=== PATIENT | male | born 1945 | race Caucasian/White ===

== ENCOUNTER 2016-06-21 10:03 | Observation (INO) | payer OTHER ==
[~2016-06-21] VITALS: Ht 160 cm; Wt 99.2 kg
[~2016-06-21 10:03] MED LIST: AMIO200T4 PO; APIX1TAB3 PO; ASPI81TA28 PO; CARV25TA2 PO; CHOL100010 PO; FENO145T26 PO; FRS/40 PO; LISI20TA3 PO; MAGN400T6 PO; METF1000 PO; NITR0.4S UT; POTA10CA28 PO; ROSU20TA PO; SPIR25TA PO; TERA5CAP PO
[2016-06-21] MEDS ORDERED: ONDANSETRON INJ 2 MG/ML 2 ML VIAL IV STA (10:58)
[2016-06-21] MEDS ORDERED: MoRPHine SULFATE 4 MG/ML 1 ML CARP\\VIAL IV STA ×2 (10:58→12:34)
[2016-06-21] MEDS ORDERED: CARVEDILOL 25 MG TAB PO STA (10:58)
[2016-06-21] MEDS ORDERED: LISINOPRIL 20 MG TAB PO STA (10:58)
[2016-06-21 11:32] LABS: BASO % 0.2 %; BASO ABS # 0.02 K/uL (0-0.2); COMPLETE YES; EOS % 0.8 %; IG% 0.3 %; LYMPH % 16.8 %; MEAN CELL VOLUME 90.7 fL (80-100); MEAN CORPUSCULAR HEMOGLOBIN 31.8 pg (25-34); MEAN PLATELET VOLUME 10.7 fL (7.4-10.4); MONO % 5.6 %; NEUT % 76.3 %; PLATELET COUNT 197 K/uL (130-400); RED BLOOD COUNT 5.51 M/uL (4.7-6.1); WHITE BLOOD COUNT 11.89 K/uL (4.8-10.8)
[2016-06-21 11:40] LABS: INR 1.1 (0.9-1.1); PROTHROMBIN TIME (PATIENT) 11.9 SECONDS (9.0-12.0)
--- NOTE | 2016-06-21 11:41 | DIAGNOSTIC IMAGING REPORT ---
LUMBAR SPINE 5 VIEWS CLINICAL HISTORY: Lumbar back pain. FINDINGS: 5 views of the lumbar spine are obtained. No prior studies are available for comparison at the time of dictation. The skeletal structures are osteopenic. There is no radiographic evidence of fracture or malalignment. Vertebral body height and alignment are maintained. There is straightening of the lumbar lordosis. The transverse and spinous processes appear intact. There is no evidence of spondylolysis. Large anterior osteophytes are seen throughout. There is moderate to advanced degenerative disc space narrowing at L5-S1 with associated endplate sclerosis and a posterior disc osteophyte complex at this level. Mild to moderate degenerative disc space narrowing is seen at the remaining lumbar levels. Posterior disc osteophyte complexes are also seen at L3-L4 and L4-L5. Facet arthropathy is noted in the lower lumbar region. The visualized bony pelvis appears intact. Numerous phleboliths are observed in the pelvis. There is a nonobstructed abdominal bowel gas pattern. Moderate to advanced atherosclerotic calcification is noted in the abdominal aorta. IMPRESSION: 1. There is no acute bony abnormality seen involving the lumbosacral spine. 2. Osteopenia and lumbosacral spondylosis as above. Dictated: 06/21/2016 11:37 AM Transcribed: 06/21/2016 11:41 AM RADHA_Elliot Electronically signed by: Jb Mckinney M.D. 06/21/2016 12:03 PM
[2016-06-21 11:45] LABS: URINE APPEARANCE CLEAR (CLEAR); URINE BILIRUBIN NEG (NEG); URINE COLOR YELLOW; URINE EPITHELIAL CELL AUTO >30 /lpf (0-5); URINE NITRITE NEG (NEG); URINE SPECIFIC GRAVITY 1.022 (1.000-1.030); UROBILINOGEN NEG (NEG)
[2016-06-21 11:52] LABS: BUN/CREATININE RATIO 17.1 (10-20); CALCIUM 9.1 mg/dl (8.5-10.1); POTASSIUM 3.4 mmol/L (3.5-5.1)
[2016-06-21 12:03] LABS: MANUAL MICROSCOPIC REQUIRED? NO; REVIEW REQ? NO
[2016-06-21] MEDS ORDERED: NITROGLYCERIN OINT 2% 1GM PACKET EXT ONE (12:45)
[2016-06-21] MEDS ORDERED: TRAM-453 PO (13:14)
[2016-06-21] MEDS ORDERED: ONDANSETRON INJ 2 MG/ML 2 ML VIAL IV PRN (13:15)
[2016-06-21] MEDS ORDERED: GLUCOSE 10 TABS/TUBE PO PRN (13:15)
[2016-06-21] MEDS ORDERED: DEXTROSE 50% 50 ML SYR IV PRN (13:15)
[2016-06-21] MEDS ORDERED: NITROGLYCERIN 0.4 MG SL PER TAB CHARGE SL PRN (13:15)
[2016-06-21] MEDS ORDERED: GLUCAGON FOR INJ 1 MG VIAL SQ PRN (13:15)
[2016-06-21] MEDS ORDERED: MoRPHine SULFATE 2 MG/ML CARP IV PRN (13:15)
[2016-06-21] MEDS ORDERED: ACETAMINOPHEN 325 MG TAB PO PRN (13:15)
[2016-06-21] MEDS ORDERED: GLUCOSE 40% GEL 15 GM TUBE PO PRN (13:15)
[2016-06-21] MEDS ORDERED: POTASSIUM CHLORIDE 10 MEQ TABCR PO SCH (13:16)
[2016-06-21] MEDS ORDERED: SPIRONOLACTONE 25 MG TAB PO SCH (13:16)
[2016-06-21] MEDS ORDERED: FUROSEMIDE 40 MG TAB PO SCH (13:16)
--- NOTE | 2016-06-21 13:32 | DIAGNOSTIC IMAGING REPORT ---
CHEST ONE VIEW PORTABLE CLINICAL HISTORY: Elevated troponin. Back pain. COMPARISON STUDY: Chest radiograph October 06, 2015. FINDINGS: There is no pneumothorax or pleural effusion. A dual lead left subclavian pacemaker is in place. Cardiomegaly is unchanged. There is no evidence of pulmonary edema. IMPRESSION: No acute cardiopulmonary findings. Stable cardiomegaly. Electronically signed by: Darrick Begum M.D. 06/21/2016 1:30 PM
--- NOTE | 2016-06-21 13:49 | History and Physical ---
History & Physical Date & Time of Service: Jun 21, 2016 at 13:26 Chief Complaint: Back Pain Primary Care Physician: Tadeo Barone M.D. History of Present Illness Source: patient, clinic records, hospital records Patient seen and examined. 71 year old male with PMHx of PAF s/p pacemaker on Eliquis, nonobstructing CAD, DM2, HTN and other problems listed below presents to the ED complaining of back pain x 1 week. Patient reports he has low back pain that radiates down the right leg. He describes the pain as sharp and rates it as a 10/10. The pain started when he was putting up the [place] tree. He says he has had this pain multiple times in the past and was told he has arthritis. He states it usually goes away in 3-4 days. He reports he hasn't been taking his medications as prescribed the last several days either. He denies fevers, chills, URI symptoms, chest pain, SOB, palpitations, nausea, vomiting, diarrhea, dysuria, incontinence, saddle anesthesia, calf pain, edema, falls, injuries. In the ED BP is significantly elevated >240 systolically, troponin is slightly bumped at 0.128. EKG is nonischemic, L-spine X-ray is without acute abnormality. He received his home BP meds, morphine and nitropaste and is resting comfortably. He will be observed for further workup and treatment. Past Medical/Surgical History Medical Problems: (1) CAD (coronary artery disease) Permanent Comment: Non-obstructive by cath in 2009 Status: Chronic (2) Chronic diastolic CHF (congestive heart failure), NYHA class 1 Permanent Comment: Echo 05/2015- EF 65-69%, grade II diastolic dysfunction, mild AV regurgitation, mildly enlarged aortic root and proximal ascending aorta Status: Chronic (3) CKD (chronic kidney disease), stage III Status: Chronic (4) DM type 2 (diabetes mellitus, type 2) Status: Chronic (5) Dyslipidemia Status: Chronic (6) Hypertension Status: Chronic (7) Paroxysmal a-fib Permanent Comment: on Coumadin Status: Chronic (8) Sleep apnea Permanent Comment: s/p UPPP Status: Chronic (9) Tachy-aquiles syndrome Permanent Comment: S/P pacemaker in 2013 Status: Chronic Surgical Problems: (1) H/O inguinal hernia repair Status: Chronic (2) H/O palate surgery Status: Chronic (3) H/O umbilical hernia repair Status: Chronic (4) History of cataract surgery Status: Chronic Family History Hypertension Kidney disease Stroke FATHER MOTHER Social History Smoking Status: Never Smoker Alcohol Use: none Drug Use: none Marital Status: Housing status: lives with significant other Occupational Status: employed, retired Immunizations History of Influenza Vaccine: Unknown Influenza Vaccine Date: Mar 13, 2013 History of Tetanus Vaccine?: Unknown History of Pneumococcal: Unknown History of Hepatitis B Vaccine: Unknown Allergies Coded Allergies: No Known Allergies (Unverified , 06/21/16) Home Medications Scheduled Amiodarone Hcl (Cordarone), 200 MG PO DAILY Apixaban (Eliquis), 5 MG PO BID Aspirin (Aspirin Ec), 81 MG PO QAM Carvedilol (Coreg), 37.5 MG PO BIDM Cholecalciferol (Vitamin D), 1,000 INTER.UNIT PO DAILY Fenofibrate (Tricor), 145 MG PO DAILY Furosemide (Lasix), 40 MG PO DAILY Gabapentin (Gabapentin), 300 MG PO TID Lidocaine (Lidocaine), 1 PATCH TD QAM Lisinopril (Prinivil), 20 MG PO BID Magnesium Oxide (Mag-Ox), 400 MG PO DAILY Metformin Hcl (Glucophage), 1,000 MG PO BIDM Potassium Chloride (Micro-K Ext Rel), 20 MEQ PO DAILY Rosuvastatin Calcium (Crestor), 20 MG PO HS Spironolactone (Aldactone), 12.5 MG PO DAILY Terazosin (Hytrin), 5 MG PO HS Scheduled PRN Hydrocodone/Acetaminophen 5MG/325MG ([place] 5MG/325MG), 1-2 TAB PO Q4H PRN for Pain Nitroglycerin (Nitrostat), 0.4 MG UT UD PRN for Chest Pain Tramadol Hcl (Ultram), 50 MG PO Q6H PRN for Pain Review of Systems See above for pertinent positives & negatives. A total of 10 systems reviewed and were otherwise negative. Physical Exam Vital Signs Date Time Temp Pulse Resp B/P Pulse Ox O2 Delivery O2 Flow Rate FiO2 06/21/16 12:41 80 17 196/108 95 06/21/16 12:23 60 06/21/16 12:01 74 22 202/103 94 Room Air 06/21/16 11:00 62 22 221/107 95 Room Air 06/21/16 10:10 88 06/21/16 10:09 37.0 90 20 254/123 92 Room Air General Appearance: + pertinent finding (Pleasant WD/WN 71 year old male lying in bed in NAD ) Head: normocephalic, atraumatic Eyes: EOMI, sclerae normal ENT: hearing grossly normal, pharynx normal Neck: supple, no JVD, trachea midline Respiratory/Chest: chest non-tender, lungs clear, normal breath sounds, no respiratory distress, no accessory muscle use Cardiovascular: regular rate, rhythm, no gallop, no JVD, no murmur, normal peripheral pulses Abdomen/GI: normal bowel sounds, non tender, soft Back: + pertinent finding (tenderness to palpation right SI, no rashes, bruising, muscle spasms noted ) Extremities/Musculoskelatal: no calf tenderness, normal capillary refill, + pedal edema (trace ) Neurologic/Psych: alert, oriented x 3, + pertinent finding (no motor or sensory deficits noted on gross exam ) Skin: normal color, warm/dry, no rash Lymphatic: no adenopathy Diagnostics Laboratory Results Results Past 24 Hours Test 06/21/16 11:10 06/21/16 11:15 Range/Units Urine Color YELLOW Urine Appearance CLEAR CLEAR Urine pH 6.0 4.5-7.5 Urine Specific [place] 1.022 1.000-1.030 Urine Protein 2+ NEG Urine Glucose (UA) 2+ NEG Urine Ketones NEG NEG Urine Occult Blood NEG NEG Urine Nitrite NEG NEG Urine Bilirubin NEG NEG Urine Urobilinogen NEG NEG Urine Leukocyte Esterase NEG NEG Urine WBC (Auto) 1-5 0-5 /hpf Urine RBC (Auto) 0-4 0-4 /hpf Urine Hyaline Casts (Auto) 1-5 0-5 /lpf Urine Epithelial Cells (Auto) >30 0-5 /lpf Urine Bacteria (Auto) NEG NEG White Blood Count 11.89 4.8-10.8 K/uL Red Blood Count 5.51 4.7-6.1 M/uL Hemoglobin 17.5 14.0-18.0 g/dL Hematocrit 50.0 42-52 % Mean Corpuscular Volume 90.7 80-100 fL Mean Corpuscular Hemoglobin 31.8 25-34 pg Mean Corpuscular Hemoglobin Concent 35.0 32-36 g/dl Platelet Count 197 130-400 K/uL Mean Platelet Volume 10.7 7.4-10.4 fL Neutrophils (%) (Auto) 76.3 % Lymphocytes (%) (Auto) 16.8 % Monocytes (%) (Auto) 5.6 % Eosinophils (%) (Auto) 0.8 % Basophils (%) (Auto) 0.2 % Neutrophils # (Auto) 9.07 1.4-6.5 K/uL Lymphocytes # (Auto) 2.00 1.2-3.4 K/uL Monocytes # (Auto) 0.67 0.11-0.59 K/uL Eosinophils # (Auto) 0.09 0-0.5 K/uL Basophils # (Auto) 0.02 0-0.2 K/uL RDW Standard Deviation 46.3 36.4-46.3 fL RDW Coefficient of Variation 14.0 11.5-14.5 % Immature Granulocyte % (Auto) 0.3 % Immature Granulocyte # (Auto) 0.04 0.00-0.02 K/uL Prothrombin Time 11.9 9.0-12.0 SECONDS Prothromb Time International Ratio 1.1 0.9-1.1 Activated Partial Thromboplast Time 24.9 21.0-31.0 SECONDS Partial Thromboplastin Ratio 1.0 Sodium Level 140 136-145 mmol/L Potassium Level 3.4 3.5-5.1 mmol/L Chloride Level 102 98-107 mmol/L Carbon Dioxide Level 29 21-32 mmol/L Anion Gap 9.0 3-11 mmol/L Blood Urea Nitrogen 17 7-18 mg/dl Creatinine 1.00 0.60-1.40 mg/dl Est Creatinine Clear Calc Drug Dose 70.3 ml/min Estimated GFR () 87.4 Estimated GFR (Non- 75.4 BUN/Creatinine Ratio 17.1 10-20 Random Glucose 200 70-99 mg/dl Calcium Level 9.1 8.5-10.1 mg/dl Total Bilirubin 0.7 0.2-1 mg/dl Direct Bilirubin 0.2 0-0.2 mg/dl Aspartate Amino Transf (AST/SGOT) 27 15-37 U/L Alanine Aminotransferase (ALT/SGPT) 44 12-78 U/L Alkaline Phosphatase 65 45-117 U/L Troponin I 0.189 0-0.045 ng/ml Total Protein 7.4 6.4-8.2 gm/dl Albumin 4.0 3.4-5.0 gm/dl Diagnostic Radiology L-spine XR Per radiologist read: IMPRESSION: 1. There is no acute bony abnormality seen involving the lumbosacral spine. 2. Osteopenia and lumbosacral spondylosis as above. EKG Atrial Paced with prolonged AV conduction 83 BPM QTc 509 Impression Assessment and Plan 71 year old male presents to the ED complaining of back pain since putting up his [place] tree one week ago - pain similar to other episodes LOW BACK PAIN -observation to tele -? sciatica, has history of similar pain in the past -L-spine XR negative -Pain control with Lidoderm patch, Percocet prn - warm compresses -PT/OT eval -if pain doesn't improve consider ortho consult and additional imaging - patient has pacemaker in situ HYPERTENSIVE URGENCY -SBP >240 upon arrival -did not take home meds - Improved to 170s systolically after home meds given - has not been compliant recently -Likely pain component as well -Continue home BP meds, add nitropaste for elevated troponin -pain control as above -monitor in tele ELEVATED TROPONIN - h/o nonobstructive CAD -troponin 0.189, no chest pain, SOB, no ekg changes -likely troponin leak secondary to HTN urgency -check CXR -monitor in tele -Serial Jeffrey, EKGs -nitropaste ordered -continue BB, Aspirin, Statin -if troponin continues may consider repeating Echo PAF -currently paced rhythm -continue Amiodarone, BB, Eliquis -monitor in tele HLD -continue Statin -check lipid panel Diastolic CHF -stable -Last echo with preserved EF, diastolic dysfunction grade 2 -appears euvolemic -continue Lasix, Aldactone DM2 -A1c pending -Hold po diabetic agents -SSI coverage -BSG AC HS -Consistent carbohydrate diet BPH -continue Hytrin DVT PROPHYLAXIS: Eliquis CODE STATUS: FULL CODE DISPO:observation pending further workup Patient seen in collaboration with Dr. Ng. He will be followed daily by Dr Laura Miranda Attending addendum: Agree with the above H&P in its entirety. Please see above for details Patient with complaints of persistent back pain since putting up a tree/ decorations, states that he has experienced similar pain in the past but it has generally never persisted beyond a few days unlike this time. He also reports the pain radiates down his leg and is made worse with movement. Denies any recent falls. Cardiac: RR, S1 and S2 auscultated Resp: CTA B/L MSK: pain and limited ROM with right straight leg raise, some pain on right with left straight leg raise; no cynanosis or edema LOW BACK PAIN: -most likely strain; unable to obtain MRI due to pacer, but could consider CT scan if pain is not improved with analgesia and therapy -PT/OT -analgesia -x ray does not suggest any fracture or dislocation VTE Prophylaxis VTE Risk Assessment Done? Y/N: Yes Risk Level: Moderate
[2016-06-21] MEDS ORDERED: IV FLUIDS COMPLETED PRN (14:30)
[2016-06-21 14:42] VITALS: BP 190/130; PULSE 61; TEMP 36.7; Ht 160 cm; Wt 99.2 kg
[2016-06-21 15:30] VITALS: BP 187/95; PULSE 64
[2016-06-21] MEDS ORDERED: INFLUENZA VIRUS QUAD VACCINE 0.5 ML SYR IM. ONE (15:45)
[2016-06-21] MEDS ORDERED: INFLUENZA ADMINISTRATION CHARGE ONE (15:45)
[2016-06-21] MEDS: LIDODERM (LIDOCAINE) PATCH 5% TD SCH (16:18)
[2016-06-21] MEDS: NITROGLYCERIN OINT 2% 1GM PACKET EXT SCH ×2 (16:19→23:21)
[2016-06-21] MEDS: CARVEDILOL 12.5 MG TAB PO SCH (16:19)
[2016-06-21] MEDS: INSULIN ASPART 100 UNITS/ML 3 ML PEN SC SCH ×2 (16:40→20:28)
--- NOTE | 2016-06-21 17:06 | EMERGENCY ROOM VISIT NOTE ---
History Report prepared by [place]: Everardo Sutton Under the Supervision of: Dr. Fredi Hernandez M.D. First contact with patient: 10:50 Chief Complaint: BACK PAIN Stated Complaint: BACK PAIN History of Present Illness The patient is a 71 year old male who presents to the Emergency Room with complaints of worsened lower back pain for the past week. The pain is sharp and radiates around his side towards the abdomen. The patient occasionally feels short of breath. The patient has pain radiating down his right leg. He denies any fevers, headaches, chest pain, abdominal pain, vomiting, diarrhea, rectal bleeding, or urinary symptoms. He also denies weakness or numbness of the extremities and incontinence of the bowel or bladder. The patient has had the same pain intermittently for years. He was diagnosed with arthritis by Dr. Barone three months ago. He was not given a prescription for pain. He did not see Dr. Barone this week. The patient is being treated for hypertension. He did not take his medications this morning. Source of History: patient Onset: one week Position: back (lower) Symptom Intensity: moderate Quality: sharp Timing: worsening Associated Symptoms: + SOB, No abdominal pain, No chest pain, No diarrhea, No fevers, No headache, No hematochezia, No numbness, No urinary symptoms, No vomiting, No weakness Review of Systems See HPI for pertinent positives & negatives. A total of 10 systems reviewed and were otherwise negative. 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 (17) Umbilical Hernia Surgical Problems: (1) H/O inguinal hernia repair (2) H/O palate surgery (3) H/O umbilical hernia repair (4) History of cataract surgery Family History Hypertension Kidney disease Stroke FATHER MOTHER Social History Smoking Status: Never Smoker Alcohol Use: none Drug Use: none Marital Status: Occupation Status: employed, retired Current/Historical Medications Scheduled Amiodarone Hcl (Cordarone), 200 MG PO DAILY Apixaban (Eliquis), 5 MG PO BID Aspirin (Aspirin Ec), 81 MG PO QAM Carvedilol (Coreg), 37.5 MG PO BIDM Cholecalciferol (Vitamin D), 1,000 INTER.UNIT PO DAILY Fenofibrate (Tricor), 145 MG PO DAILY Furosemide (Lasix), 40 MG PO DAILY Lisinopril (Prinivil), 20 MG PO BID Magnesium Oxide (Mag-Ox), 400 MG PO DAILY Metformin Hcl (Glucophage), 1,000 MG PO BIDM Potassium Chloride (Micro-K Ext Rel), 20 MEQ PO DAILY Rosuvastatin Calcium (Crestor), 20 MG PO HS Spironolactone (Aldactone), 12.5 MG PO DAILY Terazosin (Hytrin), 5 MG PO HS Scheduled PRN Nitroglycerin (Nitrostat), 0.4 MG UT UD PRN for Chest Pain Tramadol Hcl (Ultram), 50 MG PO Q6H PRN for Pain Allergies Coded Allergies: No Known Allergies (Unverified , 06/21/16) Physical Exam Vital Signs Date Time Temp Pulse Resp B/P Pulse Ox O2 Delivery O2 Flow Rate FiO2 06/21/16 12:41 80 17 196/108 95 06/21/16 12:23 60 06/21/16 12:01 74 22 202/103 94 Room Air 06/21/16 11:00 62 22 221/107 95 Room Air 06/21/16 10:10 88 06/21/16 10:09 37.0 90 20 254/123 92 Room Air Physical Exam Constitutional: Vital signs reviewed. Diaphoretic and hypertensive. Eyes: Pupils are equal round reactive to light. Conjunctiva are noninjected. ENT: Pharynx is clear without erythema or exudate. Mucous membranes are moist. Neck supple without meningeal signs. Respiratory: Clear to auscultation bilaterally. Breath sounds are equal bilaterally. Cardiovascular: Regular rate and rhythm. No rubs or gallops. GI: Soft, nondistended and nontender. Bowel sounds are present. Musculoskeletal: No peripheral edema. No CVA tenderness. Right SI joint tenderness, no midline tenderness to the lumbosacral spine. Positive straight leg raise on the right side. Integumentary: No cyanosis. Neurological: The patient is awake and alert. No focal deficits. Motor and sensation are intact in the lower extremities. Psychiatric: Normal affect. Medical Decision & Procedures ER Provider Diagnostic Interpretation: X-ray results as stated below per interpretation by me and the radiologist: LUMBAR SPINE 5 VIEWS: CLINICAL HISTORY: Lumbar back pain. FINDINGS: Five views of the lumbar spine are obtained. No prior studies are available for comparison at the time of dictation. The skeletal structures are osteopenic. There is no radiographic evidence of fracture or malalignment. Vertebral body height and alignment are maintained. There is straightening of the lumbar lordosis. The transverse and spinous processes appear intact. There is no evidence of spondylolysis. Large anterior osteophytes are seen throughout. There is moderate to advanced degenerative disc space narrowing at L5-S1 with associated endplate sclerosis and a posterior disc osteophyte complex at this level. Mild to moderate degenerative disc space narrowing is seen at the remaining lumbar levels. Posterior disc osteophyte complexes are also seen at L3-L4 and L4-L5. Facet arthropathy is noted in the lower lumbar region. The visualized bony pelvis appears intact. Numerous phleboliths are observed in the pelvis. There is a nonobstructed abdominal bowel gas pattern. Moderate to advanced atherosclerotic calcification is noted in the abdominal aorta. IMPRESSION: 1. There is no acute bony abnormalities seen involving the lumbosacral spine. 2. Osteopenia and lumbosacral spondylosis as above. Dictated: 06/21/2016 11:37 AM Transcribed: 06/21/2016 11:41 AM [facility] Laboratory Results 06/21/16 11:15 Red Blood Count 5.51, Mean Corpuscular Volume 90.7, Mean Corpuscular Hemoglobin 31.8, Mean Corpuscular Hemoglobin Concent 35.0, Mean Platelet Volume 10.7, Neutrophils (%) (Auto) 76.3, Lymphocytes (%) (Auto) 16.8, Monocytes (%) (Auto) 5.6, Eosinophils (%) (Auto) 0.8, Basophils (%) (Auto) 0.2, Neutrophils # (Auto) 9.07, Lymphocytes # (Auto) 2.00, Monocytes # (Auto) 0.67, Eosinophils # (Auto) 0.09, Basophils # (Auto) 0.02 06/21/16 11:15 Test 06/21/16 11:10 06/21/16 11:15 Urine Color YELLOW Urine Appearance CLEAR (CLEAR) Urine pH 6.0 (4.5-7.5) Urine Specific [place] 1.022 (1.000-1.030) Urine Protein 2+ (NEG) Urine Glucose (UA) 2+ (NEG) Urine Ketones NEG (NEG) Urine Occult Blood NEG (NEG) Urine Nitrite NEG (NEG) Urine Bilirubin NEG (NEG) Urine Urobilinogen NEG (NEG) Urine Leukocyte Esterase NEG (NEG) Urine WBC (Auto) 1-5 /hpf (0-5) Urine RBC (Auto) 0-4 /hpf (0-4) Urine Hyaline Casts (Auto) 1-5 /lpf (0-5) Urine Epithelial Cells (Auto) >30 /lpf (0-5) Urine Bacteria (Auto) NEG (NEG) White Blood Count 11.89 K/uL (4.8-10.8) Red Blood Count 5.51 M/uL (4.7-6.1) Hemoglobin 17.5 g/dL (14.0-18.0) Hematocrit 50.0 % (42-52) Mean Corpuscular Volume 90.7 fL (80-100) Mean Corpuscular Hemoglobin 31.8 pg (25-34) Mean Corpuscular Hemoglobin Concent 35.0 g/dl (32-36) Platelet Count 197 K/uL (130-400) Mean Platelet Volume 10.7 fL (7.4-10.4) Neutrophils (%) (Auto) 76.3 % Lymphocytes (%) (Auto) 16.8 % Monocytes (%) (Auto) 5.6 % Eosinophils (%) (Auto) 0.8 % Basophils (%) (Auto) 0.2 % Neutrophils # (Auto) 9.07 K/uL (1.4-6.5) Lymphocytes # (Auto) 2.00 K/uL (1.2-3.4) Monocytes # (Auto) 0.67 K/uL (0.11-0.59) Eosinophils # (Auto) 0.09 K/uL (0-0.5) Basophils # (Auto) 0.02 K/uL (0-0.2) RDW Standard Deviation 46.3 fL (36.4-46.3) RDW Coefficient of Variation 14.0 % (11.5-14.5) Immature Granulocyte % (Auto) 0.3 % Immature Granulocyte # (Auto) 0.04 K/uL (0.00-0.02) Prothrombin Time 11.9 SECONDS (9.0-12.0) Prothromb Time International Ratio 1.1 (0.9-1.1) Activated Partial Thromboplast Time 24.9 SECONDS (21.0-31.0) Partial Thromboplastin Ratio 1.0 Anion Gap 9.0 mmol/L (3-11) Est Creatinine Clear Calc Drug Dose 70.3 ml/min Estimated GFR () 87.4 Estimated GFR (Non- 75.4 BUN/Creatinine Ratio 17.1 (10-20) Calcium Level 9.1 mg/dl (8.5-10.1) Total Bilirubin 0.7 mg/dl (0.2-1) Direct Bilirubin 0.2 mg/dl (0-0.2) Aspartate Amino Transf (AST/SGOT) 27 U/L (15-37) Alanine Aminotransferase (ALT/SGPT) 44 U/L (12-78) Alkaline Phosphatase 65 U/L (45-117) Troponin I 0.189 ng/ml (0-0.045) Total Protein 7.4 gm/dl (6.4-8.2) Albumin 4.0 gm/dl (3.4-5.0) Laboratory results as reviewed by me. Medications Administered Medications (Trade) Dose Ordered Sig/Juliette Route Start Time Stop Time Status Last Admin Dose Admin Lisinopril (Zestril Tab) 20 mg NOW STAT PO 06/21/16 10:58 06/21/16 11:02 DC 06/21/16 11:21 20 MG Carvedilol (Coreg Tab) 37.5 mg NOW STAT PO 06/21/16 10:58 06/21/16 11:02 DC 06/21/16 11:21 37.5 MG Morphine Sulfate (MoRPHine SULFATE INJ) 4 mg NOW STAT IV 06/21/16 10:58 06/21/16 11:02 DC 06/21/16 11:12 4 MG Ondansetron HCl (Zofran Inj) 4 mg NOW STAT IV 06/21/16 10:58 06/21/16 11:02 DC 06/21/16 11:11 4 MG Nitroglycerin (Nitroglycerin 2% Oint) 1 inch NOW ONCE EXT 06/21/16 12:45 06/21/16 12:46 DC 06/21/16 12:42 1 INCH Morphine Sulfate (MoRPHine SULFATE INJ) 4 mg NOW STAT IV 06/21/16 12:34 06/21/16 12:35 DC 06/21/16 12:50 4 MG ECG Indication: back/shoulder pain Rate (beats per minute): 83 Rhythm: other (Atrial paced) Findings: LAFB, no acute ischemic change, paced rhythm (atrial paced) ED Course 1055: The patient was evaluated in room C9. A complete history and physical exam was performed. 1058: Zofran 4 mg IV, Morphine Sulfate 4 mg IV, Coreg 37.5 mg PO, Zestril 20 mg PO. 1150: The patient is feel ing better. I discussed his X-rays. waiting for the rest of his blood work. 1234: The patient is still hypertensive. His pain is now coming back. I discussed the test results with him. He has not had any chest discomfort or upper back pain. 1241: I discussed the case with [facility] Burk [facility] The patient will be evaluated. 1245: Nitroglycerin 1 inch EXT. Medical Decision This is a 71-year-old male who presents with low back pain and hypertension. Differential diagnosis includes lumbar disc disease, radiculopathy, spinal stenosis, pathologic fracture, compression fracture, hypertensive urgency, medication noncompliance. I did perform a limited focused review of portions of the patient's old chart on the electronic medical record. The patient has had no recent pertinent visits to this hospital. I did evaluate the patient as noted above. IV access was established. The patient was placed on a continuous partner. The patient is severely hypertensive. He does state that he did not take his medications this morning. He was therefore given lisinopril and carvedilol per his regular dose. The patient is also in significant pain and was given morphine and Zofran IV. I did order and personally review the patient's 12-lead EKG and lumbar x-rays as described above. His 12-lead EKG does not demonstrate any acute ST elevation. There is no acute fracture on x-ray. I did order and review the patient's blood work as noted in the electronic medical record. His troponin is elevated. I did reassess the patient. His blood pressure improved somewhat but then came back up. He was given nitroglycerin paste to lower his blood pressure. He denies having any sort of chest discomfort or pain. He is not currently short of breath. He was also given additional morphine for his pain. I did discuss the test results with them. I did recommend hospitalization for further evaluation of his symptoms. I did discuss the case with the hospitalist and adult protective caseworker. Consults Time Called: 1235 Consulting Physician: Cheryle Burk PA-C, [facility] Returned Call: [phone]: I discussed the case with Cheryle Burk PA[facility]C, [facility]. The patient will be evaluated. Impression Primary Impression: Hypertensive urgency Additional Impressions: Intractable low back pain, Elevated troponin Scribe Attestation The scribe's documentation has been prepared under my direct and personally reviewed by me in its entirety. I confirm that the note above accurately reflects all work, treatment, procedures, and medical decision making performed by me. Departure Information Dispostion Being Evaluated By Hospitalist Referrals Tadeo Barone M.D. (PCP) Patient Instructions A Signature Page, My [facility]
[2016-06-21 17:57] LABS: CKMB/CK RATIO 6.1 (0-3.0)
[2016-06-21 18:16] VITALS: BP_SYST 172; BP_DIAS 96; BP_DIAS 97; PULSE 67
[2016-06-21 20:21] VITALS: BP_SYST 170; BP_SYST 175; BP_DIAS 88; BP_DIAS 93; PULSE 61; TEMP 36.8; O2SAT 92
[2016-06-21] MEDS: ROSUVASTATIN CALCIUM 20 MG TAB PO SCH (20:25)
[2016-06-21] MEDS: LISINOPRIL 20 MG TAB PO SCH (20:26)
[2016-06-21] MEDS: APIXABAN 2.5 MG TAB PO SCH (20:26)
[2016-06-21 23:45] VITALS: BP 188/104; PULSE 71; TEMP 36.8; O2SAT 90
[2016-06-22] VITALS (8 sets, daily range): BP systolic 121–179; BP diastolic 69–92; PULSE 60–64; TEMP 36.6–36.8; O2SAT 94–95
[2016-06-22 00:20] LABS: CKMB/CK RATIO 5.5 (0-3.0)
[2016-06-22] MEDS: NITROGLYCERIN OINT 2% 1GM PACKET EXT SCH ×2 (05:42→11:56)
[2016-06-22] MEDS: INSULIN ASPART 100 UNITS/ML 3 ML PEN SC SCH ×4 (07:00→20:41)
[2016-06-22] MEDS: CARVEDILOL 12.5 MG TAB PO SCH ×2 (07:34→17:23)
[2016-06-22] MEDS: APIXABAN 2.5 MG TAB PO SCH ×2 (07:34→20:38)
[2016-06-22] MEDS: AMIODARONE 200 MG TAB PO SCH (07:34)
[2016-06-22] MEDS: ASPIRIN 81 MG ECTAB PO SCH (07:34)
[2016-06-22] MEDS: FENOFIBRATE 145 MG TAB PO SCH (07:35)
[2016-06-22] MEDS: LISINOPRIL 20 MG TAB PO SCH ×2 (07:35→20:37)
[2016-06-22] MEDS: POTASSIUM CHLORIDE 10 MEQ TABCR PO SCH (07:35)
[2016-06-22] MEDS: CHOLECALCIFEROL 1000 INTER.UNIT TAB PO SCH (07:35)
[2016-06-22] MEDS: MAGNESIUM OXIDE 400 MG TAB PO SCH (07:35)
[2016-06-22] MEDS: LIDODERM (LIDOCAINE) PATCH 5% TD SCH (07:36)
[2016-06-22 08:05] LABS: ESTIMATED AVERAGE GLUCOSE 174 mg/dl; HA1C FLAG Normal (Normal)
[2016-06-22 08:24] LABS: BUN/CREATININE RATIO 22.2 (10-20); CALCIUM 8.6 mg/dl (8.5-10.1); CREATININE 1.1 mg/dl (0.60-1.40); MAGNESIUM 1.9 mg/dl (1.8-2.4); POTASSIUM 3.4 mmol/L (3.5-5.1)
[2016-06-22 08:27] LABS: CHOLESTEROL/HDL RATIO 6.1
[2016-06-22 08:58] LABS: MEAN CELL VOLUME 92.9 fL (80-100); MEAN CORPUSCULAR HEMOGLOBIN 31.5 pg (25-34); MEAN PLATELET VOLUME 10.7 fL (7.4-10.4); PLATELET COUNT 140 K/uL (130-400); RED BLOOD COUNT 4.63 M/uL (4.7-6.1); WHITE BLOOD COUNT 7.26 K/uL (4.8-10.8)
[2016-06-22] MEDS: SPIRONOLACTONE 25 MG TAB PO SCH (09:00)
[2016-06-22] MEDS: FUROSEMIDE 40 MG TAB PO SCH (09:00)
--- NOTE | 2016-06-22 16:17 | Progress Note ---
Medicine Progress Note Date & Time of Visit: Jun 22, 2016 at 15:53. Subjective 71 yo M with acute exacerbation of chronic lower back pain. 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 About two weeks ago he moved the wrong way and felt pain that hasn't let up for that last two weeks. He reports trying APAP and heating pads at home with no relief. In the past, when he got pain, it would go away on it's own with time. He denies trying any methods of pain control other than those mentioned above and is sedentary. No issues with bowel or bladder function and he denies any numbness or tingling. He was able to walk with PT somewhat this morning. He reports the pain is sharp and radiates down his buttock on the right side, sometimes down to the calf, depending on position. He reports flexing forward at the waist alleviates the pain, usually. Unable to take NSAIDs as he is on Elliquis for afib. Unable to get MRI lower back 2/2 PM. He denies CP and SOB at this time. Objective Last 8 Hrs Date Time Temp Pulse Resp B/P Pulse Ox O2 Delivery O2 Flow Rate FiO2 06/22/16 12:22 Room Air 06/22/16 11:46 36.7 64 18 151/79 94 Room Air 06/22/16 10:48 64 94 06/22/16 08:40 Room Air 06/22/16 08:27 36.8 62 18 166/82 95 Room Air Physical Exam: GEN: Obese, in no acute distress, alert and appropriate HEENT: NC/AT, PERRL, normal sclerae CARDIO: reg rate, S1/2 heard without m/g/r LUNGS: CTA bilaterally, no crackles, rales or wheezes, good diaphragmatic excursion ABD: soft, protuberant, +BS, non-tender, non-distended, no rebound or guarding EXTREMITY: RP and DP palpable 2+ bilat, no LE swelling or edema, extremities are warm and well-perfused NEURO: CN 2-12 grossly intact, sensation intact throughout lower extremities, 2/ 4 reflexes in knees, NEG SLR bilaterally MUSC: 5/5 hip flexion/extension, 5/5 knee extension/flexion, 5/5 hip abduction/ adduction, 5/5 dorsi/plantarflexion, no focal deficits, gait was not assessed 2/ 2 pain and fall risk SKIN: warm and dry Laboratory Results: Last 24 Hours Test 06/21/16 16:28 06/21/16 17:02 06/21/16 20:20 06/21/16 23:20 Bedside Glucose 206 mg/dl 176 mg/dl Total Creatine Kinase 44 U/L 44 U/L Creatine Kinase MB 2.7 ng/ml 2.4 ng/ml Creatine Kinase MB Ratio 6.1 5.5 Troponin I 0.171 ng/ml 0.143 ng/ml Test 06/22/16 06:59 06/22/16 07:22 06/22/16 07:28 06/22/16 11:24 Bedside Glucose 162 mg/dl 169 mg/dl White Blood Count 7.26 K/uL Red Blood Count 4.63 M/uL Hemoglobin 14.6 g/dL Hematocrit 43.0 % Mean Corpuscular Volume 92.9 fL Mean Corpuscular Hemoglobin 31.5 pg Mean Corpuscular Hemoglobin Concent 34.0 g/dl RDW Standard Deviation 48.6 fL RDW Coefficient of Variation 14.4 % Platelet Count 140 K/uL Mean Platelet Volume 10.7 fL Sodium Level 141 mmol/L Potassium Level 3.4 mmol/L Chloride Level 102 mmol/L Carbon Dioxide Level 29 mmol/L Anion Gap 10.0 mmol/L Blood Urea Nitrogen 24 mg/dl Creatinine 1.10 mg/dl Est Creatinine Clear Calc Drug Dose 62.7 ml/min Estimated GFR () 77.9 Estimated GFR (Non- 67.2 BUN/Creatinine Ratio 22.2 Random Glucose 181 mg/dl Calcium Level 8.6 mg/dl Magnesium Level 1.9 mg/dl Triglycerides Level 219 mg/dl Cholesterol Level 201 mg/dl HDL Cholesterol 33 mg/dl LDL Cholesterol, Calculated 124 mg/dl VLDL Cholesterol, Calculated 44 mg/dl Cholesterol/HDL Ratio 6.1 Estimated Average Glucose 174 mg/dl Hemoglobin A1c 7.7 % Assessment & Plan 71 year old male presents to the ED complaining of back pain since putting up his Ruth tree one week ago - pain similar to other episodes LOW BACK PAIN -likely MSK in nature, paraspinal TTP and pain in glutes, patient was able to ambulate with PT today but this was limited 2/2 pain. Cannot have MRI because of pacemaker. He has not tried conservative therapies as outpatient for this long-standing pain. Denies PT, Tramadol, Narcotics or other medications aside from Tylenol. Possible underlying spinal stenosis 2/2 description given with flexion improving the pain and extension worsening it. No neuro deficits on exam today and no reports of loss of bowel or bladder function. L spine xray is negative for fracture or acute misalignment. SLR is negative bilaterally. Will give Valium for muscle relaxation and schedule some Tylenol and see how he feels in the morning. OK to continue the Lidocaine patch and heating pad for now. Cont PT daily. HYPERTENSIVE URGENCY 2/2 medication noncompliance. Has improved overnight to 150s systolic. Asymptomatic at this time. Cont current antihypertensives including Coreg, Lasix, Lisinopril, and aldactone. Cont to monitor. Will consult Cardiology for elevated troponin and assistance with antihypertensives. ELEVATED TROPONIN - h/o nonobstructive CAD, asymptomatic, likely related to hypertensive urgency. Peaked and trended down. Will ask cards team to eval and weigh in on if repeat echo is needed. Will d/c nitropaste and cont BB, ASA , Statin. PAF: paced rhythm, cont Amio, Elliquis, BB. Dyslipidemia: lipids appear controlled except slight elevation of triglycerides. Uncertain if total compliance, cont fenofibrate and statin. Diastolic CHF -chronic, compensated. -Last echo with preserved EF, diastolic dysfunction grade 2 -appears euvolemic -continue Lasix, Aldactone DM2 -A1c 7.7 -Hold po diabetic agents -SSI coverage -BSG AC HS -Consistent carbohydrate diet BPH -continue Hytrin DVT PROPHYLAXIS: Eliquis CODE STATUS: FULL CODE DO [facility] Consultants: Mayur. Current Inpatient Medications: Current Inpatient Medications Medications (Trade) Dose Ordered Sig/Juliette Route Start Time Stop Time Status Last Admin Dose Admin Acetaminophen (Tylenol Tab) 650 mg Q4H PRN PO 06/21/16 13:15 07/21/16 13:14 06/21/16 23:19 650 MG Ondansetron HCl (Zofran Inj) 4 mg Q6H PRN IV 06/21/16 13:15 07/21/16 13:14 Nitroglycerin (Nitrostat Tab) 0.4 mg UD PRN SL 06/21/16 13:15 07/21/16 13:14 Nitroglycerin (Nitroglycerin 2% Oint) 1 inch Q6 EXT 06/21/16 18:00 07/21/16 17:59 06/22/16 11:56 1 INCH Lidocaine (Lidoderm Patch 5%) 1 patch QAM TD 06/21/16 13:15 07/21/16 13:14 06/22/16 07:36 1 PATCH Miscellaneous (Remove Lidoderm Patch) 1 ea DAILY@21 N/A 06/21/16 21:00 07/21/16 20:59 06/21/16 20:24 1 EA Morphine Sulfate (MoRPHine SULFATE INJ) 2 mg Q3H PRN IV 06/21/16 13:15 07/05/16 13:14 Insulin Aspart (novoLOG ASPART) SLIDING SCALE If C... ACHS SC 06/21/16 16:15 07/21/16 16:14 06/22/16 11:00 6 UNITS Glucose (Glucose 40% Gel) 15-30 GRAMS 15 GRAMS... UD PRN PO 06/21/16 13:15 07/21/16 13:14 Glucose (Glucose Chew Tab) 4-8 Tablets 4 Tabl... UD PRN PO 06/21/16 13:15 07/21/16 13:14 Dextrose (Dextrose 50% 50ML Syringe) 25-50ML OF 50% DW IV FOR... UD PRN IV 06/21/16 13:15 07/21/16 13:14 Glucagon (Glucagon Inj) 1 mg UD PRN SQ 06/21/16 13:15 07/21/16 13:14 Amiodarone HCl (Cordarone Tab) 200 mg DAILY PO 06/22/16 09:00 07/22/16 08:59 06/22/16 07:34 200 MG Aspirin (Ecotrin Tab) 81 mg QAM PO 06/22/16 09:00 07/22/16 08:59 06/22/16 07:34 81 MG Carvedilol (Coreg Tab) 37.5 mg BIDM PO 06/21/16 16:45 07/21/16 17:59 06/22/16 07:34 37.5 MG Cholecalciferol (Vitamin D Tab) 1,000 inter.unit DAILY PO 06/22/16 09:00 07/22/16 08:59 06/22/16 07:35 1,000 INTER.UNIT Fenofibrate (Tricor Tab) 145 mg DAILY PO 06/22/16 09:00 07/22/16 08:59 06/22/16 07:35 145 MG Furosemide (Lasix tab) 40 mg DAILY PO 06/22/16 09:00 07/22/16 08:59 06/22/16 09:00 40 MG Lisinopril (Zestril Tab) 20 mg BID PO 06/21/16 21:00 07/21/16 20:59 06/22/16 07:35 20 MG Magnesium Oxide (Mag-Ox Tab) 400 mg DAILY PO 06/22/16 09:00 07/22/16 08:59 06/22/16 07:35 400 MG Potassium Chloride (Klor-Con M10) 20 meq DAILY PO 06/22/16 09:00 07/22/16 08:59 06/22/16 07:35 20 MEQ Rosuvastatin Calcium (Crestor Tab) 20 mg HS PO 06/21/16 21:00 07/21/16 20:59 06/21/16 20:25 20 MG Spironolactone (Aldactone Tab) 12.5 mg DAILY PO 06/22/16 09:00 07/22/16 08:59 06/22/16 09:00 12.5 MG Terazosin HCl (Hytrin Cap) 5 mg HS PO 06/21/16 21:00 07/21/16 20:59 06/21/16 20:26 5 MG Apixaban (Eliquis Tab) 5 mg BID PO 06/21/16 21:00 07/21/16 20:59 06/22/16 07:34 5 MG Oxycodone/ Acetaminophen (Percocet 5-325MG Tab) 1 tab Q4H PRN PO 06/21/16 13:30 07/05/16 13:29 Miscellaneous (Iv Fluids Completed) 1 ea PRN PRN N/A 06/21/16 14:30 06/21/17 14:29
[2016-06-22] MEDS: DIAZEPAM 5MG TAB PO SCH ×2 (17:23→21:49)
[2016-06-22] MEDS: ACETAMINOPHEN 325 MG TAB PO SCH ×2 (17:25→23:26)
[2016-06-22] MEDS ORDERED: POTASSIUM CHLORIDE 10 MEQ TABCR PO ONE (17:49)
[2016-06-22] MEDS: ROSUVASTATIN CALCIUM 20 MG TAB PO SCH (20:38)
[2016-06-23] VITALS (7 sets, daily range): BP systolic 126–171; BP diastolic 75–95; PULSE 58–61; TEMP 36.5–36.8; O2SAT 90–97
[2016-06-23] MEDS: OXYCODONE/ACETAMINOPHEN 5-325 TAB PO PRN (00:04)
--- NOTE | 2016-06-23 01:57 | CARDIOLOGY CONSULTATION ---
DATE OF CONSULTATION: 06/22/2016 REFERRING PHYSICIAN: Bhargavi Miranda DO PRIMARY CARE PHYSICIAN: Dr. Barone HISTORY OF PRESENT ILLNESS: The patient is a 71-year-old male followed by [facility] cardiology who carries a history of hypertension; hypertensive heart disease; past decompensated diastolic heart failure; history of paroxysmal atrial fibrillation, controlled in sinus rhythm with tachybrady syndrome, prior pacemaker insertion in 2003, chronic anticoagulation with Eliquis; underlying medical problems of type 2 diabetes mellitus, chronic renal insufficiency stage 3 and obstructive sleep apnea. The patient presented on this admission predominantly complaining of severe back pain, uncontrollable with oral Tylenol at home. The pain is associated with severe spasms radiating down the back. Symptoms were severe enough to limit the patient's oral intake with patient noting he is being noncompliant with antihypertensives recently. The pain radiates from the back down across the right groin into the thigh and lower leg. On presentation, the patient was found to be markedly hypertensive with systolic blood pressures greater than 250. The patient was treated with pain medications and resumed on patient's usual antihypertensive therapies. He is referred now for further evaluation. He is currently more comfortable today. Blood pressures have been trending downward. He does admit to some moderate volume overload and fluid retention in the abdomen and lower extremities. He has resumed oral diuretic today. He notes no fevers, chills or productive cough. He notes no chest pains or discomfort. He notes no dizziness or lightheadedness. He notes no syncope or near syncope. Back pain is predominantly in the lower back and as described with radicular pattern. Laboratory studies have demonstrated a flat, but elevated troponin. He is referred now for further evaluation. ALLERGIES: None. MEDICATIONS: Prior to hospitalization as ordered were; amiodarone 200 mg p.o. daily, Eliquis 5 mg p.o. b.i.d., aspirin 81 mg per day, carvedilol 37.5 mg b.i.d., fenofibrate 145 mg p.o. daily, Lasix 40 mg daily, Prinivil 20 mg b.i.d., Mag-Ox 400 mg p.o. daily, Glucophage 1000 mg b.i.d., potassium chloride 10 mEq 2 tablets per day, Crestor 20 mg p.o. at bedtime, spironolactone 12.5 mg p.o. daily, Hytrin 5 mg at bedtime and tramadol p.r.n. pain. PAST SURGICAL HISTORY: Notable for umbilical hernia repair in November 2011, past prior pacemaker insertion in 2013, uvuloplasty in September 1997, remote inguinal herniorrhaphy and cataract extractions. FAMILY HISTORY: Noncontributory. SOCIAL HISTORY: The patient is a nonsmoker with prior history of tobacco use. Uses no significant alcoholic products. PHYSICAL EXAMINATION: Today, at the time of examination: VITAL SIGNS: Heart rate 64, blood pressure is 145/77. HEENT: Normocephalic, atraumatic. Nares are without discharge. Throat was clear. NECK: Supple without thyromegaly or lymphadenopathy. LUNGS: Clear to auscultation. CARDIOVASCULAR: Regular. There is no S3, but there is an S4 gallop. ABDOMEN: Obese, soft with mild distention. EXTREMITIES: Reveal hannah indurated changes of the lower extremities with 1-2+ lower extremity edema. There are intact distal pulses. DATA: EKG reveals atrial paced rhythm, but nonspecific intraventricular conduction delay. LABORATORY STUDIES: White cell count 7.2, hemoglobin is 14.5, hematocrit is 43.0, platelet count 140. Sodium is 141, potassium is 3.4, chloride is 102, bicarbonate is 29, BUN is 24, creatinine is 1.1, glucose is 169. Cholesterol is 201; LDL 124, HDL of 33. Chest x-ray revealed no infiltrate or edema. Troponins since admission were notable for 0.18, 0.17 and 0.14. IMPRESSION: A 71-year-old male, who presented with severe back pain, radicular in description with unrelenting back spasm. He had significant and markedly elevated history of hypertension, hypertensive urgency and recent medical noncompliance. He is now improving since resumption of pre-hospital medical therapies. Blood pressures are trending downward. Troponins are elevated in a pattern consistent with likely hypertensive urgency and demand rather than acute ischemic syndrome or coronary syndrome. Echocardiogram will be reviewed in the a.m. TSH will be ordered to be checked given history of chronic amiodarone use. Rhythms will remain sinus. We will supplement potassium given relatively low potassium this evening and resumption of oral diuretic. We will follow up patient in the hospital. MCKINLEY
[2016-06-23] MEDS: ACETAMINOPHEN 325 MG TAB PO SCH ×4 (06:18→23:25)
[2016-06-23] MEDS: DIAZEPAM 5MG TAB PO SCH ×5 (06:18→22:12)
[2016-06-23] MEDS ORDERED: PERFLUTREN LIPID MICROSPHERE (DEFINITY) IV ONE (07:18)
[2016-06-23] MEDS: FUROSEMIDE 40 MG TAB PO SCH (08:22)
[2016-06-23] MEDS: APIXABAN 2.5 MG TAB PO SCH ×2 (08:22→21:01)
[2016-06-23] MEDS: INSULIN ASPART 100 UNITS/ML 3 ML PEN SC SCH ×4 (08:22→20:59)
[2016-06-23] MEDS: MAGNESIUM OXIDE 400 MG TAB PO SCH (08:22)
[2016-06-23] MEDS: CHOLECALCIFEROL 1000 INTER.UNIT TAB PO SCH (08:23)
[2016-06-23] MEDS: POTASSIUM CHLORIDE 10 MEQ TABCR PO SCH (08:23)
[2016-06-23] MEDS: SPIRONOLACTONE 25 MG TAB PO SCH (08:25)
[2016-06-23] MEDS: FENOFIBRATE 145 MG TAB PO SCH (08:25)
[2016-06-23] MEDS: LISINOPRIL 20 MG TAB PO SCH ×2 (08:26→21:00)
[2016-06-23] MEDS: CARVEDILOL 12.5 MG TAB PO SCH ×2 (08:26→17:28)
[2016-06-23] MEDS: ASPIRIN 81 MG ECTAB PO SCH (08:26)
[2016-06-23] MEDS: AMIODARONE 200 MG TAB PO SCH (08:27)
[2016-06-23] MEDS: LIDODERM (LIDOCAINE) PATCH 5% TD SCH (08:28)
--- NOTE | 2016-06-23 08:41 | ECHOCARDIOGRAM REPORT ---
*NOTICE TO RECEIVING LIBERTARIAN AGENCY This information is strictly Confidential and protected under [place] law. [place] law prohibits you from making any further disclosure of this information unless further disclosure is expressly permitted by the written consent of the person to whom it pertains or is authorized by law. A general authorization for the release of medical or other information is not sufficient for this purpose. Hospital accepts no responsibility if the information is made available to any other person, INCLUDING THE PATIENT. Interpretation Summary * Name: BRITTNEE FOSTER JR Study Date: 06/23/2016 06:49 AM BP: 148/85 mmHg * Patient Location: C.2T\S\S240\S\2 HR: 61 * : 1945 (M/d/y) Gender: Male Height: 63 in * Age: 71 yrs Ethnicity: [place] Weight: 208 lb * Ordering Physician: Winston Angela MD, [facility] * Performed By: Alina Alex * * Reason For Study: CHEST PAIN * BSA: 2.0 m2 * -- Conclusions -- * No significant change compared to previous study of 10/07/15. * Normal LV chamber size with moderate concentric LVH, sigmoid appearing septum. * Normal LV systolic function, EF 60-65%. * No segmental left ventricular wall motion abnormalities are noted. * Grade I diastolic dysfunction. * Mild aortic regurgitation. * Mild left atrial enlargement. Procedure Details * A complete two-dimensional transthoracic echocardiogram was performed (2D, M-mode, Doppler and color flow Doppler). * A contrast injection of Definity was performed to improve assessment of LV function. * Contrast was injected into an intravenous site in the left arm. * One vial of Definity ultrasound contrast was diluted in normal saline to a total volume of 10 ml. A total of '2' ml of solution was administered during imaging. * Lot # [id number] of Definity utilized for procedure. * Expiration date 12/10. Left Ventricle * The left ventricle is normal in size. * There is moderate concentric left ventricular hypertrophy. * Ejection Fraction = 60-65%. * Left ventricular systolic function is normal. * No segmental left ventricular wall motion abnormalities are noted. * The left ventricular wall motion is normal. Right Ventricle * The right ventricular cavity size is normal (basal dimension <4.2 cm in right ventricular apical 4-chamber view). * The right ventricular systolic function is normal as assessed by tricuspid annular plane systolic excursion (TAPSE) (normal >1.5 cm). Atria * The left atrium is mildly dilated. * Right atrial size is normal. * No ASD detected; PFO is not assessed. Mitral Valve * The mitral valve is normal in structure and function. Tricuspid Valve * The tricuspid valve is normal in structure and function. Aortic Valve * The aortic valve is trileaflet. * No hemodynamically significant valvular aortic stenosis. * Mild aortic regurgitation. Pulmonic Valve * The pulmonary valve is not well seen, but the Doppler examination is normal without significant regurgitation or stenosis. Great Vessels * The aortic root is normal size. Pericardium/Pleural * There is no pericardial effusion. Left Ventricular Diastolic Function * Grade I diastolic dysfunction, (abnormal relaxation pattern). MMode 2D Measurements and Calculations IVSd 0.65 cm IVSs 0.75 cm LVIDd 4.7 cm LVIDs 2.9 cm LVPWd 0.87 cm LVPWs 1.4 cm IVS/LVPW 0.75 FS 38.4 % EDV(Teich) 104.4 ml ESV(Teich) 32.7 ml EF(Teich) 68.7 % EDV(cubed) 106.5 ml ESV(cubed) 24.9 ml EF(cubed) 76.7 % % IVS thick 14.8 % % LVPW thick 58.1 % LV mass(C)d 115.9 grams LV mass(C)dI 58.9 grams/m\S\2 LV mass(C)s 86.2 grams LV mass(C)sI 43.8 grams/m\S\2 SV(Teich) 71.7 ml SI(Teich) 36.5 ml/m\S\2 SV(cubed) 81.6 ml SI(cubed) 41.5 ml/m\S\2 ACS 1.4 cm asc Aorta Diam 3.9 cm LVOT diam 1.7 cm LVOT area 2.2 cm\S\2 LVAd ap4 34.8 cm\S\2 LVLd ap4 8.3 cm EDV(MOD-sp4) 117.4 ml EDV(sp4-el) 124.2 ml LVAs ap4 16.1 cm\S\2 LVLs ap4 6.5 cm ESV(MOD-sp4) 32.3 ml ESV(sp4-el) 33.8 ml EF(MOD-sp4) 72.5 % EF(sp4-el) 72.8 % LVAd ap2 31.2 cm\S\2 LVLd ap2 8.0 cm EDV(MOD-sp2) 97.6 ml EDV(sp2-el) 103.1 ml LVAs ap2 15.6 cm\S\2 LVLs ap2 7.0 cm ESV(MOD-sp2) 29.0 ml ESV(sp2-el) 29.5 ml EF(MOD-sp2) 70.3 % EF(sp2-el) 71.3 % LVLd %diff -2.93 % EDV(MOD-bp) 106.5 ml LVLs %diff 6.1 % ESV(MOD-bp) 29.4 ml EF(MOD-bp) 72.4 % SV(MOD-sp4) 85.1 ml SI(MOD-sp4) 43.3 ml/m\S\2 SV(MOD-sp2) 68.7 ml SI(MOD-sp2) 34.9 ml/m\S\2 SV(MOD-bp) 77.1 ml SI(MOD-bp) 39.2 ml/m\S\2 SV(sp4-el) 90.4 ml SI(sp4-el) 46.0 ml/m\S\2 SV(sp2-el) 73.5 ml SI(sp2-el) 37.4 ml/m\S\2 Doppler Measurements and Calculations MV E max justin 69.4 cm/sec MV A max justin 109.6 cm/sec MV E/A 0.63 MV dec time 0.25 sec Ao V2 max 142.3 cm/sec Ao max PG 8.1 mmHg Ao max PG (full) 1.4 mmHg PARKER(V,A) 2.0 cm\S\2 PARKER(V,D) 2.0 cm\S\2 AI max justin 265.0 cm/sec AI max PG 28.1 mmHg AI dec slope 125.2 cm/sec\S\2 AI P1/2t 619.7 msec LV V1 max PG 6.7 mmHg LV V1 mean PG 3.7 mmHg LV V1 max 129.0 cm/sec LV V1 mean 90.9 cm/sec LV V1 VTI 31.4 cm SV(LVOT) 68.8 ml SI(LVOT) 35.0 ml/m\S\2 PA V2 max 79.1 cm/sec PA max PG 2.5 mmHg
[2016-06-23 09:07] LABS: HEMATOCRIT 42.5 % (42-52); MEAN CELL VOLUME 92.6 fL (80-100); MEAN CORPUSCULAR HEMOGLOBIN 31.8 pg (25-34); MEAN CORPUSCULAR HGB CONC 34.4 g/dl (32-36); MEAN PLATELET VOLUME 10.9 fL (7.4-10.4); PLATELET COUNT 148 K/uL (130-400); RED BLOOD COUNT 4.59 M/uL (4.7-6.1)
[2016-06-23 09:39] LABS: BUN/CREATININE RATIO 19.4 (10-20); CALCIUM 8.6 mg/dl (8.5-10.1); CREATININE 1.1 mg/dl (0.60-1.40); MAGNESIUM 2.1 mg/dl (1.8-2.4); POTASSIUM 3.7 mmol/L (3.5-5.1)
--- NOTE | 2016-06-23 10:56 | Cardiology Follow-Up ---
Subjective General Date of Service: Jun 23, 2016. History of Present Illness Patient seen and examined. Admitted with significant lower back pain with associated muscular spasms. Marked hypertensive urgency observed, felt to be in association with the significant back pain and noncompliance with his prescribed antihypertensive regimen. Blood pressure significantly improved; 254/123 on presentation, currently with SBP's 140-150's June 23, 2016 TTE Interpretation Summary ([facility], Dr. Cantu): No significant change compared to previous study of 10/07/15. Normal LV chamber size with moderate concentric LVH, sigmoid appearing septum. Normal LV systolic function, EF 60-65%. No segmental left ventricular wall motion abnormalities are noted. Grade I diastolic dysfunction. Mild aortic regurgitation. Mild left atrial enlargement. Telemetry: Atrial paced, sinus in the 60's. Occasional PVC. Rare ventricular pacing. June 07, 2016 Pacemaker Interrogation revealed appropriate function. Estimated remaining longevity was 6 years. Rhythm AP 99%, RV paced 1.1%. No atrial fibrillation noted. Allergies Coded Allergies: No Known Allergies (Unverified , 06/21/16) Social History Smoking Status: Never Smoker Hx Tobacco Use In Past Year?: No Hx Alcohol Use - Type And Amou: No Hx Substance Use - Type And Am: No Problem List Medical Problems: (1) Acute decompensated heart failure Status: Acute (2) Hypertensive urgency Status: Acute (3) Intractable low back pain Status: Acute Physical Exam Vital Signs Last Vital Signs Documentation Date Time Temp Pulse Resp B/P Pulse Ox O2 Delivery O2 Flow Rate FiO2 06/23/16 08:01 36.6 61 18 156/90 90 Room Air Physical Exam Constitutional: General Apperance: overweight Level of Distress: NAD Ambulation: ambulation with walker Psychiatric: Mental Status: active & alert Orientation: to time, to place, to person Memory: recent memory normal, remote memory normal Head: normocephalic, atraumatic Eyes: Pupils: PERRLA Neck: pertinent finding (Normal JVP) Lungs: Respiratory effort: no dyspnea, good air movement Auscultation: breath sounds normal, CTA except as noted, no wheezing, no rales/crackles, no rhonchi Cardiovascular: Heart Auscultation: RRR, normal S1, normal S2, no rubs, no gallops, II/ SHABANA Peripheral Pulses: Radial Pulse: normal on the left, normal on the right Dorsalis Pedis Pulse: normal on the left, normal on the right Abdomen: Bowel Sounds: normal Inspection & Palpation: soft, non-distended, no tenderness, guarding & rebound, no masses, no CVA tenderness Extremities: no cyanosis, no edema, no varicosities, no clubbing Neurologic: Cranial Nerves: grossly intact Assessment and Plan Assessment and Plan 71-year-old male admitted with severe back pain, unrelenting back spasms. Presentation notable for markedly elevated blood pressures, hypertensive urgency. Resumption of his prior antihypertensive regimen has significantly aided blood pressures. Mildly elevated troponins felt to be secondary to hypertensive urgency and demand rather than an acute coronary syndrome. Echocardiogram stable. LFT's and TSH OK with chronic amiodarone use. Potassium replaced. Rhythms remain sinus. Fluid retention has resolved. Will continue current therapies as prescribed. Would increase carvedilol to 50 mg twice per day if needed for additional blood pressure control, prior to adding additional therapy. Patient personally seen. Blood pressure improved today, back pain much better. Agree with plan as above. Winston Angela MD Laboratory Results Last 24 Hours Test 06/22/16 11:24 06/22/16 15:53 06/22/16 17:50 06/22/16 20:26 Bedside Glucose 169 mg/dl 129 mg/dl 165 mg/dl Thyroid Stimulating Hormone (TSH) 0.518 uIu/ml Test 06/23/16 06:42 06/23/16 08:50 Bedside Glucose 161 mg/dl White Blood Count 6.80 K/uL Red Blood Count 4.59 M/uL Hemoglobin 14.6 g/dL Hematocrit 42.5 % Mean Corpuscular Volume 92.6 fL Mean Corpuscular Hemoglobin 31.8 pg Mean Corpuscular Hemoglobin Concent 34.4 g/dl RDW Standard Deviation 47.9 fL RDW Coefficient of Variation 14.2 % Platelet Count 148 K/uL Mean Platelet Volume 10.9 fL Sodium Level 137 mmol/L Potassium Level 3.7 mmol/L Chloride Level 101 mmol/L Carbon Dioxide Level 29 mmol/L Anion Gap 7.0 mmol/L Blood Urea Nitrogen 21 mg/dl Creatinine 1.10 mg/dl Est Creatinine Clear Calc Drug Dose 64.1 ml/min Estimated GFR () 77.9 Estimated GFR (Non- 67.2 BUN/Creatinine Ratio 19.4 Random Glucose 240 mg/dl Calcium Level 8.6 mg/dl Magnesium Level 2.1 mg/dl
[2016-06-23] MEDS ORDERED: MoRPHine SULFATE 4 MG/ML 1 ML CARP\\VIAL IV PRN (13:45)
[2016-06-23] MEDS ORDERED: HYDROmorphone INJ 1 MG/ML SYR IV ONE (13:50)
--- NOTE | 2016-06-23 14:03 | Progress Note ---
Medicine Progress Note Date & Time of Visit: Jun 23, 2016 at 13:49. Subjective Worse pain overnight, then he was fine this morning, but now the pain is severe again (same intensity as pain level on admission) He reports some help from the scheduled APAP and Valium, but it appears he requires a little more Tolerating PO Otherwise no symptoms Cards saw him for elevated trop and elevated BP Objective Last 8 Hrs Date Time Temp Pulse Resp B/P Pulse Ox O2 Delivery O2 Flow Rate FiO2 06/23/16 12:02 Room Air 06/23/16 11:37 36.8 60 18 126/75 93 Room Air 06/23/16 08:01 36.6 61 18 156/90 90 Room Air 06/23/16 08:00 Room Air Physical Exam: GEN: Obese, in no acute distress, alert and appropriate HEENT: NC/AT, PERRL, normal sclerae CARDIO: reg rate, S1/2 heard without m/g/r LUNGS: CTA bilaterally, no crackles, rales or wheezes, good diaphragmatic excursion ABD: soft, protuberant, +BS, non-tender, non-distended, no rebound or guarding EXTREMITY: RP and DP palpable 2+ bilat, no LE swelling or edema, extremities are warm and well-perfused NEURO: CN 2-12 grossly intact, sensation intact throughout lower extremities, 2/ 4 reflexes in knees, NEG SLR bilaterally MUSC: 5/5 hip flexion/extension, 5/5 knee extension/flexion, 5/5 hip abduction/ adduction, 5/5 dorsi/plantarflexion, no focal deficits, gait was not assessed 2/ 2 pain and fall risk SKIN: warm and dry Laboratory Results: Last 24 Hours Test 06/22/16 15:53 06/22/16 17:50 06/22/16 20:26 06/23/16 06:42 Bedside Glucose 129 mg/dl 165 mg/dl 161 mg/dl Thyroid Stimulating Hormone (TSH) 0.518 uIu/ml Test 06/23/16 08:50 White Blood Count 6.80 K/uL Red Blood Count 4.59 M/uL Hemoglobin 14.6 g/dL Hematocrit 42.5 % Mean Corpuscular Volume 92.6 fL Mean Corpuscular Hemoglobin 31.8 pg Mean Corpuscular Hemoglobin Concent 34.4 g/dl RDW Standard Deviation 47.9 fL RDW Coefficient of Variation 14.2 % Platelet Count 148 K/uL Mean Platelet Volume 10.9 fL Sodium Level 137 mmol/L Potassium Level 3.7 mmol/L Chloride Level 101 mmol/L Carbon Dioxide Level 29 mmol/L Anion Gap 7.0 mmol/L Blood Urea Nitrogen 21 mg/dl Creatinine 1.10 mg/dl Est Creatinine Clear Calc Drug Dose 64.1 ml/min Estimated GFR () 77.9 Estimated GFR (Non- 67.2 BUN/Creatinine Ratio 19.4 Random Glucose 240 mg/dl Calcium Level 8.6 mg/dl Magnesium Level 2.1 mg/dl Assessment & Plan 71 year old male presents to the ED complaining of back pain since putting up his [place] tree one week ago - pain similar to other episodes LOW BACK PAIN -likely MSK in nature, paraspinal TTP and pain in glutes, ambulation limited 2/2 pain. Cannot have MRI because of pacemaker. He has not tried conservative therapies as outpatient for this long-standing pain. Denies PT, Tramadol, Narcotics or other medications aside from Tylenol. Possible underlying spinal stenosis 2/2 description given with flexion improving the pain and extension worsening it. No neuro deficits on exam and no reports of loss of bowel or bladder function. L spine xray is negative for fracture or acute misalignment. SLR is negative bilaterally. Will increase Valium for muscle relaxation and schedule some Tylenol and as his pain is intense will give IV narcotics. Goal as inpatient is to get him OK from a pain standpoint and then send him home with something as needed. Ultimately, control of this may require more outpatient trial and error. OK to continue the Lidocaine patch and heating pad for now. Cont PT daily. Consult pain management. HYPERTENSIVE URGENCY 2/2 medication noncompliance. Has improved overnight to 150s systolic. Asymptomatic at this time. Cont current antihypertensives including Coreg, Lasix, Lisinopril, and aldactone. Cont to monitor. Cardiology agrees with continuation of prehospital medications and TTE was performed revealing normal EF, no wall motion abnormalities and LVH. ELEVATED TROPONIN - h/o nonobstructive CAD, asymptomatic, likely related to hypertensive urgency. Peaked and trended down. Echo as above, no concerns for ACS. Cont BB, ASA, Statin. Appreciate Cardiology evaluation of this patient. PAF: paced rhythm, cont Vasile Garcia, BB. Dyslipidemia: lipids appear controlled except slight elevation of triglycerides. Uncertain if total compliance, cont fenofibrate and statin. Diastolic CHF -chronic, compensated. -Last echo with preserved EF, diastolic dysfunction grade 2, now Grade I. -appears euvolemic -continue Lasix, Aldactone DM2 -A1c 7.7 -Hold po diabetic agents -SSI coverage -glycemic pharmacist requested for assistance -BSG AC HS BPH -continue Hytrin DVT PROPHYLAXIS: Eliquis CODE STATUS: FULL CODE DO [facility] Hospital[facility] Consultants: Mayur. Current Inpatient Medications: Current Inpatient Medications Medications (Trade) Dose Ordered Sig/Juliette Route Start Time Stop Time Status Last Admin Dose Admin Ondansetron HCl (Zofran Inj) 4 mg Q6H PRN IV 06/21/16 13:15 07/21/16 13:14 Nitroglycerin (Nitrostat Tab) 0.4 mg UD PRN SL 06/21/16 13:15 07/21/16 13:14 Lidocaine (Lidoderm Patch 5%) 1 patch QAM TD 06/21/16 13:15 07/21/16 13:14 06/23/16 08:28 1 PATCH Miscellaneous (Remove Lidoderm Patch) 1 ea DAILY@21 N/A 06/21/16 21:00 07/21/16 20:59 06/22/16 20:39 1 EA Insulin Aspart (novoLOG ASPART) SLIDING SCALE If C... ACHS SC 06/21/16 16:15 07/21/16 16:14 06/23/16 08:22 4 UNITS Glucose (Glucose 40% Gel) 15-30 GRAMS 15 GRAMS... UD PRN PO 06/21/16 13:15 07/21/16 13:14 Glucose (Glucose Chew Tab) 4-8 Tablets 4 Tabl... UD PRN PO 06/21/16 13:15 07/21/16 13:14 Dextrose (Dextrose 50% 50ML Syringe) 25-50ML OF 50% DW IV FOR... UD PRN IV 06/21/16 13:15 07/21/16 13:14 Glucagon (Glucagon Inj) 1 mg UD PRN SQ 06/21/16 13:15 07/21/16 13:14 Amiodarone HCl (Cordarone Tab) 200 mg DAILY PO 06/22/16 09:00 07/22/16 08:59 06/23/16 08:27 200 MG Aspirin (Ecotrin Tab) 81 mg QAM PO 06/22/16 09:00 07/22/16 08:59 06/23/16 08:26 81 MG Carvedilol (Coreg Tab) 37.5 mg BIDM PO 06/21/16 16:45 07/21/16 17:59 06/23/16 08:26 37.5 MG Cholecalciferol (Vitamin D Tab) 1,000 inter.unit DAILY PO 06/22/16 09:00 07/22/16 08:59 06/23/16 08:23 1,000 INTER.UNIT Fenofibrate (Tricor Tab) 145 mg DAILY PO 06/22/16 09:00 07/22/16 08:59 06/23/16 08:25 145 MG Furosemide (Lasix tab) 40 mg DAILY PO 06/22/16 09:00 07/22/16 08:59 06/23/16 08:22 40 MG Lisinopril (Zestril Tab) 20 mg BID PO 06/21/16 21:00 07/21/16 20:59 06/23/16 08:26 20 MG Magnesium Oxide (Mag-Ox Tab) 400 mg DAILY PO 06/22/16 09:00 07/22/16 08:59 06/23/16 08:22 400 MG Potassium Chloride (Klor-Con M10) 20 meq DAILY PO 06/22/16 09:00 07/22/16 08:59 06/23/16 08:23 20 MEQ Rosuvastatin Calcium (Crestor Tab) 20 mg HS PO 06/21/16 21:00 07/21/16 20:59 06/22/16 20:38 20 MG Spironolactone (Aldactone Tab) 12.5 mg DAILY PO 06/22/16 09:00 07/22/16 08:59 06/23/16 08:25 12.5 MG Terazosin HCl (Hytrin Cap) 5 mg HS PO 06/21/16 21:00 07/21/16 20:59 06/22/16 20:37 5 MG Apixaban (Eliquis Tab) 5 mg BID PO 06/21/16 21:00 07/21/16 20:59 12/29/16 08:22 5 MG Oxycodone/ Acetaminophen (Percocet 5-325MG Tab) 1 tab Q4H PRN PO 06/21/16 13:30 07/05/16 13:29 06/23/16 00:04 1 TAB Miscellaneous (Iv Fluids Completed) 1 ea PRN PRN N/A 06/21/16 14:30 06/21/17 14:29 Acetaminophen (Tylenol Tab) 650 mg Q6 PO 06/22/16 18:00 06/24/16 16:04 06/23/16 08:27 650 MG Diazepam (Valium Tab) 10 mg Q8 PO 06/23/16 14:00 07/23/16 13:59 Hydromorphone HCl (Dilaudid Inj) 0.5 mg NOW ONCE IV 06/23/16 13:50 06/23/16 13:51 Morphine Sulfate (MoRPHine SULFATE INJ) 4 mg Q3H PRN IV 06/23/16 13:45 07/07/16 13:44 UNV
[2016-06-23] MEDS ORDERED: PHARMACY GLYCEMIC MGMT CONSULT SCH (14:22)
--- NOTE | 2016-06-23 15:05 | Pharmacy Progress Note ---
Glycemic Control Intl Consult Date of Service Jun 23, 2016. Scope Glycemic Pharmacist consulted by Dr Miranda on 06/23/16 for glycemic control and to write orders per [facility] inpatient glycemic control protocol. Objective Weight (Kilograms): 98.500 Accuchecks BSG (last 24hrs): Test 06/22/16 15:53 06/22/16 20:26 06/23/16 06:42 06/23/16 08:50 Bedside Glucose 129 mg/dl (70-99) 165 mg/dl (70-99) 161 mg/dl (70-99) Random Glucose 240 mg/dl (70-99) Laboratory Data (last 24hrs) Test 06/23/16 08:50 Anion Gap 7.0 mmol/L BUN/Creatinine Ratio 19.4 Blood Urea Nitrogen 21 mg/dl Creatinine 1.10 mg/dl Potassium Level 3.7 mmol/L Sodium Level 137 mmol/L White Blood Count 6.80 K/uL HbA1c Test 06/22/16 07:28 Hemoglobin A1c 7.7 % (4.5-5.6) H Recent Pertinent Medications Outpatient Anti-diabetic Regimen: * Metformin 1gm PO BID with meals * A1c = 7.7 % (06/22/16) The patient is currently receiving: * Basal insulin: none * Correctional Insulin: Novolog Correction per scale ACHS Goal Range: Low 100 mg/dL - High 140 mg/dL Correction Factor: 45 mg/dL/unit * Prandial insulin: Per carb ratio of 1 unit per 15 grams CHO consumed * Oral Agents: on hold during admission Assessment & Plan ASSESSMENT: 06/23/16: * Patient is a 71yo diabetic male, admitted for severe back pain and elevated troponin. Patient apparently had not taken any of his medications for a couple of days prior to admission d/t not feeling well. * Blood sugars were elevated on admission, but have been reasonable for the past 24 hours or so with the use of Novolog. * Patient received 14 units of Novolog yesterday with BSGs ranging from 129 - 165 mg/dL. * Patient's A1c (7.7%) indicates fairly reasonable outpatient glycemic control in a 71yo male with multiple co-morbidities. * Will tighten Novolog parameters at this time to provide additional coverage and bring BSGs closer to goal range. * ADA & AACE recommend a goal blood sugar range 140-180 mg/dl for the majority of critically ill & non-critically ill patients. However, more stringent targets may be selected in individual cases. * Will continue with current goal range, as it seems appropriate for patient. PLAN FOR INPATIENT GLYCEMIC CONTROL: * No basal insulin at this time * Correctional Insulin with NOVOLOG per scale ACHS or Q6hrs while NPO * Change correction factor to 35 mg/dl/unit * Change carb ratio to 1 unit per 12 grams CHO consumed * Continue goal range: Low 100 mg/dL - High 140 mg/dL * Please note that the plan above was derived based on current level of insulin resistance and hospital stress. These recommendations are appropriate for inpatient admission only. Plan of care upon discharge will need to be reassessed to avoid potential outpatient hypo/hyperglycemia. Thank you.
[2016-06-23] MEDS: ROSUVASTATIN CALCIUM 20 MG TAB PO SCH (21:00)
[2016-06-24] MEDS: OXYCODONE/ACETAMINOPHEN 5-325 TAB PO PRN (02:20)
[2016-06-24 03:44] VITALS: BP 140/65; PULSE 62; TEMP 36.7; O2SAT 94
[2016-06-24] MEDS: DIAZEPAM 5MG TAB PO SCH (06:30)
[2016-06-24] MEDS: ACETAMINOPHEN 325 MG TAB PO SCH ×2 (06:30→11:55)
[2016-06-24 07:51] VITALS: BP 157/91; PULSE 60; TEMP 36.2; O2SAT 97
[2016-06-24] MEDS: POTASSIUM CHLORIDE 10 MEQ TABCR PO SCH (08:06)
[2016-06-24] MEDS: ASPIRIN 81 MG ECTAB PO SCH (08:08)
[2016-06-24] MEDS: APIXABAN 2.5 MG TAB PO SCH ×2 (08:08→21:20)
[2016-06-24] MEDS: FENOFIBRATE 145 MG TAB PO SCH (08:09)
[2016-06-24] MEDS: MAGNESIUM OXIDE 400 MG TAB PO SCH (08:09)
[2016-06-24] MEDS: CHOLECALCIFEROL 1000 INTER.UNIT TAB PO SCH (08:09)
[2016-06-24] MEDS: CARVEDILOL 12.5 MG TAB PO SCH ×3 (08:09→17:30)
[2016-06-24] MEDS: LISINOPRIL 20 MG TAB PO SCH ×2 (08:10→21:20)
[2016-06-24] MEDS: LIDODERM (LIDOCAINE) PATCH 5% TD SCH (08:10)
[2016-06-24] MEDS: SPIRONOLACTONE 25 MG TAB PO SCH (08:11)
[2016-06-24] MEDS: INSULIN ASPART 100 UNITS/ML 3 ML PEN SC SCH ×4 (08:17→21:00)
--- NOTE | 2016-06-24 09:35 | Cardiology Follow-Up ---
Subjective General Date of Service: Jun 24, 2016. Chief Complaint: Back pain Pt evaluation today including: conversation w/ patient, physical exam, chart review, lab review, review of studies, conversation w/ reporting process consultant, review of inpatient medication list History of Present Illness Patient seen and examined. + Back pain. Patient markedly hypertensive on presentation, felt to be in association with the significant back pain and noncompliance with his prescribed antihypertensive regimen. Data: June 23, 2016 TTE Interpretation Summary ([facility], Dr. Cantu): No significant change compared to previous study of 10/07/15. Normal LV chamber size with moderate concentric LVH, sigmoid appearing septum. Normal LV systolic function, EF 60-65%. No segmental left ventricular wall motion abnormalities are noted. Grade I diastolic dysfunction. Mild aortic regurgitation. Mild left atrial enlargement. Telemetry: Atrial paced, sinus in the 60's. Occasional PVC in singles. Rare ventricular pacing. June 07, 2016 Pacemaker Interrogation revealed appropriate function. Estimated remaining longevity was 6 years. Rhythm AP 99%, RV paced 1.1%. No atrial fibrillation noted. Allergies Coded Allergies: No Known Allergies (Unverified , 06/21/16) Social History Smoking Status: Never Smoker Hx Tobacco Use In Past Year?: No Hx Alcohol Use - Type And Amou: No Hx Substance Use - Type And Am: No Problem List Medical Problems: (1) Acute decompensated heart failure Status: Acute (2) Hypertensive urgency Status: Acute (3) Intractable low back pain Status: Acute Physical Exam Vital Signs Last Vital Signs Documentation Date Time Temp Pulse Resp B/P Pulse Ox O2 Delivery O2 Flow Rate FiO2 06/24/16 07:51 36.2 60 20 157/91 97 Room Air Physical Exam Constitutional: General Apperance: overweight Level of Distress: NAD Ambulation: ambulation with walker Psychiatric: Mental Status: active & alert Orientation: to time, to place, to person Memory: recent memory normal, remote memory normal Head: normocephalic, atraumatic Eyes: Pupils: PERRLA Neck: pertinent finding (Normal JVP) Lungs: Respiratory effort: no dyspnea, good air movement Auscultation: breath sounds normal, CTA except as noted, no wheezing, no rales/crackles, no rhonchi Cardiovascular: Heart Auscultation: RRR, normal S1, normal S2, no rubs, no gallops, II/ SHABANA Peripheral Pulses: Radial Pulse: normal on the left, normal on the right Dorsalis Pedis Pulse: normal on the left, normal on the right Abdomen: Bowel Sounds: normal Inspection & Palpation: soft, non-distended, no tenderness, guarding & rebound, no masses, no CVA tenderness Extremities: no cyanosis, no edema, no varicosities, no clubbing Neurologic: Cranial Nerves: grossly intact Assessment and Plan Assessment and Plan 71-year-old male admitted with severe back pain. Presentation notable for markedly elevated blood pressures, hypertensive urgency. Resumption of his prior antihypertensive regimen has significantly aided blood pressures. Mildly elevated troponins felt to be secondary to hypertensive urgency and demand rather than an acute coronary syndrome. Echocardiogram stable. LFT's and TSH OK with chronic amiodarone use. Potassium replaced. Rhythms remain sinus. Fluid retention back to baseline. Will continue current therapies as prescribed. Would increase carvedilol to 50 mg twice per day if needed for additional blood pressure control, prior to adding additional therapy. OK to hold Eliquis for future epidural steroid injection if deemed necessary. Patient seen assessment as above Winston Angela MD
[2016-06-24] MEDS: AMIODARONE 200 MG TAB PO SCH (10:00)
[2016-06-24] MEDS: HYDROCODONE/ACETAMOPHEN 5/325MG TAB PO PRN ×4 (10:02→23:26)
[2016-06-24] MEDS: GABAPENTIN 100 MG CAP PO SCH ×2 (10:17→21:19)
[2016-06-24] MEDS: FUROSEMIDE 40 MG TAB PO SCH (10:17)
[2016-06-24] MEDS ORDERED: INFLUENZA VIRUS QUAD VACCINE 0.5 ML SYR IM. ONE (10:19)
--- NOTE | 2016-06-24 10:34 | CONSULTATION REPORT ---
DATE OF CONSULTATION: 06/24/2016 DATE OF CONSULTATION: 06/24/2016. EHR reviewed, patient examined. HISTORY OF PRESENT ILLNESS: Mr. Rayray Celaya is a 71-year-old male admitted to [facility] with complaint of axial low back pain on the right side that radiates into the right proximal lower extremity. He also has significant comorbid conditions including history of paroxysmal atrial fibrillation, status post pacemaker on antiplatelet therapy with Eliquis, nonobstructive coronary vascular disease, diabetes type 2, hypertension and obesity. He reports this morning that he has a history of chronic low back pain and spinal stenosis related symptoms. He states that he gets intermittent pain that he rates 10/10 when severe lasting 3-4 days at a time. Pain is exacerbated with ambulation. He reports experiencing back pain when standing up and spinal claudication with ambulation, more so on the right than left. He is able to ambulate approximately 50 feet before he has to stop and sit down. Pain is also exacerbated with extension of the lumbar spine. It is relieved with forward flexion. Previous treatments have included mild opioid analgesics as an outpatient intermittently and [id number] analgesics. He has not had interventional therapy. Currently, he is on oxycodone with moderate efficacy. He denies any saddle anesthesia, bowel or bladder incontinence, or any sensory or motor symptoms other than proprioceptive difficulties with ambulation. PAST MEDICAL HISTORY: Significant for comorbid conditions as stated above. PHYSICAL EXAMINATION: Exam demonstrates Mr. Celaya to be appearing his stated age of 71. His BMI is 38.8. Inspection of his lumbar spine demonstrates loss of lumbar lordosis. He has decreased range of motion, extension with complaint of right-sided paraspinal pain. He demonstrates normal forward flexion which is limited due to body habitus. Palpation of the midline spinous processes and interspinous ligaments of the lumbar spine demonstrated no pain or symptoms. Palpation over the paraspinous region over the facet joint produces pain on the right side in the distal lumbar spine over the L3 to L5/S1 facet joints. Provocative testing of the SI joint is unremarkable. Neurologically, he has normal straight leg raising. He has intact sensation and motor strength in a sitting position. Gait was not tested. ASSESSMENT: 1. Lumbar spinal stenosis by history and examination. 2. Facet hypertrophy and facet related pain distal lumbar spine, right side. TREATMENT AND RECOMMENDATIONS: 1. Recommend obtaining a CT scan of the lumbar spine to evaluate the extent and the level of spinal stenosis. 2. Recommend lumbar epidural steroid injections or transforaminal injections depending on findings of CT scan. The patient will need to hold his Eliquis prior to the procedure. The procedure can be performed as an outpatient at [facility]. Inherent risks, benefits were discussed with Mr. Celaya. He has agreed to proceed. He has an appointment scheduled after discharge at [facility] to be evaluated and will confirm with his treating medical or surgical instrument maker that his antiplatelet therapy can be discontinued prior to the procedure. In the meantime, recommend hydrocodone/acetaminophen for analgesia on a p.r.n. basis and scheduled dose of 100 mg gabapentin t.i.d. Orders written. The patient has a follow-up appointment scheduled at [facility].
--- NOTE | 2016-06-24 11:39 | Pharmacy Progress Note ---
Glycemic: Assessment & Plan Date of Service Jun 24, 2016. Assessment & Plan Outpatient Anti-diabetic Regimen: * Metformin 1gm PO BID with meals * A1c = 7.7 % (06/22/16) ASSESSMENT: 06/24/16: * Patient received 12 units of insulin yesterday, with BSGs ranging from 131 - 174 mg/dL. * Since BSGs have been relatively well-controlled on current regimen, will not add basal coverage at this time. If patient is not discharged in the next day or so, will reconsider adding small dose of Lantus. Will tighten Novolog parameters slightly at this time. * Expect that patient may resume home regimen after discharge. 06/23/16 * Patient is a 71yo diabetic male, admitted for severe back pain and elevated troponin. Patient apparently had not taken any of his medications for a couple of days prior to admission d/t not feeling well. * Blood sugars were elevated on admission, but have been reasonable for the past 24 hours or so with the use of Novolog. * Patient received 14 units of Novolog yesterday with BSGs ranging from 129 - 165 mg/dL. * Patient's A1c (7.7%) indicates fairly reasonable outpatient glycemic control in a 71yo male with multiple co-morbidities. * Will tighten Novolog parameters at this time to provide additional coverage and bring BSGs closer to goal range. * ADA & AACE recommend a goal blood sugar range 140-180 mg/dl for the majority of critically ill & non-critically ill patients. However, more stringent targets may be selected in individual cases. * Will continue with current goal range, as it seems appropriate for patient. PLAN FOR INPATIENT GLYCEMIC CONTROL: * No basal insulin at this time * Correctional Insulin with NOVOLOG per scale ACHS or Q6hrs while NPO * Change correction factor to 30 mg/dl/unit * Change carb ratio to 1 unit per 10 grams CHO consumed * Continue goal range: Low 100 mg/dL - High 140 mg/dL * Please note that the plan above was derived based on current level of insulin resistance and hospital stress. These recommendations are appropriate for inpatient admission only. Plan of care upon discharge will need to be reassessed to avoid potential outpatient hypo/hyperglycemia. Thank you.
[2016-06-24 11:40] VITALS: BP 148/86; PULSE 60; TEMP 36.6; O2SAT 96
--- NOTE | 2016-06-24 13:30 | DIAGNOSTIC IMAGING REPORT ---
CT LUMBAR SPINE WITHOUT CT DOSE: 1725.68 mGy.cm CLINICAL HISTORY: spinal stenosis TECHNIQUE: Helical images were acquired in transverse plane. Reformatted sagittal and coronal images were reviewed. CONTRAST: No contrast was administered COMPARISON STUDY: Conventional radiographic study dated 06/21/2016 FINDINGS: L1-2 level: There are prominent anterior and lateral osteophytes. No focal herniations are visualized. There is no significant spinal or foraminal stenosis L2-3 level: There is a circumferential disc bulge present. There is mild to moderate spinal stenosis. There is no significant foraminal narrowing L3-4 level: There is a circumferential disc bulge present. There is moderate spinal stenosis. There is no significant foraminal narrowing. L4-5 level: There is a circumferential disc bulge. There is moderate spinal stenosis. There is no significant foraminal narrowing L5-S1 level: There is a prominent disc osteophyte complex. There is moderate secondary deformity of thecal sac. The disc osteophyte complexes asymmetric to the left. There is left-sided foraminal narrowing. IMPRESSION: 1. No fractures or traumatic subluxations identified 2. Multilevel spondylitic changes with spinal stenosis at the L2-3 through L5-S1 levels Electronically signed by: Azar Goyal M.D. 06/24/2016 1:28 PM
[2016-06-24 15:23] VITALS: BP 157/84; PULSE 61; TEMP 36.2; O2SAT 94
[2016-06-24 16:55] VITALS: BP 157/84; PULSE 61; TEMP 36.2; O2SAT 94
[2016-06-24 17:03] VITALS: BP 168/90; PULSE 64; TEMP 36.2; O2SAT 96
[2016-06-24] MEDS: ROSUVASTATIN CALCIUM 20 MG TAB PO SCH (21:20)
[2016-06-25 00:16] VITALS: BP 151/100; PULSE 76; TEMP 36.5; O2SAT 94
[2016-06-25 01:13] VITALS: BP 154/82
[2016-06-25] MEDS ORDERED: HYDROmorphone INJ 1 MG/ML SYR IV PRN (02:30)
[2016-06-25] MEDS: HYDROCODONE/ACETAMOPHEN 5/325MG TAB PO PRN ×3 (02:40→22:23)
[2016-06-25 07:37] VITALS: BP 146/87; PULSE 65; TEMP 37.2; O2SAT 97
[2016-06-25] MEDS: CARVEDILOL 12.5 MG TAB PO SCH ×2 (07:45→17:19)
[2016-06-25] MEDS: FENOFIBRATE 145 MG TAB PO SCH (07:45)
[2016-06-25] MEDS: CHOLECALCIFEROL 1000 INTER.UNIT TAB PO SCH (07:45)
[2016-06-25] MEDS: LISINOPRIL 20 MG TAB PO SCH ×2 (07:45→20:23)
[2016-06-25] MEDS: ASPIRIN 81 MG ECTAB PO SCH (07:45)
[2016-06-25] MEDS: AMIODARONE 200 MG TAB PO SCH (07:46)
[2016-06-25] MEDS: POTASSIUM CHLORIDE 10 MEQ TABCR PO SCH (07:46)
[2016-06-25] MEDS: FUROSEMIDE 40 MG TAB PO SCH (07:46)
[2016-06-25] MEDS: APIXABAN 2.5 MG TAB PO SCH ×2 (07:46→20:23)
[2016-06-25] MEDS: SPIRONOLACTONE 25 MG TAB PO SCH (07:46)
[2016-06-25] MEDS: MAGNESIUM OXIDE 400 MG TAB PO SCH (07:46)
[2016-06-25] MEDS: LIDODERM (LIDOCAINE) PATCH 5% TD SCH (07:47)
[2016-06-25] MEDS: GABAPENTIN 100 MG CAP PO SCH (07:47)
--- NOTE | 2016-06-25 07:54 | Progress Note ---
Medicine Progress Note Date & Time of Visit: Jun 24, 2016 at 15:47. Subjective -no pain overnight -pain management saw him today and changed the plan for med management, pt tolerating well -poss outpatient back injections. -CT scan L-spine reveals osteophytes and some DDD -denies other issues Objective Last 8 Hrs Date Time Temp Pulse Resp B/P Pulse Ox O2 Delivery O2 Flow Rate FiO2 06/24/16 15:23 36.2 61 18 157/84 94 Room Air 06/24/16 12:43 Room Air 06/24/16 11:40 36.6 60 20 148/86 96 Room Air 06/24/16 08:00 Room Air 06/24/16 07:51 36.2 60 20 157/91 97 Room Air Physical Exam: GEN: Obese, in no acute distress, alert and appropriate, sitting in chair HEENT: NC/AT, normal sclerae CARDIO: reg rate, S1/2 heard without m/g/r LUNGS: CTA bilaterally, no crackles, rales or wheezes, good diaphragmatic excursion ABD: protuberant, Soft, not distended or tender EXTREMITY: warm and well-perfused NEURO: CN 2-12 grossly intact, sensation intact throughout lower extremities MUSC: 5/5 hip flexion/extension, 5/5 knee extension/flexion, 5/5 hip abduction/ adduction, 5/5 dorsi/plantarflexion, no focal deficits, gait was not assessed SKIN: warm and dry Laboratory Results: Last 24 Hours Test 06/24/16 10:49 Bedside Glucose 166 mg/dl Assessment & Plan 71 year old male presents to the ED complaining of back pain since putting up his Ruth tree one week ago - pain similar to other episodes LOW BACK PAIN -likely MSK in natureCannot have MRI because of pacemaker. He has not tried conservative therapies as outpatient for this long-standing pain, including no narcotics. Denies PT, Tramadol, Narcotics or other medications aside from Tylenol. Possible underlying spinal stenosis 2/2 description given with flexion improving the pain and extension worsening it. No neuro deficits on exam and no reports of loss of bowel or bladder function. L spine xray is negative for fracture or acute misalignment. SLR is negative bilaterally. Pain Management saw him and CT Lspine reveald some DDD--he was placed on Gabapentin and low dose narcotic for breatkthrough with option for outpatient spinal injections-very much appreciate Pain team evaluation. OK to continue the Lidocaine patch and heating pad for now. Cont PT daily. Consult pain management. HYPERTENSIVE URGENCY 2/2 medication noncompliance. Has improved on home meds. Asymptomatic at this time. Cont current antihypertensives including Coreg, Lasix, Lisinopril, and aldactone. Cont to monitor. Cardiology agrees with continuation of prehospital medications and TTE was performed revealing normal EF, no wall motion abnormalities and LVH. ELEVATED TROPONIN - h/o nonobstructive CAD, asymptomatic, likely related to hypertensive urgency. Peaked and trended down. Echo as above, no concerns for ACS. Cont BB, ASA, Statin. Appreciate Cardiology evaluation of this patient. PAF: paced rhythm, cont Amio, Elliquis, BB. Dyslipidemia: lipids appear controlled except slight elevation of triglycerides. Uncertain if total compliance, cont fenofibrate and statin. Diastolic CHF -chronic, compensated. -Last echo with preserved EF, diastolic dysfunction grade 2, now Grade I. -appears euvolemic -continue Lasix, Aldactone DM2 -A1c 7.7 -Hold po diabetic agents -SSI coverage --sugars are at goal -glycemic pharmacist requested for assistance -BSG AC HS BPH -continue Hytrin DVT PROPHYLAXIS: Eliquis CODE STATUS: FULL CODE DO Ronal Medeirosupper [facility] Hospitalist Consultants: Cards., Pain Current Inpatient Medications: Current Inpatient Medications Medications (Trade) Dose Ordered Sig/Juliette Route Start Time Stop Time Status Last Admin Dose Admin Ondansetron HCl (Zofran Inj) 4 mg Q6H PRN IV 06/21/16 13:15 07/21/16 13:14 Nitroglycerin (Nitrostat Tab) 0.4 mg UD PRN SL 06/21/16 13:15 07/21/16 13:14 Lidocaine (Lidoderm Patch 5%) 1 patch QAM TD 06/21/16 13:15 07/21/16 13:14 06/24/16 08:10 1 PATCH Miscellaneous (Remove Lidoderm Patch) 1 ea DAILY@21 N/A 06/21/16 21:00 07/21/16 20:59 06/23/16 20:59 1 EA Insulin Aspart (novoLOG ASPART) SLIDING SCALE If C... ACHS SC 06/21/16 16:15 07/21/16 16:14 12/30/16 11:53 7 UNITS Glucose (Glucose 40% Gel) 15-30 GRAMS 15 GRAMS... UD PRN PO 06/21/16 13:15 07/21/16 13:14 Glucose (Glucose Chew Tab) 4-8 Tablets 4 Tabl... UD PRN PO 06/21/16 13:15 07/21/16 13:14 Dextrose (Dextrose 50% 50ML Syringe) 25-50ML OF 50% DW IV FOR... UD PRN IV 06/21/16 13:15 07/21/16 13:14 Glucagon (Glucagon Inj) 1 mg UD PRN SQ 06/21/16 13:15 07/21/16 13:14 Amiodarone HCl (Cordarone Tab) 200 mg DAILY PO 06/22/16 09:00 07/22/16 08:59 06/24/16 10:00 200 MG Aspirin (Ecotrin Tab) 81 mg QAM PO 06/22/16 09:00 07/22/16 08:59 06/24/16 08:08 81 MG Carvedilol (Coreg Tab) 37.5 mg BIDM PO 06/21/16 16:45 07/21/16 17:59 06/24/16 08:09 37.5 MG Cholecalciferol (Vitamin D Tab) 1,000 inter.unit DAILY PO 06/22/16 09:00 07/22/16 08:59 06/24/16 08:09 1,000 INTER.UNIT Fenofibrate (Tricor Tab) 145 mg DAILY PO 06/22/16 09:00 07/22/16 08:59 06/24/16 08:09 145 MG Furosemide (Lasix tab) 40 mg DAILY PO 06/22/16 09:00 07/22/16 08:59 06/24/16 10:17 40 MG Lisinopril (Zestril Tab) 20 mg BID PO 06/21/16 21:00 07/21/16 20:59 06/24/16 08:10 20 MG Magnesium Oxide (Mag-Ox Tab) 400 mg DAILY PO 06/22/16 09:00 07/22/16 08:59 06/24/16 08:09 400 MG Potassium Chloride (Klor-Con M10) 20 meq DAILY PO 06/22/16 09:00 07/22/16 08:59 06/24/16 08:06 20 MEQ Rosuvastatin Calcium (Crestor Tab) 20 mg HS PO 06/21/16 21:00 07/21/16 20:59 06/23/16 21:00 20 MG Spironolactone (Aldactone Tab) 12.5 mg DAILY PO 06/22/16 09:00 07/22/16 08:59 06/24/16 08:11 12.5 MG Terazosin HCl (Hytrin Cap) 5 mg HS PO 06/21/16 21:00 07/21/16 20:59 06/23/16 21:00 5 MG Apixaban (Eliquis Tab) 5 mg BID PO 06/21/16 21:00 07/21/16 20:59 06/24/16 08:08 5 MG Miscellaneous (Iv Fluids Completed) 1 ea PRN PRN N/A 06/21/16 14:30 06/21/17 14:29 Acetaminophen (Tylenol Tab) 650 mg Q6 PO 06/22/16 18:00 06/24/16 16:04 06/24/16 11:55 650 MG Miscellaneous Information (Consult Glycemic Management Pharmacy) 1 ea UD N/A 06/23/16 14:22 07/23/16 14:21 Acetaminophen/ Hydrocodone Bitart ([place] 5/325 Tab) 1 tab Q4H PRN PO 06/24/16 09:45 07/08/16 09:44 06/24/16 14:11 1 TAB Gabapentin (Neurontin Cap) 100 mg TID PO 06/24/16 14:00 07/24/16 13:59 06/24/16 10:17 100 MG
[2016-06-25 08:00] VITALS: O2SAT 97
[2016-06-25] MEDS: INSULIN ASPART 100 UNITS/ML 3 ML PEN SC SCH ×4 (08:33→20:26)
--- NOTE | 2016-06-25 13:05 | Pharmacy Progress Note ---
Glycemic: Assessment & Plan Date of Service Jun 25, 2016. Assessment & Plan 06/22/16: The patient received 14 units of insulin. 06/23/16: The patient received 12 units of insulin. 06/24/16: The patient received 20 units of insulin. PLAN: Will slightly tighten ordered CF/CR to approach target BSG range. * Basal insulin: Not needed at this time * Correctional Insulin: Novolog Correction per scale ACHS Goal Range: Low 100 mg/dL - High 140 mg/dL Correction Factor: 25 mg/dL/unit * Prandial insulin: Per carb ratio of 1 unit per 9 grams CHO consumed Pharmacy will continue to monitor patient daily and write orders per [facility] inpatient glycemic control protocol. Thanks. * Please note that the plan above was derived based on current level of insulin resistance and hospital stress. These recommendations are appropriate for inpatient admission only. Plan of care upon discharge will need to be reassessed to avoid potential outpatient hypo/hyperglycemia.
[2016-06-25] MEDS: GABAPENTIN 300 MG CAP PO SCH ×2 (13:09→20:23)
[2016-06-25] MEDS: MoRPHine SULFATE 2 MG/ML CARP IV PRN ×2 (13:11→17:20)
[2016-06-25 16:00] VITALS: BP 164/92; PULSE 61; TEMP 36.8; O2SAT 96
[2016-06-25] MEDS: ROSUVASTATIN CALCIUM 20 MG TAB PO SCH (20:23)
--- NOTE | 2016-06-25 21:03 | Progress Note ---
Medicine Progress Note Date & Time of Visit: Jun 25, 2016 at 11:37. Subjective Complaints of pain overnight on gabapentin 100 TID, [place] somewhat helpful Denies other issues Ambulatory but carefully States he doesn't feel quite ready to go home yet Objective Last 8 Hrs Date Time Temp Pulse Resp B/P Pulse Ox O2 Delivery O2 Flow Rate FiO2 06/25/16 08:00 97 Room Air 06/25/16 07:37 37.2 65 20 146/87 97 Physical Exam: GEN: Obese, in no acute distress, alert and appropriate, sitting in chair HEENT: NC/AT, normal sclerae CARDIO: reg rate, S1/2 heard without m/g/r LUNGS: CTA bilaterally, no crackles, rales or wheezes, good diaphragmatic excursion ABD: protuberant, Soft, not distended or tender EXTREMITY: warm and well-perfused NEURO: CN 2-12 grossly intact, sensation intact throughout lower extremities, SLR- bilaterally MUSC: no focal deficits in LEs SKIN: warm and dry Laboratory Results: Last 24 Hours Test 06/24/16 15:55 06/24/16 20:30 06/25/16 07:41 06/25/16 11:16 Bedside Glucose 180 mg/dl 147 mg/dl 158 mg/dl 200 mg/dl Assessment & Plan 71 year old male presents to the ED complaining of back pain since putting up his Ruth tree one week ago - pain similar to other episodes LOW BACK PAIN -likely MSK in nature; Cannot have MRI because of pacemaker. He has not tried conservative therapies as outpatient for this long-standing pain, including no narcotics. Denies PT, Tramadol, Narcotics or other medications aside from Tylenol. Possible underlying spinal stenosis 2/2 description given with flexion improving the pain and extension worsening it. No neuro deficits on exam and no reports of loss of bowel or bladder function. L spine xray is negative for fracture or acute misalignment. SLR is negative bilaterally. -Pain Management saw him and CT L-spine revealed some DDD--he was placed on Gabapentin 100 TID and low dose narcotic for breakthrough with option for outpatient spinal injections-very much appreciate Pain team evaluation. OK to continue the Lidocaine patch and heating pad for now. Cont PT daily. -Increased gabapentin to 300mg TID with [place] for breakthrough HYPERTENSION. Has improved on home meds. Asymptomatic at this time. Cont current antihypertensives including Coreg, Lasix, Lisinopril, and aldactone. Cont to monitor. Cardiology agrees with continuation of prehospital medications and TTE was performed revealing normal EF, no wall motion abnormalities and LVH. ELEVATED TROPONIN - h/o nonobstructive CAD, asymptomatic, likely related to hypertensive urgency. Peaked and trended down. Echo as above, no concerns for ACS. Cont BB, ASA, Statin. Appreciate Cardiology evaluation of this patient. PAF: paced rhythm, cont Amio, Elliquis, BB. Dyslipidemia: lipids appear controlled except slight elevation of triglycerides. Uncertain if total compliance, cont fenofibrate and statin. Diastolic CHF -chronic, compensated. -Last echo with preserved EF, diastolic dysfunction grade 2, now Grade I. -appears euvolemic -continue Lasix, Aldactone DM2 -A1c 7.7 -Hold po diabetic agents -SSI coverage --sugars are at goal -glycemic pharmacist requested for assistance -BSG AC HS BPH -continue Hytrin DVT PROPHYLAXIS: Eliquis CODE STATUS: FULL CODE [facility] Consultants: Cards., Pain Current Inpatient Medications: Current Inpatient Medications Medications (Trade) Dose Ordered Sig/Juliette Route Start Time Stop Time Status Last Admin Dose Admin Ondansetron HCl (Zofran Inj) 4 mg Q6H PRN IV 06/21/16 13:15 07/21/16 13:14 Nitroglycerin (Nitrostat Tab) 0.4 mg UD PRN SL 06/21/16 13:15 07/21/16 13:14 Lidocaine (Lidoderm Patch 5%) 1 patch QAM TD 06/21/16 13:15 07/21/16 13:14 06/25/16 07:47 1 PATCH Miscellaneous (Remove Lidoderm Patch) 1 ea DAILY@21 N/A 06/21/16 21:00 07/21/16 20:59 06/24/16 21:18 1 EA Insulin Aspart (novoLOG ASPART) SLIDING SCALE If C... ACHS SC 06/21/16 16:15 07/21/16 16:14 06/25/16 08:33 6 UNITS Glucose (Glucose 40% Gel) 15-30 GRAMS 15 GRAMS... UD PRN PO 06/21/16 13:15 07/21/16 13:14 Glucose (Glucose Chew Tab) 4-8 Tablets 4 Tabl... UD PRN PO 06/21/16 13:15 07/21/16 13:14 Dextrose (Dextrose 50% 50ML Syringe) 25-50ML OF 50% DW IV FOR... UD PRN IV 06/21/16 13:15 07/21/16 13:14 Glucagon (Glucagon Inj) 1 mg UD PRN SQ 06/21/16 13:15 07/21/16 13:14 Amiodarone HCl (Cordarone Tab) 200 mg DAILY PO 06/22/16 09:00 07/22/16 08:59 06/25/16 07:46 200 MG Aspirin (Ecotrin Tab) 81 mg QAM PO 06/22/16 09:00 07/22/16 08:59 06/25/16 07:45 81 MG Carvedilol (Coreg Tab) 37.5 mg BIDM PO 06/21/16 16:45 07/21/16 17:59 06/25/16 07:45 37.5 MG Cholecalciferol (Vitamin D Tab) 1,000 inter.unit DAILY PO 06/22/16 09:00 07/22/16 08:59 06/25/16 07:45 1,000 INTER.UNIT Fenofibrate (Tricor Tab) 145 mg DAILY PO 06/22/16 09:00 07/22/16 08:59 06/25/16 07:45 145 MG Furosemide (Lasix tab) 40 mg DAILY PO 06/22/16 09:00 07/22/16 08:59 06/25/16 07:46 40 MG Lisinopril (Zestril Tab) 20 mg BID PO 06/21/16 21:00 07/21/16 20:59 06/25/16 07:45 20 MG Magnesium Oxide (Mag-Ox Tab) 400 mg DAILY PO 06/22/16 09:00 07/22/16 08:59 06/25/16 07:46 400 MG Potassium Chloride (Klor-Con M10) 20 meq DAILY PO 06/22/16 09:00 07/22/16 08:59 06/25/16 07:46 20 MEQ Rosuvastatin Calcium (Crestor Tab) 20 mg HS PO 06/21/16 21:00 07/21/16 20:59 06/24/16 21:20 20 MG Spironolactone (Aldactone Tab) 12.5 mg DAILY PO 06/22/16 09:00 07/22/16 08:59 06/25/16 07:46 12.5 MG Terazosin HCl (Hytrin Cap) 5 mg HS PO 06/21/16 21:00 07/21/16 20:59 06/24/16 21:20 5 MG Apixaban (Eliquis Tab) 5 mg BID PO 06/21/16 21:00 07/21/16 20:59 06/25/16 07:46 5 MG Miscellaneous (Iv Fluids Completed) 1 ea PRN PRN N/A 06/21/16 14:30 06/21/17 14:29 Miscellaneous Information (Consult Glycemic Management Pharmacy) 1 ea UD N/A 06/23/16 14:22 07/23/16 14:21 Hydromorphone HCl (Dilaudid Inj) 0.5 mg Q6H PRN IV 06/25/16 02:30 07/09/16 02:29 Acetaminophen/ Hydrocodone Bitart ([place] 5/325 Tab) `1-2 tabs for pain 1 tab ... Q4H PRN PO 06/25/16 12:00 07/09/16 11:59 Gabapentin (Neurontin Cap) 300 mg TID PO 06/25/16 14:00 07/25/16 13:59 UNV
[2016-06-25 23:27] VITALS: BP 161/93; PULSE 63; TEMP 36.6; O2SAT 92
[2016-06-26] MEDS: HYDROCODONE/ACETAMOPHEN 5/325MG TAB PO PRN ×3 (04:12→16:08)
[2016-06-26 07:54] VITALS: BP 173/90; PULSE 64; TEMP 36.5; O2SAT 92
[2016-06-26 08:00] VITALS: O2SAT 92
[2016-06-26] MEDS: AMIODARONE 200 MG TAB PO SCH (08:04)
[2016-06-26] MEDS: CARVEDILOL 12.5 MG TAB PO SCH ×2 (08:05→16:08)
[2016-06-26] MEDS: ASPIRIN 81 MG ECTAB PO SCH (08:05)
[2016-06-26] MEDS: FENOFIBRATE 145 MG TAB PO SCH (08:05)
[2016-06-26] MEDS: LISINOPRIL 20 MG TAB PO SCH (08:05)
[2016-06-26] MEDS: MAGNESIUM OXIDE 400 MG TAB PO SCH (08:05)
[2016-06-26] MEDS: APIXABAN 2.5 MG TAB PO SCH (08:05)
[2016-06-26] MEDS: GABAPENTIN 300 MG CAP PO SCH ×2 (08:05→12:57)
[2016-06-26] MEDS: FUROSEMIDE 40 MG TAB PO SCH (08:05)
[2016-06-26] MEDS: CHOLECALCIFEROL 1000 INTER.UNIT TAB PO SCH (08:06)
[2016-06-26] MEDS: POTASSIUM CHLORIDE 10 MEQ TABCR PO SCH (08:06)
[2016-06-26] MEDS: SPIRONOLACTONE 25 MG TAB PO SCH (08:06)
[2016-06-26] MEDS: LIDODERM (LIDOCAINE) PATCH 5% TD SCH (08:07)
[2016-06-26] MEDS: INSULIN ASPART 100 UNITS/ML 3 ML PEN SC SCH ×2 (09:06→12:21)
--- NOTE | 2016-06-26 09:34 | Pharmacy Progress Note ---
Glycemic: Assessment & Plan Date of Service Jun 26, 2016. Assessment & Plan Item Value Date Time Bedside Glucose 200 mg/dl H 06/25/16 1116 Bedside Glucose 158 mg/dl H 06/25/16 0741 Bedside Glucose 147 mg/dl H 06/24/16 2030 Bedside Glucose 180 mg/dl H 06/24/16 1555 Bedside Glucose 166 mg/dl H 06/24/16 1049 Bedside Glucose 164 mg/dl H 06/24/16 0619 Bedside Glucose 165 mg/dl H 06/26/16 0742 Bedside Glucose 166 mg/dl H 06/25/16 2000 Bedside Glucose 159 mg/dl H 06/25/16 1623 06/22/16: The patient received 14 units of insulin. 06/23/16: The patient received 12 units of insulin. 06/24/16: The patient received 20 units of insulin. 06/25/16: The patient received 26 units of insulin. * Basal insulin: Not needed at this time, may reconsider depending on fasting BSGs trending up? * Correctional Insulin: Novolog Correction per scale ACHS Goal Range: Low 100 mg/dL - High 140 mg/dL Correction Factor: 25 mg/dL/unit * Prandial insulin: Per carb ratio of 1 unit per 9 grams CHO consumed Pharmacy will continue to monitor patient daily and write orders per [facility] inpatient glycemic control protocol. Thanks. * Please note that the plan above was derived based on current level of insulin resistance and hospital stress. These recommendations are appropriate for inpatient admission only. Plan of care upon discharge will need to be reassessed to avoid potential outpatient hypo/hyperglycemia.
[2016-06-26 10:00] VITALS: BP 134/77; PULSE 76
[2016-06-26] MEDS: MoRPHine SULFATE 2 MG/ML CARP IV PRN (10:16)
[2016-06-26 15:24] VITALS: BP 133/85; PULSE 62; TEMP 36.5; O2SAT 92
[2016-06-26] MEDS ORDERED: LDDP5 TD ×2 (15:36→15:45)
[2016-06-26] MEDS ORDERED: HYDR-5688 PO ×2 (15:36→15:43)
[2016-06-26] MEDS ORDERED: NRN300 PO ×2 (15:36→15:45)
[2016-06-26 15:50] VITALS: BP 133/85; PULSE 62; TEMP 36.5; O2SAT 92
--- NOTE | 2016-06-26 15:55 | Discharge Instructions ---
Discharge Instructions Admission Reason for Admission: Back Pain; Elevated Troponin Discharge Discharge Diagnosis / Problem: Back pain, HTN Discharge Goals Goal(s): Prevent Disease Progression Activity Recommendations Activity Limitations: resume your previous activity . Instructions / Follow-Up Instructions / Follow-Up Please take all medications as instructed. Although we discussed using Valium PRN for breakthrough pain initially, I would use the [place] as needed first and then the Tramadol that you are already taking at home. It is safe to use Tylenol, also, just realize that [place] has Tylenol in it and you cannot exceed more than 3000mg in 24 hours from all sources of Tylenol. Never mix alcohol with [place] or Tramadol and try to separate taking these medications by at least two hours time if you are taking both in the same day. Your pain regimen currently looks like this: Gabapentin 300mg three times daily [place] 5/325mg, take 1-2 tabs every 6 hours only as needed for breakthrough pain Lidocaine patch, apply daily up to 12 hours as needed for back pain You have a followup appointment with Dr. Barone scheduled next week for follow- up from this hospitalization. Your appointment is on 06/29/16 @ 2:50pm. Please bring all paperwork with you. I would also take your blood pressure at home, write down the readings, and bring this along to the appointment, also. You were seen by Pain Management in the hospital who is considering further treatment options on you as an outpatient. You will need an outpatient referral to see them, to be provided by your PCP. It was a pleasure taking care of you! Call if you have any questions or problems. You can reach a [facility] hospitalist on duty at [facility] 24 hours a day by calling [phone]. Take care of yourself. Bhargavi Miranda, [facility] Hospitalist Current Hospital Diet Patient's current hospital diet: AHA Diet (Heart Healthy), Diabetes Type 2 Diet Discharge Diet Recommended Diet: AHA Diet (Heart Healthy), Diabetes Type 2 Diet Procedures Procedures Performed: TTE-06/23 Pending Studies Studies pending at discharge: no Laboratory Results Hemoglobin A1c Test 06/22/16 07:28 Range/Units Estimated Average Glucose 174 mg/dl Hemoglobin A1c 7.7 H 4.5-5.6 % Lipid Panel Test 06/22/16 07:22 Range/Units Triglycerides Level 219 H 0-150 mg/dl Cholesterol Level 201 H 0-200 mg/dl HDL Cholesterol 33 mg/dl Cholesterol/HDL Ratio 6.1 LDL Cholesterol, Calculated 124 mg/dl Medical Emergencies . Who to Call and When: Medical Emergencies: If at any time you feel your situation is an emergency, please call 911 immediately. . Non-Emergent Contact Non-Emergency issues call your: Primary Care Provider . . "Provider Documentation" section prepared by Bhargavi Miranda. VTE Core Measure Inpt VTE Proph given/why not?: Other Anticoagulation (Elliquis)
--- NOTE | 2016-06-29 15:11 | Discharge Summary ---
Discharge Summary Admission Date: Jun 21, 2016 at 13:09 Discharge Date: Jun 26, 2016 Discharge Disposition: Home with services Principal Diagnosis: Lower back pain 2/2 spinal stenosis Hypertroponemia 2/2 demand ischemia 2/2 hypertensive heart disease Hypertensive urgency-resolved Procedures: Echocardiogram Vaccinations: Flu 06/24 Consultations: Cards., Pain Medication Reconciliation New Medications: Gabapentin (Gabapentin) 300 Mg Cap 300 MG PO TID for 30 Days, #90 CAP Hydrocodone/Acetaminophen 5MG/325MG ([place] 5MG/325MG) Tab 1-2 TAB PO Q4H PRN for Pain for 10 Days, #20 TAB PRN PAIN Lidocaine (Lidocaine) 1 Patch Tdsy 1 PATCH TD QAM for 30 Days, #30 PATCH 1 Refill Apply up to three patches in 24 hours. Remove after 12 hours. Continued Medications: Amiodarone Hcl (Cordarone) 200 Mg Tab 200 MG PO DAILY, TAB Apixaban (Eliquis) 5 Mg Tab 5 MG PO BID Aspirin (Aspirin Ec) 81 Mg Tab 81 MG PO QAM Carvedilol (Coreg) 25 Mg Tab 37.5 MG PO BIDM, TAB Cholecalciferol (Vitamin D) 1,000 Inter.unit Tab 1000 INTER.UNIT PO DAILY, TAB Fenofibrate (Tricor) 145 Mg Tab 145 MG PO DAILY, TAB Furosemide (Lasix) 40 Mg Tab 40 MG PO DAILY, TAB Lisinopril (Prinivil) 20 Mg Tab 20 MG PO BID, TAB Magnesium Oxide (Mag-Ox) 400 Mg Tab 400 MG PO DAILY, TAB Metformin Hcl (Glucophage) 1,000 Mg Tab 1000 MG PO BIDM, TAB Nitroglycerin (Nitrostat) 0.4 Mg Sub 0.4 MG UT UD PRN for Chest Pain, BTL Place 0.4 mg under tongue every 5 minutes as needed for chest pain. Up to 3 doses in 15 minutes. Potassium Chloride (Micro-K Ext Rel) 10 Meq Cap 20 MEQ PO DAILY, CAP Rosuvastatin Calcium (Crestor) 20 Mg Tab 20 MG PO HS, TAB Spironolactone (Aldactone) 25 Mg Tab 12.5 MG PO DAILY, TAB Terazosin (Hytrin) 5 Mg Cap 5 MG PO HS, CAP Tramadol Hcl (Ultram) 50 Mg Tab 50 MG PO Q6H PRN for Pain, TAB PRN PAIN Admission Information HPI (per Admitting provider): Patient seen and examined. 71 year old male with PMHx of PAF s/p pacemaker on Eliquis, nonobstructing CAD, DM2, HTN and other problems listed below presents to the ED complaining of back pain x 1 week. Patient reports he has low back pain that radiates down the right leg. He describes the pain as sharp and rates it as a 10/10. The pain started when he was putting up the Ruth tree. He says he has had this pain multiple times in the past and was told he has arthritis. He states it usually goes away in 3-4 days. He reports he hasn't been taking his medications as prescribed the last several days either. He denies fevers, chills, URI symptoms, chest pain, SOB, palpitations, nausea, vomiting, diarrhea, dysuria, incontinence, saddle anesthesia, calf pain, edema, falls, injuries. In the ED BP is significantly elevated >240 systolically, troponin is slightly bumped at 0.128. EKG is nonischemic, L-spine X-ray is without acute abnormality. He received his home BP meds, morphine and nitropaste and is resting comfortably. He will be observed for further workup and treatment. Physical Exam (per Admitting): General Appearance: + pertinent finding (Pleasant WD/WN 71 year old male lying in bed in NAD ) Head: normocephalic, atraumatic Eyes: EOMI, sclerae normal ENT: hearing grossly normal, pharynx normal Neck: supple, no JVD, trachea midline Respiratory/Chest: chest non-tender, lungs clear, normal breath sounds, no respiratory distress, no accessory muscle use Cardiovascular: regular rate, rhythm, no gallop, no JVD, no murmur, normal peripheral pulses Abdomen/GI: normal bowel sounds, non tender, soft Back: + pertinent finding (tenderness to palpation right SI, no rashes, bruising, muscle spasms noted ) Extremities/Musculoskelatal: no calf tenderness, normal capillary refill, + pedal edema (trace ) Neurologic/Psych: alert, oriented x 3, + pertinent finding (no motor or sensory deficits noted on gross exam ) Skin: normal color, warm/dry, no rash Lymphatic: no adenopathy Hospital Course 71 yoM presented to the ER with worsening lower back pain for the past week. He reported fdc back pain but had not tried many conservative efforts other than Tylenol at home. In the ER BP was 254/123, P 90 T 37 C and he was 92% on room air. His BP was treated with taking his PM home meds including Lisinopril 20mg and Coreg 37.5mg. His BP came down to 196/108 in two hours and contined to come down into the normal range with time. Physical exam revealed a diaphoretic man with Right SI joint tenderness, no midline tenderness to the lumbosacral spine and a positive straight leg raise on the right side. There were no focal neuro deficits noted. An L-spine xray (5 view ) was performed revealing no acute bony abnormalities, osteopenia and lumbosacral spodylosis. WBC was 12, H/H 17/50 and PLT 197. K was 3.4 and random glucose was 200 but BMP was otherwise normal. UA was negative for protein, and troponin was mildly elevated at 0.8. In the ER, he was treated with Morphine, Zofran, Nitro paste however, his pain was not improved and he was still hypertensive, so he was admitted to telemetry for further workup and treatment. With his cardiac history, Cardiology was consulted to see the patient. His elevated troponin was though to be in a pattern consistent with hypertensive urgency and demand rather than acute ischemic syndrome or coronary syndrome. A TSH was checked and was normal. An TTE was ordered the following day and revealed No significant change compared to previous study of 10/07/15 with normal LV size and function, moderate concentric LVH, EF 60-65% and no wall motion abnormalities noted. By HD2 BP was controlled, however, his back pain was not. Initially he was tried on Valium and Tylenol, both scheduled every 8 hours with some relief. However, Pain Management was consulted and recommended gabapentin 100mg TID with [place] for breakthrough pain. By the next day he was back in pain again, however, symptoms greatly improved with increase of the gabapentin to 300mg PO TID. A lidocaine patch was also helpful and provided at discharge. As he had a pacemaker, an MRI could not be performed so a CT L-spine was done and showed prominent osteophytes, mild to moderate spinal stenosis and some disc bulging at L4-5. No fractures or traumatic subluxations were identified. Spinal stenosis was noted at the L2-3 through the L5-S1 levels. Physical therapy also evaluated him while in the hospital. They found that he was functional enough to return home safely but recommended outpatient PT. Home Health for PT was ordered at discharge. Total he spent 6 days in the hospital. By day of discharge he was functional with greatly improved pain in his back, no SLR on exam, no neuro deficits in the lower extremities on exam, he was ambulatory, and his BP was 133/85. He was sent home in stable condition with for PT and close follow-up with PCP. Recommend continuing outpatient PT for 4-6 weeks and following up with Pain Management for consideration of spinal injections as an outpatient. Total time spent on discharge = 60 minutes This includes examination of the patient, discharge planning, medication reconciliation, and communication with other providers. Discharge Instructions Discharge Instructions Admission Reason for Admission: Back Pain; Elevated Troponin Discharge Discharge Diagnosis / Problem: Back pain, HTN Discharge Goals Goal(s): Prevent Disease Progression Activity Recommendations Activity Limitations: resume your previous activity . Instructions / Follow-Up Instructions / Follow-Up Please take all medications as instructed. Although we discussed using Valium PRN for breakthrough pain initially, I would use the [place] as needed first and then the Tramadol that you are already taking at home. It is safe to use Tylenol, also, just realize that [place] has Tylenol in it and you cannot exceed more than 3000mg in 24 hours from all sources of Tylenol. Never mix alcohol with [place] or Tramadol and try to separate taking these medications by at least two hours time if you are taking both in the same day. Your pain regimen currently looks like this: Gabapentin 300mg three times daily [place] 5/325mg, take 1-2 tabs every 6 hours only as needed for breakthrough pain Lidocaine patch, apply daily up to 12 hours as needed for back pain You have a followup appointment with Dr. Barone scheduled next week for follow- up from this hospitalization. Your appointment is on 06/29/16 @ 2:50pm. Please bring all paperwork with you. I would also take your blood pressure at home, write down the readings, and bring this along to the appointment, also. You were seen by Pain Management in the hospital who is considering further treatment options on you as an outpatient. You will need an outpatient referral to see them, to be provided by your PCP. It was a pleasure taking care of you! Call if you have any questions or problems. You can reach a [facility] hospitalist on duty at [facility] 24 hours a day by calling [phone]. Take care of yourself. DO [facility] Current Hospital Diet Patient's current hospital diet: AHA Diet (Heart Healthy), Diabetes Type 2 Diet Discharge Diet Recommended Diet: AHA Diet (Heart Healthy), Diabetes Type 2 Diet Procedures Procedures Performed: TTE-06/23 Pending Studies Studies pending at discharge: no Laboratory Results Hemoglobin A1c Test 06/22/16 07:28 Range/Units Estimated Average Glucose 174 mg/dl Hemoglobin A1c 7.7 H 4.5-5.6 % Lipid Panel Test 06/22/16 07:22 Range/Units Triglycerides Level 219 H 0-150 mg/dl Cholesterol Level 201 H 0-200 mg/dl HDL Cholesterol 33 mg/dl Cholesterol/HDL Ratio 6.1 LDL Cholesterol, Calculated 124 mg/dl Medical Emergencies . Who to Call and When: Medical Emergencies: If at any time you feel your situation is an emergency, please call 911 immediately. . Non-Emergent Contact Non-Emergency issues call your: Primary Care Provider . . "Provider Documentation" section prepared by Bhargavi Miranda. VTE Core Measure Inpt VTE Proph given/why not?: Other Anticoagulation (Elliquis) <Electronically signed by Bhargavi Miranda DO> Signed: 06/26/16 1555 Signed: The status of this report is Signed Additional Copies To Tadeo Barone M.D.
[2017-02-22] MEDS ORDERED: HYDR-5688 PO (13:15)
[2017-02-22] MEDS ORDERED: TRAM-453 PO (13:15)
[2017-02-22] MEDS ORDERED: NRN300 PO (13:15)
[2017-04-18] MEDS ORDERED: TRAM-10 PO (09:15)
[2017-04-18] MEDS ORDERED: GABA1CAP5 PO (09:15)
== END 2016-06-26 16:30 | disposition home or self-care (01) ==
LOC: ENRESERVDT → ENRESERVTM → EDBD 10:03 → C.EDC 10:06 → C.2E 13:09 → C.2T 06-22 06:12 → C.MS2W 06-24 15:48
PROVIDERS: ADMIT Internal Medicine; ATTEND Hospitalist
DX: M54.5 Low back pain (principal); M48.06 Spinal stenosis, lumbar region; I13.0 Hypertensive heart and chronic kidney disease with heart failure and stage 1 through stage 4 chronic kidney disease, or unspecified chronic kidney disease; G47.33 Obstructive sleep apnea (adult) (pediatric); I25.10 Atherosclerotic heart disease of native coronary artery without angina pectoris; N18.3 Chronic kidney disease, stage 3 (moderate); E78.5 Hyperlipidemia, unspecified; E66.9 Obesity, unspecified; I48.0 Paroxysmal atrial fibrillation; Z95.1 Presence of aortocoronary bypass graft; I50.32 Chronic diastolic (congestive) heart failure; E11.9 Type 2 diabetes mellitus without complications; N40.0 Benign prostatic hyperplasia without lower urinary tract symptoms; Z79.82 Long term (current) use of aspirin; Z79.899 Other long term (current) drug therapy; Z95.0 Presence of cardiac pacemaker; Z91.19 Patient's noncompliance with other medical treatment and regimen

== ENCOUNTER 2016-09-13 17:43 | Inpatient (IN) | payer OTHER ==
[~2016-09-13] VITALS: Ht 160 cm; Wt 99.1 kg
[~2016-09-13 17:43] MED LIST changes: +HYDR-5688 PO; +LDDP5 TD; +NRN300 PO; +TRAM-453 PO
[2016-09-13] MEDS ORDERED: HydrALAZINE HCL 20 MG/ML VIAL IV STA ×2 (18:28→19:51)
[2016-09-13 18:45] LABS: BASO % 0.4 %; BASO ABS # 0.03 K/uL (0-0.2); COMPLETE YES; EOS % 1.2 %; HEMATOCRIT 44.4 % (42-52); IG% 0.8 %; LYMPH % 26.5 %; LYMPH ABS # 2.05 K/uL (1.2-3.4); MEAN CELL VOLUME 92.1 fL (80-100); MEAN CORPUSCULAR HEMOGLOBIN 31.5 pg (25-34); MEAN CORPUSCULAR HGB CONC 34.2 g/dl (32-36); MEAN PLATELET VOLUME 10.6 fL (7.4-10.4); NEUT % 63.1 %; PLATELET COUNT 168 K/uL (130-400); RED BLOOD COUNT 4.82 M/uL (4.7-6.1); WHITE BLOOD COUNT 7.74 K/uL (4.8-10.8)
--- NOTE | 2016-09-13 18:49 | EMERGENCY ROOM VISIT NOTE ---
History Report prepared by [place]: Izzy Saavedra Under the Supervision of: Dr. Jb Snow M.D. First contact with patient: 18:23 Chief Complaint: BILATERAL LEG WEAKNESS Stated Complaint: FALL, HYPERTENSION History of Present Illness The patient is a 71 year old male who presents to the Emergency Room with complaints of persistent bilateral lower extremity weakness starting about 2 days ago. The patient has a history of lower back pain radiating down to the right leg. For the past few days, he has been using a walker to ambulate. He has been having intermittent, severe right lower back pain for the past 2 days. His knees buckle when the back pain occurs. He has worsening pain when he tries to ambulate without assistance. He has been having bilateral lower extremity weakness which is new. The patient fell today when he had an episode of back pain and his knees buckled. The patient was unable to get up on his own. He has been taking [place] and Tramadol as prescribed by pain management without relief. He currently rates a pain intensity of 6/10. He denies fevers, chills, urinary symptoms, diarrhea, or any other complaints. He has a normal appetite and a normal fluid intake. The patient has a history of hypertension and A-Fib. He takes Eliquis and denies missing any doses. He has a pacemaker in place. Source of History: patient Onset: about 2 days ago Position: other (bilateral lower extremity) Quality: other (weakness) Timing: other (persistent) Associated Symptoms: + back pain, No chills, No diarrhea, No fevers, No urinary symptoms Review of Systems See HPI for pertinent positives & negatives. A total of 10 systems reviewed and were otherwise negative. 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 (19) Umbilical Hernia Surgical Problems: (1) H/O inguinal hernia repair (2) H/O palate surgery (3) H/O umbilical hernia repair (4) History of cataract surgery Family History Hypertension Kidney disease Stroke FATHER MOTHER Social History Smoking Status: Former Smoker Alcohol Use: none Drug Use: none Marital Status: Occupation Status: employed, retired Current/Historical Medications Scheduled Amiodarone Hcl (Cordarone), 200 MG PO BID Apixaban (Eliquis), 5 MG PO BID Aspirin (Aspirin Ec), 81 MG PO QAM Carvedilol (Coreg), 25 MG PO BIDM Cholecalciferol (Vitamin D), 1,000 UNIT PO QAM Fenofibrate (Tricor), 145 MG PO DAILY Gabapentin (Gabapentin), 300 MG PO TID Lisinopril (Prinivil), 20 MG PO BID Magnesium Oxide (Mag-Ox), 400 MG PO DAILY Metformin Hcl (Glucophage), 1,000 MG PO BIDM Potassium Chloride (Micro-K Ext Rel), 20 MEQ PO DAILY Rosuvastatin Calcium (Crestor), 20 MG PO HS Spironolactone (Aldactone), 12.5 MG PO DAILY Terazosin (Hytrin), 5 MG PO HS Scheduled PRN Acetaminophen (Tylenol), 1,000 MG PO Q8 PRN for Pain Furosemide (Lasix), 40 MG PO BID PRN for PRN Hydrocodone/Acetaminophen 5MG/325MG ([place] 5MG/325MG), 1-2 TAB PO Q4H PRN for Pain Lidocaine (Lidocaine), 1 PATCH TD UD PRN for Pain Nitroglycerin (Nitrostat), 0.4 MG UT UD PRN for Chest Pain Tramadol Hcl (Ultram), 50 MG PO Q6H PRN for Pain Allergies Coded Allergies: No Known Allergies (Unverified , 09/13/16) Physical Exam Vital Signs Date Time Temp Pulse Resp B/P Pulse Ox O2 Delivery O2 Flow Rate FiO2 09/13/16 22:34 78 09/13/16 21:57 66 18 185/95 96 Room Air 09/13/16 21:14 66 18 166/87 95 Room Air 09/13/16 20:56 66 18 201/108 95 Room Air 09/13/16 19:39 69 18 190/90 95 Room Air 09/13/16 18:36 63 09/13/16 18:06 36.8 64 20 193/118 95 Room Air Physical Exam GENERAL: Patient is in no acute distress. HEENT: No acute trauma, normocephalic atraumatic, mucous membranes moist, no nasal congestion, no scleral icterus. NECK: No stridor, no adenopathy, no meningismus, trachea is midline. LUNGS: Clear to auscultation bilaterally, no wheeze, no rhonchi, breath sounds equal. HEART: Without murmurs gallops or rubs, regular rate and rhythm. ABDOMEN: Soft, nontender, bowel sounds positive, no hernias, no peritonitis. EXTREMITIES: Mild bilateral pedal edema, full range of motion of all the joints without pain or difficulty, no signs for acute trauma. NEUROLOGIC: Oriented x 3, no acute motor or sensory deficits, no focal weakness. SKIN: No rash, no jaundice, no diaphoresis. Medical Decision & Procedures ER Provider Diagnostic Interpretation: CT results as stated below per my review and radiologist interpretation: LUMBAR SPINE CT CT DOSE: 1528.49 mGy.cm HISTORY: pain down legs and in back, weak TECHNIQUE: Multiaxial CT images of the lumbar spine were performed and reformatted in the sagittal and coronal plane without the use of contrast. COMPARISON: Lumbar spine CT 06/24/2016. FINDINGS: No fracture or subluxation. Severe disc space narrowing at L5-S1, unchanged. Mild disc space throughout remaining lumbar spine. The visualized retroperitoneal soft tissues are unremarkable. L1-2 level: There are prominent anterior and lateral osteophytes. No focal herniations are visualized. There is no significant spinal or foraminal stenosis L2-3 level: There is a circumferential disc bulge present. There is mild to moderate spinal stenosis. There is no significant foraminal narrowing L3-4 level: There is a circumferential disc bulge present. There is moderate spinal stenosis. There is no significant foraminal narrowing. L4-5 level: There is a circumferential disc bulge. There is moderate spinal stenosis. There is no significant foraminal narrowing L5-S1 level: There is a prominent disc osteophyte complex. There is moderate to severe secondary deformity of thecal sac. The disc osteophyte complexes asymmetric to the left. There is left-sided foraminal narrowing. IMPRESSION: 1. No significant change compared to the prior study. No fractures or traumatic subluxations identified 2. Multilevel spondylitic changes with spinal stenosis at the L2-3 through L5-S1 levels as described above. Electronically signed by: Isreal Nagy M.D. 09/13/2016 7:16 PM Dictated Date/Time: 09/13/2016 7:11 PM Laboratory Results 09/13/16 17:00 Red Blood Count 4.82, Mean Corpuscular Volume 92.1, Mean Corpuscular Hemoglobin 31.5, Mean Corpuscular Hemoglobin Concent 34.2, Mean Platelet Volume 10.6, Neutrophils (%) (Auto) 63.1, Lymphocytes (%) (Auto) 26.5, Monocytes (%) (Auto) 8.0, Eosinophils (%) (Auto) 1.2, Basophils (%) (Auto) 0.4, Neutrophils # (Auto) 4.89, Lymphocytes # (Auto) 2.05, Monocytes # (Auto) 0.62, Eosinophils # (Auto) 0.09, Basophils # (Auto) 0.03 09/13/16 17:00 Test 09/13/16 17:00 09/13/16 20:40 White Blood Count 7.74 K/uL (4.8-10.8) Red Blood Count 4.82 M/uL (4.7-6.1) Hemoglobin 15.2 g/dL (14.0-18.0) Hematocrit 44.4 % (42-52) Mean Corpuscular Volume 92.1 fL (80-100) Mean Corpuscular Hemoglobin 31.5 pg (25-34) Mean Corpuscular Hemoglobin Concent 34.2 g/dl (32-36) Platelet Count 168 K/uL (130-400) Mean Platelet Volume 10.6 fL (7.4-10.4) Neutrophils (%) (Auto) 63.1 % Lymphocytes (%) (Auto) 26.5 % Monocytes (%) (Auto) 8.0 % Eosinophils (%) (Auto) 1.2 % Basophils (%) (Auto) 0.4 % Neutrophils # (Auto) 4.89 K/uL (1.4-6.5) Lymphocytes # (Auto) 2.05 K/uL (1.2-3.4) Monocytes # (Auto) 0.62 K/uL (0.11-0.59) Eosinophils # (Auto) 0.09 K/uL (0-0.5) Basophils # (Auto) 0.03 K/uL (0-0.2) RDW Standard Deviation 48.6 fL (36.4-46.3) RDW Coefficient of Variation 14.4 % (11.5-14.5) Immature Granulocyte % (Auto) 0.8 % Immature Granulocyte # (Auto) 0.06 K/uL (0.00-0.02) Prothrombin Time 12.1 SECONDS (9.0-12.0) Prothromb Time International Ratio 1.1 (0.9-1.1) Activated Partial Thromboplast Time 26.2 SECONDS (21.0-31.0) Partial Thromboplastin Ratio 1.0 Anion Gap 8.0 mmol/L (3-11) Est Creatinine Clear Calc Drug Dose 69.5 ml/min Estimated GFR () 87.4 Estimated GFR (Non- 75.4 BUN/Creatinine Ratio 16.2 (10-20) Calcium Level 9.5 mg/dl (8.5-10.1) Magnesium Level 1.9 mg/dl (1.8-2.4) Total Bilirubin 0.5 mg/dl (0.2-1) Aspartate Amino Transf (AST/SGOT) 24 U/L (15-37) Alanine Aminotransferase (ALT/SGPT) 31 U/L (12-78) Alkaline Phosphatase 42 U/L (45-117) Troponin I 0.105 ng/ml (0-0.045) Total Protein 7.0 gm/dl (6.4-8.2) Albumin 3.8 gm/dl (3.4-5.0) Globulin 3.2 gm/dl (2.5-4.0) Albumin/Globulin Ratio 1.2 (0.9-2) Thyroid Stimulating Hormone (TSH) 1.050 uIu/ml (0.300-4.500) Urine Color YELLOW Urine Appearance CLEAR (CLEAR) Urine pH 7.0 (4.5-7.5) Urine Specific [place] 1.018 (1.000-1.030) Urine Protein NEG (NEG) Urine Glucose (UA) TRACE (NEG) Urine Ketones NEG (NEG) Urine Occult Blood NEG (NEG) Urine Nitrite NEG (NEG) Urine Bilirubin NEG (NEG) Urine Urobilinogen POS (NEG) Urine Leukocyte Esterase TRACE (NEG) Urine WBC (Auto) 1-5 /hpf (0-5) Urine RBC (Auto) 0-4 /hpf (0-4) Urine Hyaline Casts (Auto) 1-5 /lpf (0-5) Urine Epithelial Cells (Auto) 10-20 /lpf (0-5) Urine Bacteria (Auto) NEG (NEG) Laboratory results reviewed by me. Medications Administered Medications (Trade) Dose Ordered Sig/Juliette Route Start Time Stop Time Status Last Admin Dose Admin Hydralazine HCl (HydrALAZINE INJ) 10 mg NOW STAT IV 09/13/16 18:28 09/13/16 18:33 DC 09/13/16 19:19 10 MG Hydralazine HCl (HydrALAZINE INJ) 10 mg NOW STAT IV 09/13/16 19:51 09/13/16 19:52 DC 09/13/16 19:59 10 MG ECG Indication: weakness Rate (beats per minute): 61 Rhythm: other (Atrial pacemaker with a long AV conduction) Findings: no ectopy, other (Old anterior infarct) Comparison ECG Date: June 23, 2016 Change: no significant change ED Course 1822: The patient was evaluated in room C12A. A complete history and physical exam was performed. 1827: Hydralazine HCl 10 mg IV 1950: Hydralazine HCl 10 mg IV 1999: Upon reexamination the patient continues to complain of his pain and is requesting pain medication. I discussed results and treatment plan with the patient. He verbalizes agreement and understanding. The patient will be evaluated for further management. 2015: Morphine Sulfate 4 mg IV 2020: [facility] the [facility] Medical Decision Differential diagnosis includes but is not limited to worsening spinal stenosis , uncontrolled hypertension, hypertensive crisis, UTI, lumbar fracture, musculoskeletal pain, anemia, electrolyte imbalance. There is no leukocytosis or concerning anemia. No significant electrolyte abnormality, kidney failure or hepatitis. EKG shows an atrial pacemaker, no obvious acute ischemia. Cardiac enzyme testing times one is somewhat elevated. Lumbar spine CT shows arthritis, no acute fracture. Urinalysis does not show evidence for infection. On exam, the patient had no focal neurologic deficits. He was not febrile or toxic. The patient's blood pressure was elevated, he denied missing any medication doses. He received IV hydralazine 2 doses, his blood pressure is still high. He was ordered for IV morphine as needed for his lower back pain. With the uncontrolled hypertension, with the troponin elevation, I did feel further care in the hospital was warranted. The patient did have a very similar event back a few months ago for which hospitalization was required. There was concern at that time that he may not have been compliant with his blood pressure medications. I spoke to the patient, I did talk with the case assembler and the on-call hospitalist. Admission/observation is warranted. Consults Time Called: 1952 Consulting Physician[facility] Returned Call: 2019 I discussed the patient's case with Dr. Hoyt, from [facility]. Impression Primary Impression: Hypertensive urgency Additional Impressions: Elevated troponin Lower back pain Scribe Attestation The scribe's documentation has been prepared under my direction and personally reviewed by me in its entirety. I confirm that the note above accurately reflects all work, treatment, procedures, and medical decision making performed by me. Departure Information Dispostion Being Evaluated By Hospitalist Referrals Tadeo Barone M.D. (PCP) Patient Instructions [facility] Problem Qualifiers
[2016-09-13 18:51] LABS: BUN/CREATININE RATIO 16.2 (10-20); CALCIUM 9.5 mg/dl (8.5-10.1); MAGNESIUM 1.9 mg/dl (1.8-2.4)
[2016-09-13 19:01] LABS: INR 1.1 (0.9-1.1); PROTHROMBIN TIME (PATIENT) 12.1 SECONDS (9.0-12.0)
[2016-09-13 19:04] LABS: ALB/GLOB RATIO 1.2 (0.9-2); THYROID STIMULATING HORMONE 1.05 uIu/ml (0.300-4.500)
--- NOTE | 2016-09-13 19:17 | DIAGNOSTIC IMAGING REPORT ---
LUMBAR SPINE CT CT DOSE: 1528.49 mGy.cm HISTORY: pain down legs and in back, weak TECHNIQUE: Multiaxial CT images of the lumbar spine were performed and reformatted in the sagittal and coronal plane without the use of contrast. COMPARISON: Lumbar spine CT 06/24/2016. FINDINGS: No fracture or subluxation. Severe disc space narrowing at L5-S1, unchanged. Mild disc space throughout remaining lumbar spine. The visualized retroperitoneal soft tissues are unremarkable. L1-2 level: There are prominent anterior and lateral osteophytes. No focal herniations are visualized. There is no significant spinal or foraminal stenosis L2-3 level: There is a circumferential disc bulge present. There is mild to moderate spinal stenosis. There is no significant foraminal narrowing L3-4 level: There is a circumferential disc bulge present. There is moderate spinal stenosis. There is no significant foraminal narrowing. L4-5 level: There is a circumferential disc bulge. There is moderate spinal stenosis. There is no significant foraminal narrowing L5-S1 level: There is a prominent disc osteophyte complex. There is moderate to severe secondary deformity of thecal sac. The disc osteophyte complexes asymmetric to the left. There is left-sided foraminal narrowing. IMPRESSION: 1. No significant change compared to the prior study. No fractures or traumatic subluxations identified 2. Multilevel spondylitic changes with spinal stenosis at the L2-3 through L5-S1 levels as described above. Electronically signed by: Isreal Nagy M.D. 09/13/2016 7:16 PM Dictated Date/Time: 09/13/2016 7:11 PM
[2016-09-13] MEDS ORDERED: LDDP5 TD (19:53)
[2016-09-13] MEDS ORDERED: CHOL100010 PO (19:53)
[2016-09-13] MEDS ORDERED: ACET-1256 PO (19:53)
[2016-09-13] MEDS ORDERED: MoRPHine SULFATE 4 MG/ML 1 ML CARP\\VIAL IV PRN (20:15)
[2016-09-13 20:51] LABS: URINE APPEARANCE CLEAR (CLEAR); URINE BILIRUBIN NEG (NEG); URINE COLOR YELLOW; URINE NITRITE NEG (NEG); URINE SPECIFIC GRAVITY 1.018 (1.000-1.030); UROBILINOGEN POS (NEG); ZZUR CULT IF INDIC CLEAN CATCH NO
[2016-09-13 20:52] LABS: MANUAL MICROSCOPIC REQUIRED? NO; REVIEW REQ? NO
[2016-09-13] MEDS ORDERED: ACETAMINOPHEN 325 MG TAB PO PRN (22:00)
--- NOTE | 2016-09-13 22:37 | History and Physical ---
History & Physical Date & Time of Service: Sep 13, 2016 at 22:37 . Chief Complaint: back pain, leg weakness . Primary Care Physician: Tadeo Barone M.D. . History of Present Illness Source: patient, clinic records, hospital records 71 [address] male followed by Dr[address] Barone. History of ischemic heart disease, atrial fibrillation, pacemaker, DM, and other problems noted below. Hospitalized 06/21/16 - 06/26/16 with severe low back pain. Imaging of lumbar spine per CT demonstrated multilevel spinal stenosis. Pain Management consultation obtained. Arrangements were made for outpatient follow-up with epidural injection after apixaban had been held for the procedure. The epidural injection was performed on 08/25/16 with some relief for a while. Low back pain subsequently worsened. Patient has been taking gabapentin, but only BID. He is using tramadol and hydrocodone / acetaminophen PRN, but they are not as effective as they were. Today he noted worsening low back pain. Pain level was 9/10 and radiated to bilateral lower extremities; it was associated with bilateral lower extremity weakness. He fell while using his walker; no injuries. No bladder or bowel dysfunction. . Past Medical/Surgical History Medical Problems: (1) CAD (coronary artery disease) Permanent Comment: Non-obstructive by cath in 2009 Status: Chronic (2) Chronic diastolic CHF (congestive heart failure), NYHA class 1 Permanent Comment: Echo 05/2015- EF 65-69%, grade II diastolic dysfunction, mild AV regurgitation, mildly enlarged aortic root and proximal ascending aorta Status: Chronic (3) CKD (chronic kidney disease), stage III Status: Chronic (4) DM type 2 (diabetes mellitus, type 2) Status: Chronic (5) Dyslipidemia Status: Chronic (6) Hypertension Status: Chronic (7) Paroxysmal a-fib Permanent Comment: on apixaban Status: Chronic (8) Sleep apnea Permanent Comment: s/p UPPP Status: Chronic (9) Tachy-aquiles syndrome Permanent Comment: S/P pacemaker in 2013 Status: Chronic Surgical Problems: (1) H/O inguinal hernia repair Status: Chronic (2) H/O palate surgery Status: Chronic (3) H/O umbilical hernia repair Status: Chronic (4) History of cataract surgery Status: Chronic . Family History Hypertension Kidney disease Stroke FATHER MOTHER Social History Smoking Status: Former Smoker Alcohol Use: none Drug Use: none Marital Status: Housing status: lives with significant other Occupational Status: employed, retired Immunizations History of Influenza Vaccine: Yes History of Tetanus Vaccine?: Unknown History of Pneumococcal: Yes History of Hepatitis B Vaccine: Unknown Allergies Coded Allergies: No Known Allergies (Unverified , 09/13/16) Home Medications Scheduled Amiodarone Hcl (Cordarone), 200 MG PO BID Apixaban (Eliquis), 5 MG PO BID Aspirin (Aspirin Ec), 81 MG PO QAM Carvedilol (Coreg), 25 MG PO BIDM Cholecalciferol (Vitamin D), 1,000 UNIT PO QAM Fenofibrate (Tricor), 145 MG PO DAILY Gabapentin (Gabapentin), 300 MG PO TID Lisinopril (Prinivil), 20 MG PO BID Magnesium Oxide (Mag-Ox), 400 MG PO DAILY Metformin Hcl (Glucophage), 1,000 MG PO BIDM Potassium Chloride (Micro-K Ext Rel), 20 MEQ PO DAILY Rosuvastatin Calcium (Crestor), 20 MG PO HS Spironolactone (Aldactone), 12.5 MG PO DAILY Terazosin (Hytrin), 5 MG PO HS Scheduled PRN Acetaminophen (Tylenol), 1,000 MG PO Q8 PRN for Pain Furosemide (Lasix), 40 MG PO BID PRN for PRN Hydrocodone/Acetaminophen 5MG/325MG ([place] 5MG/325MG), 1-2 TAB PO Q4H PRN for Pain Lidocaine (Lidocaine), 1 PATCH TD UD PRN for Pain Nitroglycerin (Nitrostat), 0.4 MG UT UD PRN for Chest Pain Tramadol Hcl (Ultram), 50 MG PO Q6H PRN for Pain Review of Systems Constitutional: No chills, No fever, No weight loss Eyes: No diplopia, No worsening of vision ENT: No nasal symptoms, No sore throat Respiratory: No cough, No shortness of breath Cardiovascular: + edema (mild pedal edema), No chest pain Abdomen: No GI bleeding, No constipation, No diarrhea, No nausea, No pain, No vomiting Musculoskeletal: + problem reported (low back pain as noted above) Genitourinary - Male: + problem reported (nocturia once a night), No dysuria, No hematuria Neurologic: + weakness (lower extremities) Endocrine: + problem reported (blood sugars well-controlled at home), No excessive thirst, No excessive urination Integumentary: No new/changing skin lesions, No rash Physical Exam Vital Signs Date Time Temp Pulse Resp B/P Pulse Ox O2 Delivery O2 Flow Rate FiO2 09/13/16 22:34 78 09/13/16 21:57 66 18 185/95 96 Room Air 09/13/16 21:14 66 18 166/87 95 Room Air 09/13/16 20:56 66 18 201/108 95 Room Air 09/13/16 19:39 69 18 190/90 95 Room Air 09/13/16 18:36 63 09/13/16 18:06 36.8 64 20 193/118 95 Room Air General Appearance: WD/WN, no apparent distress, + obese Head: normocephalic, atraumatic Eyes: normal inspection, PERRL, EOMI, sclerae normal ENT: normal ENT inspection, hearing grossly normal, TMs normal, pharynx normal , + pertinent finding (edentulous, upper dentures) Neck: supple, no adenopathy, thyroid normal, no JVD, trachea midline Respiratory/Chest: lungs clear, no respiratory distress Cardiovascular: regular rate, rhythm, no JVD, no murmur, + gallop/S4, + pertinent finding (trace pretibial edema) Abdomen/GI: normal bowel sounds, non tender, soft, no organomegaly Back: + pertinent finding (low back pain with bilat SLR) Extremities/Musculoskelatal: normal inspection, no calf tenderness, normal capillary refill, + pedal edema (trace), + pertinent finding (onychomycosis toenails) Neurologic/Psych: 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 nml as tested (PERRL, EOMI, no dysarthria, no facial palsy), alert, oriented x 3, + motor weakness (bilateral lower extremity weakness- hip flexion 3-4/5), + abnormal reflexes (patellar and Melville's tendon reflexes hypoflexic) Skin: normal color, warm/dry, + rash (tinea pedis) Lymphatic: no adenopathy Diagnostics Laboratory Results Results Past 24 Hours Test 09/13/16 17:00 09/13/16 20:40 Range/Units White Blood Count 7.74 4.8-10.8 K/uL Red Blood Count 4.82 4.7-6.1 M/uL Hemoglobin 15.2 14.0-18.0 g/dL Hematocrit 44.4 42-52 % Mean Corpuscular Volume 92.1 80-100 fL Mean Corpuscular Hemoglobin 31.5 25-34 pg Mean Corpuscular Hemoglobin Concent 34.2 32-36 g/dl Platelet Count 168 130-400 K/uL Mean Platelet Volume 10.6 7.4-10.4 fL Neutrophils (%) (Auto) 63.1 % Lymphocytes (%) (Auto) 26.5 % Monocytes (%) (Auto) 8.0 % Eosinophils (%) (Auto) 1.2 % Basophils (%) (Auto) 0.4 % Neutrophils # (Auto) 4.89 1.4-6.5 K/uL Lymphocytes # (Auto) 2.05 1.2-3.4 K/uL Monocytes # (Auto) 0.62 0.11-0.59 K/uL Eosinophils # (Auto) 0.09 0-0.5 K/uL Basophils # (Auto) 0.03 0-0.2 K/uL RDW Standard Deviation 48.6 36.4-46.3 fL RDW Coefficient of Variation 14.4 11.5-14.5 % Immature Granulocyte % (Auto) 0.8 % Immature Granulocyte # (Auto) 0.06 0.00-0.02 K/uL Prothrombin Time 12.1 9.0-12.0 SECONDS Prothromb Time International Ratio 1.1 0.9-1.1 Activated Partial Thromboplast Time 26.2 21.0-31.0 SECONDS Partial Thromboplastin Ratio 1.0 Sodium Level 140 136-145 mmol/L Potassium Level 4.0 3.5-5.1 mmol/L Chloride Level 103 98-107 mmol/L Carbon Dioxide Level 29 21-32 mmol/L Anion Gap 8.0 3-11 mmol/L Blood Urea Nitrogen 16 7-18 mg/dl Creatinine 1.00 0.60-1.40 mg/dl Est Creatinine Clear Calc Drug Dose 69.5 ml/min Estimated GFR () 87.4 Estimated GFR (Non- 75.4 BUN/Creatinine Ratio 16.2 10-20 Random Glucose 126 70-99 mg/dl Calcium Level 9.5 8.5-10.1 mg/dl Magnesium Level 1.9 1.8-2.4 mg/dl Total Bilirubin 0.5 0.2-1 mg/dl Aspartate Amino Transf (AST/SGOT) 24 15-37 U/L Alanine Aminotransferase (ALT/SGPT) 31 12-78 U/L Alkaline Phosphatase 42 45-117 U/L Troponin I 0.105 0-0.045 ng/ml Total Protein 7.0 6.4-8.2 gm/dl Albumin 3.8 3.4-5.0 gm/dl Globulin 3.2 2.5-4.0 gm/dl Albumin/Globulin Ratio 1.2 0.9-2 Thyroid Stimulating Hormone (TSH) 1.050 0.300-4.500 uIu/ml Urine Color YELLOW Urine Appearance CLEAR CLEAR Urine pH 7.0 4.5-7.5 Urine Specific [place] 1.018 1.000-1.030 Urine Protein NEG NEG Urine Glucose (UA) TRACE NEG Urine Ketones NEG NEG Urine Occult Blood NEG NEG Urine Nitrite NEG NEG Urine Bilirubin NEG NEG Urine Urobilinogen POS NEG Urine Leukocyte Esterase TRACE NEG Urine WBC (Auto) 1-5 0-5 /hpf Urine RBC (Auto) 0-4 0-4 /hpf Urine Hyaline Casts (Auto) 1-5 0-5 /lpf Urine Epithelial Cells (Auto) 10-20 0-5 /lpf Urine Bacteria (Auto) NEG NEG Diagnostic Radiology LUMBAR SPINE CT IMPRESSION: 1. No significant change compared to the prior study. No fractures or traumatic subluxations identified 2. Multilevel spondylitic changes with spinal stenosis at the L2-3 through L5-S1 levels as described above. Electronically signed by: Isreal Nagy M.D. 09/13/2016 7:16 PM . EKG EKG performed at 17:59 reviewed and demonstrated atrial pace rhythm at 60 / minute, possible age-indeterminate anteroseptal infarct, no acute changes. Tracing compared to EKG performed 06/23/16- no significant changes. . Impression Assessment and Plan BACK PAIN / LOWER EXTREMITY WEAKNESS History of multi-level lumbar spinal stenosis. Recent epidural injection with some improvement, now with worsening pain as well as apparent lower extremity weakness (vs decreased effort due to severe pain). CT lumbar spine shows multi-level lumbar stenosis as before; MRI cannot be performed due to pacemaker. Continue hydrocodone / acetaminophen, tramadol, lidocaine patch. IV hydromorphone PRN for severe pain. Continue gabapentin. Try to avoid systemic steroids due to DM. Try to avoid NSAID's due to CKD. Consult Pain Management and Ortho; hold anticoagulants pending their input. PT / OT evals when pain under better control. May need rehab. ELEVATED TROPONIN / ISCHEMIC HEART DISEASE History of ischemic heart disease (mild nonobstructive disease per cath 2009). No chest pain. Troponin in ED = 0.105. EKG similar to previous tracings. Troponin as high as 0.189 last visit, fell to 0.143 by discharge. Seen in consultation at that time by Cardiology. Echo showed normal LV wall motion and systolic function. It was felt that elevated troponins most likely due to hypertensive urgency, not acute coronary syndrome. Check f/u troponin with morning labs. Consult Cardiology if patient develops symptoms indicating acute coronary syndrome or other concerns. PAROXYSMAL ATRIAL FIBRILLATION EKG in ED demonstrated atrial paced rhythm. Continue amiodarone and carvedilol. Hold apixaban short-term in case invasive procedures are necessary. HYPERTENSION / HYPERTENSIVE HEART DISEASE / CHRONIC LEFT VENTRICULAR DIASTOLIC HEART FAILURE BP elevated in ED. CHF compensated. Continue carvedilol, lisinopril, terazosin, spironolactone. Uses furosemide PRN- will hold for now. Follow and titrate Rx. DM TYPE II History of DM type II, well controlled on metformin. Check Hgb A1C. Hold metformin during hospital stay. Insulin as needed for elevated blood sugars. VTE PROPHYLAXIS Hold apixaban pending input from Pain Management and Ortho. SCD's. Ambulate as able. RESUSCITATION LEVEL Discussed with patient. He has a living will. He would like resuscitation attempted in the event of a cardiopulmonary arrest if there is a reasonable chance of a meaningful recovery, but does not want prolonged extraordinary measures if prognosis is poor. Therefore, code status = "Level 1" (full resuscitation). DISPOSITION Observation status on Telemetry Unit. Discharge disposition to be determined- may need rehab. Family Medicine follow-up with Dr. Barone. . VTE Prophylaxis VTE Risk Assessment Done? Y/N: Yes Risk Level: Moderate Given or contraindicated: SCD's
[2016-09-13] MEDS ORDERED: LIDODERM (LIDOCAINE) PATCH 5% TD PRN (22:45)
[2016-09-13] MEDS ORDERED: TRAMADOL HCL 50 MG TAB PO PRN (22:45)
[2016-09-13] MEDS ORDERED: HYDROmorphone INJ 1 MG/ML SYR IV PRN (22:45)
[2016-09-13] MEDS ORDERED: HYDROmorphone INJ 1 MG/ML SYR IV STA (22:45)
[2016-09-13] MEDS ORDERED: NITROGLYCERIN 0.4 MG SL PER TAB CHARGE UT PRN (22:45)
[2016-09-13] MEDS ORDERED: CARVEDILOL 25 MG TAB PO STA (22:47)
[2016-09-13] MEDS ORDERED: LISINOPRIL 20 MG TAB PO STA (22:48)
[2016-09-13] MEDS ORDERED: GABAPENTIN 300 MG CAP PO STA (22:48)
[2016-09-13] MEDS ORDERED: ROSUVASTATIN CALCIUM 20 MG TAB PO STA (22:48)
[2016-09-13] MEDS ORDERED: AMIODARONE 200 MG TAB PO STA (22:49)
[2016-09-13] MEDS ORDERED: IV FLUIDS COMPLETED PRN (23:00)
[2016-09-14] MEDS ORDERED: DEXTROSE 50% 50 ML SYR IV PRN (05:15)
[2016-09-14] MEDS ORDERED: GLUCAGON FOR INJ 1 MG VIAL SQ PRN (05:15)
[2016-09-14] MEDS ORDERED: GLUCOSE 40% GEL 15 GM TUBE PO PRN (05:15)
[2016-09-14] MEDS ORDERED: GLUCOSE 10 TABS/TUBE PO PRN (05:15)
[2016-09-14 07:17] LABS: ESTIMATED AVERAGE GLUCOSE 180 mg/dl; HA1C FLAG Normal (Normal)
[2016-09-14 08:00] VITALS: BP 173/103; PULSE 88; TEMP 37; O2SAT 96; BMI 37.5
[2016-09-14] MEDS: INSULIN ASPART 100 UNITS/ML 3 ML PEN SC SCH ×4 (08:42→20:48)
[2016-09-14] MEDS: LISINOPRIL 20 MG TAB PO SCH ×2 (08:44→21:02)
[2016-09-14] MEDS: GABAPENTIN 300 MG CAP PO SCH ×3 (08:45→21:03)
[2016-09-14] MEDS: FENOFIBRATE 145 MG TAB PO SCH (08:46)
[2016-09-14] MEDS: MAGNESIUM OXIDE 400 MG TAB PO SCH (08:47)
[2016-09-14] MEDS: ASPIRIN 81 MG ECTAB PO SCH (08:48)
[2016-09-14] MEDS: POTASSIUM CHLORIDE 10 MEQ TABCR PO SCH (08:48)
[2016-09-14] MEDS: AMIODARONE 200 MG TAB PO SCH ×2 (08:49→21:02)
[2016-09-14] MEDS: SPIRONOLACTONE 25 MG TAB PO SCH (08:50)
[2016-09-14] MEDS: CARVEDILOL 25 MG TAB PO SCH ×2 (08:51→17:10)
[2016-09-14] MEDS: HYDROmorphone INJ 0.5 MG/0.5 ML SYR IV PRN ×2 (10:28→23:36)
[2016-09-14] MEDS: HYDROCODONE/ACETAMOPHEN 5/325MG TAB PO PRN ×2 (10:42→15:06)
[2016-09-14 11:15] VITALS: BP 176/100; PULSE 82; TEMP 36.6; O2SAT 95
--- NOTE | 2016-09-14 11:46 | Pain Management Consultation ---
Pain Management Consultation Date of Consultation Sep 14, 2016. Reason for Consultation Lumbar radiculitis History Mr. Celaya is a 71 year old white male that is known to the [facility] with a history of spinal canal stenosis. He has previously received a lumbar epidural injection on 08/09/16 which provided 100% pain relief for 1 week and a gradual return of pain. Patient is scheduled for a lumbar epidural in the clinic on 09/22/16. He states that his pain has been worsening over the last 2 weeks to which he is using a walker for ambulation. Last night he was trying to ambulate with a walker and had to go unassisted to the bathroom and felt his knees buckle and fell onto the floor. Patient describes a deep aching and burning pain along the low back and into the gluteal/hip area, right greater than left. He does report bilateral leg weakness, right greater than left. There is an aching and burning pain. Patient rates his pain a 8/10 currently. Pain is aggravated with walking and positional changes. Patient denies any bowel/bladder incontinence, foot drop, saddle anesthesia. Case discussed with Dr. Bentley Past Medical/Surgical History (1) Hypertension (2) Dyslipidemia (3) Paroxysmal a-fib (4) Tachy-aquiles syndrome (5) CAD (coronary artery disease) (6) DM type 2 (diabetes mellitus, type 2) (7) CKD (chronic kidney disease), stage III (8) Sleep apnea (9) Chronic diastolic CHF (congestive heart failure), NYHA class 1 (10) H/O palate surgery (11) H/O inguinal hernia repair (12) H/O umbilical hernia repair (13) History of cataract surgery Social / Work History Smoking Status: Never smoker Smokeless Tobacco Use: No Alcohol Use: none Drug Use: none Marital Status: Housing Status: lives with family (Lives with and daughter with MS) Occupation: retired (previously employed at [employer]) Allergies Coded Allergies: No Known Allergies (Unverified , 09/13/16) Medications Current Inpatient Medications Medications (Trade) Dose Ordered Sig/Juliette Route Start Time Stop Time Status Last Admin Dose Admin Acetaminophen (Tylenol Tab) 650 mg Q4H PRN PO 09/13/16 22:00 10/13/16 21:59 09/14/16 07:16 650 MG Amiodarone HCl (Cordarone Tab) 200 mg BID PO 09/14/16 09:00 10/14/16 08:59 09/14/16 08:49 200 MG Aspirin (Ecotrin Tab) 81 mg QAM PO 09/14/16 09:00 10/14/16 08:59 09/14/16 08:48 81 MG Carvedilol (Coreg Tab) 25 mg BIDM PO 09/14/16 08:00 10/14/16 07:59 09/14/16 08:51 25 MG Fenofibrate (Tricor Tab) 145 mg DAILY PO 09/14/16 09:00 10/14/16 08:59 09/14/16 08:46 145 MG Gabapentin (Neurontin Cap) 300 mg TID PO 09/14/16 09:00 10/14/16 08:59 09/14/16 08:45 300 MG Acetaminophen/ Hydrocodone Bitart ([place] 5/325 Tab) 2 tab Q4H PRN PO 09/13/16 22:45 09/27/16 22:44 Lidocaine (Lidoderm Patch 5%) 1 patch Q12H PRN TD 09/13/16 22:45 10/13/16 22:44 Lisinopril (Zestril Tab) 20 mg BID PO 09/14/16 09:00 10/14/16 08:59 09/14/16 08:44 20 MG Magnesium Oxide (Mag-Ox Tab) 400 mg DAILY PO 09/14/16 09:00 10/14/16 08:59 09/14/16 08:47 400 MG Nitroglycerin (Nitrostat Tab) 0.4 mg UD PRN UT 09/13/16 22:45 10/13/16 22:44 Potassium Chloride (Klor-Con M10) 20 meq DAILY PO 09/14/16 09:00 10/14/16 08:59 09/14/16 08:48 20 MEQ Rosuvastatin Calcium (Crestor Tab) 20 mg HS PO 09/14/16 21:00 10/14/16 20:59 Spironolactone (Aldactone Tab) 12.5 mg DAILY PO 09/14/16 09:00 10/14/16 08:59 09/14/16 08:50 12.5 MG Terazosin HCl (Hytrin Cap) 5 mg HS PO 09/14/16 21:00 10/14/16 20:59 Tramadol HCl (Ultram Tab) 50 mg Q6H PRN PO 09/13/16 22:45 10/13/16 22:44 Miscellaneous (Iv Fluids Completed) 1 ea PRN PRN N/A 09/13/16 23:00 09/13/17 22:59 Miscellaneous (Remove Lidoderm Patch) 1 ea Q12H PRN N/A 09/14/16 01:45 10/14/16 01:44 Insulin Aspart (novoLOG ASPART) SLIDING SCALE G... ACHS SC 09/14/16 07:00 10/14/16 06:59 09/14/16 08:42 2 UNITS Glucose (Glucose 40% Gel) 15-30 GRAMS 15 GRAMS... UD PRN PO 09/14/16 05:15 10/14/16 05:14 Glucose (Glucose Chew Tab) 4-8 Tablets 4 Tabl... UD PRN PO 09/14/16 05:15 10/14/16 05:14 Dextrose (Dextrose 50% 50ML Syringe) 25-50ML OF 50% DW IV FOR... UD PRN IV 09/14/16 05:15 10/14/16 05:14 Glucagon (Glucagon Inj) 1 mg UD PRN SQ 09/14/16 05:15 10/14/16 05:14 Hydromorphone HCl (Dilaudid Inj) 0.5 mg Q3H PRN IV 09/14/16 10:10 09/28/16 10:09 Polyethylene (Miralax Powder Packet) 17 gm DAILY PO 09/15/16 09:00 10/15/16 08:59 Review of Systems Denies any constitutional, cardiac, pulmonary, neurological, GI, , extremity, endocrine, neuro, ENT, dermatological, or musculoskeletal complaints other than stated in HPI Physical Exam Height & Weight: Height 5 feet, 3.00 inches. Weight 96.000 (Kilograms) 211 (Pounds) Last Vital Signs Documentation Date Time Temp Pulse Resp B/P Pulse Ox O2 Delivery O2 Flow Rate FiO2 09/14/16 07:17 36.8 79 18 176/85 96 Room Air Exam: GENERAL: Mr. Celaya is a 71 y/o white male that appears his stated age. Speech and cognition is intact. Mood and affect is appropriate. He does appear to be in moderate distress with positional changes. HEAD: Normocephalic; atraumatic. EYES: Pupils are round, equal, and reactive to light; EOM intact. ENT: No external ear discharge or lesions. No rhinorrhea or epistaxis. No mucosal lesions. CHEST: Regular chest respiration and excursion. EXTREMITIES: There is 4/5 strength of the right leg, 5/5 strength of the left leg. Negative SLR. Sensation is intact and equal. Negative EUGENIA maneuver. BACK: Loss of lumbar lordosis. There is lumbosacral and right SI joint tenderness. No paravertebral or quadratus lumborum spasm. NEURO: CN II-XII grossly intact with no focal deficits noted. AAO x 3. SKIN: No lesions, erythema, or rashes noted. Laboratory / Imaging Results Laboratory Results (Last CBC): 09/13/16 17:00 Red Blood Count 4.82, Mean Corpuscular Volume 92.1, Mean Corpuscular Hemoglobin 31.5, Mean Corpuscular Hemoglobin Concent 34.2, Mean Platelet Volume 10.6 H, Neutrophils (%) (Auto) 63.1, Lymphocytes (%) (Auto) 26.5, Monocytes (%) (Auto) 8.0, Eosinophils (%) (Auto) 1.2, Basophils (%) (Auto) 0.4, Neutrophils # (Auto) 4.89, Lymphocytes # (Auto) 2.05, Monocytes # (Auto) 0.62 H, Eosinophils # (Auto ) 0.09, Basophils # (Auto) 0.03 Imagin09/13/[address] 1. No significant change compared to the prior study. No fractures or traumatic subluxations identified 2. Multilevel spondylitic changes with spinal stenosis at the L2-3 through L5- S1 levels as described above. [place] Drug Monitoring Program Search Results: patient reviewed within database, no issues identified Assessment 1. Lumbago. 2. Lumbar radicular pain without myelopathy. 3. Lumbar spinal canal stenosis, L2 through S1. 4. Diabetes mellitus -- non-insulin dependent. 5. Atrial fibrillation on chronic Eliquis therapy. 6. History of coronary artery disease and congestive heart failure. Recommendations 1. Continue Hydrocodone PO and Dilaudid IV PRN breakthrough pain 2. Recommend PT/OT 3. We have discussed a repeat L5-S1 interlaminar epidural injection for the patient to decrease pain. He was scheduled on 09/22/16 and he has been moved to 09/19/16 at 11:15. Recommend that the patient continue Eliquis therapy for now and will hold 72 hours prior to the scheduled procedure. Dragon Voice Recognition This chart was completed in part utilizing [employer] Voice Recognition Software. Random word insertions, pronoun errors, and incomplete sentences are an occasional consequence of this system due to software limitations and ambient noise. Any questions or concerns about the content, text or information contained within the body of this dictation should be directly addressed to the provider for clarification. Additional Copies To Tadeo Barone M.D.
[2016-09-14 13:05] VITALS: Ht 160 cm; Wt 99.1 kg
[2016-09-14 15:27] VITALS: BP 179/99; PULSE 70; TEMP 36.4; O2SAT 96
--- NOTE | 2016-09-14 15:55 | ORTHOPEDIC CONSULTATION ---
DATE OF CONSULTATION: 09/14/2016 CHIEF COMPLAINT: Back and bilateral leg pain and weakness. HISTORY OF PRESENT ILLNESS: This is a 71-year-old male who presents to the Emergency Room with the above-mentioned complaints. He does note a history of back pain, spinal stenosis and neurogenic claudicatory complaints, progress over the past several years. He had an epidural injection in July with significant improvement of his symptom complex. Unfortunately, in the beginning of August, he has had noted a steady decline in his status with an acute exacerbation this past weekend. He denies any specific trauma, fall or event. He describes pain mostly involving the right lower extremity compared to the left. It radiates into the buttock, anterior and posterior thigh. He does get pain in both legs with standing and ambulation. He does note significant weakness with standing and ambulation. Denies any bowel or bladder difficulties or dysfunction. PAST MEDICAL HISTORY: Heart disease, diabetes, kidney disease, AFib, hypertension, dyslipidemia. PAST SURGICAL HISTORY: Hernia repair, cataract surgery, pacemaker placement. He is on Eliquis blood thinner. PHYSICAL EXAMINATION: On exam, he is sitting up in bed. He does appear to be in least moderate distress. He does have decreased sensation to the right anterior thigh compared to the left. He has reasonable sensation in bilateral lower extremities. Deep tendon reflexes diminished. He has +5/5 bilateral plantarflexion, dorsiflexion and extensor hallucis longus, marked weakness to right quadriceps compared to the left. No marked tension signs with straight leg raising on the right compared to the left. CAT scan dated 09/13/2016 of the lumbar spine available for review. It does demonstrate severe multilevel spondylosis. There is marked disk space collapse, posterior calcification L5-S1. There is marked vacuum phenomenon L3-L4, L4-L5. There is appreciable severe neural foraminal disease on the right at L3-L4. Axillary views demonstrate evidence of fairly severe central lateral recess stenosis L2-L3. L3-L4 has evidence of what appears to be a massive far lateral foraminal disc herniation on the right compared to the left. L4-L5 has significant lateral recess stenosis and L5-S1 again demonstrates significant calcification of the posterior annulus of the disc and lateral recess stenosis. ASSESSMENT: Spinal stenosis, most likely acute herniated nucleus pulposus. PLAN: At this time, patient clearly has multiple medical issues and has responded in the past to epidural injections and this could be a consideration. However, he does note a marked decline in status. If he were medically capable and interested, he could consider surgical intervention. He would require lumbar decompression discectomy involving most likely L2-L3, L3-L4, L4-L5, L5-S1. Clearly, this is a very large undertaking, possibly a 3-hour procedure. He understands and agrees. We will get further input from his treating physicians and patient.
[2016-09-14 19:40] VITALS: BP 165/92; PULSE 64; TEMP 36.7; O2SAT 96
[2016-09-14] MEDS: ROSUVASTATIN CALCIUM 20 MG TAB PO SCH (21:02)
[2016-09-14 22:52] VITALS: BP 169/97; PULSE 62; TEMP 36.7; O2SAT 96
[2016-09-14 23:59] VITALS: O2SAT 96
[2016-09-15] VITALS (10 sets, daily range): BP systolic 126–191; BP diastolic 72–105; PULSE 62–66; TEMP 36.4–36.9; O2SAT 93–96
[2016-09-15] MEDS: TRAMADOL HCL 50 MG TAB PO SCH ×4 (00:03→23:52)
[2016-09-15] MEDS: HYDROmorphone INJ 0.5 MG/0.5 ML SYR IV PRN ×2 (04:07→13:47)
[2016-09-15] MEDS: OXYCODONE HCL IR 5 MG TAB (IMMEDIATE RELEASE) PO PRN ×3 (04:46→19:44)
[2016-09-15] MEDS: ACETAMINOPHEN 500 MG TAB PO SCH ×3 (05:34→22:12)
[2016-09-15] MEDS: INSULIN ASPART 100 UNITS/ML 3 ML PEN SC SCH ×4 (07:58→20:48)
[2016-09-15] MEDS: APIXABAN 2.5 MG TAB PO SCH ×2 (07:59→20:54)
[2016-09-15] MEDS: CARVEDILOL 25 MG TAB PO SCH ×2 (08:00→17:16)
[2016-09-15] MEDS: MAGNESIUM OXIDE 400 MG TAB PO SCH (08:00)
[2016-09-15] MEDS: ASPIRIN 81 MG ECTAB PO SCH (08:01)
[2016-09-15] MEDS: AMIODARONE 200 MG TAB PO SCH ×2 (08:01→20:54)
[2016-09-15] MEDS: POTASSIUM CHLORIDE 10 MEQ TABCR PO SCH (08:02)
[2016-09-15] MEDS: POLYETHYLENE (MIRALAX) 17 GM PACK PO SCH (08:03)
[2016-09-15] MEDS: GABAPENTIN 300 MG CAP PO SCH ×3 (08:03→20:54)
[2016-09-15] MEDS: SPIRONOLACTONE 25 MG TAB PO SCH (08:04)
[2016-09-15] MEDS: FENOFIBRATE 145 MG TAB PO SCH (08:04)
[2016-09-15] MEDS: LISINOPRIL 20 MG TAB PO SCH ×2 (08:05→20:55)
[2016-09-15] MEDS ORDERED: HydrALAZINE HCL 20 MG/ML VIAL IV. ONE (08:15)
--- NOTE | 2016-09-15 08:43 | Progress Note ---
Medicine Progress Note Date & Time of Visit: Sep 14, 2016 at 10:41. Subjective 71 yoM with known lumbar DJD and spinal stenosis previously admitted for pain control and on injections per Pain as outpatient, presents with inability to walk 2/2 weakness in his legs and pain yesterday. -reports pain is an 8/10 right now -states that BP is high at home despite a low salt diet -no recent changes in BP meds -took BP meds yesterday -denies any chest pain, shortness of breath, numbness, saddle anesthesia, loss of bladder/bowel control or any other symptom at this time. -pt cannot stand/walk Objective Last 8 Hrs Date Time Temp Pulse Resp B/P Pulse Ox O2 Delivery O2 Flow Rate FiO2 09/14/16 07:17 36.8 79 18 176/85 96 Room Air 09/14/16 06:15 60 16 175/88 96 Room Air 09/14/16 05:03 63 18 166/82 93 Room Air 09/14/16 03:16 64 18 157/86 93 Room Air Physical Exam: GEN: WNWD, in no acute distress when resting in bed, pain with movement, alert and appropriate HEENT: NC/AT, PERRL, normal sclerae, pharynx non-acute CARDIO: reg rate, S1/2 heard without m/g/r LUNGS: CTA bilaterally, no crackles, rales or wheezes, good diaphragmatic excursion ABD: protuberant, soft, non-tender, non-distended, no rebound or guarding, +BS BACK: TTP on R lower back EXTREMITY: RP and DP palpable 2+ bilat, no LE swelling or edema, extremities are warm and well-perfused NEURO: CN 2-12 grossly intact, sensation intact throughout, could not elicit knee or S1 reflex, neg babinski, +SLR test bilaterally MUSC: 5/5 strength throughout, no focal deficits, gait not assessed 2/2 pain SKIN: warm and diaphoretic Laboratory Results: Last 24 Hours Test 09/13/16 17:00 09/13/16 20:40 09/14/16 05:00 09/14/16 07:04 White Blood Count 7.74 K/uL Red Blood Count 4.82 M/uL Hemoglobin 15.2 g/dL Hematocrit 44.4 % Mean Corpuscular Volume 92.1 fL Mean Corpuscular Hemoglobin 31.5 pg Mean Corpuscular Hemoglobin Concent 34.2 g/dl Platelet Count 168 K/uL Mean Platelet Volume 10.6 fL Neutrophils (%) (Auto) 63.1 % Lymphocytes (%) (Auto) 26.5 % Monocytes (%) (Auto) 8.0 % Eosinophils (%) (Auto) 1.2 % Basophils (%) (Auto) 0.4 % Neutrophils # (Auto) 4.89 K/uL Lymphocytes # (Auto) 2.05 K/uL Monocytes # (Auto) 0.62 K/uL Eosinophils # (Auto) 0.09 K/uL Basophils # (Auto) 0.03 K/uL RDW Standard Deviation 48.6 fL RDW Coefficient of Variation 14.4 % Immature Granulocyte % (Auto) 0.8 % Immature Granulocyte # (Auto) 0.06 K/uL Prothrombin Time 12.1 SECONDS Prothromb Time International Ratio 1.1 Activated Partial Thromboplast Time 26.2 SECONDS Partial Thromboplastin Ratio 1.0 Sodium Level 140 mmol/L Potassium Level 4.0 mmol/L Chloride Level 103 mmol/L Carbon Dioxide Level 29 mmol/L Anion Gap 8.0 mmol/L Blood Urea Nitrogen 16 mg/dl Creatinine 1.00 mg/dl Est Creatinine Clear Calc Drug Dose 69.5 ml/min Estimated GFR () 87.4 Estimated GFR (Non- 75.4 BUN/Creatinine Ratio 16.2 Random Glucose 126 mg/dl Calcium Level 9.5 mg/dl Magnesium Level 1.9 mg/dl Total Bilirubin 0.5 mg/dl Aspartate Amino Transf (AST/SGOT) 24 U/L Alanine Aminotransferase (ALT/SGPT) 31 U/L Alkaline Phosphatase 42 U/L Troponin I 0.105 ng/ml 0.088 ng/ml Total Protein 7.0 gm/dl Albumin 3.8 gm/dl Globulin 3.2 gm/dl Albumin/Globulin Ratio 1.2 Thyroid Stimulating Hormone (TSH) 1.050 uIu/ml Urine Color YELLOW Urine Appearance CLEAR Urine pH 7.0 Urine Specific [place] 1.018 Urine Protein NEG Urine Glucose (UA) TRACE Urine Ketones NEG Urine Occult Blood NEG Urine Nitrite NEG Urine Bilirubin NEG Urine Urobilinogen POS Urine Leukocyte Esterase TRACE Urine WBC (Auto) 1-5 /hpf Urine RBC (Auto) 0-4 /hpf Urine Hyaline Casts (Auto) 1-5 /lpf Urine Epithelial Cells (Auto) 10-20 /lpf Urine Bacteria (Auto) NEG Estimated Average Glucose 180 mg/dl Hemoglobin A1c 7.9 % Bedside Glucose 149 mg/dl Assessment & Plan 71 yoM with known lumbar DJD and spinal stenosis previously admitted for pain control and on injections per Pain as outpatient, presents with inability to walk 2/2 weakness in his legs and pain yesterday. 1. Lower back pain-known spinal stenosis and DJD. Receiving outpatient epidural injections through Pain Management has been successful. No changes on CT scan with chronic DJD and spinal stenosis seen. MRI contraindicated 2/2 PM. Elliquis was held in case PM wanted to give injection. Usually held for 3 days prior. Appreciate PM consult and Ortho spine consult with new weakness. Does not appear to have any neurologic deficits on exam this morning. Pain control with [place] and Dilaudid PRN, lidocaine patch, gabapentin and tramadol PRN 2. HTN-chronically elevated and even more at this time with elevated pain level. Will work to control pain and will add Hydralazine 25mg PO TID 3. Hypertroponemia-h/o mild nonobstructive CAD per cath in 2009. No active chest pain and EKG reveals no changes. Recently seen by Cardiology for this during a prior admission and troponin leak was thought to be 2/2 hypertensive heart disease. Echo at that time revealed a normal EF and no wall motion abnormalities. This is not likely related to ischemic heart disease as opposed to demand ischemia. If the patient ends up going to surgery, will have Cardiology perform a pre-op evaluation, however. 4. PAF-cont amio and carvedilol. Apixaban was held until Pain eval in case of need for repeat epidural, which was originally scheduled for next . It is typically held for three days before. 5. DMII-hold metformin, ISS ordered. A1C 7.9. Ordered inpatient glycemic pharmacy consult VTE PROPHYLAXIS Hold apixaban pending input from Pain Management and Ortho. SCD's. Ambulate as able. RESUSCITATION LEVEL Full DISPOSITION Observation status on Telemetry Unit. Discharge disposition to be determined- may need rehab. Family Medicine follow-up with Dr. Barone. Bhargavi Miranda DO [facility] Hospitalist Current Inpatient Medications: Current Inpatient Medications Medications (Trade) Dose Ordered Sig/Juliette Route Start Time Stop Time Status Last Admin Dose Admin Acetaminophen (Tylenol Tab) 650 mg Q4H PRN PO 09/13/16 22:00 10/13/16 21:59 09/14/16 07:16 650 MG Amiodarone HCl (Cordarone Tab) 200 mg BID PO 09/14/16 09:00 10/14/16 08:59 09/14/16 08:49 200 MG Aspirin (Ecotrin Tab) 81 mg QAM PO 09/14/16 09:00 10/14/16 08:59 09/14/16 08:48 81 MG Carvedilol (Coreg Tab) 25 mg BIDM PO 09/14/16 08:00 10/14/16 07:59 09/14/16 08:51 25 MG Fenofibrate (Tricor Tab) 145 mg DAILY PO 09/14/16 09:00 10/14/16 08:59 09/14/16 08:46 145 MG Gabapentin (Neurontin Cap) 300 mg TID PO 09/14/16 09:00 10/14/16 08:59 09/14/16 08:45 300 MG Acetaminophen/ Hydrocodone Bitart ([place] 5/325 Tab) 2 tab Q4H PRN PO 09/13/16 22:45 09/27/16 22:44 Lidocaine (Lidoderm Patch 5%) 1 patch Q12H PRN TD 09/13/16 22:45 10/13/16 22:44 Lisinopril (Zestril Tab) 20 mg BID PO 09/14/16 09:00 10/14/16 08:59 09/14/16 08:44 20 MG Magnesium Oxide (Mag-Ox Tab) 400 mg DAILY PO 09/14/16 09:00 10/14/16 08:59 09/14/16 08:47 400 MG Nitroglycerin (Nitrostat Tab) 0.4 mg UD PRN UT 09/13/16 22:45 10/13/16 22:44 Potassium Chloride (Klor-Con M10) 20 meq DAILY PO 09/14/16 09:00 10/14/16 08:59 09/14/16 08:48 20 MEQ Rosuvastatin Calcium (Crestor Tab) 20 mg HS PO 09/14/16 21:00 10/14/16 20:59 Spironolactone (Aldactone Tab) 12.5 mg DAILY PO 09/14/16 09:00 10/14/16 08:59 09/14/16 08:50 12.5 MG Terazosin HCl (Hytrin Cap) 5 mg HS PO 09/14/16 21:00 10/14/16 20:59 Tramadol HCl (Ultram Tab) 50 mg Q6H PRN PO 09/13/16 22:45 10/13/16 22:44 Miscellaneous (Iv Fluids Completed) 1 ea PRN PRN N/A 09/13/16 23:00 09/13/17 22:59 Miscellaneous (Remove Lidoderm Patch) 1 ea Q12H PRN N/A 09/14/16 01:45 10/14/16 01:44 Insulin Aspart (novoLOG ASPART) SLIDING SCALE G... ACHS SC 09/14/16 07:00 10/14/16 06:59 09/14/16 08:42 2 UNITS Glucose (Glucose 40% Gel) 15-30 GRAMS 15 GRAMS... UD PRN PO 09/14/16 05:15 10/14/16 05:14 Glucose (Glucose Chew Tab) 4-8 Tablets 4 Tabl... UD PRN PO 09/14/16 05:15 10/14/16 05:14 Dextrose (Dextrose 50% 50ML Syringe) 25-50ML OF 50% DW IV FOR... UD PRN IV 09/14/16 05:15 10/14/16 05:14 Glucagon (Glucagon Inj) 1 mg UD PRN SQ 09/14/16 05:15 10/14/16 05:14 Hydromorphone HCl (Dilaudid Inj) 0.5 mg Q3H PRN IV 09/14/16 10:10 09/28/16 10:09 09/14/16 10:28 0.5 MG Polyethylene (Miralax Powder Packet) 17 gm DAILY PO 09/15/16 09:00 10/15/16 08:59
[2016-09-15] MEDS ORDERED: PHARMACY GLYCEMIC MGMT CONSULT SCH (08:54)
--- NOTE | 2016-09-15 13:09 | Pharmacy Progress Note ---
Glycemic Control Intl Consult Date of Service Sep 15, 2016. Scope Glycemic Pharmacist consulted by Dr Miranda on 09/15/16 for glycemic control and to write orders per [facility] inpatient glycemic control protocol Objective Weight (Kilograms): 98.600 Accuchecks BSG (last 24hrs): Test 09/14/16 15:56 09/14/16 20:11 09/15/16 06:50 09/15/16 11:03 Bedside Glucose 174 mg/dl (70-99) 124 mg/dl (70-99) 134 mg/dl (70-99) 172 mg/dl (70-99) HbA1c Test 09/14/16 05:00 Hemoglobin A1c 7.9 % (4.5-5.6) H Recent Pertinent Medications Outpatient Anti-diabetic Regimen: * Metformin 1000 mg bidm * A1c = 7.9 % 09/14/16 The patient is currently receiving: * Basal insulin: none * Correctional Insulin: Novolog Correction per scale ACHS Goal Range: Low 100 mg/dL - High 160 mg/dL Correction Factor: 30 mg/dL/unit * Prandial insulin: Per carb ratio of 1 unit per 15 grams CHO consumed * Oral Agent: none Risk Factors for Insulin Resistance: * Steroids: none currently, received epidural triamcinolone on 08/09 * Recent Surgery: epidural injection or spinal surgery being discussed * Diet: type 2 diabetic AHA Assessment & Plan ASSESSMENT: * ADA & AACE recommend a goal blood sugar range 140-180 mg/dl for the majority of critically ill & non-critically ill patients. However, more stringent targets may be selected in individual cases. * 71 yo type 2 diabetic fairly well controlled on metformin alone. Recent rise in A1c may be related to steroid injection on 08/09/16. Known to us from previous admission. Will decrease goal range a bit and tighten carb ratio. If he receives any steroids, either epidural or in conjunction with surgery, we'll need to tighten Novolog further. Will reassess in am. PLAN FOR INPATIENT GLYCEMIC CONTROL: * Holding outpatient oral diabetes medications * No basal insulin at this time * Correctional Insulin with NOVOLOG per scale ACHS or Q6hrs while NPO * Goal Range: Low 100 mg/dL - High 140 mg/dL * Correction Factor: 30 mg/dL/unit * Nutritional / Prandial insulin per carb ratio of 1 unit per 12 grams CHO consumed * Please note that the plan above was derived based on current level of insulin resistance and hospital stress. These recommendations are appropriate for inpatient admission only. Plan of care upon discharge will need to be reassessed to avoid potential outpatient hypo/hyperglycemia. Thank you.
--- NOTE | 2016-09-15 19:42 | Progress Note ---
Medicine Progress Note Date & Time of Visit: Sep 15, 2016 at 08:02. Subjective 71 yoM with known lumbar DJD and spinal stenosis previously admitted for pain control and on injections per Pain as outpatient, presents with inability to walk 2/2 weakness in his legs and pain yesterday. -pain is better controlled at this time on current regimen -patient attempted to ambulate to the restroom today but became weak and collapsed to the ground requiring a wheelchair assist to get back into bed again -BP is elevated despite improvement in pain control. -tolerating PO Objective Last 8 Hrs Date Time Temp Pulse Resp B/P Pulse Ox O2 Delivery O2 Flow Rate FiO2 09/15/16 07:39 36.7 63 20 191/93 93 Room Air 09/15/16 05:34 62 169/89 09/15/16 04:00 94 Room Air 09/15/16 03:41 36.4 64 16 176/105 94 Room Air Physical Exam: GEN: WNWD, in no acute distress, alert and appropriate, lying in bed HEENT: NC/AT, normal sclerae CARDIO: reg rate, S1/2 heard without m/g/r LUNGS: CTA bilaterally, no crackles, rales or wheezes, good diaphragmatic excursion ABD: soft, non-tender, non-distended, no rebound or guarding, +BS EXTREMITY: RP and DP palpable 2+ bilat, no LE swelling or edema, extremities are warm and well-perfused NEURO: CN 2-12 grossly intact, sensation intact throughout lower extremities, 2/ 5 reflexes in knees bilat, +SLR at 15 degrees worse on right side MUSC: 5/5 strength throughout, no focal deficits SKIN: warm and dry Laboratory Results: Last 24 Hours Test 09/14/16 11:35 09/14/16 15:56 09/14/16 20:11 09/15/16 06:50 Bedside Glucose 148 mg/dl 174 mg/dl 124 mg/dl 134 mg/dl Assessment & Plan 71 yoM with known lumbar DJD and spinal stenosis previously admitted for pain control and on injections per Pain as outpatient, presents with inability to walk 2/2 weakness in his legs and pain yesterday. 1. Lower back pain-known spinal stenosis and DJD. Receiving outpatient epidural injections through Pain Management has been somewhat successful, however, at bedside today and states that it has not been that great of an effect. No changes on CT scan with chronic DJD and spinal stenosis seen. MRI contraindicated 2/2 PM. Elliquis was held in case PM wanted to give injection. Usually held for 3 days prior. Was restarted last night as no projected procedure until next week. Patient is now seriously considering lumbar surgery with Dr. Centeno who feels weakness may be related to a herniated disc. Weakness is acute. SLR is still positive R>L today. Good pain control with scheduled Tylenol/Tramadol and PRN narcotics for breakthrough. Asked Cardiology for assistance with preop assessment as patient is complicated and sees them as an outpatient. Dr. Rodriguez to see patient in the morning. 2. HTN-chronically elevated and even more at this time with elevated pain level. Added hydralazine 25mg PO TID yesterday morning along with scheduled pain medications. This morning pain was 3/10 and he was 193 systolic. IV Hydralazine brought pressure back to 120s and he stayed in the 140s with goal < 160 systolic. Cont current management. 3. Hypertroponemia-h/o mild nonobstructive CAD per cath in 2009. No active chest pain and EKG reveals no changes. Recently seen by Cardiology for this during a prior admission and troponin leak was thought to be 2/2 hypertensive heart disease. Echo at that time revealed a normal EF and no wall motion abnormalities. This is not likely related to ischemic heart disease as opposed to demand ischemia. Cardiology consulted to reassess. 4. PAF-cont amio and carvedilol. Apixaban restarted but will be held if patient decides to move forward with surgery. 5. DMII-hold metformin, ISS ordered. A1C 7.9. Ordered inpatient glycemic pharmacy consult. Glucose in goal range. DVT proph-Apixaban Full Code Dispo-likely here through the weekend. Considering lumbar surgery early next week with Dr. Centeno. Bhargavi Miranda DO [facility] Hospitalist Continued [facility] stay due to: ambulation difficulties Discharge planning: uncertain Consultants: Cardio, Ortho, Pain Current Inpatient Medications: Current Inpatient Medications Medications (Trade) Dose Ordered Sig/Juliette Route Start Time Stop Time Status Last Admin Dose Admin Amiodarone HCl (Cordarone Tab) 200 mg BID PO 09/14/16 09:00 10/14/16 08:59 09/14/16 21:02 200 MG Aspirin (Ecotrin Tab) 81 mg QAM PO 09/14/16 09:00 10/14/16 08:59 09/14/16 08:48 81 MG Carvedilol (Coreg Tab) 25 mg BIDM PO 09/14/16 08:00 10/14/16 07:59 09/14/16 17:10 25 MG Fenofibrate (Tricor Tab) 145 mg DAILY PO 09/14/16 09:00 10/14/16 08:59 09/14/16 08:46 145 MG Gabapentin (Neurontin Cap) 300 mg TID PO 09/14/16 09:00 10/14/16 08:59 09/14/16 21:03 300 MG Lidocaine (Lidoderm Patch 5%) 1 patch Q12H PRN TD 09/13/16 22:45 10/13/16 22:44 Lisinopril (Zestril Tab) 20 mg BID PO 09/14/16 09:00 10/14/16 08:59 09/14/16 21:02 20 MG Magnesium Oxide (Mag-Ox Tab) 400 mg DAILY PO 09/14/16 09:00 10/14/16 08:59 09/14/16 08:47 400 MG Nitroglycerin (Nitrostat Tab) 0.4 mg UD PRN UT 09/13/16 22:45 10/13/16 22:44 Potassium Chloride (Klor-Con M10) 20 meq DAILY PO 09/14/16 09:00 10/14/16 08:59 09/14/16 08:48 20 MEQ Rosuvastatin Calcium (Crestor Tab) 20 mg HS PO 09/14/16 21:00 10/14/16 20:59 09/14/16 21:02 20 MG Spironolactone (Aldactone Tab) 12.5 mg DAILY PO 09/14/16 09:00 10/14/16 08:59 09/14/16 08:50 12.5 MG Terazosin HCl (Hytrin Cap) 5 mg HS PO 09/14/16 21:00 10/14/16 20:59 09/14/16 21:02 5 MG Miscellaneous (Iv Fluids Completed) 1 ea PRN PRN N/A 09/13/16 23:00 09/13/17 22:59 Miscellaneous (Remove Lidoderm Patch) 1 ea Q12H PRN N/A 09/14/16 01:45 10/14/16 01:44 Insulin Aspart (novoLOG ASPART) SLIDING SCALE G... ACHS SC 09/14/16 07:00 10/14/16 06:59 09/14/16 17:11 5 UNITS Glucose (Glucose 40% Gel) 15-30 GRAMS 15 GRAMS... UD PRN PO 09/14/16 05:15 10/14/16 05:14 Glucose (Glucose Chew Tab) 4-8 Tablets 4 Tabl... UD PRN PO 09/14/16 05:15 10/14/16 05:14 Dextrose (Dextrose 50% 50ML Syringe) 25-50ML OF 50% DW IV FOR... UD PRN IV 09/14/16 05:15 10/14/16 05:14 Glucagon (Glucagon Inj) 1 mg UD PRN SQ 09/14/16 05:15 10/14/16 05:14 Hydromorphone HCl (Dilaudid Inj) 0.5 mg Q3H PRN IV 09/14/16 10:10 09/28/16 10:09 09/15/16 04:07 0.5 MG Polyethylene (Miralax Powder Packet) 17 gm DAILY PO 09/15/16 09:00 10/15/16 08:59 Hydralazine HCl (Apresoline Tab) 25 mg TID PO 09/14/16 14:00 10/14/16 13:59 09/14/16 21:03 25 MG Apixaban (Eliquis Tab) 5 mg BID PO 09/15/16 09:00 10/15/16 08:59 Acetaminophen (Tylenol Tab) 1,000 mg Q8 PO 09/15/16 06:00 10/15/16 05:59 09/15/16 05:34 1,000 MG Tramadol HCl (Ultram Tab) 50 mg Q8H PO 09/14/16 23:30 10/14/16 23:29 09/15/16 00:03 50 MG Oxycodone HCl (Roxicodone Immediate Rel Tab) 5 mg Q4H PRN PO 09/14/16 23:30 09/28/16 23:29 09/15/16 04:46 5 MG Hydralazine HCl (HydrALAZINE INJ) 10 mg NOW ONCE IV. 09/15/16 08:15 09/15/16 08:16
[2016-09-15] MEDS: ROSUVASTATIN CALCIUM 20 MG TAB PO SCH (20:51)
[2016-09-16] VITALS (9 sets, daily range): BP systolic 118–167; BP diastolic 77–99; PULSE 66–79; TEMP 36.6–36.8; O2SAT 93–97
[2016-09-16] MEDS: OXYCODONE HCL IR 5 MG TAB (IMMEDIATE RELEASE) PO PRN ×4 (03:21→16:00)
[2016-09-16] MEDS: ACETAMINOPHEN 500 MG TAB PO SCH ×3 (06:30→21:36)
[2016-09-16 06:55] LABS: HEMATOCRIT 44.3 % (42-52); MEAN CELL VOLUME 92.1 fL (80-100); MEAN CORPUSCULAR HGB CONC 33.6 g/dl (32-36); MEAN PLATELET VOLUME 10.1 fL (7.4-10.4); PLATELET COUNT 138 K/uL (130-400); RED BLOOD COUNT 4.81 M/uL (4.7-6.1); WHITE BLOOD COUNT 6.76 K/uL (4.8-10.8)
[2016-09-16 07:26] LABS: BUN/CREATININE RATIO 17.3 (10-20); CALCIUM 9.2 mg/dl (8.5-10.1); POTASSIUM 3.9 mmol/L (3.5-5.1)
[2016-09-16] MEDS: CARVEDILOL 25 MG TAB PO SCH ×2 (07:54→17:13)
[2016-09-16] MEDS: INSULIN ASPART 100 UNITS/ML 3 ML PEN SC SCH ×4 (07:58→20:20)
[2016-09-16] MEDS: TRAMADOL HCL 50 MG TAB PO SCH ×3 (07:59→23:19)
[2016-09-16] MEDS: SPIRONOLACTONE 25 MG TAB PO SCH (08:01)
[2016-09-16] MEDS: ASPIRIN 81 MG ECTAB PO SCH (08:02)
[2016-09-16] MEDS: AMIODARONE 200 MG TAB PO SCH ×2 (08:02→20:18)
[2016-09-16] MEDS: POTASSIUM CHLORIDE 10 MEQ TABCR PO SCH (08:03)
[2016-09-16] MEDS: APIXABAN 2.5 MG TAB PO SCH (08:03)
[2016-09-16] MEDS: FENOFIBRATE 145 MG TAB PO SCH (08:04)
[2016-09-16] MEDS: POLYETHYLENE (MIRALAX) 17 GM PACK PO SCH (08:04)
[2016-09-16] MEDS: GABAPENTIN 300 MG CAP PO SCH ×3 (08:04→20:17)
[2016-09-16] MEDS: LISINOPRIL 20 MG TAB PO SCH ×2 (08:05→20:17)
[2016-09-16] MEDS: MAGNESIUM OXIDE 400 MG TAB PO SCH (09:33)
--- NOTE | 2016-09-16 09:35 | CARDIOLOGY CONSULTATION ---
DATE: 09/16/2016 FOLLOW-UP VISIT SUBJECTIVE: The patient is a 71-year-old male who was admitted with severe low back discomfort with a history of multilevel spinal stenosis and herniated discs. He was seen by orthopaedics and they are considering a complex surgery. Mr. Celaya is known to use and is usually followed by Shawn Velez with a history of paroxysmal atrial fibrillation, tachybrady syndrome status post permanent pacemaker and diastolic heart failure. It appears from notes that when he goes into atrial fibrillation he decompensates into heart failure due to his diastolic dysfunction. The last time this occurred was approximately a year ago. He has been stable; however, with amiodarone. He has had no recent cardiac symptoms. He denies heart palpitations, dizziness, shortness of breath or chest pain. Other than his back pain he has no complaints today. ALLERGIES: No known medical allergies. PAST MEDICAL HISTORY: As outlined above, the patient has a history of symptomatic paroxysmal atrial fibrillation with heart failure due to diastolic dysfunction. He also has tachybrady syndrome and received a dual chamber pacemaker in 2013. In 2009, he had a cardiac catheterization that showed nonobstructive coronary artery disease. He is treated for diabetes, sleep apnea and stage III kidney disease. SOCIAL HISTORY: He is a reformed cigarette smoker, stopping several years ago. FAMILY MEDICAL HISTORY: Noncontributory. REVIEW OF SYSTEMS: A 10-point review of systems is negative except for the history of chief complaint. PHYSICAL EXAMINATION: GENERAL: He is alert and oriented in no acute distress. VITAL SIGNS: Blood pressure is 160/80. Pulse is regular at 60 beats per minute. He is afebrile. HEAD, EYES, EARS, NOSE, AND THROAT: He is normocephalic. Pupils are equal and reactive to light. Extraocular muscles are intact bilaterally. NECK: The neck veins are flat. Carotids have good upstrokes bilaterally without bruits. Thyroid is nonpalpable. RESPIRATORY: Breath sounds equal bilaterally and clear to auscultation. CARDIOVASCULAR: Heart has a regular rhythm. Normal S1, S2. No S3, S4. No cardiac rubs or murmurs. GASTROINTESTINAL: Abdomen is soft, nontender without organomegaly. EXTREMITIES: Free of edema, digit clubbing, or cyanosis. NEUROLOGIC: Grossly intact. SKIN: Warm to touch. LYMPH NODES: Negative to palpation. IMPRESSION: 1. Spinal stenosis with herniated discs and severe pain. 2. Paroxysmal atrial fibrillation. 3. Chronic diastolic heart failure. 4. Tachybrady syndrome, status post dual-chamber pacemaker. 5. Diabetes mellitus. 6. Chronic stage III kidney disease. 7. Sleep apnea. 8. Hypertension and dyslipidemia. RECOMMENDATIONS: From a cardiac standpoint, I believe the patient is optimally medically managed. His atrial arrhythmias have been well controlled with amiodarone. I believe he may proceed to surgery with an acceptable low risk of cardiovascular event. No additional cardiac testing will change that risk assessment. We will follow along with you during his hospital stay. MCKINLEY
--- NOTE | 2016-09-16 13:07 | PROGRESS NOTE ---
DATE: 09/16/2016 DATE: 09/16/2016. SUBJECTIVE: I had a long discussion with the patient today reviewing his clinical progress and lumbar spine. He has been essentially cleared for surgery. It would require lumbar decompression and fusion L2-L3, L3-L4, L4-L5, and L5-S1. Risks, benefits, pros, cons, and alternatives were outlined in detail. Risks include but not limited to from anesthesia, spinal cord process, nerve damage, blood loss requiring transfusion, infection, reoperation. Benefits would be marked improvement of his leg pain and ambulation. At this time, he is interested in surgery. We will be able to perform this next Monday. We will most likely stop the Eliquis Monday. He understands and agrees.
[2016-09-16] MEDS ORDERED: CYANOCOBALAMIN 1000 MCG/ML VIAL IM ONE (15:16)
[2016-09-16] MEDS: ERGOCALCIFEROL 50,000 INTER.UNIT CAP PO SCH (16:01)
--- NOTE | 2016-09-16 17:32 | Progress Note ---
Medicine Progress Note Date & Time of Visit: Sep 16, 2016 at 15:20. Subjective 71 yoM with known lumbar DJD and spinal stenosis previously admitted for pain control and on injections per Pain as outpatient, presents with inability to walk 2/2 weakness in his legs and pain yesterday. -weakness in legs persists -pain is controlled in his back on the scheduled TT regimen -tried to walk to the restroom with great difficulty again today -planning for surgery next Tu with Dr. Centeno -Cardiac pre-op eval today states patient is optimized for surgery at this time Objective Last 8 Hrs Date Time Temp Pulse Resp B/P Pulse Ox O2 Delivery O2 Flow Rate FiO2 09/16/16 15:00 36.6 66 18 159/98 95 Room Air 09/16/16 12:00 Room Air 09/16/16 11:30 36.8 72 18 118/77 96 09/16/16 08:00 Room Air 09/16/16 07:30 36.7 72 18 161/92 96 Physical Exam: GEN: WNWD, in no acute distress, alert and appropriate, lying in bed HEENT: NC/AT, normal sclerae CARDIO: reg rate, S1/2 heard without m/g/r LUNGS: CTA bilaterally, no crackles, rales or wheezes, good diaphragmatic excursion ABD: soft, non-tender, non-distended, no rebound or guarding, +BS EXTREMITY: RP and DP palpable 2+ bilat, no LE swelling or edema, extremities are warm and well-perfused NEURO: CN 2-12 grossly intact, sensation intact throughout lower extremities MUSC: moves all extremities equally SKIN: warm and dry Laboratory Results: 09/16/16 06:27 09/16/16 06:27 Test 09/13/16 17:00 09/13/16 20:40 09/14/16 05:00 09/16/16 06:27 Immature Granulocyte % (Auto) 0.8 % White Blood Count 7.74 K/uL (4.8-10.8) Red Blood Count 4.82 M/uL (4.7-6.1) 4.81 M/uL (4.7-6.1) Hemoglobin 15.2 g/dL (14.0-18.0) Hematocrit 44.4 % (42-52) Mean Corpuscular Volume 92.1 fL (80-100) 92.1 fL (80-100) Mean Corpuscular Hemoglobin 31.5 pg (25-34) 31.0 pg (25-34) Mean Corpuscular Hemoglobin Concent 34.2 g/dl (32-36) 33.6 g/dl (32-36) Platelet Count 168 K/uL (130-400) Mean Platelet Volume 10.6 fL (7.4-10.4) 10.1 fL (7.4-10.4) Neutrophils (%) (Auto) 63.1 % Lymphocytes (%) (Auto) 26.5 % Monocytes (%) (Auto) 8.0 % Eosinophils (%) (Auto) 1.2 % Basophils (%) (Auto) 0.4 % Neutrophils # (Auto) 4.89 K/uL (1.4-6.5) Lymphocytes # (Auto) 2.05 K/uL (1.2-3.4) Monocytes # (Auto) 0.62 K/uL (0.11-0.59) Eosinophils # (Auto) 0.09 K/uL (0-0.5) Basophils # (Auto) 0.03 K/uL (0-0.2) Immature Granulocyte # (Auto) 0.06 K/uL (0.00-0.02) Prothrombin Time 12.1 SECONDS (9.0-12.0) Prothromb Time International Ratio 1.1 (0.9-1.1) Activated Partial Thromboplast Time 26.2 SECONDS (21.0-31.0) Partial Thromboplastin Ratio 1.0 Magnesium Level 1.9 mg/dl (1.8-2.4) Total Bilirubin 0.5 mg/dl (0.2-1) Aspartate Amino Transf (AST/SGOT) 24 U/L (15-37) Alanine Aminotransferase (ALT/SGPT) 31 U/L (12-78) Alkaline Phosphatase 42 U/L (45-117) Total Protein 7.0 gm/dl (6.4-8.2) Albumin 3.8 gm/dl (3.4-5.0) Globulin 3.2 gm/dl (2.5-4.0) Albumin/Globulin Ratio 1.2 (0.9-2) Thyroid Stimulating Hormone (TSH) 1.050 uIu/ml (0.300-4.500) Urine Color YELLOW Urine Appearance CLEAR (CLEAR) Urine pH 7.0 (4.5-7.5) Urine Specific [place] 1.018 (1.000-1.030) Urine Protein NEG (NEG) Urine Glucose (UA) TRACE (NEG) Urine Ketones NEG (NEG) Urine Occult Blood NEG (NEG) Urine Nitrite NEG (NEG) Urine Bilirubin NEG (NEG) Urine Urobilinogen POS (NEG) Urine Leukocyte Esterase TRACE (NEG) Urine WBC (Auto) 1-5 /hpf (0-5) Urine RBC (Auto) 0-4 /hpf (0-4) Urine Hyaline Casts (Auto) 1-5 /lpf (0-5) Urine Epithelial Cells (Auto) 10-20 /lpf (0-5) Urine Bacteria (Auto) NEG (NEG) Estimated Average Glucose 180 mg/dl Hemoglobin A1c 7.9 % (4.5-5.6) Troponin I 0.088 ng/ml (0-0.045) RDW Standard Deviation 50.2 fL (36.4-46.3) RDW Coefficient of Variation 14.8 % (11.5-14.5) Anion Gap 7.0 mmol/L (3-11) Est Creatinine Clear Calc Drug Dose 70.7 ml/min Estimated GFR () 87.4 Estimated GFR (Non- 75.4 BUN/Creatinine Ratio 17.3 (10-20) Calcium Level 9.2 mg/dl (8.5-10.1) Vitamin B12 Level 207 pg/mL (211-911) 25-Hydroxy Vitamin D Total 18.3 ng/ml (30-100) Folate 10.75 ng/mL (>5.38) Test 09/16/16 16:01 Bedside Glucose 138 mg/dl (70-99) Last 24 Hours Test 09/15/16 16:23 09/15/16 20:09 09/16/16 06:23 09/16/16 06:27 Bedside Glucose 139 mg/dl 157 mg/dl 122 mg/dl White Blood Count 6.76 K/uL Red Blood Count 4.81 M/uL Hemoglobin 14.9 g/dL Hematocrit 44.3 % Mean Corpuscular Volume 92.1 fL Mean Corpuscular Hemoglobin 31.0 pg Mean Corpuscular Hemoglobin Concent 33.6 g/dl RDW Standard Deviation 50.2 fL RDW Coefficient of Variation 14.8 % Platelet Count 138 K/uL Mean Platelet Volume 10.1 fL Sodium Level 141 mmol/L Potassium Level 3.9 mmol/L Chloride Level 103 mmol/L Carbon Dioxide Level 31 mmol/L Anion Gap 7.0 mmol/L Blood Urea Nitrogen 17 mg/dl Creatinine 1.00 mg/dl Est Creatinine Clear Calc Drug Dose 70.7 ml/min Estimated GFR () 87.4 Estimated GFR (Non- 75.4 BUN/Creatinine Ratio 17.3 Random Glucose 128 mg/dl Calcium Level 9.2 mg/dl Vitamin B12 Level 207 pg/mL 25-Hydroxy Vitamin D Total 18.3 ng/ml Folate 10.75 ng/mL Test 09/16/16 11:18 Bedside Glucose 139 mg/dl Assessment & Plan 71 yoM with known lumbar DJD and spinal stenosis previously admitted for pain control and on injections per Pain as outpatient, presents with inability to walk 2/2 weakness in his legs and pain yesterday. 1. Lower back pain-known spinal stenosis and DJD. No changes on CT scan with chronic DJD and spinal stenosis seen. MRI contraindicated 2/2 PM. Elliquis and ASA held for upcoming procedure Tu. Cont Tylenol/Tramadol scheduled. Cont PT efforts. B12 low and 25OH low-replace with IM B12 daily for 1 week then PO, and ergocalciferol twice weekly for 6 weeks. 2. HTN-improved after addition of scheduled pain medications and hydralazine addition 25 TID 3. Hypertroponemia-h/o mild nonobstructive CAD per cath in 2009. No active chest pain and EKG reveals no changes. Recently seen by Cardiology for this during a prior admission and troponin leak was thought to be 2/2 hypertensive heart disease. Echo at that time revealed a normal EF and no wall motion abnormalities. This is not likely related to ischemic heart disease as opposed to demand ischemia. Cardiology agrees with this and believes patient is medically optimized for surgery with a small cardiac risk perioperatively. 4. PAF-cont amio and carvedilol. Apixaban/ASA held for upcoming procedure. 5. DMII-hold metformin, ISS ordered. A1C 7.9. Ordered inpatient glycemic pharmacy consult. Glucose in goal range. DVT proph-SCDs, apixiban held, will add Lovenox daily beginning tomorrow. Full Code Dispo-likely here through the weekend. Considering lumbar surgery Tues next week with Dr. Centeno. Bhargavi Miranda DO [facility] Hospitalist Continued [facility] stay due to: ambulation difficulties Discharge planning: uncertain Consultants: Cardio, Ortho, Pain Current Inpatient Medications: Current Inpatient Medications Medications (Trade) Dose Ordered Sig/Juliette Route Start Time Stop Time Status Last Admin Dose Admin Amiodarone HCl (Cordarone Tab) 200 mg BID PO 09/14/16 09:00 10/14/16 08:59 09/16/16 08:02 200 MG Aspirin (Ecotrin Tab) 81 mg QAM PO 09/14/16 09:00 10/14/16 08:59 09/16/16 08:02 81 MG Carvedilol (Coreg Tab) 25 mg BIDM PO 09/14/16 08:00 10/14/16 07:59 09/16/16 07:54 25 MG Fenofibrate (Tricor Tab) 145 mg DAILY PO 09/14/16 09:00 10/14/16 08:59 09/16/16 08:04 145 MG Gabapentin (Neurontin Cap) 300 mg TID PO 09/14/16 09:00 10/14/16 08:59 09/16/16 14:04 300 MG Lidocaine (Lidoderm Patch 5%) 1 patch Q12H PRN TD 09/13/16 22:45 10/13/16 22:44 Lisinopril (Zestril Tab) 20 mg BID PO 09/14/16 09:00 10/14/16 08:59 09/16/16 08:05 20 MG Magnesium Oxide (Mag-Ox Tab) 400 mg DAILY PO 09/14/16 09:00 10/14/16 08:59 09/16/16 09:33 400 MG Nitroglycerin (Nitrostat Tab) 0.4 mg UD PRN UT 09/13/16 22:45 10/13/16 22:44 Potassium Chloride (Klor-Con M10) 20 meq DAILY PO 09/14/16 09:00 10/14/16 08:59 09/16/16 08:03 20 MEQ Rosuvastatin Calcium (Crestor Tab) 20 mg HS PO 09/14/16 21:00 10/14/16 20:59 09/15/16 20:51 20 MG Spironolactone (Aldactone Tab) 12.5 mg DAILY PO 09/14/16 09:00 10/14/16 08:59 09/16/16 08:01 12.5 MG Terazosin HCl (Hytrin Cap) 5 mg HS PO 09/14/16 21:00 10/14/16 20:59 09/15/16 20:55 5 MG Miscellaneous (Iv Fluids Completed) 1 ea PRN PRN N/A 09/13/16 23:00 09/13/17 22:59 Miscellaneous (Remove Lidoderm Patch) 1 ea Q12H PRN N/A 09/14/16 01:45 10/14/16 01:44 Insulin Aspart (novoLOG ASPART) SLIDING SCALE G... ACHS SC 09/14/16 07:00 10/14/16 06:59 09/16/16 11:53 3 UNITS Glucose (Glucose 40% Gel) 15-30 GRAMS 15 GRAMS... UD PRN PO 09/14/16 05:15 10/14/16 05:14 Glucose (Glucose Chew Tab) 4-8 Tablets 4 Tabl... UD PRN PO 09/14/16 05:15 10/14/16 05:14 Dextrose (Dextrose 50% 50ML Syringe) 25-50ML OF 50% DW IV FOR... UD PRN IV 09/14/16 05:15 10/14/16 05:14 Glucagon (Glucagon Inj) 1 mg UD PRN SQ 09/14/16 05:15 10/14/16 05:14 Hydromorphone HCl (Dilaudid Inj) 0.5 mg Q3H PRN IV 09/14/16 10:10 09/28/16 10:09 09/15/16 13:47 0.5 MG Polyethylene (Miralax Powder Packet) 17 gm DAILY PO 09/15/16 09:00 10/15/16 08:59 09/16/16 08:04 17 GM Hydralazine HCl (Apresoline Tab) 25 mg TID PO 09/14/16 14:00 10/14/16 13:59 09/16/16 14:04 25 MG Apixaban (Eliquis Tab) 5 mg BID PO 09/15/16 09:00 10/15/16 08:59 09/16/16 08:03 5 MG Acetaminophen (Tylenol Tab) 1,000 mg Q8 PO 09/15/16 06:00 10/15/16 05:59 09/16/16 14:04 1,000 MG Tramadol HCl (Ultram Tab) 50 mg Q8H PO 09/14/16 23:30 10/14/16 23:29 09/16/16 07:59 50 MG Oxycodone HCl (Roxicodone Immediate Rel Tab) 5 mg Q4H PRN PO 09/14/16 23:30 09/28/16 23:29 09/16/16 11:54 5 MG Miscellaneous Information (Consult Glycemic Management Pharmacy) 1 ea UD N/A 09/15/16 08:54 10/15/16 08:53
[2016-09-16] MEDS: ROSUVASTATIN CALCIUM 20 MG TAB PO SCH (20:18)
[2016-09-17] VITALS (8 sets, daily range): BP systolic 123–176; BP diastolic 75–109; PULSE 60–74; TEMP 36.4–36.8; O2SAT 92–97
[2016-09-17] MEDS: OXYCODONE HCL IR 5 MG TAB (IMMEDIATE RELEASE) PO PRN ×2 (04:56→14:23)
[2016-09-17] MEDS: ACETAMINOPHEN 500 MG TAB PO SCH ×3 (06:10→21:24)
[2016-09-17] MEDS: POLYETHYLENE (MIRALAX) 17 GM PACK PO SCH (07:46)
[2016-09-17] MEDS: TRAMADOL HCL 50 MG TAB PO SCH ×3 (07:46→23:24)
[2016-09-17] MEDS: POTASSIUM CHLORIDE 10 MEQ TABCR PO SCH (07:47)
[2016-09-17] MEDS: FENOFIBRATE 145 MG TAB PO SCH (07:48)
[2016-09-17] MEDS: CARVEDILOL 25 MG TAB PO SCH ×2 (07:49→17:40)
[2016-09-17] MEDS: GABAPENTIN 300 MG CAP PO SCH ×3 (07:50→20:33)
[2016-09-17] MEDS: MAGNESIUM OXIDE 400 MG TAB PO SCH (07:50)
[2016-09-17] MEDS: SPIRONOLACTONE 25 MG TAB PO SCH (07:50)
[2016-09-17] MEDS: LISINOPRIL 20 MG TAB PO SCH ×2 (07:52→20:34)
[2016-09-17] MEDS: AMIODARONE 200 MG TAB PO SCH ×2 (07:53→20:34)
[2016-09-17] MEDS: CYANOCOBALAMIN 1000 MCG/ML VIAL IM SCH (07:55)
[2016-09-17] MEDS: INSULIN ASPART 100 UNITS/ML 3 ML PEN SC SCH ×4 (08:02→21:24)
[2016-09-17] MEDS: ENOXAPARIN 40 MG/0.4 ML SYR SQ SCH (10:26)
--- NOTE | 2016-09-17 10:35 | Progress Note ---
Medicine Progress Note Date & Time of Visit: Sep 17, 2016 at 10:32. Subjective Pt reports feeling very rested Pain is at a 3 Cannot stand at bedside 2/2 significant weakness Denies any numbness or tingling in legs and no loss of sensation Cannot urinate into the bedside urinal because of weakness-no urinary retention- -patient feels that he is completely voiding pain is worse on right hip area tolerating PO Objective Last 8 Hrs Date Time Temp Pulse Resp B/P Pulse Ox O2 Delivery O2 Flow Rate FiO2 09/17/16 09:45 94 09/17/16 07:32 36.5 68 16 170/88 94 Room Air Physical Exam: GEN: WNWD, in no acute distress, alert and appropriate, lying in bed HEENT: NC/AT, normal sclerae CARDIO: reg rate, S1/2 heard without m/g/r LUNGS: CTA bilaterally, no crackles, rales or wheezes, good diaphragmatic excursion ABD: soft, non-tender, non-distended, no rebound or guarding, +BS EXTREMITY: RP and DP palpable 2+ bilat, no LE swelling or edema, extremities are warm and well-perfused NEURO: CN 2-12 grossly intact, sensation intact throughout lower extremities MUSC: moves all extremities equally SKIN: warm and dry Laboratory Results: Test 09/17/16 07:42 Bedside Glucose 128 mg/dl (70-99) Last 24 Hours Test 09/16/16 11:18 09/16/16 16:01 09/16/16 19:50 09/17/16 07:42 Bedside Glucose 139 mg/dl 138 mg/dl 142 mg/dl 128 mg/dl Assessment & Plan 71 yoM with known lumbar DJD and spinal stenosis previously admitted for pain control and on injections per Pain as outpatient, presents with inability to walk 2/2 weakness in his legs and pain 1. Lower back pain-known spinal stenosis and DJD. No changes on CT scan with chronic DJD and spinal stenosis seen. MRI contraindicated 2/2 PM. Elliquis and ASA held for upcoming procedure Tu. Cont Tylenol/Tramadol scheduled. Cont PT efforts. B12 low and 25OH low-replace with IM B12 daily for 1 week then PO, and ergocalciferol twice weekly for 6 weeks. 2. B12 deficiency-replacement started 3. Vitamin D deficiency-replacement started. 4. HTN-not at goal--changed hydralazine to 25 QID. Cont aggressive pain control. 5. Hypertroponemia-h/o mild nonobstructive CAD per cath in 2009. No active chest pain and EKG reveals no changes. Recently seen by Cardiology for this during a prior admission and troponin leak was thought to be 2/2 hypertensive heart disease. Echo at that time revealed a normal EF and no wall motion abnormalities. This is not likely related to ischemic heart disease as opposed to demand ischemia. Cardiology agrees with this and believes patient is medically optimized for surgery with a small cardiac risk perioperatively. 6. PAF-cont amio and carvedilol. Apixaban/ASA held for upcoming procedure. 7. DMII-hold metformin, ISS ordered. A1C 7.9. Ordered inpatient glycemic pharmacy consult. Glucose in goal range. DVT proph-SCDs, Lovenox (apixaban held) Full Code Dispo-likely here through the weekend. Considering lumbar surgery Tues next week with Dr. Centeno. Bhargavi Miranda DO [facility] Hospitalist Continued [facility] stay due to: ambulation difficulties Discharge planning: uncertain Consultants: Cardio, Ortho, Pain Current Inpatient Medications: Current Inpatient Medications Medications (Trade) Dose Ordered Sig/Juliette Route Start Time Stop Time Status Last Admin Dose Admin Amiodarone HCl (Cordarone Tab) 200 mg BID PO 09/14/16 09:00 10/14/16 08:59 09/17/16 07:53 200 MG Aspirin (Ecotrin Tab) 81 mg QAM PO 09/14/16 09:00 10/14/16 08:59 Future Hold 09/16/16 08:02 81 MG Carvedilol (Coreg Tab) 25 mg BIDM PO 09/14/16 08:00 10/14/16 07:59 09/17/16 07:49 25 MG Fenofibrate (Tricor Tab) 145 mg DAILY PO 09/14/16 09:00 10/14/16 08:59 09/17/16 07:48 145 MG Gabapentin (Neurontin Cap) 300 mg TID PO 09/14/16 09:00 10/14/16 08:59 09/17/16 07:50 300 MG Lidocaine (Lidoderm Patch 5%) 1 patch Q12H PRN TD 09/13/16 22:45 10/13/16 22:44 Lisinopril (Zestril Tab) 20 mg BID PO 09/14/16 09:00 10/14/16 08:59 09/17/16 07:52 20 MG Magnesium Oxide (Mag-Ox Tab) 400 mg DAILY PO 09/14/16 09:00 10/14/16 08:59 09/17/16 07:50 400 MG Nitroglycerin (Nitrostat Tab) 0.4 mg UD PRN UT 09/13/16 22:45 10/13/16 22:44 Potassium Chloride (Klor-Con M10) 20 meq DAILY PO 09/14/16 09:00 10/14/16 08:59 09/17/16 07:47 20 MEQ Rosuvastatin Calcium (Crestor Tab) 20 mg HS PO 09/14/16 21:00 10/14/16 20:59 09/16/16 20:18 20 MG Spironolactone (Aldactone Tab) 12.5 mg DAILY PO 09/14/16 09:00 10/14/16 08:59 09/17/16 07:50 12.5 MG Terazosin HCl (Hytrin Cap) 5 mg HS PO 09/14/16 21:00 10/14/16 20:59 09/16/16 20:17 5 MG Miscellaneous (Iv Fluids Completed) 1 ea PRN PRN N/A 09/13/16 23:00 09/13/17 22:59 Miscellaneous (Remove Lidoderm Patch) 1 ea Q12H PRN N/A 09/14/16 01:45 10/14/16 01:44 Insulin Aspart (novoLOG ASPART) SLIDING SCALE G... ACHS SC 09/14/16 07:00 10/14/16 06:59 09/17/16 08:02 3 UNITS Glucose (Glucose 40% Gel) 15-30 GRAMS 15 GRAMS... UD PRN PO 09/14/16 05:15 10/14/16 05:14 Glucose (Glucose Chew Tab) 4-8 Tablets 4 Tabl... UD PRN PO 09/14/16 05:15 10/14/16 05:14 Dextrose (Dextrose 50% 50ML Syringe) 25-50ML OF 50% DW IV FOR... UD PRN IV 09/14/16 05:15 10/14/16 05:14 Glucagon (Glucagon Inj) 1 mg UD PRN SQ 09/14/16 05:15 10/14/16 05:14 Hydromorphone HCl (Dilaudid Inj) 0.5 mg Q3H PRN IV 09/14/16 10:10 09/28/16 10:09 09/15/16 13:47 0.5 MG Polyethylene (Miralax Powder Packet) 17 gm DAILY PO 09/15/16 09:00 10/15/16 08:59 09/17/16 07:46 17 GM Apixaban (Eliquis Tab) 5 mg BID PO 09/15/16 09:00 10/15/16 08:59 Future Hold 09/16/16 08:03 5 MG Acetaminophen (Tylenol Tab) 1,000 mg Q8 PO 09/15/16 06:00 10/15/16 05:59 09/17/16 06:10 1,000 MG Tramadol HCl (Ultram Tab) 50 mg Q8H PO 09/14/16 23:30 10/14/16 23:29 09/17/16 07:46 50 MG Oxycodone HCl (Roxicodone Immediate Rel Tab) 5 mg Q4H PRN PO 09/14/16 23:30 09/28/16 23:29 09/17/16 04:56 5 MG Miscellaneous Information (Consult Glycemic Management Pharmacy) 1 ea UD N/A 09/15/16 08:54 10/15/16 08:53 Ergocalciferol (Vitamin D Cap) 50,000 interunit Q3D@0900 PO 09/16/16 15:45 10/16/16 15:44 09/16/16 16:01 50,000 INTERUNIT Cyanocobalamin (Vitamin B-12 Inj) 1,000 mcg DAILY IM 09/17/16 09:00 09/24/16 08:59 09/17/16 07:55 1,000 MCG Enoxaparin Sodium (Lovenox Inj) 40 mg QAM SQ 09/17/16 09:00 10/17/16 08:59 09/17/16 10:26 40 MG Hydralazine HCl (Apresoline Tab) 25 mg QID PO 09/17/16 13:00 10/17/16 12:59
--- NOTE | 2016-09-17 15:36 | Pharmacy Progress Note ---
Glycemic: Assessment & Plan Date of Service Sep 17, 2016. Assessment & Plan The patient received 10 units of insulin on 09/15, and 13 units on 09/16. BSGs ranging 128-160 mg/dl over the past 24hrs. No changes needed unless he has changes in risk factors (e.g. steroids, surgery.) Will continue to follow. * Basal insulin: none at this time * Correctional Insulin: Novolog Correction per scale ACHS Goal Range: Low 100 mg/dL - High 140 mg/dL Correction Factor: 30 mg/dL/unit * Prandial insulin: Per carb ratio of 1 unit per 12 grams CHO consumed BSGs continue to improve, no changes needed to inpatient regimen at this time. Pharmacy will continue to monitor patient daily and write orders per [facility] inpatient glycemic control protocol. Thanks. * Please note that the plan above was derived based on current level of insulin resistance and hospital stress. These recommendations are appropriate for inpatient admission only. Plan of care upon discharge will need to be reassessed to avoid potential outpatient hypo/hyperglycemia.
--- NOTE | 2016-09-17 16:48 | DIAGNOSTIC IMAGING REPORT ---
SINGLE VIEW CHEST CLINICAL HISTORY: Dyspnea. Malaise. FINDINGS: An AP, portable, upright chest radiograph is compared to study dated 06/21/2016. The examination is degraded by portable technique and apical lordotic positioning. A 2-lead cardiac pacemaker is unchanged in position. The heart is enlarged and there is atherosclerotic calcification of the thoracic aorta. There is pulmonary vascular congestion. There is no airspace consolidation or large pleural effusion. No pneumothorax is seen. The skeletal structures appear osteopenic. The bony thorax is grossly intact. IMPRESSION: 1. Cardiomegaly and cardiac pacemaker with evidence of mild congestive failure. 2. There is no airspace consolidation or large pleural effusion. Electronically signed by: Jb Mckinney M.D. 09/17/2016 4:47 PM Dictated Date/Time: 09/17/2016 4:45 PM
[2016-09-17] MEDS ORDERED: ONDANSETRON INJ 2 MG/ML 2 ML VIAL IV PRN (17:15)
[2016-09-17] MEDS: ROSUVASTATIN CALCIUM 20 MG TAB PO SCH (20:34)
[2016-09-18] VITALS (11 sets, daily range): BP systolic 134–173; BP diastolic 67–97; PULSE 60–80; TEMP 36.3–36.9; O2SAT 93–95
[2016-09-18] MEDS ORDERED: HydrALAZINE HCL 20 MG/ML VIAL IV. PRN (04:15)
[2016-09-18] MEDS: ACETAMINOPHEN 500 MG TAB PO SCH ×3 (06:26→21:51)
[2016-09-18 07:48] LABS: HEMATOCRIT 43.7 % (42-52); MEAN CELL VOLUME 92.8 fL (80-100); MEAN CORPUSCULAR HGB CONC 33.4 g/dl (32-36); MEAN PLATELET VOLUME 10.3 fL (7.4-10.4); PLATELET COUNT 134 K/uL (130-400); RED BLOOD COUNT 4.71 M/uL (4.7-6.1); WHITE BLOOD COUNT 6.42 K/uL (4.8-10.8)
[2016-09-18] MEDS: FENOFIBRATE 145 MG TAB PO SCH (08:11)
[2016-09-18] MEDS: ENOXAPARIN 40 MG/0.4 ML SYR SQ SCH (08:12)
[2016-09-18] MEDS: POLYETHYLENE (MIRALAX) 17 GM PACK PO SCH (08:12)
[2016-09-18 08:13] LABS: BUN/CREATININE RATIO 16.2 (10-20); CALCIUM 9.1 mg/dl (8.5-10.1); MAGNESIUM 2.1 mg/dl (1.8-2.4); POTASSIUM 3.9 mmol/L (3.5-5.1)
[2016-09-18] MEDS: LISINOPRIL 20 MG TAB PO SCH ×2 (08:13→20:40)
[2016-09-18] MEDS: GABAPENTIN 300 MG CAP PO SCH ×3 (08:13→20:40)
[2016-09-18] MEDS: TRAMADOL HCL 50 MG TAB PO SCH ×2 (08:13→15:59)
[2016-09-18] MEDS: MAGNESIUM OXIDE 400 MG TAB PO SCH (08:15)
[2016-09-18] MEDS: SPIRONOLACTONE 25 MG TAB PO SCH (08:15)
[2016-09-18] MEDS: POTASSIUM CHLORIDE 10 MEQ TABCR PO SCH (08:16)
[2016-09-18] MEDS: AMIODARONE 200 MG TAB PO SCH ×2 (08:17→20:42)
[2016-09-18] MEDS: CARVEDILOL 25 MG TAB PO SCH ×2 (08:17→17:37)
[2016-09-18] MEDS: CYANOCOBALAMIN 1000 MCG/ML VIAL IM SCH (08:18)
[2016-09-18] MEDS: INSULIN ASPART 100 UNITS/ML 3 ML PEN SC SCH ×4 (08:26→20:46)
--- NOTE | 2016-09-18 11:43 | Cardiology Follow-Up ---
Subjective General Date of Service: Sep 18, 2016. Chief Complaint: follow-up back pain, preoperative cardiac evaluation Pt evaluation today including: conversation w/ patient, physical exam History of Present Illness The patient is a 71 year old male seen in cardiology follow-up with initial on station having been performed several days ago by Dr. Rodriguez of our practice. Rayray states that he feels well today. Yesterday he had a little spell with transient visual difficulty and shortness of breath. The symptoms resolved on their own. His blood pressures are under controlled at present. His only complaint at present is his ongoing back pain for which spine surgery as planned for next week. Allergies Coded Allergies: No Known Allergies (Unverified , 09/13/16) Social History Smoking Status: Former Smoker Hx Tobacco Use In Past Year?: No Hx Alcohol Use - Type And Amou: No Hx Substance Use - Type And Am: No Problem List Medical Problems: (1) Acute decompensated heart failure Status: Acute (2) Hypertensive urgency Status: Acute (3) Hypertensive urgency Status: Acute (4) Intractable low back pain Status: Acute (5) Lower back pain Status: Acute Physical Exam Vital Signs Last Vital Signs Documentation Date Time Temp Pulse Resp B/P Pulse Ox O2 Delivery O2 Flow Rate FiO2 09/18/16 08:05 36.5 60 16 150/82 93 09/18/16 08:00 Room Air Physical Exam Constitutional: Level of Distress: NAD Neck: supple Lungs: Auscultation: no wheezing, no rales/crackles, no rhonchi Cardiovascular: Heart Auscultation: RRR, no murmurs, no rubs, no gallops Extremities: no edema Assessment and Plan Assessment and Plan Summary of transthoracic echocardiogram performed 06/23/16: Normal left ventricular chamber size with moderate concentric left ventricular hypertrophy and sigmoid septum. No segmental left ventricular wall motion abnormalities Normal left ventricular systolic function, left ventricular ejection fraction 60 -65% Grade 1 diastolic dysfunction Mild aortic regurgitation Mild left atrial enlargement Impression: 71 year old male 1. Preoperative cardiac evaluation prior to post spine surgery 2. 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 Chronic diastolic heart failure with hypertensive heart disease, volume status stable. Recommendations: Overall, Reggie appears well compensated from a cardiac perspective. He had a transient episode yesterday with resolution of his symptoms, and I do not think this is medical detail representative of angina or stroke with brief short-lived symptoms. His last echocardiogram had been performed about 3 months ago in May 2016 with findings as noted above. His most recent dose of Eliquis was administered on 09/16/16 at 8:03 AM, his most recent dose of aspirin was administered on 09/16/16 at 8:02 AM. These are on hold pending spine surgery. Continue Lovenox DVT prophylaxis dose, with last dose tomorrow, hold for OR after that , surgery planned for 09/20. Laboratory Results Last 24 Hours Test 09/17/16 16:25 09/17/16 20:43 09/18/16 07:22 09/18/16 07:34 Bedside Glucose 140 mg/dl 180 mg/dl 131 mg/dl White Blood Count 6.42 K/uL Red Blood Count 4.71 M/uL Hemoglobin 14.6 g/dL Hematocrit 43.7 % Mean Corpuscular Volume 92.8 fL Mean Corpuscular Hemoglobin 31.0 pg Mean Corpuscular Hemoglobin Concent 33.4 g/dl RDW Standard Deviation 50.8 fL RDW Coefficient of Variation 14.9 % Platelet Count 134 K/uL Mean Platelet Volume 10.3 fL Sodium Level 140 mmol/L Potassium Level 3.9 mmol/L Chloride Level 104 mmol/L Carbon Dioxide Level 28 mmol/L Anion Gap 8.0 mmol/L Blood Urea Nitrogen 16 mg/dl Creatinine 1.00 mg/dl Est Creatinine Clear Calc Drug Dose 70.7 ml/min Estimated GFR () 87.4 Estimated GFR (Non- 75.4 BUN/Creatinine Ratio 16.2 Random Glucose 140 mg/dl Calcium Level 9.1 mg/dl Magnesium Level 2.1 mg/dl
--- NOTE | 2016-09-18 11:45 | PROGRESS NOTE ---
DATE: 09/18/2016 The patient continues to have back and leg pain. He is doing quite well. Otherwise, his anticoagulants have been held. We are planning for surgery Monday. We discussed the surgery and what it would involve. All questions were addressed.
--- NOTE | 2016-09-18 16:25 | Pharmacy Progress Note ---
Glycemic: Assessment & Plan Date of Service Sep 18, 2016. Assessment & Plan The patient received 18 units of insulin on 09/17. BSGs ranging 131 - 180 mg/dl over the past 24hrs. BSG's still a bit higher than goal range. Will tighten correction and carb ratio a bit, and reassess in am. * Basal insulin: none at this time * Correctional Insulin: Novolog Correction per scale ACHS Goal Range: Low 100 mg/dL - High 140 mg/dL Correction Factor: 25 mg/dL/unit * Prandial insulin: Per carb ratio of 1 unit per 10 grams CHO consumed BSGs continue to improve, no other changes needed to inpatient regimen at this time. Pharmacy will continue to monitor patient daily and write orders per [facility] inpatient glycemic control protocol. Thanks. * Please note that the plan above was derived based on current level of insulin resistance and hospital stress. These recommendations are appropriate for inpatient admission only. Plan of care upon discharge will need to be reassessed to avoid potential outpatient hypo/hyperglycemia.
[2016-09-18] MEDS: ROSUVASTATIN CALCIUM 20 MG TAB PO SCH (20:42)
[2016-09-19] VITALS (7 sets, daily range): BP systolic 137–173; BP diastolic 80–94; PULSE 63–90; TEMP 36.4–36.8; O2SAT 91–98
[2016-09-19] MEDS: TRAMADOL HCL 50 MG TAB PO SCH ×4 (03:00→22:56)
[2016-09-19] MEDS: ACETAMINOPHEN 500 MG TAB PO SCH ×3 (05:38→22:56)
--- NOTE | 2016-09-19 06:35 | DIAGNOSTIC IMAGING REPORT ---
RENAL ARTERY DUPLEX ULTRASOUND CLINICAL HISTORY: Refractory hypertension. Possible renal artery stenosis. COMPARISON STUDY: No previous studies for comparison. FINDINGS: The right kidney measures 12.1 cm in length. The left kidney measures 11.8 cm in length. There is a 15 mm left renal cyst. There is increased hepatic echogenicity, nonspecific finding most likely secondary to hepatic steatosis. The peak systolic velocity within the aorta is 72 cm/s. The peak systolic velocity within the right renal artery is 82 cm/s. The peak systolic velocity within the left renal artery is 150 cm/s. The renal veins appear patent. IMPRESSION: No evidence of renal artery stenosis. Electronically signed by: Azar Goyal M.D. 09/19/2016 6:34 AM Dictated Date/Time: 09/19/2016 6:32 AM
[2016-09-19] MEDS: LISINOPRIL 20 MG TAB PO SCH ×2 (08:23→20:39)
[2016-09-19] MEDS: POLYETHYLENE (MIRALAX) 17 GM PACK PO SCH (08:23)
[2016-09-19] MEDS: GABAPENTIN 300 MG CAP PO SCH ×3 (08:24→20:39)
[2016-09-19] MEDS: MAGNESIUM OXIDE 400 MG TAB PO SCH (08:24)
[2016-09-19] MEDS: CYANOCOBALAMIN 1000 MCG/ML VIAL IM SCH (08:24)
[2016-09-19] MEDS: FENOFIBRATE 145 MG TAB PO SCH (08:24)
[2016-09-19] MEDS: ERGOCALCIFEROL 50,000 INTER.UNIT CAP PO SCH (08:24)
[2016-09-19] MEDS: SPIRONOLACTONE 25 MG TAB PO SCH (08:25)
[2016-09-19] MEDS: POTASSIUM CHLORIDE 10 MEQ TABCR PO SCH (08:25)
[2016-09-19] MEDS: CARVEDILOL 25 MG TAB PO SCH ×2 (08:25→16:31)
[2016-09-19] MEDS: AMIODARONE 200 MG TAB PO SCH ×2 (08:25→20:38)
[2016-09-19] MEDS: INSULIN ASPART 100 UNITS/ML 3 ML PEN SC SCH ×4 (08:31→20:44)
[2016-09-19] MEDS: ENOXAPARIN 40 MG/0.4 ML SYR SQ SCH (09:00)
--- NOTE | 2016-09-19 10:31 | Pharmacy Progress Note ---
Glycemic Control: Progress Nt Date of Service Sep 19, 2016. Scope Glycemic Pharmacist consulted by Dr Miranda on 09/15/16 for glycemic control and to write orders per [facility] inpatient glycemic control protocol. Objective Accuchecks BSG (last 24hrs): Test 09/18/16 11:31 09/18/16 17:02 09/18/16 19:32 09/19/16 07:33 Bedside Glucose 173 mg/dl (70-99) 123 mg/dl (70-99) 158 mg/dl (70-99) 114 mg/dl (70-99) HbA1c: Test 09/14/16 05:00 Hemoglobin A1c 7.9 % (4.5-5.6) H Recent Pertinent Medications Outpatient Anti-diabetic Regimen: * Metformin 1,000mg PO BIDM The patient is currently receiving: * Basal insulin: N/A, none ordered * Correctional Insulin: Novolog Correction per scale ACHS Goal Range: Low 100 mg/dL - High 140 mg/dL Correction Factor: 25 mg/dL/unit * Prandial insulin: Per carb ratio of 1 unit per 10 grams CHO consumed * Oral Agents: On hold for admission Assessment & Plan ASSESSMENT: * Pt has been receiving/requiring ~15-20 units of insulin per day for adequate glycemic control * BSGs ranging 114-173mg/dl over the past 24hrs * AM fasting BSG is in goal range this AM at 114mg/dl --> considered starting basal insulin since regimen is only bolus insulin, however, pt scheduled for surgery tomorrow and likely will be NPO. Will start basal insulin post- operatively if warranted. Likely, patient will receive high dose dxm intra-op and post-op x 3-5 doses which will deteriorate current glycemic control. Lantus may be needed for long acting RTC dosing of DXM. * BSGs tend to rise post-prandially --> will tighten CR slightly * ADA & AACE recommend a goal blood sugar range 140-180 mg/dl for the majority of critically ill & non-critically ill patients. However, more stringent targets may be selected in individual cases. Will utilize more stringent goal range of 100-140mg/dl based on age and baseline glycemic control. Tight glycemic control will be warranted post-operatively for facilitate infection/ wound healing. PLAN FOR INPATIENT GLYCEMIC CONTROL: * Continue to hold outpatient oral diabetes medications * Start Basal insulin with Lantus for persistent hyperglycemia. Most likely will be needed post-operatively tomorrow. No basal insulin today as pt may be NPO after midnight and BSGs adequately controlled w/o it * BSG > 180mg/dl * NOVOLOG per scale ACHS or Q6hrs while NPO * Goal Range: Low 100 mg/dL - High 140 mg/dL * Correction Factor: 25 mg/dL/unit * Tighten Nutritional / Prandial insulin per carb ratio of 1 unit per 8 grams CHO consumed (was 10) RECOMMENDATIONS FOR DISCHARGE: * 71yo T2DM male with near adequate degree of outpatient control on oral antidiabetic agent monotherapy. * Recent A1c = 7.9% on 09/14/16 * Goal A1c ~ 7% based on age and comorbidities * Additional agent may be needed at discharge to achieve this * Additional agent should be chosen based on patient specific factors including efficacy, hypo risk, weight gain/loss, side effects, cost * May consider metformin PLUS: * GLP-1 RA: high efficacy, low hypo risk, weight loss, significant GI side effects (titrate low and slow), high cost * SGLT-2i: intermediate efficacy, low hypo risk, weight loss, /dehydration side effects, positive cardiac effects, high cost * DPP-4i: intermediate efficacy (not efficacious for long-standing DM), low hypo risk, weight neutral, rare side effects (well tolerated), high cost * TZD: high efficacy, low hypo risk, weight gain, significant side effects ( edema, HF, fxs), low cost * Basal insulin: high efficacy, hypo risk, weight gain, well tolerated, cost dependent on agent chosen (NPH low cost, all others high cost) * B12 supplementation may be necessary with [facility] metformin use * Support Patient Self-Management * Healthy Lifestyle (diet, exercise, and smoking cessation) * Disease self-management (SMBG) * Prevention of complications (BP, Lipid goals, Immunizations) * Consider outpatient Diabetes Self-Management Education & Support * Please note that the plan above was derived based on current level of insulin resistance and hospital stress. These recommendations are appropriate for inpatient admission only. Plan of care upon discharge will need to be reassessed to avoid potential outpatient hypo/hyperglycemia. Thank you.
--- NOTE | 2016-09-19 14:32 | Progress Note ---
Progress Note Date of Service Sep 19, 2016. Progress Note Patient is a 71 year old M scheduled for L2-S1 PSIF with Dr Centeno. The patient has had no previous back surgeries. 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 He also has diastolic heart failure, although he feels his edema and breathing are "doing pretty well right now." Cardiology feels that the patient's CHF is medically optimized, and they are holding his Eliquis and ASA which bridging with Lovenox for the planned procedure. Labs and studies were unremarkable. Exam showed severe low back pain when extending neck, but airway was otherwise reassuring. ECG showed an A paced rhythm with 100% paced beats. The patient is unaware if he has any underlying intrinsic heart rhythm. The pacer is a Medtronic device. Will plan for GA with possible invasive BP monitoring at the discretion of the attending anesthesiologist. Zoll pads and a magnet will be available given the questionable nature of the patient's anvik heart rhythm. Apparently the patient does decompensate from a CHF standpoint when AFib is allowed to persist and so Zoll pads would be of use here incase of arrhythmia as well. I have ordered a T&S given the extensive nature of the procedure. A T&C can be sent tomorrow in the event that it is needed. Risks and alternatives discussed, consent obtained.
--- NOTE | 2016-09-19 15:04 | Cardiology Follow-Up ---
Subjective General Date of Service: Sep 19, 2016. Chief Complaint: follow-up back pain, preoperative cardiac evaluation Pt evaluation today including: conversation w/ patient, physical exam History of Present Illness The patient is a 71 year old male seen in follow-up. Patient denies chest discomfort, denies shortness of breath, denies visual changes. He continues to have pain in his low back and legs. He attempted to get up and walk with a walker and had debilitating low back pain that radiated to his legs. He is no longer on telemetry. Allergies Coded Allergies: No Known Allergies (Unverified , 09/13/16) Social History Smoking Status: Former Smoker Hx Tobacco Use In Past Year?: No Hx Alcohol Use - Type And Amou: No Hx Substance Use - Type And Am: No Problem List Medical Problems: (1) Acute decompensated heart failure Status: Acute (2) Hypertensive urgency Status: Acute (3) Hypertensive urgency Status: Acute (4) Intractable low back pain Status: Acute (5) Lower back pain Status: Acute Physical Exam Vital Signs Last Vital Signs Documentation Date Time Temp Pulse Resp B/P Pulse Ox O2 Delivery O2 Flow Rate FiO2 09/19/16 13:50 67 137/80 09/19/16 09:46 91 Room Air 09/19/16 07:50 36.4 18 Physical Exam Constitutional: Level of Distress: NAD Neck: supple Lungs: Auscultation: no wheezing, no rales/crackles, no rhonchi Cardiovascular: Heart Auscultation: RRR, no murmurs, no rubs, no gallops Extremities: no edema Assessment and Plan Assessment and Plan Summary of transthoracic echocardiogram performed 06/23/16: Normal left ventricular chamber size with moderate concentric left ventricular hypertrophy and sigmoid septum. No segmental left ventricular wall motion abnormalities Normal left ventricular systolic function, left ventricular ejection fraction 60 -65% Grade 1 diastolic dysfunction Mild aortic regurgitation Mild left atrial enlargement Impression: 71 year old male 1. Preoperative cardiac evaluation prior to post spine surgery 2. 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 Chronic diastolic heart failure with hypertensive heart disease, volume status stable. 4. Underlying history of hypertension, perhaps hypertensive heart disease Recommendations: Patient is well compensated from a cardiac perspective, would proceed with spine surgery without further cardiac testing. His blood pressures have been running a little bit high with any readings including systolic blood pressures in the 150 range. This may be due to his underlying pain, and I'm hesitant to alter his chronic antihypertensive medication regimen right before surgery. Will monitor BP post op and make adjustments as necessary. His most recent dose of Eliquis was administered on 09/16/16 at 8:03 AM, his most recent dose of aspirin was administered on 09/16/16 at 8:02 AM. These are on hold pending spine surgery. Continue Lovenox DVT prophylaxis dose, with last dose tomorrow, hold for OR after that , surgery planned for Monday, 09/20. Laboratory Results Last 24 Hours Test 09/18/16 17:02 09/18/16 19:32 09/19/16 07:33 Bedside Glucose 123 mg/dl 158 mg/dl 114 mg/dl
--- NOTE | 2016-09-19 19:03 | Progress Note ---
Internal Med Progress Note Date of Service: Sep 19, 2016. Provider Documentation: SUBJECTIVE: having severe back pain but controlled with pain meds denies chest pain or sob afebrile no nausea awaiting surgery in am OBJECTIVE: Vital Signs-as noted below Exam: General-alert and oriented x 3 Not in distress ENT-normal hearing Neck-no neck masses Lungs-cta b/l no wheezing no crackles Heart-s1 and s2 heard regular rate and rhythm no murmurs' Abdomen-soft bowel sounds present non tender no distension Extremities-no edema no erythema Neuro-alert and awake moves extremities Lab data as noted below. ASSESSMENT & PLAN: 71 yoM with known lumbar DJD and spinal stenosis previously admitted for pain control and on injections per Pain as outpatient, presents with inability to walk 2/2 weakness in his legs and pain 1. Lower back pain-known spinal stenosis and DJD. Plan for lumbar decompression and fusion surgery in am. Elliquis and ASA held for upcoming procedure . pain control. 2. B12 deficiency-replacement started> f/u with pcp. 3. Vitamin D deficiency-replacement started. 4. HTN-not at goal--changed hydralazine to 25 QID. Also on lisinopril, Coreg, Hytrin and spironolactone. Will monitor. 5. Hypertroponemia-h/o mild nonobstructive CAD per cath in 2009. Asymptomatic and EKG reveals no changes. Recent admission had troponin leak and was thought to be 2/2 hypertensive heart disease. Echo at that time revealed a normal EF and no wall motion abnormalities and thought to be from supply demand. Seen by Cardiology and ok for surgery with acceptable risk,. 6. PAF-On amio and carvedilol. Apixaban/ASA held for upcoming procedure.Will monitor. 7. DMII-holding metformin,On ISS.. A1C 7.9. Appreciate pharmacy consult. DVT proph-SCDs, Lovenox (apixaban held). Full Code DISPOSITION await back surgery pt/ot social service for d/c planing Vital Signs: Date Time Temp Pulse Resp B/P Pulse Ox O2 Delivery O2 Flow Rate FiO2 09/19/16 16:00 Room Air 09/19/16 15:09 36.8 69 18 152/88 93 Room Air 09/19/16 13:50 67 137/80 09/19/16 13:37 90 98 09/19/16 09:46 91 Room Air 09/19/16 08:00 Room Air 09/19/16 07:50 36.4 64 18 156/94 91 Room Air 09/19/16 04:00 36.7 63 20 155/83 93 Room Air 09/18/16 23:46 36.7 71 20 157/91 93 Room Air 09/18/16 22:44 94 Room Air 09/18/16 20:17 36.9 60 20 147/67 94 Room Air Lab Results: Results Past 24 Hours Test 09/18/16 19:32 09/19/16 07:33 09/19/16 16:46 Range/Units Bedside Glucose 158 114 125 70-99 mg/dl
[2016-09-19] MEDS: ROSUVASTATIN CALCIUM 20 MG TAB PO SCH (20:38)
[2016-09-19] MEDS: OXYCODONE HCL IR 5 MG TAB (IMMEDIATE RELEASE) PO PRN (20:43)
[2016-09-20 00:17] VITALS: BP 138/83; PULSE 65; TEMP 36.7; O2SAT 93
[2016-09-20] MEDS: ACETAMINOPHEN 500 MG TAB PO SCH ×2 (05:38→14:00)
[2016-09-20] MEDS ORDERED: DC PCA SCH (06:00)
[2016-09-20 07:28] VITALS: BP 158/88; PULSE 61; TEMP 36.8; O2SAT 97
[2016-09-20] MEDS: TRAMADOL HCL 50 MG TAB PO SCH (07:30)
[2016-09-20] MEDS: CARVEDILOL 25 MG TAB PO SCH ×2 (07:32→17:00)
[2016-09-20] MEDS: POTASSIUM CHLORIDE 10 MEQ TABCR PO SCH (07:33)
[2016-09-20] MEDS: MAGNESIUM OXIDE 400 MG TAB PO SCH (07:33)
[2016-09-20] MEDS: AMIODARONE 200 MG TAB PO SCH ×2 (07:33→21:00)
[2016-09-20] MEDS: SPIRONOLACTONE 25 MG TAB PO SCH (07:33)
[2016-09-20] MEDS: FENOFIBRATE 145 MG TAB PO SCH (07:34)
[2016-09-20] MEDS: GABAPENTIN 300 MG CAP PO SCH ×2 (07:34→14:00)
[2016-09-20] MEDS: POLYETHYLENE (MIRALAX) 17 GM PACK PO SCH (07:34)
[2016-09-20] MEDS: LISINOPRIL 20 MG TAB PO SCH ×2 (07:34→21:00)
[2016-09-20] MEDS: INSULIN ASPART 100 UNITS/ML 3 ML PEN SC SCH ×4 (07:42→21:00)
[2016-09-20] MEDS: CYANOCOBALAMIN 1000 MCG/ML VIAL IM SCH (07:46)
[2016-09-20] MEDS ORDERED: MIDAZOLAM HCL 1 MG/ML 2ML VIAL ONE ×2 (09:54→14:14)
[2016-09-20] MEDS ORDERED: FENTANYL CITRATE INJ 50 MCG/1 ML 2 ML VIAL ONE (09:54)
--- NOTE | 2016-09-20 11:32 | History & Physical Bridge Note ---
H&P Re-Evaluation Bridge Note: I have examined the patient, reviewed the History & Physical and in the interval since the performance of the History & Physical I have noted the following changes of clinical significance: No changes noted
[2016-09-20] MEDS ORDERED: ATROPINE SULFATE 0.1 MG/ML 5ML SYR IV PRN ×2 (13:30→17:00)
[2016-09-20] MEDS ORDERED: ONDANSETRON INJ 2 MG/ML 2 ML VIAL IV PRN ×3 (13:30→17:15)
[2016-09-20] MEDS ORDERED: EpHEDrine SULFATE INJ 50 MG/ML AMP IV PRN ×2 (13:30→17:00)
[2016-09-20] MEDS ORDERED: PHENYLEPHRINE 100MCG/ML 5ML SYR IV PRN (13:30)
[2016-09-20] MEDS ORDERED: HYDROmorphone INJ 2 MG/ML SYR/VIAL IV PRN (13:30)
[2016-09-20] MEDS ORDERED: ONDANSETRON INJ 2 MG/ML 2 ML VIAL ONE (13:45)
[2016-09-20] MEDS ORDERED: PROPOFOL IV EMULSION 10 MG/ML 20 ML VIAL IV ONE (13:45)
[2016-09-20] MEDS ORDERED: ROCURONIUM BROMIDE 10 MG/ML 5 ML VIAL ONE ×2 (13:45→16:15)
[2016-09-20] MEDS ORDERED: LIDOCAINE HCL 2% 2 ML VIAL (20MG/ML) ONE (13:45)
[2016-09-20] MEDS ORDERED: BUPIVACAINE/EPINEPHRINE 0.5% MPF 1:200,000 30 ML VIAL ONE (14:09)
[2016-09-20] MEDS ORDERED: SODIUM CHLORIDE 0.9% PF 50 ML VIAL ONE (14:09)
[2016-09-20] MEDS ORDERED: BACITRACIN 50000 UNIT VIAL ONE (14:09)
[2016-09-20] MEDS ORDERED: NURSING VERBAL MED ORDER ONE (14:30)
[2016-09-20] MEDS ORDERED: CEFAZOLIN IV 2,000 MG/60 ML D5W IV ONE (14:32)
--- NOTE | 2016-09-20 14:35 | Pharmacy Progress Note ---
Glycemic Control: Progress Nt Date of Service Sep 20, 2016. Scope Glycemic Pharmacist consulted by Dr Miranda on 09/15/16 for glycemic control and to write orders per [facility] inpatient glycemic control protocol. Objective Accuchecks BSG (last 24hrs): Test 09/19/16 16:46 09/19/16 20:25 09/20/16 07:40 09/20/16 11:31 Bedside Glucose 125 mg/dl (70-99) 169 mg/dl (70-99) 119 mg/dl (70-99) 112 mg/dl (70-99) HbA1c: Test 09/14/16 05:00 Hemoglobin A1c 7.9 % (4.5-5.6) H Recent Pertinent Medications Outpatient Anti-diabetic Regimen: * Metformin 1,000mg PO BIDM The patient is currently receiving: * Basal insulin: N/A, none ordered * Correctional Insulin: Novolog Correction per scale ACHS Goal Range: Low 110 mg/dL - High 140 mg/dL Correction Factor: 25 mg/dL/unit * Prandial insulin: Per carb ratio of 1 unit per 10 grams CHO consumed * Oral Agents: On hold for admission Assessment & Plan ASSESSMENT: * Pt has been receiving/requiring ~15-20 units of insulin per day for adequate glycemic control. * BSGs ranging 112-169mg/dl over the past 24hrs * Anticipate glycemic control to possibly deteriorate over the next 24hrs d/t increasing stressors/risk factors for insulin resistance * Pt undergoing extensive lumbar spinal surgery today * Will start basal insulin post-operatively if warranted. Likely, patient will receive high dose dxm intra-op and post-op x 3-5 doses which will deteriorate current glycemic control. Lantus may be needed for long acting RTC dosing of DXM. * Will tighten bolus insulin to combat post-operative hyperglycemia. * ADA & AACE recommend a goal blood sugar range 140-180 mg/dl for the majority of critically ill & non-critically ill patients. However, more stringent targets may be selected in individual cases. Will utilize more stringent goal range of 110-140mg/dl based on age and baseline glycemic control. Tight glycemic control will be warranted post-operatively for facilitate infection/ wound healing. PLAN FOR INPATIENT GLYCEMIC CONTROL: * Continue to hold outpatient oral diabetes medications * Start Basal insulin with Lantus for persistent hyperglycemia. Most likely will be needed post-operatively and if steroids are given. * Give Lantus 10 units SQ BID if BSG > 180mg/dl * Empirically tighten Novolog per scale ACHS or Q6hrs while NPO * Goal Range: Low 110 mg/dL - High 140 mg/dL * Correction Factor: 20 mg/dL/unit (was 25) * Tighten Nutritional / Prandial insulin per carb ratio of 1 unit per 8 grams CHO consumed (was 10) RECOMMENDATIONS FOR DISCHARGE: * 71yo T2DM male with near adequate degree of outpatient control on oral antidiabetic agent monotherapy. * Recent A1c = 7.9% on 09/14/16 * Goal A1c ~ 7% based on age and comorbidities * Additional agent may be needed at discharge to achieve this * Additional agent should be chosen based on patient specific factors including efficacy, hypo risk, weight gain/loss, side effects, cost * May consider metformin PLUS: * GLP-1 RA: high efficacy, low hypo risk, weight loss, significant GI side effects (titrate low and slow), high cost * SGLT-2i: intermediate efficacy, low hypo risk, weight loss, /dehydration side effects, positive cardiac effects, high cost * DPP-4i: intermediate efficacy (not efficacious for long-standing DM), low hypo risk, weight neutral, rare side effects (well tolerated), high cost * TZD: high efficacy, low hypo risk, weight gain, significant side effects ( edema, HF, fxs), low cost * Basal insulin: high efficacy, hypo risk, weight gain, well tolerated, cost dependent on agent chosen (NPH low cost, all others high cost) * B12 supplementation may be necessary with [facility] metformin use * Support Patient Self-Management * Healthy Lifestyle (diet, exercise, and smoking cessation) * Disease self-management (SMBG) * Prevention of complications (BP, Lipid goals, Immunizations) * Consider outpatient Diabetes Self-Management Education & Support * Please note that the plan above was derived based on current level of insulin resistance and hospital stress. These recommendations are appropriate for inpatient admission only. Plan of care upon discharge will need to be reassessed to avoid potential outpatient hypo/hyperglycemia. Thank you.
[2016-09-20] MEDS ORDERED: GLYCOPYRROLATE INJ 0.2 MG/ML VIAL ONE (16:15)
[2016-09-20] MEDS ORDERED: DEXAMETHASONE SOD INJ 4 MG/ML VIAL ONE (16:15)
[2016-09-20] MEDS ORDERED: NEOSTIGMINE METHYLSULFATE 1 MG/ML 10ML VIAL ONE (16:15)
[2016-09-20] MEDS ORDERED: PHENYLEPHRINE 100MCG/ML 5ML SYR ONE (16:15)
[2016-09-20] MEDS ORDERED: HYDROmorphone INJ 2 MG/ML SYR/VIAL ONE (16:18)
[2016-09-20] MEDS ORDERED: PHENYLEPHRINE HCL INJ 10 MG/ML VIAL ONE (16:33)
[2016-09-20] MEDS ORDERED: ALBUMIN HUMAN 5% 12.5 GM/250 ML VIAL IV ONE (16:41)
[2016-09-20] MEDS ORDERED: PROMETHAZINE HCL INJ 6.25 MG in SODIUM CHLORIDE 0.9% 50ML 50 ML IV PRN (17:00)
[2016-09-20] MEDS ORDERED: HYDROmorphone INJ 1 MG/ML SYR IV PRN (17:00)
[2016-09-20] MEDS ORDERED: FLOSEAL HEMOSTATIC MATRIX 10ML TOP ONE (17:00)
[2016-09-20] MEDS: SODIUM CHLORIDE 0.9% 1000ML 1,000 ML IV SCH (17:04)
[2016-09-20] MEDS ORDERED: SODIUM CHLORIDE 0.9% 1000ML 1,000 ML IV SCH (17:04)
--- NOTE | 2016-09-20 17:04 | [facility] Post Operative Brief Note ---
Immediate Operative Summary Operative Date Sep 20, 2016. Pre-Operative Diagnosis Spinal stenosis, most likely acute herniated nucleus pulposus Post-Operative Diagnosis Same as pre-operative diagnosis Procedure(s) Performed L2-S1 Decompression, Posterior Spinal Fusion, Instrumentation, Bone Morphogenetic Protein Surgeon Dr. Stephen Centeno Terrazzo Polisher Surgeon(s) Xin Unger PA-C Estimated Blood Loss 450ml Findings stenosis/hnp Specimens None per surgeon
[2016-09-20] MEDS ORDERED: LARYING-O-JET KIT (LTA) EXT ONE ×2 (17:06)
[2016-09-20] MEDS ORDERED: hydrOXYzine HCL 25 MG TAB PO PRN (17:15)
[2016-09-20] MEDS ORDERED: ACETAMINOPHEN IV 100 ML IV PRN (17:15)
[2016-09-20] MEDS ORDERED: LORAZEPAM INJ 0.5 MG in SYRINGE 0.75 ML IV PRN (17:15)
[2016-09-20] MEDS ORDERED: LORAZEPAM 0.5 MG TAB PO PRN (17:15)
[2016-09-20] MEDS ORDERED: FAMOTIDINE 20 MG TAB PO PRN (17:15)
[2016-09-20] MEDS ORDERED: BISACODYL 10 MG SUPP PR PRN (17:15)
[2016-09-20] MEDS ORDERED: SOD PHOSPHATE/SOD BIPHOSPHATE ENEMA 132 ML BTL PR PRN (17:15)
[2016-09-20] MEDS ORDERED: NALOXONE HCL 0.4 MG/1 ML VIAL/CARP IV PRN ×2 (17:15)
[2016-09-20] MEDS ORDERED: DO NOT ADMINISTER FLU VACCINE PRN ×3 (17:15)
[2016-09-20] MEDS ORDERED: METOCLOPRAMIDE HCL INJ 5 MG/ML 2 ML VIAL IV PRN (17:15)
[2016-09-20] MEDS ORDERED: PROMETHAZINE HCL INJ 12.5 MG in SODIUM CHLORIDE 0.9% 50ML 50 ML IV PRN (17:15)
[2016-09-20] MEDS ORDERED: DO NOT ADMINISTER PNEUMOCOCCAL VACCINE PRN ×2 (17:15)
[2016-09-20] MEDS ORDERED: ALUMINUM/MAGNESIUM SUSP 30 ML UDC PO PRN (17:15)
[2016-09-20] MEDS ORDERED: HYDROmorphone HCL 0.5MG/ML 50 ML CASSETTE IV PRN (17:15)
[2016-09-20] MEDS ORDERED: ACETAMINOPHEN 500 MG TAB PO PRN (17:15)
[2016-09-20] MEDS ORDERED: MAGNESIUM HYDROXIDE SUSP 30 ML UDC PO PRN (17:15)
--- NOTE | 2016-09-20 17:16 | DIAGNOSTIC IMAGING REPORT ---
INTRAOPERATIVE RADIOGRAPHS CLINICAL HISTORY: L2-S1 spinal fusion. Fluoroscopy time: 23 seconds. FINDINGS: 2 spot fluoroscopic views of the lumbar spine are presented. There are changes from laminectomy and posterior fusion from L2 to S1. Interpedicular screws are present at all levels. The orthopedic hardware appears intact. IMPRESSION: Intraoperative images from L2 -S1 spinal fusion as above. Electronically signed by: Jb Mckinney M.D. 09/20/2016 5:15 PM Dictated Date/Time: 09/20/2016 5:14 PM
[2016-09-20] MEDS ORDERED: HYDROmorphone HCL 0.5MG/ML 50 ML CASSETTE ONE (17:37)
--- NOTE | 2016-09-20 17:47 | Progress Note ---
Internal Med Progress Note Date of Service: Sep 20, 2016. Provider Documentation: SUBJECTIVE: sitting on the chair comfortably afebrile denies nausea no chest pains awaiting for surgery. OBJECTIVE: Vital Signs-as noted below Exam: General-alert and oriented x 3 Not in distress ENT-normal hearing Neck-no neck masses Lungs-cta b/l no wheezing no crackles Heart-s1 and s2 heard regular rate and rhythm no murmurs' Abdomen-soft bowel sounds present non tender no distension Extremities-no edema no erythema Neuro-alert and awake moves extremities Lab data as noted below. ASSESSMENT & PLAN: 71 yoM with known lumbar DJD and spinal stenosis previously admitted for pain control and on injections per Pain as outpatient, presents with inability to walk 2/2 weakness in his legs and pain 1. Lower back pain-known spinal stenosis and DJD. Plan for lumbar decompression and fusion surgery today. Elliquis and ASA held for upcoming procedure . pain control.Post op management as per ortho. 2. B12 deficiency-replacement started> f/u with pcp. 3. Vitamin D deficiency-replacement started. 4. HTN-not at goal--changed hydralazine to 25 QID. Also on lisinopril, Coreg, Hytrin and spironolactone. iv hydralazine prn.Will monitor. 5. Hypertroponemia-h/o mild nonobstructive CAD per cath in 2009. Asymptomatic and EKG reveals no changes. Recent admission had troponin leak and was thought to be 2/2 hypertensive heart disease. Echo at that time revealed a normal EF and no wall motion abnormalities and thought to be from supply demand. Seen by Cardiology and ok for surgery with acceptable risk,. 6. PAF-On carvedilol. Apixaban/ASA held for upcoming procedure.Will monitor. 7. DMII-holding metformin,On ISS.. A1C 7.9. Appreciate pharmacy consult. DVT proph-SCDs, Lovenox (apixaban held). Full Code DISPOSITION pt/ot social service for d/c planing Vital Signs: Date Time Temp Pulse Resp B/P Pulse Ox O2 Delivery O2 Flow Rate FiO2 09/20/16 13:58 36.6 60 16 187/92 96 Room Air 09/20/16 08:00 Room Air 09/20/16 07:28 36.8 61 18 158/88 97 Room Air 09/20/16 00:17 36.7 65 20 138/83 93 Room Air 09/20/16 00:00 Room Air 09/19/16 20:36 75 173/94 95 Room Air 09/19/16 20:00 Room Air Lab Results: Results Past 24 Hours Test 09/19/16 20:25 09/20/16 07:40 09/20/16 11:31 Range/Units Bedside Glucose 169 119 112 70-99 mg/dl
[2016-09-20] MEDS: FENTANYL CITRATE INJ 50 MCG/1 ML 2 ML VIAL IV PRN ×3 (17:55→18:05)
--- NOTE | 2016-09-20 19:01 | OPERATIVE REPORT ---
DATE OF OPERATION: 09/20/2016 PREOPERATIVE DIAGNOSIS: Spinal stenosis, herniated nucleus pulposus. POSTOPERATIVE DIAGNOSIS: Same. PROCEDURES PERFORMED: 1. Lumbar decompression, medial facetectomy and foraminotomy L2-3, L3-4, L4-5, L5-S1. 2. Excision of herniated fragment L2-L3. 3. Posterior spinal fusion L2-S1. 4. Placement of posterior segmental instrumentation using Orthros rods and screws as well as crosslink, L2-S1. 5. Placement of Infuse collagen sponge combined with Mastergraft in the posterior gutters. 6. Placement of locally harvested morcellized autograft in the posterior gutters. SURGEON: Dr. Stephen Centeno. SKIN DRIER: Xin Unger PA-C. Due to the complex nature of the procedure, the entire surgery was performed with the operational assistance of NAMRATA Palmer. The magistrate assistant, under direct supervision, was involved in the actual performance of all aspects of the surgical procedure including hemostasis, tissue retraction and incision, instrument management, patient positioning, and wound closure. ANESTHESIA: General. DISPOSITION: The patient awakened and taken to PACU in stable condition. HISTORY OF PATIENT'S PROBLEMS: This is a 71-year-old male that presents with above-mentioned diagnosis. After failing an extensive course of nonoperative care, elected to undergo the above-mentioned procedure. Risks, benefits, pros, cons, and alternatives were outlined in detail preoperatively. PROCEDURE IN DETAIL: The patient was met with preoperatively, the case discussed and all questions were addressed. At that point the patient was taken back to operative suite and after undergoing successful general intubation by the department of anesthesia, was placed in prone position on Juan table atop a Zoltan frame. All bony prominences were well padded and the eyes were inspected to ensure there was no external pressure placed upon them. At this point, lumbar spine was prepped and draped in normal sterile fashion. Sharp dissection with the assistance of Bovie cautery was performed down to and exposing the lamina and transverse processes of L2, L3, L4, L5 and sacral ala bilaterally. From a caudal to cephalad fashion, laminectomy, medial facetectomies of 5, 4, 3 and 2 was performed, addressing severe lateral recess foraminal disease as well as a massive disc herniation at L3-L4 on the right. I performed a partial discectomy at this level as well. After this was complete, pedicle screws were then placed in L2, L3, L4, L5 and S1 levels bilaterally with the assistance of fluoroscopy and the appropriate size rods locked into position. The transverse processes of L2, L3, L4, L5 and sacral ala were then burred to subcortical bleeding bone. Infuse collagen sponge combined with Mastergraft and locally harvested morcellized autograft was placed in the posterior gutters. A 7 flat MARIE drain was inserted. Incision was closed with 1-0 Vicryl in the fascia, 2-0 Vicryl subcutaneously, 4-0 Monocryl for final skin closure. Steri-Strips and sterile dressing placed. The patient was awakened and taken to PACU in stable condition. I attest to the content of the Intraoperative Record and any orders documented therein. Any exceptio ns are noted below.
--- NOTE | 2016-09-20 19:18 | Anesthesiology Progress Note ---
Anesthesia Post Op Note Date & Time Sep 20, 2016 at 19:17 Vital Signs Pain Intensity: 4 Vital Signs Past 12 Hours Date Time Temp Pulse Resp B/P Pulse Ox O2 Delivery O2 Flow Rate FiO2 09/20/16 19:15 36.7 60 20 125/73 96 Nasal Cannula 4 09/20/16 19:05 36.7 60 20 125/73 96 Nasal Cannula 4 09/20/16 18:55 36.7 60 20 129/81 96 Nasal Cannula 4 09/20/16 18:45 36.7 60 20 116/70 93 Nasal Cannula 4 09/20/16 18:35 36.7 63 20 117/78 97 Nasal Cannula 4 09/20/16 18:25 36.7 60 20 126/74 97 Nasal Cannula 4 09/20/16 18:15 60 20 131/84 93 Nasal Cannula 4 09/20/16 18:05 61 20 133/72 98 Nasal Cannula 4 09/20/16 17:55 60 20 133/82 98 Nasal Cannula 4 09/20/16 17:45 61 20 133/84 98 Mask 10 09/20/16 17:35 61 20 115/70 98 Mask 10 09/20/16 17:29 36.5 73 20 144/84 97 Mask 10 09/20/16 13:58 36.6 60 16 187/92 96 Room Air 09/20/16 08:00 Room Air 09/20/16 07:28 36.8 61 18 158/88 97 Room Air Notes Mental Status: alert / awake / arousable, participated in evaluation Pt Amnestic to Procedure: Yes Nausea / Vomiting: adequately controlled Pain: adequately controlled Airway Patency, RR, SpO2: stable & adequate BP & HR: stable & adequate Hydration State: stable & adequate Anesthetic Complications: no major complications apparent
[2016-09-20 21:00] VITALS: BP 154/93; PULSE 63; TEMP 36.6; O2SAT 94
[2016-09-20] MEDS: INSULIN GLARGINE SOLOSTAR 100 UNITS/ML 3 ML PEN SC SCH (21:00)
[2016-09-20 21:30] VITALS: BP 148/82; PULSE 62; TEMP 36.3; O2SAT 97
[2016-09-20 22:52] VITALS: BP 144/79; PULSE 88; TEMP 36.3; O2SAT 97
[2016-09-21] VITALS (9 sets, daily range): BP systolic 111–140; BP diastolic 66–78; PULSE 60–78; TEMP 36.4–37; O2SAT 94–99
[2016-09-21] MEDS: CEFAZOLIN IV 2,000 MG in DEXTROSE 5% 50ML 50 ML IV SCH ×2 (01:36→06:20)
[2016-09-21] MEDS: ROSUVASTATIN CALCIUM 20 MG TAB PO SCH ×2 (01:37→21:21)
[2016-09-21] MEDS: DOCUSATE SODIUM/SENNA 50/8.6MG TAB PO SCH ×2 (01:38→21:22)
[2016-09-21] MEDS: GABAPENTIN 300 MG CAP PO SCH ×4 (01:38→21:23)
[2016-09-21] MEDS: DEXAMETHASONE INJ 6 MG in SYRINGE 0 ML IV SCH ×3 (01:39→14:13)
[2016-09-21] MEDS: ACETAMINOPHEN 500 MG TAB PO SCH ×4 (01:39→23:28)
[2016-09-21] MEDS: SODIUM CHLORIDE 0.9% 1000ML 1,000 ML IV SCH ×2 (01:40→06:43)
[2016-09-21] MEDS ORDERED: INSULIN ASPART 100 UNITS/ML 3 ML PEN SC SCH (02:00)
[2016-09-21] MEDS ORDERED: HYDROmorphone INJ 0.5 MG/0.5 ML SYR IV PRN (06:00)
[2016-09-21] MEDS ORDERED: HYDROmorphone INJ 1 MG/ML SYR IV PRN (06:00)
[2016-09-21 06:57] LABS: COMPLETE YES; HEMATOCRIT 38.6 % (42-52); IG% 0.6 %; LYMPH % 5.9 %; LYMPH ABS # 0.74 K/uL (1.2-3.4); MEAN CELL VOLUME 94.8 fL (80-100); MEAN CORPUSCULAR HEMOGLOBIN 31.2 pg (25-34); MEAN CORPUSCULAR HGB CONC 32.9 g/dl (32-36); MEAN PLATELET VOLUME 10.8 fL (7.4-10.4); MONO % 5.8 %; NEUT % 87.7 %; PLATELET COUNT 152 K/uL (130-400); RED BLOOD COUNT 4.07 M/uL (4.7-6.1); WHITE BLOOD COUNT 12.56 K/uL (4.8-10.8)
[2016-09-21] MEDS ORDERED: NURSING VERBAL MED ORDER ONE (07:30)
[2016-09-21 07:31] LABS: BUN/CREATININE RATIO 19.5 (10-20); CALCIUM 8.7 mg/dl (8.5-10.1); CREATININE 1.2 mg/dl (0.60-1.40); POTASSIUM 4.8 mmol/L (3.5-5.1)
[2016-09-21] MEDS: OXYCODONE HCL IR 5 MG TAB (IMMEDIATE RELEASE) PO PRN ×2 (07:34→15:58)
[2016-09-21] MEDS: CYANOCOBALAMIN 1000 MCG/ML VIAL IM SCH (09:00)
[2016-09-21] MEDS: POTASSIUM CHLORIDE 10 MEQ TABCR PO SCH (09:04)
[2016-09-21] MEDS: MAGNESIUM OXIDE 400 MG TAB PO SCH (09:04)
[2016-09-21] MEDS: LISINOPRIL 20 MG TAB PO SCH ×2 (09:04→21:22)
[2016-09-21] MEDS: FENOFIBRATE 145 MG TAB PO SCH (09:04)
[2016-09-21] MEDS: CARVEDILOL 25 MG TAB PO SCH ×2 (09:05→17:53)
[2016-09-21] MEDS: SPIRONOLACTONE 25 MG TAB PO SCH (09:05)
[2016-09-21] MEDS: AMIODARONE 200 MG TAB PO SCH ×2 (09:05→21:21)
[2016-09-21] MEDS: INSULIN ASPART 100 UNITS/ML 3 ML PEN SC SCH ×4 (09:11→21:34)
[2016-09-21] MEDS: INSULIN GLARGINE SOLOSTAR 100 UNITS/ML 3 ML PEN SC SCH ×2 (09:41→21:32)
--- NOTE | 2016-09-21 11:48 | Pharmacy Progress Note ---
Glycemic Control: Progress Nt Date of Service Sep 21, 2016. Scope Glycemic Pharmacist consulted by Dr Miranda on 09/15/16 for glycemic control and to write orders per [facility] inpatient glycemic control protocol. Objective Accuchecks BSG (last 24hrs): Test 09/20/16 17:35 09/21/16 01:35 09/21/16 06:20 09/21/16 08:31 Bedside Glucose 152 mg/dl (70-99) 237 mg/dl (70-99) 246 mg/dl (70-99) Random Glucose 232 mg/dl (70-99) HbA1c: Test 09/14/16 05:00 Hemoglobin A1c 7.9 % (4.5-5.6) H Recent Pertinent Medications Outpatient Anti-diabetic Regimen: * Metformin 1,000mg PO BIDM The patient is currently receiving: * Basal insulin: Lantus 10 units SQ BID for BSG > 180mg/dl * Correctional Insulin: Novolog Correction per scale ACHS Goal Range: Low 110 mg/dL - High 140 mg/dL Correction Factor: 20 mg/dL/unit * Prandial insulin: Per carb ratio of 1 unit per 8 grams CHO consumed * Oral Agents: On hold for admission Assessment & Plan ASSESSMENT: * Pt has been receiving/requiring ~15-20 units of insulin per day for adequate glycemic control PRE-OPERATIVELY. * Pt now POD#1 s/p lumbar spinal surgery & received high dose IV DXM intraop and will receive 3 doses post-operatively. * This has deteriorated glycemic control d/t increasing stressors/risk factors for insulin resistance & especially steroids. * BSGs ranging 152-246mg/dl post -operatively. * Basal insulin needed for sustained hyperglycemia secondary to long acting steroids * Will tighten bolus insulin to combat post-operative hyperglycemia. * ADA & AACE recommend a goal blood sugar range 140-180 mg/dl for the majority of critically ill & non-critically ill patients. However, more stringent targets may be selected in individual cases. Will utilize more stringent goal range of 110-140mg/dl based on age and baseline glycemic control. Tight glycemic control will be warranted post-operatively for facilitate infection/ wound healing. PLAN FOR INPATIENT GLYCEMIC CONTROL: * Continue to hold outpatient oral diabetes medications * Start Basal insulin with Lantus for persistent hyperglycemia per weight/ stress dosing. * Give Lantus 20 units SQ this morning and 15 units SQ this evening if BSG > 180mg/dl. Will give a max of 2-3 doses of Lantus since this will likely not be needed once dxm effects wear off. * Tighten Novolog per scale ACHS or Q6hrs while NPO * Goal Range: Low 110 mg/dL - High 140 mg/dL * Correction Factor: 15 mg/dL/unit (was 20) * Tighten Nutritional / Prandial insulin per carb ratio of 1 unit per 6 grams CHO consumed (was 8) RECOMMENDATIONS FOR DISCHARGE: * 71yo T2DM male with near adequate degree of outpatient control on oral antidiabetic agent monotherapy. * Recent A1c = 7.9% on 09/14/16 * Goal A1c ~ 7% based on age and comorbidities * Additional agent may be needed at discharge to achieve this * Additional agent should be chosen based on patient specific factors including efficacy, hypo risk, weight gain/loss, side effects, cost * May consider metformin PLUS: * GLP-1 RA: high efficacy, low hypo risk, weight loss, significant GI side effects (titrate low and slow), high cost * SGLT-2i: intermediate efficacy, low hypo risk, weight loss, /dehydration side effects, positive cardiac effects, high cost * DPP-4i: intermediate efficacy (not efficacious for long-standing DM), low hypo risk, weight neutral, rare side effects (well tolerated), high cost * TZD: high efficacy, low hypo risk, weight gain, significant side effects ( edema, HF, fxs), low cost * Basal insulin: high efficacy, hypo risk, weight gain, well tolerated, cost dependent on agent chosen (NPH low cost, all others high cost) * B12 supplementation may be necessary with intermediate metformin use * Support Patient Self-Management * Healthy Lifestyle (diet, exercise, and smoking cessation) * Disease self-management (SMBG) * Prevention of complications (BP, Lipid goals, Immunizations) * Consider outpatient Diabetes Self-Management Education & Support * Please note that the plan above was derived based on current level of insulin resistance and hospital stress. These recommendations are appropriate for inpatient admission only. Plan of care upon discharge will need to be reassessed to avoid potential outpatient hypo/hyperglycemia. Thank you.
[2016-09-21] MEDS ORDERED: RXC5 PO (11:52)
--- NOTE | 2016-09-21 11:53 | Discharge Instructions ---
Discharge Instructions Date of Service Sep 21, 2016. Admission Reason for Admission: Elevated Troponin, Hypertensive Urgency, Lower Discharge Discharge Diagnosis / Problem: stenosis Discharge Goals Goal(s): Improve function Activity Recommendations Activity Limitations: per Instructions/Follow-up section . Instructions / Follow-Up Instructions / Follow-Up ACTIVITY RECOMMENDATIONS: SELF CARE INSTRUCTIONS AFTER THORACIC/LUMBAR FUSIONS 1. You may walk to your tolerance. It is good exercise for your legs and back. Expect some back and intermittent leg aches and pains. 2. You may perform "counter-top" level activities (make a sandwich, luc with a project, etc.). 3. No bending or lifting of more than 10 pounds or back twisting of any nature (roll like a log when turning in bed). 4. You may ride in a car for 20-30 minutes at a time. No driving until after your first visit with your doctor. 5. Frequent changes of position and restricting sitting to 30 minutes at a time will help limit the amount of back spasms and stiffness you may experience. 6. You may discontinue the use of ambulatory aids (cane, crutches, etc.) once your strength and confidence allow. 7. You may maintenance shop welder the shower and let water strike your incision when you arrive home at least once daily. Do not take a tub bath, sit in a hot tub or go into a swimming pool until after your first recheck in the office. SPECIAL CARE INSTRUCTIONS: VERY IMPORTANT TO READ AND REVIEW A. Your surgical incision has been closed with a cosmetic suture under the skin that will dissolve in about 6 weeks. In 14 days, you can use a pair of clean scissors and cut the suture that is left outside of the skin at the ends of your incision. 1. The small skin tapes can be removed 7 days after surgery if they have not fallen off by that point. 2. You may keep the wound open to air as much as possible to promote healing after post-op day number 5 unless told otherwise by your doctor. 3. If you think the wound looks like it is becoming infected (redness or worsening drainage) and/or you are experiencing fever, chill or worsening back pain and muscle spasms, contact the office so that we may evaluate you as soon as possible. B. Complications are uncommon, but please contact us if you have any signs or symptoms of: 1. wound infection (fever higher than 102.5 degrees F, redness, separation of wound, drainage, or increasing pain from the incision) 2. blood clots in legs (pain, swelling, redness and warmth in legs) 3. urinary tract infection (fever higher than 102.5 degrees F, burning upon urination or increased frequency of urination) 4. nerve problems (inability to walk on your toes or heels, numbness, loss of bowel or bladder control) 5. any other symptoms that concern you C. Please call the office at if you have any concerns or questions about your operation or recovery. D. No smoking! Smoking drastically decreases the chance of a solid fusion. E. Do not take any anti-inflammatory medications (Indocin, Advil, Motrin, Aspirin, Naprosyn, etc.) as these may inhibit the chance of a solid fusion. Tylenol is okay to take for pain. MANAGING PAIN AFTER SPINAL SURGERY 1. Narcotic medication is intended for short-term use and will be provided for surgical pain. Surgical pain usually lasts for a period of 4-6 weeks. Narcotic medication includes Percocet, Vicodin, Darvocet, Tylenol #3 or Lortab. 2. Longer-term pain is more appropriately treated with non-narcotic medication such as Tylenol ES. 3. Muscle spasm is not appropriately treated with narcotics. Muscle relaxers such as Soma, Flexeril or Skelaxin can be used along with Tylenol ES. 4. Remember that we all live with some "aches and pains". This is not unusual or uncommon after an injury or as we get older. a. Back pain is expected and may include muscle spasms for 4 to 6 weeks after surgery. The pain should gradually improve. If the pain worsens for no apparent reason, please contact the office. b. Intermittent leg pain may also be experienced and should not be concerned about unless it worsens for no apparent reason. If so, please contact the office. 5. We will provide appropriate medication within the normal guidelines of their prescribed use. We will also be very cautious and aware of potential abuse and extended duration of patients' medication needs. a. Pain medications are for your comfort and to assist with sleep and rest so that the tissue can heal. They are not provided in order to return to normal activity and should not be used through the day. To do so or worsening pain at night can result from ongoing tissue damage and development of tolerance to the prescribed medicine. 6. Please allow 2-3 days to process refills. Prescriptions will not be mailed but must be picked up at the office. FOLLOW UP VISIT: Keep your scheduled follow-up appointment. Any questions, please call the office at . Current Hospital Diet Patient's current hospital diet: AHA Diet (Heart Healthy), Low Sodium Diet (2gm Na), Diabetes Type 2 Diet Discharge Diet Recommended Diet: Regular Diet Procedures Procedures Performed: L2-S1 Decompression, Posterior Spinal Fusion, Instrumentation, Bone Morphogenetic Protein Pending Studies Studies pending at discharge: no Laboratory Results Hemoglobin A1c Test 09/14/16 05:00 Range/Units Estimated Average Glucose 180 mg/dl Hemoglobin A1c 7.9 H 4.5-5.6 % Medical Emergencies . Who to Call and When: Medical Emergencies: If at any time you feel your situation is an emergency, please call 911 immediately. . Non-Emergent Contact Non-Emergency issues call your: Primary Care Provider . "Provider Documentation" section prepared by Stephen Centeno. VTE Core Measure Inpt VTE Proph given/why not?: Edwige Oden, SCD's
--- NOTE | 2016-09-21 11:56 | PROGRESS NOTE ---
DATE: 09/21/2016 SUBJECTIVE: Postop day #1. Back pain controlled. Leg pain improved. Vital signs stable. T-max 36.8. MARIE drained 160 mL. Hematocrit this a.m. 38.6. PHYSICAL EXAMINATION: The patient is in chair at bedside. Has good strength to testing. Appears comfortable. ASSESSMENT: Status post multilevel lumbar decompression and fusion. PLAN: At this time, will initiate physical therapy, advance his bowel regimen. Anticipate discharge to [facility] in the next few days.
--- NOTE | 2016-09-21 12:56 | Anesthesiology Progress Note ---
Anesthesia Post Op Note Date & Time Sep 21, 2016 at 12:56 Vital Signs Vital Signs Past 12 Hours Date Time Temp Pulse Resp B/P Pulse Ox O2 Delivery O2 Flow Rate FiO2 09/21/16 12:07 36.4 68 20 125/71 94 Room Air 09/21/16 10:56 97 Room Air 09/21/16 09:36 98 Nasal Cannula 2.0 09/21/16 08:40 36.8 68 20 140/78 98 Nasal Cannula 2.0 09/21/16 07:35 Room Air 09/21/16 05:00 Nasal Cannula 2.0 09/21/16 03:36 36.4 64 20 113/70 99 Nasal Cannula 2.0 Notes Mental Status: alert / awake / arousable, participated in evaluation Pt Amnestic to Procedure: Yes Nausea / Vomiting: adequately controlled Pain: adequately controlled Airway Patency, RR, SpO2: stable & adequate BP & HR: stable & adequate Hydration State: stable & adequate Anesthetic Complications: no major complications apparent
--- NOTE | 2016-09-21 14:52 | Cardiology Follow-Up ---
Subjective General Date of Service: Sep 21, 2016. Chief Complaint: follow-up back pain, preoperative cardiac evaluation Pt evaluation today including: conversation w/ patient, physical exam History of Present Illness The patient is a 71 year old male seen in follow up. Patient feels well. Denies chest pain or shortness of breath. He did a short amount of walking with PT. BPs are improved. Allergies Coded Allergies: No Known Allergies (Unverified , 09/13/16) Social History Smoking Status: Former Smoker Hx Tobacco Use In Past Year?: No Hx Alcohol Use - Type And Amou: No Hx Substance Use - Type And Am: No Problem List Medical Problems: (1) Acute decompensated heart failure Status: Acute (2) Hypertensive urgency Status: Acute (3) Hypertensive urgency Status: Acute (4) Intractable low back pain Status: Acute (5) Lower back pain Status: Acute Physical Exam Vital Signs Last Vital Signs Documentation Date Time Temp Pulse Resp B/P Pulse Ox O2 Delivery O2 Flow Rate FiO2 09/21/16 12:07 36.4 68 20 125/71 94 Room Air 09/21/16 09:36 2.0 Physical Exam Constitutional: Level of Distress: NAD Neck: supple Lungs: Auscultation: no wheezing, no rales/crackles, no rhonchi Cardiovascular: Heart Auscultation: RRR, no murmurs, no rubs, no gallops Extremities: no edema Assessment and Plan Assessment and Plan Summary of transthoracic echocardiogram performed 06/23/16: Normal left ventricular chamber size with moderate concentric left ventricular hypertrophy and sigmoid septum. No segmental left ventricular wall motion abnormalities Normal left ventricular systolic function, left ventricular ejection fraction 60 -65% Grade 1 diastolic dysfunction Mild aortic regurgitation Mild left atrial enlargement Impression: 71 year old male 1. Status post multilevel lumbar decompression and fusion 09/20/16 2. 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 Chronic diastolic heart failure with hypertensive heart disease, volume status stable. 4. Underlying history of hypertension, perhaps hypertensive heart disease Recommendations: BP stable. Patient describes stable cardiac signs and symptoms. Nurse is about to DC his moncada catheter. He has a spinal drain in place, once removed will revisit timing of re-starting Eliquis. Laboratory Results Last 24 Hours Test 09/20/16 17:35 09/21/16 01:35 09/21/16 06:20 09/21/16 08:31 Bedside Glucose 152 mg/dl 237 mg/dl 246 mg/dl White Blood Count 12.56 K/uL Red Blood Count 4.07 M/uL Hemoglobin 12.7 g/dL Hematocrit 38.6 % Mean Corpuscular Volume 94.8 fL Mean Corpuscular Hemoglobin 31.2 pg Mean Corpuscular Hemoglobin Concent 32.9 g/dl Platelet Count 152 K/uL Mean Platelet Volume 10.8 fL Neutrophils (%) (Auto) 87.7 % Lymphocytes (%) (Auto) 5.9 % Monocytes (%) (Auto) 5.8 % Eosinophils (%) (Auto) 0.0 % Basophils (%) (Auto) 0.0 % Neutrophils # (Auto) 11.01 K/uL Lymphocytes # (Auto) 0.74 K/uL Monocytes # (Auto) 0.73 K/uL Eosinophils # (Auto) 0.00 K/uL Basophils # (Auto) 0.00 K/uL RDW Standard Deviation 51.9 fL RDW Coefficient of Variation 15.1 % Immature Granulocyte % (Auto) 0.6 % Immature Granulocyte # (Auto) 0.08 K/uL Sodium Level 137 mmol/L Potassium Level 4.8 mmol/L Chloride Level 103 mmol/L Carbon Dioxide Level 26 mmol/L Anion Gap 8.0 mmol/L Blood Urea Nitrogen 23 mg/dl Creatinine 1.20 mg/dl Est Creatinine Clear Calc Drug Dose 58.9 ml/min Estimated GFR () 70.1 Estimated GFR (Non- 60.5 BUN/Creatinine Ratio 19.5 Random Glucose 232 mg/dl Calcium Level 8.7 mg/dl Test 09/21/16 11:55 Bedside Glucose 282 mg/dl
--- NOTE | 2016-09-21 18:59 | Progress Note ---
Internal Med Progress Note Date of Service: Sep 21, 2016. Provider Documentation: SUBJECTIVE: sitting on the chair comfortably s/p back surgery ambulated ok pain is ok afebrile no sob OBJECTIVE: Vital Signs-as noted below Exam: General-alert and oriented x 3 Not in distress ENT-normal hearing Neck-no neck masses Lungs-cta b/l no wheezing no crackles Heart-s1 and s2 heard regular rate and rhythm no murmurs' Abdomen-soft bowel sounds present non tender no distension Extremities-no edema no erythema Musculoskeletal s/p back surgery Neuro-alert and awake moves extremities Lab data as noted below. ASSESSMENT & PLAN: 71 yoM with known lumbar DJD and spinal stenosis previously admitted for pain control and on injections per Pain as outpatient, presents with inability to walk 2/2 weakness in his legs and pain 1. Lower back pain-known spinal stenosis and DJD. s/p lumbar decompression and fusion surgery 09/20/16. Elliquis and ASA held for surgery . pain control.Post op management as per ortho.Pl 2. B12 deficiency-replacement started> f/u with pcp. 3. Vitamin D deficiency-replacement started. 4. HTN-was not at goal--changed hydralazine to 25 QID. Also on lisinopril, Coreg, Hytrin and spironolactone. iv hydralazine prn.stable now.Will monitor. 5. Hypertroponemia-h/o mild nonobstructive CAD per cath in 2009. Asymptomatic and EKG reveals no changes. Recent admission had troponin leak and was thought to be 2/2 hypertensive heart disease. Echo at that time revealed a normal EF and no wall motion abnormalities and thought to be from supply demand. Seen by Cardiology and ok for surgery with acceptable risk,.Stable 6. PAF-On carvedilol. Apixaban/ASA held for upcoming procedure.Will monitor.To restart eliquis as soon as possible 7. DMII-holding metformin,On ISS.. A1C 7.9. Appreciate pharmacy consult. DVT proph-SCDs, Lovenox (apixaban held). Full Code DISPOSITION pt/ot social service for d/c planing Vital Signs: Date Time Temp Pulse Resp B/P Pulse Ox O2 Delivery O2 Flow Rate FiO2 09/21/16 15:45 Room Air 09/21/16 15:36 36.7 60 17 111/66 94 Room Air 09/21/16 12:07 36.4 68 20 125/71 94 Room Air 09/21/16 10:56 97 Room Air 09/21/16 09:36 98 Nasal Cannula 2.0 09/21/16 08:40 36.8 68 20 140/78 98 Nasal Cannula 2.0 09/21/16 07:35 Room Air 09/21/16 05:00 Nasal Cannula 2.0 09/21/16 03:36 36.4 64 20 113/70 99 Nasal Cannula 2.0 09/20/16 22:52 36.3 88 20 144/79 97 Nasal Cannula 4.0 09/20/16 21:30 36.3 62 16 148/82 97 Nasal Cannula 4.0 09/20/16 21:00 36.6 63 16 154/93 94 Nasal Cannula 4.0 09/20/16 20:30 Nasal Cannula 4.0 09/20/16 20:00 36.7 61 20 130/85 97 Nasal Cannula 4 09/20/16 19:45 36.7 60 20 120/76 96 Nasal Cannula 4 09/20/16 19:30 36.7 60 20 120/78 96 Nasal Cannula 4 09/20/16 19:15 36.7 60 20 125/73 96 Nasal Cannula 4 09/20/16 19:05 36.7 60 20 125/73 96 Nasal Cannula 4 09/20/16 18:55 36.7 60 20 129/81 96 Nasal Cannula 4 Lab Results: Results Past 24 Hours Test 09/21/16 01:35 09/21/16 06:20 09/21/16 08:31 09/21/16 11:55 Range/Units Bedside Glucose 237 246 282 70-99 mg/dl White Blood Count 12.56 4.8-10.8 K/uL Red Blood Count 4.07 4.7-6.1 M/uL Hemoglobin 12.7 14.0-18.0 g/dL Hematocrit 38.6 42-52 % Mean Corpuscular Volume 94.8 80-100 fL Mean Corpuscular Hemoglobin 31.2 25-34 pg Mean Corpuscular Hemoglobin Concent 32.9 32-36 g/dl Platelet Count 152 130-400 K/uL Mean Platelet Volume 10.8 7.4-10.4 fL Neutrophils (%) (Auto) 87.7 % Lymphocytes (%) (Auto) 5.9 % Monocytes (%) (Auto) 5.8 % Eosinophils (%) (Auto) 0.0 % Basophils (%) (Auto) 0.0 % Neutrophils # (Auto) 11.01 1.4-6.5 K/uL Lymphocytes # (Auto) 0.74 1.2-3.4 K/uL Monocytes # (Auto) 0.73 0.11-0.59 K/uL Eosinophils # (Auto) 0.00 0-0.5 K/uL Basophils # (Auto) 0.00 0-0.2 K/uL RDW Standard Deviation 51.9 36.4-46.3 fL RDW Coefficient of Variation 15.1 11.5-14.5 % Immature Granulocyte % (Auto) 0.6 % Immature Granulocyte # (Auto) 0.08 0.00-0.02 K/uL Sodium Level 137 136-145 mmol/L Potassium Level 4.8 3.5-5.1 mmol/L Chloride Level 103 98-107 mmol/L Carbon Dioxide Level 26 21-32 mmol/L Anion Gap 8.0 3-11 mmol/L Blood Urea Nitrogen 23 7-18 mg/dl Creatinine 1.20 0.60-1.40 mg/dl Est Creatinine Clear Calc Drug Dose 58.9 ml/min Estimated GFR () 70.1 Estimated GFR (Non- 60.5 BUN/Creatinine Ratio 19.5 10-20 Random Glucose 232 70-99 mg/dl Calcium Level 8.7 8.5-10.1 mg/dl Test 09/21/16 17:14 Range/Units Bedside Glucose 238 70-99 mg/dl
[2016-09-22] VITALS (7 sets, daily range): BP systolic 101–134; BP diastolic 61–83; PULSE 62–77; TEMP 36.4–36.7; O2SAT 97–98
[2016-09-22] MEDS: POLYETHYLENE (MIRALAX) 17 GM PACK PO SCH ×3 (05:43→18:00)
[2016-09-22] MEDS: ACETAMINOPHEN 500 MG TAB PO SCH ×3 (05:44→21:17)
[2016-09-22] MEDS: OXYCODONE HCL IR 5 MG TAB (IMMEDIATE RELEASE) PO PRN (08:58)
[2016-09-22] MEDS: INSULIN GLARGINE SOLOSTAR 100 UNITS/ML 3 ML PEN SC SCH (09:00)
[2016-09-22] MEDS: LISINOPRIL 20 MG TAB PO SCH ×2 (09:00→21:16)
[2016-09-22] MEDS: CARVEDILOL 25 MG TAB PO SCH ×2 (09:00→19:14)
[2016-09-22] MEDS: GABAPENTIN 300 MG CAP PO SCH ×3 (09:00→21:17)
[2016-09-22] MEDS: FENOFIBRATE 145 MG TAB PO SCH (09:00)
[2016-09-22] MEDS: SPIRONOLACTONE 25 MG TAB PO SCH (09:01)
[2016-09-22] MEDS: ERGOCALCIFEROL 50,000 INTER.UNIT CAP PO SCH (09:01)
[2016-09-22] MEDS: MAGNESIUM OXIDE 400 MG TAB PO SCH (09:02)
[2016-09-22] MEDS: POTASSIUM CHLORIDE 10 MEQ TABCR PO SCH (09:02)
[2016-09-22] MEDS: AMIODARONE 200 MG TAB PO SCH ×2 (09:02→21:16)
[2016-09-22] MEDS: CYANOCOBALAMIN 1000 MCG/ML VIAL IM SCH (09:03)
[2016-09-22] MEDS: INSULIN ASPART 100 UNITS/ML 3 ML PEN SC SCH ×4 (09:08→21:19)
--- NOTE | 2016-09-22 09:55 | PROGRESS NOTE ---
DATE: 09/22/2016 Overall he is doing well, marked improvement in his leg symptoms. Ambulating nicely yesterday. Vital signs stable. T-max 36.4. MARIE drain 55 mL. Bowel movement yesterday. Hematocrit stable at 38.6. PHYSICAL EXAMINATION: He is sitting in bed, has good strength to testing. Appears comfortable. ASSESSMENT: Status post lumbar decompression and fusion. PLAN: At this time, we will continue physical therapy. I anticipate discharge to [facility] Monday if okay with medicine. He understands and agrees.
--- NOTE | 2016-09-22 11:05 | Pharmacy Progress Note ---
Glycemic Control: Progress Nt Date of Service Sep 22, 2016. Scope Glycemic Pharmacist consulted by Dr Miranda on 09/15/16 for glycemic control and to write orders per [facility] inpatient glycemic control protocol. Objective Accuchecks BSG (last 24hrs): Test 09/21/16 11:55 09/21/16 17:14 09/21/16 20:32 09/22/16 08:01 Bedside Glucose 282 mg/dl (70-99) 238 mg/dl (70-99) 262 mg/dl (70-99) 173 mg/dl (70-99) HbA1c: Test 09/14/16 05:00 Hemoglobin A1c 7.9 % (4.5-5.6) H Recent Pertinent Medications Outpatient Anti-diabetic Regimen: * Metformin 1 gm BID The patient is currently receiving: * Basal insulin: Lantus 0-20 units (per sliding scale based upon BSG ) Received 20 units 3 AM, 15 units 3 PM, 0 units this AM * Correctional Insulin: Novolog Correction per scale ACHS Goal Range: Low 110 mg/dL - High 140 mg/dL Correction Factor: 15 mg/dL/unit * Prandial insulin: Per carb ratio of 1 unit per 5 grams CHO consumed * Oral Agents: None at this time Risk Factors for Insulin Resistance: * Steroids: Decadron 6 mg IV x 3 doses postop - d/c'd yesterday * Recent Surgery: POD #2 s/p lumbar decompression and fusion * Diet: AHA/ type 2 diabetes - consuming an ave of 60 gm CHO with meals Assessment & Plan ASSESSMENT: From 09/21/16 note: * Pt has been receiving/requiring ~15-20 units of insulin per day for adequate glycemic control PRE-OPERATIVELY. * Pt now POD#1 s/p lumbar spinal surgery & received high dose IV DXM intraop and will receive 3 doses post-operatively. * This has deteriorated glycemic control d/t increasing stressors/risk factors for insulin resistance & especially steroids. * BSGs ranging 152-246mg/dl post -operatively. * Basal insulin needed for sustained hyperglycemia secondary to long acting steroids * Will tighten bolus insulin to combat post-operative hyperglycemia. 09/22/16 * Mr. Celaya received 94 units of insulin yesterday with BSGs ranging from 173- 288 mg/dL in the past 24 hours * His last dose of Decadron was ~24 hours ago so I expect the glycemic effects to wear off by this evening into tomorrow AM * His fasting BSG did not warrant a Lantus dose based upon the sliding scale but with his BSG up to 288 prior to lunch, I would like to give him some basal to last through today * In addition, since it appears that the patient will be possibly discharged to [facility] tomorrow, will plan to start transitioning to outpatient regimen and resume metformin tonight (meets criteria at this time) PLAN FOR INPATIENT GLYCEMIC CONTROL: * Resume metformin 1 gm BID starting with dinner * Continue Novolog ACHS * Goal 110-140 mg/dL * CF 15 mg/dL/unit * CR 1 unit per 5 gm CHO consumed * Lantus 10 units x 1 now * Will re-evaluate tomorrow but do not anticipate needing further basal as hyperglycemic effects of steroids should be worn off RECOMMENDATIONS FOR DISCHARGE: * Please see glycemic note from 09/21 * Please note that the plan above was derived based on current level of insulin resistance and hospital stress. These recommendations are appropriate for inpatient admission only. Plan of care upon discharge will need to be reassessed to avoid potential outpatient hypo/hyperglycemia. Thank you.
[2016-09-22] MEDS ORDERED: INSULIN GLARGINE SOLOSTAR 100 UNITS/ML 3 ML PEN SC ONE (13:00)
--- NOTE | 2016-09-22 16:51 | Progress Note ---
Internal Med Progress Note Date of Service: Sep 22, 2016. Provider Documentation: SUBJECTIVE: sitting on the chair comfortably says ambulated ok pain is ok afebrile not moved bowels yet OBJECTIVE: Vital Signs-as noted below Exam: General-alert and oriented x 3 Not in distress ENT-normal hearing Neck-no neck masses Lungs-cta b/l no wheezing no crackles Heart-s1 and s2 heard regular rate and rhythm no murmurs' Abdomen-soft bowel sounds present non tender no distension Extremities-no edema no erythema Musculoskeletal s/p back surgery Neuro-alert and awake moves extremities Lab data as noted below. ASSESSMENT & PLAN: 71 yoM with known lumbar DJD and spinal stenosis previously admitted for pain control and on injections per Pain as outpatient, presents with inability to walk 2/2 weakness in his legs and pain 1. Lower back pain-known spinal stenosis and DJD. s/p lumbar decompression and fusion surgery 09/20/16. Elliquis and ASA held for surgery . pain control.Post op management as per ortho.Plan for rehab in am 2. B12 deficiency-replacement started> f/u with pcp. 3. Vitamin D deficiency-replacement started. 4. HTN-was not at goal--changed hydralazine to 25 QID. Also on lisinopril, Coreg, Hytrin and spironolactone. iv hydralazine prn.stable now.Will monitor. 5. Hypertroponemia-h/o mild nonobstructive CAD per cath in 2009. Asymptomatic and EKG reveals no changes. Recent admission had troponin leak and was thought to be 2/2 hypertensive heart disease. Echo at that time revealed a normal EF and no wall motion abnormalities and thought to be from supply demand. Seen by Cardiology and ok for surgery with acceptable risk,.Stable 6. PAF-On carvedilol. Apixaban/ASA held for upcoming procedure.Will monitor.To restart eliquis as soon as possible 7. DMII-holding metformin,On ISS.. A1C 7.9. Appreciate pharmacy consult. DVT proph-SCDs, Lovenox (apixaban held). Full Code DISPOSITION pt/ot possible d/c to rehab in am social service for d/c planing Vital Signs: Date Time Temp Pulse Resp B/P Pulse Ox O2 Delivery O2 Flow Rate FiO2 09/22/16 14:58 36.6 77 17 118/77 97 Room Air 09/22/16 13:05 63 103/66 09/22/16 11:30 Room Air 09/22/16 08:56 63 122/77 09/22/16 07:56 36.4 64 16 134/81 98 Room Air 09/22/16 06:45 Room Air 09/21/16 23:27 Room Air 09/21/16 22:53 36.5 65 16 112/71 94 Room Air 09/21/16 21:20 78 127/76 09/21/16 20:27 37.0 73 18 121/71 95 Room Air Lab Results: Results Past 24 Hours Test 09/21/16 17:14 09/21/16 20:32 09/22/16 08:01 09/22/16 12:26 Range/Units Bedside Glucose 238 262 173 288 70-99 mg/dl
[2016-09-22] MEDS: METFORMIN HCL 500 MG TAB PO SCH (19:14)
[2016-09-22] MEDS: ROSUVASTATIN CALCIUM 20 MG TAB PO SCH (21:16)
[2016-09-22] MEDS: DOCUSATE SODIUM/SENNA 50/8.6MG TAB PO SCH (21:17)
[2016-09-22] MEDS ORDERED: NURSING VERBAL MED ORDER ONE (23:15)
[2016-09-23] MEDS: OXYCODONE HCL IR 5 MG TAB (IMMEDIATE RELEASE) PO PRN (05:59)
[2016-09-23] MEDS: ACETAMINOPHEN 500 MG TAB PO SCH ×2 (05:59→13:26)
[2016-09-23 07:44] VITALS: BP 130/82; PULSE 76; TEMP 36.6; O2SAT 96
[2016-09-23] MEDS: CARVEDILOL 25 MG TAB PO SCH (08:58)
[2016-09-23] MEDS: METFORMIN HCL 500 MG TAB PO SCH (08:58)
[2016-09-23] MEDS: SPIRONOLACTONE 25 MG TAB PO SCH (09:01)
[2016-09-23] MEDS: AMIODARONE 200 MG TAB PO SCH (09:02)
[2016-09-23] MEDS: MAGNESIUM OXIDE 400 MG TAB PO SCH (09:03)
[2016-09-23] MEDS: POTASSIUM CHLORIDE 10 MEQ TABCR PO SCH (09:03)
[2016-09-23] MEDS: FENOFIBRATE 145 MG TAB PO SCH (09:04)
[2016-09-23] MEDS: LISINOPRIL 20 MG TAB PO SCH (09:04)
[2016-09-23] MEDS: GABAPENTIN 300 MG CAP PO SCH ×2 (09:04→13:26)
[2016-09-23] MEDS: INSULIN ASPART 100 UNITS/ML 3 ML PEN SC SCH ×2 (09:05→12:00)
[2016-09-23] MEDS: CYANOCOBALAMIN 1000 MCG/ML VIAL IM SCH (09:07)
[2016-09-23 09:32] VITALS: O2SAT 100
[2016-09-23 11:21] VITALS: BP 130/82; PULSE 76; TEMP 36.6; O2SAT 100
--- NOTE | 2016-09-23 11:23 | Pharmacy Progress Note ---
Glycemic: Assessment & Plan Date of Service Sep 23, 2016. Assessment & Plan Assessment * BSGs ranging 96-288 mg/dl over the past 24hrs. * No dexamethasone x48 hr - effects likely dissipating or gone * Metformin resumed yesterday PM - will continue * Will eliminate carb ratio as metformin is ordered and utilize correction factor only Plan * Oral agents: Continue metformin 1 g po BIDM * Basal insulin: Discontinue * Correctional Insulin: Novolog Correction per scale ACHS Goal Range: Low 110 mg/dL - High 140 mg/dL Correction Factor: 20 mg/dL/unit * Prandial insulin: Discontinue Pharmacy will continue to monitor patient daily and write orders per [facility] inpatient glycemic control protocol. Thanks. * Please note that the plan above was derived based on current level of insulin resistance and hospital stress. These recommendations are appropriate for inpatient admission only. Plan of care upon discharge will need to be reassessed to avoid potential outpatient hypo/hyperglycemia.
--- NOTE | 2016-09-23 11:30 | DISCHARGE SUMMARY ---
Back pain and leg pain continues to improve. Vital signs stable. T-max 36.6. MARIE drained 45 mL On exam, he is ambulating well and good strength to testing. ASSESSMENT: Status post multilevel lumbar decompression and fusion. PLAN: At this time we are looking to have him transferred to [facility] today. Will see him back in a few weeks. Update x-rays and view his status.
[2016-09-23 16:21] VITALS: BP 128/78; PULSE 61; TEMP 36.6; O2SAT 96
--- NOTE | 2016-09-23 19:10 | Progress Note ---
Internal Med Progress Note Date of Service: Sep 23, 2016. Provider Documentation: SUBJECTIVE: sitting on the chair comfortably says ambulated fine moved bowels waiting for discharge OBJECTIVE: Vital Signs-as noted below Exam: General-alert and oriented x 3 Not in distress ENT-normal hearing Neck-no neck masses Lungs-cta b/l no wheezing no crackles Heart-s1 and s2 heard regular rate and rhythm no murmurs' Abdomen-soft bowel sounds present non tender no distension Extremities-no edema no erythema Musculoskeletal s/p back surgery Neuro-alert and awake moves extremities Lab data as noted below. ASSESSMENT & PLAN: 71 yoM with known lumbar DJD and spinal stenosis previously admitted for pain control and on injections per Pain as outpatient, presents with inability to walk 2/2 weakness in his legs and pain 1. Lower back pain-known spinal stenosis and DJD. s/p lumbar decompression and fusion surgery 09/20/16. Elliquis and ASA held for surgery . pain control.Post op management as per ortho.Plan for [facility] today 2. B12 deficiency-replacement started> f/u with pcp. 3. Vitamin D deficiency-replacement started. 4. HTN-was not at goal--changed hydralazine to 25 QID. Also on lisinopril, Coreg, Hytrin and spironolactone. iv hydralazine prn.stable now.Will monitor. d/c on home meds f/u with pcp 5. Hypertroponemia-h/o mild nonobstructive CAD per cath in 2009. Asymptomatic and EKG reveals no changes. Recent admission had troponin leak and was thought to be 2/2 hypertensive heart disease. Echo at that time revealed a normal EF and no wall motion abnormalities and thought to be from supply demand. Seen by Cardiology and ok for surgery with acceptable risk,.Stable 6. PAF-On carvedilol. Apixaban/ASA held for upcoming procedure.Will monitor.restarted eliquis on discharge 7. DMII-holding metformin,On ISS.. A1C 7.9. d/lily on home meds f/u with pcp discharged to [facility] Vital Signs: Date Time Temp Pulse Resp B/P Pulse Ox O2 Delivery O2 Flow Rate FiO2 09/23/16 16:21 36.6 61 18 128/78 96 Room Air 09/23/16 11:21 36.6 76 17 100 Room Air 09/23/16 09:32 100 Room Air 09/23/16 08:39 Room Air 09/23/16 07:44 36.6 76 17 130/82 96 Room Air 09/23/16 00:00 Room Air 09/22/16 23:29 36.7 62 16 101/61 97 Room Air 09/22/16 19:11 65 119/79 Lab Results: Results Past 24 Hours Test 09/22/16 21:00 09/23/16 07:46 09/23/16 11:57 Range/Units Bedside Glucose 150 96 115 70-99 mg/dl
[2017-02-22] MEDS ORDERED: HYDR-5688 PO (13:15)
[2017-02-22] MEDS ORDERED: TRAM-453 PO (13:15)
[2017-02-22] MEDS ORDERED: NRN300 PO (13:15)
[2017-04-18] MEDS ORDERED: TRAM-10 PO (09:15)
[2017-04-18] MEDS ORDERED: GABA1CAP5 PO (09:15)
== END 2016-09-23 17:15 | DRG 460 ==
LOC: ENRESERVDT → ENRESERVTM → EDBD 17:43 → C.EDC 17:47 → C.EDINP 21:59 → C.2T 09-14 10:58 → OBSVTOIN 09-15 08:48 → C.MS2W 09-16 15:24 → C.3E 09-20 20:50
PROVIDERS: ADMIT Hospitalist; ATTEND Internal Medicine
PROC: 0SG3071 Fusion of Lumbosacral Joint with Autologous Tissue Substitute, Posterior Approach, Posterior Column, Open Approach (ICD-10-PCS; principal; 2016-09-20 12:00)
PROC: 3E0V0GB Introduction of Recombinant Bone Morphogenetic Protein into Bones, Open Approach (ICD-10-PCS; principal; 2016-09-20 12:00)
PROC: 0SH00BZ Insertion of Interspinous Process Spinal Stabilization Device into Lumbar Vertebral Joint, Open Approach (ICD-10-PCS; principal; 2016-09-20 12:00)
PROC: 0SG1071 Fusion of 2 or more Lumbar Vertebral Joints with Autologous Tissue Substitute, Posterior Approach, Posterior Column, Open Approach (ICD-10-PCS; principal; 2016-09-20 12:00)
PROC: 0SH30BZ Insertion of Interspinous Process Spinal Stabilization Device into Lumbosacral Joint, Open Approach (ICD-10-PCS; principal; 2016-09-20 12:00)
PROC: 0SB20ZZ Excision of Lumbar Vertebral Disc, Open Approach (ICD-10-PCS; principal; 2016-09-20 12:00)
DX: M51.16 Intervertebral disc disorders with radiculopathy, lumbar region (principal); M48.06 Spinal stenosis, lumbar region; I50.32 Chronic diastolic (congestive) heart failure; I13.0 Hypertensive heart and chronic kidney disease with heart failure and stage 1 through stage 4 chronic kidney disease, or unspecified chronic kidney disease; M47.26 Other spondylosis with radiculopathy, lumbar region; I16.0 Hypertensive urgency; I25.10 Atherosclerotic heart disease of native coronary artery without angina pectoris; N18.3 Chronic kidney disease, stage 3 (moderate); E11.21 Type 2 diabetes mellitus with diabetic nephropathy; I48.0 Paroxysmal atrial fibrillation; G47.30 Sleep apnea, unspecified; E55.9 Vitamin D deficiency, unspecified; E53.8 Deficiency of other specified B group vitamins; Z98.1 Arthrodesis status; W18.39XA Other fall on same level, initial encounter; Y92.002 Bathroom of unspecified non-institutional (private) residence as the place of occurrence of the external cause; Z87.891 Personal history of nicotine dependence; Y93.01 Activity, walking, marching and hiking; Z95.0 Presence of cardiac pacemaker

== ENCOUNTER 2017-02-19 13:29 | Observation (INO) | payer OTHER ==
[~2017-02-19] VITALS: Ht 160 cm; Wt 85.8 kg
[~2017-02-19 13:29] MED LIST changes: +ACET-1256 PO; +RXC5 PO
[2017-02-19 14:56] LABS: BASO % 0.2 %; BASO ABS # 0.02 K/uL (0-0.2); COMPLETE YES; EOS % 2.4 %; HEMATOCRIT 44.1 % (42-52); IG% 0.3 %; LYMPH % 22.1 %; MEAN CORPUSCULAR HEMOGLOBIN 27.4 pg (25-34); MEAN CORPUSCULAR HGB CONC 31.5 g/dl (32-36); MEAN PLATELET VOLUME 10.8 fL (7.4-10.4); PLATELET COUNT 172 K/uL (130-400); RED BLOOD COUNT 5.07 M/uL (4.7-6.1); WHITE BLOOD COUNT 8.58 K/uL (4.8-10.8)
[2017-02-19 15:00] LABS: MANUAL MICROSCOPIC REQUIRED? NO; REVIEW REQ? NO; URINE APPEARANCE CLOUDY (CLEAR); URINE BILIRUBIN NEG (NEG); URINE COLOR YELLOW; URINE EPITHELIAL CELL AUTO 0-5 /lpf (0-5); URINE NITRITE NEG (NEG); URINE PH 7.5 (4.5-7.5); URINE SPECIFIC GRAVITY 1.015 (1.000-1.030); UROBILINOGEN NEG (NEG)
[2017-02-19 15:05] LABS: INR 1.1 (0.9-1.1); PARTIAL THROMBOPLASTIN RATIO 0.9; PROTHROMBIN TIME (PATIENT) 11.8 SECONDS (9.0-12.0)
[2017-02-19 15:12] LABS: BUN/CREATININE RATIO 16.8 (10-20); CALCIUM 9.2 mg/dl (8.5-10.1); POTASSIUM 3.9 mmol/L (3.5-5.1)
--- NOTE | 2017-02-19 15:29 | DIAGNOSTIC IMAGING REPORT ---
HEAD WITHOUT CONTRAST (CT) CLINICAL HISTORY: 71 years-old Male with eval for trauma, cva. Acute trauma. TECHNIQUE: Multiple axial CT images of the head were obtained without contrast. A dose lowering technique was utilized adhering to the principles of ALARA. CT DOSE: 638.56 mGycm COMPARISON: None. FINDINGS: No acute intracranial hemorrhage, midline shift, mass, large territorial ischemia or abnormal extra-axial collection. There is mild cervical atrophy. Mild background chronic microvascular ischemic changes are noted. Vascular calcifications are seen at the level of the skull base. The basilar artery appears tortuous. The calvarium is intact. The paranasal sinuses, mastoid air cells, and middle ear cavities are clear. There is evidence of prior bilateral cataract repair. IMPRESSION: No acute intracranial abnormality. The above report was generated using voice recognition software. It may contain grammatical, syntax or spelling errors. Electronically signed by: Daniel Luevano M.D. 02/19/2017 3:27 PM Dictated Date/Time: 02/19/2017 3:25 PM
--- NOTE | 2017-02-19 15:36 | DIAGNOSTIC IMAGING REPORT ---
CERVICAL SPINE W/O CT DOSE: 597.68 mGycm CLINICAL HISTORY: 71 years-old Male with eval for trauma. Acute neck injury. COMPARISON: None. TECHNIQUE: Multiple axial CT images of the cervical spine were obtained without contrast. A dose lowering technique was utilized adhering to the principles of ALARA. FINDINGS: No acute cervical spine fracture or dislocation identified. Left subclavian approach pacer wires are partially imaged. Multilevel degenerative changes of the cervical spine are seen with advanced intervertebral disc space narrowing at the C5-C6 and C6-C7 levels. Multilevel moderate to severe facet arthropathy is seen, notably within the lower cervical levels. Large posterior disc osteophyte complex formations are seen C3-C4, C4-C5, C5-C6 and C6-C7. Associated uncovertebral spurring and facet arthropathy results in severe neuroforaminal stenosis at several levels. There is moderate central canal and left lateral recess stenosis at C4-C5. Partially calcified degenerative pannus posterior to odontoid process partially effaces the ventral thecal sac. There is no prevertebral soft tissue swelling. Enlarged right thyroid lobe is noted with a posterior 2.4 x 1.5 cm nodule noted. Lung apices are clear. There is dense atherosclerotic plaquing of the carotid vasculature. Mild medial course of the carotid vascularity is noted. IMPRESSION: 1. No acute cervical spine fracture or subluxation. 2. Multilevel degenerative changes as above result in varying degrees of central canal and foraminal narrowing. 3. Posterior right thyroid nodule is seen, 2.4 cm which could be further evaluated with outpatient nonemergent ultrasound if clinically indicated. The above report was generated using voice recognition software. It may contain grammatical, syntax or spelling errors. Electronically signed by: Daniel Luevano M.D. 02/19/2017 3:35 PM Dictated Date/Time: 02/19/2017 3:29 PM
--- NOTE | 2017-02-19 15:45 | DIAGNOSTIC IMAGING REPORT ---
ABD/PELVIS NO IV OR ORAL CONT HISTORY: 71 years-old Male acute abdominal trauma. COMPARISON: Lumbar spine CT of same day. TECHNIQUE: Multiple axial CT images of the abdomen and pelvis were obtained without contrast. A dose lowering technique was used consistent with the principals of JETT. FINDINGS: The liver, spleen, gallbladder and right adrenal gland are unremarkable. There is thickening of the left gland suggesting hyperplasia. There is a circumscribed homogeneous cystic-appearing lesion of the anterior pancreatic body, 1.5 x 2.1 cm which is nonspecific however suggests a sidebranch IPMN. There are a few nonobstructing renal calculi on the right. There is a linear 6 mm calcific density of the interpolar right kidney suggesting calculus or vascular calcification. Low attenuating 1.5 similar lesion of the anterior interpolar left kidney suggests cyst however is indeterminate. There is no hydronephrosis. The urinary bladder is unremarkable. Prostate is mildly prominent. There is moderate atherosclerotic plaquing of the abdominal aorta. No bulky adenopathy. There is no bowel obstruction. Noninflamed colonic diverticula are seen. The appendix appears normal. There is a dense ovoid circumscribed collection, 4.1 x 5.2 x 5.0 cm in AP, transverse and craniocaudal dimensions involving the central periumbilical abdominal wall in the region of the linea alba. The remaining soft tissues are unremarkable. Bones are mildly demineralized. This limits evaluation for acute nondisplaced fracture. Multilevel advanced discogenic degenerative changes of the spine are seen. Posterior interbody yola and screw fusion hardware extends from L2-S1. Its of hardware complication. IMPRESSION: 1. Dense ovoid circumscribed lesion or collection of the midline anterior abdominal wall centered within the region of the linea alba is seen, 4.1 x 5.2 x 5.0 cm and protrudes into the peritoneal margin of the abdomen. Differential considerations would include atypical rectus sheath hematoma or soft tissue neoplasm. Correlate with clinical exam and patient presentation. 2. No evidence of acute solid organ injury or fracture. 3. 1.5 cm cystic lesion of the anterior pancreatic body is nonspecific however suggests a sidebranch IPMN. The above report was generated using voice recognition software. It may contain grammatical, syntax or spelling errors. Electronically signed by: Daniel Luevano M.D. 02/19/2017 3:44 PM Dictated Date/Time: 02/19/2017 3:35 PM
--- NOTE | 2017-02-19 16:10 | DIAGNOSTIC IMAGING REPORT ---
LUMBAR SPINE WITHOUT HISTORY: 71 years-old Male acute trauma. COMPARISON: CT lumbar spine 09/13/2016 TECHNIQUE: Multiple axial CT images of the lumbar spine were obtained without IV contrast. A dose lowering technique was used consistent with the principals of ALARA. FINDINGS: Prior posterior decompression with interbody yola and screw fusion seen at L2-S1. No evidence of hardware complication or malalignment. Vertebral body heights are well-maintained without compression deformity. The imaged posterior elements are intact. No sacral fracture identified. There is mild convex left curvature of the lumbar spine of less than 10 degrees. Degenerative changes are seen within the sacroiliac joints with multilevel discogenic degenerative changes. The imaged ribs appear intact. There is atherosclerotic plaquing of the abdominal aorta and iliac vasculature. Right-sided nephrolithiasis redemonstrated. Evaluation of the intervertebral disc spaces is limited secondary to streak artifact from hardware. T12-L1: Mild intervertebral disc space narrowing without significant central canal or foraminal narrowing. L1-L2: Mild intervertebral disc space narrowing and facet arthrosis without central canal narrowing. There is mild inferior bilateral foraminal narrowing. L2-L3: Moderate intervertebral disc space narrowing with posterior spondylitic ridging, facet arthrosis and circumferential annular disc bulge causes effacement of the ventral thecal sac and causes mild to moderate left and mild right foraminal narrowing. L3-L4: Moderate intervertebral disc space narrowing with posterior spondylitic ridging and facet arthrosis. There is effacement of the ventral thecal sac with moderate left and [id number] right foraminal narrowing. L4-L5: Moderate posterior intervertebral disc space narrowing with posterior disc osteophyte complex and facet arthrosis causes effacement of the ventral thecal sac, mild to moderate right and mild left foraminal stenosis. L5-S1: Severe intervertebral disc space narrowing with posterior disc osteophyte complex measuring up to 9 mm in AP dimension with facet arthrosis causes severe central canal, severe left and moderate right foraminal narrowing. IMPRESSION: 1. No acute lumbar spine fracture or dislocation. 2. Prior posterior decompression with interbody yola and screw fixation at L2-S1. No evidence of hardware complication or malalignment. 3. Multilevel discogenic degenerative changes and facet arthropathy resulting in varying degrees of central canal and foraminal narrowing as above, most pronounced at L5-S1. The above report was generated using voice recognition software. It may contain grammatical, syntax or spelling errors. Electronically signed by: Daniel Luevano M.D. 02/19/2017 4:08 PM Dictated Date/Time: 02/19/2017 3:44 PM
[2017-02-19] MEDS ORDERED: MoRPHine SULFATE 4 MG/ML 1 ML CARP\\VIAL IV STA (16:20)
[2017-02-19] MEDS ORDERED: ONDANSETRON INJ 2 MG/ML 2 ML VIAL IV STA (16:20)
[2017-02-19] MEDS ORDERED: LIDODERM (LIDOCAINE) PATCH 5% TD ONE (18:52)
[2017-02-19] MEDS ORDERED: DEXTROSE 50% 50 ML SYR IV PRN (19:00)
[2017-02-19] MEDS ORDERED: GLUCOSE 40% GEL 15 GM TUBE PO PRN (19:00)
[2017-02-19] MEDS ORDERED: GLUCAGON FOR INJ 1 MG VIAL SQ PRN (19:00)
[2017-02-19] MEDS ORDERED: GLUCOSE 10 TABS/TUBE PO PRN (19:00)
[2017-02-19] MEDS ORDERED: ONDANSETRON INJ 2 MG/ML 2 ML VIAL IV PRN (19:15)
[2017-02-19] MEDS ORDERED: ACETAMINOPHEN 325 MG TAB PO PRN (19:15)
--- NOTE | 2017-02-19 19:29 | History and Physical ---
History & Physical Date & Time of Service: Feb 19, 2017 at 19:14 Chief Complaint: Weakness Primary Care Physician: Crow Garcia D.O. History of Present Illness Source: patient, family Patient is a 71 year old male with history CAD s/p PM, A fib on Eliquis, DM, HTN, CKD 3, CHF Diastolic type presenting with left leg weakness and falls. Patient underwent Lumbar Spine Surgery in August 2016 c/o Dr. Centeno. He was doing fine until about 2 weeks ago when he started to have back pain, sacral region, radiating to the left leg, associated with leg weakness, paresthesias. Denies any incontinence. Tried Tylenol for pain with no relief. Patient reports increased pain and leg weakness recently. Today, patient was severe, thus patient called EMS. He had a mechanical fall while being transferred and landed on his buttocks,hitting his back and his head. Denies headache, upper back pain. On exam, patient seen resting in bed, not in distress. State left leg pain is moderate. Denies incontinence. Denies headache, chest pain, dyspnea, dizziness, palpitations. Denies abdominal pain, bleeding. No other symptoms Past Medical/Surgical History Medical Problems: (1) CAD (coronary artery disease) Permanent Comment: Non-obstructive by cath in 2009 Status: Chronic (2) Chronic diastolic CHF (congestive heart failure), NYHA class 1 Permanent Comment: Echo 05/2015- EF 65-69%, grade II diastolic dysfunction, mild AV regurgitation, mildly enlarged aortic root and proximal ascending aorta Status: Chronic (3) CKD (chronic kidney disease), stage III Status: Chronic (4) DM type 2 (diabetes mellitus, type 2) Status: Chronic (5) Dyslipidemia Status: Chronic (6) Hypertension Status: Chronic (7) Paroxysmal a-fib Permanent Comment: on apixaban Status: Chronic (8) Sleep apnea Permanent Comment: s/p UPPP Status: Chronic (9) Tachy-aquiles syndrome Permanent Comment: S/P pacemaker in 2013 Status: Chronic Surgical Problems: (1) H/O inguinal hernia repair Status: Chronic (2) H/O palate surgery Status: Chronic (3) H/O umbilical hernia repair Status: Chronic (4) History of cataract surgery Status: Chronic Family History Hypertension Kidney disease Stroke FATHER MOTHER Social History Smoking Status: Former Smoker Drug Use: none Marital Status: Housing status: lives with family Occupational Status: retired Immunizations History of Influenza Vaccine: Yes History of Tetanus Vaccine?: Unknown History of Pneumococcal: Yes History of Hepatitis B Vaccine: Unknown Allergies Coded Allergies: No Known Allergies (Unverified , 02/19/17) Home Medications Scheduled Amiodarone Hcl (Cordarone), 200 MG PO QAM Apixaban (Eliquis), 5 MG PO BID Aspirin (Aspirin Ec), 81 MG PO QAM Carvedilol (Coreg), 37.5 MG PO BIDM Cholecalciferol (Vitamin D), 1,000 UNIT PO QAM Fenofibrate (Tricor), 145 MG PO DAILY Lisinopril (Prinivil), 20 MG PO BID Magnesium Oxide (Mag-Ox), 400 MG PO DAILY Metformin Hcl (Glucophage), 1,000 MG PO BIDM Potassium Chloride (Micro-K Ext Rel), 20 MEQ PO DAILY Rosuvastatin Calcium (Crestor), 20 MG PO HS Spironolactone (Aldactone), 12.5 MG PO DAILY Terazosin (Hytrin), 5 MG PO HS Scheduled PRN Acetaminophen (Tylenol), 1,000 MG PO Q8 PRN for Pain Furosemide (Lasix), 40 MG PO BID PRN for PRN Hydrocodone/Acetaminophen 5MG/325MG ([place] 5MG/325MG), 1-2 TAB PO Q4H PRN for Pain Lidocaine (Lidocaine), 1 PATCH TD UD PRN for Pain Nitroglycerin (Nitrostat), 0.4 MG UT UD PRN for Chest Pain Oxycodone HCl (Oxycodone HCl), 5-10 MG PO Q4H PRN for Moderate - severe pain Tramadol Hcl (Ultram), 50 MG PO Q6H PRN for Pain Review of Systems Constitutional- no fever; no weight loss Eyes- no acute visual changes ENT- no sinus drainage; no pharyngitis Pulmonary- no cough, no wheezing, no shortness of breath Cardiac- no chest pain, no palpitations, no orthopnea, no dependent edema GI- no nausea, no vomiting, no diarrhea, no melena, no hematochezia - no dysuria, no hematuria Musculoskeletal- (+) as noted above Derm- no rashes, no new skin lesions, no changing skin lesions Hematologic- no unusual bruising, no unusual bleeding Lymphatics- no adenopathy Endocrine- no polyuria or polydipsia; no heat or cold intolerance Neuro- no headaches, no focal neurologic symptoms Psych- no anxiety, no depression Physical Exam Vital Signs Date Time Temp Pulse Resp B/P (MAP) Pulse Ox O2 Delivery O2 Flow Rate FiO2 02/19/17 19:02 70 20 183/94 94 Room Air 02/19/17 17:09 61 18 178/92 Room Air 02/19/17 16:08 78 196/91 94 Room Air 02/19/17 15:27 62 18 184/93 96 Room Air 02/19/17 14:05 96 198/98 02/19/17 13:50 36.6 82 20 205/164 96 Room Air General Appearance: WD/WN, no apparent distress Head: normocephalic, atraumatic Eyes: normal inspection, EOMI, sclerae normal ENT: normal ENT inspection, hearing grossly normal, pharynx normal Neck: supple, no adenopathy, thyroid normal, no JVD, trachea midline Respiratory/Chest: chest non-tender, lungs clear, normal breath sounds, no respiratory distress, no accessory muscle use Cardiovascular: regular rate, rhythm, no edema, no JVD, no murmur Abdomen/GI: normal bowel sounds, non tender, soft Back: normal inspection, no CVA tenderness Extremities/Musculoskelatal: + pertinent finding (left leg: healing abrasion on the lower leg; mild lower leg edema) 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, no motor/sensory deficits, alert, normal mood/affect, oriented x 3, + pertinent finding (Left Leg: motor strength 3/5, sensation 80% on the upper leg) Skin: normal color, warm/dry, no rash Diagnostics Laboratory Results Results Past 24 Hours Test 02/19/17 14:31 02/19/17 14:44 Range/Units Urine Color YELLOW Urine Appearance CLOUDY CLEAR Urine pH 7.5 4.5-7.5 Urine Specific [place] 1.015 1.000-1.030 Urine Protein NEG NEG Urine Glucose (UA) 2+ NEG Urine Ketones NEG NEG Urine Occult Blood NEG NEG Urine Nitrite NEG NEG Urine Bilirubin NEG NEG Urine Urobilinogen NEG NEG Urine Leukocyte Esterase NEG NEG Urine WBC (Auto) 1-5 0-5 /hpf Urine RBC (Auto) 0-4 0-4 /hpf Urine Hyaline Casts (Auto) 0 0-5 /lpf Urine Epithelial Cells (Auto) 0-5 0-5 /lpf Urine Bacteria (Auto) NEG NEG White Blood Count 8.58 4.8-10.8 K/uL Red Blood Count 5.07 4.7-6.1 M/uL Hemoglobin 13.9 14.0-18.0 g/dL Hematocrit 44.1 42-52 % Mean Corpuscular Volume 87.0 80-100 fL Mean Corpuscular Hemoglobin 27.4 25-34 pg Mean Corpuscular Hemoglobin Concent 31.5 32-36 g/dl Platelet Count 172 130-400 K/uL Mean Platelet Volume 10.8 7.4-10.4 fL Neutrophils (%) (Auto) 67.0 % Lymphocytes (%) (Auto) 22.1 % Monocytes (%) (Auto) 8.0 % Eosinophils (%) (Auto) 2.4 % Basophils (%) (Auto) 0.2 % Neutrophils # (Auto) 5.73 1.4-6.5 K/uL Lymphocytes # (Auto) 1.90 1.2-3.4 K/uL Monocytes # (Auto) 0.69 0.11-0.59 K/uL Eosinophils # (Auto) 0.21 0-0.5 K/uL Basophils # (Auto) 0.02 0-0.2 K/uL RDW Standard Deviation 50.4 36.4-46.3 fL RDW Coefficient of Variation 15.9 11.5-14.5 % Immature Granulocyte % (Auto) 0.3 % Immature Granulocyte # (Auto) 0.03 0.00-0.02 K/uL Prothrombin Time 11.8 9.0-12.0 SECONDS Prothromb Time International Ratio 1.1 0.9-1.1 Activated Partial Thromboplast Time 24.2 21.0-31.0 SECONDS Partial Thromboplastin Ratio 0.9 Sodium Level 142 136-145 mmol/L Potassium Level 3.9 3.5-5.1 mmol/L Chloride Level 105 98-107 mmol/L Carbon Dioxide Level 30 21-32 mmol/L Anion Gap 7.0 3-11 mmol/L Blood Urea Nitrogen 17 7-18 mg/dl Creatinine 1.00 0.60-1.40 mg/dl Est Creatinine Clear Calc Drug Dose 70.3 ml/min Estimated GFR () 87.4 Estimated GFR (Non- 75.4 BUN/Creatinine Ratio 16.8 10-20 Random Glucose 173 70-99 mg/dl Calcium Level 9.2 8.5-10.1 mg/dl Total Bilirubin 0.6 0.2-1 mg/dl Direct Bilirubin 0.2 0-0.2 mg/dl Aspartate Amino Transf (AST/SGOT) 20 15-37 U/L Alanine Aminotransferase (ALT/SGPT) 18 12-78 U/L Alkaline Phosphatase 50 45-117 U/L Total Protein 7.1 6.4-8.2 gm/dl Albumin 3.9 3.4-5.0 gm/dl Lipase 148 73-393 U/L Microbiology Results 02/19/17 Urine Culture, Received Pending Diagnostic Radiology Lumbar Spine CT: IMPRESSION: 1. No acute lumbar spine fracture or dislocation. 2. Prior posterior decompression with interbody yola and screw fixation at L2-S1. No evidence of hardware complication or malalignment. 3. Multilevel discogenic degenerative changes and facet arthropathy resulting in varying degrees of central canal and foraminal narrowing as above, most pronounced at L5-S1. EKG HR 67, Atrial paced Impression Assessment and Plan Patient is a 71 year old male with history CAD s/p PM, A fib on Eliquis, DM, HTN, CKD 3, CHF Diastolic type presenting with left leg weakness and falls. LEFT LEG PAIN, WEAKNESS SECONDARY TO RADICULOPATHY - CT Lumbar spine noted - will order Lidoderm patch, Gabapentin, Tramadol PRN PT/OT Dr. Centeno consulted HYPERTENSION - patient has not take his medications today - will resume usual Carvedilol, Lisinopril POSSIBLE RECTUS SHEATH HEMATOMA - will order US of the abdomen - hold Eliquis for now CAD, S/P PM stable A FIB ON ELIQUIS continue Amiodarone hold Eliquis for now DM hold Metformin continue ISS CKD 3 stable CHF DIASTOLIC TYPE euvolemic continue diuretics DVT proph scds for now Code status Full Code Dispo lives at home may need Rehab VTE Prophylaxis VTE Risk Assessment Done? Y/N: Yes Risk Level: Moderate
[2017-02-19] MEDS ORDERED: ACETAMINOPHEN 500 MG TAB PO PRN (19:30)
[2017-02-19] MEDS ORDERED: FUROSEMIDE 40 MG TAB PO PRN (19:30)
--- NOTE | 2017-02-19 20:13 | EMERGENCY ROOM VISIT NOTE ---
History Report prepared by Garland: Maty Stringer Under the Supervision of: Dr. Bo Aiken M.D. First contact with patient: 14:15 Chief Complaint: FALL Stated Complaint: WEAKNESS History of Present Illness The patient is a 71 year old male who presents to the Emergency Room with complaints of an episode of a fall occurring two hours ago. The patient notes that he has fallen twice in the past week at his home. He states that the reason he falls is because his left leg gives out. He states that he has been having shooting pain down the front of his leg through his knee. He reports that he has had x-rays done that showed nothing, but it is still there. He notes that he hasn't slept in 3 days because of the pain in his knee. He states today when he fell he fell onto his back. He notes he did hit his head. The patient reports that he was not on the floor for very long. He states that he recently started using his cane in the house because he has been falling so much. The patient complains of back pain and neck pain. He currently rates his pain as a 9/10 in severity.The patient denies loss of consciousness, chest pain , dizziness, numbness, weakness, shortness of breath, pain while breathing, urinary symptoms, melena, hematochezia, visual changes, and difficulty speaking. The patient notes that he is on blood thinners and that he had back surgery 5 months ago. Source of History: patient Onset: two hours ago Position: other (global) Symptom Intensity: 9/10 Quality: other (global) Timing: other (episode) Associated Symptoms: + neck pain, + back pain, No LOC, No chest pain, No SOB , No melena, No hematochezia, No urinary symptoms, No weakness, No numbness Note: The patient complains of left leg pain. The patient denies dizziness, pain while breathing, visual changes, and difficulty speaking. Review of Systems See HPI for pertinent positives & negatives. A total of 10 systems reviewed and were otherwise negative. Past Medical & Surgical Medical Problems: (1) Back pain (2) CAD (coronary artery disease) (3) Chronic diastolic CHF (congestive heart failure), NYHA class 1 (4) CKD (chronic kidney disease), stage III (5) Coronary Atherosclerosis Of [place] Coronary Vessel (6) Diab Giselle Wo Compl, Type Ii Or Unspec Type, Not Uncntrld (7) DM type 2 (diabetes mellitus, type 2) (8) Dyslipidemia (9) Elevated troponin (10) Elevated troponin (11) Hyperlipidemia Nec/Nos (12) Hypertension (13) Hypertension Nos (14) Hypertensive urgency (15) Left leg weakness (16) Obesity, Nos (17) Paroxysmal a-fib (18) Sleep apnea (19) Spinal stenosis of lumbar region (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 Nurse's notes were reviewed and I agree with. Family History Hypertension Kidney disease Stroke FATHER MOTHER Social History Smoking Status: Former Smoker Alcohol Use: none Drug Use: none Marital Status: Housing Status: lives with significant other Occupation Status: retired Current/Historical Medications Scheduled Amiodarone Hcl (Cordarone), 200 MG PO QAM Apixaban (Eliquis), 5 MG PO BID Aspirin (Aspirin Ec), 81 MG PO QAM Carvedilol (Coreg), 37.5 MG PO BIDM Cholecalciferol (Vitamin D), 1,000 UNIT PO QAM Fenofibrate (Tricor), 145 MG PO DAILY Lisinopril (Prinivil), 20 MG PO BID Magnesium Oxide (Mag-Ox), 400 MG PO DAILY Metformin Hcl (Glucophage), 1,000 MG PO BIDM Potassium Chloride (Micro-K Ext Rel), 20 MEQ PO DAILY Rosuvastatin Calcium (Crestor), 20 MG PO HS Spironolactone (Aldactone), 12.5 MG PO DAILY Terazosin (Hytrin), 5 MG PO HS Scheduled PRN Acetaminophen (Tylenol), 1,000 MG PO Q8 PRN for Pain Furosemide (Lasix), 40 MG PO BID PRN for PRN Hydrocodone/Acetaminophen 5MG/325MG ([place] 5MG/325MG), 1-2 TAB PO Q4H PRN for Pain Lidocaine (Lidocaine), 1 PATCH TD UD PRN for Pain Nitroglycerin (Nitrostat), 0.4 MG UT UD PRN for Chest Pain Oxycodone HCl (Oxycodone HCl), 5-10 MG PO Q4H PRN for Moderate - severe pain Tramadol Hcl (Ultram), 50 MG PO Q6H PRN for Pain Allergies Coded Allergies: No Known Allergies (Unverified , 02/19/17) Physical Exam Vital Signs Date Time Temp Pulse Resp B/P (MAP) Pulse Ox O2 Delivery O2 Flow Rate FiO2 02/19/17 17:09 61 18 178/92 Room Air 02/19/17 16:08 78 196/91 94 Room Air 02/19/17 15:27 62 18 184/93 96 Room Air 02/19/17 14:05 96 198/98 02/19/17 13:50 36.6 82 20 205/164 96 Room Air Physical Exam General: Well developed well nourished in no acute distress, breathing comfortably on room air. Normal speech. Toc-[id number]-cqoidgkfs older male. HEENT: Normal cephalic atraumatic. Pupils are equal round and reactive to light. Extraocular movements are intact. Oropharynx is pink with moist mucous membranes. No swelling of the mouth lips or tongue. Neck: Supple with a midline trachea. No meningeal signs or stiffness, no JVD or bruits. No Stridor. Chest: Clear to auscultation bilaterally. No wheezes or rhonchi. No increased work of breathing. Heart: regular rate and rhythm. Abdomen: Soft nontender, nondistended without rebound guarding or rigidity. Extremities: No cyanosis, clubbing, or edema. No calf tenderness or assymetry. 2 + distal pulses. Difficulty with flexing left hip. Normal motor sensation in ankle and foot. Spine/Back. Minimal tenderness to cervical spine. Tenderness to lumbar spine. Skin: Good turgor without rashes. Neurologic exam: Cranial nerves two through 12 are intact. Motor and sensation are intact and symmetrical throughout with exception of some weakness in the left leg particularly with flexing at the hip. Medical Decision & Procedures ER Provider Diagnostic Interpretation: Radiology results as stated below per my review and radiologist interpretation: LUMBAR SPINE WITHOUT HISTORY: 71 years-old Male acute trauma. COMPARISON: CT lumbar spine 09/13/2016 TECHNIQUE: Multiple axial CT images of the lumbar spine were obtained without IV contrast. A dose lowering technique was used consistent with the principals of ALARA. FINDINGS: Prior posterior decompression with interbody yola and screw fusion seen at L2-S1. No evidence of hardware complication or malalignment. Vertebral body heights are well-maintained without compression deformity. The imaged posterior elements are intact. No sacral fracture identified. There is mild convex left curvature of the lumbar spine of less than 10 degrees. Degenerative changes are seen within the sacroiliac joints with multilevel discogenic degenerative changes. The imaged ribs appear intact. There is atherosclerotic plaquing of the abdominal aorta and iliac vasculature. Right-sided nephrolithiasis redemonstrated. Evaluation of the intervertebral disc spaces is limited secondary to streak artifact from hardware. T12-L1: Mild intervertebral disc space narrowing without significant central canal or foraminal narrowing. L1-L2: Mild intervertebral disc space narrowing and facet arthrosis without central canal narrowing. There is mild inferior bilateral foraminal narrowing. L2-L3: Moderate intervertebral disc space narrowing with posterior spondylitic ridging, facet arthrosis and circumferential annular disc bulge causes effacement of the ventral thecal sac and causes mild to moderate left and mild right foraminal narrowing. L3-L4: Moderate intervertebral disc space narrowing with posterior spondylitic ridging and facet arthrosis. There is effacement of the ventral thecal sac with moderate left and bhju-zj-dtsojgfy right foraminal narrowing. L4-L5: Moderate posterior intervertebral disc space narrowing with posterior disc osteophyte complex and facet arthrosis causes effacement of the ventral thecal sac, mild to moderate right and mild left foraminal stenosis. L5-S1: Severe intervertebral disc space narrowing with posterior disc osteophyte complex measuring up to 9 mm in AP dimension with facet arthrosis causes severe central canal, severe left and moderate right foraminal narrowing. IMPRESSION: 1. No acute lumbar spine fracture or dislocation. 2. Prior posterior decompression with interbody yola and screw fixation at L2-S1. No evidence of hardware complication or malalignment. 3. Multilevel discogenic degenerative changes and facet arthropathy resulting in varying degrees of central canal and foraminal narrowing as above, most pronounced at L5-S1. The above report was generated using voice recognition software. It may contain grammatical, syntax or spelling errors. Electronically signed by: Daniel Luevano M.D. 02/19/2017 4:08 PM Dictated Date/Time: 02/19/2017 3:44 PM HEAD WITHOUT CONTRAST (CT) CLINICAL HISTORY: 71 years-old Male with eval for trauma, cva. Acute trauma. TECHNIQUE: Multiple axial CT images of the head were obtained without contrast. A dose lowering technique was utilized adhering to the principles of ALARA. CT DOSE: 638.56 mGycm COMPARISON: None. FINDINGS: No acute intracranial hemorrhage, midline shift, mass, large territorial ischemia or abnormal extra-axial collection. There is mild cervical atrophy. Mild background chronic microvascular ischemic changes are noted. Vascular calcifications are seen at the level of the skull base. The basilar artery appears tortuous. The calvarium is intact. The paranasal sinuses, mastoid air cells, and middle ear cavities are clear. There is evidence of prior bilateral cataract repair. IMPRESSION: No acute intracranial abnormality. The above report was generated using voice recognition software. It may contain grammatical, syntax or spelling errors. Electronically signed by: Daniel Luevano M.D. 02/19/2017 3:27 PM Dictated Date/Time: 02/19/2017 3:25 PM CERVICAL SPINE W/O CT DOSE: 597.68 mGycm CLINICAL HISTORY: 71 years-old Male with eval for trauma. Acute neck injury. COMPARISON: None. TECHNIQUE: Multiple axial CT images of the cervical spine were obtained without contrast. A dose lowering technique was utilized adhering to the principles of ALARA. FINDINGS: No acute cervical spine fracture or dislocation identified. Left subclavian approach pacer wires are partially imaged. Multilevel degenerative changes of the cervical spine are seen with advanced intervertebral disc space narrowing at the C5-C6 and C6-C7 levels. Multilevel moderate to severe facet arthropathy is seen, notably within the lower cervical levels. Large posterior disc osteophyte complex formations are seen C3-C4, C4-C5, C5-C6 and C6-C7. Associated uncovertebral spurring and facet arthropathy results in severe neuroforaminal stenosis at several levels. There is moderate central canal and left lateral recess stenosis at C4-C5. Partially calcified degenerative pannus posterior to odontoid process partially effaces the ventral thecal sac. There is no prevertebral soft tissue swelling. Enlarged right thyroid lobe is noted with a posterior 2.4 x 1.5 cm nodule noted. Lung apices are clear. There is dense atherosclerotic plaquing of the carotid vasculature. Mild medial course of the carotid vascularity is noted. IMPRESSION: 1. No acute cervical spine fracture or subluxation. 2. Multilevel degenerative changes as above result in varying degrees of central canal and foraminal narrowing. 3. Posterior right thyroid nodule is seen, 2.4 cm which could be further evaluated with outpatient nonemergent ultrasound if clinically indicated. The above report was generated using voice recognition software. It may contain grammatical, syntax or spelling errors. Electronically signed by: Daniel Luevano M.D. 02/19/2017 3:35 PM Dictated Date/Time: 02/19/2017 3:29 PM ABD/PELVIS NO IV OR ORAL CONT HISTORY: 71 years-old Male acute abdominal trauma. COMPARISON: Lumbar spine CT of same day. TECHNIQUE: Multiple axial CT images of the abdomen and pelvis were obtained without contrast. A dose lowering technique was used consistent with the principals of JETT. FINDINGS: The liver, spleen, gallbladder and right adrenal gland are unremarkable. There is thickening of the left gland suggesting hyperplasia. There is a circumscribed homogeneous cystic-appearing lesion of the anterior pancreatic body, 1.5 x 2.1 cm which is nonspecific however suggests a sidebranch IPMN. There are a few nonobstructing renal calculi on the right. There is a linear 6 mm calcific density of the interpolar right kidney suggesting calculus or vascular calcification. Low attenuating 1.5 similar lesion of the anterior interpolar left kidney suggests cyst however is indeterminate. There is no hydronephrosis. The urinary bladder is unremarkable. Prostate is mildly prominent. There is moderate atherosclerotic plaquing of the abdominal aorta. No bulky adenopathy. There is no bowel obstruction. Noninflamed colonic diverticula are seen. The appendix appears normal. There is a dense ovoid circumscribed collection, 4.1 x 5.2 x 5.0 cm in AP, transverse and craniocaudal dimensions involving the central periumbilical abdominal wall in the region of the linea alba. The remaining soft tissues are unremarkable. Bones are mildly demineralized. This limits evaluation for acute nondisplaced fracture. Multilevel advanced discogenic degenerative changes of the spine are seen. Posterior interbody yola and screw fusion hardware extends from L2-S1. Its of hardware complication. IMPRESSION: 1. Dense ovoid circumscribed lesion or collection of the midline anterior abdominal wall centered within the region of the linea alba is seen, 4.1 x 5.2 x 5.0 cm and protrudes into the peritoneal margin of the abdomen. Differential considerations would include atypical rectus sheath hematoma or soft tissue neoplasm. Correlate with clinical exam and patient presentation. 2. No evidence of acute solid organ injury or fracture. 3. 1.5 cm cystic lesion of the anterior pancreatic body is nonspecific however suggests a sidebranch IPMN. The above report was generated using voice recognition software. It may contain grammatical, syntax or spelling errors. Electronically signed by: Daniel Luevano M.D. 02/19/2017 3:44 PM Dictated Date/Time: 02/19/2017 3:35 PM Laboratory Results 02/19/17 14:44 Red Blood Count 5.07, Mean Corpuscular Volume 87.0, Mean Corpuscular Hemoglobin 27.4, Mean Corpuscular Hemoglobin Concent 31.5, Mean Platelet Volume 10.8, Neutrophils (%) (Auto) 67.0, Lymphocytes (%) (Auto) 22.1, Monocytes (%) (Auto) 8.0, Eosinophils (%) (Auto) 2.4, Basophils (%) (Auto) 0.2, Neutrophils # (Auto) 5.73, Lymphocytes # (Auto) 1.90, Monocytes # (Auto) 0.69, Eosinophils # (Auto) 0.21, Basophils # (Auto) 0.02 02/19/17 14:44 Test 02/19/17 14:31 02/19/17 14:44 Urine Color YELLOW Urine Appearance CLOUDY (CLEAR) Urine pH 7.5 (4.5-7.5) Urine Specific [place] 1.015 (1.000-1.030) Urine Protein NEG (NEG) Urine Glucose (UA) 2+ (NEG) Urine Ketones NEG (NEG) Urine Occult Blood NEG (NEG) Urine Nitrite NEG (NEG) Urine Bilirubin NEG (NEG) Urine Urobilinogen NEG (NEG) Urine Leukocyte Esterase NEG (NEG) Urine WBC (Auto) 1-5 /hpf (0-5) Urine RBC (Auto) 0-4 /hpf (0-4) Urine Hyaline Casts (Auto) 0 /lpf (0-5) Urine Epithelial Cells (Auto) 0-5 /lpf (0-5) Urine Bacteria (Auto) NEG (NEG) White Blood Count 8.58 K/uL (4.8-10.8) Red Blood Count 5.07 M/uL (4.7-6.1) Hemoglobin 13.9 g/dL (14.0-18.0) Hematocrit 44.1 % (42-52) Mean Corpuscular Volume 87.0 fL (80-100) Mean Corpuscular Hemoglobin 27.4 pg (25-34) Mean Corpuscular Hemoglobin Concent 31.5 g/dl (32-36) Platelet Count 172 K/uL (130-400) Mean Platelet Volume 10.8 fL (7.4-10.4) Neutrophils (%) (Auto) 67.0 % Lymphocytes (%) (Auto) 22.1 % Monocytes (%) (Auto) 8.0 % Eosinophils (%) (Auto) 2.4 % Basophils (%) (Auto) 0.2 % Neutrophils # (Auto) 5.73 K/uL (1.4-6.5) Lymphocytes # (Auto) 1.90 K/uL (1.2-3.4) Monocytes # (Auto) 0.69 K/uL (0.11-0.59) Eosinophils # (Auto) 0.21 K/uL (0-0.5) Basophils # (Auto) 0.02 K/uL (0-0.2) RDW Standard Deviation 50.4 fL (36.4-46.3) RDW Coefficient of Variation 15.9 % (11.5-14.5) Immature Granulocyte % (Auto) 0.3 % Immature Granulocyte # (Auto) 0.03 K/uL (0.00-0.02) Prothrombin Time 11.8 SECONDS (9.0-12.0) Prothromb Time International Ratio 1.1 (0.9-1.1) Activated Partial Thromboplast Time 24.2 SECONDS (21.0-31.0) Partial Thromboplastin Ratio 0.9 Anion Gap 7.0 mmol/L (3-11) Est Creatinine Clear Calc Drug Dose 70.3 ml/min Estimated GFR () 87.4 Estimated GFR (Non- 75.4 BUN/Creatinine Ratio 16.8 (10-20) Calcium Level 9.2 mg/dl (8.5-10.1) Total Bilirubin 0.6 mg/dl (0.2-1) Direct Bilirubin 0.2 mg/dl (0-0.2) Aspartate Amino Transf (AST/SGOT) 20 U/L (15-37) Alanine Aminotransferase (ALT/SGPT) 18 U/L (12-78) Alkaline Phosphatase 50 U/L (45-117) Total Protein 7.1 gm/dl (6.4-8.2) Albumin 3.9 gm/dl (3.4-5.0) Lipase 148 U/L (73-393) Laboratory studies as stated above per my review. Medications Administered Medications (Trade) Dose Ordered Sig/Juliette Route Start Time Stop Time Status Last Admin Dose Admin Morphine Sulfate (MoRPHine SULFATE INJ) 4 mg NOW STAT IV 02/19/17 16:20 02/19/17 16:22 DC 02/19/17 16:27 4 MG Ondansetron HCl (Zofran Inj) 4 mg NOW STAT IV 02/19/17 16:20 02/19/17 16:22 DC 02/19/17 16:27 4 MG ECG Indication: weakness Rate (beats per minute): 67 Rhythm: other (atrial paced) Findings: no acute ischemic change, left axis deviation Comparison ECG Date: 09/15/2016 Change: no significant change ED Course 1416: Past medical records reviewed. The patient was evaluated in room B8, and a complete history and physical examination were performed. 1545: I reevaluated the patient and he just got back from CT. He appears comfortable. 1620: Ordered Zofran Inj 4 mg IV, Morphine Sulfate 4 mg IV. 1625: I discussed the patient's case with MIKE Irving. He states he knows who the patient is and doesn't feel that they need to do anything surgically. 1756: I reevaluated the patient and his feeling better. He still rates his pain as a 5/10 in pain. 1732: Discussed the patient's case with Dr. Ordaz. The patient will be evaluated for further management. Medical Decision Differential diagnoses include traumatic injuries, lumbar disease, central neurologic process, anemia, infection, electrolyte abnormality, metabolic abnormality. This patient comes in as described above he's had weakness in his left leg he's had this that sounds like chronically Better for a while after surgery but gotten worse over the last week or so his fallen at least twice he is on Eliquis. On exam, he has some weakness with a flexion. he has no bowel or bladder problems. no fever or chills. He has no abdominal pain. He may have hit his head when he fell. There was no syncope or chest pain or shortness breath. IV access was established and multiple blood testing was obtained. He has significant degenerative changes in his CT of his lumbar spine including a large disc with protrusion and severe spinal stenosis at L5-S1 with some foraminal narrowing on the left this could certainly be causing his symptoms. He also has on his abdominal Ct an abnormality which may be an atypical hematoma or neoplasm. He does have some mesh in there and it could be related to that as well. He has no fever or white count. He is not significantly anemic. He has nothing to suggest cardiac disease. He was given IV morphine and IV Zofran is still having some discomfort. he does not feel he is safe to go home. I do think he needs to be admitted for pain management further treatment and evaluation have discussed the case with Dr. Centeno's PA and he will be admitted to the medical team. Medication Reconcilliation Current Medication List: was personally reviewed by me Blood Pressure Screening Patient's blood pressure: Elevated blood pressure Will be monitored by hospitalist. Consults Time Called: 1622 Consulting Physician: MIKE Irving Returned Call: [phone] I discussed the patient's case with MIKE Irving. He states he knows who the patient is and doesn't feel that they need to do anything surgically. Additional Consults: Time Called: 1730 Consulted Physician: Dr. Ordaz Returned Call: [phone] Additional Comments: Discussed the patient's case with Dr. Ordaz. The patient will be evaluated for further management. Impression Primary Impression: Left leg weakness Additional Impressions: Frequent falls Left leg pain Lumbar disc disease Rectus sheath hematoma Current use of anticoagulant therapy Scribe Attestation The scribe's documentation has been prepared under my direction and personally reviewed by me in its entirety. I confirm that the note above accurately reflects all work, treatment, procedures, and medical decision making performed by me. Departure Information Dispostion Being Evaluated By Hospitalist Referrals Tadeo Barone M.D. (PCP) Patient Instructions My [facility] Problem Qualifiers
[2017-02-19] MEDS ORDERED: IV FLUIDS COMPLETED PRN (20:30)
[2017-02-19] MEDS: INSULIN ASPART 100 UNITS/ML 3 ML PEN SC SCH (20:48)
[2017-02-19] MEDS: ROSUVASTATIN CALCIUM 20 MG TAB PO SCH (21:08)
[2017-02-19] MEDS: LISINOPRIL 20 MG TAB PO SCH (21:08)
[2017-02-19] MEDS: GABAPENTIN 300 MG CAP PO SCH (21:09)
[2017-02-19] MEDS: HYDROCODONE/ACETAMOPHEN 5/325MG TAB PO PRN (21:12)
[2017-02-19 21:17] VITALS: BP 196/122; PULSE 99; TEMP 36.5; Ht 160 cm; Wt 85.8 kg
[2017-02-19 23:41] VITALS: BP 154/85; PULSE 62; TEMP 37; O2SAT 94
[2017-02-20] VITALS (9 sets, daily range): BP systolic 121–160; BP diastolic 72–88; PULSE 60–70; TEMP 36.4–36.9; O2SAT 92–96
[2017-02-20] MEDS: TRAMADOL HCL 50 MG TAB PO PRN ×3 (01:13→22:22)
[2017-02-20 06:25] LABS: BASO % 0.3 %; BASO ABS # 0.02 K/uL (0-0.2); COMPLETE YES; EOS % 3.2 %; IG% 0.4 %; LYMPH % 21.3 %; LYMPH ABS # 1.53 K/uL (1.2-3.4); MEAN CORPUSCULAR HEMOGLOBIN 27.4 pg (25-34); MEAN CORPUSCULAR HGB CONC 31.5 g/dl (32-36); MEAN PLATELET VOLUME 9.9 fL (7.4-10.4); MONO % 10.4 %; NEUT % 64.4 %; PLATELET COUNT 138 K/uL (130-400); WHITE BLOOD COUNT 7.19 K/uL (4.8-10.8)
[2017-02-20 06:59] LABS: BUN/CREATININE RATIO 19.9 (10-20); CALCIUM 8.8 mg/dl (8.5-10.1); POTASSIUM 3.5 mmol/L (3.5-5.1)
--- NOTE | 2017-02-20 06:59 | DIAGNOSTIC IMAGING REPORT ---
ABDOMEN LIMITED (US) CLINICAL HISTORY: 71 years-old Male presenting with possible hematoma, abdominal wall neoplasm seen on CT abd. TECHNIQUE: Real-time grayscale ultrasound imaging of the umbilical region was performed for a focused evaluation at the site of clinical concern. Color Doppler was also performed. COMPARISON: CT performed the same day. FINDINGS: Circumscribed hypoechoic 5.1 x 3.2 x 5.0 cm mass centered at the midline abdominal wall musculature with regional mass effect on both the superficial and deep soft tissues. Color Doppler demonstrates minimal peripheral hypervascularity, however, no convincing evidence of internal vascularity. IMPRESSION: 1. 5.1 cm mass in the abdominal wall. In the appropriate clinical setting, this most likely represents a hematoma or less likely abscess. However, follow-up ultrasound for resolution could be considered to ensure resolution given the primary alternate differential consideration being a desmoid tumor. Electronically signed by: Avery Nails M.D. 02/20/2017 6:58 AM Dictated Date/Time: 02/20/2017 6:55 AM
[2017-02-20] MEDS: POTASSIUM CHLORIDE 10 MEQ TABCR PO SCH (07:20)
[2017-02-20] MEDS: LISINOPRIL 20 MG TAB PO SCH ×2 (07:20→20:21)
[2017-02-20] MEDS: GABAPENTIN 300 MG CAP PO SCH ×3 (07:20→20:21)
[2017-02-20] MEDS: CARVEDILOL 25 MG TAB PO SCH ×2 (07:21→17:55)
[2017-02-20] MEDS: MAGNESIUM OXIDE 400 MG TAB PO SCH (07:21)
[2017-02-20] MEDS: FENOFIBRATE 145 MG TAB PO SCH (07:21)
[2017-02-20] MEDS: FUROSEMIDE 40 MG TAB PO SCH (07:22)
[2017-02-20] MEDS: SPIRONOLACTONE 25 MG TAB PO SCH (07:22)
[2017-02-20] MEDS: LIDODERM (LIDOCAINE) PATCH 5% TD SCH (07:23)
[2017-02-20] MEDS: AMIODARONE 200 MG TAB PO SCH (07:23)
[2017-02-20] MEDS: INSULIN ASPART 100 UNITS/ML 3 ML PEN SC SCH ×4 (08:08→20:53)
--- NOTE | 2017-02-20 11:45 | Progress Note ---
Medicine Progress Note Date & Time of Visit: Feb 20, 2017 at 11:38. Subjective patient seen resting in bed, comfortable states left leg pain and weakness is about the same as well as lower back discomfort denies abdominal pain, chills, nausea no other symptoms Objective Last 8 Hrs Date Time Temp Pulse Resp B/P (MAP) Pulse Ox O2 Delivery O2 Flow Rate FiO2 02/20/17 11:19 36.4 70 18 151/88 (109) 92 Room Air 02/20/17 08:00 95 Room Air 02/20/17 07:22 36.5 60 18 160/84 (109) 95 Room Air 02/20/17 04:22 36.7 61 18 135/73 (93) 93 Room Air 02/20/17 04:00 Room Air Physical Exam: General- oriented x 3, not in distress, speaks in sentences with no effort Eyes-EOMI, anicteric Neck- no JVD Lungs- clear breath sounds bilaterally Heart- regular rhythm; no murmur, normal rate Abdomen- (+) area of induration superior to umbilicus, no hematoma but area with yellow tint, non tender, non distended, soft Extremities- no pretibial edema, no calf tenderness left leg: poor rom due to pain, sensation 100% Neuro- alert, oriented x 3; no gross focal deficits Skin- warm & dry Laboratory Results: Last 24 Hours Test 02/19/17 14:31 02/19/17 14:44 02/19/17 20:29 02/20/17 06:03 Urine Color YELLOW Urine Appearance CLOUDY Urine pH 7.5 Urine Specific [place] 1.015 Urine Protein NEG Urine Glucose (UA) 2+ Urine Ketones NEG Urine Occult Blood NEG Urine Nitrite NEG Urine Bilirubin NEG Urine Urobilinogen NEG Urine Leukocyte Esterase NEG Urine WBC (Auto) 1-5 /hpf Urine RBC (Auto) 0-4 /hpf Urine Hyaline Casts (Auto) 0 /lpf Urine Epithelial Cells (Auto) 0-5 /lpf Urine Bacteria (Auto) NEG White Blood Count 8.58 K/uL 7.19 K/uL Red Blood Count 5.07 M/uL 4.60 M/uL Hemoglobin 13.9 g/dL 12.6 g/dL Hematocrit 44.1 % 40.0 % Mean Corpuscular Volume 87.0 fL 87.0 fL Mean Corpuscular Hemoglobin 27.4 pg 27.4 pg Mean Corpuscular Hemoglobin Concent 31.5 g/dl 31.5 g/dl Platelet Count 172 K/uL 138 K/uL Mean Platelet Volume 10.8 fL 9.9 fL Neutrophils (%) (Auto) 67.0 % 64.4 % Lymphocytes (%) (Auto) 22.1 % 21.3 % Monocytes (%) (Auto) 8.0 % 10.4 % Eosinophils (%) (Auto) 2.4 % 3.2 % Basophils (%) (Auto) 0.2 % 0.3 % Neutrophils # (Auto) 5.73 K/uL 4.63 K/uL Lymphocytes # (Auto) 1.90 K/uL 1.53 K/uL Monocytes # (Auto) 0.69 K/uL 0.75 K/uL Eosinophils # (Auto) 0.21 K/uL 0.23 K/uL Basophils # (Auto) 0.02 K/uL 0.02 K/uL RDW Standard Deviation 50.4 fL 51.3 fL RDW Coefficient of Variation 15.9 % 16.1 % Immature Granulocyte % (Auto) 0.3 % 0.4 % Immature Granulocyte # (Auto) 0.03 K/uL 0.03 K/uL Prothrombin Time 11.8 SECONDS Prothromb Time International Ratio 1.1 Activated Partial Thromboplast Time 24.2 SECONDS Partial Thromboplastin Ratio 0.9 Sodium Level 142 mmol/L 141 mmol/L Potassium Level 3.9 mmol/L 3.5 mmol/L Chloride Level 105 mmol/L 104 mmol/L Carbon Dioxide Level 30 mmol/L 31 mmol/L Anion Gap 7.0 mmol/L 6.0 mmol/L Blood Urea Nitrogen 17 mg/dl 20 mg/dl Creatinine 1.00 mg/dl 1.00 mg/dl Est Creatinine Clear Calc Drug Dose 70.3 ml/min 65.6 ml/min Estimated GFR () 87.4 87.4 Estimated GFR (Non- 75.4 75.4 BUN/Creatinine Ratio 16.8 19.9 Random Glucose 173 mg/dl 182 mg/dl Calcium Level 9.2 mg/dl 8.8 mg/dl Total Bilirubin 0.6 mg/dl Direct Bilirubin 0.2 mg/dl Aspartate Amino Transf (AST/SGOT) 20 U/L Alanine Aminotransferase (ALT/SGPT) 18 U/L Alkaline Phosphatase 50 U/L Total Protein 7.1 gm/dl Albumin 3.9 gm/dl Lipase 148 U/L Bedside Glucose 141 mg/dl Test 02/20/17 07:55 Bedside Glucose 202 mg/dl Date/Time Source Procedure Growth Status 02/19/17 14:31 Urine , Clean Catch Urine Culture Pending Received Assessment & Plan Patient is a 71 year old male with history CAD s/p PM, A fib on Eliquis, DM, HTN, CKD 3, CHF Diastolic type presenting with left leg weakness and falls. LEFT LEG PAIN, WEAKNESS SECONDARY TO RADICULOPATHY - CT Lumbar spine noted - continue Lidoderm patch, Gabapentin, Tramadol PRN PT/OT Dr. Centeno consulted HYPERTENSION - improved - continue usual Carvedilol, Lisinopril POSSIBLE RECTUS SHEATH HEMATOMA - US of the abdomen: abdominal wall rectus sheath hematoma vs. abscess - patient report history of hernia mesh repair - hold Eliquis for now in case this is rectus sheath hematoma - Gen Surg consulted - resume Eliquis when ok with Surgery CAD, S/P PM stable A FIB ON ELIQUIS continue Amiodarone hold Eliquis for now DM hold Metformin continue ISS CKD 3 stable CHF DIASTOLIC TYPE euvolemic continue diuretics DVT proph scds for now usually on Eliquis Code status Full Code Dispo lives at home may need Rehab VTE Prophylaxis VTE Risk Assessment Done? Y/N: Yes Risk Level: Moderate Current Inpatient Medications: Current Inpatient Medications Medications (Trade) Dose Ordered Sig/Juliette Route Start Time Stop Time Status Last Admin Dose Admin Lidocaine (Lidoderm Patch 5%) 1 patch QAM TD 02/20/17 09:00 03/22/17 08:59 02/20/17 07:23 1 PATCH Miscellaneous (Remove Lidoderm Patch) 1 ea DAILY@21 N/A 02/19/17 21:00 03/21/17 20:59 Gabapentin (Neurontin Cap) 300 mg TID PO 02/19/17 21:00 03/21/17 20:59 02/20/17 07:20 300 MG Tramadol HCl (Ultram Tab) 50 mg Q6H PRN PO 02/19/17 19:00 03/21/17 18:59 02/20/17 09:22 50 MG Insulin Aspart (novoLOG ASPART) SLIDING SCALE If C... ACHS SC 02/19/17 21:00 03/21/17 20:59 02/20/17 08:08 3 UNITS Glucose (Glucose 40% Gel) 15-30 GRAMS 15 GRAMS... UD PRN PO 02/19/17 19:00 03/21/17 18:59 Glucose (Glucose Chew Tab) 4-8 Tablets 4 Tabl... UD PRN PO 02/19/17 19:00 03/21/17 18:59 Dextrose (Dextrose 50% 50ML Syringe) 25-50ML OF 50% DW IV FOR... UD PRN IV 02/19/17 19:00 03/21/17 18:59 Glucagon (Glucagon Inj) 1 mg UD PRN SQ 02/19/17 19:00 03/21/17 18:59 Acetaminophen (Tylenol Tab) 650 mg Q4H PRN PO 02/19/17 19:15 03/21/17 19:14 Ondansetron HCl (Zofran Inj) 4 mg Q6H PRN IV 02/19/17 19:15 03/21/17 19:14 Acetaminophen (Tylenol Tab) 1,000 mg Q8 PRN PO 02/19/17 19:30 03/21/17 19:29 Amiodarone HCl (Cordarone Tab) 200 mg QAM PO 02/20/17 09:00 03/22/17 08:59 02/20/17 07:23 200 MG Carvedilol (Coreg Tab) 37.5 mg BIDM PO 02/20/17 08:00 03/22/17 07:59 02/20/17 07:21 37.5 MG Fenofibrate (Tricor Tab) 145 mg DAILY PO 02/20/17 09:00 03/22/17 08:59 02/20/17 07:21 145 MG Acetaminophen/ Hydrocodone Bitart ([place] 5/325 Tab) 1 tab Q6H PRN PO 02/19/17 19:30 03/05/17 19:29 02/19/17 21:12 1 TAB Lisinopril (Zestril Tab) 20 mg BID PO 02/19/17 21:00 03/21/17 20:59 02/20/17 07:20 20 MG Magnesium Oxide (Mag-Ox Tab) 400 mg DAILY PO 02/20/17 09:00 03/22/17 08:59 02/20/17 07:21 400 MG Potassium Chloride (Klor-Con M10) 20 meq DAILY PO 02/20/17 09:00 03/22/17 08:59 02/20/17 07:20 20 MEQ Rosuvastatin Calcium (Crestor Tab) 20 mg HS PO 02/19/17 21:00 03/21/17 20:59 02/19/17 21:08 20 MG Spironolactone (Aldactone Tab) 12.5 mg DAILY PO 02/20/17 09:00 03/22/17 08:59 02/20/17 07:22 12.5 MG Terazosin HCl (Hytrin Cap) 5 mg HS PO 02/19/17 21:00 03/21/17 20:59 02/19/17 21:09 5 MG Furosemide (Lasix Tab) 40 mg QAM PO 02/20/17 09:00 03/22/17 08:59 02/20/17 07:22 40 MG Miscellaneous (Iv Fluids Completed) 1 ea PRN PRN N/A 02/19/17 20:30 02/19/18 20:29 Miscellaneous Information (Order Awaiting Action) 1 ea QS N/A 02/20/17 00:00 03/22/17 00:00
--- NOTE | 2017-02-20 14:15 | Orthopedic Consultation ---
Orthopedic Consultation Date of Consultation: Feb 20, 2017. Attending Physician: Kamron Gifford MD Reason for Consultation: Left leg radiculopathy and weakness History of Present Illness This is a 71-year-old gentleman well-known to our practice. He is undergone multilevel lumbar decompression with instrument infusion in [place] [address] Centeno. This was done on a more urgent basis due to his steady decline and bilateral lower extremity radiculopathy and weakness. Upon examination he states he has continued left leg radiculopathy in an L4 pattern as well as weakness. This has been throughout his entire postoperative course. He has had multiple falls over the past couple weeks due to the fact the left leg is buckling and giving out on him. He does family with a quad cane. He does have an upcoming appointment with me in the office 3 days from now as a normal postoperative evaluation. He has not had any recent physical therapy. Denies bowel or bladder dysfunction. He does not modest right lower extremity weakness and pain but nothing compared to the left. Takes Tylenol only at home for pain control. Past Medical/Surgical History Medical Problems: (1) Acute decompensated heart failure Status: Acute (2) Current use of anticoagulant therapy Status: Acute (3) Frequent falls Status: Acute (4) Hypertensive urgency Status: Acute (5) Hypertensive urgency Status: Acute (6) Intractable low back pain Status: Acute (7) Left leg pain Status: Acute (8) Lower back pain Status: Acute (9) Lumbar disc disease Status: Acute (10) Rectus sheath hematoma Status: Acute Family History Hypertension Kidney disease Stroke FATHER MOTHER Social History Smoking Status: Former Smoker Drug Use: none Marital Status: Housing Status: lives with significant other Occupation Status: retired Allergies Coded Allergies: No Known Allergies (Unverified , 02/19/17) Home Medications Scheduled Amiodarone Hcl (Cordarone), 200 MG PO QAM Apixaban (Eliquis), 5 MG PO BID Aspirin (Aspirin Ec), 81 MG PO QAM Carvedilol (Coreg), 37.5 MG PO BIDM Cholecalciferol (Vitamin D), 1,000 UNIT PO QAM Fenofibrate (Tricor), 145 MG PO DAILY Lisinopril (Prinivil), 20 MG PO BID Magnesium Oxide (Mag-Ox), 400 MG PO DAILY Metformin Hcl (Glucophage), 1,000 MG PO BIDM Potassium Chloride (Micro-K Ext Rel), 20 MEQ PO DAILY Rosuvastatin Calcium (Crestor), 20 MG PO HS Spironolactone (Aldactone), 12.5 MG PO DAILY Terazosin (Hytrin), 5 MG PO HS Scheduled PRN Acetaminophen (Tylenol), 1,000 MG PO Q8 PRN for Pain Furosemide (Lasix), 40 MG PO BID PRN for PRN Hydrocodone/Acetaminophen 5MG/325MG ([place] 5MG/325MG), 1-2 TAB PO Q4H PRN for Pain Lidocaine (Lidocaine), 1 PATCH TD UD PRN for Pain Nitroglycerin (Nitrostat), 0.4 MG UT UD PRN for Chest Pain Oxycodone HCl (Oxycodone HCl), 5-10 MG PO Q4H PRN for Moderate - severe pain Tramadol Hcl (Ultram), 50 MG PO Q6H PRN for Pain Current Inpatient Medications Current Inpatient Medications Medications (Trade) Dose Ordered Sig/Juliette Route Start Time Stop Time Status Last Admin Dose Admin Lidocaine (Lidoderm Patch 5%) 1 patch QAM TD 02/20/17 09:00 03/22/17 08:59 02/20/17 07:23 1 PATCH Miscellaneous (Remove Lidoderm Patch) 1 ea DAILY@21 N/A 02/19/17 21:00 03/21/17 20:59 Gabapentin (Neurontin Cap) 300 mg TID PO 02/19/17 21:00 03/21/17 20:59 02/20/17 13:07 300 MG Tramadol HCl (Ultram Tab) 50 mg Q6H PRN PO 02/19/17 19:00 03/21/17 18:59 02/20/17 09:22 50 MG Insulin Aspart (novoLOG ASPART) SLIDING SCALE If C... ACHS SC 02/19/17 21:00 03/21/17 20:59 02/20/17 12:39 5 UNITS Glucose (Glucose 40% Gel) 15-30 GRAMS 15 GRAMS... UD PRN PO 02/19/17 19:00 03/21/17 18:59 Glucose (Glucose Chew Tab) 4-8 Tablets 4 Tabl... UD PRN PO 02/19/17 19:00 03/21/17 18:59 Dextrose (Dextrose 50% 50ML Syringe) 25-50ML OF 50% DW IV FOR... UD PRN IV 02/19/17 19:00 03/21/17 18:59 Glucagon (Glucagon Inj) 1 mg UD PRN SQ 02/19/17 19:00 03/21/17 18:59 Acetaminophen (Tylenol Tab) 650 mg Q4H PRN PO 02/19/17 19:15 03/21/17 19:14 Ondansetron HCl (Zofran Inj) 4 mg Q6H PRN IV 02/19/17 19:15 03/21/17 19:14 Acetaminophen (Tylenol Tab) 1,000 mg Q8 PRN PO 02/19/17 19:30 03/21/17 19:29 Amiodarone HCl (Cordarone Tab) 200 mg QAM PO 02/20/17 09:00 03/22/17 08:59 02/20/17 07:23 200 MG Carvedilol (Coreg Tab) 37.5 mg BIDM PO 02/20/17 08:00 03/22/17 07:59 02/20/17 07:21 37.5 MG Fenofibrate (Tricor Tab) 145 mg DAILY PO 02/20/17 09:00 03/22/17 08:59 02/20/17 07:21 145 MG Acetaminophen/ Hydrocodone Bitart ([place] 5/325 Tab) 1 tab Q6H PRN PO 02/19/17 19:30 03/05/17 19:29 02/19/17 21:12 1 TAB Lisinopril (Zestril Tab) 20 mg BID PO 02/19/17 21:00 03/21/17 20:59 02/20/17 07:20 20 MG Magnesium Oxide (Mag-Ox Tab) 400 mg DAILY PO 02/20/17 09:00 03/22/17 08:59 02/20/17 07:21 400 MG Potassium Chloride (Klor-Con M10) 20 meq DAILY PO 02/20/17 09:00 03/22/17 08:59 02/20/17 07:20 20 MEQ Rosuvastatin Calcium (Crestor Tab) 20 mg HS PO 02/19/17 21:00 03/21/17 20:59 02/19/17 21:08 20 MG Spironolactone (Aldactone Tab) 12.5 mg DAILY PO 02/20/17 09:00 03/22/17 08:59 02/20/17 07:22 12.5 MG Terazosin HCl (Hytrin Cap) 5 mg HS PO 02/19/17 21:00 03/21/17 20:59 02/19/17 21:09 5 MG Furosemide (Lasix Tab) 40 mg QAM PO 02/20/17 09:00 03/22/17 08:59 02/20/17 07:22 40 MG Miscellaneous (Iv Fluids Completed) 1 ea PRN PRN N/A 02/19/17 20:30 02/19/18 20:29 Miscellaneous Information (Order Awaiting Action) 1 ea QS N/A 02/20/17 00:00 03/22/17 00:00 Review of Systems Left leg pain Left leg weakness Gait disturbance Back pain Physical Exam Date Time Temp Pulse Resp B/P (MAP) Pulse Ox O2 Delivery O2 Flow Rate FiO2 02/20/17 12:00 95 Room Air 02/20/17 11:19 36.4 70 18 151/88 (109) 92 Room Air 02/20/17 08:00 95 Room Air 02/20/17 07:22 36.5 60 18 160/84 (109) 95 Room Air 02/20/17 04:22 36.7 61 18 135/73 (93) 93 Room Air 02/20/17 04:00 Room Air 02/20/17 00:00 Room Air 02/19/17 23:41 37.0 62 18 154/85 (108) 94 Room Air 02/19/17 21:17 36.5 99 17 196/122 Room Air 02/19/17 20:13 70 18 183/94 95 02/19/17 19:02 70 20 183/94 94 Room Air 02/19/17 17:09 61 18 178/92 Room Air 02/19/17 16:08 78 196/91 94 Room Air 02/19/17 15:27 62 18 184/93 96 Room Air Patient is seen and room to 88 bed 1. He is in no obvious distress. Lumbar incision is well-healed. He does have a 3+ over 5 left EHL. Also has a 4 over 5 left dorsiflexion, plantar flexion, quadriceps, hamstrings. Right leg strength is intact. Nontender. No evidence of ankle clonus bilaterally. General Appearance: no apparent distress Head: normocephalic Eyes: normal inspection ENT: normal ENT inspection Neck: trachea midline Respiratory/Chest: no respiratory distress Cardiovascular: regular rate, rhythm Abdomen/GI: soft Back: no muscle spasm Neurologic/Psych: top lift nailer II-XII nml as tested Skin: normal color Laboratory Results Last 24 Hours Test 02/19/17 14:31 02/19/17 14:44 02/19/17 14:56 02/19/17 20:29 Urine Color YELLOW Urine Appearance CLOUDY Urine pH 7.5 Urine Specific [place] 1.015 Urine Protein NEG Urine Glucose (UA) 2+ Urine Ketones NEG Urine Occult Blood NEG Urine Nitrite NEG Urine Bilirubin NEG Urine Urobilinogen NEG Urine Leukocyte Esterase NEG Urine WBC (Auto) 1-5 /hpf Urine RBC (Auto) 0-4 /hpf Urine Hyaline Casts (Auto) 0 /lpf Urine Epithelial Cells (Auto) 0-5 /lpf Urine Bacteria (Auto) NEG White Blood Count 8.58 K/uL Red Blood Count 5.07 M/uL Hemoglobin 13.9 g/dL Hematocrit 44.1 % Mean Corpuscular Volume 87.0 fL Mean Corpuscular Hemoglobin 27.4 pg Mean Corpuscular Hemoglobin Concent 31.5 g/dl Platelet Count 172 K/uL Mean Platelet Volume 10.8 fL Neutrophils (%) (Auto) 67.0 % Lymphocytes (%) (Auto) 22.1 % Monocytes (%) (Auto) 8.0 % Eosinophils (%) (Auto) 2.4 % Basophils (%) (Auto) 0.2 % Neutrophils # (Auto) 5.73 K/uL Lymphocytes # (Auto) 1.90 K/uL Monocytes # (Auto) 0.69 K/uL Eosinophils # (Auto) 0.21 K/uL Basophils # (Auto) 0.02 K/uL RDW Standard Deviation 50.4 fL RDW Coefficient of Variation 15.9 % Immature Granulocyte % (Auto) 0.3 % Immature Granulocyte # (Auto) 0.03 K/uL Prothrombin Time 11.8 SECONDS Prothromb Time International Ratio 1.1 Activated Partial Thromboplast Time 24.2 SECONDS Partial Thromboplastin Ratio 0.9 Sodium Level 142 mmol/L Potassium Level 3.9 mmol/L Chloride Level 105 mmol/L Carbon Dioxide Level 30 mmol/L Anion Gap 7.0 mmol/L Blood Urea Nitrogen 17 mg/dl Creatinine 1.00 mg/dl Est Creatinine Clear Calc Drug Dose 70.3 ml/min Estimated GFR () 87.4 Estimated GFR (Non- 75.4 BUN/Creatinine Ratio 16.8 Random Glucose 173 mg/dl Calcium Level 9.2 mg/dl Total Bilirubin 0.6 mg/dl Direct Bilirubin 0.2 mg/dl Aspartate Amino Transf (AST/SGOT) 20 U/L Alanine Aminotransferase (ALT/SGPT) 18 U/L Alkaline Phosphatase 50 U/L Total Protein 7.1 gm/dl Albumin 3.9 gm/dl Lipase 148 U/L Bedside Troponin I 0.040 ng/ml Bedside Glucose 141 mg/dl Test 02/20/17 06:03 02/20/17 07:55 02/20/17 11:33 White Blood Count 7.19 K/uL Red Blood Count 4.60 M/uL Hemoglobin 12.6 g/dL Hematocrit 40.0 % Mean Corpuscular Volume 87.0 fL Mean Corpuscular Hemoglobin 27.4 pg Mean Corpuscular Hemoglobin Concent 31.5 g/dl Platelet Count 138 K/uL Mean Platelet Volume 9.9 fL Neutrophils (%) (Auto) 64.4 % Lymphocytes (%) (Auto) 21.3 % Monocytes (%) (Auto) 10.4 % Eosinophils (%) (Auto) 3.2 % Basophils (%) (Auto) 0.3 % Neutrophils # (Auto) 4.63 K/uL Lymphocytes # (Auto) 1.53 K/uL Monocytes # (Auto) 0.75 K/uL Eosinophils # (Auto) 0.23 K/uL Basophils # (Auto) 0.02 K/uL RDW Standard Deviation 51.3 fL RDW Coefficient of Variation 16.1 % Immature Granulocyte % (Auto) 0.4 % Immature Granulocyte # (Auto) 0.03 K/uL Sodium Level 141 mmol/L Potassium Level 3.5 mmol/L Chloride Level 104 mmol/L Carbon Dioxide Level 31 mmol/L Anion Gap 6.0 mmol/L Blood Urea Nitrogen 20 mg/dl Creatinine 1.00 mg/dl Est Creatinine Clear Calc Drug Dose 65.6 ml/min Estimated GFR () 87.4 Estimated GFR (Non- 75.4 BUN/Creatinine Ratio 19.9 Random Glucose 182 mg/dl Calcium Level 8.8 mg/dl Bedside Glucose 202 mg/dl 208 mg/dl Patient: BRITTNEE FOSTER JR Address1: [address] [facility] Rec: [id number] Address2: Acct ID: [id number] [facility] Zip: [address] [place] [address] Date: 1945 Sex: M Room/Bed: Ref Phy: Crow Garcia D.O. SC: KLARISSA Att Phy: Report #: [id number] Tish Phy: Crow Garcia D.O. Test: LSWO Admit Phy: Air Vice Marshal: GUTIERREZ Interpreting Phy: Aram Luevano D.O. Diagnosis: WEAKNESS Ordering Phy: Bo Aiken M.D. Service Date: 02/19/17 Admit Date: 02/19/17 MNE: [id number] CONF: DICTATED BY: Aram Luevano D.O.]] CC: Bo Aiken M.D. Sulman, Scott A., D.O. Endcc: [~ rep ct add3]] LUMBAR SPINE WITHOUT HISTORY: 71 years-old Male acute trauma. COMPARISON: CT lumbar spine 09/13/2016 TECHNIQUE: Multiple axial CT images of the lumbar spine were obtained without IV contrast. A dose lowering technique was used consistent with the principals of ALARA. FINDINGS: Prior posterior decompression with interbody yola and screw fusion seen at L2-S1. No evidence of hardware complication or malalignment. Vertebral body heights are well-maintained without compression deformity. The imaged posterior elements are intact. No sacral fracture identified. There is mild convex left curvature of the lumbar spine of less than 10 degrees. Degenerative changes are seen within the sacroiliac joints with multilevel discogenic degenerative changes. The imaged ribs appear intact. There is atherosclerotic plaquing of the abdominal aorta and iliac vasculature. Right-sided nephrolithiasis redemonstrated. Evaluation of the intervertebral disc spaces is limited secondary to streak artifact from hardware. T12-L1: Mild intervertebral disc space narrowing without significant central canal or foraminal narrowing. L1-L2: Mild intervertebral disc space narrowing and facet arthrosis without central canal narrowing. There is mild inferior bilateral foraminal narrowing. L2-L3: Moderate intervertebral disc space narrowing with posterior spondylitic ridging, facet arthrosis and circumferential annular disc bulge causes effacement of the ventral thecal sac and causes mild to moderate left and mild right foraminal narrowing. L3-L4: Moderate intervertebral disc space narrowing with posterior spondylitic ridging and facet arthrosis. There is effacement of the ventral thecal sac with moderate left and [id number] right foraminal narrowing. L4-L5: Moderate posterior intervertebral disc space narrowing with posterior disc osteophyte complex and facet arthrosis causes effacement of the ventral thecal sac, mild to moderate right and mild left foraminal stenosis. L5-S1: Severe intervertebral disc space narrowing with posterior disc osteophyte complex measuring up to 9 mm in AP dimension with facet arthrosis causes severe central canal, severe left and moderate right foraminal narrowing. IMPRESSION: 1. No acute lumbar spine fracture or dislocation. 2. Prior posterior decompression with interbody yola and screw fixation at L2-S1. No evidence of hardware complication or malalignment. 3. Multilevel discogenic degenerative changes and facet arthropathy resulting in varying degrees of central canal and foraminal narrowing as above, most pronounced at L5-S1. The above report was generated using voice recognition software. It may contain grammatical, syntax or spelling errors. Electronically signed by: Daniel Luevano M.D. 02/19/2017 4:08 PM Dictated Date/Time: 02/19/2017 3:44 PM The status of this report is Signed. Draft = Not yet reviewed or approved by Radiologist. Signed = Reviewed and approved by Radiologist. <AttendingPhy></AttendingPhy> <FamilyPhy>Crow Garcia D.OLaura</FamilyPhy> < PrimaryPhy>Crow Garcia D.O.</PrimaryPhy> <UnitNumber>[id number]</UnitNumber > <VisitNumber>[id number]</VisitNumber> <PatientName>BRITTNEE FOSTER JR</ PatientName> <DateOfBirth>1945</DateOfBirth> <Location>[facility]</Location> < ServiceDate>02/19/17</ServiceDate> <MNE>ESINDI</MNE> <OrderingPhy>Bo Aiken M.D.</OrderingPhy> <OrderingPhyMNE>f rep ord dr Assessment & Plan Chronic left leg radiculopathy. Chronic left leg weakness. Lumbar CT is also been reviewed by Dr. Centeno. He has no acute findings. No findings that would warrant surgical intervention. At this point in time plan is to start physical therapy specifically focusing on bilateral lower extremity strengthening exercises. May consider Neurontin for his chronic nerve pain. We can reschedule his office visit for a few weeks from now. Please to not hesitate to contact us if you have any further questions.
--- NOTE | 2017-02-20 16:36 | Surgery Consultation ---
Consultation Date of Consultation: Feb 20, 2017. Attending Physician: Kamron Gifford MD Reason for Consultation: Abdominal mass vs. Hematoma (Amina Castañeda PA-C) History of Present Illness Rayray is a 71 year-old male who presented to [facility] with complaint of left leg numbness and fall x 3. He underwent series of CT scan including CT scan of abdomen and pelvis given fall history which showed a dense ovoid circumscribed lesion or collection of the midline anterior abdominal wall centered within the region of the linea alba is seen, Differential considerations would include atypical rectus sheath hematoma or soft tissue neoplasm. Rayray denies of any fever, chills, nausea, vomiting, abdominal pain, redness around the umbilicus, changes at the umbilicus since his surgery. He is tolerating regular diet without difficulty. Does take Eliquis. (Amina Castañeda PA-C) Past Medical/Surgical History Past Medical History: (1) CAD (coronary artery disease) Permanent Comment: Non-obstructive by cath in 2009 Status: Chronic (2) Chronic diastolic CHF (congestive heart failure), NYHA class 1 Permanent Comment: Echo 05/2015- EF 65-69%, grade II diastolic dysfunction, mild AV regurgitation, mildly enlarged aortic root and proximal ascending aorta Status: Chronic (3) CKD (chronic kidney disease), stage III Status: Chronic (4) DM type 2 (diabetes mellitus, type 2) Status: Chronic (5) Dyslipidemia Status: Chronic (6) Hypertension Status: Chronic (7) Paroxysmal a-fib Permanent Comment: on apixaban Status: Chronic (8) Sleep apnea Permanent Comment: s/p UPPP Status: Chronic (9) Tachy-aquiles syndrome Permanent Comment: S/P pacemaker in 2013 Status: Chronic Surgical Problems: (1) H/O inguinal hernia repair Status: Chronic (2) H/O palate surgery Status: Chronic (3) H/O umbilical hernia repair Status: Chronic (4) History of cataract surgery Status: Chronic (Amina Castañeda PA-C) Family History Hypertension Kidney disease Stroke FATHER MOTHER (Amina Castañeda PA-C) Hypertension Kidney disease Stroke FATHER MOTHER (Shawn Chinchilla M.D.) Social History Smoking Status: Former Smoker Drug Use: none Marital Status: Housing Status: lives with significant other Occupation Status: retired (Amina Castañeda ., MIKE) Allergies Coded Allergies: No Known Allergies (Unverified , 02/19/17) Home Medications Scheduled Amiodarone Hcl (Cordarone), 200 MG PO QAM Apixaban (Eliquis), 5 MG PO BID Aspirin (Aspirin Ec), 81 MG PO QAM Carvedilol (Coreg), 37.5 MG PO BIDM Cholecalciferol (Vitamin D), 1,000 UNIT PO QAM Fenofibrate (Tricor), 145 MG PO DAILY Lisinopril (Prinivil), 20 MG PO BID Magnesium Oxide (Mag-Ox), 400 MG PO DAILY Metformin Hcl (Glucophage), 1,000 MG PO BIDM Potassium Chloride (Micro-K Ext Rel), 20 MEQ PO DAILY Rosuvastatin Calcium (Crestor), 20 MG PO HS Spironolactone (Aldactone), 12.5 MG PO DAILY Terazosin (Hytrin), 5 MG PO HS Scheduled PRN Acetaminophen (Tylenol), 1,000 MG PO Q8 PRN for Pain Furosemide (Lasix), 40 MG PO BID PRN for PRN Hydrocodone/Acetaminophen 5MG/325MG (Monument 5MG/325MG), 1-2 TAB PO Q4H PRN for Pain Lidocaine (Lidocaine), 1 PATCH TD UD PRN for Pain Nitroglycerin (Nitrostat), 0.4 MG UT UD PRN for Chest Pain Oxycodone HCl (Oxycodone HCl), 5-10 MG PO Q4H PRN for Moderate - severe pain Tramadol Hcl (Ultram), 50 MG PO Q6H PRN for Pain Current Inpatient Medications Current Inpatient Medications Medications (Trade) Dose Ordered Sig/Juliette Route Start Time Stop Time Status Last Admin Dose Admin Lidocaine (Lidoderm Patch 5%) 1 patch QAM TD 02/20/17 09:00 03/22/17 08:59 02/20/17 07:23 1 PATCH Miscellaneous (Remove Lidoderm Patch) 1 ea DAILY@21 N/A 02/19/17 21:00 03/21/17 20:59 Gabapentin (Neurontin Cap) 300 mg TID PO 02/19/17 21:00 03/21/17 20:59 02/20/17 13:07 300 MG Tramadol HCl (Ultram Tab) 50 mg Q6H PRN PO 02/19/17 19:00 03/21/17 18:59 02/20/17 09:22 50 MG Insulin Aspart (novoLOG ASPART) SLIDING SCALE If C... ACHS SC 02/19/17 21:00 03/21/17 20:59 02/20/17 12:39 5 UNITS Glucose (Glucose 40% Gel) 15-30 GRAMS 15 GRAMS... UD PRN PO 02/19/17 19:00 03/21/17 18:59 Glucose (Glucose Chew Tab) 4-8 Tablets 4 Tabl... UD PRN PO 02/19/17 19:00 03/21/17 18:59 Dextrose (Dextrose 50% 50ML Syringe) 25-50ML OF 50% DW IV FOR... UD PRN IV 02/19/17 19:00 03/21/17 18:59 Glucagon (Glucagon Inj) 1 mg UD PRN SQ 02/19/17 19:00 03/21/17 18:59 Acetaminophen (Tylenol Tab) 650 mg Q4H PRN PO 02/19/17 19:15 03/21/17 19:14 Ondansetron HCl (Zofran Inj) 4 mg Q6H PRN IV 02/19/17 19:15 03/21/17 19:14 Acetaminophen (Tylenol Tab) 1,000 mg Q8 PRN PO 02/19/17 19:30 03/21/17 19:29 Amiodarone HCl (Cordarone Tab) 200 mg QAM PO 02/20/17 09:00 03/22/17 08:59 02/20/17 07:23 200 MG Carvedilol (Coreg Tab) 37.5 mg BIDM PO 02/20/17 08:00 03/22/17 07:59 02/20/17 07:21 37.5 MG Fenofibrate (Tricor Tab) 145 mg DAILY PO 02/20/17 09:00 03/22/17 08:59 02/20/17 07:21 145 MG Acetaminophen/ Hydrocodone Bitart (Monument 5/325 Tab) 1 tab Q6H PRN PO 02/19/17 19:30 03/05/17 19:29 02/19/17 21:12 1 TAB Lisinopril (Zestril Tab) 20 mg BID PO 02/19/17 21:00 03/21/17 20:59 02/20/17 07:20 20 MG Magnesium Oxide (Mag-Ox Tab) 400 mg DAILY PO 02/20/17 09:00 03/22/17 08:59 02/20/17 07:21 400 MG Potassium Chloride (Klor-Con M10) 20 meq DAILY PO 02/20/17 09:00 03/22/17 08:59 02/20/17 07:20 20 MEQ Rosuvastatin Calcium (Crestor Tab) 20 mg HS PO 02/19/17 21:00 03/21/17 20:59 02/19/17 21:08 20 MG Spironolactone (Aldactone Tab) 12.5 mg DAILY PO 02/20/17 09:00 03/22/17 08:59 02/20/17 07:22 12.5 MG Terazosin HCl (Hytrin Cap) 5 mg HS PO 02/19/17 21:00 03/21/17 20:59 02/19/17 21:09 5 MG Furosemide (Lasix Tab) 40 mg QAM PO 02/20/17 09:00 03/22/17 08:59 02/20/17 07:22 40 MG Miscellaneous (Iv Fluids Completed) 1 ea PRN PRN N/A 02/19/17 20:30 02/19/18 20:29 Miscellaneous Information (Order Awaiting Action) 1 ea QS N/A 02/20/17 00:00 03/22/17 00:00 (Amina Castañeda, PA-C) Review of Systems Constitutional: No fever, No chills, No sweats Abdomen: No pain, No nausea, No vomiting, No diarrhea, No constipation Hematologic / Lymphatic: No abnormal bleeding/bruising Integumentary: No rash (Amina Castañeda, PA-C) Physical Exam Date Time Temp Pulse Resp B/P (MAP) Pulse Ox O2 Delivery O2 Flow Rate FiO2 02/20/17 15:54 36.5 62 20 131/80 (97) 96 Room Air 02/20/17 15:13 36.4 70 18 95 02/20/17 12:00 95 Room Air 02/20/17 11:19 36.4 70 18 151/88 (109) 92 Room Air 02/20/17 08:00 95 Room Air 02/20/17 07:22 36.5 60 18 160/84 (109) 95 Room Air 02/20/17 04:22 36.7 61 18 135/73 (93) 93 Room Air 02/20/17 04:00 Room Air 02/20/17 00:00 Room Air 02/19/17 23:41 37.0 62 18 154/85 (108) 94 Room Air 02/19/17 21:17 36.5 99 17 196/122 Room Air 02/19/17 20:13 70 18 183/94 95 02/19/17 19:02 70 20 183/94 94 Room Air 02/19/17 17:09 61 18 178/92 Room Air General Appearance: + mild distress, + obese Head: normocephalic, atraumatic Eyes: sclerae normal ENT: hearing grossly normal Neck: trachea midline Respiratory/Chest: no respiratory distress, no accessory muscle use Abdomen/GI: normal bowel sounds, non tender, soft, no organomegaly, no pulsatile mass, + pertinent finding (slight ecchymosis at umbilicus, no induration, fluctuance, ) Neurologic/Psych: alert, oriented x 3 Skin: normal color, warm/dry, no rash (Amina Castañeda ., PA-C) Laboratory Results Last 24 Hours Test 02/19/17 20:29 02/20/17 06:03 02/20/17 07:55 02/20/17 11:33 Bedside Glucose 141 mg/dl 202 mg/dl 208 mg/dl White Blood Count 7.19 K/uL Red Blood Count 4.60 M/uL Hemoglobin 12.6 g/dL Hematocrit 40.0 % Mean Corpuscular Volume 87.0 fL Mean Corpuscular Hemoglobin 27.4 pg Mean Corpuscular Hemoglobin Concent 31.5 g/dl Platelet Count 138 K/uL Mean Platelet Volume 9.9 fL Neutrophils (%) (Auto) 64.4 % Lymphocytes (%) (Auto) 21.3 % Monocytes (%) (Auto) 10.4 % Eosinophils (%) (Auto) 3.2 % Basophils (%) (Auto) 0.3 % Neutrophils # (Auto) 4.63 K/uL Lymphocytes # (Auto) 1.53 K/uL Monocytes # (Auto) 0.75 K/uL Eosinophils # (Auto) 0.23 K/uL Basophils # (Auto) 0.02 K/uL RDW Standard Deviation 51.3 fL RDW Coefficient of Variation 16.1 % Immature Granulocyte % (Auto) 0.4 % Immature Granulocyte # (Auto) 0.03 K/uL Sodium Level 141 mmol/L Potassium Level 3.5 mmol/L Chloride Level 104 mmol/L Carbon Dioxide Level 31 mmol/L Anion Gap 6.0 mmol/L Blood Urea Nitrogen 20 mg/dl Creatinine 1.00 mg/dl Est Creatinine Clear Calc Drug Dose 65.6 ml/min Estimated GFR () 87.4 Estimated GFR (Non- 75.4 BUN/Creatinine Ratio 19.9 Random Glucose 182 mg/dl Calcium Level 8.8 mg/dl ABD/PELVIS NO IV OR ORAL CONT HISTORY: 71 years-old Male acute abdominal trauma. COMPARISON: Lumbar spine CT of same day. TECHNIQUE: Multiple axial CT images of the abdomen and pelvis were obtained without contrast. A dose lowering technique was used consistent with the principals of JETT. FINDINGS: The liver, spleen, gallbladder and right adrenal gland are unremarkable. There is thickening of the left gland suggesting hyperplasia. There is a circumscribed homogeneous cystic-appearing lesion of the anterior pancreatic body, 1.5 x 2.1 cm which is nonspecific however suggests a sidebranch IPMN. There are a few nonobstructing renal calculi on the right. There is a linear 6 mm calcific density of the interpolar right kidney suggesting calculus or vascular calcification. Low attenuating 1.5 similar lesion of the anterior interpolar left kidney suggests cyst however is indeterminate. There is no hydronephrosis. The urinary bladder is unremarkable. Prostate is mildly prominent. There is moderate atherosclerotic plaquing of the abdominal aorta. No bulky adenopathy. There is no bowel obstruction. Noninflamed colonic diverticula are seen. The appendix appears normal. There is a dense ovoid circumscribed collection, 4.1 x 5.2 x 5.0 cm in AP, transverse and craniocaudal dimensions involving the central periumbilical abdominal wall in the region of the linea alba. The remaining soft tissues are unremarkable. Bones are mildly demineralized. This limits evaluation for acute nondisplaced fracture. Multilevel advanced discogenic degenerative changes of the spine are seen. Posterior interbody yola and screw fusion hardware extends from L2-S1. Its of hardware complication. IMPRESSION: 1. Dense ovoid circumscribed lesion or collection of the midline anterior abdominal wall centered within the region of the linea alba is seen, 4.1 x 5.2 x 5.0 cm and protrudes into the peritoneal margin of the abdomen. Differential considerations would include atypical rectus sheath hematoma or soft tissue neoplasm. Correlate with clinical exam and patient presentation. 2. No evidence of acute solid organ injury or fracture. 3. 1.5 cm cystic lesion of the anterior pancreatic body is nonspecific however suggests a sidebranch IPMN. (Amina Castañeda ., PA-C) Assessment & Plan Abdominal wall hematoma vs soft tissue mass -vitals stable - no leukocytosis - abdomen soft, benign, nontender, no signs of induration or fluctuance. Minimal ecchymosis at umbilicus Plan: No acute surgical intervention required, abdomen benign Would recommend repeat US in 3-4 months to see if the collection vs mass has decreased in size Continue current medical management Dr. Chinchilla has seen and examined patient, agrees with above (Amina Castañeda ., PA-C) I interviewed and examined this patient and reviewed his labs and radiology studies and I agree with the above note. This is most like;y a hematoma that would require no surgical intervention at this time. Consider a repeat ultrasound in 2-3 months. (Shawn Chinchilla M.D.)
[2017-02-20] MEDS: ROSUVASTATIN CALCIUM 20 MG TAB PO SCH (20:20)
[2017-02-20] MEDS: APIXABAN 2.5 MG TAB PO SCH (21:09)
[2017-02-21] MEDS: TRAMADOL HCL 50 MG TAB PO PRN ×3 (06:22→21:47)
[2017-02-21 07:18] VITALS: BP 147/76; PULSE 61; TEMP 36.8; O2SAT 93
[2017-02-21 07:25] LABS: BASO % 0.2 %; BASO ABS # 0.02 K/uL (0-0.2); COMPLETE YES; EOS % 2.7 %; HEMATOCRIT 41.9 % (42-52); IG% 0.3 %; LYMPH % 16.8 %; LYMPH ABS # 1.51 K/uL (1.2-3.4); MEAN CELL VOLUME 88.4 fL (80-100); MEAN CORPUSCULAR HEMOGLOBIN 26.6 pg (25-34); MEAN CORPUSCULAR HGB CONC 30.1 g/dl (32-36); MEAN PLATELET VOLUME 10.1 fL (7.4-10.4); MONO % 9.8 %; NEUT % 70.2 %; PLATELET COUNT 145 K/uL (130-400); RED BLOOD COUNT 4.74 M/uL (4.7-6.1)
[2017-02-21 07:59] LABS: BUN/CREATININE RATIO 16.3 (10-20); CALCIUM 9.2 mg/dl (8.5-10.1); CREATININE 1.1 mg/dl (0.60-1.40); POTASSIUM 3.7 mmol/L (3.5-5.1)
--- NOTE | 2017-02-21 09:00 | Surgery Progress Note ---
Surgery Progress Note Date of Service Feb 21, 2017. Subjective Post OP Day: HD # 2 + feeling well, + diet, No nausea, No vomiting still having left leg pain, pain medication helping + back pain from the bed No abdominal pain, nausea, or vomiting Objective Vital Signs: Date Time Temp Pulse Resp B/P (MAP) Pulse Ox O2 Delivery O2 Flow Rate FiO2 02/21/17 07:18 36.8 61 16 147/76 (99) 93 Room Air 02/21/17 00:00 Room Air 02/20/17 23:10 36.9 60 18 121/72 (88) 95 Room Air 02/20/17 16:30 96 Room Air 02/20/17 15:54 36.5 62 20 131/80 (97) 96 Room Air 02/20/17 15:13 36.4 70 18 95 02/20/17 12:00 95 Room Air 02/20/17 11:19 36.4 70 18 151/88 (109) 92 Room Air General Appearance: WD/WN, no apparent distress, + obese Head: normocephalic, atraumatic Respiratory/Chest: no respiratory distress, no accessory muscle use Abdomen: non tender, non distended, soft Laboratory Results: Results Past 24 Hours Test 02/20/17 11:33 02/20/17 16:58 02/20/17 20:41 02/21/17 06:55 Range/Units Bedside Glucose 208 185 156 70-99 mg/dl White Blood Count 9.00 4.8-10.8 K/uL Red Blood Count 4.74 4.7-6.1 M/uL Hemoglobin 12.6 14.0-18.0 g/dL Hematocrit 41.9 42-52 % Mean Corpuscular Volume 88.4 80-100 fL Mean Corpuscular Hemoglobin 26.6 25-34 pg Mean Corpuscular Hemoglobin Concent 30.1 32-36 g/dl Platelet Count 145 130-400 K/uL Mean Platelet Volume 10.1 7.4-10.4 fL Neutrophils (%) (Auto) 70.2 % Lymphocytes (%) (Auto) 16.8 % Monocytes (%) (Auto) 9.8 % Eosinophils (%) (Auto) 2.7 % Basophils (%) (Auto) 0.2 % Neutrophils # (Auto) 6.32 1.4-6.5 K/uL Lymphocytes # (Auto) 1.51 1.2-3.4 K/uL Monocytes # (Auto) 0.88 0.11-0.59 K/uL Eosinophils # (Auto) 0.24 0-0.5 K/uL Basophils # (Auto) 0.02 0-0.2 K/uL RDW Standard Deviation 51.8 36.4-46.3 fL RDW Coefficient of Variation 16.1 11.5-14.5 % Immature Granulocyte % (Auto) 0.3 % Immature Granulocyte # (Auto) 0.03 0.00-0.02 K/uL Sodium Level 138 136-145 mmol/L Potassium Level 3.7 3.5-5.1 mmol/L Chloride Level 101 98-107 mmol/L Carbon Dioxide Level 31 21-32 mmol/L Anion Gap 6.0 3-11 mmol/L Blood Urea Nitrogen 18 7-18 mg/dl Creatinine 1.10 0.60-1.40 mg/dl Est Creatinine Clear Calc Drug Dose 59.6 ml/min Estimated GFR () 77.9 Estimated GFR (Non- 67.2 BUN/Creatinine Ratio 16.3 10-20 Random Glucose 172 70-99 mg/dl Calcium Level 9.2 8.5-10.1 mg/dl Test 02/21/17 08:05 Range/Units Bedside Glucose 171 70-99 mg/dl Assessment & Plan Abdominal wall mass vs Hematoma? - vitals stable - abdominal examination benign, no pain - H&H stable Plan: No surgical intervention required at this time Recommend repeat US in 2-3 months Continue medical management Our services signing off at this time, call with any concerns Discussed this patient with Dr. Chinchilla who agrees with above.
[2017-02-21] MEDS: INSULIN ASPART 100 UNITS/ML 3 ML PEN SC SCH ×4 (09:44→20:59)
[2017-02-21] MEDS: CARVEDILOL 25 MG TAB PO SCH ×2 (09:45→18:30)
[2017-02-21] MEDS: SPIRONOLACTONE 25 MG TAB PO SCH (09:46)
[2017-02-21] MEDS: AMIODARONE 200 MG TAB PO SCH (09:48)
[2017-02-21] MEDS: APIXABAN 2.5 MG TAB PO SCH ×2 (09:50→21:01)
[2017-02-21] MEDS: POTASSIUM CHLORIDE 10 MEQ TABCR PO SCH (09:50)
[2017-02-21] MEDS: FENOFIBRATE 145 MG TAB PO SCH (09:51)
[2017-02-21] MEDS: GABAPENTIN 300 MG CAP PO SCH ×3 (09:51→21:01)
[2017-02-21] MEDS: MAGNESIUM OXIDE 400 MG TAB PO SCH (09:51)
[2017-02-21] MEDS: FUROSEMIDE 40 MG TAB PO SCH (09:52)
[2017-02-21] MEDS: LIDODERM (LIDOCAINE) PATCH 5% TD SCH (09:53)
[2017-02-21] MEDS: LISINOPRIL 20 MG TAB PO SCH ×2 (09:53→21:01)
--- NOTE | 2017-02-21 14:23 | Progress Note ---
Internal Med Progress Note Date of Service: Feb 21, 2017. Provider Documentation: SUBJECTIVE: Seen and examined at bedside. States having tingling and chronic left leg weakness Denies chest pain, SOB Offers no other complaints OBJECTIVE: Vital Signs-as noted below Physical Exam: General Appearance:Moderately built and nourished, no apparent distress Head: normocephalic, Atraumatic Eyes: normal inspection, EOMI, PERRL Neck: supple, Trachea midline Respiratory/Chest: Normal breath sounds, CTA Cardiovascular: S1, S2, No murmur Abdomen/GI:Soft, Non tender, Bowel sounds present Extremities/Musculoskelatal:normal inspection, no edema Neurologic/Psych:grossly no focal neurological deficits other than LLE weakness Skin: normal color, warm Lab data as noted below. ASSESSMENT & PLAN: Patient is a 71 yr male with history CAD s/p PM, A fib on Eliquis, DM, HTN, CKD 3, CHF diastolic type presenting with left leg weakness and falls. Left Leg radiculopathy and weakness S/P multilevel lumbar decompression with instrument infusion in August [address] Lumbar spine noted No acute lumbar spine fracture or dislocation. No evidence of hardware complication or malalignment. continue Lidoderm patch, Gabapentin, Tramadol PRN PT/OT: recommends rehab Appreciate Orthopedics Input Hypertension continue Carvedilol, Lisinopril Possible Rectus Sheath Hematoma US of the abdomen: abdominal wall rectus sheath hematoma vs. abscess H/O hernia mesh repair Resumed Eliquis, Hb stable Appreciate Surgery Input No surgical intervention required at this time Needs repeat US in 2-3 months Denies nausea, vomiting, abd pain CAD, S/P PM stable A FIB on Eliquis continue Amiodarone DM II hold Metformin continue ISS CKD III stable CHF DIASTOLIC TYPE euvolemic continue diuretics DVT Px: on Eliquis Code status Full Code Dispo lives at home Needs Rehab placement Vital Signs: Date Time Temp Pulse Resp B/P (MAP) Pulse Ox O2 Delivery O2 Flow Rate FiO2 02/21/17 15:00 36.7 75 18 105/69 (81) 92 Room Air 02/21/17 07:20 Room Air 02/21/17 07:18 36.8 61 16 147/76 (99) 93 Room Air 02/21/17 00:00 Room Air 02/20/17 23:10 36.9 60 18 121/72 (88) 95 Room Air 02/20/17 16:30 96 Room Air Lab Results: Results Past 24 Hours Test 02/20/17 16:58 02/20/17 20:41 02/21/17 06:55 02/21/17 08:05 Range/Units Bedside Glucose 185 156 171 70-99 mg/dl White Blood Count 9.00 4.8-10.8 K/uL Red Blood Count 4.74 4.7-6.1 M/uL Hemoglobin 12.6 14.0-18.0 g/dL Hematocrit 41.9 42-52 % Mean Corpuscular Volume 88.4 80-100 fL Mean Corpuscular Hemoglobin 26.6 25-34 pg Mean Corpuscular Hemoglobin Concent 30.1 32-36 g/dl Platelet Count 145 130-400 K/uL Mean Platelet Volume 10.1 7.4-10.4 fL Neutrophils (%) (Auto) 70.2 % Lymphocytes (%) (Auto) 16.8 % Monocytes (%) (Auto) 9.8 % Eosinophils (%) (Auto) 2.7 % Basophils (%) (Auto) 0.2 % Neutrophils # (Auto) 6.32 1.4-6.5 K/uL Lymphocytes # (Auto) 1.51 1.2-3.4 K/uL Monocytes # (Auto) 0.88 0.11-0.59 K/uL Eosinophils # (Auto) 0.24 0-0.5 K/uL Basophils # (Auto) 0.02 0-0.2 K/uL RDW Standard Deviation 51.8 36.4-46.3 fL RDW Coefficient of Variation 16.1 11.5-14.5 % Immature Granulocyte % (Auto) 0.3 % Immature Granulocyte # (Auto) 0.03 0.00-0.02 K/uL Sodium Level 138 136-145 mmol/L Potassium Level 3.7 3.5-5.1 mmol/L Chloride Level 101 98-107 mmol/L Carbon Dioxide Level 31 21-32 mmol/L Anion Gap 6.0 3-11 mmol/L Blood Urea Nitrogen 18 7-18 mg/dl Creatinine 1.10 0.60-1.40 mg/dl Est Creatinine Clear Calc Drug Dose 59.6 ml/min Estimated GFR () 77.9 Estimated GFR (Non- 67.2 BUN/Creatinine Ratio 16.3 10-20 Random Glucose 172 70-99 mg/dl Calcium Level 9.2 8.5-10.1 mg/dl Test 02/21/17 12:05 Range/Units Bedside Glucose 196 70-99 mg/dl
[2017-02-21 15:00] VITALS: BP 105/69; PULSE 75; TEMP 36.7; O2SAT 92
[2017-02-21] MEDS: ROSUVASTATIN CALCIUM 20 MG TAB PO SCH (21:01)
[2017-02-21 23:12] VITALS: BP 118/72; PULSE 64; TEMP 36.8; O2SAT 95
[2017-02-22 07:26] VITALS: BP 108/67; PULSE 65; TEMP 36.9; O2SAT 93
[2017-02-22] MEDS: HYDROCODONE/ACETAMOPHEN 5/325MG TAB PO PRN (07:51)
[2017-02-22 08:52] LABS: BUN/CREATININE RATIO 18.1 (10-20); CALCIUM 9.1 mg/dl (8.5-10.1); CREATININE 1.1 mg/dl (0.60-1.40); POTASSIUM 3.8 mmol/L (3.5-5.1)
[2017-02-22 09:00] LABS: BASO % 0.3 %; BASO ABS # 0.02 K/uL (0-0.2); COMPLETE YES; EOS % 2.5 %; HEMATOCRIT 39.7 % (42-52); IG% 0.5 %; LYMPH % 23.3 %; LYMPH ABS # 1.84 K/uL (1.2-3.4); MEAN CELL VOLUME 87.3 fL (80-100); MEAN CORPUSCULAR HEMOGLOBIN 27.9 pg (25-34); MEAN PLATELET VOLUME 10.1 fL (7.4-10.4); MONO % 11.4 %; PLATELET COUNT 147 K/uL (130-400); RED BLOOD COUNT 4.55 M/uL (4.7-6.1); WHITE BLOOD COUNT 7.91 K/uL (4.8-10.8)
[2017-02-22] MEDS: CARVEDILOL 25 MG TAB PO SCH ×2 (09:34→16:43)
[2017-02-22] MEDS: SPIRONOLACTONE 25 MG TAB PO SCH (09:36)
[2017-02-22] MEDS: FUROSEMIDE 40 MG TAB PO SCH (09:37)
[2017-02-22] MEDS: POTASSIUM CHLORIDE 10 MEQ TABCR PO SCH (09:37)
[2017-02-22] MEDS: FENOFIBRATE 145 MG TAB PO SCH (09:38)
[2017-02-22] MEDS: APIXABAN 2.5 MG TAB PO SCH (09:38)
[2017-02-22] MEDS: MAGNESIUM OXIDE 400 MG TAB PO SCH (09:38)
[2017-02-22] MEDS: GABAPENTIN 300 MG CAP PO SCH ×2 (09:39→13:39)
[2017-02-22] MEDS: LISINOPRIL 20 MG TAB PO SCH (09:40)
[2017-02-22] MEDS: LIDODERM (LIDOCAINE) PATCH 5% TD SCH (09:41)
[2017-02-22] MEDS: AMIODARONE 200 MG TAB PO SCH (09:41)
[2017-02-22] MEDS: INSULIN ASPART 100 UNITS/ML 3 ML PEN SC SCH ×3 (09:45→18:32)
--- NOTE | 2017-02-22 13:11 | Progress Note ---
Internal Med Progress Note Date of Service: Feb 22, 2017. Provider Documentation: SUBJECTIVE: Seen and examined at bedside. Persistent tingling and chronic left leg weakness No new symptoms Denies chest pain, SOB OBJECTIVE: Vital Signs-as noted below Physical Exam: General Appearance:Moderately built and nourished, no apparent distress Head: normocephalic, Atraumatic Eyes: normal inspection, EOMI, PERRL Neck: supple, Trachea midline Respiratory/Chest: Normal breath sounds, CTA Cardiovascular: S1, S2, No murmur Abdomen/GI:Soft, Non tender, Bowel sounds present Extremities/Musculoskelatal:normal inspection, no edema Neurologic/Psych:grossly no focal neurological deficits other than LLE weakness Skin: normal color, warm Lab data as noted below. ASSESSMENT & PLAN: Patient is a 71 yr male with history CAD s/p PM, A fib on Eliquis, DM, HTN, CKD 3, CHF diastolic type presenting with left leg weakness and falls. Left Leg radiculopathy and weakness S/P multilevel lumbar decompression with instrument infusion in August [address] Lumbar spine noted No acute lumbar spine fracture or dislocation. No evidence of hardware complication or malalignment. CT head: No acute intracranial abnormality continue Lidoderm patch, Gabapentin, Tramadol PRN PT/OT: recommends rehab Appreciate Orthopedics Input Hypertension continue Carvedilol, Lisinopril Possible Rectus Sheath Hematoma US of the abdomen: abdominal wall rectus sheath hematoma vs. abscess H/O hernia mesh repair Resumed Eliquis, Hb stable Appreciate Surgery Input No surgical intervention required at this time Needs repeat US in 2-3 months Denies nausea, vomiting, abd pain CAD, S/P PM stable A FIB on Eliquis continue Amiodarone DM II hold Metformin continue ISS CKD III stable CHF DIASTOLIC TYPE euvolemic continue diuretics DVT Px: on Eliquis Code status Full Code Dispo lives at home Plan to discharge to rehab facility Follow up with your Primary Care physician in 1 week upon discharge from [facility] Follow up with in 2-4 weeks as advised Get repeat Abdominal Ultrasound in 2-3 months for abdominal wall mass as advised and follow up with your surgeon if needed Seek immediate medical attention if your symptoms reoccur or worsen Vital Signs: Date Time Temp Pulse Resp B/P (MAP) Pulse Ox O2 Delivery O2 Flow Rate FiO2 02/22/17 07:50 Room Air 02/22/17 07:26 36.9 65 18 108/67 (81) 93 Room Air 02/22/17 00:20 Room Air 02/21/17 23:12 36.8 64 16 118/72 (87) 95 Room Air 02/21/17 15:40 Room Air 02/21/17 15:00 36.7 75 18 105/69 (81) 92 Room Air Lab Results: Results Past 24 Hours Test 02/21/17 16:52 02/21/17 20:44 02/22/17 08:15 02/22/17 08:34 Range/Units Bedside Glucose 150 154 168 70-99 mg/dl White Blood Count 7.91 4.8-10.8 K/uL Red Blood Count 4.55 4.7-6.1 M/uL Hemoglobin 12.7 14.0-18.0 g/dL Hematocrit 39.7 42-52 % Mean Corpuscular Volume 87.3 80-100 fL Mean Corpuscular Hemoglobin 27.9 25-34 pg Mean Corpuscular Hemoglobin Concent 32.0 32-36 g/dl Platelet Count 147 130-400 K/uL Mean Platelet Volume 10.1 7.4-10.4 fL Neutrophils (%) (Auto) 62.0 % Lymphocytes (%) (Auto) 23.3 % Monocytes (%) (Auto) 11.4 % Eosinophils (%) (Auto) 2.5 % Basophils (%) (Auto) 0.3 % Neutrophils # (Auto) 4.91 1.4-6.5 K/uL Lymphocytes # (Auto) 1.84 1.2-3.4 K/uL Monocytes # (Auto) 0.90 0.11-0.59 K/uL Eosinophils # (Auto) 0.20 0-0.5 K/uL Basophils # (Auto) 0.02 0-0.2 K/uL RDW Standard Deviation 51.7 36.4-46.3 fL RDW Coefficient of Variation 16.1 11.5-14.5 % Immature Granulocyte % (Auto) 0.5 % Immature Granulocyte # (Auto) 0.04 0.00-0.02 K/uL Sodium Level 135 136-145 mmol/L Potassium Level 3.8 3.5-5.1 mmol/L Chloride Level 98 98-107 mmol/L Carbon Dioxide Level 31 21-32 mmol/L Anion Gap 6.0 3-11 mmol/L Blood Urea Nitrogen 20 7-18 mg/dl Creatinine 1.10 0.60-1.40 mg/dl Est Creatinine Clear Calc Drug Dose 59.6 ml/min Estimated GFR () 77.9 Estimated GFR (Non- 67.2 BUN/Creatinine Ratio 18.1 10-20 Random Glucose 172 70-99 mg/dl Calcium Level 9.1 8.5-10.1 mg/dl
[2017-02-22] MEDS ORDERED: HYDR-5688 PO (13:15)
[2017-02-22] MEDS ORDERED: NRN300 PO (13:15)
[2017-02-22] MEDS ORDERED: TRAM-453 PO (13:15)
--- NOTE | 2017-02-22 13:19 | Discharge Summary ---
Discharge Summary Date of Service Feb 22, 2017. Discharge Summary Admission Date: Feb 19, 2017 at 18:28 Discharge Date: Feb 22, 2017 Discharge Disposition: Rehab Principal Diagnosis: Left leg weakness/Radiculopathy Procedures: L-spine CT: 1. No acute lumbar spine fracture or dislocation. 2. Prior posterior decompression with interbody yola and screw fixation at L2-S1. No evidence of hardware complication or malalignment. 3. Multilevel discogenic degenerative changes and facet arthropathy resulting in varying degrees of central canal and foraminal narrowing as above, most pronounced at L5-S1. CT head: No acute intracranial abnormality. C-spine CT: 1. No acute cervical spine fracture or subluxation. 2. Multilevel degenerative changes as above result in varying degrees of central canal and foraminal narrowing. 3. Posterior right thyroid nodule is seen, 2.4 cm which could be further evaluated with outpatient nonemergent ultrasound if clinically indicated. CT abd: 1. Dense ovoid circumscribed lesion or collection of the midline anterior abdominal wall centered within the region of the linea alba is seen, 4.1 x 5.2 x 5.0 cm and protrudes into the peritoneal margin of the abdomen. Differential considerations would include atypical rectus sheath hematoma or soft tissue neoplasm. Correlate with clinical exam and patient presentation. 2. No evidence of acute solid organ injury or fracture. 3. 1.5 cm cystic lesion of the anterior pancreatic body is nonspecific however suggests a sidebranch IPMN. ABD USD: 1. 5.1 cm mass in the abdominal wall. In the appropriate clinical setting, this most likely represents a hematoma or less likely abscess. However, follow-up ultrasound for resolution could be considered to ensure resolution given the primary alternate differential consideration being a desmoid tumor. Consultations: Orthopedics, Surgery Pending Studies/Follow-Up: Follow up with your Primary Care physician in 1 week upon discharge from [facility] Follow up with in 2-4 weeks as advised Get repeat Abdominal Ultrasound in 2-3 months for abdominal wall mass as advised and follow up with your surgeon if needed Seek immediate medical attention if your symptoms reoccur or worsen Medication Reconciliation New Medications: Gabapentin (Gabapentin) 300 Mg Cap 300 MG PO TID for 30 Days, #90 CAP Continued Medications: Acetaminophen (Tylenol) 500 Mg Tab 1000 MG PO Q8 PRN for Pain, TAB Amiodarone Hcl (Cordarone) 200 Mg Tab 200 MG PO QAM, TAB Apixaban (Eliquis) 5 Mg Tab 5 MG PO BID Aspirin (Aspirin Ec) 81 Mg Tab 81 MG PO QAM Carvedilol (Coreg) 25 Mg Tab 37.5 MG PO BIDM, TAB Cholecalciferol (Vitamin D) 1,000 Unit Tab 1000 UNIT PO QAM Fenofibrate (Tricor) 145 Mg Tab 145 MG PO DAILY, TAB Furosemide (Lasix) 40 Mg Tab 40 MG PO BID PRN for PRN, TAB Hydrocodone/Acetaminophen 5MG/325MG ([place] 5MG/325MG) Tab 1-2 TAB PO Q4H PRN for Pain for 3 Days, #6 TAB (This prescription has been renewed) PRN PAIN Lidocaine (Lidocaine) 1 Patch Tdsy 1 PATCH TD UD PRN for Pain MAY APPLY UPTO THREE PATCHES IN 24 HOURS, REMOVE AFTER 12 HOURS Lisinopril (Prinivil) 20 Mg Tab 20 MG PO BID, TAB Magnesium Oxide (Mag-Ox) 400 Mg Tab 400 MG PO DAILY, TAB Metformin Hcl (Glucophage) 1,000 Mg Tab 1000 MG PO BIDM, TAB Nitroglycerin (Nitrostat) 0.4 Mg Sub 0.4 MG UT UD PRN for Chest Pain, BTL Place 0.4 mg under tongue every 5 minutes as needed for chest pain. Up to 3 doses in 15 minutes. Oxycodone HCl (Oxycodone HCl) 5 Mg Tab 5-10 MG PO Q4H PRN for Moderate - severe pain for 30 Days, #60 TAB Potassium Chloride (Micro-K Ext Rel) 10 Meq Cap 20 MEQ PO DAILY, CAP Rosuvastatin Calcium (Crestor) 20 Mg Tab 20 MG PO HS, TAB Spironolactone (Aldactone) 25 Mg Tab 12.5 MG PO DAILY, TAB Terazosin (Hytrin) 5 Mg Cap 5 MG PO HS, CAP Tramadol Hcl (Ultram) 50 Mg Tab 50 MG PO Q6H PRN for Pain for 3 Days, #6 TAB (This prescription has been renewed ) PRN PAIN Admission Information HPI (per Admitting provider): Patient is a 71 year old male with history CAD s/p PM, A fib on Eliquis, DM, HTN, CKD 3, CHF Diastolic type presenting with left leg weakness and falls. Patient underwent Lumbar Spine Surgery in August 2016 c/o Dr. Centeno. He was doing fine until about 2 weeks ago when he started to have back pain, sacral region, radiating to the left leg, associated with leg weakness, paresthesias. Denies any incontinence. Tried Tylenol for pain with no relief. Patient reports increased pain and leg weakness recently. Today, patient was severe, thus patient called EMS. He had a mechanical fall while being transferred and landed on his buttocks,hitting his back and his head. Denies headache, upper back pain. On exam, patient seen resting in bed, not in distress. State left leg pain is moderate. Denies incontinence. Denies headache, chest pain, dyspnea, dizziness, palpitations. Denies abdominal pain, bleeding. No other symptoms Physical Exam (per Admitting): General Appearance: WD/WN, no apparent distress Head: normocephalic, atraumatic Eyes: normal inspection, EOMI, sclerae normal ENT: normal ENT inspection, hearing grossly normal, pharynx normal Neck: supple, no adenopathy, thyroid normal, no JVD, trachea midline Respiratory/Chest: chest non-tender, lungs clear, normal breath sounds, no respiratory distress, no accessory muscle use Cardiovascular: regular rate, rhythm, no edema, no JVD, no murmur Abdomen/GI: normal bowel sounds, non tender, soft Back: normal inspection, no CVA tenderness Extremities/Musculoskelatal: + pertinent finding (left leg: healing abrasion on the lower leg; mild lower leg edema) 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 Left Leg radiculopathy and weakness S/P multilevel lumbar decompression with instrument infusion in [place] [address] Lumbar spine noted No acute lumbar spine fracture or dislocation. No evidence of hardware complication or malalignment. CT head: No acute intracranial abnormality continue Lidoderm patch, Gabapentin, Tramadol PRN PT/OT: recommends rehab Appreciate Orthopedics Input Hypertension continue Carvedilol, Lisinopril Possible Rectus Sheath Hematoma US of the abdomen: abdominal wall rectus sheath hematoma vs. abscess H/O hernia mesh repair Resumed Eliquis, Hb stable Appreciate Surgery Input No surgical intervention required at this time Needs repeat US in 2-3 months Denies nausea, vomiting, abd pain CAD, S/P PM stable A FIB on Eliquis continue Amiodarone DM II hold Metformin continue ISS CKD III stable CHF DIASTOLIC TYPE euvolemic continue diuretics DVT Px: on Eliquis Code status Full Code Dispo lives at home Plan to discharge to rehab facility Follow up with your Primary Care physician in 1 week upon discharge from [facility] Follow up with in 2-4 weeks as advised Get repeat Abdominal Ultrasound in 2-3 months for abdominal wall mass as advised and follow up with your surgeon if needed Seek immediate medical attention if your symptoms reoccur or worsen Total time spent on discharge = 32 minutes This includes examination of the patient, discharge planning, medication reconciliation, and communication with other providers. Discharge Instructions Discharge Instructions Date of Service Feb 22, 2017. Admission Reason for Admission: Left Leg Weakness Discharge Discharge Diagnosis / Problem: Left leg weakness/Radiculopathy Discharge Goals Goal(s): Decrease discomfort, Improve function Activity Recommendations Activity Limitations: resume your previous activity Exercise/Sports Limitations: as tolerated Driving or Machine Use: Do not drive until cleared by your Primary care physician . Instructions / Follow-Up Instructions / Follow-Up Follow up with your Primary Care physician in 1 week upon discharge from [facility] Follow up with in 2-4 weeks as advised Get repeat Abdominal Ultrasound in 2-3 months for abdominal wall mass as advised and follow up with your surgeon if needed Seek immediate medical attention if your symptoms reoccur or worsen Current Hospital Diet Patient's current hospital diet: AHA Diet (Heart Healthy), Diabetes Type 2 Diet Discharge Diet Recommended Diet: AHA Diet (Heart Healthy), Diabetes Type 2 Diet Pending Studies Studies pending at discharge: no Medical Emergencies . Who to Call and When: Medical Emergencies: If at any time you feel your situation is an emergency, please call 911 immediately. . Non-Emergent Contact Non-Emergency issues call your: Primary Care Provider, Surgeon () Call Non-Emergent contact if: you have a fever, your pain is not controlled, your pain is worsening, your pain is unusual for you, you have any medication questions Seek immediate medical attention if your symptoms reoccur or worsen . . "Provider Documentation" section prepared by Sam Thomas. . VTE Core Measure Inpt VTE Proph given/why not?: Other Anticoagulation (Eliquis)
[2017-02-22] MEDS: TRAMADOL HCL 50 MG TAB PO PRN (15:30)
[2017-02-22 15:41] VITALS: BP 95/60; PULSE 66; TEMP 36.8; O2SAT 95
[2017-02-22 16:42] VITALS: BP 126/79; PULSE 75
[2017-02-22 17:10] VITALS: BP 126/79; PULSE 75; TEMP 36.8; O2SAT 95
== END 2017-02-22 19:43 ==
LOC: EDBD 13:29 → C.EDB 13:33 → C.MED 18:28 → ENRESERV 19:05 → EDBEDREQSVC 02-20 12:09 → ENRESERV 02-20 14:10 → C.MSN 02-20 15:59
PROVIDERS: ADMIT Internal Medicine; ATTEND Internal Medicine
DX: M54.16 Radiculopathy, lumbar region (principal); W19.XXXA Unspecified fall, initial encounter; I25.10 Atherosclerotic heart disease of native coronary artery without angina pectoris; N18.3 Chronic kidney disease, stage 3 (moderate); E78.5 Hyperlipidemia, unspecified; I13.0 Hypertensive heart and chronic kidney disease with heart failure and stage 1 through stage 4 chronic kidney disease, or unspecified chronic kidney disease; E66.9 Obesity, unspecified; I48.0 Paroxysmal atrial fibrillation; I50.32 Chronic diastolic (congestive) heart failure; E11.9 Type 2 diabetes mellitus without complications; N40.0 Benign prostatic hyperplasia without lower urinary tract symptoms; Z79.82 Long term (current) use of aspirin; Z79.899 Other long term (current) drug therapy; Z95.0 Presence of cardiac pacemaker; Z87.891 Personal history of nicotine dependence

== ENCOUNTER → 2017-04-18 | Day surgery (SDC) | payer OTHER ==
[2017-04-18] VITALS (11 sets, daily range): BP systolic 141–179; BP diastolic 74–92; PULSE 60–87; TEMP 36.6–37; O2SAT 94–99; Ht 160 cm; Wt 96.1 kg
[~2017-04-18] VITALS: Ht 160 cm; Wt 96.1 kg
[~2017-04-18] MED LIST changes: +ACETAMINOPHEN 500 MG TAB PO ONE; +ACETAMINOPHEN 500 MG TAB PO PRN; +GABA1CAP5 PO; +TRAM-10 PO
[2017-04-18 09:26] LABS: PLATELET COUNT 131 K/uL (130-400)
[2017-04-18 09:35] LABS: INR 1.1 (0.9-1.1); PARTIAL THROMBOPLASTIN RATIO 0.9; PROTHROMBIN TIME (PATIENT) 11.9 SECONDS (9.0-12.0)
--- NOTE | 2017-04-18 10:48 | Discharge Instructions ---
Discharge Instructions Procedure Procedure Date: Apr 18, 2017. Reason for visit: Lumbar Radiculopathy. Discharge Discharge Date: Apr 18, 2017. Discharge Diagnosis: Same Instructions Activity Recommendations: No limitations Return to School/Work: no limitations Recommended Home Diet: Resume Previous Diet Provider Instructions: ACTIVITY RECOMMENDATIONS: * Rest today. * Resume regular activity in one day. MEDICATIONS: * May take Tylenol or Ibuprofen as needed for pain. DIET: * Resume previous diet. SPECIAL CARE INSTRUCTIONS: Call your doctor if: * Temperature above 101 degrees F. * Pain not relieved by pain medicine ordered. * Increased drainage or redness from incision. * Notify your doctor with any questions or concerns. Call your doctor or go to the nearest Emergency Department if you experience: * Increased chest pain or shortness of breath. FOLLOW UP VISIT: Follow-up with Referring Physician as scheduled. Allergies Coded Allergies: No Known Allergies (Unverified , 04/18/17) Darren Nagy Recommendations: Call your doctor if: * Temperature above 101 degrees * Pain not relieved by pain medicine ordered * There is increased drainage or redness from any incision * You have any unanswered questions or concerns. Your Doctors Instructions noted above were prepared by provider Aram Luevano. Patient Signature Section: Patient Instructions Signature Page Rayray Celaya Patient (or Guardian) Signature/Date: I have read and understand the instructions given to me by my caregivers. Caregiver/RN/Doctor Signature/Date: The above-named patient and/or guardian has received patient instructions on this date. + Original Patient Signature Page (only) stays with chart. Please make copy for patient.
--- NOTE | 2017-04-18 10:52 | DIAGNOSTIC IMAGING REPORT ---
MYELOGRAM,SUPER/INTER LUMBAR HISTORY: 71 years-old Male left leg and back pain MYELOGRAM,SUPER/INTER LUMBAR CLINICAL HISTORY: 71 years-old Male with left leg and back pain. Acute left leg pain PROCEDURE: The risks, benefits, and alternatives to the procedure is discussed with the patient who voiced understanding. Written informed consent was obtained. The patient was placed prone on the fluoroscopy table. The lower back was prepped and draped in the usual sterile fashion. 1% lidocaine was used for local anesthesia. A 20-gauge spinal needle was inserted into the L2-L3 interlaminar space, and upon return of clear colorless cerebrospinal fluid approximately 12 mL of Optiray 300 iodinated contrast was injected into the thecal space. The patient tolerated the procedure well. There were no immediate complications. The patient was then transported to CT scanner and then to the medical treatment unit for further observation. FLUOROSCOPY TIME: 0.4 minutes IMPRESSION: Successful fluoroscopically guided lumbar puncture and myelogram. There were no immediate complications. The above report was generated using voice recognition software. It may contain grammatical, syntax or spelling errors. Electronically signed by: Daniel Luevano M.D. 04/18/2017 10:51 AM Dictated Date/Time: 04/18/2017 10:49 AM
--- NOTE | 2017-04-18 11:14 | DIAGNOSTIC IMAGING REPORT ---
LUMBAR SPINE WITH CT DOSE: 1425.37 mGy.cm CLINICAL HISTORY: 71 years-old Male with POST LUMBAR MYELOGRAM. Acute left leg and back pain with history of prior lumbar fusion TECHNIQUE: Multiple axial CT images of the lumbar spine were obtained with the use of intrathecal contrast. Coronal and sagittal reformats were generated from the axial data set and submitted for review. A dose lowering technique was utilized adhering to the principles of ALARA. COMPARISON: CT lumbar spine 02/19/2017. FINDINGS: 5 lumbar type vertebral segments are present. Postoperative changes compatible with prior posterior decompression and interbody yola and screw fusion noted at L2-S1. There is no evidence of hardware complication or malalignment. Multilevel discogenic degenerative changes, endplate spurring and facet arthropathy are noted as below. Large posterior disc aspect complex at L5-S1. No bony fracture or subluxation. Moderate to extensive atherosclerosis of the abdominal aorta. No acute intra-abdominal, intrapelvic or paraspinal abnormality identified. T12-L1: Mild posterior intervertebral disc space narrowing, spondylitic spurring and facet arthropathy. No significant central canal or foraminal narrowing. L1-L2: Moderate anterior endplate spurring with mild intervertebral disc space narrowing and moderate facet arthropathy. Broad-based posterior disc bulge flattens the ventral thecal sac without significant central canal narrowing. Posterior disc osteophyte complex of the right foraminal/far lateral distribution causes moderate right foraminal stenosis and may abut the far lateral right L1 nerve root. L2-L3: Moderate discogenic degenerative changes with endplate spurring and moderate facet arthrosis. Broad-based posterior disc bulge flattens the ventral thecal sac. Mild bilateral inferior foraminal narrowing. No significant central canal stenosis. L3-L4: Mild to moderate discogenic degenerative changes with broad-based posterior disc osteophyte complex formation and moderate facet arthrosis. There is flattening of the ventral thecal sac without significant central canal narrowing. There is mild inferior left foraminal stenosis. The right foramen is patent. Moderate facet arthrosis. L4-L5: At least moderate discogenic degenerative changes with circumferential disc osteophyte complex formation. There is mild flattening of the ventral thecal sac without significant central canal narrowing. There is moderate right and mild left foraminal stenosis. Moderate facet arthrosis. L5-S1: Advanced intervertebral disc space narrowing with large central/left paracentral posterior disc osteophyte complex measuring up to 8 mm in AP dimension narrowing the AP dimension of the thecal sac to 4 mm. There is also moderate facet arthrosis. These findings cause severe central canal, severe left and moderate right foraminal narrowing. IMPRESSION: 1. Advanced intervertebral disc space narrowing with large central/left paracentral posterior disc osteophyte complex at L5-S1 causes severe central canal, severe left and moderate right foraminal narrowing. This may account for the patient's reported left-sided symptomatology. 2. Additional multilevel discogenic degenerative changes and facet arthropathy as above with varying degrees of foraminal narrowing. No significant central canal stenosis is seen at any of the other levels. 3. Postsurgical changes of prior posterior decompression with interbody yola and screw fusion at L2-S1. No evidence of hardware complication or malalignment. No acute bony fracture. The above report was generated using voice recognition software. It may contain grammatical, syntax or spelling errors. Electronically signed by: Daniel Luevano M.D. 04/18/2017 11:12 AM Dictated Date/Time: 04/18/2017 11:01 AM
== END | disposition home or self-care (01) ==
LOC: C.ACU 08:25
PROVIDERS: ATTEND Orthopaedic Surgery Orthopaedic Surgery of the Spine
DX: M54.16 Radiculopathy, lumbar region (principal)

== ENCOUNTER 2022-08-14 13:41 | Observation (INO) ==
[2022-08-14 14:06] LABS: Basophils # (auto) 0.03 K/uL (0-0.2); Basophils % (auto) 0.3 %; Eosinophils # (auto) 0.02 K/uL (0-0.50); Eosinophils % (auto) 0.2 %; Hematocrit (blood only) 51.6 % (42.0-52.0); Immature Granulocytes # (auto) 0.08 K/uL (0.01-0.20); Immature Granulocytes % (auto) 0.8 %; Lymphocytes # (auto) 1.11 K/uL (1.2-3.4); Lymphocytes % (auto) 10.8 %; Mean Corpuscular Hemoglobin 32.8 pg (25.0-34.0); Mean Corpuscular Hgb Conc 34.9 g/dL (32.0-36.0); Monocytes # (auto) 0.75 K/uL (0.11-0.59); Monocytes % (auto) 7.3 %; Neutrophils # (auto) 8.28 K/uL (1.40-6.50); Neutrophils % (auto) 80.6 %; Platelet Count 195 K/uL (130-400); RDW Coefficient of Variation 14.3 % (11.5-14.5); RDW Standard Deviation 49.7 fL (36.4-46.3); Red Blood Count 5.49 M/uL (4.70-6.10); White Blood Count 10.27 K/ul (4.8-10.8)
--- NOTE | 2022-08-14 14:07 | Emergency Department Note ---
Impression & Plan Hypoxia, COVID-19, Cough, Diarrhea ED Provider Note NAME: BRITTNEE FOSTER JR AGE: 77 SEX: M : 1945 ARRIVES VIA: Ambulance INFORMANT: Patient ED PROVIDER(S): Johnathan Aguirre DO CHIEF COMPLAINT: weakness, SOB and Diarrhea HPI: Patient is a 77-year-old male who presents to the ER following diarrhea which started this past Monday and Monday. Diarrhea has improved. He has been feeling very weak and rundown since then but no headache or change in vision. He has been having shortness of breath for the past 2 days. Does have a cough over the same time. EMS was called and Pt was brought in. He was found to be hypoxic at 88%. He was placed on 2 L nasal cannula. He notes he does feel better with this. No runny nose or sore throat. No dysuria, urgency, or frequency. No other exacerbating or remitting factors. PAST MEDICAL HISTORY:See Below PAST SURGICAL HISTORY:See Below FAMILY HISTORY:See Below SOCIAL HISTORY:See Below HOME MEDICATIONS:See Below ALLERGIES:See Below VITALS:See Below PHYSICAL EXAMINATION: GENERAL: Sitting up in bed, alert, chronically ill-appearing, disheveled, on nasal cannula EYE EXAM: normal conjunctiva. PERRL and EOM's grossly intact. OROPHARYNX: mucous membranes are moist NECK: supple, no nuchal rigidity, no adenopathy, non-tender LUNGS: Diminished bilaterally. Normal chest wall mechanics HEART: no murmurs, S1 normal and S2 normal ABDOMEN: abdomen soft, non-tender, normo-active bowel sounds, no masses, no rebound or guarding. UPPER EXTREMITIES: upper extremities are grossly normal. LOWER EXTREMITIES: Pitting edema bilaterally. NEURO EXAM: Normal sensorium, cranial nerves II-XII grossly intact, normal speech, no gross weakness of arms, no gross weakness of legs. MEDICAL DECISION MAKING: Patient is a 77-year-old male who presents to the ER for cough congestion and shortness of breath. IV was established blood work was obtained. He is found to be hypoxic and placed on 2 L nasal cannula with pulse ox in the 80s. Labs show no significant leukocytosis or anemia. BMP with a creatinine of 1.4 no old to compare to. Glucose was elevated at 380. He was given IV insulin x5 units. Troponin was elevated at 150. proBNP at 1000. Pro-Ismael was normal. Lipase was normal. UA was contaminated. Patient is COVID-positive. Chest x-ray with some cephalization. He was given Decadron updated bedside and remained on 2 L nasal cannula and [facility] ' Triage Nursing notes reviewed. Limited review of prior medical records performed Vital Signs: reviewed and remarkable for hypoxic Differential diagnosis: Differential diagnoses includes but is not limited to pneumonia, bronchitis, COPD/Asthma exacerbation, pneumothorax, pulmonary embolism, congestive heart failure, acute coronary syndrome ER treatment provided: See below Diagnostics interpreted by me include EKG and cardiac monitoring as listed below: -Cardiac Monitoring: An order was placed for continuous cardiac monitoring. The monitor shows a rate of 88 with intermittently paced rhythm. -ECG: Intermittently paced rate 87 Left axis QTc 531 ST depressions in the lateral leads Intermittent paced rhythm has changed since last EKG -Laboratory studies:Interpreted by me as stated above in MDM and shown below. Imaging studies: Xrays: As interpreted by me: Portable AP upright 1 view chest shows cephalization per my read CTs show: none Consultation(s): As described in MDM Procedures:none Critical Care: I have personally spent 32 minutes of critical care time in the direct management of this patient. This includes bedside care, interpretation of diagnostic studies, and testing, discussion with consultants, patient, and family members, and other required patient management activities. This 32 minutes is in excess of all separately billable procedures. Past Med/Surg History Medical History (Updated 08/14/22 @ 17:59 by Johnathan Aguirre DO) COVID-19 Hypoxia Social History Smoking Status: Former smoker Smoking End Date: 40 years ago; Hx Alcohol Use: Yes Alcohol type: beer Hx Substance Use: No Preferred Language: Tanzanian Communication Ability: Effective Strategic Advisor Required: No Beliefs That Will Affect Care: None Current Living Situation: Family Current Living Situation Comment: Pt's daughter lives with him Feels Safe at Home: Yes Safety Concerns: Feels Safe At This Time Assistive Devices: Cane, Denture - Upper and Glasses Allergies Allergies Allergy/AdvReac Type Severity Reaction Status Date / Time No Known Allergies Allergy Unverified 08/14/22 14:41 Home Meds Home Medications Medication Instructions Recorded Confirmed aspirin 81 mg tablet,delayed 81 mg PO DAILY ##0 03/23/15 08/14/22 release carvedilol 25 mg tablet 37.5 mg PO BID #0 tabs 03/23/15 08/14/22 metformin 500 mg tablet,extended 2,000 mg PO QAM #0 tabs 03/23/15 08/14/22 release 24 hr nitroglycerin 0.4 mg sublingual 0.4 mg sublingual Q5M PRN Chest 03/23/15 08/14/22 tablet (Nitrostat) Pain #0 BTLS potassium chloride 10 mEq 10 meq PO QAM #0 caps 03/23/15 08/14/22 tablet,extended release rosuvastatin 10 mg tablet 10 mg PO QAM #0 tabs 03/23/15 08/14/22 furosemide 40 mg tablet 50 mg PO QAM #0 tabs 10/06/15 08/14/22 terazosin 5 mg capsule 5 mg PO HS #0 caps 10/06/15 08/14/22 apixaban 5 mg tablet 5 mg PO BID ##0 12/10/15 08/14/22 lisinopril 20 mg tablet 20 mg PO BID #0 tabs 12/10/15 08/14/22 spironolactone 25 mg tablet 25 mg PO QAM #0 tabs 12/10/15 08/14/22 acetaminophen 500 mg tablet 500 mg PO Q8H PRN Pain #0 tabs 09/13/16 08/14/22 lidocaine 5 % topical patch 1 patch topical DAILY PRN Pain ##0 09/13/16 08/14/22 cyanocobalamin (vitamin B-12) 500 500 mcg PO QAM 08/14/22 08/14/22 mcg tablet empagliflozin 25 mg tablet 25 mg PO QAM 08/14/22 08/14/22 (Jardiance) hydralazine 25 mg tablet 12.5 mg PO BID 08/14/22 08/14/22 Results & Data (ED) Vital Signs Vital Signs - 24 hr 08/14/22 13:47 08/14/22 13:57 08/14/22 14:30 Temperature 36.7 C Temperature Source Oral Pulse Rate 90 Pulse Rate [Apical] 90 Pulse Rate from SpO2 Sensor Pulse Rhythm Irregular Respiratory Rate 23 14 Respiratory Effort / Characteristics Non-Labored Spontaneous Respiratory Depth Normal Respiratory Pattern Regular Blood Pressure 101/71 Blood Pressure [Right Arm] 124/68 Blood Pressure Mean 81 Blood Pressure Mean [Right Arm] 86 Pulse Oximetry 92 96 Oxygen Delivery Method Room Air Nasal Cannula Nasal Cannula Oxygen Flow Rate 2 2 Sepsis New/Unexplained Change in Mental Status No Sepsis Action Taken by Nursing No Action Required 08/14/22 15:00 08/14/22 15:00 Temperature Temperature Source Pulse Rate 91 H Pulse Rate [Apical] Pulse Rate from SpO2 Sensor 87 Pulse Rhythm Respiratory Rate 22 Respiratory Effort / Characteristics Respiratory Depth Respiratory Pattern Blood Pressure 113/67 Blood Pressure [Right Arm] Blood Pressure Mean 82 Blood Pressure Mean [Right Arm] Pulse Oximetry 92 Oxygen Delivery Method Nasal Cannula Oxygen Flow Rate 3 Sepsis New/Unexplained Change in Mental Status Sepsis Action Taken by Nursing Laboratory Data 08/14/22 13:54 08/14/22 13:54 Lab Results 08/14/22 08/14/22 08/14/22 Range/Units 13:54 13:54 13:54 WBC 10.27 (4.8-10.8) K/ul RBC 5.49 (4.70-6.10) M/uL Hgb 18.0 (14.0-18.0) g/dl Hct 51.6 (42.0-52.0) % MCV 94.0 (80.0-100.0) fL MCH 32.8 (25.0-34.0) pg MCHC 34.9 (32.0-36.0) g/dL RDW Std Deviation 49.7 H (36.4-46.3) fL RDW Coeff of Mavis 14.3 (11.5-14.5) % Plt Count 195 (130-400) K/uL MPV 10.0 (9.4-12.4) fL Immature Gran % (Auto) 0.8 % Neut % (Auto) 80.6 % Lymph % (Auto) 10.8 % [place] % (Auto) 7.3 % Eos % (Auto) 0.2 % Baso % (Auto) 0.3 % Neut # (Auto) 8.28 H (1.40-6.50) K/uL Lymph # (Auto) 1.11 L (1.2-3.4) K/uL [place] # (Auto) 0.75 H (0.11-0.59) K/uL Eos # (Auto) 0.02 (0-0.50) K/uL Baso # (Auto) 0.03 (0-0.2) K/uL Immature Gran # (Auto) 0.08 (0.01-0.20) K/uL Sodium 132 L (136-145) mmol/L Potassium 5.1 (3.5-5.1) mmol/L Chloride 94 L (98-107) mmol/L Carbon Dioxide 26 (21-32) mmol/L Anion Gap 12 H (3-11) BUN 27 H (6-23) mg/dl Creatinine 1.49 H (0.6-1.4) mg/dl Est Cr Clr Drug Dosing 41.3 ml/min Est GFR ( Amer) 51.7 ml/min Est GFR (Non-Af Amer) 44.6 ml/min BUN/Creatinine Ratio 18.1 (10-20) Glucose 380 H* (70-99(Fasting)) mg/dl POC Glucose (70-99) mg/dl Calcium 9.7 (8.5-10.1) mg/dl Magnesium 2.2 (1.7-2.4) mg/dl Total Bilirubin 1.8 H (0.2-1.0) mg/dl AST 10 L (13-39) U/L ALT 7 (7-52) U/L Alkaline Phosphatase 55 (34-104) U/L Troponin I High Sens 148.3 H* (0-20) pg/ml B-Natriuretic Peptide 948 H (0-100) pg/ml Total Protein 7.1 (6.0-8.3) gm/dl Albumin 3.9 (3.4-5.0) gm/dl Globulin 3.2 (2.5-4.0) gm/dl Albumin/Globulin Ratio 1.2 (0.9-2) Lipase 21 (11-82) U/L Urine Color Urine Appearance (Clear) Urine pH (4.5-7.5) Ur Specific [place] (1.000-1.030) Urine Protein (Negative) Urine Glucose (UA) (Negative) Urine Ketones (Negative) Urine Blood (Negative) Urine Nitrite (Negative) Urine Bilirubin (Negative) Urine Urobilinogen (Negative) Ur Leukocyte Esterase (Negative) Urine WBC (Auto) (0-5) /hpf Urine RBC (Auto) (0-4) /hpf U Hyaline Cast (Auto) (0-5) /lpf U Epithel Cells (Auto) (0-5) /lpf Urine Bacteria (Auto) (Negative) SARS-CoV-2 (PCR) (Negative) Influenza Type A (PCR) (Neg) Influenza Type B (PCR) (Neg) RSV (RT-PCR) (Neg) 08/14/22 08/14/22 08/14/22 Range/Units 13:55 14:00 14:50 WBC (4.8-10.8) K/ul RBC (4.70-6.10) M/uL Hgb (14.0-18.0) g/dl Hct (42.0-52.0) % MCV (80.0-100.0) fL MCH (25.0-34.0) pg MCHC (32.0-36.0) g/dL RDW Std Deviation (36.4-46.3) fL RDW Coeff of Mavis (11.5-14.5) % Plt Count (130-400) K/uL MPV (9.4-12.4) fL Immature Gran % (Auto) % Neut % (Auto) % Lymph % (Auto) % [place] % (Auto) % Eos % (Auto) % Baso % (Auto) % Neut # (Auto) (1.40-6.50) K/uL Lymph # (Auto) (1.2-3.4) K/uL [place] # (Auto) (0.11-0.59) K/uL Eos # (Auto) (0-0.50) K/uL Baso # (Auto) (0-0.2) K/uL Immature Gran # (Auto) (0.01-0.20) K/uL Sodium (136-145) mmol/L Potassium (3.5-5.1) mmol/L Chloride (98-107) mmol/L Carbon Dioxide (21-32) mmol/L Anion Gap (3-11) BUN (6-23) mg/dl Creatinine (0.6-1.4) mg/dl Est Cr Clr Drug Dosing ml/min Est GFR ( Amer) ml/min Est GFR (Non-Af Amer) ml/min BUN/Creatinine Ratio (10-20) Glucose (70-99(Fasting)) mg/dl POC Glucose 361 H* (70-99) mg/dl Calcium (8.5-10.1) mg/dl Magnesium (1.7-2.4) mg/dl Total Bilirubin (0.2-1.0) mg/dl AST (13-39) U/L ALT (7-52) U/L Alkaline Phosphatase (34-104) U/L Troponin I High Sens (0-20) pg/ml B-Natriuretic Peptide (0-100) pg/ml Total Protein (6.0-8.3) gm/dl Albumin (3.4-5.0) gm/dl Globulin (2.5-4.0) gm/dl Albumin/Globulin Ratio (0.9-2) Lipase (11-82) U/L Urine Color Yellow Urine Appearance Clear (Clear) Urine pH 5.0 (4.5-7.5) Ur Specific [place] 1.027 (1.000-1.030) Urine Protein Negative (Negative) Urine Glucose (UA) 3+ H (Negative) Urine Ketones Negative (Negative) Urine Blood Negative (Negative) Urine Nitrite Negative (Negative) Urine Bilirubin Negative (Negative) Urine Urobilinogen Negative (Negative) Ur Leukocyte Esterase Trace H (Negative) Urine WBC (Auto) 1-5 (0-5) /hpf Urine RBC (Auto) 0-4 (0-4) /hpf U Hyaline Cast (Auto) 1-5 (0-5) /lpf U Epithel Cells (Auto) 10-20 H (0-5) /lpf Urine Bacteria (Auto) Negative (Negative) SARS-CoV-2 (PCR) POSITIVE A* (Negative) Influenza Type A (PCR) Negative (Neg) Influenza Type B (PCR) Negative (Neg) RSV (RT-PCR) Negative (Neg) Administered Medications Discontinued Medications Aspirin (Aspirin Chew 324 Mg) 324 mg PO NOW STA Stop: 08/14/22 14:41 Last Admin: 08/14/22 14:45 Dose: 324 mg Documented By: HU Dexamethasone 6 mg/ Syringe 1.5 mls @ 1 mls/min IV ONE ONE Stop: 08/14/22 15:17 Last Admin: 08/14/22 15:48 Dose: 1 mls/min Documented By: JENA Insulin Human Regular (Novolin-R Insulin Per Unit Charge) 5 units IV NOW STA Stop: 08/14/22 14:52 Last Admin: 08/14/22 15:06 Dose: 5 units Documented By: HU Co-signed By: AM Imaging Data Radiologist's Impression: Chest X-Ray 08/14/22 13:55 SINGLE VIEW CHEST CLINICAL HISTORY: Atypical chest pain FINDINGS: An AP, portable, upright chest radiograph is compared to study dated 09/17/2016. A 2-lead cardiac pacemaker is unchanged in position and partially obscures the left upper chest. The heart is enlarged noting atherosclerotic calcification of the thoracic. There is pulmonary vascular congestion. Trace pleural effusions are suspected. Atelectasis is noted at the lung bases. No pneumothorax is seen. The skeletal structures are osteopenic. The bony thorax is grossly intact. Degenerative change is noted in the shoulders and thoracic spine. IMPRESSION: 1. Cardiomegaly and cardiac pacemaker with evidence of congestive failure. 2. Suspect trace pleural effusions. ACT 112: Negative or not required by law. Electronically signed by: Jb Mckinney M.D. 08/14/2022 2:20 PM Discharge Plan Visit Data Chief Complaint: Illness Stated Complaint: ILLNESS, HYPERGLYCEMIA, EDEMA TO FEET ED Provider: Johnathan Aguirre Discharge Problem: Hypoxia, COVID-19, Cough, Diarrhea Discharge Instructions Interventions: ED Discharge Assessment Last Done: 08/14/22 16:22
--- NOTE | 2022-08-14 14:21 | XRay Report ---
SINGLE VIEW CHEST CLINICAL HISTORY: Atypical chest pain FINDINGS: An AP, portable, upright chest radiograph is compared to study dated 09/17/2016. A 2-lead ca rdiac pacemaker is unchanged in position and partially obscures the left upper chest. The heart is en larged noting atherosclerotic calcification of the thoracic. There is pulmonary vascular congestion. Trace pleural effusions are suspected. Atelectasis is noted at the lung bases. No pneumothorax is see n. The skeletal structures are osteopenic. The bony thorax is grossly intact. Degenerative change is noted in the shoulders and thoracic spine. IMPRESSION: 1. Cardiomegaly and cardiac pacemaker with evidence of congestive failure. 2. Suspect trace pleural effusions. ACT 112: Negative or not required by law. Electronically signed by: Jb Mckinney M.D. 08/14/2022 2:20 PM
[2022-08-14 14:27] LABS: Albumin Globulin Ratio 1.2 (0.9-2); Albumin Level 3.9 gm/dl (3.4-5.0); BUN Creatinine Ratio 18.1 (10-20); Bilirubin,Total 1.8 mg/dl (0.2-1.0); Calcium 9.7 mg/dl (8.5-10.1); Creatinine Clr Calc Pharmacy 41.3 ml/min; Est GFR (African American) 51.7 ml/min; Est GFR (Non-African American) 44.6 ml/min; Globulin 3.2 gm/dl (2.5-4.0); Potassium 5.1 mmol/L (3.5-5.1); Total Protein 7.1 gm/dl (6.0-8.3)
[2022-08-14 14:35] LABS: Troponin I High Sensitivity 148.3 pg/ml (0-20)
[2022-08-14] MEDS ORDERED: ASPIRIN CHEW 324 MG PO STA (14:40)
[2022-08-14 14:43] LABS: Influenza A virus by PCR Negative (Neg); Influenza B virus by PCR Negative (Neg); RSV by PCR Negative (Neg)
[2022-08-14 14:45] LABS: SARS CoV2 RNA(COVID-19) Ceph POSITIVE (Negative)
[2022-08-14] MEDS ORDERED: NovoLIN-R INSULIN PER UNIT CHARGE IV STA (14:51)
[2022-08-14] MEDS ORDERED: ALUMINUM/MAGNESIUM SUSP 30 ML UDC PO PRN (15:14)
[2022-08-14] MEDS ORDERED: POLYETHYLENE (MIRALAX) 17 GM PACK PO PRN (15:14)
[2022-08-14] MEDS ORDERED: ZOLPIDEM TARTRATE 5 MG TAB PO PRN (15:14)
[2022-08-14] MEDS ORDERED: CARBOHYDRATES FOR HYPOGLYCEMIA PO PRN ×2 (15:14→17:16)
[2022-08-14] MEDS ORDERED: GLUCOSE 10 TAB/TUBE PO PRN ×2 (15:14→17:16)
[2022-08-14] MEDS ORDERED: ONDANSETRON INJ 2 MG/ML 2 ML VIAL IV PRN (15:14)
[2022-08-14] MEDS ORDERED: GLUCAGON FOR INJ 1 MG VIAL SQ PRN ×2 (15:14→17:16)
[2022-08-14] MEDS ORDERED: MAGNESIUM HYDROXIDE SUSP 30 ML UDC PO PRN (15:14)
[2022-08-14] MEDS ORDERED: DEXTROSE 50% 50 ML SYRINGE IV PRN ×2 (15:14→17:16)
[2022-08-14] MEDS ORDERED: GLUCOSE 40% GEL 15 GM TUBE PO PRN ×2 (15:14→17:16)
[2022-08-14] MEDS ORDERED: ACETAMINOPHEN 325 MG TAB PO PRN (15:14)
[2022-08-14] MEDS ORDERED: dexAMETHasone 6 MG in SYRINGE 0 ML IV ONE (15:16)
--- NOTE | 2022-08-14 15:19 | History & Physical Report ---
Date of Service August 14, 2022 Assessment & Plan (1) COVID-19: (2) Hypoxia: (3) Paroxysmal a-fib: (4) Hypertension: (5) Dyslipidemia: (6) Tachy-aquiles syndrome: (7) CAD (coronary artery disease): (8) DM type 2 (diabetes mellitus, type 2): (9) CKD (chronic kidney disease), stage III: (10) Sleep apnea: Plan COVID-19: Hypoxia: SPO2 88% in ED; 96% on 3 LNC Incidental COVID positive in ED; vaccinated x2 against COVID; recently positive for COVID 04/2022 Decadron 6 mg in ED; continue x9 days Stress dose level 3 for blood sugars Consider remdesivir if no improvement with hypoxia Lactate 3.3; will trend Does not meet sepsis criteria without leukocytosis, tachycardia or tachypnea Procalcitonin pending Blood cultures pending Screen pending PT/OT Paroxysmal Atrial FibrillatioN: Follows with cardiology outpatient Takes Eloquis and Amiodarone Troponin 148. BNP 948. Takes apixaban; continue Cardiac history reviewed via EMR: January 22, 2019 TTE Interpretation Summary (as per Dr. Sunshine): --The left ventricular wall motion is normal --ejection fraction is 55-59% --LV diastolic function is mildly abnormal (grade I). --Mild aortic valve regurgitation is present. December 07, 2021 TTE Interpretation Summary (as per Dr. Cantu): --EF51% (bi-plane method of discs). --Grade 3 diastolic dysfunction consistent with restrictive physiology. --Poorly visualized valvular structures with mild aortic regurgitation by Doppler. --The aortic root is mildly enlarged. Last pacer interegation was scheduled for 08/09 but he did not go due to feeling ill. -November/2021 ECHO EF 51%, grade 3 diastolic dysfunction with resistant physiology. Hypertension: -Takes Lisinopril' hold with worsening creatinine function -Takes Carvedilol; continue CAD: CHF: Tachybradycardia syndrome: Status post pacemaker 2013 Last pacer interegation was scheduled for 08/09 but he did not go due to feeling ill. November/2021 ECHO EF 51%, grade 3 diastolic dysfunction'repeat ECHO CXR in AM daily weights consider fluid restriction DM2: On Jardiance and Metformin; will transition to ACHS FSBS and SSI Glucose 380 in ED 05/17: A1C 9.3; will recheck as it has been 3 months Stress dose level 3 for blood sugars Dyslipidemia: -Takes Rosuvastatin; continue CKD stage III: Creatinine 1.49; baseline 1.2-1.4 Hold nephrotoxic agents; trend LIZZIE: Does not use CPAP at home No supplemental oxygen at home VBG in the ED compensated Disposition: PCP: Dr. Garcia Code Status: Full Code VTE Prophylaxis: On apixaban A total of 88 minutes was spent with greater than 50% of that time personally reviewing all current laboratory work and diagnostic imaging studies obtained in the ED. Additionally, I was able to review the patients past medication reconciliation and history with direct visualization in the patients chart. Included in the time above, a portion of that time was spent assessing the patient while discussing and collaborating with specialists, if necessary, and making medical decisions regarding orders to be placed. All of the aforementioned completed while collaborating with Dr. Aguila for a full treatment plan. Please see his addendum for further details. History of Present Illness Chief Complaint: SOB Primary Care Provider: Crow Garcia DO Mr. Celaya presented to the [facility] with weakness, fatigue, recent diarrhea and hypoxia. Patient reports that over the past few days he has just felt "rundown". He sleeps daily in his recliner and denies orthopnea. Patient reports that he walks with a cane and that has become more difficult for him. In ED SPO2 88% improved to 96% on 3 L NC. CXR trace pleural effusions. Slight leukocytosis WBC 10.27. Troponin 148. BNP 948. Creatinine 1.49 (1.2-1.4). Glucose 380; Insulin 5 Units. Lactate 3.3. Patient hemodynamically stable. Tested positive for COVID in ED. Patient is vaccinated x2 without boosters. Reports having COVID April 2022. Cardiac history reviewed via EMR: January 22, 2019 TTE Interpretation Summary (as per Dr. Sunshine): --The left ventricular wall motion is normal --ejection fraction is 55-59% --LV diastolic function is mildly abnormal (grade I). --Mild aortic valve regurgitation is present. December 07, 2021 TTE Interpretation Summary (as per Dr. Cantu): --EF51% (bi-plane method of discs). --Grade 3 diastolic dysfunction consistent with restrictive physiology. --Poorly visualized valvular structures with mild aortic regurgitation by Doppler. --The aortic root is mildly enlarged. Last pacer interegation was scheduled for 08/09 but he did not go due to feeling ill. November/2021 echo EF 51%, grade 3 diastolic dysfunction with resistant physiology. Additional PMH includes: paroxysmal Atrial Fibrillation (On Eloquis), LIZZIE (not on CPAP), HTN, HLD, CKD 3, NIDDM2, pacemaker insertion 06/2013 dual-chamber and diastolic CHF. He has nonobstructive CAD that was diagnosed with a left catheterization 02/2010. On exam his fluid status is acceptable however does have bilateral lower extremity +1 edema. 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 A note to state that his amiodarone was discontinued 12/15 when there was a decision made between patient and cardiology to no longer pursue rhythm control and proceed with rate control with chronic anticoagulation therapy. Currently patient denies headache, dizziness, chest pain, shortness of breath, nausea, vomiting, visual or auditory changes, recent falls or trauma, abdominal pain, urinary changes, or new rashes. Patient will be admitted for further evaluation and management. Please see A/P for further details. Allergies Allergy/AdvReac Type Severity Reaction Status Date / Time No Known Allergies Allergy Unverified 08/14/22 14:41 Home Medications Medication Instructions Recorded Confirmed Type aspirin 81 mg tablet,delayed 81 mg PO DAILY ##0 03/23/15 08/14/22 History release carvedilol 25 mg tablet 37.5 mg PO BID #0 tabs 03/23/15 08/14/22 History metformin 500 mg tablet,extended 2,000 mg PO QAM #0 tabs 03/23/15 08/14/22 History release 24 hr nitroglycerin 0.4 mg sublingual 0.4 mg sublingual Q5M PRN Chest 03/23/15 08/14/22 History tablet (Nitrostat) Pain #0 BTLS potassium chloride 10 mEq 10 meq PO QAM #0 caps 03/23/15 08/14/22 History tablet,extended release rosuvastatin 10 mg tablet 10 mg PO QAM #0 tabs 03/23/15 08/14/22 History furosemide 40 mg tablet 50 mg PO QAM #0 tabs 10/06/15 08/14/22 History terazosin 5 mg capsule 5 mg PO HS #0 caps 10/06/15 08/14/22 History apixaban 5 mg tablet 5 mg PO BID ##0 12/10/15 08/14/22 History lisinopril 20 mg tablet 20 mg PO BID #0 tabs 12/10/15 08/14/22 History spironolactone 25 mg tablet 25 mg PO QAM #0 tabs 12/10/15 08/14/22 History acetaminophen 500 mg tablet 500 mg PO Q8H PRN Pain #0 tabs 09/13/16 08/14/22 History lidocaine 5 % topical patch 1 patch topical DAILY PRN Pain ##0 09/13/16 08/14/22 History cyanocobalamin (vitamin B-12) 500 500 mcg PO QAM 08/14/22 08/14/22 History mcg tablet empagliflozin 25 mg tablet 25 mg PO QAM 08/14/22 08/14/22 History (Jardiance) hydralazine 25 mg tablet 12.5 mg PO BID 08/14/22 08/14/22 History Past Med/Surg History Medical History (Updated 08/14/22 @ 17:59 by Johnathan Aguirre DO) COVID-19 Hypoxia Social History Smoking Status: Former smoker Smoking End Date: 40 years ago; Hx Alcohol Use: Yes Alcohol type: beer Hx Substance Use: No Preferred Language: Romansh Communication Ability: Effective 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: No Beliefs That Will Affect Care: None Current Living Situation: Family Current Living Situation Comment: Pt's daughter lives with him Feels Safe at Home: Yes Safety Concerns: Feels Safe At This Time Assistive Devices: Cane, Denture - Upper and Glasses Review of Systems Review of Systems: Neuro: (-) Falls, trauma, slurred speech HEENT: (-) NIEVES, dizziness, dysphagia, visual or auditory changes CV: (-) CP, palpitations, (+) swelling Resp: (+) SOB GI: (-) appetite changes, N/V/D, bowel changes : (-) urinary changes Skin: (-) rashes Psych: (-) anxiety, depression Physical Exam Physical Exam: Neuro: AAOx4, PERRLA, no aphagia, memory changes, CNII-XII grossly intact HEENT: head normocephalic, moist mucus membranes CV: Irregularly irregular , (-) M/G/R, (-) edema, cap refill < 3 seconds Resp: Lungs CTA in all melendez. On 3LNC GI: Abdomen S/NT/ND, Ax4 bowel sounds, (-) CVA tenderness Musculoskeletal: 5/5 B/L UE strength, 5/5 B/L LE strength. No gait disturbance Skin: (-) rashes , (-) erythema. Psych: euthymic mood Results & Data Results & Data ([facility]) Vital Signs (Past 12 Hours) Vital Signs Temp Pulse Pulse Resp BP BP Pulse Ox 08/14/22 15:00 91 H 22 92 08/14/22 15:00 113/67 08/14/22 14:30 90 14 124/68 96 08/14/22 13:57 08/14/22 13:47 36.7 C 90 23 101/71 92 O2 Del Method O2 Flow Rate 08/14/22 15:00 Nasal Cannula 3 08/14/22 15:00 08/14/22 14:30 Nasal Cannula 2 08/14/22 13:57 Nasal Cannula 2 08/14/22 13:47 Room Air Laboratory Results Short CBC 08/14/22 Range/Units 13:54 WBC 10.27 (4.8-10.8) K/ul Hgb 18.0 (14.0-18.0) g/dl Hct 51.6 (42.0-52.0) % Plt Count 195 (130-400) K/uL BMP 08/14/22 13:54 Sodium 132 L Potassium 5.1 Chloride 94 L Carbon Dioxide 26 BUN 27 H Creatinine 1.49 H Glucose 380 H* Calcium 9.7 Liver Function 08/14/22 Range/Units 13:54 Total Bilirubin 1.8 H (0.2-1.0) mg/dl AST 10 L (13-39) U/L ALT 7 (7-52) U/L Alkaline Phosphatase 55 (34-104) U/L Albumin 3.9 (3.4-5.0) gm/dl Diagnostic Findings Chest X-Ray 08/14/22 13:55 SINGLE VIEW CHEST CLINICAL HISTORY: Atypical chest pain FINDINGS: An AP, portable, upright chest radiograph is compared to study dated 09/17/2016. A 2-lead cardiac pacemaker is unchanged in position and partially obscures the left upper chest. The heart is enlarged noting atherosclerotic calcification of the thoracic. There is pulmonary vascular congestion. Trace pleural effusions are suspected. Atelectasis is noted at the lung bases. No pneumothorax is seen. The skeletal structures are osteopenic. The bony thorax is grossly intact. Degenerative change is noted in the shoulders and thoracic spine. IMPRESSION: 1. Cardiomegaly and cardiac pacemaker with evidence of congestive failure. 2. Suspect trace pleural effusions. ACT 112: Negative or not required by law. Electronically signed by: Jb Mckinney M.D. 08/14/2022 2:20 PM Code Status & VTE Plan Code Status Full Code in the event of cardiac or respiratory arrest VTE Prophylaxis Plan VTE Prophylaxis will be ordered: Yes Supervising Physician Co-Signing Physician Notes Attending addendum The patient was seen and examined in telemetry unit and in the COVID room He has been complaining of increasing shortness of breath for the last 10 days and also has swelling of the legs Denies any cough, palpitation, chest pain No fever and or chills On examination No apparent distress at rest Chest decreased breath sounds with minimal crackles at the bases HeartS1-S2 regular Abdomenbenign but distended with normal bowel sound Extremities 1+ edema bilaterally with chronic skin changes CNSalert, awake and oriented x3 His labs, EKG and imaging studies reviewed Noted to be COVID-19 virus positive with desaturation-started on dexamethasone LUIZA limiting the use of remdesivir Has had 2 vaccines for COVID Could be complicated by component of CHF with history of paroxysmal atrial fibrillation and tachybradycardia syndrome with permanent pacemaker Uncontrolled diabetes with blood sugar around 380s-metformin will be on hold and will start with sliding scale insulin coverage Agree with assessment and plan as outlined above by Yuliana Aguila
[2022-08-14 15:59] LABS: Base Excess VBG 1.5 mEq/L; HCO3 VBG 27 mmol/L; Oxygen Saturation VBG < 60.0 %; PCO2 VBG 43 mmHg (38-50); PO2 VBG 34 mmHg
[2022-08-14] MEDS ORDERED: PHARMACY GLYCEMIC MGMT CONSULT PRN (17:16)
[2022-08-14 17:30] LABS: Appearance Urine Clear (Clear); Bacteria Urine Automated Negative (Negative); Bilirubin Urine Negative (Negative); Blood Urine Negative (Negative); Color Urine Yellow; Glucose Urine UA 3+ (Negative); Ketones Urine Negative (Negative); Leukocyte Esterase Urine Trace (Negative); Nitrite Urine Negative (Negative); Protein Urine Negative (Negative); RBC Urine Automated 0-4 /hpf (0-4); Specific Gravity Urine 1.027 (1.000-1.030); Urobilinogen Urine Negative (Negative)
[2022-08-14] MEDS ORDERED: PNEUMOCOCCAL POLYSACCHARIDES 25 MCG/0.5 ML VIAL/SYR IM ONE (17:58)
[2022-08-14 17:59] LABS: Magnesium 2.2 mg/dl (1.7-2.4)
[2022-08-14] MEDS: INSULIN ASPART PER UNIT SC SCH ×2 (18:45→20:14)
[2022-08-14] MEDS ORDERED: LANTUS PER UNIT CHARGE SQ SCH ×2 (21:00)
[2022-08-14] MEDS ORDERED: INSULIN ASPART PER UNIT SC SCH (21:00)
[2022-08-14] MEDS ORDERED: SODIUM CHLORIDE 0.9% 500 ML IV SCH (22:00)
[2022-08-15] MEDS: INSULIN ASPART PER UNIT SC SCH ×6 (00:33→21:14)
[2022-08-15 06:41] LABS: Hematocrit (blood only) 53.1 % (42.0-52.0); Hemoglobin 17.9 g/dl (14.0-18.0); Mean Corpuscular Hemoglobin 32.7 pg (25.0-34.0); Mean Corpuscular Hgb Conc 33.7 g/dL (32.0-36.0); Mean Corpuscular Volume 97.1 fL (80.0-100.0); Mean Platelet Volume 10.1 fL (9.4-12.4); Platelet Count 222 K/uL (130-400); RDW Coefficient of Variation 14.5 % (11.5-14.5); RDW Standard Deviation 51.8 fL (36.4-46.3); Red Blood Count 5.47 M/uL (4.70-6.10)
[2022-08-15 06:52] LABS: BUN Creatinine Ratio 24.5 (10-20); Calcium 9.5 mg/dl (8.5-10.1); Est GFR (African American) 52.6 ml/min; Est GFR (Non-African American) 45.4 ml/min; Phosphorus 5.2 mg/dl (2.5-4.9); Potassium 4.2 mmol/L (3.5-5.1)
[2022-08-15 08:13] LABS: Estimated Average Glucose 226 mg/dl; Hemoglobin A1C 9.5 % (4.5-5.6)
--- NOTE | 2022-08-15 08:42 | Pharmacy Report ---
Pharmacy Glycemic Short Note 2 - Date of Service August 15, 2022 - Glycemic Short BSG Results (Last 24 hours): 08/14/22 08/14/22 08/14/22 13:54 14:50 16:13 Glucose 380 H* POC Glucose 361 H* 303 H* 08/14/22 08/14/22 08/15/22 17:08 19:52 00:30 Glucose POC Glucose 300 H 325 H* 237 H 08/15/22 08/15/22 08/15/22 04:23 05:54 07:59 Glucose 183 H POC Glucose 180 H 192 H OUTPATIENT ANTIDIABETIC REGIMEN: * Jardiance 25 mg PO daily * Metformin 2 g PO daily HbA1c: 9.5% (08/15/22) ASSESSMENT: * DA is a 77 year old male w/ poorly controlled T2DM, who presented to ED yesterday with increased weakness, diarrhea, and SOB * Subsequently tested positive for COVID-19 and started on dexamethasone 6 mg IV daily * BSGs significantly elevated on presentation (>300 mg/dL), but responded nicely to initial SC/IV insulin regimen * BSGs still elevated this morning at 192 mg/dL, which is not unsurprising given IV steroids * Will continue with original Lantus order, but change to AM to be given with steroid * Will slightly tighten carb ratio this morning PLAN FOR INPATIENT GLYCEMIC CONTROL: * Hold outpatient oral diabetes medications * Basal insulin * Lantus 30 units SC daily (w/ IV dexamethasone) * Bolus insulin * NovoLog per scale ACHS or Q6hrs while NPO * Goal Range: Low 110 mg/dL - High 140 mg/dL * Correction Factor: 15 mg/dL/unit * Nutritional / Prandial insulin per carb ratio of 1 unit per 5 grams CHO consumed
[2022-08-15] MEDS ORDERED: LANTUS PER UNIT CHARGE SQ ONE (09:00)
[2022-08-15] MEDS ORDERED: PROMETHAZINE HCL 25 MG in SODIUM CHLORIDE 0.9% 50 ML IV PRN (09:01)
[2022-08-15] MEDS: dexAMETHasone 6 MG in SYRINGE 0 ML IV SCH (09:13)
--- NOTE | 2022-08-15 11:15 | Cardiology Consultation ---
Date of Consultation August 15, 2022 Assessment & Plan (1) Permanent atrial fibrillation: (2) Chronic diastolic CHF (congestive heart failure), NYHA class 1: (3) Elevated troponin: (4) Hypoxia: (5) COVID-19: (6) Tachy-aquiles syndrome: Plan Permanent atrial fib, amiodarone stopped 11/2021 in favor or rate control strategy over rhythm management. Hx of TBS s/p dcp , 2013 Anticoagulated on Eliquis. No evidence of acute on chronic diastolic CHF Elevated troponin likely in the setting of acute illness with COVID-19 and tachycardic rates with AFIB. Unlikely to be due to ACS. 1. Restart BB- normally on Coreg 37.5 mg BID at home, will start with Metoprolol tartrate 25 mg q6 hrs. 2. Restart Eliquis 5 mg BID 3. Monitor volume status while taking steroids for COVID. Future considerations of restarting Lasix. 4. Echo pending to assess for LVEF and for any new WMA. Case discussed with Dr. Cantu- will follow. Supervising Physician Co-Signing Physician Notes I have reviewed the advanced practitioner documentation and agree. I saw and evaluated the patient on date of service referenced in note and have performed the following medically appropriate history and/or exam: We will continue to follow rate control strategy and change beta-temo to metoprolol as above. Restart Eliquis. History of Present Illness Reason for Consultation: Shortness of breath [facility]ing Phys[facility] Attending Physician: Abiodun Aguila MD History of Present Illness 77-year-old male who initially presented to [facility] emergency department due to weakness and fatigue. Was found to be hypoxic with oxygen levels in the upper 80s. Chest x-ray revealed trace pleural effusions. Lab work showed leukocytosis with a WBC of 10.27. Lactate elevated (3.3>>2.2>>4.0>>3.0). COVID testing was performed which was positive. Currently being treated with dexamethasone. EKG 08/14: A-fib with frequent ventricular paced complexes, 87 bpm. Telemetry: A-fib/flutter, paced 90s to 120s. Normally maintains on carvedilol 37.5 mg twice daily and Eliquis 5 mg twice daily as an outpatient. Blood pressure well controlled this admission. Chart and telemetry reviewed. In person evaluation was deferred due to positive COVID-19 diagnosis and attempts to limit spread by limiting patient contact. Patient's status reviewed with nursing staff. Per nursing staff- working with PT. Noted weakness- no chest pain. No signs of acute CHF. Past medical history: Chronic diastolic CHF Paroxysmal now permanent atrial fibrillation, amiodarone discontinued 11/2021. Anticoagulated on Eliquis Tachybradycardia syndrome, status post dual-chamber permanent pacemaker 07/23/2013 Hypertension with hypertensive heart disease Nonobstructive CAD per cardiac catheterization 02/2010 Enlarged aortic root and ascending aorta LIZZIE Elevated hemoglobin and hematocrit, mildly elevated EPO-suspected secondary to untreated LIZZIE and/or chronic hypoxemia Dyslipidemia CKD stage III Allergies Allergy/AdvReac Type Severity Reaction Status Date / Time No Known Allergies Allergy Unverified 08/14/22 14:41 Home Medications Medication Instructions Recorded Confirmed Type aspirin 81 mg tablet,delayed 81 mg PO DAILY ##0 03/23/15 08/14/22 History release metformin 500 mg tablet,extended 2,000 mg PO QAM #0 tabs 03/23/15 08/14/22 History release 24 hr nitroglycerin 0.4 mg sublingual 0.4 mg sublingual Q5M PRN Chest 03/23/15 08/14/22 History tablet (Nitrostat) Pain #0 BTLS potassium chloride 10 mEq 10 meq PO QAM #0 caps 03/23/15 08/14/22 History tablet,extended release rosuvastatin 10 mg tablet 10 mg PO QAM #0 tabs 03/23/15 08/14/22 History terazosin 5 mg capsule 5 mg PO HS #0 caps 10/06/15 08/14/22 History apixaban 5 mg tablet 5 mg PO BID ##0 12/10/15 08/14/22 History acetaminophen 500 mg tablet 500 mg PO Q8H PRN Pain #0 tabs 09/13/16 08/14/22 History lidocaine 5 % topical patch 1 patch topical DAILY PRN Pain ##0 09/13/16 08/14/22 History cyanocobalamin (vitamin B-12) 500 500 mcg PO QAM 08/14/22 08/14/22 History mcg tablet empagliflozin 25 mg tablet 25 mg PO QAM 08/14/22 08/14/22 History (Jardiance) hydralazine 25 mg tablet 12.5 mg PO BID 08/14/22 08/14/22 History dexamethasone 6 mg tablet 6 mg PO DAILY #7 tabs 08/16/22 Rx furosemide 40 mg tablet 40 mg PO QAM #30 tabs 08/16/22 08/14/22 Rx metoprolol tartrate 50 mg tablet 50 mg PO BID 30 days #60 tabs 08/16/22 Rx Patient History Medical History (Updated 08/15/22 @ 11:46 by TOBIN Sharif) COVID-19 Hypoxia Social History Smoking Status: Former smoker Smoking End Date: 40 years ago; Hx Alcohol Use: Yes Alcohol type: beer Hx Substance Use: No Preferred Language: Kyrgyz Communication Ability: Effective Mac Developer Required: No Beliefs That Will Affect Care: None Current Living Situation: Family Current Living Situation Comment: Pt's daughter lives with him Feels Safe at Home: Yes Safety Concerns: Feels Safe At This Time Assistive Devices: Cane and Walker Review of Systems Review of Systems: Other (deferred due to +covid, deferred to nursing staff. ) Physical Exam Physical Exam: Deferred due to covid-19+, deferred to nursing staff. Results & Data ([facility]) Vital Signs (Past 12 Hours) Vital Signs Temp Pulse Resp BP Pulse Ox O2 Del Method O2 Flow Rate 08/15/22 08:03 35.9 C L 104 H 16 127/87 97 Nasal Cannula 2 08/15/22 04:00 36.6 C 88 20 131/90 98 Nasal Cannula 2 08/14/22 23:30 36.4 C L 89 17 121/82 96 Nasal Cannula 2 Laboratory Results Cardiac Enzymes 08/14/22 08/14/22 Range/Units 13:54 13:54 AST 10 L (13-39) U/L Troponin I High Sens 148.3 H* (0-20) pg/ml B-Natriuretic Peptide 948 H (0-100) pg/ml Coagulation 08/14/22 Range/Units 13:54 B-Natriuretic Peptide 948 H (0-100) pg/ml CBC 08/14/22 08/15/22 Range/Units 13:54 05:54 WBC 10.27 9.30 (4.8-10.8) K/ul RBC 5.49 5.47 (4.70-6.10) M/uL Hgb 18.0 17.9 (14.0-18.0) g/dl Hct 51.6 53.1 H (42.0-52.0) % Plt Count 195 222 (130-400) K/uL Neut # (Auto) 8.28 H (1.40-6.50) K/uL Lymph # (Auto) 1.11 L (1.2-3.4) K/uL Schleicher # (Auto) 0.75 H (0.11-0.59) K/uL Eos # (Auto) 0.02 (0-0.50) K/uL Baso # (Auto) 0.03 (0-0.2) K/uL Comprehensive Metabolic Panel 08/14/22 08/15/22 Range/Units 13:54 05:54 Sodium 132 L 135 L (136-145) mmol/L Potassium 5.1 4.2 (3.5-5.1) mmol/L Chloride 94 L 98 (98-107) mmol/L Carbon Dioxide 26 29 (21-32) mmol/L BUN 27 H 36 H (6-23) mg/dl Creatinine 1.49 H 1.47 H (0.6-1.4) mg/dl Glucose 380 H* 183 H (70-99(Fasting)) mg/dl Calcium 9.7 9.5 (8.5-10.1) mg/dl AST 10 L (13-39) U/L ALT 7 (7-52) U/L Alkaline Phosphatase 55 (34-104) U/L Total Protein 7.1 (6.0-8.3) gm/dl Albumin 3.9 (3.4-5.0) gm/dl Intake and Output 08/14/22 08/15/22 08/15/22 22:59 06:59 14:59 Intake Total 60 / 560 500 / 560 Output Total 401 / 702 301 / 702 Balance -341 / -142 199 / -142 Intake: IV 500 / 500 Sodium Chloride 0.9% 500 ml @ 500 / 500 500 mls/hr IV .Q1H [facility] Rx#: [id number] Oral 60 / 60 Output: Urine 400 / 700 300 / 700 # Bowel Movements 1 / 2 1 / 2 Other: Weight 86.9 kg Weight Measurement Method Built in [facility] Diagnostic Findings Echo outpatient, 11/2021 The primary indication after review was deemed appropriate and the examination was performed. Calculated LV ejection Fraction = 51% (bi-plane method of discs). Grade 3 diastolic dysfunction consistent with restrictive physiology. Poorly visualized valvular structures with mild aortic regurgitation by Doppler. The aortic root is mildly enlarged. The proximal ascending thoracic aorta is normal sized.
--- NOTE | 2022-08-15 11:20 | Electrocardiogram Report ---
Test Reason : Blood Pressure : / mmHG Vent. Rate : 087 BPM Atrial Rate : 084 BPM P-R Int : 000 ms QRS Dur : 126 ms QT Int : 442 ms P-R-T Axes : 000 -47 173 degrees QTc Int : 531 ms Atrial fibrillation with frequent ventricular-paced complexes and fusion beats Left axis deviation Non-specific intra-ventricular conduction block Cannot rule out Anteroseptal infarct , age undetermined T wave abnormality, consider inferolateral ischemia Abnormal ECG When compared with ECG of 19-FEB-2017 14:35, Electronic ventricular pacemaker has replaced Electronic atrial pacemaker Confirmed by Titi Puga ([id number]) on 08/15/2022 11:20:11 AM Referred By: REFERRED SELF Confirmed By:Best Puga
--- NOTE | 2022-08-15 11:47 | XRay Report ---
XR chest 1V portable CLINICAL HISTORY: post-operative coughing and wheezing TECHNIQUE: Single frontal radiograph of the chest was obtained. Comparison: Comparison is made to chest radiograph 08/14/2022 FINDINGS: Dual lead pacemaker is seen. Calcified aortic knob is seen. The lungs are clear. No evidence of pleur al effusion or pneumothorax. IMPRESSION: No acute chest disease. ACT 112: Negative or not required by law. Electronically signed by: Marcus Andrews M.D. 08/15/2022 11:46 AM
[2022-08-15] MEDS: METOPROLOL TARTRATE 25 MG TAB PO SCH ×2 (12:36→17:41)
[2022-08-15] MEDS: APIXABAN 5 MG TABLET PO SCH ×2 (12:36→21:28)
[2022-08-15 15:49] LABS: C Reactive Protein 8.01 mg/dl (0-0.5)
[2022-08-15] MEDS ORDERED: NITROGLYCERIN SL 0.4 MG/TAB TAB SL PRN (17:53)
[2022-08-15] MEDS ORDERED: ACETAMINOPHEN 500 MG TAB PO PRN (17:53)
[2022-08-15] MEDS ORDERED: LIDOCAINE 5% 1 PATCH TD PRN (17:53)
--- NOTE | 2022-08-15 18:04 | Hospitalist Progress Note ---
Date of Service August 15, 2022 Assessment & Plan (1) COVID-19: (2) Hypoxia: (3) Paroxysmal a-fib: (4) Hypertension: (5) Dyslipidemia: (6) Tachy-aquiles syndrome: (7) CAD (coronary artery disease): (8) DM type 2 (diabetes mellitus, type 2): (9) CKD (chronic kidney disease), stage III: (10) Sleep apnea: Plan COVID-19: Hypoxia: SPO2 88% in ED; 96% on 3 LNC Incidental COVID positive in ED; vaccinated x2 against COVID; recently positive for COVID 04/2022 Decadron 6 mg in ED; continue x9 days Stress dose level 3 for blood sugars Consider remdesivir if no improvement with hypoxia Lactate 3.3; will trend Does not meet sepsis criteria without leukocytosis, tachycardia or tachypnea Procalcitonin normal at 0.40 CRP is elevated at 8.0 Blood cultures pending Has been saturating normally on room air-will not need remdesivir Clinically much better Paroxysmal Atrial FibrillatioN: Follows with cardiology outpatient Takes Eloquis and Amiodarone Troponin 148. BNP 948. Takes apixaban; continue Cardiac history reviewed via EMR: January 22, 2019 TTE Interpretation Summary (as per Dr. Sunshine): --The left ventricular wall motion is normal --ejection fraction is 55-59% --LV diastolic function is mildly abnormal (grade I). --Mild aortic valve regurgitation is present. December 07, 2021 TTE Interpretation Summary (as per Dr. Cantu): --EF51% (bi-plane method of discs). --Grade 3 diastolic dysfunction consistent with restrictive physiology. --Poorly visualized valvular structures with mild aortic regurgitation by Doppler. --The aortic root is mildly enlarged. Last pacer interegation was scheduled for 08/09 but he did not go due to feeling ill. -November/2021 ECHO EF 51%, grade 3 diastolic dysfunction with resistant physiology. -Appreciate cardiology input and recommendation - Hypertension: -Takes Lisinopril' hold with worsening creatinine function -Takes Carvedilol; continue -Started on metoprolol 25 mg every 6 hourly CAD: CHF: Tachybradycardia syndrome: Status post pacemaker 2013 Last pacer interegation was scheduled for 08/09 but he did not go due to feeling ill. November/2021 ECHO EF 51%, grade 3 diastolic dysfunction'repeat ECHO CXR in AM-no acute disease daily weights consider fluid restriction DM2: On Jardiance and Metformin; will transition to ACHS FSBS and SSI Glucose 380 in ED 05/17: A1C 9.3; will recheck as it has been 3 months Stress dose level 3 for blood sugars Dyslipidemia: -Takes Rosuvastatin; continue CKD stage III: Creatinine 1.49; baseline 1.2-1.4 Hold nephrotoxic agents; trend LIZZIE: Does not use CPAP at home No supplemental oxygen at home VBG in the ED compensated Disposition: PCP: Dr. Garcia Code Status: Full Code VTE Prophylaxis: On apixaban Admission and Anticipated Discharge Date Admission Date: August 14, 2022 Subjective 08/15/2022 The patient was seen and examined in telemetry unit and in the COVID room He does not have any symptoms of COVID and has been saturating normally on room air He has been feeling much better with diuresis Denies any chest pain and/or palpitation Review of Systems Review of Systems: All systems reviewed and are unremarkable except as noted below Physical Exam Physical Exam: Sitting on a chair without any acute distress Constitutional: well developed, well nourished and + obese; not ill appearing Eyes: PERRL, conjunctivae normal, anicteric sclerae ENMT: external ear and nose normal, oropharynx normal Neck: trachea midline, no thyromegaly Respiratory: no respiratory distress Auscultation: + diminished lung sounds and + crackles (Minimal crackles at the bases) Cardiovascular: Rate/Rhythm: + irregularly irregular; not tachycardic Heart Sounds: normal S1 and normal S2 Extremities: + edema (1+ edema bilaterally) Gastrointestinal (Abdomen): Inspection/Auscultation: normal bowel sounds; abdomen not distended Percussion/Palpation: abdomen soft; abdomen nontender Musculoskeletal: No acute arthritis involving any joint Neurologic: Alert, awake and oriented x3 Results & Data Results & Data ([facility]) Vital Signs (Past 12 Hours) Vital Signs Temp Pulse Resp BP Pulse Ox Pulse Ox O2 Del Method 08/15/22 16:56 36.8 C 86 16 112/75 92 Room Air 08/15/22 11:54 116 H 18 128/72 93 Room Air 08/15/22 11:28 Room Air 08/15/22 10:51 94 08/15/22 08:03 35.9 C L 104 H 16 127/87 97 Nasal Cannula O2 Flow Rate O2 Flow Rate 08/15/22 16:56 08/15/22 11:54 08/15/22 11:28 08/15/22 10:51 0 08/15/22 08:03 2 Laboratory Results Short CBC 08/15/22 Range/Units 05:54 WBC 9.30 (4.8-10.8) K/ul Hgb 17.9 (14.0-18.0) g/dl Hct 53.1 H (42.0-52.0) % Plt Count 222 (130-400) K/uL BMP 08/15/22 05:54 Sodium 135 L Potassium 4.2 Chloride 98 Carbon Dioxide 29 BUN 36 H Creatinine 1.47 H Glucose 183 H Calcium 9.5 Medications Administered Current Inpatient Medications Acetaminophen (Acetaminophen 325 Mg Tab) 650 mg PO Q4H PRN PRN Reason: Pain or Fever Stop: 09/13/22 15:13 Acetaminophen (Acetaminophen 500 Mg Tab) 500 mg PO Q8H PRN PRN Reason: Pain Stop: 09/14/22 17:52 Al Hydrox/Mg Hydrox/Simethicone (Aluminum/Magnesium Susp 30 Ml Udc) 15 ml PO Q4H PRN PRN Reason: Dyspepsia Stop: 09/13/22 15:13 Apixaban (Apixaban 5 Mg Tablet) 5 mg PO BID [facility] Stop: 09/14/22 11:44 Last Admin: 08/15/22 12:36 Dose: 5 mg Aspirin (Aspirin 81 Mg Ectab) 81 mg PO DAILY [facility] Stop: 09/15/22 08:59 Carvedilol (Carvedilol 12.5 Mg Tab) 37.5 mg PO BID [facility] Stop: 09/14/22 20:59 Cyanocobalamin (Cyanocobalamin (B-12) 500 Mcg Tablet) 500 mcg PO QAM [facility] Stop: 09/15/22 08:59 Dextrose (Dextrose 50% 50 Ml Syringe) 25 - 50 ml IV UD PRN; Protocol PRN Reason: Hypoglycemia Protocol Stop: 09/13/22 17:15 Glucagon (Glucagon For Inj 1 Mg Vial) 1 mg SQ UD PRN; Protocol PRN Reason: Hypoglycemia Protocol Stop: 09/13/22 17:15 Glucose (Glucose 10 Tab/Tube) 4 - 8 tab PO UD PRN; Protocol PRN Reason: Hypoglycemia Treatment Stop: 09/13/22 17:15 Glucose (Glucose 40% Gel 15 Gm Tube) 15 - 30 gm PO UD PRN; Protocol PRN Reason: Hypoglycemia Protocol Stop: 09/13/22 17:15 Hydralazine HCl (Hydralazine Hcl 25 Mg Tab) 12.5 mg PO BID [facility] Stop: 09/14/22 20:59 Dexamethasone 6 mg/ Syringe 1.5 mls @ 1 mls/min IV Q24H [facility] Stop: 09/20/22 08:00 Last Admin: 08/15/22 09:13 Dose: 1 mls/min Promethazine HCl 25 mg/ Sodium (Chloride) 51 mls @ 204 mls/hr IV Q6H PRN PRN Reason: Nausea And Vomiting Stop: 09/14/22 09:00 Insulin Aspart (Insulin Aspart Per Unit) 0 units SC ACHS [facility] Stop: 09/13/22 17:44 Last Admin: 08/15/22 12:26 Dose: 11 units Insulin Glargine (Lantus Per Unit Charge) 0 units SQ HS [facility]; Protocol Stop: 08/15/22 21:01 Lidocaine (Lidocaine 5% 1 Patch) 1 patch TD DAILY PRN PRN Reason: Pain Stop: 09/14/22 17:52 Lisinopril (Lisinopril 20 Mg Tab) 20 mg PO BID [facility] Stop: 09/14/22 20:59 Magnesium Hydroxide (Magnesium Hydroxide Susp 30 Ml Udc) 30 ml PO Q12H PRN PRN Reason: Constipation Stop: 09/13/22 15:13 Metoprolol Tartrate (Metoprolol Tartrate 25 Mg Tab) 25 mg PO Q6 [facility] Stop: 09/14/22 11:59 Last Admin: 08/15/22 17:41 Dose: 25 mg Miscellaneous (Carbohydrates For Hypoglycemia ) 15 - 30 gm PO UD PRN PRN Reason: Hypoglycemia Protocol Stop: 09/13/22 17:15 Miscellaneous (Remove Lidoderm Patch) 1 each N/A DAILY@2100 [facility] Stop: 09/14/22 20:59 Miscellaneous Information (Pharmacy Glycemic Mgmt Consult) 1 each N/A UD PRN PRN Reason: Consult Stop: 09/13/22 17:15 Nitroglycerin (Nitroglycerin Sl 0.4 Mg/Tab Tab) 0.4 mg SL Q5M PRN PRN Reason: Chest Pain Stop: 09/14/22 17:52 Ondansetron HCl (Ondansetron Inj 2 Mg/Ml 2 Ml Vial) 4 mg IV Q6H PRN PRN Reason: Nausea Stop: 09/13/22 15:13 Polyethylene Glycol (Polyethylene (Miralax) 17 Gm Pack) 17 gm PO DAILY PRN PRN Reason: Constipation Stop: 09/13/22 15:13 Potassium Chloride (Potassium Chloride 10 Meq Tabcr) 10 meq PO QAM [facility] Stop: 09/15/22 08:59 Spironolactone (Spironolactone 25 Mg Tab) 25 mg PO QAM [facility] Stop: 09/15/22 08:59 Terazosin HCl (Terazosin Hcl 5 Mg Cap) 5 mg PO HS [facility] Stop: 09/14/22 20:59 Zolpidem Tartrate (Zolpidem Tartrate 5 Mg Tab) 5 mg PO HS PRN PRN Reason: Sleep Stop: 09/13/22 15:13
[2022-08-15] MEDS ORDERED: carvediloL 12.5 MG TAB PO SCH (21:00)
[2022-08-15] MEDS ORDERED: lisinopril 20 MG TAB PO SCH (21:00)
[2022-08-15] MEDS ORDERED: LANTUS PER UNIT CHARGE SQ SCH (21:00)
[2022-08-15] MEDS ORDERED: TERAZOSIN HCL 5 MG CAP PO SCH (21:00)
[2022-08-15] MEDS: hydrALAZINE HCL 25 MG TAB PO SCH (21:30)
[2022-08-16] MEDS: METOPROLOL TARTRATE 25 MG TAB PO SCH ×2 (01:06→06:08)
--- NOTE | 2022-08-16 07:45 | Cardiology Progress Note ---
Date of Service August 16, 2022 Assessment & Plan (1) Permanent atrial fibrillation: (2) Chronic diastolic CHF (congestive heart failure), NYHA class 1: (3) Elevated troponin: (4) Hypoxia: (5) COVID-19: (6) Tachy-aquiles syndrome: Plan Permanent atrial fib, amiodarone stopped 11/2021 in favor or rate control strategy over rhythm management. Hx of TBS s/p dcp, 2014 Anticoagulated on Eliquis. No evidence of acute on chronic diastolic CHF Elevated troponin likely in the setting of acute illness with COVID-19 and tachycardic rates with AFIB. Unlikely to be due to ACS. 1. Continue metoprolol tartrate- will transition to 50 mg BID. An additional 25 mg will be given this am. Continue metoprolol tartrate 50 mg BID at discharge. DISCONTINUE COREG. 2. Continue Eliquis 5 mg BID 3. BP has been well controlled. Reccomend continuing to hold Aldactone and lisinopril at discharge. Recommend follow up BMP in 1 week and nurse BP check at that time to reassess need to restart. Case discussed with Dr. Cantu- No further recommendations from a cardiac standpoint. Please reach out with further questions or concerns. Admission and Anticipated Discharge Date Admission Date: August 14, 2022 Supervising Physician Co-Signing Physician Notes I have reviewed the advanced practitioner documentation and agree. I saw and evaluated the patient on date of service referenced in note and have performed the following medically appropriate history and/or exam: Agree with above medication changes. Aldactone and lisinopril to be held with close follow-up for repeat BMP and BP check in 1 week. Subjective 77-year-old male who presented to [facility] emergency department due to weakness and fatigue. Was found to be hypoxic. Diagnosed with COVID and treated with dexamethasone. Patient carries a history of tachybradycardia syndrome and permanent atrial fibrillation. On admission heart rates were elevated. 08/15: Telemetry revealed atrial fibrillation with rates in the 90s to 120s. Beta-temo restarted. Normally maintained on carvedilol however due to controlled blood pressures metoprolol tartrate 25 mg every [address] Eliquis was also restarted for stroke prevention. Furosemide, Aldactone, and lisinopril were held due to renal dysfunction. Patient was restarted on home dose of hydralazine and terazosin. Echonormal LVEF of 50 to 55% with mild concentric LVH. Apical wall motion abnormal reflecting pacemaker activation. Poorly visualized valvular structures with mild AI and mild MR. 08/16: Telemetry: AFIB 80-110s Chart and telemetry reviewed. In person evaluation was deferred due to positive COVID-19 diagnosis and attempts to limit spread by limiting patient contact. Patient's status reviewed with nursing staff. Per nursing staff- working with PT. Noted weakness- no chest pain. No signs of acute CHF. Review of Systems Review of Systems: in person ROS deferred to limit contact Physical Exam Physical Exam: Deferred due to covid-19+, deferred to nursing staff. Results & Data ([facility]) Vital Signs (Past 12 Hours) Vital Signs Temp Pulse Resp BP Pulse Ox O2 Del Method O2 Flow Rate 08/16/22 04:45 36.7 C 84 19 128/92 98 Nasal Cannula 08/16/22 01:31 97 Nasal Cannula 2 08/15/22 21:38 Room Air 08/15/22 20:00 36.7 C 94 H 19 132/79 100 Room Air Laboratory Results CBC 08/16/22 Range/Units 07:28 WBC 13.07 H (4.8-10.8) K/ul RBC 5.15 (4.70-6.10) M/uL Hgb 17.0 (14.0-18.0) g/dl Hct 49.5 (42.0-52.0) % Plt Count 192 (130-400) K/uL Neut # (Auto) 10.70 H (1.40-6.50) K/uL Lymph # (Auto) 1.43 (1.2-3.4) K/uL Hall # (Auto) 0.79 H (0.11-0.59) K/uL Eos # (Auto) 0.00 (0-0.50) K/uL Baso # (Auto) 0.02 (0-0.2) K/uL Comprehensive Metabolic Panel 08/16/22 Range/Units 07:28 Sodium 134 L (136-145) mmol/L Potassium 3.9 (3.5-5.1) mmol/L Chloride 98 (98-107) mmol/L Carbon Dioxide 29 (21-32) mmol/L BUN 46 H (6-23) mg/dl Creatinine 1.14 D (0.6-1.4) mg/dl Glucose 120 H (70-99(Fasting)) mg/dl Calcium 9.7 (8.5-10.1) mg/dl Intake and Output 08/15/22 08/16/22 08/16/22 22:59 06:59 14:59 Intake Total 100 / 100 Output Total 100 / 500 Balance -100 / -400 100 / -400 Intake: Oral 100 / 100 Output: Urine 100 / 500 Other: Weight 87.4 kg
[2022-08-16 08:13] LABS: Basophils # (auto) 0.02 K/uL (0-0.2); Basophils % (auto) 0.2 %; Hematocrit (blood only) 49.5 % (42.0-52.0); Immature Granulocytes # (auto) 0.13 K/uL (0.01-0.20); Lymphocytes # (auto) 1.43 K/uL (1.2-3.4); Lymphocytes % (auto) 10.9 %; Mean Corpuscular Hgb Conc 34.3 g/dL (32.0-36.0); Mean Corpuscular Volume 96.1 fL (80.0-100.0); Mean Platelet Volume 10.1 fL (9.4-12.4); Monocytes # (auto) 0.79 K/uL (0.11-0.59); Neutrophils % (auto) 81.9 %; Platelet Count 192 K/uL (130-400); RDW Coefficient of Variation 14.3 % (11.5-14.5); RDW Standard Deviation 49.6 fL (36.4-46.3); Red Blood Count 5.15 M/uL (4.70-6.10); White Blood Count 13.07 K/ul (4.8-10.8)
[2022-08-16] MEDS: hydrALAZINE HCL 25 MG TAB PO SCH (08:27)
[2022-08-16] MEDS: APIXABAN 5 MG TABLET PO SCH (08:29)
[2022-08-16] MEDS: dexAMETHasone 6 MG in SYRINGE 0 ML IV SCH (08:29)
[2022-08-16 08:32] LABS: BUN Creatinine Ratio 40.4 (10-20); Calcium 9.7 mg/dl (8.5-10.1); Est GFR (African American) 71.5 ml/min; Est GFR (Non-African American) 61.7 ml/min; Magnesium 2.4 mg/dl (1.7-2.4); Potassium 3.9 mmol/L (3.5-5.1)
[2022-08-16] MEDS: INSULIN ASPART PER UNIT SC SCH ×2 (08:40→12:52)
[2022-08-16] MEDS ORDERED: SPIRONOLACTONE 25 MG TAB PO SCH (09:00)
[2022-08-16] MEDS ORDERED: ASPIRIN 81 MG ECTAB PO SCH (09:00)
[2022-08-16] MEDS ORDERED: CYANOCOBALAMIN (B-12) 500 MCG TABLET PO SCH (09:00)
[2022-08-16] MEDS ORDERED: POTASSIUM CHLORIDE 10 MEQ TABCR PO SCH (09:00)
[2022-08-16] MEDS ORDERED: LANTUS PER UNIT CHARGE SQ SCH (09:00)
[2022-08-16] MEDS ORDERED: METOPROLOL TARTRATE 25 MG TAB PO STA (09:47)
--- NOTE | 2022-08-16 14:48 | Hospitalist Progress Note ---
Date of Service August 16, 2022 Assessment & Plan (1) COVID-19: (2) Hypoxia: (3) Paroxysmal a-fib: (4) Hypertension: (5) Dyslipidemia: (6) Tachy-aquiles syndrome: (7) CAD (coronary artery disease): (8) DM type 2 (diabetes mellitus, type 2): (9) CKD (chronic kidney disease), stage III: (10) Sleep apnea: Plan COVID-19: Hypoxia: SPO2 88% in ED; 96% on 3 LNC Incidental COVID positive in ED; vaccinated x2 against COVID; recently positive for COVID 04/2022 Decadron 6 mg in ED; continue x9 days Stress dose level 3 for blood sugars Consider remdesivir if no improvement with hypoxia Lactate 3.3; will trend Does not meet sepsis criteria without leukocytosis, tachycardia or tachypnea Procalcitonin normal at 0.40 CRP is elevated at 8.0 Blood cultures pending Has been saturating normally on room air-will not need remdesivir He has been saturating normally on room room air without any cough and/or shortness of breath Will need 7 more days of isolation on discharge We will continue dexamethasone to finish the course Elevated troponin Likely secondary to demand ischemia No ACS Paroxysmal Atrial FibrillatioN: Follows with cardiology outpatient Takes Eloquis and Amiodarone Troponin 148. BNP 948. Takes apixaban; continue Cardiac history reviewed via EMR: January 22, 2019 TTE Interpretation Summary (as per Dr. Sunshine): --The left ventricular wall motion is normal --ejection fraction is 55-59% --LV diastolic function is mildly abnormal (grade I). --Mild aortic valve regurgitation is present. December 07, 2021 TTE Interpretation Summary (as per Dr. Cantu): --EF51% (bi-plane method of discs). --Grade 3 diastolic dysfunction consistent with restrictive physiology. --Poorly visualized valvular structures with mild aortic regurgitation by Doppler. --The aortic root is mildly enlarged. Last pacer interegation was scheduled for 08/09 but he did not go due to feeling ill. -November/2021 ECHO EF 51%, grade 3 diastolic dysfunction with resistant physiology. -Appreciate cardiology input and recommendation -Carvedilol has been discontinued and started with metoprolol Hypertension: -Takes Lisinopril' hold with worsening creatinine function -Takes Carvedilol; continue -Started on metoprolol 25 mg every 6 hourly -His lisinopril and Aldactone will be on hold until further recommendation CAD: CHF: Tachybradycardia syndrome: Status post pacemaker 2013 Last pacer interegation was scheduled for 08/09 but he did not go due to feeling ill. November/2021 ECHO EF 51%, grade 3 diastolic dysfunction'repeat ECHO CXR in AM-no acute disease daily weights consider fluid restriction We will continue with his prior dose of Lasix DM2: On Jardiance and Metformin; will transition to ACHS FSBS and SSI Glucose 380 in ED 05/17: A1C 9.3; will recheck as it has been 3 months Stress dose level 3 for blood sugars Dyslipidemia: -Takes Rosuvastatin; continue CKD stage III: Creatinine 1.49; baseline 1.2-1.4 Hold nephrotoxic agents; trend LIZZIE: Does not use CPAP at home No supplemental oxygen at home VBG in the ED compensated Disposition: PCP: Dr. Garcia Code Status: Full Code VTE Prophylaxis: On apixaban Will be discharged home this afternoon Admission and Anticipated Discharge Date Admission Date: August 14, 2022 Subjective 08/15/2022 The patient was seen and examined in telemetry unit and in the COVID room He does not have any symptoms of COVID and has been saturating normally on room air He has been feeling much better with diuresis Denies any chest pain and/or palpitation Review of Systems Review of Systems: All systems reviewed and are unremarkable except as noted below Physical Exam Physical Exam: Sitting on a chair without any acute distress Constitutional: well developed, well nourished and + obese; not ill appearing Eyes: PERRL, conjunctivae normal, anicteric sclerae ENMT: external ear and nose normal, oropharynx normal Neck: trachea midline, no thyromegaly Respiratory: no respiratory distress Auscultation: + diminished lung sounds and + crackles (Minimal crackles at the bases) Cardiovascular: Rate/Rhythm: + irregularly irregular; not tachycardic Heart Sounds: normal S1 and normal S2 Extremities: + edema (1+ edema bilaterally) Gastrointestinal (Abdomen): Inspection/Auscultation: normal bowel sounds; abdomen not distended Percussion/Palpation: abdomen soft; abdomen nontender Musculoskeletal: No acute arthritis involving any joint Results & Data Results & Data ([facility]) Vital Signs (Past 12 Hours) Vital Signs Temp Pulse Resp BP Pulse Ox O2 Del Method 08/16/22 12:06 36.6 C 68 20 160/80 H 95 Room Air 08/16/22 09:16 Room Air 08/16/22 08:02 36.5 C 82 20 123/68 95 Room Air 08/16/22 04:45 36.7 C 84 19 128/92 98 Nasal Cannula Laboratory Results Short CBC 08/16/22 Range/Units 07:28 WBC 13.07 H (4.8-10.8) K/ul Hgb 17.0 (14.0-18.0) g/dl Hct 49.5 (42.0-52.0) % Plt Count 192 (130-400) K/uL BMP 08/16/22 07:28 Sodium 134 L Potassium 3.9 Chloride 98 Carbon Dioxide 29 BUN 46 H Creatinine 1.14 D Glucose 120 H Calcium 9.7 Medications Administered Current Inpatient Medications Acetaminophen (Acetaminophen 325 Mg Tab) 650 mg PO Q4H PRN PRN Reason: Pain or Fever Stop: 09/13/22 15:13 Al Hydrox/Mg Hydrox/Simethicone (Aluminum/Magnesium Susp 30 Ml Udc) 15 ml PO Q4H PRN PRN Reason: Dyspepsia Stop: 09/13/22 15:13 Apixaban (Apixaban 5 Mg Tablet) 5 mg PO BID [facility] Stop: 09/14/22 11:44 Last Admin: 08/16/22 08:29 Dose: 5 mg Aspirin (Aspirin 81 Mg Ectab) 81 mg PO DAILY [facility] Stop: 09/15/22 08:59 Last Admin: 08/16/22 08:28 Dose: 81 mg Cyanocobalamin (Cyanocobalamin (B-12) 500 Mcg Tablet) 500 mcg PO QAM [facility] Stop: 09/15/22 08:59 Last Admin: 08/16/22 08:27 Dose: 500 mcg Dextrose (Dextrose 50% 50 Ml Syringe) 25 - 50 ml IV UD PRN; Protocol PRN Reason: Hypoglycemia Protocol Stop: 09/13/22 17:15 Glucagon (Glucagon For Inj 1 Mg Vial) 1 mg SQ UD PRN; Protocol PRN Reason: Hypoglycemia Protocol Stop: 09/13/22 17:15 Glucose (Glucose 10 Tab/Tube) 4 - 8 tab PO UD PRN; Protocol PRN Reason: Hypoglycemia Treatment Stop: 09/13/22 17:15 Glucose (Glucose 40% Gel 15 Gm Tube) 15 - 30 gm PO UD PRN; Protocol PRN Reason: Hypoglycemia Protocol Stop: 09/13/22 17:15 Hydralazine HCl (Hydralazine Hcl 25 Mg Tab) 12.5 mg PO BID [facility] Stop: 09/14/22 20:59 Last Admin: 08/16/22 08:27 Dose: 12.5 mg Dexamethasone 6 mg/ Syringe 1.5 mls @ 1 mls/min IV Q24H [facility] Stop: 09/20/22 08:00 Last Admin: 08/16/22 08:29 Dose: 1 mls/min Promethazine HCl 25 mg/ Sodium (Chloride) 51 mls @ 204 mls/hr IV Q6H PRN PRN Reason: Nausea And Vomiting Stop: 09/14/22 09:00 Insulin Aspart (Insulin Aspart Per Unit) 0 units SC ACHS [facility] Stop: 09/13/22 17:44 Last Admin: 08/16/22 12:52 Dose: 5 units Insulin Glargine (Lantus Per Unit Charge) 40 units SQ QAM [facility] Stop: 09/15/22 08:59 Last Admin: 08/16/22 08:40 Dose: 40 units Lidocaine (Lidocaine 5% 1 Patch) 1 patch TD DAILY PRN PRN Reason: Pain Stop: 09/14/22 17:52 Magnesium Hydroxide (Magnesium Hydroxide Susp 30 Ml Udc) 30 ml PO Q12H PRN PRN Reason: Constipation Stop: 09/13/22 15:13 Metoprolol Tartrate (Metoprolol Tartrate 50 Mg Tab) 50 mg PO BID [facility] Stop: 09/15/22 20:59 Miscellaneous (Carbohydrates For Hypoglycemia ) 15 - 30 gm PO UD PRN PRN Reason: Hypoglycemia Protocol Stop: 09/13/22 17:15 Miscellaneous (Remove Lidoderm Patch) 1 each N/A DAILY@2100 [facility] Stop: 09/14/22 20:59 Last Admin: 08/15/22 21:31 Dose: Not Given Miscellaneous Information (Pharmacy Glycemic Mgmt Consult) 1 each N/A UD PRN PRN Reason: Consult Stop: 09/13/22 17:15 Nitroglycerin (Nitroglycerin Sl 0.4 Mg/Tab Tab) 0.4 mg SL Q5M PRN PRN Reason: Chest Pain Stop: 09/14/22 17:52 Ondansetron HCl (Ondansetron Inj 2 Mg/Ml 2 Ml Vial) 4 mg IV Q6H PRN PRN Reason: Nausea Stop: 09/13/22 15:13 Polyethylene Glycol (Polyethylene (Miralax) 17 Gm Pack) 17 gm PO DAILY PRN PRN Reason: Constipation Stop: 09/13/22 15:13 Potassium Chloride (Potassium Chloride 10 Meq Tabcr) 10 meq PO QAM [facility] Stop: 09/15/22 08:59 Last Admin: 08/16/22 08:28 Dose: 10 meq Terazosin HCl (Terazosin Hcl 5 Mg Cap) 5 mg PO HS [facility] Stop: 09/14/22 20:59 Last Admin: 08/15/22 21:30 Dose: 5 mg Zolpidem Tartrate (Zolpidem Tartrate 5 Mg Tab) 5 mg PO HS PRN PRN Reason: Sleep Stop: 09/13/22 15:13
[2022-08-16] MEDS ORDERED: METOPROLOL TARTRATE 50 MG TAB PO SCH (21:00)
--- NOTE | 2022-08-17 15:59 | Discharge Summary ---
Date of Service August 17, 2022 Admission HPI Per Admitting Provider Mr. Celaya presented to the [facility], [place] with weakness, fatigue, recent diarrhea and hypoxia. Patient reports that over the past few days he has just felt "rundown". He sleeps daily in his recliner and denies orthopnea. Patient reports that he walks with a cane and that has become more difficult for him. In ED SPO2 88% improved to 96% on 3 L NC. CXR trace pleural effusions. Slight leukocytosis WBC 10.27. Troponin 148. BNP 948. Creatinine 1.49 (1.2-1.4). Glucose 380; Insulin 5 Units. Lactate 3.3. Patient hemodynamically stable. Tested positive for COVID in ED. Patient is vaccinated x2 without boosters. Reports having COVID April 2022. Cardiac history reviewed via EMR: January 22, 2019 TTE Interpretation Summary (as per Dr. Sunshine): --The left ventricular wall motion is normal --ejection fraction is 55-59% --LV diastolic function is mildly abnormal (grade I). --Mild aortic valve regurgitation is present. December 07, 2021 TTE Interpretation Summary (as per Dr. Cantu): --EF51% (bi-plane method of discs). --Grade 3 diastolic dysfunction consistent with restrictive physiology. --Poorly visualized valvular structures with mild aortic regurgitation by Doppler. --The aortic root is mildly enlarged. Last pacer interegation was scheduled for 08/09 but he did not go due to feeling ill. November/2021 echo EF 51%, grade 3 diastolic dysfunction with resistant physiology. Additional PMH includes: paroxysmal Atrial Fibrillation (On Eloquis), LIZZIE (not on CPAP), HTN, HLD, CKD 3, NIDDM2, pacemaker insertion 06/2013 dual-chamber and diastolic CHF. He has nonobstructive CAD that was diagnosed with a left catheterization 02/2010. On exam his fluid status is acceptable however does have bilateral lower extremity +1 edema. He has a controlled ventricular response on property assessment monitor. A note to state that his amiodarone was discontinued 12/15 when there was a decision made between patient and cardiology to no longer pursue rhythm control and proceed with rate control with chronic anticoagulation therapy. Currently patient denies headache, dizziness, chest pain, shortness of breath, nausea, vomiting, visual or auditory changes, recent falls or trauma, abdominal pain, urinary changes, or new rashes. Patient will be admitted for further evaluation and management. Please see A/P for further details. Admission Exam Per Admitting Provider Physical Exam: Neuro: AAOx4, PERRLA, no aphagia, memory changes, CNII-XII grossly intact HEENT: head normocephalic, moist mucus membranes CV: Irregularly irregular , (-) M/G/R, (-) edema, cap refill < 3 seconds Resp: Lungs CTA in all melendez. On 3LNC GI: Abdomen S/NT/ND, Ax4 bowel sounds, (-) CVA tenderness Musculoskeletal: 5/5 B/L UE strength, 5/5 B/L LE strength. No gait disturbance Skin: (-) rashes , (-) erythema. Psych: euthymic mood Discharge Exam Sitting on a chair without any acute distress Constitutional well developed, well nourished and + obese; not ill appearing Eyes PERRL, conjunctivae normal, anicteric sclerae ENMT external ear and nose normal, oropharynx normal Neck trachea midline, no thyromegaly Respiratory no respiratory distress Auscultation: + diminished lung sounds and + crackles (Minimal crackles at the bases) Cardiovascular Rate/Rhythm: + irregularly irregular; not tachycardic Heart Sounds: normal S1 and normal S2 Extremities: + edema (1+ edema bilaterally) Gastrointestinal (Abdomen) Inspection/Auscultation: normal bowel sounds; abdomen not distended Percussion/Palpation: abdomen soft; abdomen nontender Discharge Data Allergies Allergy/AdvReac Type Severity Reaction Status Date / Time No Known Allergies Allergy Unverified 08/14/22 14:41 Consultations 08/14/22 14:42 ED Decision to Admit Stat 08/14/22 15:14 Consult Cardiology Routine Diabetes Follow up Diabetes Follow-up Needed for HgbA1c >9% Hospital Course (1) COVID-19: (2) Hypoxia: (3) Paroxysmal a-fib: (4) Hypertension: (5) Dyslipidemia: (6) Tachy-aquiles syndrome: (7) CAD (coronary artery disease): (8) DM type 2 (diabetes mellitus, type 2): (9) CKD (chronic kidney disease), stage III: (10) Sleep apnea: Plan COVID-19: Hypoxia: SPO2 88% in ED; 96% on 3 LNC Incidental COVID positive in ED; vaccinated x2 against COVID; recently positive for COVID 04/2022 Decadron 6 mg in ED; continue x9 days Stress dose level 3 for blood sugars Consider remdesivir if no improvement with hypoxia Lactate 3.3; will trend Does not meet sepsis criteria without leukocytosis, tachycardia or tachypnea Procalcitonin normal at 0.40 CRP is elevated at 8.0 Blood cultures pending Has been saturating normally on room air-will not need remdesivir He has been saturating normally on room room air without any cough and/or shortness of breath Will need 7 more days of isolation on discharge We will continue dexamethasone to finish the course Elevated troponin Likely secondary to demand ischemia No ACS Paroxysmal Atrial FibrillatioN: Follows with cardiology outpatient Takes Eloquis and Amiodarone Troponin 148. BNP 948. Takes apixaban; continue Cardiac history reviewed via EMR: January 22, 2019 TTE Interpretation Summary (as per Dr. Sunshine): --The left ventricular wall motion is normal --ejection fraction is 55-59% --LV diastolic function is mildly abnormal (grade I). --Mild aortic valve regurgitation is present. December 07, 2021 TTE Interpretation Summary (as per Dr. Cantu): --EF51% (bi-plane method of discs). --Grade 3 diastolic dysfunction consistent with restrictive physiology. --Poorly visualized valvular structures with mild aortic regurgitation by Doppler. --The aortic root is mildly enlarged. Last pacer interegation was scheduled for 08/09 but he did not go due to feeling ill. -November/2021 ECHO EF 51%, grade 3 diastolic dysfunction with resistant physiology. -Appreciate cardiology input and recommendation -Carvedilol has been discontinued and started with metoprolol Hypertension: -Takes Lisinopril' hold with worsening creatinine function -Takes Carvedilol; continue -Started on metoprolol 25 mg every 6 hourly -His lisinopril and Aldactone will be on hold until further recommendation CAD: CHF: Tachybradycardia syndrome: Status post pacemaker 2013 Last pacer interegation was scheduled for 08/09 but he did not go due to feeling ill. November/2021 ECHO EF 51%, grade 3 diastolic dysfunction'repeat ECHO CXR in AM-no acute disease daily weights consider fluid restriction We will continue with his prior dose of Lasix DM2: On Jardiance and Metformin; will transition to ACHS FSBS and SSI Glucose 380 in ED 05/17: A1C 9.3; will recheck as it has been 3 months Stress dose level 3 for blood sugars Dyslipidemia: -Takes Rosuvastatin; continue CKD stage III: Creatinine 1.49; baseline 1.2-1.4 Hold nephrotoxic agents; trend LIZZIE: Does not use CPAP at home No supplemental oxygen at home VBG in the ED compensated Disposition: PCP: Dr. Garcia Code Status: Full Code VTE Prophylaxis: On apixaban Will be discharged home this afternoon Discharge Plan Discharge Items Patient Disposition: Home - Self-Care Reason For Visit: SOB Discharge Diagnosis: Hypoxia-resolved, COVID-19 virus infection, paroxysmal atrial fibrillation, CAD, chronic kidney disease, sleep apnea, type 2 diabetes Physical Exam: Neuro: AAOx4, PERRLA, no aphagia, memory changes, CNII-XII grossly intact HEENT: head normocephalic, moist mucus membranes CV: Irregularly irregular , (-) M/G/R, (-) edema, cap refill < 3 seconds Resp: Lungs CTA in all melendez. On 3LNC GI: Abdomen S/NT/ND, Ax4 bowel sounds, (-) CVA tenderness Musculoskeletal: 5/5 B/L UE strength, 5/5 B/L LE strength. No gait disturbance Skin: (-) rashes , (-) erythema. Psych: euthymic mood Physical Exam: Neuro: AAOx4, PERRLA, no aphagia, memory changes, CNII-XII grossly intact HEENT: head normocephalic, moist mucus membranes CV: Irregularly irregular , (-) M/G/R, (-) edema, cap refill < 3 seconds Resp: Lungs CTA in all melenedz. On 3LNC GI: Abdomen S/NT/ND, Ax4 bowel sounds,Physical Exam: Neuro: AAOx4, PERRLA, no aphagia, memory changes, CNII-XII grossly intact HEENT: head normocephalic, moist mucus membranes CV: Irregularly irregular , (-) M/G/R, (-) edema, cap refill < 3 seconds Resp: Lungs CTA in all melendez. On 3LNC GI: Abdomen S/NT/ND, Ax4 bowel sounds, (-) CVA tenderness Musculoskeletal: 5/5 B/L UE strength, 5/5 B/L LE strength. No gait disturbanc Physical Exam: Neuro: AAOx4, PERRLA, no aphagia, memory changes, CNII-XII grossly intact HEENT: head normocephalic, moist mucus membranes CV: Irregularly irregular , (-) M/G/R, (-) edema, cap refill < 3 seconds Resp: Lungs CTA in all melendez. On 3LNC GI: Abdomen S/NT/ND, Ax4 bowel sounds, (-) CVA tenderness Musculoskeletal: 5/5 B/L UE strength, 5/5 B/L LE strength. No gait disturbance(-Physical Exam: Neuro: AAOx4, PERRLA, no aphagia, memory changes, CNII-XII grossly intact HEENT: head normocephalic, moist mucus membranes CV: Irregularly irregular , (-) M/G/R, (-) edema, cap refill < 3 seconds Resp: Lungs CTA in all melendez. On 3LNC GI: Abdomen S/NT/ND, Ax4 bowel sounds, (-) CVA tenderness Musculoskeletal: 5/5 B/L UE strength, 5/5 B/L LE strength. No gait disturbance )Physical Exam: Neuro: AAOx4, PERRLA, no aphagia, memory changes, CNII-XII grossly intact HEENT: head normocephalic, moist mucus membranes CV: Irregularly irregular , (-) M/G/R, (-) edema, cap refill < 3 seconds Resp: Lungs CTA in all melendez. On 3LNC GI: Abdomen S/NT/ND, Ax4 bowel sounds, (-) CVA tenderness Musculoskeletal: 5/5 B/L UE strength, 5/5 B/L LE strength. No gait disturbance S Physical Exam: Neuro: AAOx4, PERRLA, no aphagia, memory changes, CNII-XII grossly intact HEENT: head normocephalic, moist mucus membranes CV: Irregularly irregular , (-) M/G/R, (-) edema, cap refill < 3 seconds Resp: Lungs CTA in all melendez. On 3LNC GI: Abdomen S/NT/ND, Ax4 bowel sounds, (-) CVA tenderness Musculoskeletal: 5/5 B/L UE strength, 5/5 B/L LE strength. No gait disturbance SkCVAPhysical Exam: Neuro: AAOx4, PERRLA, no aphagia, memory changes, CNII-XII grossly intact HEENT: head normocephalic, moist mucus membranes CV: Irregularly irregular , (-) M/G/R, (-) edema, cap refill < 3 seconds Resp: Lungs CTA in all melendez. On 3LNC GI: Abdomen S/NT/ND, Ax4 bowel sounds, (-) CVA tenderness Musculoskeletal: 5/5 B/L UE strength, 5/5 B/L LE strength. No gait disturbance Ski Physical Exam: Neuro: AAOx4, PERRLA, no aphagia, memory changes, CNII-XII grossly intact HEENT: head normocephalic, moist mucus membranes CV: Irregularly irregular , (-) M/G/R, (-) edema, cap refill < 3 seconds Resp: Lungs CTA in all melendez. On 3LNC GI: Abdomen S/NT/ND, Ax4 bowel sounds, (-) CVA tenderness Musculoskeletal: 5/5 B/L UE strength, 5/5 B/L LE strength. No gait disturbance SkintendernessPhysical Exam: Neuro: AAOx4, PERRLA, no aphagia, memory changes, CNII-XII grossly intact HEENT: head normocephalic, moist mucus membranes CV: Irregularly irregular , (-) M/G/R, (-) edema, cap refill < 3 seconds Resp: Lungs CTA in all melendez. On 3LNC GI: Abdomen S/NT/ND, Ax4 bowel sounds, (-) CVA tenderness Musculoskeletal: 5/5 B/L UE strength, 5/5 B/L LE strength. No gait disturbance Skin: Physical Exam: Neuro: AAOx4, PERRLA, no aphagia, memory changes, CNII-XII grossly intact HEENT: head normocephalic, moist mucus membranes CV: Irregularly irregular , (-) M/G/R, (-) edema, cap refill < 3 seconds Resp: Lungs CTA in all melendez. On 3LNC GI: Abdomen S/NT/ND, Ax4 bowel sounds, (-) CVA tenderness Musculoskeletal: 5/5 B/L UE strength, 5/5 B/L LE strength. No gait disturbance Skin: Musculoskeletal:Physical Exam: Neuro: AAOx4, PERRLA, no aphagia, memory changes, CNII-XII grossly intact HEENT: head normocephalic, moist mucus membranes CV: Irregularly irregular , (-) M/G/R, (-) edema, cap refill < 3 seconds Resp: Lungs CTA in all melendez. On 3LNC GI: Abdomen S/NT/ND, Ax4 bowel sounds, (-) CVA tenderness Musculoskeletal: 5/5 B/L UE strength, 5/5 B/L LE strength. No gait disturbance Skin: ( Physical Exam: Neuro: AAOx4, PERRLA, no aphagia, memory changes, CNII-XII grossly intact HEENT: head normocephalic, moist mucus membranes CV: Irregularly irregular , (-) M/G/R, (-) edema, cap refill < 3 seconds Resp: Lungs CTA in all melendez. On 3LNC GI: Abdomen S/NT/ND, Ax4 bowel sounds, (-) CVA tenderness Musculoskeletal: 5/5 B/L UE strength, 5/5 B/L LE strength. No gait disturbance Skin: (-5/Physical Exam: Neuro: AAOx4, PERRLA, no aphagia, memory changes, CNII-XII grossly intact HEENT: head normocephalic, moist mucus membranes CV: Irregularly irregular , (-) M/G/R, (-) edema, cap refill < 3 seconds Resp: Lungs CTA in all melendez. On 3LNC GI: Abdomen S/NT/ND, Ax4 bowel sounds, (-) CVA tenderness Musculoskeletal: 5/5 B/L UE strength, 5/5 B/L LE strength. No gait disturbance Skin: (-)5Physical Exam: Neuro: AAOx4, PERRLA, no aphagia, memory changes, CNII-XII grossly intact HEENT: head normocephalic, moist mucus membranes CV: Irregularly irregular , (-) M/G/R, (-) edema, cap refill < 3 seconds Resp: Lungs CTA in all melendez. On 3LNC GI: Abdomen S/NT/ND, Ax4 bowel sounds, (-) CVA tenderness Musculoskeletal: 5/5 B/L UE strength, 5/5 B/L LE strength. No gait disturbance Skin: (-) Physical Exam: Neuro: AAOx4, PERRLA, no aphagia, memory changes, CNII-XII grossly intact HEENT: head normocephalic, moist mucus membranes CV: Irregularly irregular , (-) M/G/R, (-) edema, cap refill < 3 seconds Resp: Lungs CTA in all melendez. On 3LNC GI: Abdomen S/NT/ND, Ax4 bowel sounds, (-) CVA tenderness Musculoskeletal: 5/5 B/L UE strength, 5/5 B/L LE strength. No gait disturbance Skin: (-) rB/Physical Exam: Neuro: AAOx4, PERRLA, no aphagia, memory changes, CNII-XII grossly intact HEENT: head normocephalic, moist mucus membranes CV: Irregularly irregular , (-) M/G/R, (-) edema, cap refill < 3 seconds Resp: Lungs CTA in all melendez. On 3LNC GI: Abdomen S/NT/ND, Ax4 bowel sounds, (-) CVA tenderness Musculoskeletal: 5/5 B/L UE strength, 5/5 B/L LE strength. No gait disturbance Skin: (-) raLPhysical Exam: Neuro: AAOx4, PERRLA, no aphagia, memory changes, CNII-XII grossly intact HEENT: head normocephalic, moist mucus membranes CV: Irregularly irregular , (-) M/G/R, (-) edema, cap refill < 3 seconds Resp: Lungs CTA in all melendez. On 3LNC GI: Abdomen S/NT/ND, Ax4 bowel sounds, (-) CVA tenderness Musculoskeletal: 5/5 B/L UE strength, 5/5 B/L LE strength. No gait disturbance Skin: (-) ludivina Physical Exam: Neuro: AAOx4, PERRLA, no aphagia, memory changes, CNII-XII grossly intact HEENT: head normocephalic, moist mucus membranes CV: Irregularly irregular , (-) M/G/R, (-) edema, cap refill < 3 seconds Resp: Lungs CTA in all melendez. On 3LNC GI: Abdomen S/NT/ND, Ax4 bowel sounds, (-) CVA tenderness Musculoskeletal: 5/5 B/L UE strength, 5/5 B/L LE strength. No gait disturbance Skin: (-) rashUEPhysical Exam: Neuro: AAOx4, PERRLA, no aphagia, memory changes, CNII-XII grossly intact HEENT: head normocephalic, moist mucus membranes CV: Irregularly irregular , (-) M/G/R, (-) edema, cap refill < 3 seconds Resp: Lungs CTA in all melendez. On 3LNC GI: Abdomen S/NT/ND, Ax4 bowel sounds, (-) CVA tenderness Musculoskeletal: 5/5 B/L UE strength, 5/5 B/L LE strength. No gait disturbance Skin: (-) rashe Physical Exam: Neuro: AAOx4, PERRLA, no aphagia, memory changes, CNII-XII grossly intact HEENT: head normocephalic, moist mucus membranes CV: Irregularly irregular , (-) M/G/R, (-) edema, cap refill < 3 seconds Resp: Lungs CTA in all melendez. On 3LNC GI: Abdomen S/NT/ND, Ax4 bowel sounds, (-) CVA tenderness Musculoskeletal: 5/5 B/L UE strength, 5/5 B/L LE strength. No gait disturbance Skin: (-) rashesstrength,Physical Exam: Neuro: AAOx4, PERRLA, no aphagia, memory changes, CNII-XII grossly intact HEENT: head normocephalic, moist mucus membranes CV: Irregularly irregular , (-) M/G/R, (-) edema, cap refill < 3 seconds Resp: Lungs CTA in all melendez. On 3LNC GI: Abdomen S/NT/ND, Ax4 bowel sounds, (-) CVA tenderness Musculoskeletal: 5/5 B/L UE strength, 5/5 B/L LE strength. No gait disturbance Skin: (-) rashes Physical Exam: Neuro: AAOx4, PERRLA, no aphagia, memory changes, CNII-XII grossly intact HEENT: head normocephalic, moist mucus membranes CV: Irregularly irregular , (-) M/G/R, (-) edema, cap refill < 3 seconds Resp: Lungs CTA in all melendez. On 3LNC GI: Abdomen S/NT/ND, Ax4 bowel sounds, (-) CVA tenderness Musculoskeletal: 5/5 B/L UE strength, 5/5 B/L LE strength. No gait disturbance Skin: (-) rashes ,5/Physical Exam: Neuro: AAOx4, PERRLA, no aphagia, memory changes, CNII-XII grossly intact HEENT: head normocephalic, moist mucus membranes CV: Irregularly irregular , (-) M/G/R, (-) edema, cap refill < 3 seconds Resp: Lungs CTA in all melendze. On 3LNC GI: Abdomen S/NT/ND, Ax4 bowel sounds, (-) CVA tenderness Musculoskeletal: 5/5 B/L UE strength, 5/5 B/L LE strength. No gait disturbance Skin: (-) rashes , 5Physical Exam: Neuro: AAOx4, PERRLA, no aphagia, memory changes, CNII-XII grossly intact HEENT: head normocephalic, moist mucus membranes CV: Irregularly irregular , (-) M/G/R, (-) edema, cap refill < 3 seconds Resp: Lungs CTA in all melendez. On 3LNC GI: Abdomen S/NT/ND, Ax4 bowel sounds, (-) CVA tenderness Musculoskeletal: 5/5 B/L UE strength, 5/5 B/L LE strength. No gait disturbance Skin: (-) rashes , ( Physical Exam: Neuro: AAOx4, PERRLA, no aphagia, memory changes, CNII-XII grossly intact HEENT: head normocephalic, moist mucus membranes CV: Irregularly irreg ular , (-) M/G/R, (-) edema, cap refill < 3 seconds Resp: Lungs CTA in all melendez. On 3LNC GI: Abdomen S/NT/ND, Ax4 bowel sounds, (-) CVA tenderness Musculoskeletal: 5/5 B/L UE strength, 5/5 B/L LE strength. No gait disturbance Skin: (-) rashes , (-B/Physical Exam: Neuro: AAOx4, PERRLA, no aphagia, memory changes, CNII-XII grossly intact HEENT: head normocephalic, moist mucus membranes CV: Irregularly irregular , (-) M/G/R, (-) edema, cap refill < 3 seconds Resp: Lungs CTA in all melendez. On 3LNC GI: Abdomen S/NT/ND, Ax4 bowel sounds, (-) CVA tenderness Musculoskeletal: 5/5 B/L UE strength, 5/5 B/L LE strength. No gait disturbance Skin: (-) rashes , (-)LPhysical Exam: Neuro: AAOx4, PERRLA, no aphagia, memory changes, CNII-XII grossly intact HEENT: head normocephalic, moist mucus membranes CV: Irregularly irregular , (-) M/G/R, (-) edema, cap refill < 3 seconds Resp: Lungs CTA in all melendez. On 3LNC GI: Abdomen S/NT/ND, Ax4 bowel sounds, (-) CVA tenderness Musculoskeletal: 5/5 B/L UE strength, 5/5 B/L LE strength. No gait disturbance Skin: (-) rashes , (-) Physical Exam: Neuro: AAOx4, PERRLA, no aphagia, memory changes, CNII-XII grossly intact HEENT: head normocephalic, moist mucus membranes CV: Irregularly irregular , (-) M/G/R, (-) edema, cap refill < 3 seconds Resp: Lungs CTA in all melendez. On 3LNC GI: Abdomen S/NT/ND, Ax4 bowel sounds, (-) CVA tenderness Musculoskeletal: 5/5 B/L UE strength, 5/5 B/L LE strength. No gait disturbance Skin: (-) rashes , (-) eLEPhysical Exam: Neuro: AAOx4, PERRLA, no aphagia, memory changes, CNII-XII grossly intact HEENT: head normocephalic, moist mucus membranes CV: Irregularly irregular , (-) M/G/R, (-) edema, cap refill < 3 seconds Resp: Lungs CTA in all melendez. On 3LNC GI: Abdomen S/NT/ND, Ax4 bowel sounds, (-) CVA tenderness Musculoskeletal: 5/5 B/L UE strength, 5/5 B/L LE strength. No gait disturbance Skin: (-) rashes , (-) er Physical Exam: Neuro: AAOx4, PERRLA, no aphagia, memory changes, CNII-XII grossly intact HEENT: head normocephalic, moist mucus membranes CV: Irregularly irregular , (-) M/G/R, (-) edema, cap refill < 3 seconds Resp: Lungs CTA in all melendez. On 3LNC GI: Abdomen S/NT/ND, Ax4 bowel sounds, (-) CVA tenderness Musculoskeletal: 5/5 B/L UE strength, 5/5 B/L LE strength. No gait disturbance Skin: (-) rashes , (-) erystrength.Physical Exam: Neuro: AAOx4, PERRLA, no aphagia, memory change s, CNII-XII grossly intact HEENT: head normocephalic, moist mucus membranes CV: Irregularly irregular , (-) M/G/R, (-) edema, cap refill < 3 seconds Resp: Lungs CTA in all melendez. On 3LNC GI: Abdomen S/NT/ND, Ax4 bowel sounds, (-) CVA tenderness Musculoskeletal: 5/5 B/L UE strength, 5/5 B/L LE strength. No gait disturbance Skin: (-) rashes , (-) eryt Physical Exam: Neuro: AAOx4, PERRLA, no aphagia, memory changes, CNII-XII grossly intact HEENT: head normocephalic, moist mucus membranes CV: Irregularly irregular , (-) M/G/R, (-) edema, cap refill < 3 seconds Resp: Lungs CTA in all melendez. On 3LNC GI: Abdomen S/NT/ND, Ax4 bowel sounds, (-) CVA tenderness Musculoskeletal: 5/5 B/L UE strength, 5/5 B/L LE strength. No gait disturbance Skin: (-) rashes , (-) erythNoPhysical Exam: Neuro: AAOx4, PERRLA, no aphagia, memory changes, CNII-XII grossly intact HEENT: head normocephalic, moist mucus membranes CV: Irregularly irregular , (-) M/G/R, (-) edema, cap refill < 3 seconds Resp: Lungs CTA in all melendez. On 3LNC GI: Abdomen S/NT/ND, Ax4 bowel sounds, (-) CVA tenderness Musculoskeletal: 5/5 B/L UE strength, 5/5 B/L LE strength. No gait disturbance Skin: (-) rashes , (-) erythe Physical Exam: Neuro: AAOx4, PERRLA, no aphagia, memory changes, CNII-XII grossly intact HEENT: head normocephalic, moist mucus membranes CV: Irregularly irregular , (-) M/G/R, (-) edema, cap refill < 3 seconds Resp: Lungs CTA in all melendez. On 3LNC GI: Abdomen S/NT/ND, Ax4 bowel sounds, (-) CVA tenderness Musculoskeletal: 5/5 B/L UE strength, 5/5 B/L LE strength. No gait disturbance Skin: (-) rashes , (-) erythemgaitPhysical Exam: Neuro: AAOx4, PERRLA, no aphagia, memory changes, CNII-XII grossly intact HEENT: head normocephalic, moist mucus membranes CV: Irregularly irregular , (-) M/G/R, (-) edema, cap refill < 3 seconds Resp: Lungs CTA in all melendez. On 3LNC GI: Abdomen S/NT/ND, Ax4 bowel sounds, (-) CVA tenderness Musculoskeletal: 5/5 B/L UE strength, 5/5 B/L LE strength. No gait disturbance Skin: (-) rashes , (-) erythema Physical Exam: Neuro: AAOx4, PERRLA, no aphagia, memory changes, CNII-XII grossly intact HEENT: head normocephalic, moist mucus membranes CV: Irregularly irregular , (-) M/G/R, (-) edema, cap refill < 3 seconds Resp: Lungs CTA in all melendez. On 3LNC GI: Abdomen S/NT/ND, Ax4 bowel sounds, (-) CVA tenderness Musculoskeletal: 5/5 B/L UE strength, 5/5 B/L LE strength. No gait disturbance Skin: (-) rashes , (-) erythema.disturbancePhysical Exam: Neuro: AAOx4, PERRLA, no aphagia, memory changes, CNII-XII grossly intact HEENT: head normocephalic, moist mucus membranes CV: Irregularly irregular , (-) M/G/R, (-) edema, cap refill < 3 seconds Resp: Lungs CTA in all melendez. On 3LNC GI: Abdomen S/NT/ND, Ax4 bowel sounds, (-) CVA tenderness Musculoskeletal: 5/5 B/L UE strength, 5/5 B/L LE strength. No gait disturbance Skin: (-) rashes , (-) erythema. Physical Exam: Neuro: AAOx4, PERRLA, no aphagia, memory changes, CNII-XII grossly intact HEENT: head normocephalic, moist mucus membranes CV: Irregularly irregular , (-) M/G/R, (-) edema, cap refill < 3 seconds Resp: Lungs CTA in all melendez. On 3LNC GI: Abdomen S/NT/ND, Ax4 bowel sounds, (-) CVA tenderness Musculoskeletal: 5/5 B/L UE strength, 5/5 B/L LE strength. No gait disturbance Skin: (-) rashes , (-) erythema. PSkin:Physical Exam: Neuro: AAOx4, PERRLA, no aphagia, memory changes, CNII-XII grossly intact HEENT: head normocephalic, moist mucus membranes CV: Irregularly irregular , (-) M/G/R, (-) edema, cap refill < 3 seconds Resp: Lungs CTA in all melendez. On 3LNC GI: Abdomen S/NT/ND, Ax4 bowel sounds, (-) CVA tenderness Musculoskeletal: 5/5 B/L UE strength, 5/5 B/L LE strength. No gait disturbance Skin: (-) rashes , (-) erythema. Ps Physical Exam: Neuro: AAOx4, PERRLA, no aphagia, memory changes, CNII-XII grossly intact HEENT: head normocephalic, moist mucus membranes CV: Irregularly irregular , (-) M/G/R, (-) edema, cap refill < 3 seconds Resp: Lungs CTA in all melendez. On 3LNC GI: Abdomen S/NT/ND, Ax4 bowel sounds, (-) CVA tenderness Musculoskeletal: 5/5 B/L UE strength, 5/5 B/L LE strength. No gait disturbance Skin: (-) rashes , (-) erythema. Psy(-Physical Exam: Neuro: AAOx4, PERRLA, no aphagia, memory changes, CNII-XII grossly intact HEENT: head normocephalic, moist mucus membranes CV: Irregularly irregular , (-) M/G/R, (-) edema, cap refill < 3 seconds Resp: Lungs CTA in all melendez. On 3LNC GI: Abdomen S/NT/ND, Ax4 bowel sounds, (-) CVA tenderness Musculoskeletal: 5/5 B/L UE strength, 5/5 B/L LE strength. No gait disturbance Skin: (-) rashes , (-) erythema. Psyc)Physical Exam: Neuro: AAOx4, PERRLA, no aphagia, memory changes, CNII-XII grossly intact HEENT: head normocephalic, moist mucus membranes CV: Irregularly irregular , (-) M/G/R, (-) edema, cap refill < 3 seconds Resp: Lungs CTA in all melendez. On 3LNC GI: Abdomen S/NT/ND, Ax4 bowel sounds, (-) CVA tenderness Musculoskeletal: 5/5 B/L UE strength, 5/5 B/L LE strength. No gait disturbance Skin: (-) rashes , (-) erythema. Psych Physical Exam: Neuro: AAOx4, PERRLA, no aphagia, memory changes, CNII-XII grossly intact HEENT: head normocephalic, moist mucus membranes CV: Irregularly irregular , (-) M/G/R, (-) edema, cap refill < 3 seconds Resp: Lungs CTA in all melendez. On 3LNC GI: Abdomen S/NT/ND, Ax4 bowel sounds, (-) CVA tenderness Musculoskeletal: 5/5 B/L UE strength, 5/5 B/L LE strength. No gait disturbance Skin: (-) rashes , (-) erythema. Psych:rashesPhysical Exam: Neuro: AAOx4, PERRLA, no aphagia, memory changes, CNII-XII grossly intact HEENT: head normocephalic, moist mucus membranes CV: Irregularly irregular , (-) M/G/R, (-) edema, cap refill < 3 seconds Resp: Lungs CTA in all melendez. On 3LNC GI: Abdomen S/NT/ND, Ax4 bowel sounds, (-) CVA tenderness Musculoskeletal: 5/5 B/L UE strength, 5/5 B/L LE strength. No gait disturbance Skin: (-) rashes , (-) erythema. Psych: Physical Exam: Neuro: AAOx4, PERRLA, no aphagia, memory changes, CNII-XII grossly intact HEENT: head normocephalic, moist mucus membranes CV: Irregularly irregular , (-) M/G/R, (-) edema, cap refill < 3 seconds Resp: Lungs CTA in all melendez. On 3LNC GI: Abdomen S/NT/ND, Ax4 bowel sounds, (-) CVA tenderness Musculoskeletal: 5/5 B/L UE strength, 5/5 B/L LE strength. No gait disturbance Skin: (-) rashes , (-) erythema. Psych: e,Physical Exam: Neuro: AAOx4, PERRLA, no aphagia, memory changes, CNII-XII grossly intact HEENT: head normocephalic, moist mucus membranes CV: Irregularly irregular , (-) M/G/R, (-) edema, cap refill < 3 seconds Resp: Lungs CTA in all melendez. On 3LNC GI: Abdomen S/NT/ND, Ax4 bowel sounds, (-) CVA tenderness Musculoskeletal: 5/5 B/L UE strength, 5/5 B/L LE strength. No gait disturbance Skin: (-) rashes , (-) erythema. Psych: eu Physical Exam: Neuro: AAOx4, PERRLA, no aphagia, memory changes, CNII-XII grossly intact HEENT: head normocephalic, moist mucus membranes CV: Irregularly irregular , (-) M/G/R, (-) edema, cap refill < 3 seconds Resp: Lungs CTA in all melendez. On 3LNC GI: Abdomen S/NT/ND, Ax4 bowel sounds, (-) CVA tenderness Musculoskeletal: 5/5 B/L UE strength, 5/5 B/L LE strength. No gait disturbance Skin: (-) rashes , (-) erythema. Psych: eut(- Physical Exam: Neuro: AAOx4, PERRLA, no aphagia, memory changes, CNII-XII grossly intact HEENT: head normocephalic, moist mucus membranes CV: Irregularly irregular , (-) M/G/R, (-) edema, cap refill < 3 seconds Resp: Lungs CTA in all melendez. On 3LNC GI: Abdomen S/NT/ND, Ax4 bowel sounds, (-) CVA tenderness Musculoskeletal: 5/5 B/L UE strength, 5/5 B/L LE strength. No gait disturbance Skin: (-) rashes , (-) erythema. Psych: euth)Physical Exam: Neuro: AAOx4, PERRLA, no aphagia, memory changes, CNII-XII grossly intact HEENT: head normocephalic, moist mucus membranes CV: Irregularly irregular , (-) M/G/R, (-) edema, cap refill < 3 seconds Resp: Lungs CTA in all melendez. On 3LNC GI: Abdomen S/NT/ND, Ax4 bowel sounds, (-) CVA tenderness Musculoskeletal: 5/5 B/L UE strength, 5/5 B/L LE strength. No gait disturbance Skin: (-) rashes , (-) erythema. Psych: euthy Physical Exam: Neuro: AAOx4, PERRLA, no aphagia, memory changes, CNII-XII grossly intact HEENT: head normocephalic, moist mucus membranes CV: Irregularly irregular , (-) M/G/R, (-) edema, cap refill < 3 seconds Resp: Lungs CTA in all melendez. On 3LNC GI: Abdomen S/NT/ND, Ax4 bowel sounds, (-) CVA tenderness Musculoskeletal: 5/5 B/L UE strength, 5/5 B/L LE strength. No gait disturbance Skin: (-) rashes , (-) erythema. Psych: euthymerythema.Physical Exam: Neuro: AAOx4, PERRLA, no aphagia, memory changes, CNII-XII grossly intact HEENT: head normocephalic, moist mucus membranes CV: Irregularly irregular , (-) M/G/R, (-) edema, cap refill < 3 seconds Resp: Lungs CTA in all melendez. On 3LNC GI: Abdomen S/NT/ND, Ax4 bowel sounds, (-) CVA tenderness Musculoskeletal: 5/5 B/L UE strength, 5/5 B/L LE strength. No gait disturbance Skin: (-) rashes , (-) erythema. Psych: euthymi Physical Exam: Neuro: AAOx4, PERRLA, no aphagia, memory changes, CNII-XII grossly intact HEENT: head normocephalic, moist mucus membranes CV: Irregularly irregular , (-) M/G/R, (-) edema, cap refill < 3 seconds Resp: Lungs CTA in all melendez. On 3LNC GI: Abdomen S/NT/ND, Ax4 bowel sounds, (-) CVA tenderness Musculoskeletal: 5/5 B/L UE strength, 5/5 B/L LE strength. No gait disturbance Skin: (-) rashes , (-) erythema. Psych: euthymicPsych:Physical Exam: Neuro: AAOx4, PERRLA, no aphagia, memory changes, CNII-XII grossly intact HEENT: head normocephalic, moist mucus membranes CV: Irregularly irregular , (-) M/G/R, (-) edema, cap refill < 3 seconds Resp: Lungs CTA in all melendez. On 3LNC GI: Abdomen S/NT/ND, Ax4 bowel sounds, (-) CVA tenderness Musculoskeletal: 5/5 B/L UE strength, 5/5 B/L LE strength. No gait disturbance Skin: (-) rashes , (-) erythema. Psych: euthymic Physical Exam: Neuro: AAOx4, PERRLA, no aphagia, memory changes, CNII-XII grossly intact HEENT: head normocephalic, moist mucus membranes CV: Irregularly irregular , (-) M/G/R, (-) edema, cap refill < 3 seconds Resp: Lungs CTA in all melendez. On 3LNC GI: Abdomen S/NT/ND, Ax4 bowel sounds, (-) CVA tenderness Musculoskeletal: 5/5 B/L UE strength, 5/5 B/L LE strength. No gait disturbance Skin: (-) rashes , (-) erythema. Psych: euthymic meuthymicPhysical Exam: Neuro: AAOx4, PERRLA, no aphagia, memory changes, CNII-XII grossly intact HEENT: head normocephalic, moist mucus membranes CV: Irregularly irregular , (-) M/G/R, (-) edema, cap refill < 3 seconds Resp: Lungs CTA in all melendez. On 3LNC GI: Abdomen S/NT/ND, Ax4 bowel sounds, (-) CVA tenderness Musculoskeletal: 5/5 B/L UE strength, 5/5 B/L LE strength. No gait disturbance Skin: (-) rashes , (-) erythema. Psych: euthymic mo Physical Exam: Neuro: AAOx4, PERRLA, no aphagia, memory changes, CNII-XII grossly intact HEENT: head normocephalic, moist mucus membranes CV: Irregularly irregular , (-) M/G/R, (-) edema, cap refill < 3 seconds Resp: Lungs CTA in all melendez. On 3LNC GI: Abdomen S/NT/ND, Ax4 bowel sounds, (-) CVA tenderness Musculoskeletal: 5/5 B/L UE strength, 5/5 B/L LE strength. No gait disturbance Skin: (-) rashes , (-) erythema. Psych: euthymic moomoodPhysical Exam: Neuro: AAOx4, PERRLA, no aphagia, memory changes, CNII-XII grossly intact HEENT: head normocephalic, moist mucus membranes CV: Irregularly irregular , (-) M/G/R, (-) edema, cap refill < 3 seconds Resp: Lungs CTA in all melendez. On 3LNC GI: Abdomen S/NT/ND, Ax4 bowel sounds, (-) CVA tenderness Musculoskeletal: 5/5 B/L UE strength, 5/5 B/L LE strength. No gait disturbance Skin: (-) rashes , (-) erythema. Psych: euthymic mood Condition on Discharge: Good Activity: Resume your previous activity Non-emergency contact: Primary Care Provider Call non-emergency contact if: you have any medication questions and your symptoms worsen Follow-up/Referrals: Cyndi Rich MD [Outside Practitioners] - (Date & Time 08/24/2022 10:20 AM Provider Cyndi Lopez MD Department Family [facility] [place], [place] ) Diet: Carb Consistent or DM2 and Heart Healthy Addtl Attending Provider Instructions: Please take precautions to avoid fall Take your medications as advised Your carvedilol has been changed to metoprolol Your lisinopril and Aldactone are on hold Check your BMP in 1 week and the blood pressure in 1 week during your next visit to the PCP, decided to add more medicine to control blood pressure as per your PCP Please give appointment with your healthcare providers You need to be in quarantine for COVID-19 virus infection for 7 more days 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 You should restrict activities outside your home, except for getting me dical care. Do not go to work, school, or public areas. Avoid using public transportation, ride-sharing, or taxis. Separate yourself from other people and animals in your home People: As much as possible, you should stay in a specific room and away from other people in your home. Also, you should use a separate bathroom, if available. Animals: You should restrict contact with pets and other animals while you are sick with COVID-19, just like you would around other people. Although there have not been reports of pets or other animals becoming sick with COVID-19, it is still recommended that people sick with COVID-19 limit contact with animals until more information is known about the virus. When possible, have another member of your household care for your animals while you are sick. If you are sick with COVID-19, avoid contact with your pet, including petting, snuggling, being kissed or licked, and sharing food. If you must care for your pet or be around animals while you are sick, wash your hands before and after you interact with pets and wear a face mask. Call ahead before visiting your doctor If you have a medical appointment, call the healthcare provider and tell them that you have or may have COVID-19. This will help the healthcare providers office take steps to keep other people from getting infected or exposed. Wear a face mask You should wear a face mask when you are around other people (e.g., sharing a room or vehicle) or pets and before you enter a healthcare providers office. If you are not able to wear a face mask (for example, because it causes trouble breathing), then people who live with you should not stay in the same room with you, or they should wear a face mask if they enter your room. Cover your coughs and sneezes Cover your mouth and nose with a tissue when you cough or sneeze. Throw used tissues in a lined trash can. Immediately wash your hands with soap and water for at least 20 seconds or, if soap and water are not available, clean your hands with an alcohol-based hand [employer] specialist that contains at least 60% alcohol. Clean your hands often Wash your hands often with soap and water for at least 20 seconds, especially after blowing your nose, coughing, or sneezing; going to the bathroom; and before eating or preparing food. If soap and water are not readily available, use an alcohol-based hand [employer] specialist with at least 60% alcohol, covering all surfaces of your hands and rubbing them together until they feel dry. Soap and water are the best option if hands are visibly dirty. Avoid touching your eyes, nose, and mouth with unwashed hands. Avoid sharing personal household items You should not share dishes, drinking glasses, cups, eating utensils, towels, or bedding with other people or pets in your home. After using these items, they should be washed thoroughly with soap and water. Clean all high-touch surfaces everyday High touch surfaces include counters, tabletops, doorknobs, bathroom fixtures, toilets, phones, keyboards, tablets, and bedside tables. Also, clean any surfaces that may have blood, stool, or body fluids on them. Use a household cleaning spray or wipe, according to the label instructions. Labels contain instructions for safe and effective use of the cleaning product including precautions you should take when applying the product, such as wearing gloves and making sure you have good ventilation during use of the product. Monitor your symptoms Seek prompt medical attention if your illness is worsening (e.g., difficulty breathing).Beforeseeking care, call your healthcare provider and tell them that you have, or are being evaluated for, COVID-19. Put on a face mask before you enter the facility. These steps will help the healthcare providers office to keep other people in the office or waiting room from getting infected or exposed. Ask your healthcare provider to call the local or state health department. Persons who are placed under active monitoring or facilitated self- monitoring should follow instructions provided by their local health department or occupational health professionals, as appropriate. When working with your local health department check their available hours. If you have a medical emergency and need to call 911, notify the dispatch personnel that you have, or are being evaluated for COVID-19. If possible, put on a face mask before emergency medical services arrive. Discontinuing home isolation Patients with confirmed COVID-19 should remain under home isolation precautions until the risk of secondary transmission to others is thought to be low. The decision to discontinue home isolation precautions should be made on a [id number] basis, in consultation with healthcare providers and [facility] and [facility] health departments. Pending Studies at Discharge: No Stand-Alone Forms: [facility] [employer], Smoking Cessation Medications and DC Order Prescriptions: New metoprolol tartrate 50 mg Tablet 50 mg PO BID 30 Days Qty: 60 0RF dexamethasone 6 mg tablet 6 mg PO DAILY Qty: 7 0RF Continued potassium chloride 10 mEq Tablet Extended Release 10 meq PO QAM Qty: 0 aspirin 81 mg Tablet,Delayed Release (Dr/Ec) 81 mg PO DAILY Qty: 0 nitroglycerin [Nitrostat] 0.4 mg Tablet, Sublingual 0.4 mg sublingual Q5M PRN (Reason: Chest Pain) Qty: 0 Patient Comments: Place 0.4 mg under tongue every 5 minutes as needed for chest pain. Up to 3 doses in 15 minutes. Rx Instructions: 1 t under the tongue q 5 minutes x 3 doses in 15 minutes if no relief call 911 metformin 500 mg Tablet Extended Release 24 Hr 2,000 mg PO QAM Qty: 0 rosuvastatin 10 mg Tablet 10 mg PO QAM Qty: 0 terazosin 5 mg Capsule 5 mg PO HS Qty: 0 apixaban 5 mg Tablet 5 mg PO BID Qty: 0 acetaminophen 500 mg Tablet 500 mg PO Q8H PRN (Reason: Pain) Qty: 0 lidocaine 5 % Adhesive Patch,Medicated 1 patch TOPICAL DAILY PRN (Reason: Pain) Qty: 0 Patient Comments: MAY APPLY UPTO THREE PATCHES IN 24 HOURS, REMOVE AFTER 12 HOURS Rx Instructions: leave on most painful area for up to 12 hrs Remove at night hydralazine 25 mg Tablet 12.5 mg PO BID cyanocobalamin (vitamin B-12) 500 mcg Tablet 500 mcg PO QAM Jardiance 25 mg tablet 25 mg PO QAM Changed furosemide 40 mg Tablet 40 mg PO QAM Qty: 30 0RF Discontinued carvedilol 25 mg Tablet 37.5 mg PO BID Qty: 0 Rx Instructions: must administer with a meal/food lisinopril 20 mg Tablet 20 mg PO BID Qty: 0 spironolactone 25 mg Tablet 25 mg PO QAM Qty: 0 Discharge Orders: Discharge Order (Routine); Ordered 08/16/22 Ordered By: Abiodun Aguila Admission Data Admit Date/Time: 08/14/22 15:14 Attending Provider: Abiodun Aguila Admit Provider: Abiodun Aguila Primary Care Provider: Crow Garcia Other Providers: Abiodun Aguila ; Buck Cantu Other Interventions: Discharge Summary Assessment (RN) Last Done: 08/16/22 15:47
--- NOTE | 2022-08-17 16:10 | Discharge Summary ---
Date of Service August 16, 2022 Admission HPI Per Admitting Provider Chief Complaint: SOB Primary Care Provider: Crow Garcia DO Mr. Celaya presented to the [facility] with weakness, fatigue, recent diarrhea and hypoxia. Patient reports that over the past few days he has just felt "rundown". He sleeps daily in his recliner and denies orthopnea. Patient reports that he walks with a cane and that has become more difficult for him. In ED SPO2 88% improved to 96% on 3 L NC. CXR trace pleural effusions. Slight leukocytosis WBC 10.27. Troponin 148. BNP 948. Creatinine 1.49 (1.2-1.4). Glucose 380; Insulin 5 Units. Lactate 3.3. Patient hemodynamically stable. Tested positive for COVID in ED. Patient is vaccinated x2 without boosters. Reports having COVID April 2022. Cardiac history reviewed via EMR: January 22, 2019 TTE Interpretation Summary (as per Dr. Sunshine): --The left ventricular wall motion is normal --ejection fraction is 55-59% --LV diastolic function is mildly abnormal (grade I). --Mild aortic valve regurgitation is present. December 07, 2021 TTE Interpretation Summary (as per Dr. Cantu): --EF51% (bi-plane method of discs). --Grade 3 diastolic dysfunction consistent with restrictive physiology. --Poorly visualized valvular structures with mild aortic regurgitation by Doppler. --The aortic root is mildly enlarged. Last pacer interegation was scheduled for 08/09 but he did not go due to feeling ill. November/2021 echo EF 51%, grade 3 diastolic dysfunction with resistant physiology. Additional PMH includes: paroxysmal Atrial Fibrillation (On Eloquis), LIZZIE (not on CPAP), HTN, HLD, CKD 3, NIDDM2, pacemaker insertion 06/2013 dual-chamber and diastolic CHF. He has nonobstructive CAD that was diagnosed with a left catheterization 02/2010. On exam his fluid status is acceptable however does have bilateral lower extremity +1 edema. 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 A note to state that his amiodarone was discontinued 12/15 when there was a decision made between patient and cardiology to no longer pursue rhythm control and proceed with rate control with chronic anticoagulation therapy. Currently patient denies headache, dizziness, chest pain, shortness of breath, nausea, vomiting, visual or auditory changes, recent falls or trauma, abdominal pain, urinary changes, or new rashes. Patient will be admitted for further evaluation and management. Please see A/P for further details. Admission Exam Per Admitting Provider Physical Exam: Neuro: AAOx4, PERRLA, no aphagia, memory changes, CNII-XII grossly intact HEENT: head normocephalic, moist mucus membranes CV: Irregularly irregular , (-) M/G/R, (-) edema, cap refill < 3 seconds Resp: Lungs CTA in all melendez. On 3LNC GI: Abdomen S/NT/ND, Ax4 bowel sounds, (-) CVA tenderness Musculoskeletal: 5/5 B/L UE strength, 5/5 B/L LE strength. No gait disturbance Skin: (-) rashes , (-) erythema. Psych: euthymic mood Principal Diagnosis Hypoxiaresolved, COVID-19 virus infection, paroxysmal atrial fibrillation, CAD, chronic kidney disease, sleep apnea, type 2 diabetes Discharge Exam Constitutional well developed, well nourished and + obese; not ill appearing Eyes PERRL, conjunctivae normal, anicteric sclerae ENMT external ear and nose normal, oropharynx normal Neck trachea midline, no thyromegaly Respiratory no respiratory distress Auscultation: + diminished lung sounds and + crackles (Minimal crackles at the bases) Cardiovascular Rate/Rhythm: + irregularly irregular; not tachycardic Heart Sounds: normal S1 and normal S2 Extremities: + edema (1+ edema bilaterally) Gastrointestinal (Abdomen) Inspection/Auscultation: normal bowel sounds; abdomen not distended Percussion/Palpation: abdomen soft; abdomen nontender Discharge Data Allergies Allergy/AdvReac Type Severity Reaction Status Date / Time No Known Allergies Allergy Unverified 08/14/22 14:41 Consultations 08/14/22 14:42 ED Decision to Admit Stat 08/14/22 15:14 Consult Cardiology Routine Diabetes Follow up Diabetes Follow-up Needed for HgbA1c >9% Hospital Course (1) COVID-19: (2) Hypoxia: (3) Paroxysmal a-fib: (4) Hypertension: (5) Dyslipidemia: (6) Tachy-aquiles syndrome: (7) CAD (coronary artery disease): (8) DM type 2 (diabetes mellitus, type 2): (9) CKD (chronic kidney disease), stage III: (10) Sleep apnea: Plan COVID-19: Hypoxia: SPO2 88% in ED; 96% on 3 LNC Incidental COVID positive in ED; vaccinated x2 against COVID; recently positive for COVID 04/2022 Decadron 6 mg in ED; continue x9 days Stress dose level 3 for blood sugars Consider remdesivir if no improvement with hypoxia Lactate 3.3; will trend Does not meet sepsis criteria without leukocytosis, tachycardia or tachypnea Procalcitonin normal at 0.40 CRP is elevated at 8.0 Blood cultures pending Has been saturating normally on room air-will not need remdesivir He has been saturating normally on room room air without any cough and/or shortness of breath Will need 7 more days of isolation on discharge We will continue dexamethasone to finish the course Elevated troponin Likely secondary to demand ischemia No ACS Paroxysmal Atrial FibrillatioN: Follows with cardiology outpatient Takes Eloquis and Amiodarone Troponin 148. BNP 948. Takes apixaban; continue Cardiac history reviewed via EMR: January 22, 2019 TTE Interpretation Summary (as per Dr. Sunshine): --The left ventricular wall motion is normal --ejection fraction is 55-59% --LV diastolic function is mildly abnormal (grade I). --Mild aortic valve regurgitation is present. December 07, 2021 TTE Interpretation Summary (as per Dr. Cantu): --EF51% (bi-plane method of discs). --Grade 3 diastolic dysfunction consistent with restrictive physiology. --Poorly visualized valvular structures with mild aortic regurgitation by Doppler. --The aortic root is mildly enlarged. Last pacer interegation was scheduled for 08/09 but he did not go due to feeling ill. -November/2021 ECHO EF 51%, grade 3 diastolic dysfunction with resistant physiology. -Appreciate cardiology input and recommendation -Carvedilol has been discontinued and started with metoprolol Hypertension: -Takes Lisinopril' hold with worsening creatinine function -Takes Carvedilol; continue -Started on metoprolol 25 mg every 6 hourly -His lisinopril and Aldactone will be on hold until further recommendation CAD: CHF: Tachybradycardia syndrome: Status post pacemaker 2013 Last pacer interegation was scheduled for 08/09 but he did not go due to feeling ill. November/2021 ECHO EF 51%, grade 3 diastolic dysfunction'repeat ECHO CXR in AM-no acute disease daily weights consider fluid restriction We will continue with his prior dose of Lasix DM2: On Jardiance and Metformin; will transition to ACHS FSBS and SSI Glucose 380 in ED 05/17: A1C 9.3; will recheck as it has been 3 months Stress dose level 3 for blood sugars Dyslipidemia: -Takes Rosuvastatin; continue CKD stage III: Creatinine 1.49; baseline 1.2-1.4 Hold nephrotoxic agents; trend LIZZIE: Does not use CPAP at home No supplemental oxygen at home VBG in the ED compensated Disposition: PCP: Dr. Garcia Code Status: Full Code VTE Prophylaxis: On apixaban Will be discharged home this afternoon Total Time Total Time Spent Total Time Spent (In Minutes): 35 minutes Discharge Plan Discharge Items Patient Disposition: Home - Self-Care Reason For Visit: SOB Discharge Diagnosis: Hypoxia-resolved, COVID-19 virus infection, paroxysmal atrial fibrillation, CAD, chronic kidney disease, sleep apnea, type 2 diabetes Physical Exam: Neuro: AAOx4, PERRLA, no aphagia, memory changes, CNII-XII grossly intact HEENT: head normocephalic, moist mucus membranes CV: Irregularly irregular , (-) M/G/R, (-) edema, cap refill < 3 seconds Resp: Lungs CTA in all melendez. On 3LNC GI: Abdomen S/NT/ND, Ax4 bowel sounds, (-) CVA tenderness Musculoskeletal: 5/5 B/L UE strength, 5/5 B/L LE strength. No gait disturbance Skin: (-) rashes , (-) erythema. Psych: euthymic mood Physical Exam: Neuro: AAOx4, PERRLA, no aphagia, memory changes, CNII-XII grossly intact HEENT: head normocephalic, moist mucus membranes CV: Irregularly irregular , (-) M/G/R, (-) edema, cap refill < 3 seconds Resp: Lungs CTA in all melendez. On 3LNC GI: Abdomen S/NT/ND, Ax4 bowel sounds,Physical Exam: Neuro: AAOx4, PERRLA, no aphagia, memory changes, CNII-XII grossly intact HEENT: head normocephalic, moist mucus membranes CV: Irregularly irregular , (-) M/G/R, (-) edema, cap refill < 3 seconds Resp: Lungs CTA in all melendez. On 3LNC GI: Abdomen S/NT/ND, Ax4 bowel sounds, (-) CVA tenderness Musculoskeletal: 5/5 B/L UE strength, 5/5 B/L LE strength. No gait disturbanc Physical Exam: Neuro: AAOx4, PERRLA, no aphagia, memory changes, CNII-XII grossly intact HEENT: head normocephalic, moist mucus membranes CV: Irregularly irregular , (-) M/G/R, (-) edema, cap refill < 3 seconds Resp: Lungs CTA in all melendez. On 3LNC GI: Abdomen S/NT/ND, Ax4 bowel sounds, (-) CVA tenderness Musculoskeletal: 5/5 B/L UE strength, 5/5 B/L LE strength. No gait disturbance(-Physical Exam: Neuro: AAOx4, PERRLA, no aphagia, memory changes, CNII-XII grossly intact HEENT: head normocephalic, moist mucus membranes CV: Irregularly irregular , (-) M/G/R, (-) edema, cap refill < 3 seconds Resp: Lungs CTA in all melendez. On 3LNC GI: Abdomen S/NT/ND, Ax4 bowel sounds, (-) CVA tenderness Musculoskeletal: 5/5 B/L UE strength, 5/5 B/L LE strength. No gait disturbance )Physical Exam: Neuro: AAOx4, PERRLA, no aphagia, memory changes, CNII-XII grossly intact HEENT: head normocephalic, moist mucus membranes CV: Irregularly irregular , (-) M/G/R, (-) edema, cap refill < 3 seconds Resp: Lungs CTA in all melendez. On 3LNC GI: Abdomen S/NT/ND, Ax4 bowel sounds, (-) CVA tenderness Musculoskeletal: 5/5 B/L UE strength, 5/5 B/L LE strength. No gait disturbance S Physical Exam: Neuro: AAOx4, PERRLA, no aphagia, memory changes, CNII-XII grossly intact HEENT: head normocephalic, moist mucus membranes CV: Irregularly irregular , (-) M/G/R, (-) edema, cap refill < 3 seconds Resp: Lungs CTA in all melendez. On 3LNC GI: Abdomen S/NT/ND, Ax4 bowel sounds, (-) CVA tenderness Musculoskeletal: 5/5 B/L UE strength, 5/5 B/L LE strength. No gait disturbance SkCVAPhysical Exam: Neuro: AAOx4, PERRLA, no aphagia, memory changes, CNII-XII grossly intact HEENT: head normocephalic, moist mucus membranes CV: Irregularly irregular , (-) M/G/R, (-) edema, cap refill < 3 seconds Resp: Lungs CTA in all melendez. On 3LNC GI: Abdomen S/NT/ND, Ax4 bowel sounds, (-) CVA tenderness Musculoskeletal: 5/5 B/L UE strength, 5/5 B/L LE strength. No gait disturbance Ski Physical Exam: Neuro: AAOx4, PERRLA, no aphagia, memory changes, CNII-XII grossly intact HEENT: head normocephalic, moist mucus membranes CV: Irregularly irregular , (-) M/G/R, (-) edema, cap refill < 3 seconds Resp: Lungs CTA in all melendez. On 3LNC GI: Abdomen S/NT/ND, Ax4 bowel sounds, (-) CVA tenderness Musculoskeletal: 5/5 B/L UE strength, 5/5 B/L LE strength. No gait disturbance SkintendernessPhysical Exam: Neuro: AAOx4, PERRLA, no aphagia, memory changes, CNII-XII grossly intact HEENT: head normocephalic, moist mucus membranes CV: Irregularly irregular , (-) M/G/R, (-) edema, cap refill < 3 seconds Resp: Lungs CTA in all melendez. On 3LNC GI: Abdomen S/NT/ND, Ax4 bowel sounds, (-) CVA tenderness Musculoskeletal: 5/5 B/L UE strength, 5/5 B/L LE strength. No gait disturbance Skin: Physical Exam: Neuro: AAOx4, PERRLA, no aphagia, memory changes, CNII-XII grossly intact HEENT: head normocephalic, moist mucus membranes CV: Irregularly irregular , (-) M/G/R, (-) edema, cap refill < 3 seconds Resp: Lungs CTA in all melendez. On 3LNC GI: Abdomen S/NT/ND, Ax4 bowel sounds, (-) CVA tenderness Musculoskeletal: 5/5 B/L UE strength, 5/5 B/L LE strength. No gait disturbance Skin: Musculoskeletal:Physical Exam: Neuro: AAOx4, PERRLA, no aphagia, memory changes, CNII-XII grossly intact HEENT: head normocephalic, moist mucus membranes CV: Irregularly irregular , (-) M/G/R, (-) edema, cap refill < 3 seconds Resp: Lungs CTA in all melendez. On 3LNC GI: Abdomen S/NT/ND, Ax4 bowel sounds, (-) CVA tenderness Musculoskeletal: 5/5 B/L UE strength, 5/5 B/L LE strength. No gait disturbance Skin: ( Physical Exam: Neuro: AAOx4, PERRLA, no aphagia, memory changes, CNII-XII grossly intact HEENT: head normocephalic, moist mucus membranes CV: Irregularly irregular , (-) M/G/R, (-) edema, cap refill < 3 seconds Resp: Lungs CTA in all melendez. On 3LNC GI: Abdomen S/NT/ND, Ax4 bowel sounds, (-) CVA tenderness Musculoskeletal: 5/5 B/L UE strength, 5/5 B/L LE strength. No gait disturbance Skin: (-5/Physical Exam: Neuro: AAOx4, PERRLA, no aphagia, memory changes, CNII-XII grossly intact HEENT: head normocephalic, moist mucus membranes CV: Irregularly irregular , (-) M/G/R, (-) edema, cap refill < 3 seconds Resp: Lungs CTA in all melendez. On 3LNC GI: Abdomen S/NT/ND, Ax4 bowel sounds, (-) CVA tenderness Musculoskeletal: 5/5 B/L UE strength, 5/5 B/L LE strength. No gait disturbance Skin: (-)5Physical Exam: Neuro: AAOx4, PERRLA, no aphagia, memory changes, CNII-XII grossly intact HEENT: head normocephalic, moist mucus membranes CV: Irregularly irregular , (-) M/G/R, (-) edema, cap refill < 3 seconds Resp: Lungs CTA in all melendez. On 3LNC GI: Abdomen S/NT/ND, Ax4 bowel sounds, (-) CVA tenderness Musculoskeletal: 5/5 B/L UE strength, 5/5 B/L LE strength. No gait disturbance Skin: (-) Physical Exam: Neuro: AAOx4, PERRLA, no aphagia, memory changes, CNII-XII grossly intact HEENT: head normocephalic, moist mucus membranes CV: Irregularly irregular , (-) M/G/R, (-) edema, cap refill < 3 seconds Resp: Lungs CTA in all melendez. On 3LNC GI: Abdomen S/NT/ND, Ax4 bowel sounds, (-) CVA tenderness Musculoskeletal: 5/5 B/L UE strength, 5/5 B/L LE strength. No gait disturbance Skin: (-) rB/Physical Exam: Neuro: AAOx4, PERRLA, no aphagia, memory changes, CNII-XII grossly intact HEENT: head normocephalic, moist mucus membranes CV: Irregularly irregular , (-) M/G/R, (-) edema, cap refill < 3 seconds Resp: Lungs CTA in all melendez. On 3LNC GI: Abdomen S/NT/ND, Ax4 bowel sounds, (-) CVA tenderness Musculoskeletal: 5/5 B/L UE strength, 5/5 B/L LE strength. No gait disturbance Skin: (-) raLPhysical Exam: Neuro: AAOx4, PERRLA, no aphagia, memory changes, CNII-XII grossly intact HEENT: head normocephalic, moist mucus membranes CV: Irregularly irregular , (-) M/G/R, (-) edema, cap refill < 3 seconds Resp: Lungs CTA in all melendez. On 3LNC GI: Abdomen S/NT/ND, Ax4 bowel sounds, (-) CVA tenderness Musculoskeletal: 5/5 B/L UE strength, 5/5 B/L LE strength. No gait disturbance Skin: (-) ludivina Physical Exam: Neuro: AAOx4, PERRLA, no aphagia, memory changes, CNII-XII grossly intact HEENT: head normocephalic, moist mucus membranes CV: Irregularly irregular , (-) M/G/R, (-) edema, cap refill < 3 seconds Resp: Lungs CTA in all melendez. On 3LNC GI: Abdomen S/NT/ND, Ax4 bowel sounds, (-) CVA tenderness Musculoskeletal: 5/5 B/L UE strength, 5/5 B/L LE strength. No gait disturbance Skin: (-) rashUEPhysical Exam: Neuro: AAOx4, PERRLA, no aphagia, memory changes, CNII-XII grossly intact HEENT: head normocephalic, moist mucus membranes CV: Irregularly irregular , (-) M/G/R, (-) edema, cap refill < 3 seconds Resp: Lungs CTA in all melendez. On 3LNC GI: Abdomen S/NT/ND, Ax4 bowel sounds, (-) CVA tenderness Musculoskeletal: 5/5 B/L UE strength, 5/5 B/L LE strength. No gait disturbance Skin: (-) rashe Physical Exam: Neuro: AAOx4, PERRLA, no aphagia, memory changes, CNII-XII grossly intact HEENT: head normocephalic, moist mucus membranes CV: Irregularly irregular , (-) M/G/R, (-) edema, cap refill < 3 seconds Resp: Lungs CTA in all melendez. On 3LNC GI: Abdomen S/NT/ND, Ax4 bowel sounds, (-) CVA tenderness Musculoskeletal: 5/5 B/L UE strength, 5/5 B/L LE strength. No gait disturbance Skin: (-) rashesstrength,Physical Exam: Neuro: AAOx4, PERRLA, no aphagia, memory changes, CNII-XII grossly intact HEENT: head normocephalic, moist mucus membranes CV: Irregularly irregular , (-) M/G/R, (-) edema, cap refill < 3 seconds Resp: Lungs CTA in all melendez. On 3LNC GI: Abdomen S/NT/ND, Ax4 bowel sounds, (-) CVA tenderness Musculoskeletal: 5/5 B/L UE strength, 5/5 B/L LE strength. No gait disturbance Skin: (-) rashes Physical Exam: Neuro: AAOx4, PERRLA, no aphagia, memory changes, CNII-XII grossly intact HEENT: head normocephalic, moist mucus membranes CV: Irregularly irregular , (-) M/G/R, (-) edema, cap refill < 3 seconds Resp: Lungs CTA in all melendez. On 3LNC GI: Abdomen S/NT/ND, Ax4 bowel sounds, (-) CVA tenderness Musculoskeletal: 5/5 B/L UE strength, 5/5 B/L LE strength. No gait disturbance Skin: (-) rashes ,5/Physical Exam: Neuro: AAOx4, PERRLA, no aphagia, memory changes, CNII-XII grossly intact HEENT: head normocephalic, moist mucus membranes CV: Irregularly irregular , (-) M/G/R, (-) edema, cap refill < 3 seconds Resp: Lungs CTA in all melendez. On 3LNC GI: Abdomen S/NT/ND, Ax4 bowel sounds, (-) CVA tenderness Musculoskeletal: 5/5 B/L UE strength, 5/5 B/L LE strength. No gait disturbance Skin: (-) rashes , 5Physical Exam: Neuro: AAOx4, PERRLA, no aphagia, memory changes, CNII-XII grossly intact HEENT: head normocephalic, moist mucus membranes CV: Irregularly irregular , (-) M/G/R, (-) edema, cap refill < 3 seconds Resp: Lungs CTA in all melendez. On 3LNC GI: Abdomen S/NT/ND, Ax4 bowel sounds, (-) CVA tenderness Musculoskeletal: 5/5 B/L UE strength, 5/5 B/L LE strength. No gait disturbance Skin: (-) rashes , ( Physical Exam: Neuro: AAOx4, PERRLA, no aphagia, memory changes, CNII-XII grossly intact HEENT: head normocephalic, moist mucus membranes CV: Irregularly irregular , (-) M/G/R, (-) edema, cap refill < 3 seconds Resp: Lungs CTA in all melendez. On 3LNC GI: Abdomen S/NT/ND, Ax4 bowel sounds, (-) CVA tenderness Musculoskeletal: 5/5 B/L UE strength, 5/5 B/L LE strength. No gait disturbance Skin: (-) rashes , (-B/Physical Exam: Neuro: AAOx4, PERRLA, no aphagia, memory changes, CNII-XII grossly intact HEENT: head normocephalic, moist mucus membranes CV: Irregularly irregular , (-) M/G/R, (-) edema, cap refill < 3 seconds Resp: Lungs CTA in all melendez. On 3LNC GI: Abdomen S/NT/ND, Ax4 bowel sounds, (-) CVA tenderness Musculoskeletal: 5/5 B/L UE strength, 5/5 B/L LE strength. No gait disturbance Skin: (-) rashes , (-)LPhysical Exam: Neuro: AAOx4, PERRLA, no aphagia, memory changes, CNII-XII grossly intact HEENT: head normocephalic, moist mucus membranes CV: Irregularly irregular , (-) M/G/R, (-) edema, cap refill < 3 seconds Resp: Lungs CTA in all melendez. On 3LNC GI: Abdomen S/NT/ND, Ax4 bowel sounds, (-) CVA tenderness Musculoskeletal: 5/5 B/L UE strength, 5/5 B/L LE strength. No gait disturbance Skin: (-) rashes , (-) Physical Exam: Neuro: AAOx4, PERRLA, no aphagia, memory changes, CNII-XII grossly intact HEENT: head normocephalic, moist mucus membranes CV: Irregularly irregular , (-) M/G/R, (-) edema, cap refill < 3 seconds Resp: Lungs CTA in all melendez. On 3LNC GI: Abdomen S/NT/ND, Ax4 bowel sounds, (-) CVA tenderness Musculoskeletal: 5/5 B/L UE strength, 5/5 B/L LE strength. No gait disturbance Skin: (-) rashes , (-) eLEPhysical Exam: Neuro: AAOx4, PERRLA, no aphagia, memory changes, CNII-XII grossly intact HEENT: head normocephalic, moist mucus membranes CV: Irregularly irregular , (-) M/G/R, (-) edema, cap refill < 3 seconds Resp: Lungs CTA in all melendez. On 3LNC GI: Abdomen S/NT/ND, Ax4 bowel sounds, (-) CVA tenderness Musculoskeletal: 5/5 B/L UE strength, 5/5 B/L LE strength. No gait disturbance Skin: (-) rashes , (-) er Physical Exam: Neuro: AAOx4, PERRLA, no aphagia, memory changes, CNII-XII grossly intact HEENT: head normocephalic, moist mucus membranes CV: Irregularly irregular , (-) M/G/R, (-) edema, cap refill < 3 seconds Resp: Lungs CTA in all melendez. On 3LNC GI: Abdomen S/NT/ND, Ax4 bowel sounds, (-) CVA tenderness Musculoskeletal: 5/5 B/L UE strength, 5/5 B/L LE strength. No gait disturbance Skin: (-) rashes , (-) erystrength.Physical Exam: Neuro: AAOx4, PERRLA, no aphagia, memory changes, CNII-XII grossly intact HEENT: head normocephalic, moist mucus membranes CV: Irregularly irregular , (-) M/G/R, (-) edema, cap refill < 3 seconds Resp: Lungs CTA in all melendez. On 3LNC GI: Abdomen S/NT/ND, Ax4 bowel sounds, (-) CVA tenderness Musculoskeletal: 5/5 B/L UE strength, 5/5 B/L LE strength. No gait disturbance Skin: (-) rashes , (-) eryt Physical Exam: Neuro: AAOx4, PERRLA, no aphagia, memory changes, CNII-XII grossly intact HEENT: head normocephalic, moist mucus membranes CV: Irregularly irregular , (-) M/G/R, (-) edema, cap refill < 3 seconds Resp: Lungs CTA in all melendez. On 3LNC GI: Abdomen S/NT/ND, Ax4 bowel sounds, (-) CVA tenderness Musculoskeletal: 5/5 B/L UE strength, 5/5 B/L LE strength. No gait disturbance Skin: (-) rashes , (-) erythNoPhysical Exam: Neuro: AAOx4, PERRLA, no aphagia, memory changes, CNII-XII grossly intact HEENT: head normocephalic, moist mucus membranes CV: Irregularly irregular , (-) M/G/R, (-) edema, cap refill < 3 seconds Resp: Lungs CTA in all melendez. On 3LNC GI: Abdomen S/NT/ND, Ax4 bowel sounds, (-) CVA tenderness Musculoskeletal: 5/5 B/L UE strength, 5/5 B/L LE strength. No gait disturbance Skin: (-) rashes , (-) erythe Physical Exam: Neuro: AAOx4, PERRLA, no aphagia, memory changes, CNII-XII grossly intact HEENT: head normocephalic, moist mucus membranes CV: Irregularly irregular , (-) M/G/R, (-) edema, cap refill < 3 seconds Resp: Lungs CTA in all melendez. On 3LNC GI: Abdomen S/NT/ND, Ax4 bowel sounds, (-) CVA tenderness Musculoskeletal: 5/5 B/L UE strength, 5/5 B/L LE strength. No gait disturbance Skin: (-) rashes , (-) erythemgaitPhysical Exam: Neuro: AAOx4, PERRLA, no aphagia, memory changes, CNII-XII grossly intact HEENT: head normocephalic, moist mucus membranes CV: Irregularly irregular , (-) M/G/R, (-) edema, cap refill < 3 seconds Resp: Lungs CTA in all melendez. On 3LNC GI: Abdomen S/NT/ND, Ax4 bowel sounds, (-) CVA tenderness Musculoskeletal: 5/5 B/L UE strength, 5/5 B/L LE strength. No gait disturbance Skin: (-) rashes , (-) erythema Physical Exam: Neuro: AAOx4, PERRLA, no aphagia, memory changes, CNII-XII grossly intact HEENT: head normocephalic, moist mucus membranes CV: Irregularly irregular , (-) M/G/R, (-) edema, cap refill < 3 seconds Resp: Lungs CTA in all melendez. On 3LNC GI: Abdomen S/NT/ND, Ax4 bowel sounds, (-) CVA tenderness Musculoskeletal: 5/5 B/L UE strength, 5/5 B/L LE strength. No gait disturbance Skin: (-) rashes , (-) erythema.disturbancePhysical Exam: Neuro: AAOx4, PERRLA, no aphagia, memory changes, CNII-XII grossly intact HEENT: head normocephalic, moist mucus membranes CV: Irregularly irregular , (-) M/G/R, (-) edema, cap refill < 3 seconds Resp: Lungs CTA in all melendez. On 3LNC GI: Abdomen S/NT/ND, Ax4 bowel sounds, (-) CVA tenderness Musculoskeletal: 5/5 B/L UE strength, 5/5 B/L LE strength. No gait disturbance Skin: (-) rashes , (-) erythema. Physical Exam: Neuro: AAOx4, PERRLA, no aphagia, memory changes, CNII-XII grossly intact HEENT: head normocephalic, moist mucus membranes CV: Irregularly irregular , (-) M/G/R, (-) edema, cap refill < 3 seconds Resp: Lungs CTA in all melendez. On 3LNC GI: Abdomen S/NT/ND, Ax4 bowel sounds, (-) CVA tenderness Musculoskeletal: 5/5 B/L UE strength, 5/5 B/L LE strength. No gait disturbance Skin: (-) rashes , (-) erythema. PSkin:Physical Exam: Neuro: AAOx4, PERRLA, no aphagia, memory changes, CNII-XII grossly intact HEENT: head normocephalic, moist mucus membranes CV: Irregularly irregular , (-) M/G/R, (-) edema, cap refill < 3 seconds Resp: Lungs CTA in all melendez. On 3LNC GI: Abdomen S/NT/ND, Ax4 bowel sounds, (-) CVA tenderness Musculoskeletal: 5/5 B/L UE strength, 5/5 B/L LE strength. No gait disturbance Skin: (-) rashes , (-) erythema. Ps Physical Exam: Neuro: AAOx4, PERRLA, no aphagia, memory changes, CNII-XII grossly intact HEENT: head normocephalic, moist mucus membranes CV: Irregularly irregular , (-) M/G/R, (-) edema, cap refill < 3 seconds Resp: Lungs CTA in all melendez. On 3LNC GI: Abdomen S/NT/ND, Ax4 bowel sounds, (-) CVA tenderness Musculoskeletal: 5/5 B/L UE strength, 5/5 B/L LE strength. No gait disturbance Skin: (-) rashes , (-) erythema. Psy(-Physical Exam: Neuro: AAOx4, PERRLA, no aphagia, memory changes, CNII-XII grossly intact HEENT: head normocephalic, moist mucus membranes CV: Irregularly irregular , (-) M/G/R, (-) edema, cap refill < 3 seconds Resp: Lungs CTA in all melendez. On 3LNC GI: Abdomen S/NT/ND, Ax4 bowel sounds, (-) CVA tenderness Musculoskeletal: 5/5 B/L UE strength, 5/5 B/L LE strength. No gait disturbance Skin: (-) rashes , (-) erythema. Psyc)Physical Exam: Neuro: AAOx4, PERRLA, no aphagia, memory changes, CNII-XII grossly intact HEENT: head normocephalic, moist mucus membranes CV: Irregularly irregular , (-) M/G/R, (-) edema, cap refill < 3 seconds Resp: Lungs CTA in all melendez. On 3LNC GI: Abdomen S/NT/ND, Ax4 bowel sounds, (-) CVA tenderness Musculoskeletal: 5/5 B/L UE strength, 5/5 B/L LE strength. No gait disturbance Skin: (-) rashes , (-) erythema. Psych Physical Exam: Neuro: AAOx4, PERRLA, no aphagia, memory changes, CNII-XII grossly intact HEENT: head normocephalic, moist mucus membranes CV: Irregularly irregular , (-) M/G/R, (-) edema, cap refill < 3 seconds Resp: Lungs CTA in all melendez. On 3LNC GI: Abdomen S/NT/ND, Ax4 bowel sounds, (-) CVA tenderness Musculoskeletal: 5/5 B/L UE strength, 5/5 B/L LE strength. No gait disturbance Skin: (-) rashes , (-) erythema. Psych:rashesPhysical Exam: Neuro: AAOx4, PERRLA, no aphagia, memory changes, CNII-XII grossly intact HEENT: head normocephalic, moist mucus membranes CV: Irregularly irregular , (-) M/G/R, (-) edema, cap refill < 3 seconds Resp: Lungs CTA in all melendez. On 3LNC GI: Abdomen S/NT/ND, Ax4 bowel sounds, (-) CVA tenderness Musculoskeletal: 5/5 B/L UE strength, 5/5 B/L LE strength. No gait disturbance Skin: (-) rashes , (-) erythema. Psych: Physical Exam: Neuro: AAOx4, PERRLA, no aphagia, memory changes, CNII-XII grossly intact HEENT: head normocephalic, moist mucus membranes CV: Irregularly irregular , (-) M/G/R, (-) edema, cap refill < 3 seconds Resp: Lungs CTA in all melendez. On 3LNC GI: Abdomen S/NT/ND, Ax4 bowel sounds, (-) CVA tenderness Musculoskeletal: 5/5 B/L UE strength, 5/5 B/L LE strength. No gait disturbance Skin: (-) rashes , (-) erythema. Psych: e,Physical Exam: Neuro: AAOx4, PERRLA, no aphagia, memory changes, CNII-XII grossly intact HEENT: head normocephalic, moist mucus membranes CV: Irregularly irregular , (-) M/G/R, (-) edema, cap refill < 3 seconds Resp: Lungs CTA in all melendez. On 3LNC GI: Abdomen S/NT/ND, Ax4 bowel sounds, (-) CVA tenderness Musculoskeletal: 5/5 B/L UE strength, 5/5 B/L LE strength. No gait disturbance Skin: (-) rashes , (-) erythema. Psych: eu Physical Exam: Neuro: AAOx4, PERRLA, no aphagia, memory changes, CNII-XII grossly intact HEENT: head normocephalic, moist mucus membranes CV: Irregularly irregular , (-) M/G/R, (-) edema, cap refill < 3 seconds Resp: Lungs CTA in all melendez. On 3LNC GI: Abdomen S/NT/ND, Ax4 bowel sounds, (-) CVA tenderness Musculoskeletal: 5/5 B/L UE strength, 5/5 B/L LE strength. No gait disturbance Skin: (-) rashes , (-) erythema. Psych: eut(- Physical Exam: Neuro: AAOx4, PERRLA, no aphagia, memory changes, CNII-XII grossly intact HEENT: head normocephalic, moist mucus membranes CV: Irregularly irregular , (-) M/G/R, (-) edema, cap refill < 3 seconds Resp: Lungs CTA in all melendez. On 3LNC GI: Abdomen S/NT/ND, Ax4 bowel sounds, (-) CVA tenderness Musculoskeletal: 5/5 B/L UE strength, 5/5 B/L LE strength. No gait disturbance Skin: (-) rashes , (-) erythema. Psych: euth)Physical Exam: Neuro: AAOx4, PERRLA, no aphagia, memory changes, CNII-XII grossly intact HEENT: head normocephalic, moist mucus membranes CV: Irregularly irregular , (-) M/G/R, (-) edema, cap refill < 3 seconds Resp: Lungs CTA in all melendez. On 3LNC GI: Abdomen S/NT/ND, Ax4 bowel sounds, (-) CVA tenderness Musculoskeletal: 5/5 B/L UE strength, 5/5 B/L LE strength. No gait disturbance Skin: (-) rashes , (-) erythema. Psych: euthy Physical Exam: Neuro: AAOx4, PERRLA, no aphagia, memory changes, CNII-XII grossly intact HEENT: head normocephalic, moist mucus membranes CV: Irregularly irregular , (-) M/G/R, (-) edema, cap refill < 3 seconds Resp: Lungs CTA in all melendez. On 3LNC GI: Abdomen S/NT/ND, Ax4 bowel sounds, (-) CVA tenderness Musculoskeletal: 5/5 B/L UE strength, 5/5 B/L LE strength. No gait disturbance Skin: (-) rashes , (-) erythema. Psych: euthymerythema.Physical Exam: Neuro: AAOx4, PERRLA, no aphagia, memory changes, CNII-XII grossly intact HEENT: head normocephalic, moist mucus membranes CV: Irregularly irregular , (-) M/G/R, (-) edema, cap refill < 3 seconds Resp: Lungs CTA in all melendez. On 3LNC GI: Abdomen S/NT/ND, Ax4 bowel sounds, (-) CVA tenderness Musculoskeletal: 5/5 B/L UE strength, 5/5 B/L LE strength. No gait disturbance Skin: (-) rashes , (-) erythema. Psych: euthymi Physical Exam: Neuro: AAOx4, PERRLA, no aphagia, memory changes, CNII-XII grossly intact HEENT: head normocephalic, moist mucus membranes CV: Irregularly irregular , (-) M/G/R, (-) edema, cap refill < 3 seconds Resp: Lungs CTA in all melendez. On 3LNC GI: Abdomen S/NT/ND, Ax4 bowel sounds, (-) CVA tenderness Musculoskeletal: 5/5 B/L UE strength, 5/5 B/L LE strength. No gait disturbance Skin: (-) rashes , (-) erythema. Psych: euthymicPsych:Physical Exam: Neuro: AAOx4, PERRLA, no aphagia, memory changes, CNII-XII grossly intact HEENT: head normocephalic, moist mucus membranes CV: Irregularly irregular , (-) M/G/R, (-) edema, cap refill < 3 seconds Resp: Lungs CTA in all melendez. On 3LNC GI: Abdomen S/NT/ND, Ax4 bowel sounds, (-) CVA tenderness Musculoskeletal: 5/5 B/L UE strength, 5/5 B/L LE strength. No gait disturbance Skin: (-) rashes , (-) erythema. Psych: euthymic Physical Exam: Neuro: AAOx4, PERRLA, no aphagia, memory changes, CNII-XII grossly intact HEENT: head normocephalic, moist mucus membranes CV: Irregularly irregular , (-) M/G/R, (-) edema, cap refill < 3 seconds Resp: Lungs CTA in all melendez. On 3LNC GI: Abdomen S/NT/ND, Ax4 bowel sounds, (-) CVA tenderness Musculoskeletal: 5/5 B/L UE strength, 5/5 B/L LE strength. No gait disturbance Skin: (-) rashes , (-) erythema. Psych: euthymic meuthymicPhysical Exam: Neuro: AAOx4, PERRLA, no aphagia, memory changes, CNII-XII grossly intact HEENT: head normocephalic, moist mucus membranes CV: Irregularly irregular , (-) M/G/R, (-) edema, cap refill < 3 seconds Resp: Lungs CTA in all melendez. On 3LNC GI: Abdomen S/NT/ND, Ax4 bowel sounds, (-) CVA tenderness Musculoskeletal: 5/5 B/L UE strength, 5/5 B/L LE strength. No gait disturbance Skin: (-) rashes , (-) erythema. Psych: euthymic mo Physical Exam: Neuro: AAOx4, PERRLA, no aphagia, memory changes, CNII-XII grossly intact HEENT: head normocephalic, moist mucus membranes CV: Irregularly irregular , (-) M/G/R, (-) edema, cap refill < 3 seconds Resp: Lungs CTA in all melendez. On 3LNC GI: Abdomen S/NT/ND, Ax4 bowel sounds, (-) CVA tenderness Musculoskeletal: 5/5 B/L UE strength, 5/5 B/L LE strength. No gait disturbance Skin: (-) rashes , (-) erythema. Psych: euthymic moomoodPhysical Exam: Neuro: AAOx4, PERRLA, no aphagia, memory changes, CNII-XII grossly intact HEENT: head normocephalic, moist mucus membranes CV: Irregularly irregular , (-) M/G/R, (-) edema, cap refill < 3 seconds Resp: Lungs CTA in all melendez. On 3LNC GI: Abdomen S/NT/ND, Ax4 bowel sounds, (-) CVA tenderness Musculoskeletal: 5/5 B/L UE strength, 5/5 B/L LE strength. No gait disturbance Skin: (-) rashes , (-) erythema. Psych: euthymic mood Condition on Discharge: Good Activity: Resume your previous activity Non-emergency contact: Primary Care Provider Call non-emergency contact if: you have any medication questions and your symptoms worsen Follow-up/Referrals: Cyndi Rich MD [Outside Practitioners] - (Date & Time 08/24/2022 10:20 AM Provider Cyndi Lopez MD Department Family Medicine [facility] ) Diet: Carb Consistent or DM2 and Heart Healthy Addtl Attending Provider Instructions: Please take precautions to avoid fall Take your medications as advised Your carvedilol has been changed to metoprolol Your lisinopril and Aldactone are on hold Check your BMP in 1 week and the blood pressure in 1 week during your next visit to the PCP, decided to add more medicine to control blood pressure as per your PCP Please give appointment with your healthcare providers You need to be in quarantine for COVID-19 virus infection for 7 more days [employer]tl [employer] Provider Instructions: Home Isolation COVID-19 Instructions The following information about Home Isolation is from the CDC Website: https://www.cdc.gov/coronavirus/2019-ncov/hcp/mbcznmnt-wixqbcy-wicvso.html Stay home except to get medical care People who are mildly ill with COVID-19 are able to isolate at home during their illness. You should restrict activities outside your home, except for getting medical care. Do not go to work, school, or public areas. Avoid using public transportation, ride-sharing, or taxis. Separate yourself from other people and animals in your home People: As much as possible, you should stay in a specific room and away from other people in your home. Also, you should use a separate bathroom, if available. Animals: You should restrict contact with pets and other animals while you are sick with COVID-19, just like you would around other people. Although there have not been reports of pets or other animals becoming sick with COVID-19, it is still recommended that people sick with COVID-19 limit contact with animals until more information is known about the virus. When possible, have another member of your household care for your animals while you are sick. If you are sick with COVID-19, avoid contact with your pet, including petting, snuggling, being kissed or licked, and sharing food. If you must care for your pet or be around animals while you are sick, wash your hands before and after you interact with pets and wear a face mask. Call ahead before visiting your doctor If you have a medical appointment, call the healthcare provider and tell them that you have or may have COVID-19. This will help the healthcare providers office take steps to keep other people from getting infected or exposed. Wear a face mask You should wear a face mask when you are around other people (e.g., sharing a room or vehicle) or pets and before you enter a healthcare providers office. If you are not able to wear a face mask (for example, because it causes trouble breathing), then people who live with you should not stay in the same room with you, or they should wear a face mask if they enter your room. Cover your coughs and sneezes Cover your mouth and nose with a tissue when you cough or sneeze. Throw used tissues in a lined trash can. Immediately wash your hands with soap and water for at least 20 seconds or, if soap and water are not available, clean your hands with an alcohol-based hand director behavioral health that contains at least 60% alcohol. Clean your hands often Wash your hands often with soap and water for at least 20 seconds, especially after blowing your nose, coughing, or sneezing; going to the bathroom; and before eating or preparing food. If soap and water are not readily available, us e an alcohol-based hand director behavioral health with at least 60% alcohol, covering all surfaces of your hands and rubbing them together until they feel dry. Soap and water are the best option if hands are visibly dirty. Avoid touching your eyes, nose, and mouth with unwashed hands. Avoid sharing personal household items You should not share dishes, drinking glasses, cups, eating utensils, towels, or bedding with other people or pets in your home. After using these items, they should be washed thoroughly with soap and water. Clean all high-touch surfaces everyday High touch surfaces include counters, tabletops, doorknobs, bathroom fixtures, toilets, phones, keyboards, tablets, and bedside tables. Also, clean any surfaces that may have blood, stool, or body fluids on them. Use a household cleaning spray or wipe, according to the label instructions. Labels contain instructions for safe and effective use of the cleaning product including precautions you should take when applying the product, such as wearing gloves and making sure you have good ventilation during use of the product. Monitor your symptoms Seek prompt medical attention if your illness is worsening (e.g., difficulty breathing).Beforeseeking care, call your healthcare provider and tell them that you have, or are being evaluated for, COVID-19. Put on a face mask before you enter the facility. These steps will help the healthcare providers office to keep other people in the office or waiting room from getting infected or exp osed. Ask your healthcare provider to call the local or state health department. Persons who are placed under active monitoring or facilitated self-monitoring should follow instructions provided by their local health department or occupational health professionals, as appropriate. When working with your local health department check their available hours. If you have a medical emergency and need to call 911, notify the dispatch personnel that you have, or are being evaluated for COVID-19. If possible, put on a face mask before emergency medical services arrive. Discontinuing home isolation Patients with confirmed COVID-19 should remain under home isolation precautions until the risk of secondary transmission to others is thought to be low. The decision to discontinue home isolation precautions should be made on a [id number] basis, in consultation with healthcare providers and [facility] and [facility] health departments. Pending Studies at Discharge: No Stand-Alone Forms: My [id number], Smoking Cessation Medications and DC Order Prescriptions: New metoprolol tartrate 50 mg Tablet 50 mg PO BID 30 Days Qty: 60 0RF dexamethasone 6 mg tablet 6 mg PO DAILY Qty: 7 0RF Continued potassium chloride 10 mEq Tablet Extended Release 10 meq PO QAM Qty: 0 aspirin 81 mg Tablet,Delayed Release (Dr/Ec) 81 mg PO DAILY Qty: 0 nitroglycerin [Nitrostat] 0.4 mg Tablet, Sublingual 0.4 mg sublingual Q5M PRN (Reason: Chest Pain) Qty: 0 Patient Comments: Place 0.4 mg under tongue every 5 minutes as needed for chest pain. Up to 3 doses in 15 minutes. Rx Instructions: 1 t under the tongue q 5 minutes x 3 doses in 15 minutes if no relief call 911 metformin 500 mg Tablet Extended Release 24 Hr 2,000 mg PO QAM Qty: 0 rosuvastatin 10 mg Tablet 10 mg PO QAM Qty: 0 terazosin 5 mg Capsule 5 mg PO HS Qty: 0 apixaban 5 mg Tablet 5 mg PO BID Qty: 0 acetaminophen 500 mg Tablet 500 mg PO Q8H PRN (Reason: Pain) Qty: 0 lidocaine 5 % Adhesive Patch,Medicated 1 patch TOPICAL DAILY PRN (Reason: Pain) Qty: 0 Patient Comments: MAY APPLY UPTO THREE PATCHES IN 24 HOURS, REMOVE AFTER 12 HOURS Rx Instructions: leave on most painful area for up to 12 hrs Remove at night hydralazine 25 mg Tablet 12.5 mg PO BID cyanocobalamin (vitamin B-12) 500 mcg Tablet 500 mcg PO QAM Jardiance 25 mg tablet 25 mg PO QAM Changed furosemide 40 mg Tablet 40 mg PO QAM Qty: 30 0RF Discontinued carvedilol 25 mg Tablet 37.5 mg PO BID Qty: 0 Rx Instructions: must administer with a meal/food lisinopril 20 mg Tablet 20 mg PO BID Qty: 0 spironolactone 25 mg Tablet 25 mg PO QAM Qty: 0 Discharge Orders: Discharge Order (Routine); Ordered 08/16/22 Ordered By: Abiodun Aguila Admission Data Admit Date/Time: 08/14/22 15:14 Attending Provider: Abiodun Aguila Admit Provider: Abiodun Aguila Primary Care Provider: Crow Garcia Other Providers: Abiodun Aguila ; Buck Cantu Other Interventions: Discharge Summary Assessment (RN) Last Done: 08/16/22 15:47
== END 2022-08-16 17:50 | disposition home health service (06) | DRG 178 ==
LOC: ED 13:41 → 2S 15:14 → INTOOBSV 15:14 → 2S 16:22

== ENCOUNTER 2022-09-08 15:06 | Inpatient (IN) ==
[2022-09-08] MEDS ORDERED: GLUCOSE 10 TAB/TUBE PO PRN (16:43)
[2022-09-08] MEDS ORDERED: ACETAMINOPHEN 325 MG TAB PO PRN (16:43)
[2022-09-08] MEDS ORDERED: GLUCAGON FOR INJ 1 MG VIAL SQ PRN (16:43)
[2022-09-08] MEDS ORDERED: CARBOHYDRATES FOR HYPOGLYCEMIA PO PRN (16:43)
[2022-09-08] MEDS ORDERED: GLUCOSE 40% GEL 15 GM TUBE PO PRN (16:43)
[2022-09-08] MEDS ORDERED: DEXTROSE 50% 50 ML SYRINGE IV PRN (16:43)
[2022-09-08] MEDS ORDERED: ONDANSETRON INJ 2 MG/ML 2 ML VIAL IV PRN (16:43)
[2022-09-08] MEDS ORDERED: METOPROLOL TARTRATE 1 MG/ML VIAL IV STA (22:37)
[2022-09-08] MEDS: INSULIN ASPART PER UNIT CHARGE SC SCH (22:45)
[2022-09-08] MEDS ORDERED: NITROGLYCERIN SL 0.4 MG/TAB TAB SL PRN (22:59)
[2022-09-08] MEDS ORDERED: LIDOCAINE 5% 1 PATCH TD PRN (22:59)
[2022-09-08] MEDS ORDERED: TERAZOSIN HCL 5 MG CAP PO STA (23:04)
[2022-09-08 23:33] LABS: Troponin I High Sensitivity 36.7 pg/ml (0-20)
[2022-09-08] MEDS: FUROSEMIDE 40 MG/4 ML VIAL IV SCH (23:53)
[2022-09-08] MEDS: hydrALAZINE HCL 25 MG TAB PO SCH (23:53)
[2022-09-08] MEDS: METOPROLOL TARTRATE 50 MG TAB PO SCH (23:53)
[2022-09-08] MEDS: APIXABAN 5 MG TABLET PO SCH (23:53)
[2022-09-09 00:35] LABS: INR 1.4 (0.9-1.1); Prothrombin Time 14.3 Seconds (9.0-12.0)
--- NOTE | 2022-09-09 00:36 | History and Physical Report ---
DATE OF ADMISSION: 09/08/2022. CHIEF COMPLAINT: Shortness of breath. HISTORY OF PRESENT ILLNESS: This is a 77-year-old male with a past medical history significant for type 2 diabetes, hypertension, chronic kidney disease stage III, hyperlipidemia, paroxysmal atrial fibrillation, diastolic CHF, CAD, hypertension, history of tachy-aquiles syndrome, status post pacemaker, history of COVID-19 in April and also in July of 2022. Presents with shortness of breath. The patient went to [facility] with shortness of breath in the morning. The patient was requiring oxygen. Received a dose of IV Lasix 80 mg and he was also in rapid AFib, was given Lopressor and also placed on Cardizem drip and transferred here for his cardiology evaluation. The patient states since then he micturated and is feeling his shortness of breath is much improved. The symptoms started two days ago. He says his swelling of the legs is also worsened. Denies any orthopnea. He ambulates with a walker. Denies any chest pain, no nausea, no abdominal pain, no headache, no dizziness. He has some blurred visions. No earache, no runny nose, no sore throat, no cough. Appetite is down the last two days. No hematuria or blood in the stools or black stools. Currently, his heart rate is in the 120s. ALLERGIES: No known drug allergies. PAST MEDICAL HISTORY: As mentioned above. PAST SURGICAL HISTORY: Cardiac catheterization, colonoscopy with biopsy, dual chamber pacemaker, lumbar spine fusion surgery, cataract surgeries, inguinal hernia repair, repair of umbilical hernia, revision of palate, pharynx, uvula, spinal fusion surgery. MEDICATIONS: The patient is on Tylenol 500 mg p.o. q. 8 hours p.r.n., Eliquis 5 mg p.o. b.i.d., aspirin 81 mg p.o. daily, vitamin B12 500 mcg p.o. daily, Lasix 40 mg p.o. a.m., hydralazine 12.5 mg p.o. b.i.d., Jardiance 25 mg p.o. a.m., lidocaine patch topical daily p.r.n., metformin 2 g p.o. daily, metoprolol tartrate 50 mg p.o. b.i.d., nitroglycerin 0.4 mg sublingual p.r.n., potassium chloride 10 mEq p.o. daily, rosuvastatin 10 mg p.o. a.m., terazosin 5 mg p.o. at bedtime. FAMILY HISTORY: Significant for father had colon cancer; brother has heart attack; daughter has heart attack; father has stroke; mother has stroke. SOCIAL HISTORY: . Former smoker. Alcohol, beer once in a while. No drug use. REVIEW OF SYSTEMS: As per HPI. Rest of the review of systems is negative. PHYSICAL EXAMINATION: GENERAL: The patient is obese, not in acute distress. VITAL SIGNS: Temperature 37, pulse 125, respiratory rate 18, blood pressure 151/80, oxygen 95% on 2 liters. HEENT: Extraocular muscles intact. No pallor. No icterus. No facial droop. Oral mucosa moist. NECK: No JVD, no neck masses. CARDIOVASCULAR: S1 and S2 heard. Tachycardia. No murmurs. RESPIRATORY SYSTEM: Normal AP diameter. No accessory muscle use. No wheezing, no crackles. ABDOMEN: Soft, bowel sounds present, nontender, no distention. CENTRAL NERVOUS SYSTEM: Alert and oriented. Speech is clear. Insight is good. Obeys commands. Moves extremities. EXTREMITIES: Bilateral lower extremity, +2 pedal edema present. Chronic skin changes seen. No obvious erythema seen. LABORATORY DATA: Glucose is 203. Labs done at [facility] show hemoglobin 15.5, hematocrit 48.7, WBC 7.5, platelets 173. D-dimer 379. PT 29.1, INR 2.4? APTT 41.2. Troponin I 94. BNP 4400. Lactic acid was 3.3, repeat is 2.3. Urinalysis negative. Flu and SARS-CoV-2 rapid test negative. Sodium 133, potassium 3.7, chloride 100, bicarbonate 25, BUN 28, creatinine 1.3, serum glucose 247, calcium 8.9, AST 13, ALT 16, alkaline phosphatase 87. EKG: AFib at a rate of 108, left axis deviation, left bundle-branch block. ASSESSMENT AND PLAN: This is a 77-year-old male who presents with [id number] diastolic congestive heart failure and rapid atrial fibrillation. 1. Iumvr-nu-jbbqiqr diastolic congestive heart failure: Received IV Lasix 80 mg at outside hospital. Was waiting whole day for transfer here. Will continue with IV Lasix 40 b.i.d., daily weights, I's and O's. Will get echocardiogram. His BNP was 4400 at outside hospital and also lactic acid was elevated, most likely from hypoxia. Will follow the repeat lactic acid, and follow the repeat troponins. His troponin was 94, most likely from demand ischemia. Denies chest pain. Will also follow the echocardiogram. Will keep n.p.o. after midnight and monitor in the tele and consult cardiology in the a.m. Continue his home potassium supplement. At home, he is on Lasix 40 daily. 2. Rapid atrial fibrillation: Received IV Lopressor and Cardizem drip as outpatient. Currently will give IV Lopressor 5mg and restart his home metoprolol 50 mg b.i.d. He is on Eliquis. Will monitor his heart rates.Also Seems his LBBB is new from last admissions. To avoid qt prolong drugs as it is prolonged on ekg.Patient has dual chamber pacemaker. hx of tachy aquiels syndrome..Await cardio inputs. 3. Diabetes: Hold his metformin and Jardiance. Placed on insulin sliding scale. Follow the blood sugars. 4. Hyperlipidemia: On statin. 5. Hypertension: On metoprolol, hydralazine, and terazosin. Will monitor his blood pressure. 6. History of tachy-aquiles syndrome, status post pacemaker. 7. History of chronic kidney disease stage III: His creatinine was 1.3. Follow the repeat labs. He is getting his Lasix. 8. History of nonobstructive coronary artery disease: With cardiac catheterization in 2009. Will follow the echo and troponins. On aspirin, Eliquis, beta temo, and statin. 9. Deep venous thrombosis prophylaxis: On Eliquis. Addendum; HAd many bursts of vtach last night checked mag and potassium which were 1.7 and 3.8 respectively. Gave 1gm mag sulphate iv and 20meq kcl. Then he had 60beat of vtach d/cw icu. On ekg qt is prolonged. Loaded with iv mag and gave a dose of iv lopressor 2.5mg seems had another run of vtach while he was getting Lopressor. Hemodynamics stable. Follow repeat ekg . Pacemaker interrogation. Will notify cardiology. DISPOSITION: Closely monitor in the tele floor. Level 1 full code as per my discussion with the patient. PT/OT prior to discharge. Social service to help with discharge planning. Job ID: [id number] [place]
[2022-09-09 01:38] LABS: Magnesium 1.7 mg/dl (1.7-2.4); Potassium 3.8 mmol/L (3.5-5.1)
[2022-09-09] MEDS ORDERED: MAGNESIUM SULFATE / D5W 1 GM/100 ML BAG IV ONE (03:11)
[2022-09-09] MEDS ORDERED: POTASSIUM CHLORIDE CRTAB 20 MEQ TABCR PO STA (03:44)
[2022-09-09] MEDS ORDERED: METOPROLOL TARTRATE 1 MG/ML VIAL IV STA (05:00)
[2022-09-09] MEDS ORDERED: MAGNESIUM SULFATE / D5W 1 GM/100 ML BAG IV SCH (05:00)
[2022-09-09] MEDS: MAGNESIUM SULFATE / D5W 1 GM/100 ML BAG IV SCH ×3 (05:21→09:27)
[2022-09-09 06:35] LABS: Basophils # (auto) 0.03 K/uL (0-0.2); Basophils % (auto) 0.6 %; Eosinophils # (auto) 0.17 K/uL (0-0.50); Eosinophils % (auto) 3.1 %; Hematocrit (blood only) 44.5 % (42.0-52.0); Hemoglobin 14.6 g/dl (14.0-18.0); Immature Granulocytes # (auto) 0.05 K/uL (0.01-0.20); Immature Granulocytes % (auto) 0.9 %; Lymphocytes # (auto) 1.12 K/uL (1.2-3.4); Lymphocytes % (auto) 20.7 %; Mean Corpuscular Hemoglobin 32.1 pg (25.0-34.0); Mean Corpuscular Hgb Conc 32.8 g/dL (32.0-36.0); Mean Corpuscular Volume 97.8 fL (80.0-100.0); Mean Platelet Volume 10.5 fL (9.4-12.4); Monocytes # (auto) 0.48 K/uL (0.11-0.59); Monocytes % (auto) 8.9 %; Neutrophils # (auto) 3.57 K/uL (1.40-6.50); Neutrophils % (auto) 65.8 %; Platelet Count 170 K/uL (130-400); RDW Standard Deviation 54.1 fL (36.4-46.3); Red Blood Count 4.55 M/uL (4.70-6.10); White Blood Count 5.42 K/ul (4.8-10.8)
[2022-09-09 06:54] LABS: Albumin Globulin Ratio 1.4 (0.9-2); Albumin Level 3.4 gm/dl (3.4-5.0); BUN Creatinine Ratio 22.4 (10-20); Bilirubin,Total 1.3 mg/dl (0.2-1.0); Calcium 8.6 mg/dl (8.5-10.1); Creatinine Clr Calc Pharmacy 50.8 ml/min; Est GFR (Non-African American) 60.4 ml/min; Globulin 2.5 gm/dl (2.5-4.0); Phosphorus 4.3 mg/dl (2.5-4.9); Potassium 3.2 mmol/L (3.5-5.1); Total Protein 5.9 gm/dl (6.0-8.3)
[2022-09-09] MEDS: POTASSIUM CHLORIDE 10 MEQ TABCR PO SCH (07:36)
[2022-09-09] MEDS: ROSUVASTATIN CALCIUM 10 MG TAB PO SCH (07:36)
[2022-09-09] MEDS: APIXABAN 5 MG TABLET PO SCH ×2 (07:36→21:33)
[2022-09-09] MEDS: hydrALAZINE HCL 25 MG TAB PO SCH ×2 (07:36→21:33)
[2022-09-09] MEDS: ASPIRIN 81 MG ECTAB PO SCH (07:36)
[2022-09-09] MEDS: METOPROLOL TARTRATE 50 MG TAB PO SCH (07:36)
[2022-09-09] MEDS: CYANOCOBALAMIN (B-12) 500 MCG TABLET PO SCH (07:36)
[2022-09-09] MEDS: FUROSEMIDE 40 MG/4 ML VIAL IV SCH ×2 (07:37→21:37)
[2022-09-09] MEDS ORDERED: MICONAZOLE NITRATE POWDER 85 GM EXT PRN (07:41)
[2022-09-09] MEDS: POTASSIUM CHLORIDE / WTR 10 MEQ/100 ML PLCT IV SCH ×2 (08:04→09:06)
[2022-09-09] MEDS: INSULIN ASPART PER UNIT CHARGE SC SCH ×4 (08:35→21:34)
--- NOTE | 2022-09-09 08:42 | Cardiology Consultation ---
Date of Consultation September 09, 2022 Assessment & Plan (1) Acute on chronic diastolic HF (heart failure): (2) Permanent atrial fibrillation: (3) Tachy-aquiles syndrome: (4) Elevated troponin: Plan IMPRESSION: 77 year old male who initially presented to the ED due to worsening SOB and hypoxia. Patient hypervolemic on exam secondary to dietary indiscretions. Improvement in clinical status with IV Lasix and Lopressor. Patient with known permanent atrial fibrillation/tachybradycardia syndrome with BiV pacemaker. Telemetry revealing permanent A-fib and 2 episodes of nonsustained VT lasting 8 and 12 beats. Mildly elevated high-sensitivity troponin in the setting of demand ischemia. No indication for ACS at this time. PLAN: Increase metoprolol tartrate 75 mg BID for better rate control and suppression of VT/ectopy- will likely transition to succinate formulary at discharge. Continue IV diuresis with 40 mg IV Lasix BID. Trend renal function and electrolytes, replace potassium for a goal of 4.0 and mag goal of 2.0. CHF education Strict I&O with standing daily weights if able. Case discussed with Dr. Fernandez- will follow. Supervising Physician Co-Signing Physician Notes Patient seen and examined at the bedside. PE: VSS. Gen: NAD, AAO x3. Heart: Irregular rhythm, normal S1-S2. 2/6 holosystolic murmur heard best at the apex. Lungs: Rales at the bases bilaterally. Extremities: Trace to mild bilateral pretibial edema. A/P: Agree with above [employer] WORK[employer] history, physical exam, assessment and plan. 77-year-old patient admitted with acute on chronic heart failure with preserved ejection fraction and atrial fibrillation with rapid ventricular response. 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 Continue IV furosemide 40 mg twice daily. Titrate metoprolol 75 mg twice daily to improve heart rate control. Monitor daily weight, fluid balance, GFR, and electrolytes. Continue anticoagulation with apixaban. History of Present Illness Reason for Consultation: Acute on chronic CHF AF with RVR Requesting Physician: [facility] Hospitalist team Attending Physician: Abiodun Aguila MD History of Present Illness 77 year old male. Initially presented to [facility] with sudden onset of shortness of breath and hypoxia on 09/08. Noted lower extremity swelling x1 week. Treated with 80 mg of IV Lasix. Patient was in rapid A-fib IV Lopressor and IV Cardizem started. Patient was transferred to [facility] for further evaluation and care. On admission heart rates were elevated in the 120s-was given additional 5 mg of IV Lasix and home dose metoprolol succinate 50 mg twice daily was restarted. IV Lasix 40 mg twice daily continued. (Maintained on Lasix 40 mg daily at home) High-sensitivity troponin mildly elevated 36.7>>40.0 Lab work showing stable renal function with hypokalemia. Potassium and mag supplemented. EKG: Atrial fibrillation with left bundle branch block-similar to last EKG dated 07/2022 CXR: 1. Cardiomegaly. Interstitial thickening suggestive of mild pulmonary edema. 2. Hazy right infrahilar opacity. Echo 07/2022: Low normal LVEF 50-55%, no acute WMA, mild AI and MR 09/09: Upon entrance into the room patient resting in bed. Ongoing SOB, tachypneic with movement. Asymptomatic with AFIB, no palpitations. Heart rates remain borderline tachycardic. No chest pain States that he feels slightly improved compared to yesterday. Legs no longer swollen. Admits to not watching sodium or fluid intake at home. Lives with daughter who manages his medications. Ambulates at home with a walker. Tele: Paced/AFIB underlying LBBB 90-100s, 8 beat run of VT at 0039 and 12 beat run of VT at 0054. I&O: -600mL Weight: 84kg >> 83.1kg (last documented outpatient weight from 08/24 was 85 kg in PCP office) Past medical history: Chronic diastolic CHF Paroxysmal now permanent atrial fibrillation, amiodarone discontinued 11/2021. Anticoagulated on Eliquis Tachybradycardia syndrome, status post dual-chamber permanent pacemaker 07/23/2013 Hypertension with hypertensive heart disease Nonobstructive CAD per cardiac catheterization 02/2010 Enlarged aortic root and ascending aorta LIZZIE Elevated hemoglobin and hematocrit, mildly elevated EPO-suspected secondary to untreated LIZZIE and/or chronic hypoxemia Dyslipidemia CKD stage III Allergies Allergy/AdvReac Type Severity Reaction Status Date / Time No Known Allergies Allergy Unverified 08/14/22 14:41 Home Medications Medication Instructions Recorded Confirmed Type aspirin 81 mg tablet,delayed 81 mg PO DAILY ##0 03/23/15 08/14/22 History release metformin 500 mg tablet,extended 2,000 mg PO QAM #0 tabs 03/23/15 08/14/22 History release 24 hr nitroglycerin 0.4 mg sublingual 0.4 mg sublingual Q5M PRN Chest 03/23/15 08/14/22 History tablet (Nitrostat) Pain #0 BTLS potassium chloride 10 mEq 10 meq PO QAM #0 caps 03/23/15 08/14/22 History tablet,extended release rosuvastatin 10 mg tablet 10 mg PO QAM #0 tabs 03/23/15 08/14/22 History terazosin 5 mg capsule 5 mg PO HS #0 caps 10/06/15 08/14/22 History apixaban 5 mg tablet 5 mg PO BID ##0 12/10/15 08/14/22 History acetaminophen 500 mg tablet 500 mg PO Q8H PRN Pain #0 tabs 09/13/16 08/14/22 History lidocaine 5 % topical patch 1 patch topical DAILY PRN Pain ##0 09/13/16 08/14/22 History cyanocobalamin (vitamin B-12) 500 500 mcg PO QAM 08/14/22 08/14/22 History mcg tablet empagliflozin 25 mg tablet 25 mg PO QAM 08/14/22 08/14/22 History (Jardiance) hydralazine 25 mg tablet 12.5 mg PO BID 08/14/22 08/14/22 History furosemide 40 mg tablet 40 mg PO QAM #30 tabs 08/16/22 08/14/22 Rx metoprolol tartrate 50 mg tablet 50 mg PO BID 30 days #60 tabs 08/16/22 Rx Patient History Medical History (Updated 09/09/22 @ 10:00 by TOBIN Sharif) COVID-19 Hypoxia Social History Smoking Status: Former smoker Second Hand Exposure: No; Do You Dip or Chew Tobacco: No; Tobacco Cessation Education Requested by Patient: No Hx Alcohol Use: No Hx Substance Use: No Preferred Language: Nigerian Communication Ability: Effective 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: No Beliefs That Will Affect Care: None Current Living Situation: Family Current Living Situation Comment: daughters live with him Other Information That Helps Us Care for You: No Feels Safe at Home: Yes Safety Concerns: Feels Safe At This Time Assistive Devices: Cane and Walker Review of Systems Review of Systems: All systems reviewed & are unremarkable except as noted in HPI & below Physical Exam Constitutional: WD/WN, vitals as above Neck: normal visual inspection and trachea midline Respiratory: + tachypneic; no respiratory distress and no cough Auscultation: + rales; no rhonchi and no wheezes Cardiovascular: Rate/Rhythm: + tachycardic and + irregularly irregular Vessels: + JVD Extremities: no edema Chest (Breasts): Chest: + pacemaker Skin: no rashes, warm and dry Psychiatric: A+Ox3, euthymic affect Results & Data Vital Signs (Past 12 Hours) Vital Signs Temp Pulse Pulse Resp BP BP Pulse Ox 09/09/22 07:13 36.5 C 75 18 131/79 97 09/09/22 05:17 123 H 117/78 09/09/22 03:00 36.8 C 86 18 107/73 97 09/08/22 23:13 09/08/22 22:46 125 H 151/80 H 09/08/22 22:36 37.0 C 104 H 18 161/80 H 95 O2 Del Method O2 Flow Rate 09/09/22 07:13 Nasal Cannula 2 09/09/22 05:17 09/09/22 03:00 Nasal Cannula 2 09/08/22 23:13 Nasal Cannula 2 09/08/22 22:46 09/08/22 22:36 Nasal Cannula 2 Laboratory Results Cardiac Enzymes 09/08/22 09/08/22 09/09/22 Range/Units 22:28 22:28 05:35 AST 12 L (13-39) U/L Troponin I High Sens 36.7 H 40.0 H (0-20) pg/ml B-Natriuretic Peptide 589 H (0-100) pg/ml Coagulation 09/08/22 09/08/22 Range/Units 22:28 23:47 PT 14.3 H (9.0-12.0) Seconds B-Natriuretic Peptide 589 H (0-100) pg/ml CBC 09/09/22 Range/Units 05:35 WBC 5.42 (4.8-10.8) K/ul RBC 4.55 L (4.70-6.10) M/uL Hgb 14.6 (14.0-18.0) g/dl Hct 44.5 (42.0-52.0) % Plt Count 170 (130-400) K/uL Neut # (Auto) 3.57 (1.40-6.50) K/uL Lymph # (Auto) 1.12 L (1.2-3.4) K/uL Borden # (Auto) 0.48 (0.11-0.59) K/uL Eos # (Auto) 0.17 (0-0.50) K/uL Baso # (Auto) 0.03 (0-0.2) K/uL Comprehensive Metabolic Panel 09/08/22 09/09/22 Range/Units 22:28 05:35 Sodium 139 (136-145) mmol/L Potassium 3.8 3.2 L (3.5-5.1) mmol/L Chloride 98 (98-107) mmol/L Carbon Dioxide 32 (21-32) mmol/L BUN 26 H (6-23) mg/dl Creatinine 1.16 (0.6-1.4) mg/dl Glucose 153 H (70-99(Fasting)) mg/dl Calcium 8.6 (8.5-10.1) mg/dl AST 12 L (13-39) U/L ALT 9 (7-52) U/L Alkaline Phosphatase 65 (34-104) U/L Total Protein 5.9 L (6.0-8.3) gm/dl Albumin 3.4 (3.4-5.0) gm/dl Intake and Output 09/08/22 09/09/22 09/09/22 22:59 06:59 14:59 Intake Total 100 / 100 100 / 100 Output Total 300 / 800 500 / 800 Balance -300 / -700 -400 / -700 100 / 100 Intake: IV 100 / 100 100 / 100 Magnesium Sulfate / D5w 1 gm In 100 / 100 100 / 100 100 ml @ 50 mls/hr IV Q2H [facility] Rx#:[id number] Output: Urine 300 / 800 500 / 800 Other: Other Intake Source NPO Weight 84 kg 83.1 kg Weight Measurement Method Built in [facility] Built in [facility] Diagnostic Findings Echo 07/2022 [facility] LVEF 50-55% Mild concentric LVH Apical wall motion reflecting ppm activation, otherwise normal Mild AI and mild MR
[2022-09-09] MEDS ORDERED: METOPROLOL TARTRATE 25 MG TAB PO ONE (10:00)
--- NOTE | 2022-09-09 10:46 | XRay Report ---
XR chest 1V portable CLINICAL HISTORY: Congestive heart failure. COMPARISON STUDY: Chest radiograph August 15, 2022. FINDINGS: Dual lead left subclavian pacer is in place. There is no pneumothorax. No definite pleural effusion is present. Hazy right infrahilar opacity has developed. There is also mild interstitial thi ckening. No lobar consolidation. IMPRESSION: 1. Cardiomegaly. Interstitial thickening suggestive of mild pulmonary edema. 2. Hazy right infrahilar opacity. ACT 112: Negative or not required by law. Electronically signed by: Darrick Begum M.D. 09/09/2022 10:45 AM
--- NOTE | 2022-09-09 16:37 | Hospitalist Progress Note ---
Date of Service September 09, 2022 Assessment & Plan (1) Acute on chronic diastolic HF (heart failure): Plan: History of chronic diastolic heart failure and admitted with increasing shortness of breath secondary to acute on chronic diastolic CHF Has been getting intravenous Lasix Clinically much better Appreciate cardiology input and recommendation Echo of the heart showed EF of 50 to 55%, septal motion is consistent with conduction abnormality, LV severely dilated, aortic valve sclerosis mild without significant stenosis, mild to moderate aortic regurgitation, there is mild to moderate mitral regurgitation, there is mild tricuspid regurgitation, estimated systolic pulmonary pressure is 43 mmHg, dilated inferior vena cava with reduced collapsibility with sniff indicates an elevated right atrial pressure of 15 mmHg, mild aortic root dilatation and mildly dilated ascending aorta Fluid restriction to 1200 mL and strict intake and output well-maintained Electrolyte imbalance Potassium and magnesium have been supplemented We will maintain the level as advised (2) Permanent atrial fibrillation: Plan: Rate is controlled now His metoprolol doses have been increased Has been on Eliquis and aspirin (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 (4) DM type 2 (diabetes mellitus, type 2): Plan: SSI Monitor blood sugar (5) CKD (chronic kidney disease), stage III: Plan: Creatinine seems to be stable at 1.16 We will monitor PRP and electrolytes (6) Sleep apnea: (7) Hypertension: (8) Dyslipidemia: Plan: Continue statin Admission and Anticipated Discharge Date Admission Date: September 08, 2022 Subjective 09/09/2022 The patient was seen and examined in telemetry unit He has significant cardiac disease including tachybradycardia syndrome status post pacemaker and persistent atrial fibrillation with diastolic heart failure He has been feeling much better following admission and diuresis Denies any chest pain and no palpitation at rest Review of Systems Review of Systems: All systems reviewed and are unremarkable except as noted below Physical Exam Physical Exam: Lying in bed comfortably Constitutional: well developed, well nourished, + ill appearing and + obese Eyes: PERRL, conjunctivae normal, anicteric sclerae ENMT: external ear and nose normal, oropharynx normal Neck: trachea midline, no thyromegaly Respiratory: no respiratory distress Auscultation: + diminished lung sounds and + crackles (Bibasilar crackles) Cardiovascular: Rate/Rhythm: + irregularly irregular; not tachycardic Heart Sounds: normal S1, normal S2 and + murmur Extremities: + edema (1+ edema bilaterally) Gastrointestinal (Abdomen): Inspection/Auscultation: + abdomen distended and normal bowel sounds Percussion/Palpation: abdomen soft; abdomen nontender Musculoskeletal: No acute arthritis involving any joint Neurologic: normal touch/pain/proprioception and moves all extremities; no focal motor deficits Psychiatric: A+Ox3, euthymic affect Lymphatic: no cervical or axillary lymphadenopathy Results & Data Results & Data Vital Signs (Past 12 Hours) Vital Signs Temp Pulse Pulse Resp BP BP Pulse Ox 09/09/22 16:13 36.8 C 88 18 142/81 H 94 09/09/22 12:27 36.8 C 73 18 110/72 95 09/09/22 08:00 09/09/22 07:13 36.5 C 75 18 131/79 97 09/09/22 05:17 123 H 117/78 O2 Del Method O2 Flow Rate 09/09/22 16:13 Nasal Cannula 2 09/09/22 12:27 Nasal Cannula 2 09/09/22 08:00 Nasal Cannula 2 09/09/22 07:13 Nasal Cannula 2 09/09/22 05:17 Laboratory Results Short CBC 09/09/22 Range/Units 05:35 WBC 5.42 (4.8-10.8) K/ul Hgb 14.6 (14.0-18.0) g/dl Hct 44.5 (42.0-52.0) % Plt Count 170 (130-400) K/uL BMP 09/08/22 09/09/22 22:28 05:35 Sodium 139 Potassium 3.8 3.2 L Chloride 98 Carbon Dioxide 32 BUN 26 H Creatinine 1.16 Glucose 153 H Calcium 8.6 Liver Function 09/09/22 Range/Units 05:35 Total Bilirubin 1.3 H (0.2-1.0) mg/dl AST 12 L (13-39) U/L ALT 9 (7-52) U/L Alkaline Phosphatase 65 (34-104) U/L Albumin 3.4 (3.4-5.0) gm/dl Medications Administered Current Inpatient Medications Acetaminophen (Acetaminophen 325 Mg Tab) 650 mg PO Q4H PRN PRN Reason: Moderate Pain (Scale 4, 5, 6) Stop: 10/08/22 16:42 Apixaban (Apixaban 5 Mg Tablet) 5 mg PO BID [facility] Stop: 10/08/22 22:59 Last Admin: 09/09/22 07:36 Dose: 5 mg Aspirin (Aspirin 81 Mg Ectab) 81 mg PO DAILY [facility] Stop: 10/09/22 08:59 Last Admin: 09/09/22 07:36 Dose: 81 mg Cyanocobalamin (Cyanocobalamin (B-12) 500 Mcg Tablet) 500 mcg PO QAM [facility] Stop: 10/09/22 08:59 Last Admin: 09/09/22 07:36 Dose: 500 mcg Dextrose (Dextrose 50% 50 Ml Syringe) 25 - 50 ml IV UD PRN; Protocol PRN Reason: Hypoglycemia Protocol Stop: 10/08/22 16:42 Furosemide (Furosemide 40 Mg/4 Ml Vial) 40 mg IV BID [facility] Stop: 10/08/22 23:14 Last Admin: 09/09/22 07:37 Dose: 40 mg Glucagon (Glucagon For Inj 1 Mg Vial) 1 mg SQ UD PRN; Protocol PRN Reason: Hypoglycemia Protocol Stop: 10/08/22 16:42 Glucose (Glucose 10 Tab/Tube) 4 - 8 tab PO UD PRN; Protocol PRN Reason: Hypoglycemia Treatment Stop: 10/08/22 16:42 Glucose (Glucose 40% Gel 15 Gm Tube) 15 - 30 gm PO UD PRN; Protocol PRN Reason: Hypoglycemia Protocol Stop: 10/08/22 16:42 Hydralazine HCl (Hydralazine Hcl 25 Mg Tab) 12.5 mg PO BID [facility] Stop: 10/08/22 22:59 Last Admin: 09/09/22 07:36 Dose: 12.5 mg Insulin Aspart (Insulin Aspart Per Unit) 0 units SC ACHS [facility] Stop: 10/08/22 20:59 Last Admin: 09/09/22 12:12 Dose: 6 units Lidocaine (Lidocaine 5% 1 Patch) 1 patch TD DAILY PRN PRN Reason: Pain Stop: 10/08/22 22:58 Metoprolol Tartrate (Metoprolol Tartrate 25 Mg Tab) 75 mg PO BID [facility] Stop: 10/09/22 20:59 Miconazole Nitrate (Miconazole Nitrate Powder 85 Gm) 1 appln EXT PRN PRN PRN Reason: Affected Skin Folds Stop: 10/09/22 07:40 Miscellaneous (Carbohydrates For Hypoglycemia ) 15 - 30 gm PO UD PRN PRN Reason: Hypoglycemia Protocol Stop: 10/08/22 16:42 Miscellaneous (Remove Lidoderm Patch) 1 each N/A DAILY@2100 [facility] Stop: 10/09/22 20:59 Multi-Ingredient Cream (Eucerin Cr 120 Gm Jar) 1 appln EXT BID [facility] Stop: 10/09/22 20:59 Nitroglycerin (Nitroglycerin Sl 0.4 Mg/Tab Tab) 0.4 mg SL Q5M PRN PRN Reason: Chest Pain Stop: 10/08/22 22:58 Potassium Chloride (Potassium Chloride 10 Meq Tabcr) 10 meq PO QAM [facility] Stop: 10/09/22 08:59 Last Admin: 09/09/22 07:36 Dose: 10 meq Rosuvastatin Calcium (Rosuvastatin Calcium 10 Mg Tab) 10 mg PO QAM [facility] Stop: 10/09/22 08:59 Last Admin: 09/09/22 07:36 Dose: 10 mg Terazosin HCl (Terazosin Hcl 5 Mg Cap) 5 mg PO HS [facility] Stop: 10/09/22 20:59
[2022-09-09] MEDS: METOPROLOL TARTRATE 25 MG TAB PO SCH (21:32)
[2022-09-09] MEDS: EUCERIN CR 120 GM JAR EXT SCH (21:32)
[2022-09-09] MEDS: TERAZOSIN HCL 5 MG CAP PO SCH (21:33)
--- NOTE | 2022-09-10 02:03 | Electrocardiogram Report ---
Test Reason : Blood Pressure : / mmHG Vent. Rate : 105 BPM Atrial Rate : 089 BPM P-R Int : 000 ms QRS Dur : 148 ms QT Int : 416 ms P-R-T Axes : 000 -38 168 degrees QTc Int : 549 ms Atrial fibrillation with rapid ventricular response with occasional ventricular-paced complexes Left axis deviation Left bundle branch block Abnormal ECG When compared with ECG of 14-AUG-2022 13:46, Vent. rate has increased BY 18 BPM Confirmed by Kel Sim ([id number]) on 09/10/2022 2:03:28 AM Referred By: Sam Thomas Confirmed By:Kel Sim
[2022-09-10 07:03] LABS: Basophils # (auto) 0.02 K/uL (0-0.2); Basophils % (auto) 0.3 %; Eosinophils # (auto) 0.17 K/uL (0-0.50); Eosinophils % (auto) 2.7 %; Hematocrit (blood only) 45.1 % (42.0-52.0); Hemoglobin 14.6 g/dl (14.0-18.0); Immature Granulocytes # (auto) 0.08 K/uL (0.01-0.20); Immature Granulocytes % (auto) 1.3 %; Lymphocytes # (auto) 1.19 K/uL (1.2-3.4); Lymphocytes % (auto) 18.8 %; Mean Corpuscular Hemoglobin 32.2 pg (25.0-34.0); Mean Corpuscular Hgb Conc 32.4 g/dL (32.0-36.0); Mean Corpuscular Volume 99.3 fL (80.0-100.0); Mean Platelet Volume 10.2 fL (9.4-12.4); Monocytes # (auto) 0.59 K/uL (0.11-0.59); Monocytes % (auto) 9.3 %; Neutrophils # (auto) 4.27 K/uL (1.40-6.50); Neutrophils % (auto) 67.6 %; Platelet Count 183 K/uL (130-400); RDW Coefficient of Variation 15.2 % (11.5-14.5); RDW Standard Deviation 55.8 fL (36.4-46.3); Red Blood Count 4.54 M/uL (4.70-6.10); White Blood Count 6.32 K/ul (4.8-10.8)
[2022-09-10 07:32] LABS: BUN Creatinine Ratio 25.4 (10-20); Calcium 8.7 mg/dl (8.5-10.1); Creatinine Clr Calc Pharmacy 46.8 ml/min; Est GFR (African American) 63.3 ml/min; Est GFR (Non-African American) 54.7 ml/min; Magnesium 2.2 mg/dl (1.7-2.4); Phosphorus 3.7 mg/dl (2.5-4.9); Potassium 3.4 mmol/L (3.5-5.1)
[2022-09-10] MEDS ORDERED: POTASSIUM CHLORIDE CRTAB 20 MEQ TABCR PO STA (07:44)
[2022-09-10] MEDS: ROSUVASTATIN CALCIUM 10 MG TAB PO SCH (08:32)
[2022-09-10] MEDS: CYANOCOBALAMIN (B-12) 500 MCG TABLET PO SCH (08:32)
[2022-09-10] MEDS: INSULIN ASPART PER UNIT CHARGE SC SCH ×4 (08:32→20:27)
[2022-09-10] MEDS: APIXABAN 5 MG TABLET PO SCH ×2 (08:32→20:16)
[2022-09-10] MEDS: ASPIRIN 81 MG ECTAB PO SCH (08:32)
[2022-09-10] MEDS: hydrALAZINE HCL 25 MG TAB PO SCH ×2 (08:32→20:16)
[2022-09-10] MEDS: EUCERIN CR 120 GM JAR EXT SCH ×2 (08:33→20:22)
[2022-09-10] MEDS: POTASSIUM CHLORIDE 10 MEQ TABCR PO SCH (08:33)
[2022-09-10] MEDS: METOPROLOL TARTRATE 25 MG TAB PO SCH (08:33)
[2022-09-10] MEDS: FUROSEMIDE 40 MG/4 ML VIAL IV SCH ×2 (08:33→20:20)
--- NOTE | 2022-09-10 11:45 | Cardiology Progress Note ---
Date of Service September 10, 2022 Assessment & Plan (1) Acute on chronic diastolic HF (heart failure): (2) Permanent atrial fibrillation: (3) Tachy-aquiles syndrome: (4) Elevated troponin: Plan IMPRESSION: 77 year old male who initially presented to the ED due to worsening SOB and hypoxia. Patient hypervolemic on exam secondary to dietary indiscretions. Improvement in clinical status with IV Lasix and Lopressor. Patient with known permanent atrial fibrillation/tachybradycardia syndrome with BiV pacemaker. Telemetry revealing permanent A-fib and 2 episodes of nonsustained VT lasting 8 and 12 beats. Mildly elevated high-sensitivity troponin in the setting of demand ischemia. No indication for ACS at this time. PLAN: 1. Acute on chronic diastolic heart failure:. Clinically improving. Continue IV diuretics additional 24 hours. Consider restart SIERRA inhibitor depending on blood pressure response. Note SIERRA inhibitor and spironolactone discontinued during last hospitalization 2. Persistent atrial fibrillation with tachybradycardia syndrome status post biventricular pacemaker. Heart rates elevated on presentation improving though with intermittent tachycardia as well as nonsustained ventricular tachycardia. We will discontinue metoprolol tartrate begin metoprolol succinate at 75 mg twice per day Admission and Anticipated Discharge Date Admission Date: September 08, 2022 Subjective Patient seen and examined, chart, medications, telemetry reviewed. Patient feels substantially improved since hospitalization. Heart rates better controlled with still elevated atrial fibrillation response at times and 1 run of ventricular tachycardia 6 beats in duration. No chest pains or discomfort. Breathing improved. Has manifested diuresis. No fevers or chills. Review of Systems Review of Systems: All systems reviewed & are unremarkable except as noted in Subjective Physical Exam Constitutional: WD/WN, vitals as above Neck: normal visual inspection and trachea midline Respiratory: no respiratory distress and no cough Auscultation: + rales (Minimal); no rhonchi and no wheezes Cardiovascular: Rate/Rhythm: + irregularly irregular Extremities: no edema Chest (Breasts): Chest: + pacemaker Skin: no rashes, warm and dry Psychiatric: A+Ox3, euthymic affect Results & Data Vital Signs (Past 12 Hours) Vital Signs Temp Pulse Pulse Pulse Resp BP Pulse Ox 09/10/22 11:15 09/10/22 08:00 36.7 C 77 18 113/78 96 09/10/22 03:00 36.3 C L 85 18 111/71 97 09/10/22 00:00 121 H O2 Del Method O2 Flow Rate 09/10/22 11:15 Room Air 09/10/22 08:00 Nasal Cannula 2 09/10/22 03:00 Nasal Cannula 2 09/10/22 00:00 Laboratory Results Laboratory Results - last 24 hr 09/09/22 09/09/22 09/10/22 16:40 20:26 05:33 WBC 6.32 RBC 4.54 L Hgb 14.6 Hct 45.1 MCV 99.3 MCH 32.2 MCHC 32.4 RDW Std Deviation 55.8 H RDW Coeff of Mavis 15.2 H Plt Count 183 MPV 10.2 Immature Gran % (Auto) 1.3 Neut % (Auto) 67.6 Lymph % (Auto) 18.8 Sterling % (Auto) 9.3 Eos % (Auto) 2.7 Baso % (Auto) 0.3 Neut # (Auto) 4.27 Lymph # (Auto) 1.19 L Sterling # (Auto) 0.59 Eos # (Auto) 0.17 Baso # (Auto) 0.02 Immature Gran # (Auto) 0.08 Sodium Potassium Chloride Carbon Dioxide Anion Gap BUN Creatinine Est Cr Clr Drug Dosing Est GFR ( Amer) Est GFR (Non-Af Amer) BUN/Creatinine Ratio Glucose POC Glucose 120 H 154 H Calcium Phosphorus Magnesium 09/10/22 09/10/22 09/10/22 05:33 07:23 11:38 WBC RBC Hgb Hct MCV MCH MCHC RDW Std Deviation RDW Coeff of Mavis Plt Count MPV Immature Gran % (Auto) Neut % (Auto) Lymph % (Auto) Sterling % (Auto) Eos % (Auto) Baso % (Auto) Neut # (Auto) Lymph # (Auto) Sterling # (Auto) Eos # (Auto) Baso # (Auto) Immature Gran # (Auto) Sodium 139 Potassium 3.4 L Chloride 97 L Carbon Dioxide 34 H Anion Gap 8 BUN 32 H Creatinine 1.26 Est Cr Clr Drug Dosing 46.8 Est GFR ( Amer) 63.3 Est GFR (Non-Af Amer) 54.7 BUN/Creatinine Ratio 25.4 H Glucose 123 H POC Glucose 122 H 178 H Calcium 8.7 Phosphorus 3.7 Magnesium 2.2
--- NOTE | 2022-09-10 14:02 | Hospitalist Progress Note ---
Date of Service September 10, 2022 Assessment & Plan (1) Acute on chronic diastolic HF (heart failure): Plan: History of chronic diastolic heart failure and admitted with increasing shortness of breath secondary to acute on chronic diastolic CHF Has been getting intravenous Lasix Clinically much better Appreciate cardiology input and recommendation Echo of the heart showed EF of 50 to 55%, septal motion is consistent with conduction abnormality, LV severely dilated, aortic valve sclerosis mild without significant stenosis, mild to moderate aortic regurgitation, there is mild to moderate mitral regurgitation, there is mild tricuspid regurgitation, estimated systolic pulmonary pressure is 43 mmHg, dilated inferior vena cava with reduced collapsibility with sniff indicates an elevated right atrial pressure of 15 mmHg, mild aortic root dilatation and mildly dilated ascending aorta Fluid restriction to 1200 mL and strict intake and output well-maintained Clinically much better but is still having occasional VT without any significant cardiac symptoms Electrolyte imbalance Potassium and magnesium have been supplemented We will maintain the level as advised Will be supplemented and monitored regularly (2) Permanent atrial fibrillation: Plan: Rate is controlled now His metoprolol doses have been increased Has been on Eliquis and aspirin Beta-temo has been increased to control the rate (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 (4) DM type 2 (diabetes mellitus, type 2): Plan: SSI Monitor blood sugar (5) CKD (chronic kidney disease), stage III: Plan: Creatinine seems to be stable at 1.16 We will monitor PRP and electrolytes (6) Sleep apnea: Plan: s/p UPPP (7) Hypertension: (8) Dyslipidemia: Plan: Continue statin Admission and Anticipated Discharge Date Admission Date: September 08, 2022 Subjective 09/09/2022 The patient was seen and examined in telemetry unit He has significant cardiac disease including tachybradycardia syndrome status post pacemaker and persistent atrial fibrillation with diastolic heart failure He has been feeling much better following admission and diuresis Denies any chest pain and no palpitation at rest 09/10/2022 The patient was seen and examined in telemetry unit He has had episodes of V. tach sometime this morning without any significant symptoms He has been feeling otherwise better Denies any palpitation and/or chest pain or shortness of breath Review of Systems Review of Systems: All systems reviewed and are unremarkable except as noted below Physical Exam Physical Exam: Lying in bed comfortably Constitutional: well developed, well nourished, + ill appearing and + obese Eyes: PERRL, conjunctivae normal, anicteric sclerae ENMT: external ear and nose normal, oropharynx normal Neck: trachea midline, no thyromegaly Respiratory: no respiratory distress Auscultation: + diminished lung sounds and + crackles (Bibasilar crackles) Cardiovascular: Rate/Rhythm: + irregularly irregular; not tachycardic Heart Sounds: normal S1, normal S2 and + murmur Extremities: + edema (1+ edema bi laterally) Gastrointestinal (Abdomen): Inspection/Auscultation: + abdomen distended and normal bowel sounds Percussion/Palpation: abdomen soft; abdomen nontender Musculoskeletal: No acute arthritis involving any joint Neurologic: normal touch/pain/proprioception; no focal motor deficits Psychiatric: A+Ox3, euthymic affect Lymphatic: no cervical or axillary lymphadenopathy Results & Data Results & Data Vital Signs (Past 12 Hours) Vital Signs Temp Pulse Pulse Resp BP Pulse Ox O2 Del Method 09/10/22 11:57 36.6 C 78 18 112/72 97 Room Air 09/10/22 11:15 Room Air 09/10/22 08:00 36.7 C 77 18 113/78 96 Nasal Cannula 09/10/22 03:00 36.3 C L 85 18 111/71 97 Nasal Cannula O2 Flow Rate 09/10/22 11:57 09/10/22 11:15 09/10/22 08:00 2 09/10/22 03:00 2 Laboratory Results Short CBC 09/10/22 Range/Units 05:33 WBC 6.32 (4.8-10.8) K/ul Hgb 14.6 (14.0-18.0) g/dl Hct 45.1 (42.0-52.0) % Plt Count 183 (130-400) K/uL BMP 09/10/22 05:33 Sodium 139 Potassium 3.4 L Chloride 97 L Carbon Dioxide 34 H BUN 32 H Creatinine 1.26 Glucose 123 H Calcium 8.7 Medications Administered Current Inpatient Medications Acetaminophen (Acetaminophen 325 Mg Tab) 650 mg PO Q4H PRN PRN Reason: Moderate Pain (Scale 4, 5, 6) Stop: 10/08/22 16:42 Apixaban (Apixaban 5 Mg Tablet) 5 mg PO BID [facility] Stop: 10/08/22 22:59 Last Admin: 09/10/22 08:32 Dose: 5 mg Aspirin (Aspirin 81 Mg Ectab) 81 mg PO DAILY [facility] Stop: 10/09/22 08:59 Last Admin: 09/10/22 08:32 Dose: 81 mg Cyanocobalamin (Cyanocobalamin (B-12) 500 Mcg Tablet) 500 mcg PO QAM [facility] Stop: 10/09/22 08:59 Last Admin: 09/10/22 08:32 Dose: 500 mcg Dextrose (Dextrose 50% 50 Ml Syringe) 25 - 50 ml IV UD PRN; Protocol PRN Reason: Hypoglycemia Protocol Stop: 10/08/22 16:42 Furosemide (Furosemide 40 Mg/4 Ml Vial) 40 mg IV BID [facility] Stop: 10/08/22 23:14 Last Admin: 09/10/22 08:33 Dose: 40 mg Glucagon (Glucagon For Inj 1 Mg Vial) 1 mg SQ UD PRN; Protocol PRN Reason: Hypoglycemia Protocol Stop: 10/08/22 16:42 Glucose (Glucose 10 Tab/Tube) 4 - 8 tab PO UD PRN; Protocol PRN Reason: Hypoglycemia Treatment Stop: 10/08/22 16:42 Glucose (Glucose 40% Gel 15 Gm Tube) 15 - 30 gm PO UD PRN; Protocol PRN Reason: Hypoglycemia Protocol Stop: 10/08/22 16:42 Hydralazine HCl (Hydralazine Hcl 25 Mg Tab) 12.5 mg PO BID [facility] Stop: 10/08/22 22:59 Last Admin: 09/10/22 08:32 Dose: 12.5 mg Insulin Aspart (Insulin Aspart Per Unit) 0 units SC ACHS [facility] Stop: 10/08/22 20:59 Last Admin: 09/10/22 12:26 Dose: 4 units Lidocaine (Lidocaine 5% 1 Patch) 1 patch TD DAILY PRN PRN Reason: Pain Stop: 10/08/22 22:58 Metoprolol Succinate (Metoprolol Succ 50mg Ext Rel Tab) 75 mg PO BID [facility] Stop: 10/10/22 20:59 Miconazole Nitrate (Miconazole Nitrate Powder 85 Gm) 1 appln EXT PRN PRN PRN Reason: Affected Skin Folds Stop: 10/09/22 07:40 Miscellaneous (Carbohydrates For Hypoglycemia ) 15 - 30 gm PO UD PRN PRN Reason: Hypoglycemia Protocol Stop: 10/08/22 16:42 Miscellaneous (Remove Lidoderm Patch) 1 each N/A DAILY@2100 [facility] Stop: 10/09/22 20:59 Last Admin: 09/09/22 21:35 Dose: Not Given Multi-Ingredient Cream (Eucerin Cr 120 Gm Jar) 1 appln EXT BID [facility] Stop: 10/09/22 20:59 Last Admin: 09/10/22 08:33 Dose: 1 appln Nitroglycerin (Nitroglycerin Sl 0.4 Mg/Tab Tab) 0.4 mg SL Q5M PRN PRN Reason: Chest Pain Stop: 10/08/22 22:58 Polyethylene Glycol (Polyethylene (Miralax) 17 Gm Pack) 17 gm PO DAILY [facility] Stop: 10/10/22 13:59 Potassium Chloride (Potassium Chloride 10 Meq Tabcr) 10 meq PO QAM [facility] Stop: 10/09/22 08:59 Last Admin: 09/10/22 08:33 Dose: 10 meq Rosuvastatin Calcium (Rosuvastatin Calcium 10 Mg Tab) 10 mg PO QAM [facility] Stop: 10/09/22 08:59 Last Admin: 09/10/22 08:32 Dose: 10 mg Terazosin HCl (Terazosin Hcl 5 Mg Cap) 5 mg PO HS [facility] Stop: 10/09/22 20:59 Last Admin: 09/09/22 21:33 Dose: 5 mg
[2022-09-10] MEDS: POLYETHYLENE (MIRALAX) 17 GM PACK PO SCH (14:36)
[2022-09-10] MEDS: METOPROLOL SUCC 50MG EXT REL TAB PO SCH (20:17)
[2022-09-10] MEDS: TERAZOSIN HCL 5 MG CAP PO SCH (20:18)
[2022-09-11 06:50] LABS: BUN Creatinine Ratio 41.9 (10-20); Calcium 9.1 mg/dl (8.5-10.1); Creatinine Clr Calc Pharmacy 62.6 ml/min; Est GFR (African American) 91.5 ml/min; Est GFR (Non-African American) 78.9 ml/min; Potassium 3.7 mmol/L (3.5-5.1)
[2022-09-11] MEDS: APIXABAN 5 MG TABLET PO SCH ×2 (08:03→20:24)
[2022-09-11] MEDS: CYANOCOBALAMIN (B-12) 500 MCG TABLET PO SCH (08:03)
[2022-09-11] MEDS: ASPIRIN 81 MG ECTAB PO SCH (08:03)
[2022-09-11] MEDS: ROSUVASTATIN CALCIUM 10 MG TAB PO SCH (08:03)
[2022-09-11] MEDS: POTASSIUM CHLORIDE 10 MEQ TABCR PO SCH (08:03)
[2022-09-11] MEDS: hydrALAZINE HCL 25 MG TAB PO SCH ×2 (08:04→20:24)
[2022-09-11] MEDS: METOPROLOL SUCC 50MG EXT REL TAB PO SCH ×2 (08:04→20:25)
[2022-09-11] MEDS: EUCERIN CR 120 GM JAR EXT SCH ×2 (08:05→20:32)
[2022-09-11] MEDS: POLYETHYLENE (MIRALAX) 17 GM PACK PO SCH (08:20)
[2022-09-11] MEDS: INSULIN ASPART PER UNIT CHARGE SC SCH ×4 (08:29→20:31)
--- NOTE | 2022-09-11 11:50 | Cardiology Progress Note ---
Date of Service September 11, 2022 Assessment & Plan (1) Acute on chronic diastolic HF (heart failure): (2) Permanent atrial fibrillation: (3) Tachy-aquiles syndrome: (4) Elevated troponin: Plan IMPRESSION: 77 year old male who initially presented to the ED due to worsening SOB and hypoxia. Patient hypervolemic on exam secondary to dietary indiscretions. Improvement in clinical status with IV Lasix and Lopressor. Patient with known permanent atrial fibrillation/tachybradycardia syndrome with BiV pacemaker. Telemetry revealing permanent A-fib and 2 episodes of nonsustained VT lasting 8 and 12 beats. Mildly elevated high-sensitivity troponin in the setting of demand ischemia. No indication for ACS at this time. PLAN: 1. Acute on chronic diastolic heart failure:. Clinically improving. We will discontinue IV diuretics today, BUN elevated. Note SIERRA inhibitor and spironolactone discontinued during last hospitalization. Blood pressure still somewhat labile Resume oral diuretics with spironolactone in a.m. Hold terazosin 2. Persistent atrial fibrillation with tachybradycardia syndrome status post biventricular pacemaker. Will increase metoprolol succinate to 100 mg twice per day Admission and Anticipated Discharge Date Admission Date: September 08, 2022 Subjective Patient seen and examined, chart, medications, telemetry reviewed. Feels somewhat woozy on sitting up this morning. Heart rate higher no sustained ventricular tachycardia. Remains in atrial for No chest pains or shortness of breath no productive cough Has manifested diuresis Review of Systems Review of Systems: All systems reviewed & are unremarkable except as noted in Subjective Physical Exam Constitutional: WD/WN, vitals as above Neck: normal visual inspection and trachea midline Respiratory: + tachypneic; no respiratory distress and no cough Auscultation: + rales (Minimal); no rhonchi and no wheezes Cardiovascular: Rate/Rhythm: + tachycardic and + irregularly irregular Vessels: + JVD Extremities: no edema Chest (Breasts): Chest: + pacemaker Skin: no rashes, warm and dry Psychiatric: A+Ox3, euthymic affect Results & Data Vital Signs (Past 12 Hours) Vital Signs Temp Pulse Pulse Resp BP Pulse Ox O2 Del Method 09/11/22 11:30 36.5 C 90 16 112/69 91 Room Air 09/11/22 07:56 36.5 C 83 16 145/87 H 94 Room Air 09/11/22 07:29 106 H 09/11/22 00:00 102 H 09/11/22 03:26 36.6 C 95 H 18 123/86 94 Room Air Laboratory Results Laboratory Results - last 24 hr 09/10/22 09/10/22 09/11/22 16:08 20:14 05:20 Sodium 138 Potassium 3.7 Chloride 97 L Carbon Dioxide 31 Anion Gap 10 BUN 39 H Creatinine 0.93 D Est Cr Clr Drug Dosing 62.6 Est GFR ( Amer) 91.5 Est GFR (Non-Af Amer) 78.9 BUN/Creatinine Ratio 41.9 H Glucose 136 H POC Glucose 134 H 155 H Calcium 9.1 Magnesium 2.0 09/11/22 09/11/22 07:39 11:14 Sodium Potassium Chloride Carbon Dioxide Anion Gap BUN Creatinine Est Cr Clr Drug Dosing Est GFR ( Amer) Est GFR (Non-Af Amer) BUN/Creatinine Ratio Glucose POC Glucose 126 H 268 H Calcium Magnesium
[2022-09-11] MEDS ORDERED: METOPROLOL SUCC 25MG EXT REL TAB PO ONE (11:51)
--- NOTE | 2022-09-11 13:10 | Hospitalist Progress Note ---
Date of Service September 11, 2022 Assessment & Plan (1) Acute on chronic diastolic HF (heart failure): Plan: History of chronic diastolic heart failure and admitted with increasing shortness of breath secondary to acute on chronic diastolic CHF Has been getting intravenous Lasix Clinically much better Appreciate cardiology input and recommendation Echo of the heart showed EF of 50 to 55%, septal motion is consistent with conduction abnormality, LV severely dilated, aortic valve sclerosis mild without significant stenosis, mild to moderate aortic regurgitation, there is mild to moderate mitral regurgitation, there is mild tricuspid regurgitation, estimated systolic pulmonary pressure is 43 mmHg, dilated inferior vena cava with reduced collapsibility with sniff indicates an elevated right atrial pressure of 15 mmHg, mild aortic root dilatation and mildly dilated ascending aorta Fluid restriction to 1200 mL and strict intake and output well-maintained Clinically much better but is still having occasional VT without any significant cardiac symptoms Has been getting diuretics with reasonable amount of diuresis Electrolyte imbalance Potassium and magnesium have been supplemented We will maintain the level as advised Will be supplemented and monitored regularly Monitored regularly and is corrected (2) Permanent atrial fibrillation: Plan: Rate is controlled now His metoprolol doses have been increased Has been on Eliquis and aspirin Beta-temo has been increased to control the rate Has been having tachycardia with tachyarrhythmias and occasional Wheaties Beta-temo has been increased further (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 (4) DM type 2 (diabetes mellitus, type 2): Plan: SSI Monitor blood sugar (5) CKD (chronic kidney disease), stage III: Plan: Creatinine seems to be stable at 1.16 We will monitor PRP and electrolytes Creatinine has been normalized (6) Sleep apnea: Plan: s/p UPPP (7) Hypertension: Plan: Blood pressure is controlled and running on the lower side (8) Dyslipidemia: Plan: Continue statin Admission and Anticipated Discharge Date Admission Date: September 08, 2022 Subjective 09/09/2022 The patient was seen and examined in telemetry unit He has significant cardiac disease including tachybradycardia syndrome status post pacemaker and persistent atrial fibrillation with diastolic heart failure He has been feeling much better following admission and diuresis Denies any chest pain and no palpitation at rest 09/10/2022 The patient was seen and examined in telemetry unit He has had episodes of V. tach sometime this morning without any significant symptoms He has been feeling otherwise better Denies any palpitation and/or chest pain or shortness of breath 09/11/2022 The patient was seen and examined in telemetry unit He has had episodes of V. tach last night again associated with lightheadedness Denies any more chest pain Has been having tachycardia throughout this morning Review of Systems Review of Systems: All systems reviewed and are unremarkable except as noted below Physical Exam Physical Exam: Sitting on a chair without any acute distress Constitutional: well developed, well nourished, + ill appearing and + obese Eyes: PERRL, conjunctivae normal, anicteric sclerae ENMT: external ear and nose normal, oropharynx normal Neck: trachea midline, no thyromegaly Respiratory: no respiratory distress Auscultation: + diminished lung sounds and + crackles (Bibasilar crackles) Cardiovascular: Rate/Rhythm: + irregularly irregular; not tachycardic Heart Sounds: normal S1, normal S2 and + murmur Extremities: + edema (1+ edema bilaterally) Gastrointestinal (Abdomen): Inspection/Auscultation: + abdomen distended and normal bowel sounds Percussion/Palpation: abdomen soft; abdomen nontender Neurologic: normal touch/pain/proprioception and moves all extremities; no focal motor deficits Psychiatric: A+Ox3, euthymic affect Lymphatic: no cervical or axillary lymphadenopathy Results & Data Results & Data Vital Signs (Past 12 Hours) Vital Signs Temp Pulse Pulse Resp BP Pulse Ox O2 Del Method 09/11/22 11:30 36.5 C 90 16 112/69 91 Room Air 09/11/22 07:56 36.5 C 83 16 145/87 H 94 Room Air 09/11/22 07:29 106 H 09/11/22 03:26 36.6 C 95 H 18 123/86 94 Room Air Laboratory Results [facility] 09/11/22 05:20 Sodium 138 Potassium 3.7 Chloride 97 L Carbon Dioxide 31 BUN 39 H Creatinine 0.93 D Glucose 136 H Calcium 9.1 Medications Administered Current Inpatient Medications Acetaminophen (Acetaminophen 325 Mg Tab) 650 mg PO Q4H PRN PRN Reason: Moderate Pain (Scale 4, 5, 6) Stop: 10/08/22 16:42 Apixaban (Apixaban 5 Mg Tablet) 5 mg PO BID [facility] Stop: 10/08/22 22:59 Last Admin: 09/11/22 08:03 Dose: 5 mg Aspirin (Aspirin 81 Mg Ectab) 81 mg PO DAILY [facility] Stop: 10/09/22 08:59 Last Admin: 09/11/22 08:03 Dose: 81 mg Cyanocobalamin (Cyanocobalamin (B-12) 500 Mcg Tablet) 500 mcg PO QAM [facility] Stop: 10/09/22 08:59 Last Admin: 09/11/22 08:03 Dose: 500 mcg Dextrose (Dextrose 50% 50 Ml Syringe) 25 - 50 ml IV UD PRN; Protocol PRN Reason: Hypoglycemia Protocol Stop: 10/08/22 16:42 Furosemide (Furosemide 40 Mg/4 Ml Vial) 40 mg IV BID [facility] Stop: 10/08/22 23:14 Last Admin: 09/10/22 20:20 Dose: 40 mg Glucagon (Glucagon For Inj 1 Mg Vial) 1 mg SQ UD PRN; Protocol PRN Reason: Hypoglycemia Protocol Stop: 10/08/22 16:42 Glucose (Glucose 10 Tab/Tube) 4 - 8 tab PO UD PRN; Protocol PRN Reason: Hypoglycemia Treatment Stop: 10/08/22 16:42 Glucose (Glucose 40% Gel 15 Gm Tube) 15 - 30 gm PO UD PRN; Protocol PRN Reason: Hypoglycemia Protocol Stop: 10/08/22 16:42 Hydralazine HCl (Hydralazine Hcl 25 Mg Tab) 12.5 mg PO BID [facility] Stop: 10/08/22 22:59 Last Admin: 09/11/22 08:04 Dose: 12.5 mg Insulin Aspart (Insulin Aspart Per Unit) 0 units SC ACHS [facility] Stop: 10/08/22 20:59 Last Admin: 09/11/22 12:29 Dose: 7 units Lidocaine (Lidocaine 5% 1 Patch) 1 patch TD DAILY PRN PRN Reason: Pain Stop: 10/08/22 22:58 Metoprolol Succinate (Metoprolol Succ 50mg Ext Rel Tab) 100 mg PO BID [facility] Stop: 10/11/22 20:59 Miconazole Nitrate (Miconazole Nitrate Powder 85 Gm) 1 appln EXT PRN PRN PRN Reason: Affected Skin Folds Stop: 10/09/22 07:40 Miscellaneous (Carbohydrates For Hypoglycemia ) 15 - 30 gm PO UD PRN PRN Reason: Hypoglycemia Protocol Stop: 10/08/22 16:42 Miscellaneous (Remove Lidoderm Patch) 1 each N/A DAILY@2100 [facility] Stop: 10/09/22 20:59 Last Admin: 09/10/22 20:18 Dose: Not Given Multi-Ingredient Cream (Eucerin Cr 120 Gm Jar) 1 appln EXT BID [facility] Stop: 10/09/22 20:59 Last Admin: 09/11/22 08:05 Dose: 1 appln Nitroglycerin (Nitroglycerin Sl 0.4 Mg/Tab Tab) 0.4 mg SL Q5M PRN PRN Reason: Chest Pain Stop: 10/08/22 22:58 Polyethylene Glycol (Polyethylene (Miralax) 17 Gm Pack) 17 gm PO DAILY [facility] Stop: 10/10/22 13:59 Last Admin: 09/11/22 08:20 Dose: 17 gm Potassium Chloride (Potassium Chloride 10 Meq Tabcr) 10 meq PO QAM [facility] Stop: 10/09/22 08:59 Last Admin: 09/11/22 08:03 Dose: 10 meq Rosuvastatin Calcium (Rosuvastatin Calcium 10 Mg Tab) 10 mg PO QAM [facility] Stop: 10/09/22 08:59 Last Admin: 09/11/22 08:03 Dose: 10 mg Terazosin HCl (Terazosin Hcl 5 Mg Cap) 5 mg PO HS [facility] Stop: 10/09/22 20:59 Last Admin: 09/10/22 20:18 Dose: 5 mg
[2022-09-12 07:03] LABS: BUN Creatinine Ratio 36.2 (10-20); Calcium 9.4 mg/dl (8.5-10.1); Est GFR (Non-African American) 68.1 ml/min; Potassium 3.9 mmol/L (3.5-5.1)
[2022-09-12] MEDS: ROSUVASTATIN CALCIUM 10 MG TAB PO SCH (08:28)
[2022-09-12] MEDS: APIXABAN 5 MG TABLET PO SCH ×2 (08:28→20:31)
[2022-09-12] MEDS: INSULIN ASPART PER UNIT CHARGE SC SCH ×4 (08:28→20:36)
[2022-09-12] MEDS: METOPROLOL SUCC 50MG EXT REL TAB PO SCH ×2 (08:28→20:30)
[2022-09-12] MEDS: POLYETHYLENE (MIRALAX) 17 GM PACK PO SCH (08:28)
[2022-09-12] MEDS: hydrALAZINE HCL 25 MG TAB PO SCH ×2 (08:29→20:30)
[2022-09-12] MEDS: POTASSIUM CHLORIDE 10 MEQ TABCR PO SCH (08:29)
[2022-09-12] MEDS: ASPIRIN 81 MG ECTAB PO SCH (08:30)
[2022-09-12] MEDS: CYANOCOBALAMIN (B-12) 500 MCG TABLET PO SCH (08:30)
[2022-09-12] MEDS: EUCERIN CR 120 GM JAR EXT SCH ×2 (08:31→20:34)
--- NOTE | 2022-09-12 11:42 | Cardiology Progress Note ---
Date of Service September 12, 2022 Assessment & Plan (1) Acute on chronic diastolic HF (heart failure): (2) Permanent atrial fibrillation: (3) Tachy-aquiles syndrome: (4) Elevated troponin: Plan IMPRESSION: 77 year old male who initially presented to the ED due to worsening SOB and hypoxia. Patient hypervolemic on exam secondary to dietary indiscretions. Improvement in clinical status with IV Lasix and Lopressor. Patient with known permanent atrial fibrillation/tachybradycardia syndrome with BiV pacemaker. Telemetry revealing permanent A-fib and 2 episodes of nonsustained VT lasting 8 and 12 beats. Mildly elevated high-sensitivity troponin in the setting of demand ischemia. No indication for ACS at this time. PLAN: 1. Acute on chronic diastolic heart failure with preserved ejection fraction. Clinically improving. Medications now transitioned to oral with greater than 4 kg weight loss. Continue to hold terazosin medication previously being used for hypertension 2. Persistent atrial fibrillation with tachybradycardia syndrome status post biventricular pacemaker. 3. Atrial fibrillation with elevated ventricular sponsor rate, brief nonsustained VT. Rhythm improving with increased beta-temo would continue metoprolol succinate at 100 mg twice per day Admission and Anticipated Discharge Date Admission Date: September 08, 2022 Subjective Patient seen and examined, chart, medications, telemetry reviewed. Clinically appears improved today. Less dyspneic. Minimal arrhythmias with heart rate much better controlled 1 5 beat run of ventricular tachycardia No productive cough. Lower extremity edema improved Physical Exam Constitutional: WD/WN, vitals as above Neck: normal visual inspection and trachea midline Respiratory: + tachypneic; no respiratory distress and no cough Auscultation: + rales (Minimal); no rhonchi and no wheezes Cardiovascular: Rate/Rhythm: + tachycardic and + irregularly irregular Vessels: + JVD Extremities: no edema Chest (Breasts): Chest: + pacemaker Skin: no rashes, warm and dry Psychiatric: A+Ox3, euthymic affect Results & Data Vital Signs (Past 12 Hours) Vital Signs Temp Pulse Resp BP Pulse Ox O2 Del Method O2 Flow Rate 09/12/22 11:31 36.7 C 72 15 111/67 95 Room Air 09/12/22 09:51 Nasal Cannula 2 09/12/22 08:00 Nasal Cannula 2 09/12/22 07:35 36.3 C L 60 18 127/82 96 Room Air 09/12/22 03:06 36.3 C L 75 17 136/85 98 Nasal Cannula 2 Laboratory Results Laboratory Results - last 24 hr 09/11/22 09/11/22 09/12/22 16:01 20:22 05:29 Sodium 139 Potassium 3.9 Chloride 97 L Carbon Dioxide 34 H Anion Gap 8 BUN 38 H Creatinine 1.05 Est Cr Clr Drug Dosing 55.0 Est GFR ( Amer) 79.0 Est GFR (Non-Af Amer) 68.1 BUN/Creatinine Ratio 36.2 H Glucose 145 H POC Glucose 177 H 153 H Calcium 9.4 Magnesium 2.0 09/12/22 09/12/22 07:55 11:14 Sodium Potassium Chloride Carbon Dioxide Anion Gap BUN Creatinine Est Cr Clr Drug Dosing Est GFR ( Amer) Est GFR (Non-Af Amer) BUN/Creatinine Ratio Glucose POC Glucose 145 H 221 H Calcium Magnesium
--- NOTE | 2022-09-12 14:40 | Hospitalist Progress Note ---
Date of Service September 12, 2022 Assessment & Plan (1) Acute on chronic diastolic HF (heart failure): Plan: History of chronic diastolic heart failure and admitted with increasing shortness of breath secondary to acute on chronic diastolic CHF Has been getting intravenous Lasix Clinically much better Appreciate cardiology input and recommendation Echo of the heart showed EF of 50 to 55%, septal motion is consistent with conduction abnormality, LV severely dilated, aortic valve sclerosis mild without significant stenosis, mild to moderate aortic regurgitation, there is mild to moderate mitral regurgitation, there is mild tricuspid regurgitation, estimated systolic pulmonary pressure is 43 mmHg, dilated inferior vena cava with reduced collapsibility with sniff indicates an elevated right atrial pressure of 15 mmHg, mild aortic root dilatation and mildly dilated ascending aorta Fluid restriction to 1200 mL and strict intake and output well-maintained Clinically much better but is still having occasional VT without any significant cardiac symptoms Has been getting diuretics with reasonable amount of diuresis Clinically better and has been improving day by day Electrolyte imbalance Potassium and magnesium have been supplemented We will maintain the level as advised Will be supplemented and monitored regularly Monitored regularly and is corrected (2) Permanent atrial fibrillation: Plan: Rate is controlled now His metoprolol doses have been increased Has been on Eliquis and aspirin Beta-temo has been increased to control the rate Has been having tachycardia with tachyarrhythmias and occasional Wheaties Beta-temo has been increased further Rate seems to be under control (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 (4) DM type 2 (diabetes mellitus, type 2): Plan: SSI Monitor blood sugar (5) CKD (chronic kidney disease), stage III: Plan: Creatinine seems to be stable at 1.16 We will monitor PRP and electrolytes Creatinine has been normalized (6) Sleep apnea: Plan: s/p UPPP (7) Hypertension: Plan: Blood pressure is controlled and running on the lower side (8) Dyslipidemia: Plan: Continue statin Plan Awaiting placement Admission and Anticipated Discharge Date Admission Date: September 08, 2022 Subjective 09/09/2022 The patient was seen and examined in telemetry unit He has significant cardiac disease including tachybradycardia syndrome status post pacemaker and persistent atrial fibrillation with diastolic heart failure He has been feeling much better following admission and diuresis Denies any chest pain and no palpitation at rest 09/10/2022 The patient was seen and examined in telemetry unit He has had episodes of V. tach sometime this morning without any significant symptoms He has been feeling otherwise better Denies any palpitation and/or chest pain or shortness of breath 09/11/2022 The patient was seen and examined in telemetry unit He has had episodes of V. tach last night again associated with lightheadedness Denies any more chest pain Has been having tachycardia throughout this morning 09/12/2022 The patient was seen and examined in telemetry unit He has been feeling a little better today Denies any palpitation, chest pain or shortness of breath at rest Leg swelling has improved a lot Review of Systems Review of Systems: All systems reviewed and are unremarkable except as noted below Physical Exam Physical Exam: Sitting on a chair without any acute distress Constitutional: well developed, well nourished, + ill appearing and + obese Eyes: PERRL, conjunctivae normal, anicteric sclerae ENMT: external ear and nose normal, oropharynx normal Neck: trachea midline, no thyromegaly Respiratory: no respiratory distress Auscultation: + diminished lung sounds and + crackles (Bibasilar crackles) Cardiovascular: Rate/Rhythm: + irregularly irregular; not tachycardic Heart Sounds: normal S1, normal S2 and + murmur Extremities: + edema (1+ edema bilaterally) Gastrointestinal (Abdomen): Inspection/Auscultation: + abdomen distended and normal bowel sounds Percussion/Palpation: abdomen soft; abdomen nontender Musculoskeletal: No acute arthritis involving any joint Neurologic: normal touch/pain/proprioception and moves all extremities; no focal motor deficits Psychiatric: A+Ox3, euthymic affect Lymphatic: no cervical or axillary lymphadenopathy Results & Data Results & Data Vital Signs (Past 12 Hours) Vital Signs Temp Pulse Resp BP Pulse Ox O2 Del Method O2 Flow Rate 09/12/22 11:31 36.7 C 72 15 111/67 95 Room Air 09/12/22 09:51 Nasal Cannula 2 09/12/22 08:00 Nasal Cannula 2 09/12/22 07:35 36.3 C L 60 18 127/82 96 Room Air 09/12/22 03:06 36.3 C L 75 17 136/85 98 Nasal Cannula 2 Laboratory Results BMP 09/12/22 05:29 Sodium 139 Potassium 3.9 Chloride 97 L Carbon Dioxide 34 H BUN 38 H Creatinine 1.05 Glucose 145 H Calcium 9.4 Medications Administered Current Inpatient Medications Acetaminophen (Acetaminophen 325 Mg Tab) 650 mg PO Q4H PRN PRN Reason: Moderate Pain (Scale 4, 5, 6) Stop: 10/08/22 16:42 Apixaban (Apixaban 5 Mg Tablet) 5 mg PO BID [facility] Stop: 10/08/22 22:59 Last Admin: 09/12/22 08:28 Dose: 5 mg Aspirin (Aspirin 81 Mg Ectab) 81 mg PO DAILY [facility] Stop: 10/09/22 08:59 Last Admin: 09/12/22 08:30 Dose: 81 mg Cyanocobalamin (Cyanocobalamin (B-12) 500 Mcg Tablet) 500 mcg PO QAM [facility] Stop: 10/09/22 08:59 Last Admin: 09/12/22 08:30 Dose: 500 mcg Dextrose (Dextrose 50% 50 Ml Syringe) 25 - 50 ml IV UD PRN; Protocol PRN Reason: Hypoglycemia Protocol Stop: 10/08/22 16:42 Furosemide (Furosemide 40 Mg/4 Ml Vial) 40 mg IV BID [facility] Stop: 10/08/22 23:14 Last Admin: 09/10/22 20:20 Dose: 40 mg Glucagon (Glucagon For Inj 1 Mg Vial) 1 mg SQ UD PRN; Protocol PRN Reason: Hypoglycemia Protocol Stop: 10/08/22 16:42 Glucose (Glucose 10 Tab/Tube) 4 - 8 tab PO UD PRN; Protocol PRN Reason: Hypoglycemia Treatment Stop: 10/08/22 16:42 Glucose (Glucose 40% Gel 15 Gm Tube) 15 - 30 gm PO UD PRN; Protocol PRN Reason: Hypoglycemia Protocol Stop: 10/08/22 16:42 Hydralazine HCl (Hydralazine Hcl 25 Mg Tab) 12.5 mg PO BID [facility] Stop: 10/08/22 22:59 Last Admin: 09/12/22 08:29 Dose: 12.5 mg Insulin Aspart (Insulin Aspart Per Unit) 0 units SC ACHS [facility] Stop: 10/08/22 20:59 Last Admin: 09/12/22 11:59 Dose: 6 units Lidocaine (Lidocaine 5% 1 Patch) 1 patch TD DAILY PRN PRN Reason: Pain Stop: 10/08/22 22:58 Metoprolol Succinate (Metoprolol Succ 50mg Ext Rel Tab) 100 mg PO BID [facility] Stop: 10/11/22 20:59 Last Admin: 09/12/22 08:28 Dose: 100 mg Miconazole Nitrate (Miconazole Nitrate Powder 85 Gm) 1 appln EXT PRN PRN PRN Reason: Affected Skin Folds Stop: 10/09/22 07:40 Miscellaneous (Carbohydrates For Hypoglycemia ) 15 - 30 gm PO UD PRN PRN Reason: Hypoglycemia Protocol Stop: 10/08/22 16:42 Miscellaneous (Remove Lidoderm Patch) 1 each N/A DAILY@2100 [facility] Stop: 10/09/22 20:59 Last Admin: 09/11/22 20:26 Dose: Not Given Multi-Ingredient Cream (Eucerin Cr 120 Gm Jar) 1 appln EXT BID [facility] Stop: 10/09/22 20:59 Last Admin: 09/12/22 08:31 Dose: 1 appln Nitroglycerin (Nitroglycerin Sl 0.4 Mg/Tab Tab) 0.4 mg SL Q5M PRN PRN Reason: Chest Pain Stop: 10/08/22 22:58 Polyethylene Glycol (Polyethylene (Miralax) 17 Gm Pack) 17 gm PO DAILY [facility] Stop: 10/10/22 13:59 Last Admin: 09/12/22 08:28 Dose: 17 gm Potassium Chloride (Potassium Chloride 10 Meq Tabcr) 10 meq PO QAM [facility] Stop: 10/09/22 08:59 Last Admin: 09/12/22 08:29 Dose: 10 meq Rosuvastatin Calcium (Rosuvastatin Calcium 10 Mg Tab) 10 mg PO QAM [facility] Stop: 10/09/22 08:59 Last Admin: 09/12/22 08:28 Dose: 10 mg Terazosin HCl (Terazosin Hcl 5 Mg Cap) 5 mg PO HS [facility] Stop: 10/09/22 20:59 Last Admin: 09/10/22 20:18 Dose: 5 mg
[2022-09-13 07:07] LABS: Anion Gap 7 (3-11); BUN Creatinine Ratio 37.9 (10-20); Blood Urea Nitrogen 39 mg/dl (6-23); Calcium 9.5 mg/dl (8.5-10.1); Carbon Dioxide 34 mmol/L (21-32); Chloride 97 mmol/L (98-107); Est GFR (African American) 80.8 ml/min; Est GFR (Non-African American) 69.7 ml/min; Glucose 139 mg/dl (70-99(Fasting)); Magnesium 2.1 mg/dl (1.7-2.4); Sodium 138 mmol/L (136-145)
[2022-09-13] MEDS: APIXABAN 5 MG TABLET PO SCH ×2 (08:23→21:34)
[2022-09-13] MEDS: ASPIRIN 81 MG ECTAB PO SCH (08:23)
[2022-09-13] MEDS: hydrALAZINE HCL 25 MG TAB PO SCH ×2 (08:23→21:35)
[2022-09-13] MEDS: CYANOCOBALAMIN (B-12) 500 MCG TABLET PO SCH (08:23)
[2022-09-13] MEDS: ROSUVASTATIN CALCIUM 10 MG TAB PO SCH (08:23)
[2022-09-13] MEDS: METOPROLOL SUCC 50MG EXT REL TAB PO SCH ×2 (08:23→21:35)
[2022-09-13] MEDS: POTASSIUM CHLORIDE 10 MEQ TABCR PO SCH (08:23)
[2022-09-13] MEDS: POLYETHYLENE (MIRALAX) 17 GM PACK PO SCH (08:24)
[2022-09-13] MEDS: EUCERIN CR 120 GM JAR EXT SCH ×2 (08:24→21:36)
[2022-09-13] MEDS: INSULIN ASPART PER UNIT CHARGE SC SCH ×4 (08:28→21:38)
--- NOTE | 2022-09-13 11:01 | Cardiology Progress Note ---
Date of Service September 13, 2022 Assessment & Plan (1) Acute on chronic diastolic HF (heart failure): (2) Permanent atrial fibrillation: (3) Tachy-aquiles syndrome: (4) Elevated troponin: Plan IMPRESSION: 77 year old male who initially presented to the ED due to worsening SOB and hypoxia. Patient hypervolemic on exam secondary to dietary indiscretions. Improvement in clinical status with IV Lasix and Lopressor. Patient with known permanent atrial fibrillation/tachybradycardia syndrome with BiV pacemaker. Telemetry revealing permanent A-fib and 2 episodes of nonsustained VT lasting 8 and 12 beats. Mildly elevated high-sensitivity troponin in the setting of demand ischemia. No indication for ACS at this time. PLAN: 1. Acute on chronic diastolic heart failure with preserved ejection fraction. Clinically improving. -Transition to oral furosemide 40 mg (home dose) -Resume spironolactone 12.5 mg daily. -stop potassium. 2. Persistent atrial fibrillation with tachybradycardia syndrome status post biventricular pacemaker and non sustained VT -continue higher dose metoprolol 100 mg BID on discharge Ongoing weakness reported by patient. Agreeable to rehab and likely would benefit. Case discussed with Dr. Angela. Admission and Anticipated Discharge Date Admission Date: September 08, 2022 Supervising Physician Co-Signing Physician Notes Patient seen and examined personally. Evaluation as above. Has responded to IV now oral diuretics. Arrhythmias under better control with increased dose of metoprolol succinate. Agree with plans for rehab and increased monitor with activities Subjective Patient resting in bed comfortably. Notes weakness in his legs. Denies chest pain. Reports dyspnea improving. No orthopnea. Edema improved. Cough improved. Review of Systems Review of Systems: All systems reviewed & are unremarkable except as noted in HPI & below Physical Exam Constitutional: WD/WN, vitals as above Neck: normal visual inspection and trachea midline Respiratory: + tachypneic; no respiratory distress and no cough Auscultation: + rales (Minimal); no rhonchi and no wheezes Cardiovascular: Rate/Rhythm: + tachycardic and + irregularly irregular Vessels: + JVD Extremities: no edema Chest (Breasts): Chest: + pacemaker Skin: no rashes, warm and dry Psychiatric: A+Ox3, euthymic affect Results & Data Vital Signs (Past 12 Hours) Vital Signs Temp Pulse Pulse Resp BP Pulse Ox O2 Del Method 09/13/22 08:00 Nasal Cannula 09/13/22 08:00 36.3 C L 90 19 146/86 H 98 Nasal Cannula 09/13/22 04:02 36.8 C 92 H 16 155/83 H 98 Room Air 09/13/22 00:00 94 H 09/12/22 23:33 36.4 C L 85 16 124/79 95 Nasal Cannula O2 Flow Rate 09/13/22 08:00 09/13/22 08:00 2.0 09/13/22 04:02 09/13/22 00:00 09/12/22 23:33 3 Laboratory Results Comprehensive Metabolic Panel 09/13/22 09/13/22 Range/Units 05:45 07:35 Sodium 138 (136-145) mmol/L Potassium TNP 4.1 Chloride 97 L (98-107) mmol/L Carbon Dioxide 34 H (21-32) mmol/L BUN 39 H (6-23) mg/dl Creatinine 1.03 (0.6-1.4) mg/dl Glucose 139 H (70-99(Fasting)) mg/dl Calcium 9.5 (8.5-10.1) mg/dl Intake and Output 09/12/22 09/13/22 09/13/22 22:59 06:59 14:59 Intake Total 700 / 700 Output Total 650 / 651 1000 / 1000 Balance 50 / 49 -1000 / -1000 Intake: Oral 700 / 700 Output: Urine 1000 / 1000 Urine Amount (Catheter) 650 / 650 External 650 / 650 Diagnostic Findings telemetry reviewed: Afib with rates ranging 90-100 bmp, intermittent pacing. No recurrent VT Medications Administered Current Inpatient Medications Acetaminophen (Acetaminophen 325 Mg Tab) 650 mg PO Q4H PRN PRN Reason: Moderate Pain (Scale 4, 5, 6) Stop: 10/08/22 16:42 Apixaban (Apixaban 5 Mg Tablet) 5 mg PO BID [facility] [place] Stop: 10/08/22 22:59 Last Admin: 09/13/22 08:23 Dose: 5 mg Aspirin (Aspirin 81 Mg Ectab) 81 mg PO DAILY [facility] [place] Stop: 10/09/22 08:59 Last Admin: 09/13/22 08:23 Dose: 81 mg Cyanocobalamin (Cyanocobalamin (B-12) 500 Mcg Tablet) 500 mcg PO QAM [facility] [place] Stop: 10/09/22 08:59 Last Admin: 03/21/23 08:23 Dose: 500 mcg Dextrose (Dextrose 50% 50 Ml Syringe) 25 - 50 ml IV UD PRN; Protocol PRN Reason: Hypoglycemia Protocol Stop: 10/08/22 16:42 Furosemide (Furosemide 40 Mg Tab) 40 mg PO QAM [facility] [place] Stop: 10/13/22 10:59 Glucagon (Glucagon For Inj 1 Mg Vial) 1 mg SQ UD PRN; Protocol PRN Reason: Hypoglycemia Protocol Stop: 10/08/22 16:42 Glucose (Glucose 10 Tab/Tube) 4 - 8 tab PO UD PRN; Protocol PRN Reason: Hypoglycemia Treatment Stop: 10/08/22 16:42 Glucose (Glucose 40% Gel 15 Gm Tube) 15 - 30 gm PO UD PRN; Protocol PRN Reason: Hypoglycemia Protocol Stop: 10/08/22 16:42 Hydralazine HCl (Hydralazine Hcl 25 Mg Tab) 12.5 mg PO BID [facility] Stop: 10/08/22 22:59 Last Admin: 09/13/22 08:23 Dose: 12.5 mg Insulin Aspart (Insulin Aspart Per Unit) 0 units SC ACHS [facility] Stop: 10/08/22 20:59 Last Admin: 09/13/22 08:28 Dose: 5 units Lidocaine (Lidocaine 5% 1 Patch) 1 patch TD DAILY PRN PRN Reason: Pain Stop: 10/08/22 22:58 Metoprolol Succinate (Metoprolol Succ 50mg Ext Rel Tab) 100 mg PO BID [facility] Stop: 10/11/22 20:59 Last Admin: 09/13/22 08:23 Dose: 100 mg Miconazole Nitrate (Miconazole Nitrate Powder 85 Gm) 1 appln EXT PRN PRN PRN Reason: Affected Skin Folds Stop: 10/09/22 07:40 Miscellaneous (Carbohydrates For Hypoglycemia ) 15 - 30 gm PO UD PRN PRN Reason: Hypoglycemia Protocol Stop: 10/08/22 16:42 Miscellaneous (Remove Lidoderm Patch) 1 each N/A DAILY@2100 [facility] Stop: 10/09/22 20:59 Last Admin: 09/12/22 20:31 Dose: Not Given Multi-Ingredient Cream (Eucerin Cr 120 Gm Jar) 1 appln EXT BID [facility] [place] Stop: 10/09/22 20:59 Last Admin: 09/13/22 08:24 Dose: 1 appln Nitroglycerin (Nitroglycerin Sl 0.4 Mg/Tab Tab) 0.4 mg SL Q5M PRN PRN Reason: Chest Pain Stop: 10/08/22 22:58 Polyethylene Glycol (Polyethylene (Miralax) 17 Gm Pack) 17 gm PO DAILY [facility] Stop: 10/10/22 13:59 Last Admin: 09/13/22 08:24 Dose: 17 gm Rosuvastatin Calcium (Rosuvastatin Calcium 10 Mg Tab) 10 mg PO QAM [facility] Stop: 10/09/22 08:59 Last Admin: 09/13/22 08:23 Dose: 10 mg Spironolactone (Spironolactone 12.5 Mg Tab) 12.5 mg PO DAILY [facility] Stop: 10/13/22 10:59 Terazosin HCl (Terazosin Hcl 5 Mg Cap) 5 mg PO HS [facility] Stop: 10/09/22 20:59 Last Admin: 09/10/22 20:18 Dose: 5 mg
[2022-09-13] MEDS: FUROSEMIDE 40 MG TAB PO SCH (11:58)
[2022-09-13] MEDS: SPIRONOLACTONE 12.5 MG TAB PO SCH (12:38)
--- NOTE | 2022-09-13 15:22 | Hospitalist Progress Note ---
Date of Service September 13, 2022 Assessment & Plan (1) Acute on chronic diastolic HF (heart failure): Plan: History of chronic diastolic heart failure and admitted with increasing shortness of breath secondary to acute on chronic diastolic CHF Has been getting intravenous Lasix Clinically much better Appreciate cardiology input and recommendation Echo of the heart showed EF of 50 to 55%, septal motion is consistent with conduction abnormality, LV severely dilated, aortic valve sclerosis mild without significant stenosis, mild to moderate aortic regurgitation, there is mild to moderate mitral regurgitation, there is mild tricuspid regurgitation, estimated systolic pulmonary pressure is 43 mmHg, dilated inferior vena cava with reduced collapsibility with sniff indicates an elevated right atrial pressure of 15 mmHg, mild aortic root dilatation and mildly dilated ascending aorta Fluid restriction to 1200 mL and strict intake and output well-maintained Clinically much better but is still having occasional VT without any significant cardiac symptoms Has been getting diuretics with reasonable amount of diuresis Clinically better and has been improving day by day Clinically better without any significant symptoms except weakness Has had cumulative fluid loss of 5210 mL-continue diuresis We will get PT and OT evaluation prior to discharge Electrolyte imbalance Potassium and magnesium have been supplemented We will maintain the level as advised Will be supplemented and monitored regularly Monitored regularly and is corrected Monitor electrolytes and correct if needed (2) Permanent atrial fibrillation: Plan: Rate is controlled now His metoprolol doses have been increased Has been on Eliquis and aspirin Beta-temo has been increased to control the rate Has been having tachycardia with tachyarrhythmias and occasional Wheaties Beta-temo has been increased further Rate seems to be under control Rate is controlled and no more V. 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 (4) DM type 2 (diabetes mellitus, type 2): Plan: SSI Monitor blood sugar (5) CKD (chronic kidney disease), stage III: Plan: Creatinine seems to be stable at 1.16 We will monitor PRP and electrolytes Creatinine has been normalized (6) Sleep apnea: Plan: s/p UPPP (7) Hypertension: Plan: Blood pressure is controlled and running on the lower side (8) Dyslipidemia: Plan: Continue statin Plan Awaiting placement Admission and Anticipated Discharge Date Admission Date: September 08, 2022 Subjective 09/09/2022 The patient was seen and examined in telemetry unit He has significant cardiac disease including tachybradycardia syndrome status post pacemaker and persistent atrial fibrillation with diastolic heart failure He has been feeling much better following admission and diuresis Denies any chest pain and no palpitation at rest 09/10/2022 The patient was seen and examined in telemetry unit He has had episodes of V. tach sometime this morning without any significant symptoms He has been feeling otherwise better Denies any palpitation and/or chest pain or shortness of breath 09/11/2022 The patient was seen and examined in telemetry unit He has had episodes of V. tach last night again associated with lightheadedness Denies any more chest pain Has been having tachycardia throughout this morning 09/12/2022 The patient was seen and examined in telemetry unit He has been feeling a little better today Denies any palpitation, chest pain or shortness of breath at rest Leg swelling has improved a lot 09/13/2022 The patient was seen and examined in telemetry unit He has been feeling much better but remains extremely weak and lethargic Heart rate is a stable and the blood pressure is controlled We will get PT and OT evaluation prior to discharge Review of Systems Review of Systems: All systems reviewed and are unremarkable except as noted below Physical Exam Physical Exam: Sitting on a chair without any acute distress Constitutional: well developed, well nourished, + ill appearing and + obese Eyes: PERRL, conjunctivae normal, anicteric sclerae ENMT: external ear and nose normal, oropharynx normal Neck: trachea midline, no thyromegaly Respiratory: no respiratory distress Auscultation: + diminished lung sounds and + crackles (Bibasilar crackles) Cardiovascular: Rate/Rhythm: + irregularly irregular; not tachycardic Heart Sounds: normal S1, normal S2 and + murmur Extremities: + edema (1+ edema bilaterally) Gastrointestinal (Abdomen): Inspection/Auscultation: + abdomen distended and normal bowel sounds Percussion/Palpation: abdomen soft; abdomen nontender Musculoskeletal: No acute arthritis involving any joint Neurologic: normal touch/pain/proprioception and moves all extremities; no focal motor deficits Psychiatric: A+Ox3, euthymic affect Lymphatic: no cervical or axillary lymphadenopathy Results & Data Results & Data Vital Signs (Past 12 Hours) Vital Signs Temp Pulse Resp BP Pulse Ox O2 Del Method O2 Flow Rate 09/13/22 13:15 97 Room Air 09/13/22 11:34 36.7 C 74 19 130/77 97 Nasal Cannula 2.0 09/13/22 08:00 Nasal Cannula 09/13/22 08:00 36.3 C L 90 19 146/86 H 98 Nasal Cannula 2.0 09/13/22 04:02 36.8 C 92 H 16 155/83 H 98 Room Air Laboratory Results BMP 09/13/22 09/13/22 05:45 07:35 Sodium 138 Potassium TNP 4.1 Chloride 97 L Carbon Dioxide 34 H BUN 39 H Creatinine 1.03 Glucose 139 H Calcium 9.5 Medications Administered Current Inpatient Medications Acetaminophen (Acetaminophen 325 Mg Tab) 650 mg PO Q4H PRN PRN Reason: Moderate Pain (Scale 4, 5, 6) Stop: 10/08/22 16:42 Apixaban (Apixaban 5 Mg Tablet) 5 mg PO BID [facility] Stop: 10/08/22 22:59 Last Admin: 09/13/22 08:23 Dose: 5 mg Aspirin (Aspirin 81 Mg Ectab) 81 mg PO DAILY [facility] Stop: 10/09/22 08:59 Last Admin: 09/13/22 08:23 Dose: 81 mg Cyanocobalamin (Cyanocobalamin (B-12) 500 Mcg Tablet) 500 mcg PO QAM [facility] Stop: 10/09/22 08:59 Last Admin: 09/13/22 08:23 Dose: 500 mcg Dextrose (Dextrose 50% 50 Ml Syringe) 25 - 50 ml IV UD PRN; Protocol PRN Reason: Hypoglycemia Protocol Stop: 10/08/22 16:42 Furosemide (Furosemide 40 Mg Tab) 40 mg PO QAM [facility] Stop: 10/13/22 10:59 Last Admin: 09/13/22 11:58 Dose: 40 mg Glucagon (Glucagon For Inj 1 Mg Vial) 1 mg SQ UD PRN; Protocol PRN Reason: Hypoglycemia Protocol Stop: 10/08/22 16:42 Glucose (Glucose 10 Tab/Tube) 4 - 8 tab PO UD PRN; Protocol PRN Reason: Hypoglycemia Treatment Stop: 10/08/22 16:42 Glucose (Glucose 40% Gel 15 Gm Tube) 15 - 30 gm PO UD PRN; Protocol PRN Reason: Hypoglycemia Protocol Stop: 10/08/22 16:42 Hydralazine HCl (Hydralazine Hcl 25 Mg Tab) 12.5 mg PO BID [facility] Stop: 10/08/22 22:59 Last Admin: 09/13/22 08:23 Dose: 12.5 mg Insulin Aspart (Insulin Aspart Per Unit) 0 units SC ACHS [facility] Stop: 10/08/22 20:59 Last Admin: 09/13/22 12:03 Dose: 4 units Lidocaine (Lidocaine 5% 1 Patch) 1 patch TD DAILY PRN PRN Reason: Pain Stop: 10/08/22 22:58 Metoprolol Succinate (Metoprolol Succ 50mg Ext Rel Tab) 100 mg PO BID [facility] Stop: 10/11/22 20:59 Last Admin: 09/13/22 08:23 Dose: 100 mg Miconazole Nitrate (Miconazole Nitrate Powder 85 Gm) 1 appln EXT PRN PRN PRN Reason: Affected Skin Folds Stop: 10/09/22 07:40 Miscellaneous (Carbohydrates For Hypoglycemia ) 15 - 30 gm PO UD PRN PRN Reason: Hypoglycemia Protocol Stop: 10/08/22 16:42 Miscellaneous (Remove Lidoderm Patch) 1 each N/A DAILY@2100 [facility] Stop: 10/09/22 20:59 Last Admin: 09/12/22 20:31 Dose: Not Given Multi-Ingredient Cream (Eucerin Cr 120 Gm Jar) 1 appln EXT BID [facility] Stop: 10/09/22 20:59 Last Admin: 09/13/22 08:24 Dose: 1 appln Nitroglycerin (Nitroglycerin Sl 0.4 Mg/Tab Tab) 0.4 mg SL Q5M PRN PRN Reason: Chest Pain Stop: 10/08/22 22:58 Polyethylene Glycol (Polyethylene (Miralax) 17 Gm Pack) 17 gm PO DAILY [facility] Stop: 10/10/22 13:59 Last Admin: 09/13/22 08:24 Dose: 17 gm Rosuvastatin Calcium (Rosuvastatin Calcium 10 Mg Tab) 10 mg PO QAM [facility] Stop: 10/09/22 08:59 Last Admin: 09/13/22 08:23 Dose: 10 mg Spironolactone (Spironolactone 12.5 Mg Tab) 12.5 mg PO DAILY [facility] Stop: 10/13/22 10:59 Last Admin: 09/13/22 12:38 Dose: 12.5 mg Terazosin HCl (Terazosin Hcl 5 Mg Cap) 5 mg PO HS [facility] Stop: 10/09/22 20:59 Last Admin: 09/10/22 20:18 Dose: 5 mg
[2022-09-14 07:39] LABS: BUN Creatinine Ratio 32.8 (10-20); Calcium 9.8 mg/dl (8.5-10.1); Creatinine Clr Calc Pharmacy 49.7 ml/min; Est GFR (Non-African American) 60.4 ml/min; Potassium 4.2 mmol/L (3.5-5.1)
[2022-09-14] MEDS: APIXABAN 5 MG TABLET PO SCH ×2 (09:22→20:16)
[2022-09-14] MEDS: METOPROLOL SUCC 50MG EXT REL TAB PO SCH ×2 (09:22→20:17)
[2022-09-14] MEDS: SPIRONOLACTONE 12.5 MG TAB PO SCH (09:23)
[2022-09-14] MEDS: FUROSEMIDE 40 MG TAB PO SCH (09:23)
[2022-09-14] MEDS: POLYETHYLENE (MIRALAX) 17 GM PACK PO SCH (09:23)
[2022-09-14] MEDS: ROSUVASTATIN CALCIUM 10 MG TAB PO SCH (09:23)
[2022-09-14] MEDS: ASPIRIN 81 MG ECTAB PO SCH (09:24)
[2022-09-14] MEDS: CYANOCOBALAMIN (B-12) 500 MCG TABLET PO SCH (09:24)
[2022-09-14] MEDS: EUCERIN CR 120 GM JAR EXT SCH ×2 (09:24→20:19)
[2022-09-14] MEDS: INSULIN ASPART PER UNIT CHARGE SC SCH ×4 (09:46→20:28)
[2022-09-14] MEDS: hydrALAZINE HCL 25 MG TAB PO SCH ×2 (10:30→20:16)
--- NOTE | 2022-09-14 10:43 | Cardiology Progress Note ---
Date of Service September 14, 2022 Assessment & Plan (1) Acute on chronic diastolic HF (heart failure): (2) Permanent atrial fibrillation: (3) Tachy-aquiles syndrome: (4) Elevated troponin: (5) PND (paroxysmal nocturnal dyspnea): Plan IMPRESSION: 77 year old male who initially presented to the ED due to worsening SOB and hypoxia. Patient hypervolemic on exam secondary to dietary indiscretions. Improvement in clinical status with IV Lasix and Lopressor. Patient with known permanent atrial fibrillation/tachybradycardia syndrome with BiV pacemaker. Telemetry revealing permanent A-fib and 2 episodes of nonsustained VT lasting 8 and 12 beats. Mildly elevated high-sensitivity troponin in the setting of demand ischemia. No indication for ACS at this time. PLAN: 1. Acute on chronic diastolic heart failure with preserved ejection fraction. Clinically improving. -Transition to oral furosemide 40 mg (home dose) -Resumed spironolactone 12.5 mg daily. -volume status improved 2. Persistent atrial fibrillation with tachybradycardia syndrome status post biventricular pacemaker and non sustained VT -continue higher dose metoprolol succinate 100 mg BID on discharge -rates improved without recurrent arrhythmias 3. Hypoxia - -patient reports continued PND around 2:00 AM -nocturnal oximetry requested tonight -consider 2 step prior to discharge as well. Currently at rest he is not requiring supplemental O2. Recommend PT/OT and recommend rehab. Case discussed with Dr. Angela Admission and Anticipated Discharge Date Admission Date: September 08, 2022 Supervising Physician Co-Signing Physician Notes Patient seen and examined personally. Evaluation as above. Has responded to IV now oral diuretics. Arrhythmias under better control with increased dose of metoprolol succinate. (Note change from metoprolol tartrate) Agree with plans for rehab and increased monitor with activities Subjective Patient out of bed this morning, resting comfortably. reports feeling well, except for leg weakness. He reports he continues to awaken at 2:00 AM with PND. SOB lasts several hours and then resolves. He is unsure if he ever had nocturnal oximetry completed. Overall he reports dyspnea/SOB has improved since admission. No chest pain. NO palpitations or dizziness. Review of Systems Review of Systems: All systems reviewed & are unremarkable except as noted in HPI & below Physical Exam Constitutional: WD/WN, vitals as above Neck: normal visual inspection and trachea midline Respiratory: no respiratory distress and no cough Auscultation: + rales (Minimal); no rhonchi and no wheezes Cardiovascular: Rate/Rhythm: + irregularly irregular Heart Sounds: no murmur Vessels: no JVD Extremities: no edema (chronic stasis changes) Chest (Breasts): Chest: + pacemaker Skin: no rashes, warm and dry Psychiatric: A+Ox3, euthymic affect Results & Data Vital Signs (Past 12 Hours) Vital Signs Temp Pulse Pulse Resp BP Pulse Ox O2 Del Method 09/14/22 07:00 36.4 C L 94 H 19 150/94 H 93 Room Air 09/14/22 00:45 67 09/14/22 03:00 36.6 C 81 16 148/81 H 90 Room Air 09/13/22 22:52 36.5 C 75 20 148/81 H 92 Room Air Laboratory Results Comprehensive Metabolic Panel 09/14/22 Range/Units 05:48 Sodium 140 (136-145) mmol/L Potassium 4.2 (3.5-5.1) mmol/L Chloride 99 (98-107) mmol/L Carbon Dioxide 34 H (21-32) mmol/L BUN 38 H (6-23) mg/dl Creatinine 1.16 (0.6-1.4) mg/dl Glucose 133 H (70-99(Fasting)) mg/dl Calcium 9.8 (8.5-10.1) mg/dl Intake and Output 09/13/22 09/14/22 09/14/22 22:59 06:59 14:59 Output Total 0 / 1000 Balance 0 / -1000 Output: # Bowel Movements 0 / 0 Other: # Unmeasured Voids 1 1 Diagnostic Findings Telemetry reviewed: Atrial fibrillation with rates ranging 80-100 bpm. No recurrent VT Medications Administered Current Inpatient Medications Acetaminophen (Acetaminophen 325 Mg Tab) 650 mg PO Q4H PRN PRN Reason: Moderate Pain (Scale 4, 5, 6) Stop: 10/08/22 16:42 Apixaban (Apixaban 5 Mg Tablet) 5 mg PO BID [facility] Stop: 10/08/22 22:59 Last Admin: 09/14/22 09:22 Dose: 5 mg Aspirin (Aspirin 81 Mg Ectab) 81 mg PO DAILY [facility] Stop: 10/09/22 08:59 Last Admin: 09/14/22 09:24 Dose: 81 mg Cyanocobalamin (Cyanocobalamin (B-12) 500 Mcg Tablet) 500 mcg PO QAM [facility] Stop: 10/09/22 08:59 Last Admin: 09/14/22 09:24 Dose: 500 mcg Dextrose (Dextrose 50% 50 Ml Syringe) 25 - 50 ml IV UD PRN; Protocol PRN Reason: Hypoglycemia Protocol Stop: 10/08/22 16:42 Furosemide (Furosemide 40 Mg Tab) 40 mg PO QAM [facility] Stop: 10/13/22 10:59 Last Admin: 09/14/22 09:23 Dose: 40 mg Glucagon (Glucagon For Inj 1 Mg Vial) 1 mg SQ UD PRN; Protocol PRN Reason: Hypoglycemia Protocol Stop: 10/08/22 16:42 Glucose (Glucose 10 Tab/Tube) 4 - 8 tab PO UD PRN; Protocol PRN Reason: Hypoglycemia Treatment Stop: 10/08/22 16:42 Glucose (Glucose 40% Gel 15 Gm Tube) 15 - 30 gm PO UD PRN; Protocol PRN Reason: Hypoglycemia Protocol Stop: 10/08/22 16:42 Hydralazine HCl (Hydralazine Hcl 25 Mg Tab) 12.5 mg PO BID [facility] Stop: 10/08/22 22:59 Last Admin: 09/14/22 10:30 Dose: 12.5 mg Insulin Aspart (Insulin Aspart Per Unit) 0 units SC ACHS [facility] Stop: 10/08/22 20:59 Last Admin: 09/14/22 09:46 Dose: 5 units Lidocaine (Lidocaine 5% 1 Patch) 1 patch TD DAILY PRN PRN Reason: Pain Stop: 10/08/22 22:58 Metoprolol Succinate (Metoprolol Succ 50mg Ext Rel Tab) 100 mg PO BID [facility] Stop: 10/11/22 20:59 Last Admin: 09/14/22 09:22 Dose: 100 mg Miconazole Nitrate (Miconazole Nitrate Powder 85 Gm) 1 appln EXT PRN PRN PRN Reason: Affected Skin Folds Stop: 10/09/22 07:40 Miscellaneous (Carbohydrates For Hypoglycemia ) 15 - 30 gm PO UD PRN PRN Reason: Hypoglycemia Protocol Stop: 10/08/22 16:42 Miscellaneous (Remove Lidoderm Patch) 1 each N/A DAILY@2100 [facility] Stop: 10/09/22 20:59 Last Admin: 09/13/22 21:36 Dose: Not Given Multi-Ingredient Cream (Eucerin Cr 120 Gm Jar) 1 appln EXT BID [facility] Stop: 10/09/22 20:59 Last Admin: 09/14/22 09:24 Dose: 1 appln Nitroglycerin (Nitroglycerin Sl 0.4 Mg/Tab Tab) 0.4 mg SL Q5M PRN PRN Reason: Chest Pain Stop: 10/08/22 22:58 Polyethylene Glycol (Polyethylene (Miralax) 17 Gm Pack) 17 gm PO DAILY [facility] Stop: 10/10/22 13:59 Last Admin: 09/14/22 09:23 Dose: 17 gm Rosuvastatin Calcium (Rosuvastatin Calcium 10 Mg Tab) 10 mg PO QAM [facility] Stop: 10/09/22 08:59 Last Admin: 09/14/22 09:23 Dose: 10 mg Spironolactone (Spironolactone 12.5 Mg Tab) 12.5 mg PO DAILY [facility] Stop: 10/13/22 10:59 Last Admin: 09/14/22 09:23 Dose: 12.5 mg Terazosin HCl (Terazosin Hcl 5 Mg Cap) 5 mg PO HS [facility] Stop: 10/09/22 20:59 Last Admin: 09/10/22 20:18 Dose: 5 mg
--- NOTE | 2022-09-14 16:47 | Hospitalist Progress Note ---
Date of Service September 14, 2022 Assessment & Plan (1) Acute on chronic diastolic HF (heart failure): Plan: History of chronic diastolic heart failure and admitted with increasing shortness of breath secondary to acute on chronic diastolic CHF Has been getting intravenous Lasix Clinically much better Appreciate cardiology input and recommendation Echo of the heart showed EF of 50 to 55%, septal motion is consistent with conduction abnormality, LV severely dilated, aortic valve sclerosis mild without significant stenosis, mild to moderate aortic regurgitation, there is mild to moderate mitral regurgitation, there is mild tricuspid regurgitation, estimated systolic pulmonary pressure is 43 mmHg, dilated inferior vena cava with reduced collapsibility with sniff indicates an elevated right atrial pressure of 15 mmHg, mild aortic root dilatation and mildly dilated ascending aorta Fluid restriction to 1200 mL and strict intake and output well-maintained Clinically much better but is still having occasional VT without any significant cardiac symptoms Has been getting diuretics with reasonable amount of diuresis Clinically better and has been improving day by day Clinically better without any significant symptoms except weakness Has had cumulative fluid loss of 5210 mL-continue diuresis We will get PT and OT evaluation -recommended rehab Accepted to rehab by the insurance company and the patient can be discharged tomorrow if remains stable Electrolyte imbalance Potassium and magnesium have been supplemented We will maintain the level as advised Will be supplemented and monitored regularly Monitored regularly and is corrected Monitor electrolytes and correct if needed (2) Permanent atrial fibrillation: Plan: Rate is controlled now His metoprolol doses have been increased Has been on Eliquis and aspirin Beta-temo has been increased to control the rate Has been having tachycardia with tachyarrhythmias and occasional Wheaties Beta-temo has been increased further Rate seems to be under control Rate is controlled and no more V. 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 (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 (4) DM type 2 (diabetes mellitus, type 2): Plan: SSI Monitor blood sugar (5) CKD (chronic kidney disease), stage III: Plan: Creatinine seems to be stable at 1.16 We will monitor PRP and electrolytes Creatinine has been normalized (6) Sleep apnea: Plan: s/p UPPP Will have nocturnal pulse oximetry Can have to a stable O2 saturation prior to discharge from the facility (7) Hypertension: Plan: Blood pressure is controlled and running on the lower side (8) Dyslipidemia: Plan: Continue statin Plan Awaiting placement Admission and Anticipated Discharge Date Admission Date: September 08, 2022 Subjective 09/09/2022 The patient was seen and examined in telemetry unit He has significant cardiac disease including tachybradycardia syndrome status post pacemaker and persistent atrial fibrillation with diastolic heart failure He has been feeling much better following admission and diuresis Denies any chest pain and no palpitation at rest 09/10/2022 The patient was seen and examined in telemetry unit He has had episodes of V. tach sometime this morning without any significant symptoms He has been feeling otherwise better Denies any palpitation and/or chest pain or shortness of breath 09/11/2022 The patient was seen and examined in telemetry unit He has had episodes of V. tach last night again associated with lightheadedness Denies any more chest pain Has been having tachycardia throughout this morning 09/12/2022 The patient was seen and examined in telemetry unit He has been feeling a little better today Denies any palpitation, chest pain or shortness of breath at rest Leg swelling has improved a lot 09/13/2022 The patient was seen and examined in telemetry unit He has been feeling much better but remains extremely weak and lethargic Heart rate is a stable and the blood pressure is controlled We will get PT and OT evaluation prior to discharge 09/14/2022 The patient was seen and examined in telemetry unit He has been feeling much better but remains very weak and lethargic He has been waiting to go to rehab and he is approved by the insurance to go to rehab Nocturnal pulse oximetry tonight and discharge tomorrow Review of Systems Review of Systems: All systems reviewed and are unremarkable except as noted below Respiratory: No shortness of breath at rest Cardiovascular: Additional Comments: No palpitation and/or chest pain Physical Exam Physical Exam: Sitting on a chair without any acute distress Constitutional: well developed, well nourished, + ill appearing and + obese Eyes: PERRL, conjunctivae normal, anicteric sclerae ENMT: external ear and nose normal, oropharynx normal Neck: trachea midline, no thyromegaly Respiratory: no respiratory distress Auscultation: + diminished lung sounds and + crackles (Bibasilar crackles) Cardiovascular: Rate/Rhythm: + irregularly irregular; not tachycardic Heart Sounds: normal S1, normal S2 and + murmur Extremities: + edema (1+ edema bilaterally) Gastrointestinal (Abdomen): Inspection/Auscultation: + abdomen distended and normal bowel sounds Percussion/Palpation: abdomen soft; abdomen nontender Musculoskeletal: Does not have any acute pain involving any of the joints Neurologic: normal touch/pain/proprioception and moves all extremities; no focal motor deficits Psychiatric: A+Ox3, euthymic affect Lymphatic: no cervical or axillary lymphadenopathy Results & Data Results & Data Vital Signs (Past 12 Hours) Vital Signs Temp Pulse Resp BP Pulse Ox O2 Del Method 09/14/22 15:00 36.7 C 84 18 134/82 94 Room Air 09/14/22 11:16 36.3 C L 86 18 133/73 93 Room Air 09/14/22 08:00 Room Air 09/14/22 07:00 36.4 C L 94 H 19 150/94 H 93 Room Air Laboratory Results [facility] 09/14/22 05:48 Sodium 140 Potassium 4.2 Chloride 99 Carbon Dioxide 34 H BUN 38 H Creatinine 1.16 Glucose 133 H Calcium 9.8 Medications Administered Current Inpatient Medications Acetaminophen (Acetaminophen 325 Mg Tab) 650 mg PO Q4H PRN PRN Reason: Moderate Pain (Scale 4, 5, 6) Stop: 10/08/22 16:42 Apixaban (Apixaban 5 Mg Tablet) 5 mg PO BID [facility] Stop: 10/08/22 22:59 Last Admin: 09/14/22 09:22 Dose: 5 mg Aspirin (Aspirin 81 Mg Ectab) 81 mg PO DAILY [facility] Stop: 10/09/22 08:59 Last Admin: 09/14/22 09:24 Dose: 81 mg Cyanocobalamin (Cyanocobalamin (B-12) 500 Mcg Tablet) 500 mcg PO QAM [facility] Stop: 10/09/22 08:59 Last Admin: 09/14/22 09:24 Dose: 500 mcg Dextrose (Dextrose 50% 50 Ml Syringe) 25 - 50 ml IV UD PRN; Protocol PRN Reason: Hypoglycemia Protocol Stop: 10/08/22 16:42 Furosemide (Furosemide 40 Mg Tab) 40 mg PO QAM [facility] Stop: 10/13/22 10:59 Last Admin: 09/14/22 09:23 Dose: 40 mg Glucagon (Glucagon For Inj 1 Mg Vial) 1 mg SQ UD PRN; Protocol PRN Reason: Hypoglycemia Protocol Stop: 10/08/22 16:42 Glucose (Glucose 10 Tab/Tube) 4 - 8 tab PO UD PRN; Protocol PRN Reason: Hypoglycemia Treatment Stop: 10/08/22 16:42 Glucose (Glucose 40% Gel 15 Gm Tube) 15 - 30 gm PO UD PRN; Protocol PRN Reason: Hypoglycemia Protocol Stop: 10/08/22 16:42 Hydralazine HCl (Hydralazine Hcl 25 Mg Tab) 12.5 mg PO BID [facility] Stop: 10/08/22 22:59 Last Admin: 09/14/22 10:30 Dose: 12.5 mg Insulin Aspart (Insulin Aspart Per Unit Charge) 0 units SC ACHS [facility] Stop: 10/14/22 16:29 Lidocaine (Lidocaine 5% 1 Patch) 1 patch TD DAILY PRN PRN Reason: Pain Stop: 10/08/22 22:58 Metoprolol Succinate (Metoprolol Succ 50mg Ext Rel Tab) 100 mg PO BID [facility] Stop: 10/11/22 20:59 Last Admin: 09/14/22 09:22 Dose: 100 mg Miconazole Nitrate (Miconazole Nitrate Powder 85 Gm) 1 appln EXT PRN PRN PRN Reason: Affected Skin Folds Stop: 10/09/22 07:40 Miscellaneous (Carbohydrates For Hypoglycemia ) 15 - 30 gm PO UD PRN PRN Reason: Hypoglycemia Protocol Stop: 10/08/22 16:42 Miscellaneous (Remove Lidoderm Patch) 1 each N/A DAILY@2100 [facility] Stop: 10/09/22 20:59 Last Admin: 09/13/22 21:36 Dose: Not Given Multi-Ingredient Cream (Eucerin Cr 120 Gm Jar) 1 appln EXT BID [facility] Stop: 10/09/22 20:59 Last Admin: 09/14/22 09:24 Dose: 1 appln Nitroglycerin (Nitroglycerin Sl 0.4 Mg/Tab Tab) 0.4 mg SL Q5M PRN PRN Reason: Chest Pain Stop: 10/08/22 22:58 Polyethylene Glycol (Polyethylene (Miralax) 17 Gm Pack) 17 gm PO DAILY [facility] Stop: 10/10/22 13:59 Last Admin: 09/14/22 09:23 Dose: 17 gm Rosuvastatin Calcium (Rosuvastatin Calcium 10 Mg Tab) 10 mg PO QAM [facility] Stop: 10/09/22 08:59 Last Admin: 09/14/22 09:23 Dose: 10 mg Spironolactone (Spironolactone 12.5 Mg Tab) 12.5 mg PO DAILY [facility] Stop: 10/13/22 10:59 Last Admin: 09/14/22 09:23 Dose: 12.5 mg Terazosin HCl (Terazosin Hcl 5 Mg Cap) 5 mg PO HS [facility] Stop: 10/09/22 20:59 Last Admin: 09/10/22 20:18 Dose: 5 mg
[2022-09-15 08:03] LABS: Hematocrit (blood only) 49.5 % (42.0-52.0); Hemoglobin 16.6 g/dl (14.0-18.0); Mean Corpuscular Hemoglobin 32.2 pg (25.0-34.0); Mean Corpuscular Hgb Conc 33.5 g/dL (32.0-36.0); Mean Corpuscular Volume 96.1 fL (80.0-100.0); Mean Platelet Volume 10.1 fL (9.4-12.4); Platelet Count 304 K/uL (130-400); RDW Coefficient of Variation 15.6 % (11.5-14.5); RDW Standard Deviation 54.8 fL (36.4-46.3); Red Blood Count 5.15 M/uL (4.70-6.10); White Blood Count 8.19 K/ul (4.8-10.8)
[2022-09-15 08:26] LABS: BUN Creatinine Ratio 40.6 (10-20); Calcium 9.7 mg/dl (8.6-10.3); Creatinine Clr Calc Pharmacy 59.2 ml/min; Est GFR (Non-African American) 75.9 ml/min; Potassium 3.7 mmol/L (3.5-5.1)
[2022-09-15] MEDS: INSULIN ASPART PER UNIT CHARGE SC SCH ×2 (09:34→12:35)
[2022-09-15] MEDS: hydrALAZINE HCL 25 MG TAB PO SCH (09:35)
[2022-09-15] MEDS: METOPROLOL SUCC 50MG EXT REL TAB PO SCH (09:35)
[2022-09-15] MEDS: ROSUVASTATIN CALCIUM 10 MG TAB PO SCH (09:36)
[2022-09-15] MEDS: SPIRONOLACTONE 12.5 MG TAB PO SCH (09:36)
[2022-09-15] MEDS: FUROSEMIDE 40 MG TAB PO SCH (09:36)
[2022-09-15] MEDS: ASPIRIN 81 MG ECTAB PO SCH (09:36)
[2022-09-15] MEDS: EUCERIN CR 120 GM JAR EXT SCH (09:36)
[2022-09-15] MEDS: POLYETHYLENE (MIRALAX) 17 GM PACK PO SCH (09:36)
[2022-09-15] MEDS: APIXABAN 5 MG TABLET PO SCH (09:36)
[2022-09-15] MEDS: CYANOCOBALAMIN (B-12) 500 MCG TABLET PO SCH (09:36)
--- NOTE | 2022-09-15 10:42 | Cardiology Progress Note ---
Date of Service September 15, 2022 Assessment & Plan (1) Acute on chronic diastolic HF (heart failure): (2) Permanent atrial fibrillation: (3) Tachy-aquiles syndrome: (4) Elevated troponin: (5) PND (paroxysmal nocturnal dyspnea): Plan IMPRESSION: 77 year old male who initially presented to the ED due to worsening SOB and hypoxia. Patient hypervolemic on exam secondary to dietary indiscretions. Improvement in clinical status with IV Lasix and Lopressor. Patient with known permanent atrial fibrillation/tachybradycardia syndrome with BiV pacemaker. Telemetry revealing permanent A-fib and 2 episodes of nonsustained VT lasting 8 and 12 beats. Mildly elevated high-sensitivity troponin in the setting of demand ischemia. No indication for ACS at this time. PLAN: 1. Acute on chronic diastolic heart failure with preserved ejection fraction. Clinically improving. -Transition to oral furosemide 40 mg (home dose) -Resumed spironolactone 12.5 mg daily. -volume status improved 2. Persistent atrial fibrillation with tachybradycardia syndrome status post biventricular pacemaker and non sustained VT -continue higher dose metoprolol succinate 100 mg BID on discharge -rates improved without recurrent arrhythmias -continue Eliquis 3. Hypoxia - Mild nocturnal hypoxia noted would benefit from supplemental O2 at night. patient agreeable on discharge will need arranged Recommend PT/OT and rehab. Stable cardiac symptoms. No further cardiac testing. Will sign off. Please call refrigeration service inspector provider with additional questions/concerns. Case discussed with Dr. Angela Admission and Anticipated Discharge Date Admission Date: September 08, 2022 Supervising Physician Co-Signing Physician Notes Patient seen and examined personally. Evaluation as above. Has responded to IV now oral diuretics. Arrhythmias under better control with increased dose of metoprolol succinate. (Note change from metoprolol tartrate) Clinically looks improved Agree with plans for rehab and increased monitor with activities Subjective Patient feeling well this morning. Reports SOB at baseline. Edema improved. Still notes weakness. Awaiting rehab placement. Had nocturnal oximetry done last night with mild hypoxia noted, correlating with his PND. Agreeable to O2 at night on discharge. Review of Systems Review of Systems: All systems reviewed & are unremarkable except as noted in HPI & below Physical Exam Constitutional: WD/WN, vitals as above Neck: normal visual inspection and trachea midline Respiratory: + tachypneic; no respiratory distress and no cough Auscultation: + rales (Minimal); no rhonchi and no wheezes Cardiovascular: Rate/Rhythm: + tachycardic and + irregularly irregular Heart Sounds: no murmur Vessels: no JVD Extremities: no edema (chronic stasis changes) Chest (Breasts): Chest: + pacemaker Skin: no rashes, warm and dry Psychiatric: A+Ox3, euthymic affect Results & Data Vital Signs (Past 12 Hours) Vital Signs Temp Pulse Pulse Pulse Resp BP Pulse Ox 09/15/22 07:25 86 09/15/22 07:00 36.6 C 89 18 128/80 93 09/15/22 03:50 09/15/22 02:07 36.5 C 87 18 148/81 H 91 09/14/22 22:38 86 09/14/22 23:00 36.6 C 87 18 146/79 H 94 Pulse Ox O2 Del Method O2 Del Method 09/15/22 07:25 09/15/22 07:00 Room Air 09/15/22 03:50 95 Room Air 09/15/22 02:07 Room Air 09/14/22 22:38 93 Room Air 09/14/22 23:00 Room Air Laboratory Results CBC 09/15/22 Range/Units 06:42 WBC 8.19 (4.8-10.8) K/ul RBC 5.15 (4.70-6.10) M/uL Hgb 16.6 (14.0-18.0) g/dl Hct 49.5 (42.0-52.0) % Plt Count 304 (130-400) K/uL Comprehensive Metabolic Panel 09/15/22 Range/Units 06:42 Sodium 139 (136-145) mmol/L Potassium 3.7 (3.5-5.1) mmol/L Chloride 100 (98-107) mmol/L Carbon Dioxide 28 (21-32) mmol/L BUN 39 H (6-23) mg/dl Creatinine 0.96 (0.6-1.4) mg/dl Glucose 143 H (70-99(Fasting)) mg/dl Calcium 9.7 (8.6-10.3) mg/dl Intake and Output 09/14/22 09/15/22 09/15/22 22:59 06:59 14:59 Intake Total 100 / 480 240 / 240 Output Total 350 / 752 Balance -350 / -272 100 / -272 239 / 239 Intake: Oral 100 / 480 240 / 240 Output: Urine Amount (Catheter) 350 / 750 External 350 / 750 # Bowel Movements Other: Other Intake Source sips # Unmeasured Voids 1 Weight 79.5 kg 77.1 kg Weight Measurement Method Built in [facility] Diagnostic Findings Telemetry reviewed: Atrial fibrillation with intermittent pacing, rates 80-100 bpm Medications Administered Current Inpatient Medications Acetaminophen (Acetaminophen 325 Mg Tab) 650 mg PO Q4H PRN PRN Reason: Moderate Pain (Scale 4, 5, 6) Stop: 10/08/22 16:42 Last Admin: 09/15/22 02:01 Dose: 650 mg Apixaban (Apixaban 5 Mg Tablet) 5 mg PO BID [facility] Stop: 10/08/22 22:59 Last Admin: 09/15/22 09:36 Dose: 5 mg Aspirin (Aspirin 81 Mg Ectab) 81 mg PO DAILY [facility] Stop: 10/09/22 08:59 Last Admin: 09/15/22 09:36 Dose: 81 mg Cyanocobalamin (Cyanocobalamin (B-12) 500 Mcg Tablet) 500 mcg PO QAM [facility] Stop: 10/09/22 08:59 Last Admin: 09/15/22 09:36 Dose: 500 mcg Dextrose (Dextrose 50% 50 Ml Syringe) 25 - 50 ml IV UD PRN; Protocol PRN Reason: Hypoglycemia Protocol Stop: 10/08/22 16:42 Furosemide (Furosemide 40 Mg Tab) 40 mg PO QAM [facility] Stop: 10/13/22 10:59 Last Admin: 09/15/22 09:36 Dose: 40 mg Glucagon (Glucagon For Inj 1 Mg Vial) 1 mg SQ UD PRN; Protocol PRN Reason: Hypoglycemia Protocol Stop: 10/08/22 16:42 Glucose (Glucose 10 Tab/Tube) 4 - 8 tab PO UD PRN; Protocol PRN Reason: Hypoglycemia Treatment Stop: 10/08/22 16:42 Glucose (Glucose 40% Gel 15 Gm Tube) 15 - 30 gm PO UD PRN; Protocol PRN Reason: Hypoglycemia Protocol Stop: 10/08/22 16:42 Hydralazine HCl (Hydralazine Hcl 25 Mg Tab) 12.5 mg PO BID [facility] Stop: 10/08/22 22:59 Last Admin: 09/15/22 09:35 Dose: 12.5 mg Insulin Aspart (Insulin Aspart Per Unit Charge) 0 units SC ACHS [facility] Stop: 10/14/22 16:29 Last Admin: 09/15/22 09:34 Dose: 5 units Lidocaine (Lidocaine 5% 1 Patch) 1 patch TD DAILY PRN PRN Reason: Pain Stop: 10/08/22 22:58 Metoprolol Succinate (Metoprolol Succ 50mg Ext Rel Tab) 100 mg PO BID [facility] Stop: 10/11/22 20:59 Last Admin: 09/15/22 09:35 Dose: 100 mg Miconazole Nitrate (Miconazole Nitrate Powder 85 Gm) 1 appln EXT PRN PRN PRN Reason: Affected Skin Folds Stop: 10/09/22 07:40 Miscellaneous (Carbohydrates For Hypoglycemia ) 15 - 30 gm PO UD PRN PRN Reason: Hypoglycemia Protocol Stop: 10/08/22 16:42 Miscellaneous (Remove Lidoderm Patch) 1 each N/A DAILY@2100 [facility] Stop: 10/09/22 20:59 Last Admin: 09/14/22 20:19 Dose: Not Given Multi-Ingredient Cream (Eucerin Cr 120 Gm Jar) 1 appln EXT BID [facility] Stop: 10/09/22 20:59 Last Admin: 09/15/22 09:36 Dose: 1 appln Nitroglycerin (Nitroglycerin Sl 0.4 Mg/Tab Tab) 0.4 mg SL Q5M PRN PRN Reason: Chest Pain Stop: 10/08/22 22:58 Polyethylene Glycol (Polyethylene (Miralax) 17 Gm Pack) 17 gm PO DAILY [facility] Stop: 10/10/22 13:59 Last Admin: 09/15/22 09:36 Dose: Not Given Rosuvastatin Calcium (Rosuvastatin Calcium 10 Mg Tab) 10 mg PO QAM [facility] Stop: 10/09/22 08:59 Last Admin: 09/15/22 09:36 Dose: 10 mg Spironolactone (Spironolactone 12.5 Mg Tab) 12.5 mg PO DAILY [facility] Stop: 10/13/22 10:59 Last Admin: 09/15/22 09:36 Dose: 12.5 mg Terazosin HCl (Terazosin Hcl 5 Mg Cap) 5 mg PO HS [facility] Stop: 10/09/22 20:59 Last Admin: 09/10/22 20:18 Dose: 5 mg
--- NOTE | 2022-09-15 12:23 | Discharge Summary ---
Date of Service September 15, 2022 Admission HPI Per Admitting Provider CHIEF COMPLAINT: Shortness of breath. HISTORY OF PRESENT ILLNESS: This is a 77-year-old male with a past medical history significant for type 2 diabetes, hypertension, chronic kidney disease stage III, hyperlipidemia, paroxysmal atrial fibrillation, diastolic CHF, CAD, hypertension, history of tachy-aquiles syndrome, status post pacemaker, history of COVID-19 in April and also in July of 2022. Presents with shortness of breath. The patient went to [facility] with shortness of breath in the morning. The patient was requiring oxygen. Received a dose of IV Lasix 80 mg and he was also in rapid AFib, was given Lopressor and also placed on Cardizem drip and transferred here for his cardiology evaluation. The patient states since then he micturated and is feeling his shortness of breath is much improved. The symptoms started two days ago. He says his swelling of the legs is also worsened. Denies any orthopnea. He ambulates with a walker. Denies any chest pain, no nausea, no abdominal pain, no headache, no dizziness. He has some blurred visions. No earache, no runny nose, no sore throat, no cough. Appetite is down the last two days. No hematuria or blood in the stools or black stools. Currently, his heart rate is in the 120s. ALLERGIES: No known drug allergies. PAST MEDICAL HISTORY: As mentioned above. PAST SURGICAL HISTORY: Cardiac catheterization, colonoscopy with biopsy, dual chamber pacemaker, lumbar spine fusion surgery, cataract surgeries, inguinal hernia repair, repair of umbilical hernia, revision of palate, pharynx, uvula, spinal fusion surgery. MEDICATIONS: The patient is on Tylenol 500 mg p.o. q. 8 hours p.r.n., Eliquis 5 mg p.o. b.i.d., aspirin 81 mg p.o. daily, vitamin B12 500 mcg p.o. daily, Lasix 40 mg p.o. a.m., hydralazine 12.5 mg p.o. b.i.d., Jardiance 25 mg p.o. a.m., lidocaine patch topical daily p.r.n., metformin 2 g p.o. daily, metoprolol tartrate 50 mg p.o. b.i.d., nitroglycerin 0.4 mg sublingual p.r.n., potassium chloride 10 mEq p.o. daily, rosuvastatin 10 mg p.o. a.m., terazosin 5 mg p.o. at bedtime. FAMILY HISTORY: Significant for father had colon cancer; brother has heart attack; daughter has heart attack; father has stroke; mother has stroke. SOCIAL HISTORY: . Former smoker. Alcohol, beer once in a while. No drug use. REVIEW OF SYSTEMS: As per HPI. Rest of the review of systems is negative. Admission Exam Per Admitting Provider GENERAL: The patient is obese, not in acute distress. VITAL SIGNS: Temperature 37, pulse 125, respiratory rate 18, blood pressure 151/80, oxygen 95% on 2 liters. HEENT: Extraocular muscles intact. No pallor. No icterus. No facial droop. Oral mucosa moist. NECK: No JVD, no neck masses. CARDIOVASCULAR: S1 and S2 heard. Tachycardia. No murmurs. RESPIRATORY SYSTEM: Normal AP diameter. No accessory muscle use. No wheezing, no crackles. ABDOMEN: Soft, bowel sounds present, nontender, no distention. CENTRAL NERVOUS SYSTEM: Alert and oriented. Speech is clear. Insight is good. Obeys commands. Moves extremities. EXTREMITIES: Bilateral lower extremity, +2 pedal edema present. Chronic skin changes seen. No obvious erythema seen. Principal Diagnosis Acute on chronic diastolic heart failure Permanent A-fib on Eliquis Nocturnal hypoxemia Discharge Exam GENERAL: Alert and oriented x3. NAD, on RA. HEENT: No pallor, no icterus. Pupils equal, round and reactive to light. Oral mucosa moist. NECK: No JVD, no neck masses. HEART: S1 and S2 heard. Regular rate and rhythm. + murmur, no gallop. RESPIRATORY SYSTEM: Normal AP diameter. No accessory muscle use. No wheezing, b/b crackles. ABDOMEN: Soft, bowel sounds present, nontender, no distention. CENTRAL NERVOUS SYSTEM: No facial droop. Speech is clear. Obeys simple commands. Moves extremities. EXTREMITIES: trace to 1+ BLE edema; chronic skin changes ble noted. Discharge Data Allergies Allergy/AdvReac Type Severity Reaction Status Date / Time No Known Allergies Allergy Unverified 08/14/22 14:41 Consultations 09/08/22 16:44 Consult Cardiology Routine Hospital Course (1) Acute on chronic diastolic HF (heart failure): Plan 77-year-old man was managed for acute on chronic diastolic heart failure, echo with ejection fraction of 50 to 55%, cardiology evaluated, metoprolol uptitrated, Aldactone added. Patient resumed on home Lasix dose. Clinically volume status getting better, currently on room air. Overnight pulse ox positive for nocturnal hypoxemia, patient will need oxygen during sleep, prescription written; CM to facilitate. Patient will need labs CBC/CMP/magnesium/phosphorus in a week time. Patient will need follow-up with cardiology in 2 to 4 weeks time upon discharge. He is being discharged to assisted with following instruction at the point of discharge: Follow-up with your primary care physician within a week time and likely you will need labs CBC/CMP/magnesium/phosphorus. Follow-up with your cardiology in 2 to 4 weeks time upon discharge. Maintain heart healthy and low-sodium diet, maintain fluid restriction of 1200 mL/day. You will need oxygen by nasal cannula during sleep. You will benefit from following up with sleep medicine as an outpatient. Take your medications as prescribed. Please make sure that you are able to get your medications today by calling your pharmacy before you leave the hospital so that your treatment continuity is not broken. Home Health Attestation I certify that this patient is under my care and that I, or a physicians assistant chief engineer working with me, had a face to-face encounter that meets the home health [id number] encounter requirements with this patient. The encounter with the patient was in whole, or in part, for the following medical condition, which is the primary reason for home health care (list medical condition): I certify that, based on my findings, the following services are medically n ecessary home health services: My clinical findings support the need for the above services because: Further, I certify that my clinical findings support that this patient is homebound (i.e. absences from home require considerable and taxing effort and are for medical reasons or anabaptist services or infrequently or of short duration when for other reasons) because: Certification for Home Health Services: Based on the above findings, I certify that this patient is confined to the home and needs intermittent residential care, physical therapy and/or speech therapy or continues to need occupational therapy. The patient is under my care, and I have initiated the establishment of the plan of care. This patient will be followed by a physician who will periodically review the plan of care. Total Time Total Time Spent Total Time Spent (In Minutes): 50 Discharge Plan Discharge Items Patient Disposition: Transfer Senior Living Fac Reason For Visit: [facility] EXACERBATION, AFIB WITH RVR Discharge Diagnosis: Acute on chronic diastolic heart failure Permanent A-fib on Eliquis Nocturnal hypoxemia Activity: Resume your previous activity Non-emergency contact: Primary Care Provider and Materials Handling Equipment Operator Call non-emergency contact if: you have any medication questions and your symptoms worsen Follow-up/Referrals: Cyndi Rich MD [Primary Care Provider] - Diet: Carb Consistent or DM2 and Heart Healthy Fluids: 1200ml (5 cups) Addtl Attending Provider Instructions: Follow-up with your primary care physician within a week time and likely you will need labs CBC/CMP/magnesium/phosphorus. Follow-up with your cardiology in 2 to 4 weeks time upon discharge. Maintain heart healthy and low-sodium diet, maintain fluid restriction of 1200 m L/day. You will need oxygen by nasal cannula during sleep. You will benefit from following up with sleep medicine as an outpatient. Take your medications as prescribed. Please make sure that you are able to get your medications today by calling your pharmacy before you leave the hospital so that your treatment continuity is not broken. Pending Studies at Discharge: No Stand-Alone Forms: My [employer] Skilled Items Patient informed of condition?: No DNR: No Discharge Level of Care: Skilled Communicable Disease: No Discharge Prognosis: Stable Lines: None Urinary Catheter: No Medications and DC Order Prescriptions: New metoprolol succinate 50 mg Tablet Extended Release 24 Hr 100 mg PO BID Qty: 120 0RF spironolactone 25 mg Tablet 12.5 mg PO DAILY Qty: 15 0RF Continued aspirin 81 mg Tablet,Delayed Release (Dr/Ec) 81 mg PO DAILY Qty: 0 nitroglycerin [Nitrostat] 0.4 mg Tablet, Sublingual 0.4 mg sublingual Q5M PRN (Reason: Chest Pain) Qty: 0 Patient Comments: Place 0.4 mg under tongue every 5 minutes as needed for chest pain. Up to 3 doses in 15 minutes. Rx Instructions: 1 t under the tongue q 5 minutes x 3 doses in 15 minutes if no relief call 911 metformin 500 mg Tablet Extended Release 24 Hr 2,000 mg PO QAM Qty: 0 rosuvastatin 10 mg Tablet 10 mg PO QAM Qty: 0 apixaban 5 mg Tablet 5 mg PO BID Qty: 0 acetaminophen 500 mg Tablet 500 mg PO Q8H PRN (Reason: Pain) Qty: 0 lidocaine 5 % Adhesive Patch,Medicated 1 patch TOPICAL DAILY PRN (Reason: Pain) Qty: 0 Patient Comments: MAY APPLY UPTO THREE PATCHES IN 24 HOURS, REMOVE AFTER 12 HOURS Rx Instructions: leave on most painful area for up to 12 hrs Remove at night hydralazine 25 mg Tablet 12.5 mg PO BID cyanocobalamin (vitamin B-12) 500 mcg Tablet 500 mcg PO QAM Jardiance 25 mg tablet 25 mg PO QAM furosemide 40 mg Tablet 40 mg PO QAM Qty: 30 0RF Discontinued potassium chloride 10 mEq Tablet Extended Release 10 meq PO QAM Qty: 0 terazosin 5 mg Capsule 5 mg PO HS Qty: 0 metoprolol tartrate 50 mg Tablet 50 mg PO BID 30 Days Qty: 60 0RF Discharge Orders: Discharge Order- CHF (Routine); Ordered 09/15/22 Ordered By: Fransisco Walker Admission Data Admit Date/Time: 09/08/22 22:03 Attending Provider: Fransisco Walker Admit Provider: Sam Thomas Primary Care Provider: Cyndi Rich Other Providers: Fredi Fernandez ; [facility]
--- NOTE | 2022-09-20 08:34 | Coding Query ---
PRESENT ON ADMISSION QUERY To promote full compliance with coding requirements relating to pateint care, physician participation is requested in all cases of container filler uncertainty. Please assist us with the question(s) below: Please place an X within the parenthesis (x). The following diagnosis listed in this patient's medical record require physician assistance to determine if they were present on admission (POA) or not. Please advise for each diagnosis whether it was present on admission, not present on admission, or if it was clinically undetermined. 1. Pressure Ulcer of left medial buttock, stage 3 - (documented on an addendum on the 09/13 Progress Note) ( ) Present On Admission ( ) Not Present On Admission ( x) Clinically Undetermined Thank you Monae Meraz *Definition of the present on admission (POA)-Present on admission is defined as present at the time the order for inpatient admission occurs. Conditions that develop during an outpatient encounter prior to a written order for inpatient admission (including emergency department, observation, or outpatient surgery) are considered present on admission. [place]
== END 2022-09-15 15:49 | DRG 291 ==
LOC: SUATTDRO 22:03 → 2S 22:03

== ENCOUNTER 2022-11-07 13:49 | Inpatient (IN) ==
--- NOTE | 2022-11-07 14:00 | Emergency Department Note ---
Impression & Plan Shortness of breath, Chest pain, Elevated troponin ED Provider Note NAME: BRITTNEE FOSTER JR AGE: 77 SEX: M : 1945 ARRIVES VIA: Ambulance INFORMANT: Patient, EMS ED PROVIDER(S): Johnathan Aguirre DO CHIEF COMPLAINT: Shortness of breath HPI: Patient is a 77-year-old male with a past medical history of paroxysmal A- fib on Eliquis, tachybradycardia syndrome, CAD, hypertension, diabetes, hyperlipidemia and CHF who presents to the ER for shortness of breath which has been present for the past week. He is getting exertional chest pain with this as well now over the past 24 hours. Notes shortness of breath is only with exertion. Occurs with even standing up. Denies any belly pain, nausea, vomiting, or diarrhea. No dysuria, urgency, or frequency. No other exacerbat ing or remitting factors. He does admit to having nosebleeds over the past week and had packing which was removed this past Monday. PAST MEDICAL HISTORY:See Below PAST SURGICAL HISTORY:See Below FAMILY HISTORY:See Below SOCIAL HISTORY:See Below HOME MEDICATIONS:See Below ALLERGIES:See Below VITALS:See Below PHYSICAL EXAMINATION: GENERAL: Sitting up in bed, alert, well appearing, well nourished, no distress, non-toxic EYE EXAM: normal conjunctiva. OROPHARYNX:mucous membranes are moist NECK: supple, no nuchal rigidity, no adenopathy, non-tender LUNGS: Clear to auscultation. Normal chest wall mechanics HEART: no murmurs, S1 normal and S2 normal ABDOMEN: abdomen soft, non-tender, normo-active bowel sounds, no masses, no rebound or guarding. SKIN: Mild pitting edema bilateral lower extremities UPPER EXTREMITIES: upper extremities are grossly normal. LOWER EXTREMITIES: No pitting edema. NEURO EXAM: Normal sensorium, cranial nerves II-XII grossly intact, normal speech, no gross weakness of arms, no gross weakness of legs. MEDICAL DECISION MAKING: Patient is a 77-year-old male who presents ER for exertional chest pain shortness of breath which has been getting worse over the past week. IV was established blood work was obtained. External records were reviewed. Labs show mild leukocytosis 12,000. No significant anemia. BMP with LFTs bilirubin was unremarkable. Troponin mildly elevated 27 which is actually lower than his previous. proBNP was elevated at 1400. TSH unremarkable. COVID-negative. Chest x-ray was nondiagnostic. Discussed with hospitalist for further evaluation management treatment. Patient was given aspirin while in the ER. Triage Nursing notes reviewed. Limited review of prior medical records performed Vital Signs: reviewed and remarkable for no significant abnormalities Differential diagnosis: Cardiac ischemia, aortic dissection, pulmonary embolism, pneumothorax, pneumonia, pericarditis, myocarditis, esophageal rupture, GERD, cholecystitis, pancreatitis, musculoskeletal, as well as other pathologies. ER treatment provided: See below Diagnostics interpreted by me include EKG and cardiac monitoring as listed below: -Cardiac Monitoring: An order was placed for continuous cardiac monitoring. The monitor shows a rate of [] with [] rhythm. -ECG: A-fib rate of 110 Left axis QTc [address] ST depressions in lateral leads T wave inversions in the high lateral leads No significant change from September 09 of this year -Laboratory studies:Interpreted by me as stated above in MDM and shown below. Imaging studies: Xrays: As interpreted by me: Portable AP upright 1 view of the chest shows no focal infiltrate CTs show: none Consultation(s): As described in [facility] Procedures:none Critical Care: None Past Med/Surg History Medical History (Updated 11/07/22 @ 19:39 by Johnathan Aguirre DO) Aortic root enlargement CAD (coronary artery disease) "Non-obstructive by cath in 2009" Chronic diastolic CHF (congestive heart failure), NYHA class 1 "Echo 05/2015- EF 65-69%, grade II diastolic dysfunction, mild AV regurgitation, mildly enlarged aortic root and proximal ascending aorta" On 03/24/15 09:50 Kylah Tilley wrote "Echo in 06/2013 showed EF 60-65%, grade 2 diastolic dysfunction" CKD (chronic kidney disease), stage III COVID-19 DM type 2 (diabetes mellitus, type 2) Hypertension Hypoxia Permanent atrial fibrillation Sleep apnea "s/p UPPP" Tachy-aquiles syndrome "S/P pacemaker in 2013" Surgical History (Updated 11/07/22 @ 16:15 by Bhargavi Miranda DO) History of hernia surgery Previous back surgery Family History (Updated 11/07/22 @ 16:15 by Bhargavi Miranda DO) Brother Heart disease Mother Stroke Father Stroke Social History Smoking Status: Never smoker Second Hand Exposure: No; Do You Dip or Chew Tobacco: No; Hx Alcohol Use: No Hx Substance Use: No Preferred Language: [place] Communication Ability: Effective Sludge Control Attendant Required: No Beliefs That Will Affect Care: None Current Living Situation: Family Current Living Situation Comment: daughters live with him Feels Safe at Home: Yes Assistive Devices: Cane and Walker Allergies Allergies Allergy/AdvReac Type Severity Reaction Status Date / Time No Known Allergies Allergy Verified 11/07/22 15:54 Home Meds Home Medications Medication Instructions Recorded Confirmed aspirin 81 mg tablet,delayed 81 mg PO DAILY ##0 03/23/15 11/07/22 release metformin 500 mg tablet,extended 2,000 mg PO QAM #0 tabs 03/23/15 11/07/22 release 24 hr nitroglycerin 0.4 mg sublingual 0.4 mg sublingual Q5M PRN Chest 03/23/15 11/07/22 tablet (Nitrostat) Pain #0 BTLS rosuvastatin 10 mg tablet 10 mg PO QAM #0 tabs 03/23/15 11/07/22 apixaban 5 mg tablet 5 mg PO BID ##0 12/10/15 11/07/22 acetaminophen 500 mg tablet 500 mg PO Q8H PRN Pain #0 tabs 09/13/16 11/07/22 lidocaine 5 % topical patch 1 patch topical DAILY PRN Pain ##0 09/13/16 11/07/22 cyanocobalamin (vitamin B-12) 500 500 mcg PO QAM 08/14/22 11/07/22 mcg tablet empagliflozin 25 mg tablet 25 mg PO QAM 08/14/22 11/07/22 (Jardiance) hydralazine 25 mg tablet 12.5 mg PO BID 08/14/22 11/07/22 Previous Rx's Medication Instructions Recorded furosemide 40 mg tablet 40 mg PO QAM #30 tabs 08/16/22 metoprolol succinate 50 mg 100 mg PO BID #120 tabs 09/15/22 tablet,extended release 24 hr spironolactone 25 mg tablet 12.5 mg PO DAILY #15 tabs 09/15/22 Results & Data (ED) Vital Signs Vital Signs - 24 hr 11/07/22 14:04 11/07/22 14:04 11/07/22 14:04 Temperature 36.4 C L Temperature Source Oral Pulse Rate 123 H Pulse Rate from SpO2 Sensor Pulse Rhythm Irregular Pulse Strength Normal Respiratory Rate 14 Respiratory Effort / Characteristics Non-Labored Spontaneous Short of Breath Non-Labored Spontaneous Short of Breath Respiratory Depth Normal Normal Respiratory Pattern Regular Regular Blood Pressure 121/84 Blood Pressure Mean 96 Blood Pressure Position Lying Pulse Oximetry 98 Oxygen Delivery Method Room Air Room Air Room Air Sepsis Recent Fever Within 48 Hours No Sepsis New/Unexplained Change in Mental Status N/A Sepsis Action Taken by Nursing No Action Required 11/07/22 14:34 11/07/22 15:55 11/07/22 14:33 Temperature Temperature Source Pulse Rate 97 H 120 H Pulse Rate from SpO2 Sensor 122 H Pulse Rhythm Pulse Strength Respiratory Rate 21 Respiratory Effort / Characteristics Non-Labored Spontaneous Respiratory Depth Normal Respiratory Pattern Regular Blood Pressure Blood Pressure Mean Blood Pressure Position Pulse Oximetry 94 Oxygen Delivery Method Room Air Sepsis Recent Fever Within 48 Hours Sepsis New/Unexplained Change in Mental Status Sepsis Action Taken by Nursing 11/07/22 14:40 11/07/22 14:50 11/07/22 15:00 Temperature Temperature Source Pulse Rate 102 H 97 H Pulse Rate from SpO2 Sensor 110 H 94 H Pulse Rhythm Pulse Strength Respiratory Rate 23 Respiratory Effort / Characteristics Respiratory Depth Respiratory Pattern Blood Pressure 135/83 Blood Pressure Mean 100 Blood Pressure Position Pulse Oximetry 98 92 Oxygen Delivery Method Sepsis Recent Fever Within 48 Hours Sepsis New/Unexplained Change in Mental Status Sepsis Action Taken by Nursing 11/07/22 15:00 11/07/22 15:10 11/07/22 15:20 Temperature Temperature Source Pulse Rate 118 H 92 H 112 H Pulse Rate from SpO2 Sensor 110 H 98 H 117 H Pulse Rhythm Pulse Strength Respiratory Rate 21 23 24 Respiratory Effort / Characteristics Respiratory Depth Respiratory Pattern Blood Pressure Blood Pressure Mean Blood Pressure Position Pulse Oximetry 96 98 96 Oxygen Delivery Method Sepsis Recent Fever Within 48 Hours Sepsis New/Unexplained Change in Mental Status Sepsis Action Taken by Nursing 11/07/22 15:30 11/07/22 15:30 11/07/22 15:40 Temperature Temperature Source Pulse Rate 112 H 107 H Pulse Rate from SpO2 Sensor 74 114 H Pulse Rhythm Pulse Strength Respiratory Rate 21 23 Respiratory Effort / Characteristics Respiratory Depth Respiratory Pattern Blood Pressure 112/77 Blood Pressure Mean 88 Blood Pressure Position Pulse Oximetry 96 96 Oxygen Delivery Method Sepsis Recent Fever Within 48 Hours Sepsis New/Unexplained Change in Mental Status Sepsis Action Taken by Nursing 11/07/22 15:50 Temperature Temperature Source Pulse Rate 94 H Pulse Rate from SpO2 Sensor 111 H Pulse Rhythm Pulse Strength Respiratory Rate 19 Respiratory Effort / Characteristics Respiratory Depth Respiratory Pattern Blood Pressure Blood Pressure Mean Blood Pressure Position Pulse Oximetry 97 Oxygen Delivery Method Sepsis Recent Fever Within 48 Hours Sepsis New/Unexplained Change in Mental Status Sepsis Action Taken by Nursing Laboratory Data 11/07/22 14:04 11/07/22 14:04 Lab Results 11/07/22 11/07/22 11/07/22 Range/Units 14:04 14:04 14:04 WBC 12.22 H (4.8-10.8) K/ul RBC 3.98 L (4.70-6.10) M/uL Hgb 12.0 L (14.0-18.0) g/dl Hct 38.4 L (42.0-52.0) % MCV 96.5 (80.0-100.0) fL MCH 30.2 (25.0-34.0) pg MCHC 31.3 L (32.0-36.0) g/dL RDW Std Deviation 55.2 H (36.4-46.3) fL RDW Coeff of Mavis 15.8 H (11.5-14.5) % Plt Count 342 (130-400) K/uL MPV 10.1 (9.4-12.4) fL Immature Gran % (Auto) 0.6 % Neut % (Auto) 79.7 % Lymph % (Auto) 12.0 % [place] % (Auto) 7.1 % Eos % (Auto) 0.2 % Baso % (Auto) 0.4 % Neut # (Auto) 9.73 H (1.40-6.50) K/uL Lymph # (Auto) 1.47 (1.2-3.4) K/uL [place] # (Auto) 0.87 H (0.11-0.59) K/uL Eos # (Auto) 0.03 (0-0.50) K/uL Baso # (Auto) 0.05 (0-0.2) K/uL Immature Gran # (Auto) 0.07 (0.01-0.20) K/uL Sodium 139 (136-145) mmol/L Potassium 3.9 (3.5-5.1) mmol/L Chloride 100 (98-107) mmol/L Carbon Dioxide 26 (21-32) mmol/L Anion Gap 13 H (3-11) BUN 20 (6-23) mg/dl Creatinine 0.96 (0.6-1.4) mg/dl Est Cr Clr Drug Dosing Not Reportable Est GFR ( Amer) 88.0 ml/min Est GFR (Non-Af Amer) 75.9 ml/min BUN/Creatinine Ratio 20.8 H (10-20) Glucose 156 H (70-99(Fasting)) mg/dl Calcium 9.7 (8.6-10.3) mg/dl Total Bilirubin 0.7 (0.2-1.0) mg/dl AST 13 (13-39) U/L ALT 7 (7-52) U/L Alkaline Phosphatase 76 (34-104) U/L Troponin I High Sens 27.1 H (0-20) pg/ml B-Natriuretic Peptide (0-100) pg/ml Total Protein 6.8 (6.0-8.3) gm/dl Albumin 3.9 (3.4-5.0) gm/dl Globulin 2.9 (2.5-4.0) gm/dl Albumin/Globulin Ratio 1.3 (0.9-2) Lipase 24 (11-82) U/L TSH 1.424 (0.300-4.500) uIu/ml SARS-CoV-2, RNA, NAAT (NEGATIVE) 11/07/22 11/07/22 Range/Units 14:40 16:34 WBC (4.8-10.8) K/ul RBC (4.70-6.10) M/uL Hgb (14.0-18.0) g/dl Hct (42.0-52.0) % MCV (80.0-100.0) fL MCH (25.0-34.0) pg MCHC (32.0-36.0) g/dL RDW Std Deviation (36.4-46.3) fL RDW Coeff of Mavis (11.5-14.5) % Plt Count (130-400) K/uL MPV (9.4-12.4) fL Immature Gran % (Auto) % Neut % (Auto) % Lymph % (Auto) % [place] % (Auto) % Eos % (Auto) % Baso % (Auto) % Neut # (Auto) (1.40-6.50) K/uL Lymph # (Auto) (1.2-3.4) K/uL [place] # (Auto) (0.11-0.59) K/uL Eos # (Auto) (0-0.50) K/uL Baso # (Auto) (0-0.2) K/uL Immature Gran # (Auto) (0.01-0.20) K/uL Sodium (136-145) mmol/L Potassium (3.5-5.1) mmol/L Chloride (98-107) mmol/L Carbon Dioxide (21-32) mmol/L Anion Gap (3-11) BUN (6-23) mg/dl Creatinine (0.6-1.4) mg/dl Est Cr Clr Drug Dosing Est GFR ( Amer) ml/min Est GFR (Non-Af Amer) ml/min BUN/Creatinine Ratio (10-20) Glucose (70-99(Fasting)) mg/dl Calcium (8.6-10.3) mg/dl Total Bilirubin (0.2-1.0) mg/dl AST (13-39) U/L ALT (7-52) U/L Alkaline Phosphatase (34-104) U/L Troponin I High Sens (0-20) pg/ml B-Natriuretic Peptide 1446 H (0-100) pg/ml Total Protein (6.0-8.3) gm/dl Albumin (3.4-5.0) gm/dl Globulin (2.5-4.0) gm/dl Albumin/Globulin Ratio (0.9-2) Lipase (11-82) U/L TSH (0.300-4.500) uIu/ml SARS-CoV-2, RNA, NAAT NEGATIVE (NEGATIVE) Administered Medications Nitroglycerin (Nitroglycerin 2% Ointment 30gm Tube) 0.5 inch EXT Q6H [place] Stop: 12/07/22 17:14 Last Admin: 11/07/22 17:16 Dose: 0.5 inch Documented By: ADARSH Discontinued Medications Furosemide (Furosemide 40 Mg/4 Ml Vial) 40 mg IV ONE STA Stop: 11/07/22 16:26 Last Admin: 11/07/22 16:58 Dose: 40 mg Documented By: ADARSH Metoprolol Tartrate (Metoprolol Tartrate 1 Mg/Ml Vial) 5 mg IV NOW STA Stop: 11/07/22 17:03 Last Admin: 11/07/22 18:52 Dose: Not Given Documented By: KMO Imaging Data Radiologist's Impression: Chest X-Ray 11/07/22 13:58 SINGLE VIEW CHEST CLINICAL HISTORY: Atypical chest pain FINDINGS: An AP, portable, upright chest radiograph is compared to study dated 09/09/2022. The examination is degraded by portable technique and apical lordotic positioning. A 2-lead cardiac pacemaker is unchanged in position. The heart is enlarged note atherosclerotic calcification of the thoracic aorta. There is mild pulmonary vascular congestion. Trace pleural effusions are suspected. Atelectasis is noted at the lung bases. No pneumothorax is seen. The skeletal structures are osteopenic. The bony thorax is grossly intact. Arthritic change is noted in the shoulders. IMPRESSION: 1. Cardiomegaly and cardiac pacemaker with mild pulmonary vascular congestion. 2. Suspect trace pleural effusions. ACT 112: Negative or not required by law. Electronically signed by: Jb Mckinney M.D. 11/07/2022 2:13 PM Discharge Plan Visit Data Chief Complaint: Shortness of Breath/Dyspnea Stated Complaint: SOB ED Provider: Johnathan Aguirre Discharge Problem: Shortness of breath, Chest pain, Elevated troponin Patient Disposition: Admitted As Inpatient Discharge Instructions Interventions: ED Discharge Assessment Last Done: 11/07/22 19:00
--- NOTE | 2022-11-07 14:14 | XRay Report ---
SINGLE VIEW CHEST CLINICAL HISTORY: Atypical chest pain FINDINGS: An AP, portable, upright chest radiograph is compared to study dated 09/09/2022. The examina tion is degraded by portable technique and apical lordotic positioning. A 2-lead cardiac pacemaker is unchanged in position. The heart is enlarged note atherosclerotic calcification of the thoracic aort a. There is mild pulmonary vascular congestion. Trace pleural effusions are suspected. Atelectasis is noted at the lung bases. No pneumothorax is seen. The skeletal structures are osteopenic. The bony t horax is grossly intact. Arthritic change is noted in the shoulders. IMPRESSION: 1. Cardiomegaly and cardiac pacemaker with mild pulmonary vascular congestion. 2. Suspect trace pleural effusions. ACT 112: Negative or not required by law. Electronically signed by: Jb Mckinney M.D. 11/07/2022 2:13 PM
[2022-11-07 14:44] LABS: Basophils # (auto) 0.05 K/uL (0-0.2); Basophils % (auto) 0.4 %; Eosinophils # (auto) 0.03 K/uL (0-0.50); Eosinophils % (auto) 0.2 %; Hematocrit (blood only) 38.4 % (42.0-52.0); Immature Granulocytes # (auto) 0.07 K/uL (0.01-0.20); Immature Granulocytes % (auto) 0.6 %; Lymphocytes # (auto) 1.47 K/uL (1.2-3.4); Mean Corpuscular Hemoglobin 30.2 pg (25.0-34.0); Mean Corpuscular Hgb Conc 31.3 g/dL (32.0-36.0); Mean Corpuscular Volume 96.5 fL (80.0-100.0); Mean Platelet Volume 10.1 fL (9.4-12.4); Monocytes # (auto) 0.87 K/uL (0.11-0.59); Monocytes % (auto) 7.1 %; Neutrophils # (auto) 9.73 K/uL (1.40-6.50); Neutrophils % (auto) 79.7 %; Platelet Count 342 K/uL (130-400); RDW Coefficient of Variation 15.8 % (11.5-14.5); RDW Standard Deviation 55.2 fL (36.4-46.3); Red Blood Count 3.98 M/uL (4.70-6.10); White Blood Count 12.22 K/ul (4.8-10.8)
[2022-11-07 15:01] LABS: Alanine Aminotransferase 7 U/L (7-52); Albumin Globulin Ratio 1.3 (0.9-2); Albumin Level 3.9 gm/dl (3.4-5.0); Alkaline Phosphatase 76 U/L (34-104); Anion Gap 13 (3-11); Aspartate Aminotransferase 13 U/L (13-39); BUN Creatinine Ratio 20.8 (10-20); Bilirubin,Total 0.7 mg/dl (0.2-1.0); Blood Urea Nitrogen 20 mg/dl (6-23); Calcium 9.7 mg/dl (8.6-10.3); Carbon Dioxide 26 mmol/L (21-32); Chloride 100 mmol/L (98-107); Est GFR (Non-African American) 75.9 ml/min; Globulin 2.9 gm/dl (2.5-4.0); Glucose 156 mg/dl (70-99(Fasting)); Lipase 24 U/L (11-82); Potassium 3.9 mmol/L (3.5-5.1); Sodium 139 mmol/L (136-145); Total Protein 6.8 gm/dl (6.0-8.3)
[2022-11-07 15:07] LABS: Troponin I High Sensitivity 27.1 pg/ml (0-20)
--- NOTE | 2022-11-07 15:54 | History & Physical Report ---
Date of Service November 07, 2022 Assessment & Plan (1) Acute on chronic diastolic (congestive) heart failure: Plan: Heart failure syndrome reported. Although he denies weight gain he does report swelling, CRUZ, PND and orthopnea. Now with chest pain. CXR with fluid present. Dias catheter placement now and start intravenous lasix. Consider nitropaste if chest pain returns. IV Lasix, jardiance. BNP ordered. Daily EKG. Trend cardiac troponin to rule out ACS. EKG reviewed and afib with RVR rate of 110 bpm and nonspecific intraventricular conduction block present. Trend EKG daily. Consult cardiology. (2) Epistaxis: Plan: significant recurrent epistaxis in the past 10 days, with packing and cautery at an outside ER. Currently he is off ASA and apixaban, and recurrent epistaxis episode occured yesterday with blood clot in place in the right nare. Consulted ENT for assistance. Hold all blood thinners at this time. (3) Permanent atrial fibrillation: Plan: Elevated heart rates (RVR) in the setting of acute heart failure. Will cont on home metoprolol and monitor hemodynamic response to Lasix. Monitor on telemetry overnight. Anticoagulation is contraindicated in the setting of epistaxis. (4) CAD (coronary artery disease): Plan: h/o nonobstructive CAD per cardiac catheterization in Feb 2010. Continues on ASA, Crestor with recent hold of ASA x 10 days as above. (5) DM type 2 (diabetes mellitus, type 2): Plan: chronic, uncontrolled with last A1C 9.3 in Jul 2022. Hold metformin and cont with insulin. Cont with jardiance for heart failure purposes. (6) CKD (chronic kidney disease), stage III: Plan: chronic, at goal. Cont to monitor BMP with Lasix administration. (7) Sleep apnea: Plan: s/p UPPP, he doesn't wear a CPAP mask (8) Tachy-aquiles syndrome: Plan: s/p pacemaker in 2013 (9) Hypertension: Plan: chronic, at goal on Lasix and hydralazine. also takes spironolactone daily. Cont home meds except Lasix which is being given intravenously. SCDs/ambulation Full code per my conversation with him on admission. Dispo-to telemetry. PT[facility]OT [facility] of Present Illness Chief Complaint: chest pain and SOB with exertion x 1 week Primary Care Provider: Cyndi Rich MD The patient is a 77-year-old man with history of diabetes, CAD, CKD stage III, tachybradycardia syndrome status post pacemaker and paroxysmal atrial fibrillation on apixaban who presents with worsening shortness of breath and chest pain for the past week. The patient reports progressive shortness of breath with exertion along with weight gain since his discharge from the hospital in August. He reports new onset chest pain since yesterday in the left anterior chest wall with no radiation that is described as under the breast, sharp and resolved when he rested. Chest pain lasted less than 5 minutes but occurred reliably as he exerted himself. He denies any new diaphoresis or heart palpitations but shortness of breath is associated with this pain and there is some occasional nausea. Notably, he has been dealing with epistaxis for the past 10 days and has been off Eliquis and aspirin during this time. He has been seeing providers in [place] and do avila for periodic packing in his naris. His right nare began bleeding again last night spontaneously. He held compression with a cool rag and this developed a blood clot which is still in place in his right nare. He reports not feeling any postnasal drip present currently but did feel this yesterday. He reports an ENT appointment scheduled on with a doctor and do avila. Most notably he cannot walk without getting short of breath only just a few steps. He does not typically use oxygen at baseline and is not needing any oxygen at rest. His baseline functional status is much further than this. He does at baseline have 3 pillow orthopnea and sleeps in a recliner and does report PND at night. [facility]. Review of systems reveals weight loss despite eating although when he reviewed his diet with me, he is not eating enough calories. He denies extra salt intake recently. Allergies Allergy/AdvReac Type Severity Reaction Status Date / Time No Known Allergies Allergy Verified 11/07/22 15:54 Home Medications Medication Instructions Recorded Confirmed Type aspirin 81 mg tablet,delayed 81 mg PO DAILY ##0 03/23/15 11/07/22 History release metformin 500 mg tablet,extended 2,000 mg PO QAM #0 tabs 03/23/15 11/07/22 History release 24 hr nitroglycerin 0.4 mg sublingual 0.4 mg sublingual Q5M PRN Chest 03/23/15 11/07/22 History tablet (Nitrostat) Pain #0 BTLS rosuvastatin 10 mg tablet 10 mg PO QAM #0 tabs 03/23/15 11/07/22 History apixaban 5 mg tablet 5 mg PO BID ##0 12/10/15 11/07/22 History acetaminophen 500 mg tablet 500 mg PO Q8H PRN Pain #0 tabs 09/13/16 11/07/22 History lidocaine 5 % topical patch 1 patch topical DAILY PRN Pain ##0 09/13/16 11/07/22 History cyanocobalamin (vitamin B-12) 500 500 mcg PO QAM 08/14/22 11/07/22 History mcg tablet empagliflozin 25 mg tablet 25 mg PO QAM 08/14/22 11/07/22 History (Jardiance) hydralazine 25 mg tablet 12.5 mg PO BID 08/14/22 11/07/22 History furosemide 40 mg tablet 40 mg PO QAM #30 tabs 08/16/22 11/07/22 Rx metoprolol succinate 50 mg 100 mg PO BID #120 tabs 09/15/22 11/07/22 Rx tablet,extended release 24 hr spironolactone 25 mg tablet 12.5 mg PO DAILY #15 tabs 09/15/22 11/07/22 Rx Past Med/Surg History Medical History (Updated 11/07/22 @ 16:43 by Bhargavi Miranda, DO) Aortic root enlargement CAD (coronary artery disease) "Non-obstructive by cath in 2009" Chronic diastolic CHF (congestive heart failure), NYHA class 1 "Echo 05/2015- EF 65-69%, grade II diastolic dysfunction, mild AV regurgitation, mildly enlarged aortic root and proximal ascending aorta" On 03/24/15 09:50 Kylah Tilley wrote "Echo in 06/2013 showed EF 60-65%, grade 2 diastolic dysfunction" CKD (chronic kidney disease), stage III COVID-19 DM type 2 (diabetes mellitus, type 2) Hypertension Hypoxia Permanent atrial fibrillation Sleep apnea "s/p UPPP" Tachy-aquiles syndrome "S/P pacemaker in 2013" Surgical History (Updated 11/07/22 @ 16:15 by Bhargavi Miranda DO) History of hernia surgery Previous back surgery Family History (Updated 11/07/22 @ 16:15 by Bhargavi Miranda DO) Brother Heart disease Mother Stroke Father Stroke Social History Smoking Status: Never smoker Second Hand Exposure: No; Do You Dip or Chew Tobacco: No; Hx Alcohol Use: No Hx Substance Use: No Preferred Language: Upper Sorbian Communication Ability: Effective Mud Engineer Required: No Beliefs That Will Affect Care: None Current Living Situation: Family Current Living Situation Comment: daughters live with him Feels Safe at Home: Yes Assistive Devices: Cane and Walker Review of Systems Review of Systems: All systems were reviewed and negative except as indicated on HPI above. Physical Exam Physical Exam: CONSTITUTIONAL: WNWD, vitals as above, generally well-appearing, NAD EYES: normal conjunctivae, no scleral icterus ENT: right nare with dried large blood clot blocking the orifice, no maxillary or ethmoid sinus tenderness, mucous membranes are moist and normal oropharynx. NECK: trachea midline, no lymphadenopathy RESPIRATORY: clear to auscultation bilaterally, no crackles, rales or wheezes, normal respiratory effort CARDIOVASCULAR: irregular rate and rhythm, S1 and 2 heard without murmurs, gallops or rubs, no JVD, 1+ peripheral edema bilaterally with chronic venous stasis changes (erythroderma) GASTROINTESTINAL: soft, nontender, ND, no guarding MUSCULOSKELETAL: strength 5/5 throughout, head is normocephalic and atraumatic SKIN: warm and dry NEUROLOGIC: CN 2-12 grossly intact, no sensory deficit, normal cognition, normal speech, no tremor PSYCHIATRIC: alert cooperative and oriented to person, place and time. Euthymic mood, makes good eye contact, language grossly intact, recent and remote memory grossly intact. Results & Data Results & Data Vital Signs (Past 12 Hours) Vital Signs Temp Pulse Resp BP Pulse Ox O2 Del Method 11/07/22 14:34 97 H 11/07/22 14:04 Room Air 11/07/22 14:04 Room Air 11/07/22 14:04 36.4 C L 123 H 14 121/84 98 Room Air Laboratory Results Short CBC 11/07/22 Range/Units 14:04 WBC 12.22 H (4.8-10.8) K/ul Hgb 12.0 L (14.0-18.0) g/dl Hct 38.4 L (42.0-52.0) % Plt Count 342 (130-400) K/uL BMP 11/07/22 14:04 Sodium 139 Potassium 3.9 Chloride 100 Carbon Dioxide 26 BUN 20 Creatinine 0.96 Glucose 156 H Calcium 9.7 Liver Function 11/07/22 Range/Units 14:04 Total Bilirubin 0.7 (0.2-1.0) mg/dl AST 13 (13-39) U/L ALT 7 (7-52) U/L Alkaline Phosphatase 76 (34-104) U/L Albumin 3.9 (3.4-5.0) gm/dl Diagnostic Findings Chest X-Ray 11/07/22 13:58 SINGLE VIEW CHEST CLINICAL HISTORY: Atypical chest pain FINDINGS: An AP, portable, upright chest radiograph is compared to study dated 09/09/2022. The examination is degraded by portable technique and apical lordotic positioning. A 2-lead cardiac pacemaker is unchanged in position. The heart is enlarged note atherosclerotic calcification of the thoracic aorta. There is mild pulmonary vascular congestion. Trace pleural effusions are suspected. Atelectasis is noted at the lung bases. No pneumothorax is seen. The skeletal structures are osteopenic. The bony thorax is grossly intact. Arthritic change is noted in the shoulders. IMPRESSION: 1. Cardiomegaly and cardiac pacemaker with mild pulmonary vascular congestion. 2. Suspect trace pleural effusions. ACT 112: Negative or not required by law. Electronically signed by: Jb Mckinney M.D. 11/07/2022 2:13 PM Code Status & VTE Plan VTE Prophylaxis Plan VTE Prophylaxis will be ordered: Yes
[2022-11-07] MEDS ORDERED: FUROSEMIDE 40 MG/4 ML VIAL IV STA (16:25)
[2022-11-07] MEDS ORDERED: METOPROLOL TARTRATE 1 MG/ML VIAL IV STA ×2 (17:02→20:27)
--- NOTE | 2022-11-07 17:15 | Electrocardiogram Report ---
Test Reason : Blood Pressure : / mmHG Vent. Rate : 110 BPM Atrial Rate : 000 BPM P-R Int : 000 ms QRS Dur : 140 ms QT Int : 378 ms P-R-T Axes : 000 -33 146 degrees QTc Int : 511 ms Atrial fibrillation with rapid ventricular response with occasional ventricular-paced complexes Left axis deviation Left bundle branch block Abnormal ECG When compared with ECG of 09-SEP-2022 04:10, Vent. rate has increased BY 5 BPM Confirmed by Titi Puga ([id number]) on 11/07/2022 5:14:43 PM Referred By: Confirmed By:Best Puga
[2022-11-07] MEDS: NITROGLYCERIN 2% OINTMENT 30GM TUBE EXT SCH (17:16)
[2022-11-07] MEDS ORDERED: POLYETHYLENE (MIRALAX) 17 GM PACK PO PRN (19:33)
[2022-11-07] MEDS ORDERED: GLUCOSE 10 TAB/TUBE PO PRN (19:33)
[2022-11-07] MEDS ORDERED: LIDOCAINE 5% 1 PATCH TD PRN (19:33)
[2022-11-07] MEDS ORDERED: GLUCOSE 40% GEL 15 GM TUBE PO PRN (19:33)
[2022-11-07] MEDS ORDERED: DEXTROSE 50% 50 ML SYRINGE IV PRN (19:33)
[2022-11-07] MEDS ORDERED: GLUCAGON FOR INJ 1 MG VIAL SQ PRN (19:33)
[2022-11-07] MEDS ORDERED: ALUMINUM/MAGNESIUM SUSP 30 ML UDC PO PRN (19:33)
[2022-11-07] MEDS ORDERED: CARBOHYDRATES FOR HYPOGLYCEMIA PO PRN (19:33)
[2022-11-07] MEDS: METOPROLOL SUCC 50MG EXT REL TAB PO SCH (20:39)
[2022-11-07] MEDS: LANTUS PER UNIT CHARGE SQ SCH (20:40)
[2022-11-07] MEDS: INSULIN ASPART PER UNIT CHARGE SC SCH (20:52)
[2022-11-08] MEDS: NITROGLYCERIN 2% OINTMENT 30GM TUBE EXT SCH ×4 (00:05→11:39)
[2022-11-08 02:26] LABS: Hematocrit (blood only) 38.1 % (42.0-52.0); Hemoglobin 12.3 g/dl (14.0-18.0); Mean Corpuscular Hemoglobin 30.6 pg (25.0-34.0); Mean Corpuscular Hgb Conc 32.3 g/dL (32.0-36.0); Mean Corpuscular Volume 94.8 fL (80.0-100.0); Mean Platelet Volume 10.3 fL (9.4-12.4); Platelet Count 352 K/uL (130-400); RDW Coefficient of Variation 15.7 % (11.5-14.5); RDW Standard Deviation 54.2 fL (36.4-46.3); Red Blood Count 4.02 M/uL (4.70-6.10); White Blood Count 11.21 K/ul (4.8-10.8)
[2022-11-08 02:31] LABS: Calcium 9.2 mg/dl (8.6-10.3); Creatinine Clr Calc Pharmacy 52.9 ml/min; Est GFR (African American) 75.5 ml/min; Est GFR (Non-African American) 65.1 ml/min; Magnesium 1.9 mg/dl (1.7-2.4); Potassium 3.8 mmol/L (3.5-5.1)
[2022-11-08 07:01] LABS: Estimated Average Glucose 154 mg/dl
[2022-11-08] MEDS: LANTUS PER UNIT CHARGE SQ SCH ×2 (08:33→20:32)
[2022-11-08] MEDS: INSULIN ASPART PER UNIT CHARGE SC SCH ×4 (08:33→20:33)
[2022-11-08] MEDS: METOPROLOL SUCC 50MG EXT REL TAB PO SCH ×2 (08:34→20:32)
[2022-11-08] MEDS: EMPAGLIFLOZIN 25 MG TAB PO SCH (08:34)
[2022-11-08] MEDS: CYANOCOBALAMIN (B-12) 500 MCG TABLET PO SCH (08:34)
[2022-11-08] MEDS: ROSUVASTATIN CALCIUM 10 MG TAB PO SCH (08:35)
--- NOTE | 2022-11-08 08:46 | Cardiology Consultation ---
Date of Consultation November 08, 2022 Assessment & Plan (1) Acute on chronic diastolic (congestive) heart failure: (2) Permanent atrial fibrillation: (3) Tachy-aquiles syndrome: (4) Cardiac pacemaker in situ: (5) Epistaxis: (6) Elevated troponin: Plan IMPRESSION: 77-year-old male with acute on chronic diastolic CHF and permanent atrial fibrillation with current rapid ventricular rates. H/o TBS s/p PPM (2013) Echo revealing a mildly reduced LVEF 45-50%, mild global hypokinesis- likely due to tachycardic rates while in AFIB. Patient examining hypervolemic with notable pitting edema to bilateral knees, orthopnea, and shortness of breath. Heart rates remain tachycardic with rates in the 120s to 140s. He has been holding his Eliquis due to epistaxis. HS troponin likely related to demand given hypervolemia with acute CHF and AFIB RVR. PLAN: 1. Heart rates remain elevated- will given an additional 50 mg metoprolol succinate now. Otherwise, continue metoprolol succinate 100 mg twice daily- will reassess rates thru the day on telemetry. 2. With diuresis heart rates should improve, continue Lasix 40 mg IV twice daily. Increase spironolactone to 25 mg daily. Strict I&O with Dias cath. BMP tomorrow am. 3. STAT D-dimer to be obtained. Eliquis currently on hold due to epistaxis. 4. Supplemental o2 as needed. Case discussed with Dr. Angela- will follow. Supervising Physician Co-Signing Physician Notes Patient was seen and personally examined. Plan as outlined above. Atrial fibrillation rates trending towards better control with increase beta-temo therapy. Patient responding to IV diuretics Anticoagulation remains on hold but patient aware of potential risk Ultimately would like to resume anticoagulation once bleeding source evaluated History of Present Illness Reason for Consultation: Acute on chronic diastolic CHF A-fib RVR Requesting Physician: Marleni bennett Attending Physician: Ant Celis MD History of Present Illness 77-year-old medically complex male presenting to the [facility] emergency department initially due to progressive shortness of breath, chest pain, and weight gain x1 week. Symptoms occured quickly- denied any missed medications, has been watching his diet- eating low sodium foods. He also has been dealing with epistaxis for the past 10 days and was seen at an outside provider at [facility] periodically for packing of his naris, had cautery completed on Monday. He has been holding his Eliquis and aspirin. EKG in the emergency department showed atrial fibrillation with heart rates in the 110s. Dias catheter was placed and patient was started on IV Lasix. Echo: LVEF mildly reduced at 45 to 50% with borderline global hypokinesis of the left ventricle. Septal motion consistent with conduction abnormality. Mild aortic regurgitation and mild to moderate MR. Telemetry: AFIB 120-140s I&O: +25 mL Weight: 178 lbs (Last outpatient documented weight was 182 pounds) As an outpatient he normally maintains on furosemide 40 mg daily, Aldactone 12.5 mg daily, Jardiance 25 mg daily, metoprolol succinate 100 mg twice daily, and hydralazine 12.5 mg twice daily. Upon entrance into the room patient resting in bed. Notes ongoing shortness of breath with any minimal activity. Right nare has a visible clot, patient states he is having a hard time breathing because of it. Requiring supplemental oxygen therapy-chronic. Denies any recurrent chest discomfort. No palpitations. Notable orthopnea. Pitting lower extremity edema up to the knees. Past medical history: 1.Chronic diastolic CHF, NYHA class 3 2.Paroxysmal now permanent atrial fibrillation, amiodarone discontinued 11/2021. Anticoagulated on Eliquis 3.Tachybradycardia syndrome, status post dual-chamber permanent pacemaker 07/23/2013 4.Hypertension with hypertensive heart disease 5.Nonobstructive CAD per cardiac catheterization 02/2010 6.Enlarged aortic root and ascending aorta, 4.1 cm/4.3 cm respectively 7.LIZZIE with nocturnal hypoxia, wears supplemental oxygen therapy a.Elevated hemoglobin and hematocrit, mildly elevated EPO-suspected secondary to untreated LIZZIE and/or chronic hypoxemia 8.Dyslipidemia 9.CKD stage III Allergies Allergy/AdvReac Type Severity Reaction Status Date / Time No Known Allergies Allergy Verified 11/07/22 15:54 Home Medications Medication Instructions Recorded Confirmed Type aspirin 81 mg tablet,delayed 81 mg PO DAILY ##0 03/23/15 11/07/22 History release metformin 500 mg tablet,extended 2,000 mg PO QAM #0 tabs 03/23/15 11/07/22 History release 24 hr nitroglycerin 0.4 mg sublingual 0.4 mg sublingual Q5M PRN Chest 03/23/15 History tablet (Nitrostat) Pain #0 BTLS rosuvastatin 10 mg tablet 10 mg PO QAM #0 tabs 03/23/15 11/07/22 History apixaban 5 mg tablet 5 mg PO BID ##0 12/10/15 11/07/22 History acetaminophen 500 mg tablet 500 mg PO Q8H PRN Pain #0 tabs 09/13/16 11/07/22 History lidocaine 5 % topical patch 1 patch topical DAILY PRN Pain ##0 09/13/16 11/07/22 History cyanocobalamin (vitamin B-12) 500 500 mcg PO QAM 08/14/22 11/07/22 History mcg tablet empagliflozin 25 mg tablet 25 mg PO QAM 08/14/22 11/07/22 History (Jardiance) hydralazine 25 mg tablet 12.5 mg PO BID 08/14/22 11/07/22 History furosemide 40 mg tablet 40 mg PO QAM #30 tabs 08/16/22 11/07/22 Rx metoprolol succinate 50 mg 100 mg PO BID #120 tabs 09/15/22 11/07/22 Rx tablet,extended release 24 hr spironolactone 25 mg tablet 12.5 mg PO DAILY #15 tabs 09/15/22 11/07/22 Rx Patient History Medical History (Updated 11/08/22 @ 10:51 by TOBIN Sharif) Aortic root enlargement CAD (coronary artery disease) "Non-obstructive by cath in 2009" Chronic diastolic CHF (congestive heart failure), NYHA class 1 "Echo 05/2015- EF 65-69%, grade II diastolic dysfunction, mild AV regurgitation, mildly enlarged aortic root and proximal ascending aorta" On 03/24/15 09:50 Kylah Tilley wrote "Echo in 06/2013 showed EF 60-65%, grade 2 diastolic dysfunction" CKD (chronic kidney disease), stage III COVID-19 DM type 2 (diabetes mellitus, type 2) Hypertension Hypoxia Permanent atrial fibrillation Sleep apnea "s/p UPPP" Tachy-aquiles syndrome "S/P pacemaker in 2013" Surgical History (Updated 11/07/22 @ 16:15 by Bhargavi Miranda, DO) History of hernia surgery Previous back surgery Family History (Updated 11/07/22 @ 16:15 by Bhargavi Miranda, ) Brother Heart disease Mother Stroke Father Stroke Social History Smoking Status: Former smoker Second Hand Exposure: No; Do You Dip or Chew Tobacco: No; Tobacco Cessation Education Requested by Patient: No Hx Alcohol Use: No Hx Substance Use: No Preferred Language: Polish Communication Ability: Effective Securities Sales Associate Required: No Beliefs That Will Affect Care: None Current Living Situation: Family Current Living Situation Comment: daughters live with him Other Information That Helps Us Care for You: No Feels Safe at Home: Yes Safety Concerns: Feels Safe At This Time Assistive Devices: Walker Review of Systems Review of Systems: All systems reviewed & are unremarkable except as noted in HPI & below Physical Exam Constitutional: WD/WN, vitals as above no acute distress ENMT: Nose: + nare abnormality (right nare clot ); no epistaxis (right nare clot) Neck: normal visual inspection and trachea midline Respiratory: normal respiratory effort, lungs clear to auscultation Auscultation: + rales; no rhonchi and no wheezes Cardiovascular: Rate/Rhythm: + tachycardic and + irregularly irregular Heart Sounds: normal S1 and normal S2 Extremities: + edema (+2 BLLE pitting edema to knees ) Gastrointestinal (Abdomen): normal bowel sounds, soft, nontender, no hepatosplenomegaly Skin: no rashes, warm and dry Psychiatric: A+Ox3, euthymic affect Results & Data Vital Signs (Past 12 Hours) Vital Signs Temp Pulse Pulse Resp BP BP Pulse Ox 11/08/22 07:14 37.0 C 127 H 18 126/85 100 11/08/22 06:43 36.7 C 107 H 23 104/63 98 11/08/22 05:08 124/76 11/08/22 03:00 36.5 C 104 H 22 112/77 96 11/07/22 23:51 91 H 11/07/22 23:00 36.5 C 82 23 135/78 11/07/22 22:25 109 H 11/07/22 20:39 124 H 136/92 O2 Del Method O2 Flow Rate 11/08/22 07:14 Oxymask 3.0 11/08/22 06:43 Oxymask 2 11/08/22 05:08 11/08/22 03:00 Room Air 11/07/22 23:51 11/07/22 23:00 Room Air 11/07/22 22:25 11/07/22 20:39 Laboratory Results Cardiac Enzymes 11/07/22 11/07/22 11/07/22 Range/Units 14:04 16:34 19:36 AST 13 (13-39) U/L Troponin I High Sens 27.1 H 27.3 H (0-20) pg/ml B-Natriuretic Peptide 1446 H (0-100) pg/ml 11/08/22 11/08/22 Range/Units 01:48 05:27 AST (13-39) U/L Troponin I High Sens 29.7 H 29.5 H (0-20) pg/ml B-Natriuretic Peptide (0-100) pg/ml Coagulation 11/07/22 Range/Units 16:34 B-Natriuretic Peptide 1446 H (0-100) pg/ml CBC 11/07/22 11/08/22 Range/Units 14:04 01:48 WBC 12.22 H 11.21 H (4.8-10.8) K/ul RBC 3.98 L 4.02 L (4.70-6.10) M/uL Hgb 12.0 L 12.3 L (14.0-18.0) g/dl Hct 38.4 L 38.1 L (42.0-52.0) % Plt Count 342 352 (130-400) K/uL Neut # (Auto) 9.73 H (1.40-6.50) K/uL Lymph # (Auto) 1.47 (1.2-3.4) K/uL Isabel[place] # (Auto) 0.87 H (0.11-0.59) K/uL Eos # (Auto) 0.03 (0-0.50) K/uL Baso # (Auto) 0.05 (0-0.2) K/uL Comprehensive Metabolic Panel 11/07/22 11/08/22 Range/Units 14:04 01:48 Sodium 139 138 (136-145) mmol/L Potassium 3.9 3.8 (3.5-5.1) mmol/L Chloride 100 100 (98-107) mmol/L Carbon Dioxide 26 27 (21-32) mmol/L BUN 20 24 H (6-23) mg/dl Creatinine 0.96 1.09 (0.6-1.4) mg/dl Glucose 156 H 153 H (70-99(Fasting)) mg/dl Calcium 9.7 9.2 (8.6-10.3) mg/dl AST 13 (13-39) U/L ALT 7 (7-52) U/L Alkaline Phosphatase 76 (34-104) U/L Total Protein 6.8 (6.0-8.3) gm/dl Albumin 3.9 (3.4-5.0) gm/dl Intake and Output 11/07/22 11/08/22 11/08/22 22:59 06:59 14:59 Intake Total 400 / 400 Output Total 150 / 375 225 / 375 Balance -150 / 25 175 / 25 Intake: Oral 400 / 400 Output: Urine Amount (Catheter) 150 / 375 225 / 375 Dias/Indwelling 150 / 375 225 / 375 Other: Weight 79.3 kg 80.9 kg Weight Measurement Method [facility] Diagnostic Findings Echo at [facility] 08/2022 LVEF 50 to 55% Septal motion consistent with conduction abnormality Left atrium severely dilated Mild aortic sclerosis without stenosis Mild to moderate MR Moderate aortic regurgitation Mild TR Pulmonary artery systolic pressure 43 mmHg Dilated IVC Mild aortic root enlargement and mildly dilated ascending aorta
[2022-11-08] MEDS ORDERED: SPIRONOLACTONE 12.5 MG TAB PO SCH (09:00)
[2022-11-08] MEDS: FUROSEMIDE 40 MG/4 ML VIAL IV SCH ×2 (10:29→20:32)
[2022-11-08] MEDS ORDERED: METOPROLOL SUCC 50MG EXT REL TAB PO STA (11:17)
[2022-11-08] MEDS ORDERED: SPIRONOLACTONE 12.5 MG TAB PO ONE (11:20)
[2022-11-08 12:24] LABS: D Dimer 820 ug/L FEU (0-500)
--- NOTE | 2022-11-08 15:23 | Hospitalist Progress Note ---
Date of Service November 08, 2022 Assessment & Plan (1) Acute on chronic diastolic (congestive) heart failure: Plan: Presented with progressive shortness of breath, chest pain and weight gain for 1 week x-ray personally reviewed; cardiomegaly with mild pulmonary edema present. BNP significantly elevated Echocardiogram reviewed; EF of 45 to 50% with borderline global hypokinesis of left ventricle. Continue on IV Lasix 40 mg twice daily. Currently has Dias. Will remove as soon as patient is starts to feel better(likely tomorrow) Discussed with cardiology; A-fib to be controlled with metoprolol and continue on Lasix. Strict KEISHA's (2) Epistaxis: Plan: significant recurrent epistaxis in the past 10 days, with packing and cautery at an outside ER. Currently he is off ASA and apixaban, and recurrent epistaxis episode occured yesterday with blood clot in place in the right nare. Consulted ENT for assistance. Hold all blood thinners at this time. (3) Permanent atrial fibrillation: Plan: Elevated heart rates (RVR) in the setting of acute heart failure. Metoprolol increased as per cardiology recommendation. Monitor on telemetry overnight. Anticoagulation is contraindicated in the setting of epistaxis. (4) CAD (coronary artery disease): Plan: h/o nonobstructive CAD per cardiac catheterization in Feb 2010. Continues on ASA, Crestor with recent hold of ASA x 10 days as above. (5) DM type 2 (diabetes mellitus, type 2): Plan: chronic, uncontrolled with last A1C 9.3 in Jul 2022. Hold metformin and cont with insulin. Cont with jardiance for heart failure purposes. (6) CKD (chronic kidney disease), stage III: Plan: chronic, at goal. Cont to monitor BMP with Lasix administration. (7) Sleep apnea: Plan: s/p UPPP, he doesn't wear a CPAP mask (8) Tachy-aquiles syndrome: Plan: s/p pacemaker in 2013 (9) Hypertension: Plan: chronic, at goal on Lasix and hydralazine. also takes spironolactone daily. Cont home meds except Lasix which is being given intravenously. SCDs/ambulation Full code Dispo-to telemetry. PT/OT ordered Time spent evaluating patient, direct bedside care, chart review, placing orders, interpretation of diagnostic studies, discussion with consultants, patient, and family members, as well as other required patient management activities is 60 minutes Please note the above document was generated using voice recognition software. It may contain grammatical, syntax or spelling errors. Any formal questions or concerns about the content, text or information contained within the body of this dictation should be directly addressed to the provider for clarification Admission and Anticipated Discharge Date Admission Date: November 07, 2022 Subjective Seen and examined at bedside. He reports shortness of breath at rest. Telemetry shows atrial fibrillation with intermittent paced rhythm. Ventricular rate in the 80s to 120s. Review of Systems Review of Systems: All systems reviewed & are unremarkable except as noted in Subjective Physical Exam Physical Exam: Constitutional: WD/WN, vitals as above, NAD, sitting up in bed, pleasant, conversing easily ENMT: Right nares showed crusted blood. No active bleeding. Respiratory: Bilateral basal crackles present. Cardiovascular: RRR, no murmur, no edema Vessels: no JVD or carotid bruit Chest: normal inspection of chest Abdomen: normal bowel sounds, soft, nontender, no hepatosplenomegaly Musculoskeletal: no cyanosis or clubbing, extremities motor strength 5/5 Skin: no rashes, warm and dry normal turgor Neurologic: PERRL, EOMI, accommodation nl, no face palsy, no dysarthria CN's II- XI intact bilaterally and moves all extremities Psychiatric: A+Ox3, euthymic affect Lymphatic: no cervical or axillary lymphadenopathy : deferred Results & Data Results & Data Vital Signs (Past 12 Hours) Vital Signs Temp Pulse Pulse Resp BP Pulse Ox O2 Del Method 11/08/22 14:21 36.8 C 85 18 113/76 96 Oxymask 11/08/22 13:46 80 11/08/22 13:39 Oxymask 11/08/22 10:59 36.8 C 115 H 22 138/83 95 Oxymask 11/08/22 07:14 37.0 C 127 H 18 126/85 100 Oxymask 11/08/22 06:43 36.7 C 107 H 23 104/63 98 Oxymask 11/08/22 05:08 124/76 O2 Flow Rate 11/08/22 14:21 3.0 11/08/22 13:46 11/08/22 13:39 11/08/22 10:59 2 11/08/22 07:14 3.0 11/08/22 06:43 2 11/08/22 05:08 Laboratory Results Laboratory Results WBC 11.21 K/ul (4.8-10.8) H 11/08/22 01:48 RBC 4.02 M/uL (4.70-6.10) L 11/08/22 01:48 Hgb 12.3 g/dl (14.0-18.0) L 11/08/22 01:48 Hct 38.1 % (42.0-52.0) L 11/08/22 01:48 MCV 94.8 fL (80.0-100.0) 11/08/22 01:48 MCH 30.6 pg (25.0-34.0) 11/08/22 01:48 MCHC 32.3 g/dL (32.0-36.0) 11/08/22 01:48 RDW Std Deviation 54.2 fL (36.4-46.3) H 11/08/22 01:48 RDW Coeff of Mavis 15.7 % (11.5-14.5) H 11/08/22 01:48 Plt Count 352 K/uL (130-400) 11/08/22 01:48 MPV 10.3 fL (9.4-12.4) 11/08/22 01:48 Immature Gran % (Auto) 0.6 % 11/07/22 14:04 Neut % (Auto) 79.7 % 11/07/22 14:04 Lymph % (Auto) 12.0 % 11/07/22 14:04 [place] % (Auto) 7.1 % 11/07/22 14:04 Eos % (Auto) 0.2 % 11/07/22 14:04 Baso % (Auto) 0.4 % 11/07/22 14:04 Neut # (Auto) 9.73 K/uL (1.40-6.50) H 11/07/22 14:04 Lymph # (Auto) 1.47 K/uL (1.2-3.4) 11/07/22 14:04 [place] # (Auto) 0.87 K/uL (0.11-0.59) H 11/07/22 14:04 Eos # (Auto) 0.03 K/uL (0-0.50) 11/07/22 14:04 Baso # (Auto) 0.05 K/uL (0-0.2) 11/07/22 14:04 Immature Gran # (Auto) 0.07 K/uL (0.01-0.20) 11/07/22 14:04 D-Dimer 820 ug/L FEU (0-500) H* 11/08/22 11:05 Sodium 138 mmol/L (136-145) 11/08/22 01:48 Potassium 3.8 mmol/L (3.5-5.1) 11/08/22 01:48 Chloride 100 mmol/L (98-107) 11/08/22 01:48 Carbon Dioxide 27 mmol/L (21-32) 11/08/22 01:48 Anion Gap 11 (3-11) 11/08/22 01:48 BUN 24 mg/dl (6-23) H 11/08/22 01:48 Creatinine 1.09 mg/dl (0.6-1.4) 11/08/22 01:48 Est Cr Clr Drug Dosing 52.9 ml/min 11/08/22 01:48 Est GFR ( Amer) 75.5 ml/min 11/08/22 01:48 Est GFR (Non-Af Amer) 65.1 ml/min 11/08/22 01:48 BUN/Creatinine Ratio 22.0 (10-20) H 11/08/22 01:48 Glucose 153 mg/dl (70-99(Fasting)) H 11/08/22 01:48 POC Glucose 179 mg/dl (70-99) H 11/08/22 11:20 Estimat Average Glucose 154 mg/dl 11/08/22 01:48 Hemoglobin A1c 7.0 % (4.5-5.6) H 11/08/22 01:48 Calcium 9.2 mg/dl (8.6-10.3) 11/08/22 01:48 Magnesium 1.9 mg/dl (1.7-2.4) 11/08/22 01:48 Total Bilirubin 0.7 mg/dl (0.2-1.0) 11/07/22 14:04 AST 13 U/L (13-39) 11/07/22 14:04 ALT 7 U/L (7-52) 11/07/22 14:04 Alkaline Phosphatase 76 U/L (34-104) 11/07/22 14:04 Troponin I High Sens 29.5 pg/ml (0-20) H 11/08/22 05:27 B-Natriuretic Peptide 1446 pg/ml (0-100) H 11/07/22 16:34 Total Protein 6.8 gm/dl (6.0-8.3) 11/07/22 14:04 Albumin 3.9 gm/dl (3.4-5.0) 11/07/22 14:04 Globulin 2.9 gm/dl (2.5-4.0) 11/07/22 14:04 Albumin/Globulin Ratio 1.3 (0.9-2) 11/07/22 14:04 Lipase 24 U/L (11-82) 11/07/22 14:04 TSH 1.424 uIu/ml (0.300-4.500) 11/07/22 14:04 SARS-CoV-2, RNA, NAAT NEGATIVE (NEGATIVE) 11/07/22 14:40 Impressions Chest X-Ray 11/07/22 13:58 SINGLE VIEW CHEST CLINICAL HISTORY: Atypical chest pain FINDINGS: An AP, portable, upright chest radiograph is compared to study dated 09/09/2022. The examination is degraded by portable technique and apical lordotic positioning. A 2-lead cardiac pacemaker is unchanged in position. The heart is enlarged note atherosclerotic calcification of the thoracic aorta. There is mild pulmonary vascular congestion. Trace pleural effusions are suspected. Atelectasis is noted at the lung bases. No pneumothorax is seen. The skeletal structures are osteopenic. The bony thorax is grossly intact. Arthritic change is noted in the shoulders. IMPRESSION: 1. Cardiomegaly and cardiac pacemaker with mild pulmonary vascular congestion. 2. Suspect trace pleural effusions. ACT 112: Negative or not required by law. Electronically signed by: Jb Mckinney M.D. 11/07/2022 2:13 PM
--- NOTE | 2022-11-08 20:34 | Electrocardiogram Report ---
Test Reason : Blood Pressure : / mmHG Vent. Rate : 110 BPM Atrial Rate : 102 BPM P-R Int : 000 ms QRS Dur : 140 ms QT Int : 346 ms P-R-T Axes : 000 -32 149 degrees QTc Int : 468 ms Atrial fibrillation with rapid ventricular response Left axis deviation Left bundle branch block Abnormal ECG Confirmed by Titi Puga ([id number]) on 11/08/2022 8:34:05 PM Referred By: REFERRED SELF Confirmed By:Best Puga
--- NOTE | 2022-11-08 20:35 | Electrocardiogram Report ---
Test Reason : Blood Pressure : / mmHG Vent. Rate : 136 BPM Atrial Rate : 147 BPM P-R Int : 000 ms QRS Dur : 132 ms QT Int : 346 ms P-R-T Axes : 000 -38 141 degrees QTc Int : 520 ms Atrial fibrillation Left axis deviation Left bundle branch block Abnormal ECG Confirmed by Titi Puga ([id number]) on 11/08/2022 8:34:41 PM Referred By: REFERRED SELF Confirmed By:Best Puga
[2022-11-09 07:53] LABS: Basophils # (auto) 0.04 K/uL (0-0.2); Basophils % (auto) 0.4 %; Eosinophils # (auto) 0.05 K/uL (0-0.50); Eosinophils % (auto) 0.5 %; Hematocrit (blood only) 36.9 % (42.0-52.0); Hemoglobin 11.7 g/dl (14.0-18.0); Immature Granulocytes # (auto) 0.07 K/uL (0.01-0.20); Immature Granulocytes % (auto) 0.7 %; Lymphocytes # (auto) 1.13 K/uL (1.2-3.4); Lymphocytes % (auto) 11.2 %; Mean Corpuscular Hemoglobin 29.6 pg (25.0-34.0); Mean Corpuscular Hgb Conc 31.7 g/dL (32.0-36.0); Mean Corpuscular Volume 93.4 fL (80.0-100.0); Mean Platelet Volume 9.9 fL (9.4-12.4); Monocytes # (auto) 0.91 K/uL (0.11-0.59); Neutrophils # (auto) 7.89 K/uL (1.40-6.50); Neutrophils % (auto) 78.2 %; Platelet Count 309 K/uL (130-400); RDW Coefficient of Variation 15.6 % (11.5-14.5); RDW Standard Deviation 53.2 fL (36.4-46.3); Red Blood Count 3.95 M/uL (4.70-6.10); White Blood Count 10.09 K/ul (4.8-10.8)
[2022-11-09 08:08] LABS: BUN Creatinine Ratio 27.8 (10-20); Calcium 9.4 mg/dl (8.6-10.3); Creatinine Clr Calc Pharmacy 65.5 ml/min; Est GFR (African American) 95.1 ml/min; Est GFR (Non-African American) 82.1 ml/min; Magnesium 1.8 mg/dl (1.7-2.4); Potassium 3.3 mmol/L (3.5-5.1)
[2022-11-09] MEDS: INSULIN ASPART PER UNIT CHARGE SC SCH ×4 (08:34→21:06)
[2022-11-09] MEDS: LANTUS PER UNIT CHARGE SQ SCH ×2 (08:35→21:06)
[2022-11-09] MEDS: METOPROLOL SUCC 25MG EXT REL TAB PO SCH ×2 (08:35→21:12)
[2022-11-09] MEDS: EMPAGLIFLOZIN 25 MG TAB PO SCH (08:37)
[2022-11-09] MEDS: CYANOCOBALAMIN (B-12) 500 MCG TABLET PO SCH (08:38)
[2022-11-09] MEDS: ROSUVASTATIN CALCIUM 10 MG TAB PO SCH (08:38)
[2022-11-09] MEDS ORDERED: POTASSIUM CHLORIDE CRTAB 20 MEQ TABCR PO STA (08:39)
[2022-11-09] MEDS: FUROSEMIDE 40 MG/4 ML VIAL IV SCH ×2 (08:41→21:11)
--- NOTE | 2022-11-09 08:42 | Cardiology Progress Note ---
Date of Service November 09, 2022 Assessment & Plan (1) Acute on chronic diastolic (congestive) heart failure: (2) Permanent atrial fibrillation: (3) Tachy-aquiles syndrome: (4) Cardiac pacemaker in situ: (5) Epistaxis: (6) Elevated troponin: Plan IMPRESSION: 77-year-old male with acute on chronic diastolic CHF and permanent atrial fibrillation with current rapid ventricular rates. H/o TBS s/p PPM (2013) Echo revealing a mildly reduced LVEF 45-50%, mild global hypokinesis- likely due to tachycardic rates while in AFIB. Patient examining hypervolemic with notable pitting edema to bilateral knees, orthopnea, and shortness of breath. Heart rates remain tachycardic with rates in the 120s to 140s. He has been holding his Eliquis due to epistaxis. HS troponin likely related to demand given hypervolemia with acute CHF and AFIB RVR. PLAN: 1. Heart rates remain elevated- Increase metoprolol succinate to 125 mg twice daily. 2. Will start digoxin, load with 0.25 mg now and 0.25 mg at 1600 today. 3. With diuresis heart rates should improve, continue Lasix 40 mg IV twice daily. Continue spironolactone to 25 mg daily. Strict I&O with Dias cath. 4. Hypokalemia noted- 3.3, 40 mg of KCL to be given this am 5. Supplemental o2 as needed. 6. Patient aware of risks with holding of AC, resume Eliquis once bleeding has stopped- may need to see ENT regarding left nare epistaxis. Case discussed with Dr. Angela- will follow. Admission and Anticipated Discharge Date Admission Date: November 07, 2022 Supervising Physician Co-Signing Physician Notes Patient was seen and personally examined. Plan as outlined above. Atrial fibrillation rates trending towards better control but still elevated. We will begin digoxin as noted. Pacemaker in place Patient clinically improving with diuresis and less dyspneic Subjective 77-year-old male who initially presented to [facility] due to acute on chronic diastolic CHF and permanent atrial fibrillation with RVR. Has been suffering from left nare epistaxis and has been following with an outside ENT provider. Has required packing and cauterization. Echo revealed a mildly reduced LVEF of 45 to 50% (normally low normal at 50- 55%). 11/08: Tachycardic rates on telemetry-an additional 50 mg of metoprolol succinate was given in addition to 100 mg twice daily. Diuresed with IV Lasix 40 mg twice daily. Aldactone increased to 25 mg daily. Anticoagulation on hold due to nosebleeds. 11/09: Telemetry: A-fib in the 110s I&O: -1.6L Weight: 80>>83 kg Labs: Hypokalemia, 3.3. Renal function stable. Upon entrance into the room patient setting in the chair after getting cleaned up. Feels improved- notes less shortness of breath with activity and leg swelling is improved. No chest pain. Still requiring supplemental o2 therapy, doesn't normally wear at home. Using oxymask due to nasal clot. No further bleeding. Review of Systems Review of Systems: All systems reviewed & are unremarkable except as noted in HPI & below Physical Exam Constitutional: WD/WN, vitals as above no acute distress ENMT: Nose: + nare abnormality (right nare clot ); no epistaxis (right nare clot) Neck: normal visual inspection and trachea midline Respiratory: normal respiratory effort; no respiratory distress Auscultation: + rales (bibasilar ); no rhonchi and no wheezes Cardiovascular: Rate/Rhythm: + tachycardic and + irregularly irregular Heart Sounds: normal S1 and normal S2 Extremities: + edema (+2 BLLE pitting edema to knees ) Gastrointestinal (Abdomen): normal bowel sounds, soft, nontender, no hepatosplenomegaly Skin: no rashes, warm and dry Psychiatric: A+Ox3, euthymic affect Results & Data Vital Signs (Past 12 Hours) Vital Signs Temp Pulse Pulse Resp BP Pulse Ox O2 Del Method 11/09/22 07:53 36.6 C 99 H 19 123/75 99 Oxymask 11/09/22 01:27 109 H 11/09/22 03:00 36.8 C 92 H 20 154/93 H 96 Oxymask 11/08/22 23:00 36.5 C 96 H 18 126/82 100 Oxymask O2 Flow Rate 11/09/22 07:53 2.5 11/09/22 01:27 11/09/22 03:00 3 11/08/22 23:00 2 Laboratory Results CBC 11/09/22 Range/Units 07:27 WBC 10.09 (4.8-10.8) K/ul RBC 3.95 L (4.70-6.10) M/uL Hgb 11.7 L (14.0-18.0) g/dl Hct 36.9 L (42.0-52.0) % Plt Count 309 (130-400) K/uL Neut # (Auto) 7.89 H (1.40-6.50) K/uL Lymph # (Auto) 1.13 L (1.2-3.4) K/uL [place] # (Auto) 0.91 H (0.11-0.59) K/uL Eos # (Auto) 0.05 (0-0.50) K/uL Baso # (Auto) 0.04 (0-0.2) K/uL Comprehensive Metabolic Panel 11/09/22 Range/Units 07:27 Sodium 139 (136-145) mmol/L Potassium 3.3 L (3.5-5.1) mmol/L Chloride 100 (98-107) mmol/L Carbon Dioxide 30 (21-32) mmol/L BUN 25 H (6-23) mg/dl Creatinine 0.90 (0.6-1.4) mg/dl Glucose 78 (70-99(Fasting)) mg/dl Calcium 9.4 (8.6-10.3) mg/dl Intake and Output 11/08/22 11/09/22 11/09/22 22:59 06:59 14:59 Intake Total 100 / 540 Output Total 750 / 2251 600 / 2251 Balance -650 / -1711 -600 / -1711 Intake: Oral 100 / 540 Output: Urine Amount (Catheter) 750 / 2250 600 / 2250 Dias/Indwelling 750 / 2250 600 / 2250 Other: Weight 80.9 kg 83 kg Weight Measurement Method Built in [facility]
[2022-11-09] MEDS ORDERED: POTASSIUM CHLORIDE CRTAB 20 MEQ TABCR PO SCH (09:00)
[2022-11-09] MEDS ORDERED: SPIRONOLACTONE 25 MG TAB PO SCH (09:00)
[2022-11-09] MEDS ORDERED: DIGOXIN 0.25 MG TAB PO ONE (11:15)
[2022-11-09] MEDS: ACETAMINOPHEN 325 MG TAB PO PRN (12:19)
[2022-11-09] MEDS ORDERED: ACETAMINOPHEN 325 MG TAB ONE (12:22)
[2022-11-09] MEDS ORDERED: Nursing to Pharmacy Communication SCH (14:00)
[2022-11-09] MEDS ORDERED: DIGOXIN 0.25 MG TAB PO SCH ×2 (16:00)
--- NOTE | 2022-11-09 16:51 | Hospitalist Progress Note ---
Date of Service November 09, 2022 Assessment & Plan (1) Acute on chronic diastolic (congestive) heart failure: Plan: per Dr. Celis's notes with addendum: Presented with progressive shortness of breath, chest pain and weight gain for 1 week x-ray personally reviewed; cardiomegaly with mild pulmonary edema present. BNP significantly elevated Echocardiogram reviewed; EF of 45 to 50% with borderline global hypokinesis of left ventricle. Continue on IV Lasix 40 mg twice daily. Currently has Dias. Will remove as soon as patient is starts to feel better(likely tomorrow) Discussed with cardiology; A-fib to be controlled with metoprolol and continue on Lasix. Strict KEISHA's 11/09 Continue diuresis with Lasix IV 40 mg daily (2) Epistaxis: Plan: significant recurrent epistaxis in the past 10 days, with packing and cautery at an outside ER. Currently he is off ASA and apixaban, and recurrent epistaxis episode occured yesterday with blood clot in place in the right nare. Consulted ENT for assistance. Hold all blood thinners at this time. 11/09 No recurrence Aspirin and Eliquis on hold Awaiting ENT evaluation (3) Permanent atrial fibrillation: Plan: Elevated heart rates (RVR) in the setting of acute heart failure. Metoprolol increased as per cardiology recommendation. Monitor on telemetry overnight. Anticoagulation is contraindicated in the setting of epistaxis. 11/09 Heart rate in the 90 Continue metoprolol Eliquis on hold in light of #2 (4) CAD (coronary artery disease): Plan: h/o nonobstructive CAD per cardiac catheterization in Feb 2010. Continues on ASA, Crestor with recent hold of ASA x 10 days as above. (5) DM type 2 (diabetes mellitus, type 2): Plan: chronic, uncontrolled with last A1C 9.3 in Jul 2022. Hold metformin and cont with insulin. Cont with jardiance for heart failure purposes. (6) CKD (chronic kidney disease), stage III: Plan: chronic, at goal. Cont to monitor BMP with Lasix administration. (7) Sleep apnea: Plan: s/p UPPP, he doesn't wear a CPAP mask (8) Tachy-aquiles syndrome: Plan: s/p pacemaker in 2013 (9) Hypertension: Plan: chronic, at goal on Lasix and hydralazine. also takes spironolactone daily. Cont home meds except Lasix which is being given intravenously. SCDs/ambulation Full code Dispo-pending May need acute rehab or retirement facility PT OT evaluate plan of care discussed with patient in detail and at length all questions answered he is understanding, agreeable, comfortable with the plan of care Admission and Anticipated Discharge Date Admission Date: November 07, 2022 Subjective Follow-up for CHF, A-fib, etc. Seen resting in bed, comfortable, not distressed States he feels fine overall No shortness of breath or chest pain No recurrence of epistaxis No other new issue Review of Systems Review of Systems: all noted and negative except for above Physical Exam Physical Exam: General- oriented x 3, not in distress, speaks in sentences with no effort or accessory muscle use Eyes- anicteric Neck- no JVD Lungs- clear breath sounds bilaterally, no rales/wheezes Heart- normal rate, regular rhythm; no murmurs Abdomen- normal bowel sounds, nondistended, soft, nontender Extremities- no pretibial edema, no calf tenderness Neuro- alert, oriented x 3; no gross focal neurologic deficits Skin- warm & dry Results & Data Results & Data Vital Signs (Past 12 Hours) Vital Signs Temp Pulse Pulse Resp BP Pulse Ox O2 Del Method 11/09/22 16:18 36.7 C 97 H 18 122/73 95 Room Air 11/09/22 16:12 98 H 11/09/22 13:39 95 11/09/22 11:55 36.6 C 85 19 109/69 96 Room Air 11/09/22 11:24 88 11/09/22 09:50 Oxymask 11/09/22 09:00 101 H 11/09/22 07:53 36.6 C 99 H 19 123/75 99 Oxymask O2 Flow Rate 11/09/22 16:18 11/09/22 16:12 11/09/22 13:39 11/09/22 11:55 11/09/22 11:24 11/09/22 09:50 11/09/22 09:00 11/09/22 07:53 2.5 all noted and reviewed including below
--- NOTE | 2022-11-09 16:53 | Electrocardiogram Report ---
Test Reason : Blood Pressure : / mmHG Vent. Rate : 097 BPM Atrial Rate : 094 BPM P-R Int : 000 ms QRS Dur : 150 ms QT Int : 410 ms P-R-T Axes : 000 -42 152 degrees QTc Int : 520 ms Atrial fibrillation with occasional ventricular-paced complexes Left axis deviation Left bundle branch block Abnormal ECG When compared with ECG of 08-NOV-2022 10:22, (unconfirmed) Electronic ventricular pacemaker has replaced Atrial fibrillation Confirmed by Titi Puga ([id number]) on 11/09/2022 4:53:32 PM Referred By: REFERRED SELF Confirmed By:Best Puga
--- NOTE | 2022-11-09 16:53 | Electrocardiogram Report ---
Test Reason : Blood Pressure : / mmHG Vent. Rate : 106 BPM Atrial Rate : 117 BPM P-R Int : 000 ms QRS Dur : 142 ms QT Int : 334 ms P-R-T Axes : 000 -41 148 degrees QTc Int : 443 ms Atrial fibrillation with rapid ventricular response Left axis deviation Left bundle branch block Abnormal ECG When compared with ECG of 08-NOV-2022 05:13, Left bundle branch block has replaced Non-specific intra-ventricular conduction block Minimal criteria for Anteroseptal infarct are no longer Present Criteria for Inferior infarct are no longer Present Confirmed by Titi Puga ([id number]) on 11/09/2022 4:53:18 PM Referred By: REFERRED SELF Confirmed By:Best Puga
[2022-11-10 06:46] LABS: BUN Creatinine Ratio 29.4 (10-20); Calcium 9.3 mg/dl (8.6-10.3); Creatinine Clr Calc Pharmacy 56.9 ml/min; Est GFR (African American) 81.8 ml/min; Est GFR (Non-African American) 70.6 ml/min; Potassium 3.3 mmol/L (3.5-5.1)
[2022-11-10] MEDS: INSULIN ASPART PER UNIT CHARGE SC SCH ×4 (08:06→20:18)
[2022-11-10] MEDS: LANTUS PER UNIT CHARGE SQ SCH ×2 (08:07→20:20)
[2022-11-10] MEDS: METOPROLOL SUCC 25MG EXT REL TAB PO SCH ×2 (08:27→20:13)
[2022-11-10] MEDS: EMPAGLIFLOZIN 25 MG TAB PO SCH (08:28)
[2022-11-10] MEDS: CYANOCOBALAMIN (B-12) 500 MCG TABLET PO SCH (08:28)
[2022-11-10] MEDS: ROSUVASTATIN CALCIUM 10 MG TAB PO SCH (08:28)
--- NOTE | 2022-11-10 08:28 | Cardiology Progress Note ---
Date of Service November 10, 2022 Assessment & Plan (1) Acute on chronic diastolic (congestive) heart failure: (2) Permanent atrial fibrillation: (3) Tachy-aquiles syndrome: (4) Cardiac pacemaker in situ: (5) Epistaxis: (6) Elevated troponin: Plan IMPRESSION: 77-year-old male with acute on chronic diastolic CHF and permanent atrial fibrillation with current rapid ventricular rates. H/o TBS s/p PPM (2013) Echo revealing a mildly reduced LVEF 45-50%, mild global hypokinesis- likely due to tachycardic rates while in AFIB. Patient previously examining hypervolemic with notable pitting edema to bilateral knees, orthopnea, and shortness of breath- improving, down about 4L Heart rates remain tachycardic with rates in the 120s to 140s. He has been holding his Eliquis due to epistaxis. HS troponin likely related to demand given hypervolemia with acute CHF and AFIB RVR. PLAN: 1. Heart rates improving- Continue metoprolol succinate to 125 mg twice daily. 2. Started digoxin, loaded x2 doses of 0.25 mg (11/09)- with improved rates will continue digoxin, patient to receive 0.125 mg this evening. Patient has a pacemaker. 3. Volume status improving still remains mildly hypervolemic, continue Lasix 40 mg twice daily, will transition to PO this afternoon. Potassium remains low despite K replacement, increase spironolactone to 25 mg twice daily. Strict I&O with Dias cath. Repeat BMP tomorrow am. 4. Supplemental o2 as needed. 5. Patient aware of risks with holding of AC, resume Eliquis once bleeding has stopped- may need to see ENT regarding left nare epistaxis. Case discussed with Dr. Angela- will follow. Admission and Anticipated Discharge Date Admission Date: November 07, 2022 Supervising Physician Co-Signing Physician Notes Patient was seen and personally examined. Plan as outlined above. Atrial fibrillation rates are improving. Tolerating increased dose of metoprolol as well as digoxin in addition. Has had good diuresis over past 24 hours. Plan transition furosemide to oral, increase spironolactone to 25 mg twice per day as above. Subjective 77-year-old male who initially presented to [facility] due to acute on chronic diastolic CHF and permanent atrial fibrillation with RVR. Has been suffering from left nare epistaxis and has been following with an outside ENT provider. Has required packing and cauterization. Echo revealed a mildly reduced LVEF of 45 to 50% (normally low normal at 50- 55%). 11/08: Tachycardic rates on telemetry-an additional 50 mg of metoprolol succinate was given in addition to 100 mg twice daily. Diuresed with IV Lasix 40 mg twice daily. Aldactone increased to 25 mg daily. Anticoagulation on hold due to nosebleeds. 11/09: Telemetry: A-fib in the 110s Metoprolol increased to 125 mg twice daily Digoxin started, patient was given x2 doses of 0.25 mg. Hypokalemia noted- KCL replacement given 11/10: Tele: AFIB with PVCs 70-80s I&O: -4.1L Weight: 79.3 kg >> 80.4 kg Hypokalemia noted- 3.3 Upon entrance into the room patient resting comfortably in the chair. No longer requiring o2 during the day. Denied shortness of breath. Leg swelling improved and noted mostly around the ankle/pedal location. No chest pain or palpitations. No dizziness/lightheadedness. Denies further episodes of nose bleeding- clot in left nare. Review of Systems Review of Systems: All systems reviewed & are unremarkable except as noted in HPI & below Physical Exam Constitutional: WD/WN, vitals as above no acute distress ENMT: Nose: + nare abnormality (right nare clot ); no epistaxis (right nare clot) Neck: normal visual inspection and trachea midline Respiratory: normal respiratory effort, lungs clear to auscultation normal respiratory effort; no respiratory distress Auscultation: + rales (BL base); no rhonchi and no wheezes Cardiovascular: Rate/Rhythm: regular rate and + irregularly irregular Heart Sounds: normal S1 and normal S2 Extremities: + edema (+1 BLLE pitting ankles/pedal) Gastrointestinal (Abdomen): normal bowel sounds, soft, nontender, no hepatosplenomegaly Skin: no rashes, warm and dry Psychiatric: A+Ox3, euthymic affect Results & Data Vital Signs (Past 12 Hours) Vital Signs Temp Pulse Resp BP Pulse Ox O2 Del Method 11/10/22 03:00 36.9 C 77 20 113/77 Oxymask 11/09/22 23:00 36.8 C 76 18 139/78 99 Oxymask 11/09/22 21:06 Room Air Laboratory Results Comprehensive Metabolic Panel 11/10/22 Range/Units 06:17 Sodium 139 (136-145) mmol/L Potassium 3.3 L (3.5-5.1) mmol/L Chloride 99 (98-107) mmol/L Carbon Dioxide 33 H (21-32) mmol/L BUN 30 H (6-23) mg/dl Creatinine 1.02 (0.6-1.4) mg/dl Glucose 89 (70-99(Fasting)) mg/dl Calcium 9.3 (8.6-10.3) mg/dl Intake and Output 11/09/22 11/10/22 11/10/22 22:59 06:59 14:59 Intake Total 520 / 520 Output Total 825 / 3025 2200 / 3025 Balance -305 / -2505 -2200 / -2505 Intake: Oral 520 / 520 Output: Urine Amount (Catheter) 825 / 3025 2200 / 3025 Dias/Indwelling 825 / 3025 2200 / 3025 Other: Weight 80.4 kg Weight Measurement Method Built in [facility]
[2022-11-10] MEDS: FUROSEMIDE 40 MG/4 ML VIAL IV SCH (08:29)
[2022-11-10] MEDS: POTASSIUM CHLORIDE CRTAB 20 MEQ TABCR PO SCH (08:35)
[2022-11-10] MEDS ORDERED: POTASSIUM CHLORIDE CRTAB 20 MEQ TABCR PO SCH (09:00)
[2022-11-10] MEDS ORDERED: SPIRONOLACTONE 25 MG TAB PO SCH (09:00)
[2022-11-10] MEDS ORDERED: DIGOXIN 0.125 MG TAB PO SCH (16:00)
[2022-11-10] MEDS: FUROSEMIDE 40 MG TAB PO SCH (16:52)
--- NOTE | 2022-11-10 17:36 | Hospitalist Progress Note ---
Date of Service November 10, 2022 Assessment & Plan (1) Acute on chronic diastolic (congestive) heart failure: Plan: (1) Acute on chronic diastolic (congestive) heart failure: Plan: per Dr. Celis's notes with addendum: Presented with progressive shortness of breath, chest pain and weight gain for 1 week x-ray personally reviewed; cardiomegaly with mild pulmonary edema present. BNP significantly elevated Echocardiogram reviewed; EF of 45 to 50% with borderline global hypokinesis of left ventricle. Continue on IV Lasix 40 mg twice daily. Currently has Dias. Will remove as soon as patient is starts to feel better(likely tomorrow) Discussed with cardiology; A-fib to be controlled with metoprolol and continue on Lasix. Strict KEISHA's 11/10 diuresing well Continue diuresis with Lasix IV 40 mg BID (2) Epistaxis: Plan: significant recurrent epistaxis in the past 10 days, with packing and cautery at an outside ER. Currently he is off ASA and apixaban, and recurrent epistaxis episode occured yesterday with blood clot in place in the right nare. Consulted ENT for assistance. Hold all blood thinners at this time. 11/10 No recurrence Aspirin and Eliquis on hold ENT recommends outpatient evaluation (3) Permanent atrial fibrillation: Plan: Elevated heart rates (RVR) in the setting of acute heart failure. Metoprolol increased as per cardiology recommendation. Monitor on telemetry overnight. Anticoagulation is contraindicated in the setting of epistaxis. 11/10 Heart rate in the 90s Continue metoprolol, Digoxin Eliquis on hold in light of #2 (4) CAD (coronary artery disease): Plan: h/o nonobstructive CAD per cardiac catheterization in Feb 2010. Continues on ASA, Crestor with recent hold of ASA x 10 days as above. (5) DM type 2 (diabetes mellitus, type 2): Plan: chronic, uncontrolled with last A1C 9.3 in Jul 2022. Hold metformin and cont with insulin. Cont with jardiance for heart failure purposes. (6) CKD (chronic kidney disease), stage III: Plan: chronic, at goal. Cont to monitor BMP with Lasix administration. (7) Sleep apnea: Plan: s/p UPPP, he doesn't wear a CPAP mask (8) Tachy-aquiles syndrome: Plan: s/p pacemaker in 2013 (9) Hypertension: Plan: chronic, at goal on Lasix and hydralazine. also takes spironolactone daily. Cont home meds except Lasix which is being given intravenously. SCDs/ambulation Full code Dispo-pending May need acute rehab or group home facility PT OT evaluate plan of care discussed with patient in detail and at length all questions answered he is understanding, agreeable, comfortable with the plan of care Admission and Anticipated Discharge Date Admission Date: November 07, 2022 Subjective ff up for CHF, etc seen resting in chair, comfortable states he feels improved compared to yesterday breathing improving no chest pain no recurrence of epistaxis no other symptoms Review of Systems Review of Systems: all noted and negative except for above Physical Exam Physical Exam: General- oriented x 3, not in distress, speaks in sentences with no effort or accessory muscle use Eyes- anicteric Neck- no JVD Lungs-mild rales at the bases Heart- normal rate, regular rhythm; no murmurs Abdomen- normal bowel sounds, nondistended, soft, no tenderness Extremities- no pretibial edema, no calf tenderness Genitalia- (+) edema of the penile skin Neuro- alert, oriented x 3; no gross focal neurologic deficits Skin- warm & dry Results & Data Results & Data Vital Signs (Past 12 Hours) Vital Signs Temp Pulse Pulse Resp BP Pulse Ox O2 Del Method 11/10/22 16:51 91 H 11/10/22 16:31 37.0 C 88 18 120/78 96 Room Air 11/10/22 15:20 98 11/10/22 14:13 82 11/10/22 11:37 36.5 C 76 16 121/73 96 Room Air 11/10/22 06:00 80 11/10/22 08:00 Room Air 11/10/22 07:28 36.4 C L 76 18 115/67 100 Oxymask 11/10/22 08:26 36.4 C L 102 H 18 130/76 98 Room Air O2 Flow Rate 11/10/22 16:51 11/10/22 16:31 11/10/22 15:20 11/10/22 14:13 11/10/22 11:37 11/10/22 06:00 11/10/22 08:00 11/10/22 07:28 2.0 11/10/22 08:26 all noted and reviewed including below
[2022-11-10] MEDS: ACETAMINOPHEN 325 MG TAB PO PRN (20:17)
--- NOTE | 2022-11-11 07:35 | Cardiology Progress Note ---
Date of Service November 11, 2022 Assessment & Plan (1) Acute on chronic diastolic (congestive) heart failure: (2) Permanent atrial fibrillation: (3) Tachy-aquiles syndrome: (4) Cardiac pacemaker in situ: (5) Epistaxis: (6) Elevated troponin: Plan IMPRESSION: 77-year-old male with acute on chronic diastolic CHF and permanent atrial fibrillation with current rapid ventricular rates. H/o TBS s/p PPM (2013) Echo revealing a mildly reduced LVEF 45-50%, mild global hypokinesis- likely due to tachycardic rates while in AFIB. Patient previously examining hypervolemic with notable pitting edema to bilateral knees, orthopnea, and shortness of breath- improving, down about 7L Heart rates improved. He has been holding his Eliquis due to epistaxis. HS troponin elevation likely related to demand given hypervolemia with acute CHF and AFIB RVR. PLAN: 1. Heart rates improving- Continue metoprolol succinate to 125 mg twice daily at discharge. 2. Started digoxin (11/09), continue 0.125 mg daily at discharge. Patient has a pacemaker. 3. Patient appears well compensated from a volume standpoint. Continue oral Lasix- recommend discharging on oral Lasix 60 mg daily. Potassium level improving- discharge home on spironolactone 50 mg daily. No additional K supplementation at discharge needed. Will plan on BMP AND digoxin level in 1 week as an outpatient. Strict I&O 4. Supplemental o2 as needed. 5. Patient aware of risks with holding of AC- has been on hold for over 2 weeks now. Nasal clot fell out yesterday- no further bleeding since last Saturday 11/04. Hold Eliquis until evaluated by ENT as an outpatient- recommend within 1 week. Case discussed with Dr. Julieta Aguila for discharge from a cardiology standpoint. Admission and Anticipated Discharge Date Admission Date: November 07, 2022 Supervising Physician Co-Signing Physician Notes Patient seen and examined and personally reviewed. Congestive heart failure substantially improved heart rates now under good control with underlying intermittent paced rhythm. We will continue to hold anticoagulation until ENT evaluation Patient agreeable to plan as above Subjective 77-year-old male who initially presented to [facility] due to acute on chronic diastolic CHF and permanent atrial fibrillation with RVR. Has been suffering from left nare epistaxis and has been following with an outside ENT provider. Has required packing and cauterization. Echo revealed a mildly reduced LVEF of 45 to 50% (normally low normal at 50- 55%). 11/08: Tachycardic rates on telemetry-an additional 50 mg of metoprolol succinate was given in addition to 100 mg twice daily. Diuresed with IV Lasix 40 mg twice daily. Aldactone increased to 25 mg daily. Anticoagulation on hold due to nosebleeds. 11/09: Telemetry: A-fib in the 110s Metoprolol increased to 125 mg twice daily Digoxin started, patient was given x2 doses of 0.25 mg. 11/10: Tele: AFIB with PVCs 70-80s I&O: -4.1L Weight: 79.3 kg >> 80.4 kg Heart rates improving, digoxin reduced to 0.125 mg daily. IV Lasix transition to oral, 40 mg twice daily Spironolactone increased to 25 mg twice daily 11/11: Telemetry: AFIB with PVCs 70s I&O: -6.9L Weight: 79.3>>78.3 kg Upon entrance into the room patient resting comfortably in the chair. No longer requiring o2 during the day. Denied shortness of breath. Leg swelling resolved, chronic venous statis changes present. No chest pain or palpitations. No dizziness/lightheadedness. Noted poor sleep last evening due to frequent urination with Lasix- Dias has since been removed. Denies further episodes of nose bleeding- clot in right nare fell out last evening. No further nasal bleeding. Review of Systems Review of Systems: All systems reviewed & are unremarkable except as noted in HPI & below Physical Exam Constitutional: WD/WN, vitals as above no acute distress Eyes: PERRL, conjunctivae normal, anicteric sclerae ENMT: Nose: no nare abnormality and no epistaxis Neck: normal visual inspection and trachea midline Respiratory: normal respiratory effort, lungs clear to auscultation Auscultation: no rales, no rhonchi and no wheezes Cardiovascular: Rate/Rhythm: regular rate and + irregularly irregular Heart Sounds: normal S1 and normal S2 Extremities: + edema (trace BL chronic venous stasis changes ) Gastrointestinal (Abdomen): normal bowel sounds, soft, nontender, no hepatosplenomegaly Skin: no rashes, warm and dry Psychiatric: A+Ox3, euthymic affect Results & Data Vital Signs (Past 12 Hours) Vital Signs Temp Pulse Pulse Resp BP Pulse Ox O2 Del Method 11/11/22 07:00 94 H 11/11/22 03:33 36.5 C 86 18 127/66 95 Room Air 11/10/22 22:52 36.7 C 84 18 147/78 H 95 Room Air 11/10/22 20:10 108 H Laboratory Results Comprehensive Metabolic Panel 11/11/22 Range/Units 06:57 Sodium 138 (136-145) mmol/L Potassium 3.9 (3.5-5.1) mmol/L Chloride 98 (98-107) mmol/L Carbon Dioxide 32 (21-32) mmol/L BUN 31 H (6-23) mg/dl Creatinine 0.80 (0.6-1.4) mg/dl Glucose 90 (70-99(Fasting)) mg/dl Calcium 9.6 (8.6-10.3) mg/dl Intake and Output 11/10/22 11/11/22 11/11/22 22:59 06:59 14:59 Intake Total 290 / 290 Output Total 2375 / 3050 675 / 3050 Balance -2085 / -2760 -675 / -2760 Intake: Oral 290 / 290 Output: Urine 1175 / 1850 675 / 1850 Urine Amount (Catheter) 1200 / 1200 Dias/Indwelling 1200 / 1200 Other: Other Intake Source sip Weight 78.3 kg Weight Measurement Method Built in [facility]
[2022-11-11 07:51] LABS: BUN Creatinine Ratio 38.8 (10-20); Calcium 9.6 mg/dl (8.6-10.3); Creatinine Clr Calc Pharmacy 71.6 ml/min; Est GFR (African American) 99.9 ml/min; Est GFR (Non-African American) 86.2 ml/min; Magnesium 1.8 mg/dl (1.7-2.4); Potassium 3.9 mmol/L (3.5-5.1)
[2022-11-11] MEDS: METOPROLOL SUCC 25MG EXT REL TAB PO SCH (08:37)
[2022-11-11] MEDS: CYANOCOBALAMIN (B-12) 500 MCG TABLET PO SCH (08:37)
[2022-11-11] MEDS: POTASSIUM CHLORIDE CRTAB 20 MEQ TABCR PO SCH (08:37)
[2022-11-11] MEDS: EMPAGLIFLOZIN 25 MG TAB PO SCH (08:38)
[2022-11-11] MEDS: ROSUVASTATIN CALCIUM 10 MG TAB PO SCH (08:38)
[2022-11-11] MEDS: LANTUS PER UNIT CHARGE SQ SCH (08:43)
[2022-11-11] MEDS: INSULIN ASPART PER UNIT CHARGE SC SCH ×2 (08:43→12:00)
[2022-11-11] MEDS ORDERED: SPIRONOLACTONE 25 MG TAB PO SCH (09:00)
[2022-11-11] MEDS: FUROSEMIDE 40 MG TAB PO SCH (09:12)
[2022-11-11] MEDS ORDERED: FUROSEMIDE 20 MG TAB PO ONE (10:12)
[2022-11-11] MEDS ORDERED: SPIRONOLACTONE 25 MG TAB PO ONE (10:30)
--- NOTE | 2022-11-11 13:46 | Urology Consultation ---
Date of Consultation November 11, 2022 Assessment & Plan (1) Penile [id number]-year-old male admitted for acute on chronic congestive heart failure with volume overload and A-fib with RVR. - Urology consulted for penile swelling. - He is afebrile and hemodynamically stable. - Patient's volume overload has improved with diuresis. Patient reports he has been unable to replace his foreskin for a few years. He denies penile pain or acute change from his baseline. On exam he does have a tight phimotic ring with some swelling and redundant skin noted between the band and the glans. No tenderness. He is voiding without difficulty. Given that this has been present for what sounds like a long period of time without acute change or acute pain, there is likely no acute intervention needed at this time. Discussed case with Dr. Mercer, urologist on-call. He will also assess and examine patient at bedside. See attending note for further details on plan of care. Supervising Physician Co-Signing Physician Notes Very interesting case. Saw patient personally and performed an exam and discussed options. Patient reports penile swelling for several years without ever having discomfort. Denies any discomfort now. He is sure that he is uncircumcised and does report years ago he was able to pull his foreskin down over the penis. He actually prefers the foreskin the way it is now as it allows him to have a bett er urinary stream. Patient is currently admitted due to exacerbation of heart failure and has been fluid overloaded so this does make his penile swelling somewhat unclear as to what the overall cause is. On physical exam, he does have some coronal swelling. The glans is soft, nontender and nonerythematous. The shaft is nontender nonerythematous as well. He does have what appears to be a possible phimotic band around the distal shaft with some mild cracking of the skin. I attempted for several minutes to gently pull what I believed to be his foreskin back over the head of the penis. This did cause him discomfort and he requested that I discontinue. I discussed the concern for possible paraphimosis and the risks of this. That being said, this is not a very clear picture as he reports no pain and his penis has been like this for several years. He requested that I leave it the way it is and I honored that wish. Even if this is paraphimosis, it appears to have been going on for several years and not causing him any significant issues. I will plan on seeing him back in clinic in a month for repeat evaluation. If the swelling has gone down, I suspect this is just due to fluid overload. If it persists I can again try to retract his foreskin if he desires. I have never seen this chronic of a paraphimosis but as its not causing him issues and he actually prefers the way his penis is now, I think it is reasonable to leave the issue alone per his request. History of Present Illness Reason for Consultation: penile edema Requesting Physician: Dr. Gifford Attending Physician: Kamron Gifford MD History of Present Illness This is a 77-year-old male with history of diabetes, CAD, CKD stage III, tachybradycardia syndrome status post pacemaker and paroxysmal atrial fibrillation on apixaban who presented to the emergency department on 11/07/22 with worsening shortness of breath and chest pain x 1 week and was admitted to the medicine service for acute on chronic heart failure and permanent atrial fibrillation with RVR. Urology is consulted for penile edema. Patient was hypervolemic on arrival. He has been diuresed during admission and is down approximately 7L per notes. Cardiology following. Patient had Dias initially, but it has been removed and he is voiding spontaneously. He is afebrile and hemodynamically stable. Today's labs show creatinine 0.80, hemoglobin 11.7, WBC 10.09. Patient seen and examined at bedside this afternoon. He is awake and sitting up in bedside chair. Subjectively feeling well, reports improvement since arrival. He is voiding without difficulty. Urine is clear yellow in urinal. No dysuria or hematuria. He reports that he is uncircumcised. He reports that has been unable to replace his foreskin for a few years. He denies penile pain. No fever or chills. No nausea or vomiting. No additional concerns. Allergies Allergy/AdvReac Type Severity Reaction Status Date / Time No Known Allergies Allergy Verified 11/07/22 15:54 Home Medications Medication Instructions Recorded Confirmed Type aspirin 81 mg tablet,delayed 81 mg PO DAILY ##0 03/23/15 11/07/22 History release metformin 500 mg tablet,extended 2,000 mg PO QAM #0 tabs 03/23/15 11/07/22 History release 24 hr nitroglycerin 0.4 mg sublingual 0.4 mg sublingual Q5M PRN Chest 03/23/15 11/07/22 History tablet (Nitrostat) Pain #0 BTLS rosuvastatin 10 mg tablet 10 mg PO QAM #0 tabs 03/23/15 11/07/22 History apixaban 5 mg tablet 5 mg PO BID ##0 12/10/15 11/07/22 History acetaminophen 500 mg tablet 500 mg PO Q8H PRN Pain #0 tabs 09/13/16 11/07/22 History lidocaine 5 % topical patch 1 patch topical DAILY PRN Pain ##0 09/13/16 11/07/22 History cyanocobalamin (vitamin B-12) 500 500 mcg PO QAM 08/14/22 11/07/22 History mcg tablet empagliflozin 25 mg tablet 25 mg PO QAM 08/14/22 11/07/22 History (Jardiance) metoprolol succinate 50 mg 100 mg PO BID #120 tabs 09/15/22 11/07/22 Rx tablet,extended release 24 hr digoxin 125 mcg (0.125 mg) tablet 0.125 mg PO DAILY@1600 30 days #30 11/11/22 Rx (Digitek) tabs furosemide 20 mg tablet 60 mg PO QAM 30 days #90 tabs 11/11/22 Rx metoprolol succinate 25 mg 25 mg PO BID 30 days #60 tabs 11/11/22 Rx tablet,extended release 24 hr spironolactone 25 mg tablet 50 mg PO QAM 30 days #60 tabs 11/11/22 Rx Patient History Medical History Aortic root enlargement CAD (coronary artery disease) "Non-obstructive by cath in 2009" Chronic diastolic CHF (congestive heart failure), NYHA class 1 "Echo 05/2015- EF 65-69%, grade II diastolic dysfunction, mild AV regurgitation, mildly enlarged aortic root and proximal ascending aorta" On 03/24/15 09:50 Kylah Tilley wrote "Echo in 06/2013 showed EF 60-65%, grade 2 diastolic dysfunction" CKD (chronic kidney disease), stage III COVID-19 DM type 2 (diabetes mellitus, type 2) Hypertension Hypoxia Permanent atrial fibrillation Sleep apnea "s/p UPPP" Tachy-aquiles syndrome "S/P pacemaker in 2014" Surgical History History of hernia surgery Previous back surgery Family History Brother Heart disease Mother Stroke Father Stroke Social History Smoking Status: Former smoker Second Hand Exposure: No; Do You Dip or Chew Tobacco: No; Tobacco Cessation Education Requested by Patient: No Hx Alcohol Use: No Hx Substance Use: No Preferred Language: Jordanian Communication Ability: Effective Benefits Analyst Required: No Beliefs That Will Affect Care: None Current Living Situation: Family Current Living Situation Comment: daughters live with him Other Information That Helps Us Care for You: No Feels Safe at Home: Yes Safety Concerns: Feels Safe At This Time Assistive Devices: Walker Review of Systems Review of Systems: All systems reviewed & are unremarkable except as noted in HPI & below Physical Exam Constitutional: well developed and well nourished; no acute distress Respiratory: normal respiratory effort; no respiratory distress and no labored breathing Cardiovascular: Extremities: + edema (trace lower extremity edema) Gastrointestinal (Abdomen): Inspection/Auscultation: abdomen normal to inspect ion; abdomen not distended Musculoskeletal: Head/Neck/Chest: normocephalic Neurologic: moves all extremities and awake Psychiatric: Orientation: alert and oriented x 3 Genitourinary: There is band of tissue/phimotic ring midway on penile shaft. There is some swelling and redundant skin between the glans and phimotic ring. Nontender to palpation. No increased erythema. Results & Data Vital Signs (Past 12 Hours) Vital Signs Temp Pulse Pulse Pulse Resp BP BP 11/11/22 11:14 36.5 C 69 18 128/73 11/11/22 09:00 11/11/22 08:16 36.4 C L 68 18 132/73 11/11/22 07:00 94 H 11/11/22 03:33 36.5 C 86 18 127/66 Pulse Ox O2 Del Method 11/11/22 11:14 98 Room Air 11/11/22 09:00 Room Air 11/11/22 08:16 99 Room Air 11/11/22 07:00 11/11/22 03:33 95 Room Air PG Care Time/CCT Total # of Minutes Spent Total Time Spent with Patient: Total time spent is greater than 50% in coordination of care (as documented) at patient's floor/unit and/or counseling patient: Coding Level of Care Code 01895 INT INP/OBS CARE 1/40MIN Diagnoses Penile swelling N48.89 Time Spent (min) 45
[2022-11-11] MEDS ORDERED: DIGOXIN 0.125 MG TAB PO SCH (16:00)
--- NOTE | 2022-11-11 18:08 | Hospitalist Progress Note ---
Date of Service November 11, 2022 Assessment & Plan (1) Acute on chronic diastolic (congestive) heart failure: Plan: (1) Acute on chronic diastolic (congestive) heart failure: Plan: per Dr. Celis's notes with addendum: Presented with progressive shortness of breath, chest pain and weight gain for 1 week x-ray personally reviewed; cardiomegaly with mild pulmonary edema present. BNP significantly elevated Echocardiogram reviewed; EF of 45 to 50% with borderline global hypokinesis of left ventricle. 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 11/11 diuresed well discharge plan: Lasix 60mg PO daily Aldactone 50mg PO daily ff up with Cardiology in 1 week (2) Epistaxis: Plan: significant recurrent epistaxis in the past 10 days, with packing and cautery at an outside ER. Currently he is off ASA and apixaban, and recurrent epistaxis episode occured yesterday with blood clot in place in the right nare. Consulted ENT for assistance. Hold all blood thinners at this time. 11/11 No recurrence Aspirin and Eliquis on hold until ok with ENT ENT recommends outpatient ff up, requested to schedule patient next week (3) Permanent atrial fibrillation: Plan: Elevated heart rates (RVR) in the setting of acute heart failure. Metoprolol increased as per cardiology recommendation. Monitor on telemetry overnight. Anticoagulation is contraindicated in the setting of epistaxis. 11/11 Heart rate in the 90s Metoprolol XL increased to 125mg BID Digoxin 0.125mg po daily added Eliquis on hold in light of #2 (4) CAD (coronary artery disease): Plan: h/o nonobstructive CAD per cardiac catheterization in Feb 2010. Continues on ASA, Crestor with recent hold of ASA x 10 days as above. (5) DM type 2 (diabetes mellitus, type 2): Plan: chronic, uncontrolled with last A1C 9.3 in Jul 2022. Hold metformin and cont with insulin. Cont with jardiance for heart failure purposes. (6) CKD (chronic kidney disease), stage III: Plan: chronic, at goal. Cont to monitor BMP with Lasix administration. (7) Sleep apnea: Plan: s/p UPPP, he doesn't wear a CPAP mask (8) Tachy-aquiles syndrome: Plan: s/p pacemaker in 2013 (9) Hypertension: Plan: chronic, at goal on Lasix and hydralazine. also takes spironolactone daily. Cont home meds except Lasix which is being given intravenously. SCDs/ambulation Full code Dispo-d/c home with home health ff up with Cardio in 1 week ff up with PCP in 1 week plan of care discussed with patient in detail and at length all questions answered he is understanding, agreeable, comfortable with the plan of care Admission and Anticipated Discharge Date Admission Date: November 07, 2022 Subjective ff up for CHF, etc seen resting in chair, comfortable states he feels much better overall no chest pain, dyspnea, palpitations, dizziness no recurrence of hemoptysis no other new symptoms Review of Systems Review of Systems: all noted and negative except for above Physical Exam Physical Exam: General- oriented x 3, not in distress, speaks in sentences with no effort or accessory muscle use Eyes- anicteric Neck- no JVD Lungs- clear breath sounds bilaterally, no rales/wheezes Heart- normal rate, regular rhythm; no murmurs Abdomen- normal bowel sounds, nondistended, soft, nontender Extremities- no pretibial edema, no calf tenderness Neuro- alert, oriented x 3; no gross focal neurologic deficits Skin- warm & dry Results & Data Results & Data Vital Signs (Past 12 Hours) Vital Signs Temp Pulse Pulse Pulse Resp BP BP 11/11/22 14:36 36.5 C 86 69 18 128/73 127/66 11/11/22 11:14 36.5 C 69 18 128/73 11/11/22 09:00 11/11/22 08:16 36.4 C L 68 18 132/73 11/11/22 07:00 94 H Pulse Ox O2 Del Method 11/11/22 14:36 98 11/11/22 11:14 98 Room Air 11/11/22 09:00 Room Air 11/11/22 08:16 99 Room Air 11/11/22 07:00 all noted and reviewed including below
--- NOTE | 2022-11-11 18:16 | Discharge Summary ---
Discharge Summary Date of Service November 11, 2022 Notes For Next Care Provider Repeat BMP and digoxin level 1 week postdischarge Medication Changes From Visit Metoprolol XL increased to 125 mg twice a day Digoxin 0.125 mg p.o. daily added Lasix increased to 60 mg p.o. daily Aldactone 50 mg p.o. daily added Admission HPI Per Admitting Provider The patient is a 77-year-old man with history of diabetes, CAD, CKD stage III, tachybradycardia syndrome status post pacemaker and paroxysmal atrial fibrillation on apixaban who presents with worsening shortness of breath and chest pain for the past week. The patient reports progressive shortness of breath with exertion along with weight gain since his discharge from the hospital in August. He reports new onset chest pain since yesterday in the left anterior chest wall with no radiation that is described as under the breast, sharp and resolved when he rested. Chest pain lasted less than 5 minutes but occurred reliably as he exerted himself. He denies any new diaphoresis or heart palpitations but shortness of breath is associated with this pain and there is some occasional nausea. Notably, he has been dealing with epistaxis for the past 10 days and has been off Eliquis and aspirin during this time. He has been seeing providers in [place] and do avila for periodic packing in his naris. His right nare began bleeding again last night spontaneously. He held compression with a cool rag and this developed a blood clot which is still in place in his right nare. He reports not feeling any postnasal drip present currently but did feel this yesterday. He reports an ENT appointment scheduled on with a doctor and do avila. Most notably he cannot walk without getting short of breath only just a few steps. He does not typically use oxygen at baseline and is not needing any oxygen at rest. His baseline functional status is much further than this. He does at baseline have 3 pillow orthopnea and sleeps in a recliner and does report PND at night. He sees [facility] cardiology as outpatient. Review of systems reveals weight loss despite eating although when he reviewed his diet with me, he is not eating enough calories. He denies extra salt intake recently. Admission Exam Per Admitting Provider CONSTITUTIONAL: WNWD, vitals as above, generally well-appearing, NAD EYES: normal conjunctivae, no scleral icterus ENT: right nare with dried large blood clot blocking the orifice, no maxillary or ethmoid sinus tenderness, mucous membranes are moist and normal oropharynx. NECK: trachea midline, no lymphadenopathy RESPIRATORY: clear to auscultation bilaterally, no crackles, rales or wheezes, normal respiratory effort CARDIOVASCULAR: irregular rate and rhythm, S1 and 2 heard without murmurs, gallops or rubs, no JVD, 1+ peripheral edema bilaterally with chronic venous stasis changes (erythroderma) GASTROINTESTINAL: soft, nontender, ND, no guarding MUSCULOSKELETAL: strength 5/5 throughout, head is normocephalic and atraumatic SKIN: warm and dry NEUROLOGIC: CN 2-12 grossly intact, no sensory deficit, normal cognition, normal speech, no tremor PSYCHIATRIC: alert cooperative and oriented to person, place and time. Euthymic mood, makes good eye contact, language grossly intact, recent and remote memory grossly intact. Principal Dx & Hospital Course #1 = Principal Diagnosis (1) Acute on chronic diastolic (congestive) heart failure: (1) Acute on chronic diastolic (congestive) heart failure: Plan: per Dr. Celis's notes with addendum: Presented with progressive shortness of breath, chest pain and weight gain for 1 week x-ray personally reviewed; cardiomegaly with mild pulmonary edema present. BNP significantly elevated Echocardiogram reviewed; EF of 45 to 50% with borderline global hypokinesis of left ventricle. 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 11/11 diuresed well discharge plan: Lasix 60mg PO daily Aldactone 50mg PO daily ff up with Cardiology in 1 week (2) Epistaxis: Plan: significant recurrent epistaxis in the past 10 days, with packing and cautery at an outside ER. Currently he is off ASA and apixaban, and recurrent epistaxis episode occured yesterday with blood clot in place in the right nare. Consulted ENT for assistance. Hold all blood thinners at this time. 11/11 No recurrence Aspirin and Eliquis on hold until ok with ENT ENT recommends outpatient ff up, requested to schedule patient next week (3) Permanent atrial fibrillation: Plan: Elevated heart rates (RVR) in the setting of acute heart failure. Metoprolol increased as per cardiology recommendation. Monitor on telemetry overnight. Anticoagulation is contraindicated in the setting of epistaxis. 11/11 Heart rate in the 90s Metoprolol XL increased to 125mg BID Digoxin 0.125mg po daily added Eliquis on hold in light of #2 (4) CAD (coronary artery disease): Plan: h/o nonobstructive CAD per cardiac catheterization in Feb 2010. Continues on ASA, Crestor with recent hold of ASA x 10 days as above. (5) DM type 2 (diabetes mellitus, type 2): Plan: chronic, uncontrolled with last A1C 9.3 in Jul 2022. Hold metformin and cont with insulin. Cont with jardiance for heart failure purposes. (6) CKD (chronic kidney disease), stage III: Plan: chronic, at goal. Cont to monitor BMP with Lasix administration. (7) Sleep apnea: Plan: s/p UPPP, he doesn't wear a CPAP mask (8) Tachy-aquiles syndrome: Plan: s/p pacemaker in 2013 (9) Hypertension: Plan: chronic, at goal on Lasix and hydralazine. also takes spironolactone daily. Cont home meds except Lasix which is being given intravenously. SCDs/ambulation Full code Dispo-d/c home with home health ff up with Cardio in 1 week ff up with PCP in 1 week plan of care discussed with patient in detail and at length all questions answered he is understanding, agreeable, comfortable with the plan of care Discharge Exam General- oriented x 3, not in distress, speaks in sentences with no effort or accessory muscle use Eyes- anicteric Neck- no JVD Lungs- clear breath sounds bilaterally, no rales/wheezes Heart- normal rate, regular rhythm; no murmurs Abdomen- normal bowel sounds, nondistended, soft, nontender Extremities- no pretibial edema, no calf tenderness Neuro- alert, oriented x 3; no gross focal neurologic deficits Skin- warm & dry Updated Medication List Medication Instructions Recorded Confirmed Type aspirin 81 mg tablet,delayed 81 mg PO DAILY ##0 03/23/15 11/07/22 History release metformin 500 mg tablet,extended 2,000 mg PO QAM #0 tabs 03/23/15 11/07/22 History release 24 hr nitroglycerin 0.4 mg sublingual 0.4 mg sublingual Q5M PRN Chest 03/23/15 11/07/22 History tablet (Nitrostat) Pain #0 BTLS rosuvastatin 10 mg tablet 10 mg PO QAM #0 tabs 03/23/15 11/07/22 History apixaban 5 mg tablet 5 mg PO BID ##0 12/10/15 11/07/22 History acetaminophen 500 mg tablet 500 mg PO Q8H PRN Pain #0 tabs 09/13/16 11/07/22 History lidocaine 5 % topical patch 1 patch topical DAILY PRN Pain ##0 09/13/16 11/07/22 History cyanocobalamin (vitamin B-12) 500 500 mcg PO QAM 08/14/22 11/07/22 History mcg tablet empagliflozin 25 mg tablet 25 mg PO QAM 08/14/22 11/07/22 History (Jardiance) metoprolol succinate 50 mg 100 mg PO BID #120 tabs 09/15/22 11/07/22 Rx tablet,extended release 24 hr digoxin 125 mcg (0.125 mg) tablet 0.125 mg PO DAILY@1600 30 days #30 11/11/22 Rx ([facility]) tabs furosemide 20 mg tablet 60 mg PO QAM 30 days #90 tabs 11/11/22 Rx metoprolol succinate 25 mg 25 mg PO BID 30 days #60 tabs 11/11/22 Rx tablet,extended release 24 hr spironolactone 25 mg tablet 50 mg PO QAM 30 days #60 tabs 11/11/22 Rx Hospital Stay Data Consultations 11/07/22 15:23 ED Decision to Admit Stat 11/07/22 16:26 Consult Otolaryngology (Head and Neck) Routine 11/07/22 19:33 Consult Cardiology Routine 11/11/22 13:12 Consult Urology Routine Diagnostic Imagining Performed CXR: FINDINGS: An AP, portable, upright chest radiograph is compared to study dated 09/09/2022. The examination is degraded by portable technique and apical lordotic positioning. A 2-lead cardiac pacemaker is unchanged in position. The heart is enlarged note atherosclerotic calcification of the thoracic aorta. There is mild pulmonary vascular congestion. Trace pleural effusions are suspected. Atelectasis is noted at the lung bases. No pneumothorax is seen. The skeletal structures are osteopenic. The bony thorax is grossly intact. Arthritic change is noted in the shoulders. IMPRESSION: 1. Cardiomegaly and cardiac pacemaker with mild pulmonary vascular congestion. 2. Suspect trace pleural effusions. ACT 112: Negative or not required by law. Pending Results Patient Have Any Pending Studies at Discharge: No Discharge Instructions Given to Patient (Per Discharging Provider) PLEASE REFER TO YOUR NEW MEDICATION LIST AND FOLLOW INSTRUCTIONS CAREFULLY. YOUR NEW MEDICATIONS INCLUDE: METOPROLOL SUCCINATE 125 MG TWICE A DAY DIGOXIN 0.125 MG DAILY LASIX 60 MG DAILY ALDACTONE 50 MG DAILY HOLD: (until allowed by ENT SPECIALIST) ELIQUIS ASPIRIN PLEASE CALL YOUR PRIMARY CARE PHYSICIAN OR RETURN TO THE ER IF WITH WORSENING OF SYMPTOMS, INCLUDING LEG SWELLING, SHORTNESS OF BREATH, CHEST PAIN, DIZZINESS, PALPITATIONS, UNCONTROLLED NOSE BLEED, ETC FOLLOW UP WITH PRIMARY CARE PHYSICIAN OUTLINED ABOVE. FOLLOW UP WITH SEWER LINE REPAIRER DR. VEGA IN 1-2 WEEKS. Total Time Total Time Spent Total Time Spent (In Minutes): >30 minutes
[2022-11-12] MEDS ORDERED: SPIRONOLACTONE 25 MG TAB PO SCH (09:00)
[2022-11-12] MEDS ORDERED: FUROSEMIDE 20 MG TAB PO SCH (09:00)
== END 2022-11-11 16:30 | disposition home or self-care (01) | DRG 291 ==
LOC: ED 13:49 → 2S 16:38 → SUATTDRO 16:38 → 2S 19:00